=== PATIENT | female | born 1970 | race Caucasian/White ===

== ENCOUNTER → 2019-11-26 09:06 | Outpatient (BNVA) | payer MEDICARE, SELFPAY | PROVIDERS: Family Provider Registered Nurse; PCP Registered Nurse; Visit Provider Nurse Practitioner Psychiatric/Mental Health | DX: M06.08 Rheumatoid arthritis without rheumatoid factor, vertebrae (principal); Z11.59 Encounter for screening for other viral diseases; Z79.899 Other long term (current) drug therapy; M19.90 Unspecified osteoarthritis, unspecified site; G89.29 Other chronic pain; M45.7 Ankylosing spondylitis of lumbosacral region; F33.1 Major depressive disorder, recurrent, moderate; F43.12 Post-traumatic stress disorder, chronic; F41.1 Generalized anxiety disorder | CPT/HCPCS: 36415; 80076; 82306; 82565; 85651; 86140; 86704; 86803; 87340; 99214; G0463 ==

== ENCOUNTER → 2019-11-26 12:29 | Outpatient (BNVA) | payer MEDICARE, MEDICAID, SELFPAY | PROVIDERS: Family Provider Registered Nurse; PCP Registered Nurse; Visit Provider Internal Medicine Rheumatology | DX: Z11.59 Encounter for screening for other viral diseases (principal); Z79.899 Other long term (current) drug therapy; M19.90 Unspecified osteoarthritis, unspecified site; G89.29 Other chronic pain; M45.9 Ankylosing spondylitis of unspecified sites in spine; M45.7 Ankylosing spondylitis of lumbosacral region; M06.08 Rheumatoid arthritis without rheumatoid factor, vertebrae; F33.1 Major depressive disorder, recurrent, moderate; F43.12 Post-traumatic stress disorder, chronic; F41.1 Generalized anxiety disorder | CPT/HCPCS: 85025 ==

== ENCOUNTER → 2019-12-05 11:04 | Outpatient (BNVA) | payer MEDICARE, MEDICAID, SELFPAY | PROVIDERS: Family Provider Registered Nurse; PCP Registered Nurse; Visit Provider Registered Nurse | DX: E11.9 Type 2 diabetes mellitus without complications (principal); E78.5 Hyperlipidemia, unspecified; I10 Essential (primary) hypertension; Z79.899 Other long term (current) drug therapy | CPT/HCPCS: 80053; 80061; 83036; 83721 ==

== ENCOUNTER → 2020-02-18 08:19 | Outpatient (BNVA) | payer MEDICARE, MEDICAID, SELFPAY | PROVIDERS: Family Provider Registered Nurse; PCP Registered Nurse; Visit Provider Nurse Practitioner Psychiatric/Mental Health | DX: F33.1 Major depressive disorder, recurrent, moderate (principal); F43.12 Post-traumatic stress disorder, chronic; F41.1 Generalized anxiety disorder; G89.29 Other chronic pain; F51.04 Psychophysiologic insomnia | CPT/HCPCS: 99212 ==

== ENCOUNTER → 2020-06-03 10:01 | Outpatient (BNVA) | payer MEDICARE, MEDICAID, SELFPAY | PROVIDERS: Family Provider Registered Nurse; PCP Registered Nurse; Visit Provider Nurse Practitioner Psychiatric/Mental Health | DX: F33.1 Major depressive disorder, recurrent, moderate (principal); F41.1 Generalized anxiety disorder; F43.12 Post-traumatic stress disorder, chronic; G89.29 Other chronic pain; F51.04 Psychophysiologic insomnia | CPT/HCPCS: 80053; 80061; 81000; 83036; 83721; 85025; 99212 ==

== ENCOUNTER → 2020-08-26 09:19 | Outpatient (BNVA) | payer MEDICARE, MEDICAID, SELFPAY | PROVIDERS: Family Provider Registered Nurse; PCP Registered Nurse; Visit Provider Nurse Practitioner Psychiatric/Mental Health | DX: F33.1 Major depressive disorder, recurrent, moderate (principal); F41.1 Generalized anxiety disorder; F43.12 Post-traumatic stress disorder, chronic; G89.29 Other chronic pain | CPT/HCPCS: G0463 ==

== ENCOUNTER → 2020-09-01 09:22 | Outpatient (BNVA) | payer MEDICARE, MEDICAID, SELFPAY | PROVIDERS: Family Provider Registered Nurse; PCP Registered Nurse; Visit Provider Registered Nurse | DX: E11.65 Type 2 diabetes mellitus with hyperglycemia (principal); I10 Essential (primary) hypertension; J06.9 Acute upper respiratory infection, unspecified | CPT/HCPCS: 80053; 81000; 83036; 85025 ==

== ENCOUNTER → 2020-09-09 15:25 | Outpatient (BNVA) | payer MEDICARE, MEDICAID, SELFPAY | PROVIDERS: Family Provider Registered Nurse; PCP Registered Nurse; Visit Provider Registered Nurse | DX: E11.65 Type 2 diabetes mellitus with hyperglycemia (principal) | CPT/HCPCS: 36416; 82962 ==

== ENCOUNTER → 2020-10-08 13:09 | Outpatient (BNVA) | payer MEDICARE, MEDICAID, SELFPAY | PROVIDERS: Family Provider Registered Nurse; PCP Registered Nurse; Referring Provider Registered Nurse; Visit Provider Internal Medicine | DX: E11.319 Type 2 diabetes mellitus with unspecified diabetic retinopathy without macular edema (principal); E11.65 Type 2 diabetes mellitus with hyperglycemia; E78.5 Hyperlipidemia, unspecified | CPT/HCPCS: 99204 ==

== ENCOUNTER → 2020-11-17 09:32 | Outpatient (BNVA) | payer MEDICARE, MEDICAID, SELFPAY | PROVIDERS: Family Provider Registered Nurse; PCP Registered Nurse; Visit Provider Nurse Practitioner Psychiatric/Mental Health | DX: F33.1 Major depressive disorder, recurrent, moderate (principal); F41.1 Generalized anxiety disorder; F43.12 Post-traumatic stress disorder, chronic; G89.29 Other chronic pain | CPT/HCPCS: 99213 ==

== ENCOUNTER → 2021-02-09 08:25 | Outpatient (BNVA) | payer MEDICARE, MEDICAID, SELFPAY | PROVIDERS: Family Provider Registered Nurse; PCP Registered Nurse; Visit Provider Nurse Practitioner Psychiatric/Mental Health | DX: F33.1 Major depressive disorder, recurrent, moderate (principal); F41.1 Generalized anxiety disorder; F43.12 Post-traumatic stress disorder, chronic; G89.29 Other chronic pain | CPT/HCPCS: 99213 ==

== ENCOUNTER → 2021-04-15 08:26 | Outpatient (BNVA) | payer MEDICARE, MEDICAID, SELFPAY | PROVIDERS: Family Provider Registered Nurse; PCP Registered Nurse; Visit Provider Internal Medicine Rheumatology | DX: M19.90 Unspecified osteoarthritis, unspecified site (principal); Z11.1 Encounter for screening for respiratory tuberculosis; Z79.899 Other long term (current) drug therapy | CPT/HCPCS: 36415; 80076; 82565; 85025; 85651; 86140; 86480 ==

== ENCOUNTER → 2021-04-22 13:17 | Outpatient (BNVA) | payer MEDICARE, MEDICAID, SELFPAY | PROVIDERS: Family Provider Registered Nurse; PCP Registered Nurse; Visit Provider Internal Medicine Rheumatology | DX: M06.08 Rheumatoid arthritis without rheumatoid factor, vertebrae (principal); Z15.89 Genetic susceptibility to other disease; Z79.899 Other long term (current) drug therapy; M19.90 Unspecified osteoarthritis, unspecified site; M25.512 Pain in left shoulder; M77.8 Other enthesopathies, not elsewhere classified; E11.42 Type 2 diabetes mellitus with diabetic polyneuropathy; Z79.4 Long term (current) use of insulin; M79.7 Fibromyalgia; Z96.652 Presence of left artificial knee joint | CPT/HCPCS: 99214 ==

== ENCOUNTER 2021-04-29 08:51 | Outpatient (CLI) | payer MEDICARE, MEDICAID, SELFPAY ==
--- NOTE | 2021-04-29 08:57 | CT_ITS ---
WS: [id number] CT HEAD NONCONTRAST HISTORY: G44.52 - New daily persistent headache (NDPH) TECHNIQUE: Contiguous axial imaging performed through the brain in 2.5 mm imaging. Bone and soft tiss ue windows. All CT scans at [facility] use at least one of these dose optimization techniq ues: automated exposure control; mA and/or kV adjustment per patient size (includes targeted exams wh ere dose is matched to clinical indication); or iterative reconstruction. DLP: 925.91 mGycm COMPARISON: None available. No acute intracranial hemorrhage, midline shift or mass effect. No atrophy or prior infarcts or herniation. Ventricles: Normal size with no hydrocephalus. Paranasal sinuses: As visualized are clear. Mastoid air cells: Near complete opacification of the RIGHT mastoid air cells. LEFT mastoid air cells are normal. Calvarium and scalp: Skull is intact with no soft tissue edema or swelling. CT/CT head wo con* [id number] IMPRESSION: 1. No acute intracranial hemorrhage or edema. 2. No volume loss or hydrocephalus. 3. Increased opacification RIGHT mastoid air cells.
== END 2021-04-29 08:52 | disposition home or self-care (01) ==
PROVIDERS: PCP Registered Nurse; Visit Provider Registered Nurse
DX: G44.52 New daily persistent headache (NDPH) (principal); R42 Dizziness and giddiness; W19.XXXA Unspecified fall, initial encounter
CPT/HCPCS: 70450

== ENCOUNTER → 2021-05-04 07:23 | Outpatient (BNVA) | payer MEDICARE, MEDICAID, SELFPAY | PROVIDERS: PCP Registered Nurse; Visit Provider Nurse Practitioner Psychiatric/Mental Health | DX: F33.1 Major depressive disorder, recurrent, moderate (principal); F41.1 Generalized anxiety disorder; F43.12 Post-traumatic stress disorder, chronic; G89.29 Other chronic pain | CPT/HCPCS: 99213 ==

== ENCOUNTER 2021-05-13 11:26 | Outpatient (CLI) | payer MEDICARE, MEDICAID, SELFPAY ==
--- NOTE | 2021-05-13 11:45 | MR_ITS ---
WS: [id number] MRI LEFT SHOULDER NONCONTRAST TECHNIQUE: Sagittal T2, coronal T1, T2 and proton density imaging. Axial gradient PDE imaging. CLINICAL INFORMATION: M25.512 - Pain in left shoulder COMPARISON: MRI 2019 FINDINGS: Moderate degenerative arthritis AC joint with mild edema. Mild downsloping of the acromion. Slight na rrowing of the subacromial space. Mild tendinopathy distal supraspinatus. Tiny undersurface tear dist al infraspinatus unchanged. Normal teres minor. Chronic thinning of the distal subscapularis which ap pears intact. Tendinopathy with T2 signal abnormality involving the intra-articular biceps tendon with a small intr asubstance tear overlying the humeral head in the rotator interval. Normal biceps tendon in the bicip ital groove. Normal bone marrow signal in the glenoid and humerus. Degenerative fraying glenoid labru m. MR/MR shoulder LT wo con* [id number] IMPRESSION: 1. Moderate degenerative arthritis AC joint with mild edema. Mild downsloping of the acromion. 2. Normal rotator cuff. Mild chronic thinning of the distal subscapularis appe ars intact. 3. Tendinopathy with tiny intrasubstance tear involving the intra-articular bi ceps tendon overlying the humeral head in the rotator interval. 4. Tiny undersurface insertional tear infraspinatus similar to previous. 5. Mild tendinopathy distal supraspinatus. 6. No acute fractures.
== END 2021-05-13 11:27 | disposition home or self-care (01) ==
LOC: RADSHAW 11:30
PROVIDERS: PCP Registered Nurse; Visit Provider Registered Nurse
DX: M19.012 Primary osteoarthritis, left shoulder (principal); R60.0 Localized edema; W10.8XXA Fall (on) (from) other stairs and steps, initial encounter
CPT/HCPCS: 73221

== ENCOUNTER → 2021-05-26 15:36 | Outpatient (BNVA) | payer MEDICARE, MEDICAID, SELFPAY | PROVIDERS: PCP Registered Nurse; Visit Provider Registered Nurse | DX: L02.91 Cutaneous abscess, unspecified (principal) | CPT/HCPCS: 87070; 87075; 87077; 87184; 87205 ==

== ENCOUNTER 2021-06-05 13:03 | Outpatient (RCR) | payer MEDICARE, MEDICAID, SELFPAY | END 2021-06-16 23:59 | disposition home or self-care (01) | LOC: SPT 13:03 | PROVIDERS: PCP Registered Nurse; Referring Provider Registered Nurse; Visit Provider Registered Nurse | DX: M67.912 Unspecified disorder of synovium and tendon, left shoulder (principal) | CPT/HCPCS: 97110; 97162 ==

== ENCOUNTER 2021-06-17 06:00 | Outpatient (RCR) | payer MEDICARE, MEDICAID, SELFPAY | END 2021-07-16 23:59 | disposition home or self-care (01) | LOC: SPT 06:00 | PROVIDERS: PCP Registered Nurse; Referring Provider Registered Nurse; Visit Provider Registered Nurse | DX: M67.912 Unspecified disorder of synovium and tendon, left shoulder (principal) | CPT/HCPCS: 97110 ==

== ENCOUNTER → 2021-07-10 11:09 | Outpatient (BNVA) | payer MEDICARE, MEDICAID, SELFPAY | PROVIDERS: PCP Registered Nurse; Visit Provider Orthopaedic Surgery | DX: Z01.812 Encounter for preprocedural laboratory examination (principal); Z20.822 Contact with and (suspected) exposure to COVID-19 | CPT/HCPCS: 87635 ==

== ENCOUNTER 2021-07-16 05:28 | Day surgery (SDC) | payer MEDICARE, MEDICAID, SELFPAY ==
[2021-07-15 14:11] VITALS: BMI 36.7
[2021-07-16] VITALS (7 sets, daily range): BP systolic 152–162; BP diastolic 81–113; PULSE 80–95; RESP 15–18; TEMP 36.8–36.9; O2SAT 95–100
[2021-07-16] MEDS: sodium chloride 0.9% 1,000 ML 30 ML IV (06:02)
[2021-07-16 06:05] LABS: Glucose Point of Care 440 mg/dL (70-110)
[2021-07-16] MEDS: scopolamine 1.5 Patch 1 PATCH TRANSDERMA (06:29)
--- NOTE | 2021-07-16 07:55 | ANES.PREANE2 ---
Pre-Anesthetic Assessment Pre-Anesthetic Assessment: Height/Weight: Height 1.63 m Weight 97.069 kg Temp Pulse Resp BP Pulse Ox 98.4 F 91 18 156/99 99 07/16/21 05:48 07/16/21 05:48 07/16/21 05:48 07/16/21 05:48 07/16/21 05:48 Preop Diagnosis: Adhesive capsulitis left shoulder Proposed Procedure: Operation Date: 07/16/21 08:00 Proposed Procedures p Manipulation left shoulder 23528 E11.618 M75.00(Left) - Reza Rodgers MD Familial anesthetic complications: PONV Was Beta Le taken within 24 hours: Yes Was Clonidine taken within 24 hours: N/A Last intake: Intake Last Liquid Date 07/15/21 Last Liquid Time 23:50 Last Solid Date 07/15/21 Last Solid Time 20:00 Social: Social History: No alcohol and No tobacco Exam: Pre-Anes Outpt Exam: alert, oriented x 3, clear to auscultation bilaterally and regular rate & rhythm Airway: Cervical ROM: WNL MP: 3 Dentition: Chipped Additional comments: poor dentition CV/HEM: CV/HEM: HTN Metabolic: Metabolic: DM (very poorly controlled, BG average 380, hgbA1C 13), Hyperlipidemia and Morbid obesity Musc/skel: Comments: inflammatory arthritis on chronic steroid use Anesthetic Plan: ASA status: 4 Anesthesia: General and Regional (specify below) Other: LMA Risk of > 500 ml blood loss (7ml/kg in children): No Meds/Allergies Current Medications: Current Medications Generic Name Dose Route Start Last Admin Trade Name Freq PRN Reason Stop Dose Admin Sodium Chloride 1,000 mls @ 30 ml s/hr 07/16/21 05:45 07/16/21 06:02 Sodium Chloride 0.9% IV 07/17/21 05:44 30 mls/hr .Q24H ALMITA Administration PFSH Anesthesia PFSH: Medical History Chronic insomnia See subjective note below. Chronic pain See subjective note below. Chronic post-traumatic stress disorder (PTSD) Essential hypertension FH: total knee replacement left Generalized anxiety disorder High risk medication use HLA B27 (HLA B27 positive) Inflammatory arthritis Major depressive disorder, recurrent, moderate Seronegative spondyloarthropathy Uncontrolled type 2 diabetes mellitus Surgical History History of appendectomy History of hysterectomy for benign disease History of left knee replacement History of tonsillectomy Family History Mother Hypertension Diabetes Psychiatric illness Thyroid disease Father , in his 50's Family history of premature coronary artery disease Hyperlipidemia Myocardial infarction Brother Hypertension Sister No problems noted. Denies family history of Rheumatoid arthritis Lupus Social History Second hand smoke exposure: No Alcohol intake: never History of recent travel: No Data Anesthesia Other Labs: Laboratory Results - last 48 hr 07/16/21 06:00 POC Glucose 440 H Cardiac Studies: No Data to Display
[2021-07-16] MEDS: insulin regular-human 100 units/1 mL 10 UNIT IVP (08:04)
--- NOTE | 2021-07-16 08:06 | W.PM.OPSUD ---
Surgery/Procedure H&P Update DATE OF PROCEDURE: July 16, 2021 DATE H&P PERFORMED: 06/30/21 PREOP DIAGNOSIS: Adhesive capsulitis left shoulder PLANNED PROCEDURE: Operation Date: 07/16/21 08:00 Proposed Procedures p Manipulation left shoulder 54997 E11.618 M75.00(Left) - Reza Rodgers MD
--- NOTE | 2021-07-16 08:28 | PM.OP ---
Operative Report Date of procedure: July 16, 2021 Pre-op Diagnosis: Adhesive capsulitis left shoulder Post-op diagnosis: same Post-op Findings: Same Procedure Done: Manipulation under anesthesia left shoulder Pathology: none sent Surgeon: Reza Rodgers Anesthesia: MAC Complications: None Findings: Preoperatively the shoulder can be flexed only approximately 100 degrees and externally rotated 30 degrees. She could be abducted 50 degrees. Condition: stable Brief History: The patient is a 50-year-old diabetic with pain and loss of motion in the left shoulder attributable to adhesive capsulitis. She had failed conservative program of physical therapy with persistent pain and motion loss. She is taken to the operating room today for surgical manipulation to improve motion and overall function Procedure: The patient was taken the operating room and sedated by anesthesia. Once adequate sedation was obtained a timeout was performed. The shoulder was initially brought through a gentle range of motion with findings noted above. The contralateral shoulder was used for comparison. Initially the left shoulder was brought into 150 degrees of flexion, identical to the contralateral side. It was then brought to 90 degrees of abduction and externally rotated 70 degrees and axial rotated 70 degrees, again identical to the contralateral side. Find the elbow was brought to the side and externally rotated to 70 degrees, identical to the contralateral side. The patient was transferred back to recovery room in stable condition.
[2021-07-16] MEDS: oxyCODONE 5 mg IR Tab/Cap PO (09:16)
== END 2021-07-16 09:40 | disposition home or self-care (01) ==
PROVIDERS: PCP Registered Nurse; Visit Provider Orthopaedic Surgery
PROC: (CPT 23700; principal; 2021-07-16 08:00)
DX: M75.02 Adhesive capsulitis of left shoulder (principal); I10 Essential (primary) hypertension; E11.9 Type 2 diabetes mellitus without complications; E78.5 Hyperlipidemia, unspecified; E66.01 Morbid (severe) obesity due to excess calories; Z68.36 Body mass index [BMI] 36.0-36.9, adult; M19.90 Unspecified osteoarthritis, unspecified site; Z79.52 Long term (current) use of systemic steroids; F33.9 Major depressive disorder, recurrent, unspecified; Z82.49 Family history of ischemic heart disease and other diseases of the circulatory system; Z83.3 Family history of diabetes mellitus
CPT/HCPCS: 23700; 36416; 82962; 96374; J1815; J2704; J2795; J3010; J7030

== ENCOUNTER 2021-07-17 06:00 | Outpatient (RCR) | payer MEDICARE, MEDICAID, SELFPAY | END 2021-08-16 23:59 | disposition home or self-care (01) | LOC: SPT 06:00 | PROVIDERS: PCP Registered Nurse; Visit Provider Orthopaedic Surgery | DX: Z47.89 Encounter for other orthopedic aftercare (principal); M67.912 Unspecified disorder of synovium and tendon, left shoulder | CPT/HCPCS: 97110; 97161 ==

== ENCOUNTER → 2021-07-27 07:03 | Outpatient (BNVA) | payer MEDICARE, MEDICAID, SELFPAY | PROVIDERS: PCP Registered Nurse; Visit Provider Nurse Practitioner Psychiatric/Mental Health | DX: F33.1 Major depressive disorder, recurrent, moderate (principal); F41.1 Generalized anxiety disorder; F43.12 Post-traumatic stress disorder, chronic | CPT/HCPCS: 99213 ==

== ENCOUNTER → 2021-08-12 08:41 | Outpatient (BNVA) | payer MEDICARE, MEDICAID, SELFPAY | PROVIDERS: PCP Registered Nurse; Visit Provider Internal Medicine Rheumatology | DX: M19.90 Unspecified osteoarthritis, unspecified site (principal); Z15.89 Genetic susceptibility to other disease; Z79.899 Other long term (current) drug therapy | CPT/HCPCS: 36415; 80076; 82565; 85025; 86140 ==

== ENCOUNTER → 2021-08-19 12:41 | Outpatient (BNVA) | payer MEDICARE, MEDICAID, SELFPAY | PROVIDERS: PCP Registered Nurse; Visit Provider Internal Medicine Rheumatology | DX: M06.08 Rheumatoid arthritis without rheumatoid factor, vertebrae (principal); Z15.89 Genetic susceptibility to other disease; Z79.899 Other long term (current) drug therapy; M19.90 Unspecified osteoarthritis, unspecified site; M25.512 Pain in left shoulder; G89.29 Other chronic pain; E11.42 Type 2 diabetes mellitus with diabetic polyneuropathy; Z79.4 Long term (current) use of insulin; M79.7 Fibromyalgia; F43.10 Post-traumatic stress disorder, unspecified; F32.A Depression, unspecified; E78.5 Hyperlipidemia, unspecified; M77.8 Other enthesopathies, not elsewhere classified; Z96.652 Presence of left artificial knee joint | CPT/HCPCS: 99214 ==

== ENCOUNTER → 2021-10-08 10:21 | Outpatient (BNVA) | payer MEDICARE, MEDICAID, SELFPAY | PROVIDERS: PCP Registered Nurse; Visit Provider Registered Nurse | DX: Z11.52 Encounter for screening for COVID-19 (principal) | CPT/HCPCS: 87635 ==

== ENCOUNTER → 2021-10-14 09:56 | Outpatient (BNVA) | payer MEDICARE, MEDICAID, SELFPAY | PROVIDERS: PCP Registered Nurse; Visit Provider Internal Medicine | DX: Z11.52 Encounter for screening for COVID-19 (principal); E11.65 Type 2 diabetes mellitus with hyperglycemia; E78.5 Hyperlipidemia, unspecified | CPT/HCPCS: 80053; 80061; 83036 ==

== ENCOUNTER → 2021-10-19 07:59 | Outpatient (BNVA) | payer MEDICARE, MEDICAID, SELFPAY | PROVIDERS: PCP Registered Nurse; Visit Provider Nurse Practitioner Psychiatric/Mental Health | DX: F33.1 Major depressive disorder, recurrent, moderate (principal); F41.1 Generalized anxiety disorder; F43.12 Post-traumatic stress disorder, chronic | CPT/HCPCS: 99213 ==

== ENCOUNTER → 2021-10-21 11:01 | Outpatient (BNVA) | payer MEDICARE, MEDICAID, SELFPAY | PROVIDERS: PCP Registered Nurse; Visit Provider Internal Medicine | DX: E11.65 Type 2 diabetes mellitus with hyperglycemia (principal); E11.319 Type 2 diabetes mellitus with unspecified diabetic retinopathy without macular edema; E78.5 Hyperlipidemia, unspecified; Z79.4 Long term (current) use of insulin; Z79.84 Long term (current) use of oral hypoglycemic drugs | CPT/HCPCS: 99214 ==

== ENCOUNTER 2021-10-31 12:47 | Emergency (ER) | payer MEDICARE, MEDICAID, SELFPAY ==
[2021-10-31 13:08] VITALS: BP 188/125; PULSE 107; RESP 16; TEMP 37; O2SAT 99
--- NOTE | 2021-10-31 15:27 | XRR_ITS ---
PROCEDURE INFORMATION: Exam: XR Chest Exam date and time: 10/31/2021 3:27 PM Age: 50 years old Clinical indication: Cough and dyspnea. TECHNIQUE: Imaging protocol: XR of the chest. Views: 1 view. COMPARISON: CR Chest 2 views* [id number] 11/26/2014 2:29 PM FINDINGS: Lungs: No pulmonary consolidation. Pleural spaces: No pleural effusion. No pneumothorax. Heart/Mediastinum: The cardiac silhouette is approximately unchanged given differences in patient rotation. No gross evidence of pneumomediastinum. Bones/joints: No gross fracture. XR/XR chest 1V portable [id number] IMPRESSION: No acute cardiopulmonary abnormality identified.
--- NOTE | 2021-10-31 15:44 | ED_ITS ---
HPI - COVID General: Chief Complaint: COVID symptoms Stated Complaint: Coughing,runny nose, vomitting from coughing Time Seen by Provider: 10/31/21 15:26 Triage information: Has fever, cough or shortness of breath . No known COVID + exposure last 14 days History of Present Illness: HPI Narrative: 50-year-old female presents emergency room cough runny nose myalgias posttussive vomiting as well as sore throat. No anosmia no diarrhea has not been vaccinated for COVID not previously known to be COVID-positive. MD complaint: has COVID symptoms COVID 19 common symptoms: positive fever(s), chills, cough and non-productive cough; negative throat pain, nasal congestion, nausea, vomiting or diarrhea COVID 19 other sytmptoms: negative chest pain, requiring oxygen or respiratory distress Onset (ago): week(s) (1) Severity: mild Pertinent comorbid conditions: obesity Treatment prior to arrival: acetaminophen and ibuprofen COVID Results: SARS-CoV-2 RNA (RT-PCR) Detected (NOT DETECTED) A 10/31/21 15:45 10/31/21 SARS-CoV-2 (PCR) Not detected (NOT DETECT) 10/08/21 10:21 10/08/21 Coronavirus Type 229E (PCR) Not detected (NOT DETECT) 10/08/21 10:21 10/08/21 Review of Systems Const: Reports: fever(s) and chills ENMT: Denies: throat pain, ear or mastoid pain, nasal discharge or nasal congestion Card: Denies: chest pain Resp: Reports: non-productive cough GI: Denies: abdominal pain, nausea, vomiting, hematemesis, coffee ground emesis, diarrhea, constipation, bloating, hematochezia or melena : Denies: flank pain, difficulty voiding, dysuria, urinary frequency or urinary urgency Skin/Breast: Denies: rash or pruritus PFSH ED PFSH: Medical History Chronic insomnia See subjective note below. Chronic pain See subjective note below. Chronic post-traumatic stress disorder (PTSD) Essential hypertension FH: total knee replacement left Generalized anxiety disorder High risk medication use HLA B27 (HLA B27 positive) Inflammatory arthritis Major depressive disorder, recurrent, moderate Psychiatric care Seronegative spondyloarthropathy Uncontrolled type 2 diabetes mellitus Surgical History History of appendectomy History of hysterectomy for benign disease History of left knee replacement History of tonsillectomy Family History Mother Hypertension Diabetes Psychiatric illness Thyroid disease Father , in his 50's Family history of premature coronary artery disease Hyperlipidemia Myocardial infarction Brother Hypertension Sister No problems noted. Denies family history of Rheumatoid arthritis Lupus Social History Smoking and tobacco status: never smoked Second hand smoke exposure: No Alcohol intake: never History of recent travel: No Physical Exam Const: COMMON NORMALS: no acute distress GENERAL APPEARANCE: cooperative and comfortable ORIENTATION/CONSCIOUSNESS: Yes awake, Yes oriented to person, Yes oriented to place and Yes oriented to time HENMT: COMMON NORMALS: normocephalic, atraumatic, hearing grossly normal bilaterally and external ears normal HEAD & SCALP: normocephalic and atraumatic EXTERNAL EAR: Yes external ears normal Neck/C-Spine: COMMON NORMALS: no JVD Resp: COMMON NORMALS: normal respiratory effort and No use of accessory muscles AUSCULTATION: wheezes (Scant bilateral) Cardio: COMMON NORMALS: no JVD, regular rate, regular rhythm and No murmurs present (Cardio) RATE: regular rate RHYTHM: regular rhythm GI: COMMON NORMALS: Soft to palpation and No hepatosplenomegaly present AUSCULTATION: Yes normoactive bowel sounds PALPATION: Yes Soft to palpation, No Tenderness to palpation present (GI), No Guarding due to palpation present (GI) and Yes No hepatosplenomegaly present Extremity: COMMON NORMALS: normal to inspection, capillary refill normal, no clubbing, cyanosis or edema, no calf tenderness and no pedal edema Neuro: SENSORIUM/ORIENTATION: Yes oriented to person, Yes oriented to place and Yes oriented to time Skin: COMMON NORMALS: no rashes or lesions noted GENERAL SKIN EXAM: no rashes or lesions noted Course Vital Signs: Vital signs: Vital Signs Temperature 98.6 F 10/31/21 13:08 Pulse Rate 97 10/31/21 16:09 Respiratory Rate 18 10/31/21 16:09 Blood Pressure 173/102 10/31/21 15:45 Pulse Oximetry 99 10/31/21 16:09 MDM - COVID MDM Narrative Medical decision making narrative: Clinically suspect COVID-19 supportive cares monitor home O2 sats return for further problems we will try to make arrangements at a for outpatient medical advice Lab Data Labs: Lab Results 10/31/21 15:45 SARS-CoV-2 RNA (RT-PCR) Detected A (NOT DETECTED) COVID Results: SARS-CoV-2 RNA (RT-PCR) Detected (NOT DETECTED) A 10/31/21 15:45 10/31/21 SARS-CoV-2 (PCR) Not detected (NOT DETECT) 10/08/21 10:21 10/08/21 Coronavirus Type 229E (PCR) Not detected (NOT DETECT) 10/08/21 10:21 10/08/21 Discharge Plan Discharge Patient Disposition: Home Clinical Impression: Clinical diagnosis of COVID-19 Condition: Stable Prescriptions: No Action Cosentyx (2 Syringes) 150 mg/mL syringe 300 mg SUBCUT .Q4 weeks Qty: 2 3RF sulfasalazine 500 mg tablet See Rx Instructions .ROUTE .COMPLEX Qty: 120 3RF Dose Instruction: TAKE 2 TABLETS BY MOUTH TWICE DAILY. TAKE WITH FOOD Rx Instructions: TAKE 2 TABLETS BY MOUTH TWICE DAILY. TAKE WITH FOOD duloxetine [Cymbalta] 60 mg capsule,delayed release(DR/EC) 60 mg PO DAILY Qty: 90 0RF Rx Instructions: take one capsule by mouth every day with the 30 mg duloxetine [Cymbalta] 30 mg capsule,delayed release(DR/EC) 30 mg PO DAILY Qty: 90 0RF Rx Instructions: take one capsule by mouth every day with the 60 mg amitriptyline 100 mg tablet 100 mg PO .QHS Qty: 90 0RF Rx Instructions: take one tablet by mouth daily at bedtime Belsomra 5 mg tablet 5 mg PO .QHS Qty: 90 0RF Rx Instructions: take one tablet by mouth daily at bedtime ergocalciferol (vitamin D2) 2,000 unit tablet 2,000 unit PO DAILY 0RF (DME) lancets [BD Ultra Fine Lancets] 33 gauge misc See Rx Instructions .ROUTE .MEDSUPPLY Qty: 100 3RF Rx Instructions: two times daily amlodipine 10 mg tablet 10 mg PO DAILY Qty: 90 0RF Janumet XR 100-1,000 mg tablet, ER multiphase 24 hr 1 tab PO DAILY Qty: 90 3RF diclofenac sodium 75 mg tablet,delayed release (DR/EC) 75 mg PO BID PRN (Reason: pain, moderate-severe ) Qty: 30 1RF atorvastatin 20 mg tablet See Rx Instructions .ROUTE .COMPLEX Qty: 90 0RF Dose Instruction: Take 1 tablet by mouth once daily Rx Instructions: Take 1 tablet by mouth once daily Levemir FlexTouch U-100 Insuln 100 unit/mL (3 mL) insulin pen 110 unit SUBCUT DAILY 0RF albuterol sulfate [ProAir HFA] 90 mcg/actuation HFA aerosol inhaler 1 inh inhalation QID Qty: 8.5 0RF amoxicillin-pot clavulanate [Augmentin] 875-125 mg tablet 1 tab PO BID 7 Days Qty: 14 0RF oxycodone 5 mg tablet 5 mg PO Q4H PRN (Reason: pain) 0RF Label Comments: Patient states no longer using this medicine. (DME) OneTouch Verio test strips Strip See Rx Instructions .ROUTE .MEDSUPPLY Qty: 100 0RF Rx Instructions: one strip daily to check blood sugar losartan-hydrochlorothiazide 100-12.5 mg tablet 1 tab PO DAILY Qty: 30 0RF (DME) FreeStyle Palak 2 Sensor Kit See Rx Instructions .Route Qty: 2 3RF Rx Instructions: As directed (DME) FreeStyle Palak 2 [place] Misc See Rx Instructions .Route Qty: 1 0RF Rx Instructions: As directed Jardiance 25 mg tablet 25 mg PO QAM Qty: 90 3RF Discharge Orders: Discharge ED (Routine); Ordered 10/31/21 Ordered By: Peng Farley Referrals: Joellen Hill, STRATEGY INTERN [Primary Care Provider] - Discharge Diet: Usual diet Discharge Activity: Resume usual activity Patient Instructions: Opioid Safety Activity Restrictions/Additional Instructions: Clinically suspect that you do have COVID-19 at this time. We will contact you with the test once it results. You would be a candidate for monoclonal antibodies which can be ordered once the test result comes back if you have any further problems or difficulty with breathing return to the emergency room. Monitor your oxygen saturation with a pulse oximeter given to you in the ER. Should remain above 90% while at rest. Coding Level of Care Code ED As[employer]er [employer]assis for Chg Fwd Exam Comprehensive
[2021-10-31 15:45] VITALS: BP 173/102; PULSE 99; RESP 16; O2SAT 100
[2021-10-31 16:09] VITALS: PULSE 97; RESP 18; O2SAT 99
[2021-11-02 02:37] LABS: Quest SARS-CoV-2 RNA DETECTED (NOT DETECTED)
== END 2021-10-31 16:05 | disposition home or self-care (01) ==
PROVIDERS: Emergency Provider Family Medicine; PCP Registered Nurse
DX: U07.1 COVID-19 (principal); Z79.4 Long term (current) use of insulin; I10 Essential (primary) hypertension; E11.9 Type 2 diabetes mellitus without complications
CPT/HCPCS: 71045; 87635; 99282

== ENCOUNTER → 2021-12-25 11:06 | Outpatient (BNVA) | payer MEDICARE, MEDICAID, SELFPAY | PROVIDERS: PCP Registered Nurse; Visit Provider Internal Medicine | DX: E11.319 Type 2 diabetes mellitus with unspecified diabetic retinopathy without macular edema (principal); E11.65 Type 2 diabetes mellitus with hyperglycemia; E78.5 Hyperlipidemia, unspecified; Z79.4 Long term (current) use of insulin | CPT/HCPCS: 99214 ==

== ENCOUNTER 2022-05-27 09:38 | Outpatient (CLI) | payer MEDICARE, MEDICAID, SELFPAY ==
[2022-05-27 10:44] LABS: Basophils % 0.7 %; Eosinophils # 0.4 10^3/uL (0.0-0.8); Eosinophils % 6.3 %; Hematocrit 39.5 % (37.0-47.0); Hemoglobin 13.1 g/dL (11.5-15.3); Lymphocytes # 2.3 10^3/uL (0.8-4.8); Mean Corpuscular HGB Conc 33.2 g/dL (30.0-36.0); Mean Corpuscular Hemoglobin 26.8 pg (28.0-34.0); Mean Corpuscular Volume 80.9 fl (81-99); Mean Platelet Volume 10.8 fL (7.4-10.4); Monocytes # 0.4 10^3/uL (0.2-0.9); Monocytes % 7.8 %; Neutrophils # 2.39 10^3/uL (1.8-7.7); Neutrophils % 43.3 %; Nucleated Red Blood Cells % 0 %; Platelet Count 293 10^3/cmm (130-400); Red Blood Count 4.88 10^6/uL (4.1-5.3); Red Cell Distribution Width 13.5 % (12.1-15.1); White Blood Count 5.5 10^3/uL (4.0-10.0)
[2022-05-27 11:03] LABS: Alanine Aminotransferase 14 U/L (0-33); Albumin Level 3.8 g/dL (3.5-5.2); Alkaline Phosphatase 172 IU/L (35-105); Aspartate Amino Transferase 14 U/L (0-32); C Reactive Protein 7.8 mg/L (0.0-4.9); Chol HDL Ratio 5.09 mg/dL (0.0-4.40); Cholesterol 173 mg/dL (0-200); Globulin 2.9 g/dL (1.3-4.6); Glomerular Filtration Rate 58.5 mL/min (90-130); HDL Cholesterol 34 mg/dL (60-100); LDL Cholesterol Calculated 63 mg/dL (50-129); LDL HDL Ratio 1.85 RATIO (0.00-3.22); Total Bilirubin 0.7 mg/dL (0.15-1.2); Total Protein 6.7 g/dL (6.6-8.7); Triglycerides 379 mg/dL (0-150)
[2022-05-27 11:21] LABS: Estmated Average Glucose 252; Hemoglobin A1C 10.4 % (4.0-6.0)
== END 2022-05-27 09:39 | disposition home or self-care (01) ==
PROVIDERS: Absent Provider Internal Medicine; PCP Registered Nurse; Visit Provider Internal Medicine Rheumatology
DX: M06.08 Rheumatoid arthritis without rheumatoid factor, vertebrae (principal); E11.319 Type 2 diabetes mellitus with unspecified diabetic retinopathy without macular edema; E11.65 Type 2 diabetes mellitus with hyperglycemia; E78.5 Hyperlipidemia, unspecified; Z79.4 Long term (current) use of insulin; Z79.84 Long term (current) use of oral hypoglycemic drugs; Z79.899 Other long term (current) drug therapy
CPT/HCPCS: 80061; 80076; 82565; 83036; 85025; 86140; 99214

== ENCOUNTER 2022-06-03 11:19 | Outpatient (CLI) | payer MEDICARE, MEDICAID, SELFPAY ==
--- NOTE | 2022-06-03 11:26 | MM_ITS ---
WS: [id number] Bilateral screening 3D tomosynthesis digital mammogram, 06/03/2022 Clinical Data: Z12.39 - Encounter for other screening for malignant neop... Comparison: None. Findings: The breast parenchymal pattern shows fat replacement. No spiculated masses or clustered calcification s are seen. There are no secondary signs of carcinoma. MM/[place] [id number] Impression: 1. Negative bilateral mammogram no prior exam for review. 2. Recommend annual screening mammograms. BIRADS: 1-Negative FOLLOW UP: 1 Year Follow-up The CAD price checker was used.
== END 2022-06-03 11:20 | disposition home or self-care (01) ==
LOC: RAD 11:21
PROVIDERS: PCP Registered Nurse; Visit Provider Registered Nurse
DX: Z12.31 Encounter for screening mammogram for malignant neoplasm of breast (principal)
CPT/HCPCS: 77063; 77067

== ENCOUNTER → 2022-06-10 09:18 | Outpatient (BNVA) | payer MEDICAID, SELFPAY | PROVIDERS: PCP Registered Nurse; Visit Provider Surgery | DX: Z12.11 Encounter for screening for malignant neoplasm of colon (principal) | CPT/HCPCS: 99024 ==

== ENCOUNTER → 2022-06-17 12:20 | Outpatient (BNVA) | payer MEDICARE, MEDICAID, SELFPAY | PROVIDERS: PCP Registered Nurse; Visit Provider Internal Medicine Rheumatology | DX: Z79.899 Other long term (current) drug therapy (principal); M19.90 Unspecified osteoarthritis, unspecified site; M06.08 Rheumatoid arthritis without rheumatoid factor, vertebrae; Z15.89 Genetic susceptibility to other disease | CPT/HCPCS: 82565; 84520 ==

== ENCOUNTER 2022-07-08 07:51 | Day surgery (SDC) | payer MEDICARE, MEDICAID, SELFPAY ==
[2022-07-07 10:21] VITALS: BMI 38.9
[2022-07-08 08:08] VITALS: BP 169/112; PULSE 120; RESP 18; TEMP 36.2; O2SAT 99
[2022-07-08] MEDS: sodium chloride 0.9% 1,000 ML 30 ML IV (08:23)
--- NOTE | 2022-07-08 09:43 | P.ANESASSM_ITS ---
Pre-Anesthetic Assessment Height/Weight: Height 1.63 m Weight 102.965 kg Temp Pulse Resp BP Pulse Ox O2 Del Method 97.2 F L 120 H 18 169/112 99 07/08/22 08:08 07/08/22 08:08 07/08/22 08:08 07/08/22 08:08 07/08/22 08:08 07/08/22 08:08 Preop Diagnosis: Adhesive capsulitis left shoulder Operation Date: 07/08/22 09:30 Proposed Procedures p Colonoscopy 46198,Z12.11(Not Applicable) - Lino Ferraro MD Familial anesthetic complications: none Was Beta Le taken within 24 hours: N/A Was Clonidine taken within 24 hours: N/A Last intake: Intake Last Liquid Date 07/07/22 Last Liquid Time 23:50 Last Solid Date 07/06/22 Last Solid Time 20:00 Social No alcohol and No tobacco Exam alert, oriented x 3, clear to auscultation bilaterally and regular rate & rhythm Airway Submandibular: within normal limits Cervical ROM: within normal limits Mallampati: Class II Dentition: chipped (Chipped upper left central incisor ) Pulmonary None reported CV/HEM Hypertension Chronic Renal Insufficiency Hepatic None reported GI Gastroesophageal Reflux Disease (Poorly controlled ) Metabolic Diabetes Mellitus and Hyperlipidemia Obesity Musc/skel Osteoarthritis/DJD Cervical neck pain Inflammatory arthritis Neuropsych Anxiety and Depression Anesthetic Plan ASA status: 3 Anesthesia: Anesthesia Evaluation and MAC Other: I discussed with the patient risks, goals, and benefits of MAC and general anesthesia. We discussed spectrum of MAC anesthesia including conversion to general as well as possibility of recall of intraoperative stimuli including discomfort/pain. Patient agrees to proceed with MAC. Medications/Allergies Home Medications Medication Instructions Recorded Confirmed Last Taken Type ergocalciferol (vitamin D2) 50 mcg 2,000 unit PO DAILY 11/26/19 07/08/22 07/07/22 History (2,000 unit) tablet lancets 33 gauge (BD Ultra Fine #100 ea 12/05/19 07/01/22 Unknown Rx Lancets) amlodipine 10 mg tablet 10 mg PO DAILY #90 tabs 09/01/20 07/08/22 07/07/22 Rx losartan 100 1 tab PO DAILY #30 tabs 04/21/21 07/08/22 07/07/22 Rx mg-hydrochlorothiazide 12.5 mg tablet diclofenac sodium 75 mg 75 mg PO BID PRN pain, 04/22/21 07/08/22 07/06/22 Rx tablet,delayed release moderate-severe #30 tabs flash glucose scanning reader #1 ea 05/29/21 07/01/22 Unknown Rx (FreeStyle Palak 2 [place]) empagliflozin 25 mg tablet 25 mg PO QAM #90 tabs 05/27/22 07/08/22 07/07/22 Rx (Jardiance) flash glucose sensor (FreeStyle #6 ea 05/27/22 07/01/22 Unknown Rx Palak 2 Sensor) sitagliptin 100 mg-metformin ER 1 tab PO DAILY #90 tabs 05/27/22 07/08/22 07/07/22 Rx 1,000 mg tablet,extended [id number] mp (Janumet XR) secukinumab 150 mg/mL subcutaneous 300 mg (2 mL) SUBCUT .Q4 weeks #2 06/17/22 07/08/22 06/16/22 Rx syringe (Cosentyx 300 mg/2 mL Syringes () amitriptyline 100 mg tablet 100 mg PO .QHS #90 tabs 07/01/22 07/08/22 07/06/22 Rx duloxetine 30 mg capsule,delayed 30 mg PO DAILY #90 caps 07/01/22 07/08/22 07/07/22 Rx release (Cymbalta) duloxetine 60 mg capsule,delayed 60 mg PO DAILY #90 caps 07/01/22 07/08/22 07/07/22 Rx release (Cymbalta) suvorexant 5 mg tablet (Belsomra) 5 mg PO .QHS #90 tabs 07/01/22 07/08/22 07/06/22 Rx atorvastatin 20 mg tablet 20 mg PO DAILY 07/07/22 07/08/22 07/07/22 History insulin regular hum U-500 conc See Rx Instructions .Route .COMPLEX 07/07/22 07/08/22 07/07/22 History (Humulin R U-500 (Conc) Insulin Kwikpen) sulfasalazine 500 mg tablet 1,000 g PO DAILY 07/07/22 07/08/22 07/07/22 History Allergies Allergy/AdvReac Type Severity Reaction Status Date / Time venom-honey bee Allergy Severe ALGY-Redness Verified 07/07/22 10:16 of Skin codeine AdvReac Severe ADR-Vomitin Verified 07/07/22 10:16 g morphine AdvReac Severe ADR-Vomitin Verified 07/07/22 10:16 g propoxyphene AdvReac Severe ADR-Vomitin Verified 07/07/22 10:16 [From Darvocet-N] g latex AdvReac Intermediate ALGY-Rash Verified 07/07/22 10:16 Current Medications Generic Name Dose Route Start Last Admin Trade Name Efrain PRN Reason Stop Dose Admin Sodium Chloride 1,000 mls @ 30 mls/hr 07/08/22 08:00 07/08/22 08:23 Sodium Chloride 0.9% IV 07/09/22 07:59 30 mls/hr .Q24H ALMITA Administration PFSH Anesthesia Medical History Chronic insomnia See subjective note below. Chronic pain See subjective note below. Chronic post-traumatic stress disorder (PTSD) Based on the information provided and the extensive previous chart history, Lizy meets the diagnostic criteria for Post-traumatic stress disorder in that she reported directly experienced traumatic events with symptoms including: recurrent, involuntary, and intrusive distressing memories of the traumatic event(s); dissociative reactions) in which the individual feels or acts as if the traumatic event(s) were recurring; intense or prolonged psychological distress at exposure to internal or external cues that symbolize or resemble an aspect of the traumatic event(s);persistent avoidance of stimuli associated with the traumatic event(s), beginning after the traumatic event(s) occurred, as evidenced by avoidance of or efforts to avoid distressing memories, thoughts, or feelings about or closely associated with the traumatic event(s) and avoidance of or efforts to avoid external reminders that arouse distressing memories, thoughts, or feelings about or closely associated with the traumatic event; persistent and exaggerated negative beliefs or expectations about oneself, others, or the world; persistent negative emotional state; markedly diminished interest or participation in significant activities; persistent inability to experience positive emotions; irritable behavior and angry outbursts; problems with concentration; sleep disturbances. The duration of the disturbance is more than one month. The disturbance causes clinically significant distress or impairment in social, occupational, or other important areas of functioning. Essential hypertension FH: total knee replacement left Generalized anxiety disorder High risk medication use HLA B27 (HLA B27 positive) Inflammatory arthritis Major depressive disorder, recurrent, in partial remission Major depressive disorder, recurrent, moderate Psychiatric care Seronegative spondyloarthropathy Uncontrolled type 2 diabetes mellitus Surgical History History of appendectomy History of hysterectomy for benign disease History of left knee replacement History of tonsillectomy Family History Mother Hypertension Diabetes Psychiatric illness Thyroid disease Father , in his 50's Family history of premature coronary artery disease Hyperlipidemia Myocardial infarction Brother Hypertension Sister No problems noted. Denies family history of Rheumatoid arthritis Lupus Social History Smoking and tobacco status: never smoked Second hand smoke exposure: No Alcohol intake: never History of recent travel: No Data Anesthesia Cardiac Studies: No Data to Display
--- NOTE | 2022-07-08 10:23 | P.HP_ITS ---
Same Day Surgery H&P Indication for Procedure/HPI DATE OF PROCEDURE: July 08, 2022 CHIEF COMPLAINT/INDICATIONFOR SURGICAL PROCEDURE: Screening colonoscopy PREOP DIAGNOSIS: Screening colonoscopy PLANNED PROCEDURE: Operation Date: 07/08/22 09:30 Proposed Procedures p Colonoscopy 64018,Z12.11(Not Applicable) - Lino Ferraro MD This is a pleasant 51 years old female patient referred to my practice for screening colonoscopy. Patient denies any bleeding per rectum or history of colon cancer. ROS All systems have been reviewed negative except as for the above or per problem list. Medications/Allergies* Home Medications Medication Instructions Recorded Confirmed Type ergocalciferol (vitamin D2) 50 mcg 2,000 unit PO DAILY 11/26/19 07/08/22 History (2,000 unit) tablet atorvastatin 20 mg tablet 20 mg PO DAILY 07/07/22 07/08/22 History insulin regular hum U-500 conc See Rx Instructions .Route .COMPLEX 07/07/22 07/08/22 History (Humulin R U-500 (Conc) Insulin Kwikpen) sulfasalazine 500 mg tablet 1,000 g PO DAILY 07/07/22 07/08/22 History Allergies/Adverse Reactions Allergy/AdvReac Type Severity Reaction Status Date / Time venom-honey bee Allergy Severe ALGY-Redness Verified 07/07/22 10:16 of Skin codeine AdvReac Severe ADR-Vomitin Verified 07/07/22 10:16 g morphine AdvReac Severe ADR-Vomitin Verified 07/07/22 10:16 g propoxyphene AdvReac Severe ADR-Vomitin Verified 07/07/22 10:16 [From Rosette] g latex AdvReac Intermediate ALGY-Rash Verified 07/07/22 10:16 Current Medications: Generic Name Dose Route Start Last Admin Trade Name Freq PRN Reason Stop Dose Admin Sodium Chloride 1,000 mls @ 30 mls/hr 07/08/22 08:00 07/08/22 08:23 Sodium Chloride 0.9% IV 07/09/22 07:59 30 mls/hr .Q24H ALMITA Administration Pertinent History/Comorbid Conditions* Medical History (Updated 07/05/22 @ 16:08 by Reena Horne APRN) Chronic insomnia See subjective note below. Chronic pain See subjective note below. Chronic post-traumatic stress disorder (PTSD) Based on the information provided and the extensive previous chart history, Lizy meets the diagnostic criteria for Post-traumatic stress disorder in that she reported directly experienced traumatic events with symptoms including: recurrent, involuntary, and intrusive distressing memories of the traumatic event(s); dissociative reactions) in which the individual feels or acts as if the traumatic event(s) were recurring; intense or prolonged psychological distress at exposure to internal or external cues that symbolize or resemble an aspect of the traumatic event(s);persistent avoidance of stimuli associated with the traumatic event(s), beginning after the traumatic event(s) occurred, as evidenced by avoidance of or efforts to avoid distressing memories, thoughts, or feelings about or closely associated with the traumatic event(s) and avoidance of or efforts to avoid external reminders that arouse distressing memories, thoughts, or feelings about or closely associated with the traumatic event; persistent and exaggerated negative beliefs or expectations about oneself, others, or the world; persistent negative emotional state; markedly diminished interest or partici pation in significant activities; persistent inability to experience positive emotions; irritable behavior and angry outbursts; problems with concentration; sleep disturbances. The duration of the disturbance is more than one month. The disturbance causes clinically significant distress or impairment in social, occupational, or other important areas of functioning. Essential hypertension FH: total knee replacement left Generalized anxiety disorder High risk medication use HLA B27 (HLA B27 positive) Inflammatory arthritis Major depressive disorder, recurrent, in partial remission Major depressive disorder, recurrent, moderate Psychiatric care Seronegative spondyloarthropathy Uncontrolled type 2 diabetes mellitus Surgical History (Updated 10/09/20 @ 12:36 by Shalonda Jennings MD) History of appendectomy History of hysterectomy for benign disease History of left knee replacement History of tonsillectomy Family History (Updated 10/08/20 @ 13:23 by Jose Antonio Black LPN) Father, in his 50's Diabetes Mother Hyperlipidemia Father Psychiatric illness Mother Myocardial infarction Father Family history of premature coronary artery disease Father Hypertension Mother Brother Thyroid disease Mother Denies family history of Rheumatoid arthritis Lupus Social History Smoking and tobacco status: never smoked Second hand smoke exposure: No Alcohol intake: never History of recent travel: No Pertinent Exam Findings alert, oriented x 3, clear to auscultation bilaterally, regular rate & rhythm and procedure specific exam findings (Abdominal examination nontender nondistended soft) Recommendations Surgery/Procedure today (Screening colonoscopy) Other Plans: Plan of care; After thorough history and physical examination and reviewing the chart, plan to perform screening colonoscopy. I discussed with the patient in details the risks,benefits,alternatives and indications.The risk of aspiration, bleeding, soft tissue injury, perforation of the colon and other potential concomitant complications were explained to the patient in details,also the potential need for Laproscoy/Laparotomy to repair any related complications including but not limited to colectomy and or Closotomy.The patient understood this well and did agree to proceed. Rationale was carefully and clearly discussed with the patient.Appropriate informed consent have been reviewed and signed All questions have been answered and all concerns have been addressed to patient's satisfaction. Verbal and written Instructions were given to the patient for colonoscopy prep Coding Level of Care Code Acute Smoking Tobacco Cutter Operator for Leanna Lester
[2022-07-08 10:55] VITALS: BP 134/86; PULSE 81; RESP 12; TEMP 36.3; O2SAT 99
[2022-07-08 11:11] VITALS: BP 149/94; PULSE 82; RESP 16; O2SAT 98
--- NOTE | 2022-07-08 14:41 | ANE.PACU2 ---
Inpatient post-anesthesia follow up: Airway intact: Yes Vital signs: Temperature 97.4 F Pulse Rate 82 Respiratory Rate 16 Blood Pressure 149/94 Pulse Oximetry 98 Oxygen Delivery Me thod Room Air Oxygen Flow Rate 4 Fraction of Inspir ed Oxygen Hydration adequate: Yes Nausea and vomiting: No Pain level: 1 Mental status: Baseline
== END 2022-07-08 11:30 | disposition home or self-care (01) ==
PROVIDERS: PCP Registered Nurse; Visit Provider Surgery
PROC: 0DJD8ZZ Inspection of Lower Intestinal Tract, Via Natural or Artificial Opening Endoscopic (ICD-10-PCS; CPT 45378; principal; 2022-07-08 09:30)
DX: Z12.11 Encounter for screening for malignant neoplasm of colon (principal); I10 Essential (primary) hypertension; E11.9 Type 2 diabetes mellitus without complications; K21.9 Gastro-esophageal reflux disease without esophagitis; E78.5 Hyperlipidemia, unspecified; E66.9 Obesity, unspecified; Z68.39 Body mass index [BMI] 39.0-39.9, adult; Z79.4 Long term (current) use of insulin
CPT/HCPCS: G0121; J2704; J3490; J7030

== ENCOUNTER 2022-12-28 10:21 | Outpatient (CLI) | payer MEDICARE, MEDICAID, SELFPAY ==
--- NOTE | 2022-12-28 10:51 | ECG_ITS ---
[facility] Test Date: 2022-12-28 Pat Name: Lizy Evans Department: Room: Gender: Female Technical Information Specialist: : 1970 Requested By: Joellen Hill Order Number: [id number] Herson MD: CHACORTA DICKENS Measurements Intervals [place] Rate: 109 P: -79 ME: 179 QRS: 80 QRSD: 79 T: 257 QT: 322 QTc: 435 Interpretive Statements ECTOPIC ATRIAL TACHYCARDIA POSSIBLE ANTERIOR MYOCARDIAL INFARCTION , OF INDETERMINATE AGE [30 ms Q WAVE IN V3/V4, OR R < 0.2 mV IN V4] MODERATE T-WAVE ABNORMALITY, CONSIDER INFERIOR ISCHEMIA [-0.1+ mV T-WAVE IN II/aVF] No previous ECG available for comparison Electronically Signed On 12-28-2022 17:42:02 CDT by CHACORTA DICKENS [email or web address]
== END 2022-12-28 10:22 | disposition home or self-care (01) ==
LOC: RT 10:26
PROVIDERS: PCP Registered Nurse; Visit Provider Nurse Practitioner Psychiatric/Mental Health
DX: R00.0 Tachycardia, unspecified (principal)
CPT/HCPCS: 93005

== ENCOUNTER 2023-01-30 14:25 | Inpatient (IN) | payer MEDICARE, MEDICAID, SELFPAY ==
[2023-01-30] VITALS (8 sets, daily range): BP systolic 140–193; BP diastolic 79–112; PULSE 90–110; RESP 14–17; TEMP 36.5; O2SAT 99–100; BMI 30.9
--- NOTE | 2023-01-30 15:54 | ED_ITS ---
HPI - Back Pain/Injury General: Chief Complaint: Back Pain/Injury Stated Complaint: sob,dizzy, low back pain Time Seen by Provider: 01/30/23 15:43 History of Present Illness: Patient presents to the ER with complaints of low back pain that radiate up her back and down her back. Patient says she has also had nausea and vomiting and this is worse when the pain flares up. Patient says she has had a fever 1 time over the last couple days. Patient also reports headache dizziness just overall not feeling well. Patient is an insulin requiring diabetic MD elicited complaint: back pain Pertinent past history: prior back pain Onset (ago): day(s) (Several days) Timing: constant Severity: moderate Similar Symptoms Previously: Yes Quality: burning and aching Location: lumbar spine Radiation: left upper leg Exacerbating factors: movement Relieving factors: movement Associated symptoms: Reports chills, fever(s), nausea and vomiting; Deny dysuria Work related injury: No Review of Systems General: Reports: 10 or more systems reviewed and unremarkable except in HPI and below Const: Reports: fever(s), chills and body aches Eyes: Denies: change in vision or photophobia ENMT: Denies: throat pain or odynophagia Card: Denies: chest pain, palpitations or irregular heart rhythm Resp: Denies: dyspnea, productive cough or non-productive cough GI: Reports: nausea and vomiting : Denies: flank pain, difficulty voiding or dysuria Musc: Reports: back pain; Denies: neck pain Skin/Breast: Denies: rash or pruritus Neuro: Denies: headache(s), numbness in extremities or weakness in extremities PFSH ED PFSH: Medical History Bereavement Chronic insomnia See subjective note below. Chronic pain See subjective note below. Chronic post-traumatic stress disorder (PTSD) Essential hypertension FH: total knee replacement left Generalized anxiety disorder High risk medication use HLA B27 (HLA B27 positive) Inflammatory arthritis Major depressive disorder, recurrent, in partial remission Major depressive disorder, recurrent, moderate Psychiatric care Seronegative spondyloarthropathy Uncontrolled type 2 diabetes mellitus Surgical History History of appendectomy History of hysterectomy for benign disease History of left knee replacement History of tonsillectomy Family History Mother Hypertension Diabetes Psychiatric illness Thyroid disease Father , in his 50's Family history of premature coronary artery disease Hyperlipidemia Myocardial infarction Brother Hypertension Sister No problems noted. Denies family history of Rheumatoid arthritis Lupus Social History Smoking and tobacco status: never smoked Second hand smoke exposure: No Alcohol intake: never Physical Exam Const: COMMON NORMALS: no acute distress, average body habitus, patient oriented x3, no limitations, healthy appearing, alert and well nourished HENMT: COMMON NORMALS: normocephalic, atraumatic, hearing grossly normal bilaterally, external ears normal, Normal external nose present and moist oral mucous membranes HEAD & SCALP: normocephalic and atraumatic NOSE: Normal external nose present EXTERNAL EAR: Yes external ears normal Eye: COMMON NORMALS: Equal, round and reactive pupils present, EOMs intact bilaterally, conjunctivae normal and no scleral icterus CONJUNCTIVA: Yes conjunctivae normal PUPIL: Yes Equal, round and reactive pupils present Neck/C-Spine: COMMON NORMALS: full ROM, no lymphadenopathy, supple, no meningeal signs, no JVD and Thyroid normal THYROID: Thyroid normal Chest: COMMONS NORMALS: normal inspection of the chest and normal palpation of entire chest wall Resp: COMMON NORMALS: normal respiratory effort, No retractions, No use of accessory muscles and clear to auscultation bilaterally AUSCULTATION: clear to auscultation bilaterally Cardio: COMMON NORMALS: no JVD GI: COMMON NORMALS: Normal to inspection, nondistended, normoactive bowel sounds present, Soft to palpation, non-tender, No hepatosplenomegaly present and no masses PALPATION: Yes Soft to palpation and Yes No hepatosplenomegaly present : COMMON NORMALS: Yes no CVA tenderness BLADDER/KIDNEY EXAM: Yes no CVA tenderness Back/Pelvis: COMMON NORMALS: no CVA tenderness Neuro: COMMON NORMALS: patient oriented x3 SENSORIUM/ORIENTATION: Yes alert MENINGEAL SIGNS: Yes no meningeal signs Course Vital Signs: Vital signs: Vital Signs Temperature 97.7 F 01/30/23 14:36 Pulse Rate 93 01/30/23 19:19 Respiratory Rate 14 01/30/23 15:53 Blood Pressure 168/89 01/30/23 19:19 Pulse Oximetry 100 01/30/23 19:19 Oxygen Delivery Me thod Room Air 01/30/23 19:19 MDM - Back Pain/Injury Medical Decision Making Patient presents to the ER with multiple complaints but does states she has back pain. And does not feel good all over. Physical exam was performed as well as lab work and imaging. Lab work showed an elevated white count at 17, creatinine at 2.54 normally runs between 0.6 and 1.3, urine was remarkable for urinary tract infection with hematuria. CT scan of the abdomen pelvis without contrast was obtained which showed mild to moderate right hydronephrosis and hydroureter with perinephric edema as well as left kidney perinephric edema. Dr. Torres was consulted for admission and IV antibiotics which she agreed with. Dr. Mclaughlin was consulted and notified by myself. Differential Diagnosis Likely pyelonephritis; Unlikely lumbar radiculopathy, sciatica or strain of lumbar region Labs 01/30/23 15:50 01/30/23 15:50 Radiology Impressions Abdomen/Pelvis CT 01/30/23 17:35 IMPRESSION: 1. Hyhp-hp-sclbrmxa right hydronephrosis and hydroureter with perinephric edema, please correlate for pyelonephritis. Negative for obstructing lesion seen, findings may reflect sequelae of a recently passed calculus and/or underlying infection. 2. Several punctate calcifications in the pelvis felt to likely reflect phleboliths. 3. Left kidney perinephric edema may reflect underlying infection, renal insufficiency is also consideration. 4. Constipation. 5. Coronary artery atherosclerotic calcifications. 6. Cholelithiasis. Laboratory Results WBC 17.9 10^3/uL (4.0-10.0) H 01/30/23 15:50 RBC 4.09 10^6/uL (4.1-5.3) L 01/30/23 15:50 Hgb 10.1 g/dL (11.5-15.3) L 01/30/23 15:50 Hct 32.0 % (37.0-47.0) L 01/30/23 15:50 MCV 78.2 fl (81-99) L 01/30/23 15:50 MCH 24.7 pg (28.0-34.0) L 01/30/23 15:50 MCHC 31.6 g/dL (30.0-36.0) 01/30/23 15:50 RDW 13.7 % (12.1-15.1) 01/30/23 15:50 Plt Count 666 10^3/cmm (130-400) H 01/30/23 15:50 MPV 9.4 fL (7.4-10.4) 01/30/23 15:50 Neut % (Auto) 81.9 % 01/30/23 15:50 Lymph % (Auto) 10.2 % 01/30/23 15:50 [place] % (Auto) 4.4 % 01/30/23 15:50 Eos % (Auto) 0.4 % 01/30/23 15:50 Baso % (Auto) 0.4 % 01/30/23 15:50 Neut # (Auto) 14.69 10^3/uL (1.8-7.7) H 01/30/23 15:50 Lymph # (Auto) 1.8 10^3/uL (0.8-4.8) 01/30/23 15:50 [place] # (Auto) 0.8 10^3/uL (0.2-0.9) 01/30/23 15:50 Eos # (Auto) 0.1 10^3/uL (0.0-0.8) 01/30/23 15:50 Baso # (Auto) 0.1 10^3/uL (0.0-0.1) 01/30/23 15:50 Nucleated RBC % (auto) 0 % 01/30/23 15:50 Nucleated RBCs # 0.0 /100WBC 01/30/23 15:50 Sodium 125 mmol/L (136-145) L 01/30/23 15:50 Potassium 3.9 mmol/L (3.5-5.1) 01/30/23 15:50 Chloride 85 mmol/L (98-107) L 01/30/23 15:50 Carbon Dioxide 17 mmol/L (22-29) L 01/30/23 15:50 Anion Gap 26.9 (5-19) H 01/30/23 15:50 BUN 48 mg/dL (6-20) H 01/30/23 15:50 Creatinine 2.5 mg/dL (0.5-0.9) H 01/30/23 15:50 GFR Calculation 20.2 mL/min (90-130) L 01/30/23 15:50 Glucose 460 mg/dL (65-115) H 01/30/23 15:50 Calculated Osmolality 293 mOsm/kg (285-295) 01/30/23 15:50 Lactic Acid 0.9 mmol/L (0.5-2.2) 01/30/23 17:46 Calcium 8.9 mg/dL (8.5-10.5) 01/30/23 15:50 Magnesium 2.0 mg/dL (1.7-2.3) 01/30/23 15:50 Total Bilirubin 0.4 mg/dL (0.15-1.2) 01/30/23 15:50 AST 10 U/L (0-32) 01/30/23 15:50 ALT 9 U/L (0-33) 01/30/23 15:50 Alkaline Phosphatase 96 U/L (35-105) 01/30/23 15:50 Total Protein 8.5 g/dL (6.6-8.7) 01/30/23 15:50 Albumin 3.2 g/dL (3.5-5.2) L 01/30/23 15:50 Globulin 5.3 g/dL (1.3-4.6) H 01/30/23 15:50 Urine Color Straw (Yellow) 01/30/23 15:50 Urine Appearance Cloudy (CLEAR) A 01/30/23 15:50 Urine pH 5 (5-7) 01/30/23 15:50 Ur Specific [place] 1.015 (1.005-1.030) 01/30/23 15:50 Urine Protein 1+ (Negative) H 01/30/23 15:50 Urine Glucose (UA) 4+ (Normal) H 01/30/23 15:50 Urine Ketones 1+ (Negative) H 01/30/23 15:50 Urine Blood 3+ (Negative) H 01/30/23 15:50 Urine Nitrate Negative (Negative) 01/30/23 15:50 Urine Bilirubin Neg (Negative) 01/30/23 15:50 Urine Urobilinogen Norm mg/dL (Negative) 01/30/23 15:50 Ur Leukocyte Esterase 2+ (Negative) H 01/30/23 15:50 Urine RBC 10-15 /hpf (0-2) H 01/30/23 15:50 Urine WBC >100 /hpf (0-5) H 01/30/23 15:50 Ur Squamous Epith Cells 0-4 /hpf (0-5) H 01/30/23 15:50 Amorphous Sediment Not Reportable 01/30/23 15:50 Urine Bacteria 2+ /hpf (NONE) H 01/30/23 15:50 Discharge Plan Discharge Patient Disposition: Admitted As Inpatient Clinical Impression: Pyelonephritis, Acute renal insufficiency, Hydronephrosis Condition: Stable Prescriptions: No Action ergocalciferol (vitamin D2) 2,000 unit tablet 2,000 unit PO DAILY (DME) lancets [BD Ultra Fine Lancets] 33 gauge misc See Rx Instructions .ROUTE .MEDSUPPLY Qty: 100 3RF Rx Instructions: two times daily amlodipine 10 mg tablet 10 mg PO DAILY Qty: 90 0RF diclofenac sodium 75 mg tablet,delayed release (DR/EC) 75 mg PO BID PRN (Reason: pain, moderate-severe ) Qty: 30 1RF Cosentyx (2 Syringes) 150 mg/mL syringe 300 mg SUBCUT .Q4 weeks Qty: 2 3RF (DME) FreeStyle [place] 2 Sensor Kit See Rx Instructions .Route Qty: 6 3RF Rx Instructions: Change every 14 days. Jardiance 25 mg tablet 25 mg PO QAM Qty: 90 3RF Janumet XR 100-1,000 mg tablet, ER multiphase 24 hr 1 tab PO DAILY Qty: 90 3RF duloxetine [Cymbalta] 30 mg capsule,delayed release(DR/EC) 30 mg PO DAILY Qty: 90 0RF Rx Instructions: take one capsule by mouth every day with the 60 mg duloxetine [Cymbalta] 60 mg capsule,delayed release(DR/EC) 60 mg PO DAILY Qty: 90 0RF Rx Instructions: take one capsule by mouth every day with the 30 mg suvorexant 10 mg tablet 10 mg PO .q hs Qty: 90 0RF Rx Instructions: Take one tablet daily at bedtime; discontinue the 5 mg dose losartan-hydrochlorothiazide 100-12.5 mg tablet 1 tab PO DAILY Qty: 30 0RF (DME) FreeStyle [place] 2 [place] Misc See Rx Instructions .Route Qty: 1 0RF Rx Instructions: As directed mebendazole 100 mg tablet,chewable 100 mg PO ONCE Qty: 2 0RF Rx Instructions: Take 1 tab today; repeat in 14 days. Treat everyone in the home at the same t matt. Humulin R U-500 (Conc) Kwikpen 500 unit/mL (3 mL) insulin pen See Rx Instructions .ROUTE .COMPLEX Qty: 48 1RF Dose Instruction: INJECT 40 UNITS SUBCUTANEOUSLY WITH BREAKFAST, 100 UNITS WITH LUNCH, & 100 UNITS WITH SUPPER (BULK) Rx Instructions: INJECT 40 UNITS SUBCUTANEOUSLY WITH BREAKFAST, 100 UNITS WITH LUNCH, & 100 UNITS WITH SUPPER (BULK) atorvastatin 20 mg tablet 20 mg PO DAILY Rx Instructions: Take 1 tablet by mouth once daily sulfasalazine 500 mg tablet 1,000 g PO DAILY Rx Instructions: TAKE 2 TABLETS BY MOUTH TWICE DAILY. TAKE WITH FOOD Referrals: Joellen Hill FNP [Primary Care Provider] - Coding Level of Care Code ED Load Dropper for Leanna Lester
[2023-01-30 16:04] LABS: Basophils # 0.1 10^3/uL (0.0-0.1); Basophils % 0.4 %; Eosinophils # 0.1 10^3/uL (0.0-0.8); Eosinophils % 0.4 %; Hemoglobin 10.1 g/dL (11.5-15.3); Lymphocytes # 1.8 10^3/uL (0.8-4.8); Lymphocytes % 10.2 %; Mean Corpuscular HGB Conc 31.6 g/dL (30.0-36.0); Mean Corpuscular Hemoglobin 24.7 pg (28.0-34.0); Mean Corpuscular Volume 78.2 fl (81-99); Mean Platelet Volume 9.4 fL (7.4-10.4); Monocytes # 0.8 10^3/uL (0.2-0.9); Monocytes % 4.4 %; Neutrophils # 14.69 10^3/uL (1.8-7.7); Neutrophils % 81.9 %; Nucleated Red Blood Cells % 0 %; Platelet Count 666 10^3/cmm (130-400); Red Blood Count 4.09 10^6/uL (4.1-5.3); Red Cell Distribution Width 13.7 % (12.1-15.1); White Blood Count 17.9 10^3/uL (4.0-10.0)
[2023-01-30] MEDS: sodium chloride 0.9% 1,000 ML 999 ML IV ×2 (16:09→18:01)
[2023-01-30] MEDS: ondansetron 2 mg/ML SDV 2 mL 4 MG IVP ×2 (16:10→23:54)
[2023-01-30] MEDS: ketorolac 30 mg/mL INJ IVP (16:10)
[2023-01-30 16:27] LABS: Urine Appearance Cloudy (CLEAR); Urine Color Straw (Yellow)
[2023-01-30 16:28] LABS: Add Urine Microscopic? YES; Bilirubin Urine Neg (Negative); Blood Urine 3+ (Negative); Glucose Urine UA 4+ (Normal); Ketones Urine 1+ (Negative); Leukocyte Esterase Urine 2+ (Negative); Nitrate Urine Negative (Negative); Protein Urine 1+ (Negative); Specific Gravity, Urine 1.015 (1.005-1.030); Urobilinogen Urine Norm (Negative); pH Urine 5 (5-7)
[2023-01-30 16:29] LABS: Add Urine Culture? Yes; Bacteria Urine 2+ /hpf; Squamous Epithelial Cell Urine 0-4 /hpf (0-5); WBC Urine >100 /hpf (0-5)
[2023-01-30 16:36] LABS: Alanine Aminotransferase 9 U/L (0-33); Albumin Level 3.2 g/dL (3.5-5.2); Alkaline Phosphatase 96 U/L (35-105); Aspartate Amino Transferase 10 U/L (0-32); Blood Urea Nitrogen 48 mg/dL (6-20); Calcium 8.9 mg/dL (8.5-10.5); Carbon Dioxide 17 mmol/L (22-29); Globulin 5.3 g/dL (1.3-4.6); Glomerular Filtration Rate 20.2 mL/min (90-130); Glucose 460 mg/dL (65-115); Potassium 3.9 mmol/L (3.5-5.1); Total Bilirubin 0.4 mg/dL (0.15-1.2); Total Protein 8.5 g/dL (6.6-8.7)
[2023-01-30 17:17] LABS: Osmolality Calculated 293 mOsm/kg (285-295); Sodium 125 mmol/L (136-145)
[2023-01-30 17:18] LABS: Anion Gap 26.9 (5-19); Chloride 85 mmol/L (98-107)
--- NOTE | 2023-01-30 17:35 | CTR_ITS ---
PROCEDURE INFORMATION: Exam: CT Abdomen And Pelvis Without Contrast Exam date and time: 01/30/2023 5:48 PM Age: 52 years old Clinical indication: Other: Hematuria; Prior surgery; Surgery date: 6+ months; Surgery type: Hysterectomy, appendectomy; Patient HX: Luq pain; Additional info: Hematuria, leukocytosis, TECHNIQUE: Imaging protocol: Computed tomography of the abdomen and pelvis without contrast. Radiation optimization: All CT scans at this facility use at least one of these dose optimization techniques: automated exposure control; mA and/or kV adjustment per patient size (includes targeted exams where dose is matched to clinical indication); or iterative reconstruction. REPORTING DATA: Count of CT and Cardiac NM exams in prior 12 months: This patient has received 0 known CTs and 0 known cardiac nuclear medicine studies in the 12 months prior to the current study. COMPARISON: CR XR pelvis 1-2V* [id number] 02/28/2019 2:01 PM RADIATION DOSE METRICS: Total DLP (mGy-cm): 667.13 FINDINGS: Coronary arteries: Coronary artery atherosclerotic calcifications. Liver: Normal. No mass. Gallbladder and bile ducts: Cholelithiasis. Pancreas: Normal. No ductal dilation. Spleen: Normal. No splenomegaly. Adrenal glands: Normal. No mass. Kidneys and ureters: Pxvi-vy-afmgjxbp right hydronephrosis and hydroureter with perinephric edema, please correlate for pyelonephritis. Negative for obstructing lesion seen, findings may reflect sequelae of a recently passed calculus and/or underlying infection. Left kidney perinephric edema may reflect underlying infection, renal insufficiency is also consideration. Stomach and bowel: Constipation. Appendix: No evidence of appendicitis. Intraperitoneal space: Unremarkable. No free air. No significant fluid collection. Vasculature: Several punctate calcifications in the pelvis felt to likely reflect phleboliths. Lymph nodes: Unremarkable. No enlarged lymph nodes. Urinary bladder: Unremarkable as visualized. Reproductive: Unremarkable as visualized. Bones/joints: Unremarkable. No acute fracture. Soft tissues: Unremarkable. CT/CT abdomen pelvis wo con [id number] IMPRESSION: 1. Grfs-ro-pftkpoqq right hydronephrosis and hydroureter with perinephric edema, please correlate for pyelonephritis. Negative for obstructing lesion seen, findings may reflect sequelae of a recently passed calculus and/or underlying infection. 2. Several punctate calcifications in the pelvis felt to likely reflect phleboliths. 3. Left kidney perinephric edema may reflect underlying infection, renal insufficiency is also consideration. 4. Constipation. 5. Coronary artery atherosclerotic calcifications. 6. Cholelithiasis.
[2023-01-30] MEDS: piperacillin-tazobactam 3.375 GM in sodium chloride 0.9% (plus) 50 ML IV ×2 (18:01→23:56)
[2023-01-30 18:13] LABS: Lactic Sepsis W/Reflex 0.9 mmol/L (0.5-2.2)
--- NOTE | 2023-01-30 20:10 | PM.HP ---
Providers/Chief Complaint Primary Care Provider: SEGUN Mulligan Chief Complaint: sob,dizzy, low back pain History of Present Illness Lizy Evans is a 52 year old female with past medical history of chronic pain, PTSD, hypertension, generalized anxiety disorder, depression, uncontrolled type 2 diabetes mellitus with history of DKA presented to the hospital today for right-sided flank pain that she has been having for the last 2 weeks. She says it has progressed to the point that he started vomiting due to the pain. She says she has been feeling cold and having chills and today just does not have the energy to get up or do anything. He stated that she has no symptoms of dysuria, difficulty urinating at all. She says her hemoglobin A1c is 7.0. She sees Dr. Jennings for endocrinology. She says she no longer takes amlodipine, lisinopril, hydrochlorothiazide. She is only on duloxetine, Jardiance, atorvastatin, Janumet at this time. Denies chest pain, shortness of breath, nausea, vomiting diarrhea at this time. Does endorse some flank pain on the right side. ED course: BP 168/89, respiratory 14, pulse 93, temperature 97.7, saturating 100% on room air. WBC 17, creatinine 2.54, baseline 0.6-1.3. Urinalysis abnormal suggesting UTI with hematuria. CT abdomen pelvis obtained which showed mild to moderate right hydronephrosis and hydroureter with perinephric edema as well as left kidney perinephric edema. Sodium 125, lactic acid 0.9. Medications/Allergies Home Medications Medication Instructions Recorded Confirmed Last Taken Type ergocalciferol (vitamin D2) 50 mcg 2,000 unit PO DAILY 11/26/19 12/28/22 07/07/22 History (2,000 unit) tablet lancets 33 gauge (BD Ultra Fine #100 ea 12/05/19 12/28/22 Unknown Rx Lancets) amlodipine 10 mg tablet 10 mg PO DAILY #90 tabs 09/01/20 12/28/22 07/07/22 Rx losartan 100 1 tab PO DAILY #30 tabs 04/21/21 12/28/22 07/07/22 Rx mg-hydrochlorothiazide 12.5 mg tablet diclofenac sodium 75 mg 75 mg PO BID PRN pain, 04/22/21 12/28/22 07/06/22 Rx tablet,delayed release moderate-severe #30 tabs flash glucose scanning reader #1 ea 05/29/21 12/28/22 Unknown Rx (FreeStyle Pal[place] 2 [place]) empagliflozin 25 mg tablet 25 mg PO QAM #90 tabs 05/27/22 12/28/22 07/07/22 Rx (Jardiance) flash glucose sensor (FreeStyle #6 ea 05/27/22 12/28/22 Unknown Rx Palak 2 Sensor kit) sitagliptin phos 100 mg-metformin 1 tab PO DAILY #90 tabs 05/27/22 12/28/22 07/07/22 Rx ER 1,000 mg tablet,extend rel 24h mp (Janumet XR) secukinumab 150 mg/mL subcutaneous 300 mg (2 mL) SUBCUT .Q4 weeks #2 06/17/22 12/28/22 06/16/22 Rx syringe (Cosentyx 300 mg/2 mL Syringes () atorvastatin 20 mg tablet 20 mg PO DAILY 07/07/22 12/28/22 07/07/22 History sulfasalazine 500 mg tablet 1,000 g PO DAILY 07/07/22 12/28/22 07/07/22 History mebendazole 100 mg chewable tablet 100 mg PO ONCE enterobiasis #2 tabs 08/27/22 12/28/22 Unknown Rx insulin regular hum U-500 conc 500 See Rx Instructions .Route 12/09/22 12/28/22 Unknown Rx unit/mL(3 mL) subcut pen (Humulin .COMPLEX #48 mL R U-500 (Conc) Insulin Kwikpen) duloxetine 30 mg capsule,delayed 30 mg PO DAILY #90 caps 12/28/22 01/26/23 Unknown Rx release (Cymbalta) duloxetine 60 mg capsule,delayed 60 mg PO DAILY #90 caps 12/28/22 01/26/23 Unknown Rx release (Cymbalta) suvorexant 10 mg tablet 10 mg PO .q hs #90 tabs 12/28/22 01/26/23 Unknown Rx Allergies Allergy/AdvReac Type Severity Reaction Status Date / Time venom-honey bee Allergy Severe ALGY-Redness Verified 01/25/23 09:02 of Skin codeine AdvReac Severe ADR-Vomitin Verified 01/25/23 09:02 g morphine AdvReac Severe ADR-Vomitin Verified 01/25/23 09:02 g propoxyphene AdvReac Severe ADR-Vomitin Verified 01/25/23 09:02 [From Rosette] g latex AdvReac Intermediate ALGY-Rash Verified 01/25/23 09:02 PFSH Acute PFSH: Medical History Bereavement Chronic insomnia See subjective note below. Chronic pain See subjective note below. Chronic post-traumatic stress disorder (PTSD) Essential hypertension FH: total knee replacement left Generalized anxiety disorder High risk medication use HLA B27 (HLA B27 positive) Inflammatory arthritis Major depressive disorder, recurrent, in partial remission Major depressive disorder, recurrent, moderate Psychiatric care Seronegative spondyloarthropathy Uncontrolled type 2 diabetes mellitus Surgical History History of appendectomy History of hysterectomy for benign disease History of left knee replacement History of tonsillectomy Family History Mother Hypertension Diabetes Psychiatric illness Thyroid disease Father , in his 50's Family history of premature coronary artery disease Hyperlipidemia Myocardial infarction Brother Hypertension Sister No problems noted. Denies family history of Rheumatoid arthritis Lupus Social History Smoking and tobacco status: never smoked Second hand smoke exposure: No Alcohol intake: never Vitals/I&O/Wt Last Vital Signs Temp 97.7 F 01/30/23 14:36 Pulse 90 01/30/23 19:43 Resp 14 01/30/23 15:53 BP 163/94 01/30/23 19:43 Pulse Ox 100 01/30/23 19:43 O2 Del Method Room Air 01/30/23 19:43 Weight last 48 hrs Weight 81.647 kg Physical Exam Narrative: General: Alert oriented x3, patient seen laying in bed at this time appearing comfortable. HEENT: Normocephalic, atraumatic, EOMI, breathing comfortably Cardio: Regular rate rhythm, normal S1-S2 Respiratory: Clear to auscultation bilaterally no wheezes or rhonchi GI: Abdomen soft, mildly tender at right flank area, right CVA tenderness positive bowel sounds + Behavior: Appropriate and cooperative Extremities: No edema bilateral lower extremities. Data 04/16/23 15:50 01/30/23 20:30 A&P Assessment and plan (1) Pyelonephritis: (2) Acute renal insufficiency: (3) Hydronephrosis: Qualifiers: Hydronephrosis type: unspecified Qualified Code(s): N13.30 - Unspecified hydronephrosis (4) Hyperlipidemia: (5) Generalized anxiety disorder: (6) Major depressive disorder, recurrent, moderate: Plan #Acute right pyelonephritis #Right hydronephrosis, hydroureter #Uncontrolled diabetes mellitus #Anxiety, depression #Acute kidney injury - Dr. Mclaughlin consulted from ER. ? Place on Zosyn 3 times daily ? Obtain urine culture, blood cultures ? Continue IV fluid normal saline 125 cc/h ? High intensity insulin sliding scale ACHS ? Consistent carbohydrate diet ? Hold metformin, Jardiance, sitagliptin ? Continue duloxetine, atorvastatin. ? Patient medications need to be reconciled ? Tylenol for fever, Zofran for nausea ? Monitor renal function with IV fluid hydration. Check BMP daily. ? CHELLY present. Check Fena. -Continue fluid hydration ? Check hemoglobin A1c ?recheck bmp now before administering lispro - talked with rn, er doc. Reviewed cbc, bmp, lactic acid, ct abd results and discussed them with the patient. - Reviewed chart and endocrinology documentation Full code SCDs, heparin SQ twice daily for DVT prophylaxis Attestations Medical Necessity Statement*: > 2 midnight stay for mgmt of pyelonephritis Other Coding Information Focused coding review requested Diagnoses Pyelonephritis N12 Acute renal insufficiency N28.9 Hydronephrosis N13.30 Hydronephrosis type: unspecified Hyperlipidemia E78.5 Generalized anxiety disorder F41.1 Major depressive disorder, recurrent, moderate F33.1
[2023-01-30] MEDS: heparin 5,000 unit/mL INJ 1 mL 5000 UNIT SUBCUT (20:41)
[2023-01-30] MEDS: sodium chloride 0.9% 1,000 ML 125 ML IV (20:41)
[2023-01-30 21:13] LABS: Anion Gap 20.9 (5-19); Blood Urea Nitrogen 46 mg/dL (6-20); Calcium 8.3 mg/dL (8.5-10.5); Carbon Dioxide 19 mmol/L (22-29); Chloride 90 mmol/L (98-107); Glomerular Filtration Rate 22.3 mL/min (90-130); Glucose 369 mg/dL (65-115); Lactic Sepsis W/Reflex 0.9 mmol/L (0.5-2.2); Osmolality Calculated 289 mOsm/kg (285-295); Potassium 3.9 mmol/L (3.5-5.1); Sodium 126 mmol/L (136-145)
[2023-01-30 21:19] LABS: Procalcitonin 1.42 ng/mL (0-0.5)
[2023-01-30 21:35] LABS: Estmated Average Glucose 295; Hemoglobin A1C 11.9 % (4.0-6.0)
[2023-01-31] VITALS (7 sets, daily range): BP systolic 131–171; BP diastolic 74–92; PULSE 83–97; RESP 16–20; TEMP 36.6–37.4; O2SAT 98–100
[2023-01-31 00:14] LABS: Glucose Point of Care 363 mg/dL (70-110)
[2023-01-31] MEDS: insulin lispro 100 unit/1 mL SUBCUT ×5 (00:21→21:45)
[2023-01-31] MEDS: sodium chloride 0.9% 1,000 ML 125 ML IV ×3 (04:47→20:00)
--- NOTE | 2023-01-31 05:01 | P.CONIM_ITS ---
Providers/Reason For Consult Consulting Physician/Specialty*: Urology/Mclaughlin Reason for Consult*: Pyelonephritis/Hydronephrosis Requesting Physician: Dr. Torres Attending Physician: Kristine Torres MD Primary Care Provider: SEGUN Mulligan History of Present Illness History of Present Illness Lizy Evans is a 52 year old female admitted with diagnosis of pyelonephritis. Symptoms: fatique, malaise, transient fever. She did not feel that she had specifically worse flank pain but did state that she hurt all ove r . No complaints of UTI-type LUTS. She denies being a frequent flyer with UTIs. * Ct scan showed mild RIGHT hydronephrosis / hydroureter to distal ureter with no evidence of stone or lesion. Bladder somewhat distended. * WBC: 17+ * Cr: 2.3 * UA: Nitrite negative, >100 WBC, 2+ bacteria Complicated by diabetes. Does have a history of diabetic retinopathy but is unaware of any other type of nerve damage. Admitted and placed on IV antibiotics. I was consulted for evaluation of consideration of possible obstructive component. I Reviewed CT Scan. No other films for comparison. Agree with findings. The right collecting system is mildly dilated to near the UVJ. No stone. Differential: passed stone, lower urinary tract dysfunction with incomplete bladder emptying, chronic nonobstructive dilation, etc. Her physical exam does show some right-sided and left-sided CVA tenderness with right greater than sign left. I did review with her concerns related to potential obstructive pyelon ephritis. Suggested that in the presence of a clear-cut obstruction such as with a stone we would consider this an emergency and recommend stent placement JAYNE. Given the absence of a clear definitive obstructive process its not certain that she would benefit from a stent at this point Would recommend treatment with antibiotics first and gauge response. Clearly if she deteriorates would recommend emergency stenting I explained all of this in detail to her and she seemed comfortable with all of it. Review of Systems Const: Reports: fever(s), body aches, fatigue and malaise; Denies: chills Eyes: Denies: change in vision or yellow eyes ENMT: Denies: hoarseness Card: Denies: chest pain or palpitations Resp: Denies: dyspnea or wheezing GI: Reports: abdominal pain, nausea and vomiting; Denies: hematochezia : Reports: flank pain and other (She reports a history of pelvic floor relaxation); Denies: dysuria, urinary frequency or urinary urgency Musc: Reports: back pain; Denies: joint redness Skin/Breast: Denies: rash or new lesions Neuro: Denies: weakness in extremities, confusion, behavioral changes or Slurred speech present Psych: Denies: memory loss Endo: Denies: flushing Carlos/Lymph: Denies: easy bruising, easy bleeding or enlarged lymph nodes All/Imm: Denies: urticaria or acute wheezing Medications/Allergies Home Medications Medication Instructions Recorded Confirmed Last Taken Type ergocalciferol (vitamin D2) 50 mcg 2,000 unit PO DAILY 11/26/19 01/31/23 01/28/23 History (2,000 unit) tablet lancets 33 gauge (BD Ultra Fine #100 ea 12/05/19 01/31/23 Unknown Rx Lancets) flash glucose scanning reader #1 ea 05/29/21 01/31/23 Unknown Rx (FreeStyle Palak 2 [place]) empagliflozin 25 mg tablet 25 mg PO QAM #90 tabs 05/27/22 01/31/23 01/28/23 Rx (Jardiance) flash glucose sensor (FreeStyle #6 ea 05/27/22 01/31/23 Unknown Rx Palak 2 Sensor kit) sitagliptin phos 100 mg-metformin 1 tab PO DAILY #90 tabs 05/27/22 01/31/23 01/28/23 Rx ER 1,000 mg tablet,extend rel 24h mp (Janumet XR) atorvastatin 20 mg tablet 20 mg PO DAILY 07/07/22 01/31/23 01/28/23 History insulin regular hum U-500 conc 500 See Rx Instructions .Route 12/09/22 01/31/23 01/28/23 Rx unit/mL(3 mL) subcut pen (Humulin .COMPLEX #48 mL R U-500 (Conc) Insulin Kwikpen) duloxetine 30 mg capsule,delayed 30 mg PO DAILY #90 caps 12/28/22 01/31/23 01/28/23 Rx release (Cymbalta) duloxetine 60 mg capsule,delayed 60 mg PO DAILY #90 caps 12/28/22 01/31/23 01/28/23 Rx release (Cymbalta) suvorexant 10 mg tablet 10 mg PO .q hs #90 tabs 03/14/23 04/17/23 04/14/23 Rx amitriptyline 25 mg tablet 25 mg PO BEDTIME 01/31/23 01/31/23 01/30/23 History Allergies Allergy/AdvReac Type Severity Reaction Status Date / Time venom-honey bee Allergy Severe ALGY-Redness Verified 01/25/23 09:02 of Skin codeine AdvReac Severe ADR-Vomitin Verified 01/25/23 09:02 g morphine AdvReac Severe ADR-Vomitin Verified 01/25/23 09:02 g propoxyphene AdvReac Severe ADR-Vomitin Verified 01/25/23 09:02 [From Darvocet-N] g latex AdvReac Intermediate ALGY-Rash Verified 01/25/23 09:02 Current Medications Generic Name Dose Route Start Last Admin Trade Name Freq PRN Reason Stop Dose Admin Heparin Sodium (Porcine) 5,000 unit 01/30/23 20:15 01/30/23 20:41 Heparin 5,000 Unit/Ml Inj 1 Ml SUBCUT 5,000 unit Q12H ALMITA Administration Sodium Chloride 1,000 mls @ 125 mls/hr 01/30/23 20:15 01/31/23 04:47 Sodium Chloride 0.9% IV 125 mls/hr .Q8H ALMITA Administration Piperacillin Sod/Tazobactam 50 mls @ 12.5 mls/hr 01/31/23 00:00 01/31/23 04:22 Sod 3.375 gm/ Sodium Chloride IV Infused Q8H ALMITA Infusion Insulin Human Lispro 0 unit 01/30/23 23:42 01/31/23 00:21 Insulin Lispro 100 Unit/1 Ml SUBCUT 14 unit WM&BEDTIME ALMITA Administration Protocol Ondansetron HCl 4 mg 01/30/23 20:04 01/30/23 23:54 Ondansetron 2 Mg/Ml Sdv 2 Ml IVP 4 mg Q8H PRN Administration vomiting, or N/V if npo PFSH Acute PFSH: Medical History Bereavement Chronic insomnia See subjective note below. Chronic pain See subjective note below. Chronic post-traumatic stress disorder (PTSD) Essential hypertension FH: total knee replacement left Generalized anxiety disorder High risk medication use HLA B27 (HLA B27 positive) Inflammatory arthritis Major depressive disorder, recurrent, in partial remission Major depressive disorder, recurrent, moderate Psychiatric care Seronegative spondyloarthropathy Uncontrolled type 2 diabetes mellitus Surgical History History of appendectomy History of hysterectomy for benign disease History of left knee replacement History of tonsillectomy Family History Mother Hypertension Diabetes Psychiatric illness Thyroid disease Father , in his 50's Family history of premature coronary artery disease Hyperlipidemia Myocardial infarction Brother Hypertension Sister No problems noted. Denies family history of Rheumatoid arthritis Lupus Social History Smoking and tobacco status: never smoked Second hand smoke exposure: No Alcohol intake: never Vitals/I&O/Wt Last Vital Signs Temp 98.1 F 01/31/23 00:00 Pulse 92 01/31/23 00:00 Resp 20 H 01/31/23 00:00 BP 171/84 01/31/23 00:00 Pulse Ox 100 01/31/23 00:00 O2 Del Method Room Air 01/31/23 00:00 01/30/23 01/30/23 01/31/23 14:59 22:59 06:59 Intake Total 3100 / 3100 Balance 3100 / 3100 Weight last 48 hrs Weight 180 lb Physical Exam Const: COMMON NORMALS: alert and well nourished GENERAL APPEARANCE: well kempt and well developed ORIENTATION/CONSCIOUSNESS: not confused OTHER: She does appear uncomfortable but no distress HENMT: COMMON NORMALS: normocephalic HEAD & SCALP: normal to inspection and normocephalic Eye: COMMON NORMALS: conjunctivae normal and no scleral icterus CONJUNCTIVA: Yes conjunctivae normal Neck/C-Spine: GENERAL: Yes normal visual inspection Lymph: OTHER: No palpable groin lymphadenopathy. No lymphedema Chest: OTHER: Normal chest movements Resp: COMMON NORMALS: normal respiratory effort EFFORT & INSPECTION: Yes able to speak in complete sentences, No labored and No Actively coughing GI: OTHER: No abdominal masses. She is tender diffusely. Epigastric area more so than others. No bloating or distention : OTHER: Bladder nondistended. She does have bilateral flank tenderness right greater than sign left. Back/Pelvis: OTHER: CVA tenderness Extremity: COMMON NORMALS: no clubbing, cyanosis or edema Neuro: COMMON NORMALS: no focal motor deficits SENSORIUM/ORIENTATION: Yes alert Psych: COMMON NORMALS: mental status grossly normal APPEARANCE: Yes grossly normal and Yes well kempt ATTITUDE: Yes calm and Yes engaged Skin: COMMON NORMALS: no rashes or lesions noted and no jaundice GENERAL SKIN EXAM: no rashes or lesions noted Data 02/01/23 06:43 02/01/23 06:43 Micro: Microbiology 01/30/23 22:19 Blood Culture - Preliminary Blood SPECIMEN COLLECTED 01/30/23 22:15 Blood Culture - Preliminary Blood SPECIMEN COLLECTED A&P Assessment and plan (1) Pyelonephritis: Evidence of bilateral inflammatory changes (2) Hydronephrosis: Unclear if this is chronic or acute. No obvious stone or obstructing lesion. Not severe. Qualifiers: Hydronephrosis type: unspecified Qualified Code(s): N13.30 - Unspecified hydronephrosis (3) Acute renal insufficiency: Plan 1. Hold on stent for now but can certainly convert to that quickly if it looks like she is deteriorating clinically 2. Focus primarily on infection treatment with antibiotics 3. Will follow closely Consult Attestations Medical Necessity Statement: See attending Coding Level of Care Code Acute Code for [facility] Diagnoses Pyelonephritis N12 Hydronephrosis N13.30 Hydronephrosis type: unspecified Acute renal insufficiency N28.9
[2023-01-31 05:25] LABS: Basophils # 0.1 10^3/uL (0.0-0.1); Basophils % 0.4 %; Eosinophils # 0.2 10^3/uL (0.0-0.8); Eosinophils % 1.2 %; Hematocrit 28.4 % (37.0-47.0); Hemoglobin 9.2 g/dL (11.5-15.3); Lymphocytes # 1.7 10^3/uL (0.8-4.8); Lymphocytes % 10.4 %; Mean Corpuscular HGB Conc 32.4 g/dL (30.0-36.0); Mean Corpuscular Hemoglobin 25.5 pg (28.0-34.0); Mean Corpuscular Volume 78.7 fl (81-99); Mean Platelet Volume 9.4 fL (7.4-10.4); Monocytes # 0.8 10^3/uL (0.2-0.9); Monocytes % 4.8 %; Neutrophils # 13.13 10^3/uL (1.8-7.7); Neutrophils % 81.2 %; Nucleated Red Blood Cells % 0 %; Platelet Count 623 10^3/cmm (130-400); Red Blood Count 3.61 10^6/uL (4.1-5.3); Red Cell Distribution Width 13.6 % (12.1-15.1); White Blood Count 16.2 10^3/uL (4.0-10.0)
[2023-01-31 05:38] LABS: Anion Gap 19.5 (5-19); Blood Urea Nitrogen 43 mg/dL (6-20); Calcium 8.4 mg/dL (8.5-10.5); Carbon Dioxide 21 mmol/L (22-29); Chloride 96 mmol/L (98-107); Glomerular Filtration Rate 22.3 mL/min (90-130); Glucose 157 mg/dL (65-115); Osmolality Calculated 290 mOsm/kg (285-295); Potassium 3.5 mmol/L (3.5-5.1); Sodium 133 mmol/L (136-145)
[2023-01-31] MEDS: acetaminophen 325 mg Tablet 650 MG PO (05:52)
[2023-01-31 06:14] LABS: Glucose Point of Care 193 mg/dL (70-110)
[2023-01-31] MEDS: duloxetine 30 mg Capsule PO (08:21)
[2023-01-31] MEDS: duloxetine 60 mg Capsule PO (08:21)
[2023-01-31] MEDS: atorvastatin 40 mg Tablet 20 MG PO (08:21)
[2023-01-31] MEDS: piperacillin-tazobactam 3.375 GM in sodium chloride 0.9% (plus) 50 ML IV ×3 (08:22→23:57)
[2023-01-31] MEDS: heparin 5,000 unit/mL INJ 1 mL 5000 UNIT SUBCUT ×2 (08:22→19:59)
[2023-01-31 11:44] LABS: Glucose Point of Care 294 mg/dL (70-110)
--- NOTE | 2023-01-31 13:20 | PC.NURSE ---
01/31/2023 voided 300, per bladder scan 123 PVR.
--- NOTE | 2023-01-31 18:19 | P.PN_ITS ---
Subjective Subjective: No new complaints today. Continues to have leg discomfort over her entire abdomen. Less nauseous than before. Afebrile. White blood cell count is persisting at 16.2. Creatinine at 2.3. Urine output charted at 400 mL, bladder scans ongoing. Medications: Reviewed: Yes Vitals/I&O/Wt Last Vital Signs Temp 98.1 F 01/31/23 16:00 Pulse 83 01/31/23 16:00 Resp 16 01/31/23 16:00 BP 143/74 01/31/23 16:00 Pulse Ox 99 01/31/23 16:00 O2 Del Method Room Air 01/31/23 16:00 01/31/23 01/31/23 01/31/23 06:59 14:59 22:59 Intake Total 3100 / 3100 1690.833 / 1690.833 240 / 1930.833 Output Total 400 / 400 Balance 2700 / 2700 1690.833 / 1690.833 240 / 1930.833 Weight last 48 hrs Weight 81.647 kg Physical Exam Narrative: General: No acute distress, AO x3 HEENT: PERRLA, pupils bilaterally equal and reactive, pallors not present Chest: Normal vesicular breath sounds, no added sounds, equal good air entry bilaterally CVS: S1-S2 regular, no murmurs, no tachycardia, no gallops, no rubs Abdomen: Soft, nontender, no organomegaly, bowel sounds present Neuro: No focal deficits, no facial deformity, AO x3, power 5/5 in all limbs Data 01/31/23 04:42 01/31/23 04:42 Micro: Microbiology 01/30/23 15:50 Urine Culture - Preliminary Urine,Clean Catch Gram Negative Rods 01/30/23 22:19 Blood Culture - Preliminary Blood SPECIMEN COLLECTED 01/30/23 22:15 Blood Culture - Preliminary Blood SPECIMEN COLLECTED A&P Assessment and plan (1) Pyelonephritis: (2) Acute renal insufficiency: (3) Hydronephrosis: Qualifiers: Hydronephrosis type: unspecified Qualified Code(s): N13.30 - Unspecif ied hydronephrosis (4) Hyperlipidemia: (5) Generalized anxiety disorder: (6) Major depressive disorder, recurrent, moderate: Plan 52-year-old lady with subacute symptoms of abdominal pain, low-grade fever over the past 2 weeks, currently presenting with worsening abdominal pain nausea vomiting over the last 24 hours prior to admission. Found to have pyelo nephritis upon evaluation. #Acute right pyelonephritis #Right hydronephrosis, hydroureter Overall clinical concern for obstructive pyelonephritis. Urine culture showing gram-negative rods preliminarily. Currently on empiric treatment with piperacillin/tazobactam, await identification Blood culture currently negative to date. CT shows hydronephrosis, no danilo obstruction encountered. May be consistent with a passed stone. If creatinine, white blood cell count or clinical course fails to improve as expected with IV hydration and IV antibiotics, patient may need to go to the OR for cystoscopy and possible ureteric stent placement Appreciate urology recommendation. #Uncontrolled diabetes mellitus Hemoglobin A1c of 11.9. Patient managed outpatient with endocrinology. change medium dose insulin to high-dose insulin sliding scale. We will add Lantus based on 24-hour insulin requirement. #Anxiety, depression: Continue home medications #Acute kidney injury: Creatinine currently at 2.3. IV fluids normal saline currently at 125 cc an hour Monitor urine output and creatinine. CT findings as above Full code SCDs, heparin SQ twice daily for DVT prophylaxis Attestations Medical Necessity Statement*: iv fluids, iv abx, monitor kidney function and urine output Coding Level of Care Code Acute Code for Chg Fwd Moderate MDM includes number and complexity of problems actively addressed during encounter, amount and/or complexity of data reviewed/ordered and describ ed risk of complication, morbidity or mortality of management as documented Diagnoses Pyelonephritis N12 Acute renal insufficiency N28.9 Hydronephrosis N13.30 Hydronephrosis type: unspecified Hyperlipidemia E78.5 Generalized anxiety disorder F41.1 Major depressive disorder, recurrent, moderate F33.1
--- NOTE | 2023-01-31 18:35 | PC.NURSE ---
pt voided 300 out with 0 on bladder scan
--- NOTE | 2023-01-31 18:54 | PC.NURSE ---
pt voided at 400 output, with 85 on bladder scan.
--- NOTE | 2023-01-31 21:11 | PC.NURSE ---
Patient voided 400ml post void bladder scan 15ml.
[2023-01-31] MEDS: amitriptyline 25 mg Tablet PO (21:12)
--- NOTE | 2023-01-31 21:47 | PC.NURSE ---
Capillary Blood glucose at 2100 299, Accuchek not docking.
--- NOTE | 2023-01-31 23:30 | PC.NURSE ---
Patient voided 300ml, post void bladder scan is 269ml.
--- NOTE | 2023-02-01 02:39 | PC.NURSE ---
Patient voided 400ml, post void bladder scan 150ml
[2023-02-01] MEDS: sodium chloride 0.9% 1,000 ML 125 ML IV ×3 (03:20→20:57)
[2023-02-01] MEDS: ondansetron 2 mg/ML SDV 2 mL 4 MG IVP (04:18)
[2023-02-01 04:32] VITALS: BP 183/92; PULSE 97; RESP 17; TEMP 36.8; O2SAT 99
--- NOTE | 2023-02-01 04:46 | PC.NURSE ---
Patient voided 450 ml, post void bladder scan of 175ml.
[2023-02-01 07:14] LABS: Basophils # 0.1 10^3/uL (0.0-0.1); Basophils % 0.5 %; Eosinophils # 0.2 10^3/uL (0.0-0.8); Eosinophils % 1.3 %; Hematocrit 28.4 % (37.0-47.0); Hemoglobin 8.8 g/dL (11.5-15.3); Lymphocytes # 2.2 10^3/uL (0.8-4.8); Lymphocytes % 18.6 %; Mean Corpuscular Hemoglobin 24.6 pg (28.0-34.0); Mean Corpuscular Volume 79.3 fl (81-99); Mean Platelet Volume 9.3 fL (7.4-10.4); Monocytes # 0.7 10^3/uL (0.2-0.9); Monocytes % 6.2 %; Neutrophils # 8.53 10^3/uL (1.8-7.7); Neutrophils % 71.7 %; Nucleated Red Blood Cells % 0 %; Platelet Count 653 10^3/cmm (130-400); Red Blood Count 3.58 10^6/uL (4.1-5.3); White Blood Count 11.9 10^3/uL (4.0-10.0)
[2023-02-01 07:29] LABS: Alanine Aminotransferase 10 U/L (0-33); Albumin Level 2.6 g/dL (3.5-5.2); Alkaline Phosphatase 93 U/L (35-105); Anion Gap 18.5 (5-19); Aspartate Amino Transferase 12 U/L (0-32); Blood Urea Nitrogen 33 mg/dL (6-20); Calcium 8.3 mg/dL (8.5-10.5); Carbon Dioxide 17 mmol/L (22-29); Chloride 104 mmol/L (98-107); Globulin 4.3 g/dL (1.3-4.6); Glomerular Filtration Rate 27.8 mL/min (90-130); Glucose 203 mg/dL (65-115); Osmolality Calculated 293 mOsm/kg (285-295); Potassium 4.5 mmol/L (3.5-5.1); Sodium 135 mmol/L (136-145); Total Bilirubin 0.3 mg/dL (0.15-1.2); Total Protein 6.9 g/dL (6.6-8.7)
[2023-02-01 08:00] VITALS: BP 181/88; PULSE 97; RESP 15; TEMP 36.9; O2SAT 99
[2023-02-01] MEDS: heparin 5,000 unit/mL INJ 1 mL 5000 UNIT SUBCUT ×2 (09:42→20:54)
[2023-02-01] MEDS: TRAMadol 50 mg Tablet PO ×2 (09:42→20:55)
[2023-02-01] MEDS: piperacillin-tazobactam 3.375 GM in sodium chloride 0.9% (plus) 50 ML IV ×3 (09:42→23:55)
[2023-02-01] MEDS: duloxetine 30 mg Capsule PO (09:43)
[2023-02-01] MEDS: insulin lispro 100 unit/1 mL SUBCUT ×3 (09:43→22:53)
[2023-02-01] MEDS: atorvastatin 40 mg Tablet 20 MG PO (09:43)
[2023-02-01] MEDS: duloxetine 60 mg Capsule PO (09:43)
[2023-02-01 12:00] VITALS: BP 148/89; PULSE 105; RESP 16; TEMP 36.6; O2SAT 97
--- NOTE | 2023-02-01 14:01 | P.PN_ITS ---
Subjective Subjective: Clinically improving today. Leukocytosis down to 11.9. She is afebrile. Has headache after taking tramadol, however pain medication choices are limited given her CHELLY and allergies to opiates. Creatinine improving to 1.9. Urine output of over 2 L. Blood culture reported positive for gram-negative rods today. Medications: Reviewed: Yes Vitals/I&O/Wt Last Vital Signs Temp 98 F 02/01/23 12:00 Pulse 105 H 02/01/23 12:00 Resp 16 02/01/23 12:00 BP 148/89 02/01/23 12:00 Pulse Ox 97 02/01/23 12:00 O2 Del Method Room Air 02/01/23 04:32 01/31/23 02/01/23 02/01/23 22:59 06:59 14:59 Intake Total 1271.25 / 2962.083 966.667 / 3928.750 1480 / 1480 Output Total 1000 / 1000 1150 / 2150 Balance 271.25 / 1962.083 -183.333 / 6548.009 5873 / 1480 Weight last 48 hrs Weight 81.647 kg Physical Exam Narrative: General: No acute distress, AO x3 HEENT: PERRLA, pupils bilaterally equal and reactive, pallors not present Chest: Normal vesicular breath sounds, no added sounds, equal good air entry bilaterally CVS: S1-S2 regular, no murmurs, no tachycardia, no gallops, no rubs Abdomen: Soft, nontender, no organomegaly, bowel sounds present Neuro: No focal deficits, no facial deformity, AO x3, power 5/5 in all limbs Data 02/01/23 06:43 02/01/23 06:43 Micro: Microbiology 01/30/23 22:15 Blood Culture - Preliminary Blood A&P Assessment and plan (1) Pyelonephritis: (2) Acute renal insufficiency: (3) Hydronephrosis: Qualifiers: Hydronephrosis type: unspecified Qualified Code(s): N13.30 - Unspe cified hydronephrosis (4) Hyperlipidemia: (5) Generalized anxiety disorder: (6) Major depressive disorder, recurrent, moderate: (7) Gram-negative bacteremia: Plan 52-year-old lady with subacute symptoms of abdominal pain, low-grade fever over the past 2 weeks, currently presenting with worsening abdominal pain nausea vomiting over the last 24 hours prior to admission. Found to have pyelonephritis upon evaluation. #Acute right pyelonephritis #Right hydronephrosis, hydroureter Overall clinical concern for obstructive pyelonephritis. Urine culture showing gram-negative rods preliminarily. Currently on empiric treatment with piperacillin/tazobactam, await identification Blood culture from January 30 now also reported positive for gram-negative rods. Awaiting further identification. CT shows hydronephrosis, no danilo obstruction encountered. May be consistent with a passed stone. Currently creatinine and leukocytosis and is improving. Patient appears to be clinically stable. No fever. Hemodynamically stable. Defer urological in tervention for now. This may need to be reassessed if she clinically worsens. Repeat blood culture with a.m. labs to ensure clearance. Appreciate urology recommendation. #Uncontrolled diabetes mellitus Hemoglobin A1c of 11.9. Patient managed outpatient with endocrinology. change medium dose insulin to high-dose insulin sliding scale. Add Lantus 15 units at bedtime #Anxiety, depression: Continue home medications #Acute kidney injury: Creatinine currently at 1.9, urine output over 2 L IV fluids normal saline currently at 125 cc an hour to continue Monitor urine output and creatinine. CT findings as above Full code SCDs, heparin SQ twice daily for DVT prophylaxis Attestations Medical Necessity Statement*: Ongoing need for IV antibiotics, IV fluids, monitor renal function, repeat blood cultures to ensure clearance, awaiting final susceptibilities Coding Level of Care Code Acute Code for Chg Fwd High MDM includes number and complexity of problems actively addressed during e ncounter, amount and/or complexity of data reviewed/ordered and described risk of complication, morbidity or mortality of management as documented Diagnoses Pyelonephritis N12 Acute renal insufficiency N28.9 Hydronephrosis N13.30 Hydronephrosis type: unspecified Hyperlipidemia E78.5 Generalized anxiety disorder F41.1 Major depressive disorder, recurrent, moderate F33.1 Gram-negative bacteremia R78.81
[2023-02-01 16:00] VITALS: BP 159/88; PULSE 98; RESP 17; TEMP 36.6; O2SAT 98
--- NOTE | 2023-02-01 19:02 | P.PN_ITS ---
Subjective Subjective: Urology follow-up: Overall improved today. This morning she did not feel very good but she feels much better this evening. No fever. White count has improved. Decreased pain overall. No significant increase in flank pain. Looks better overall. More optimistic Vitals/I&O/Wt Last Vital Signs Temp 97.8 F 02/01/23 16:00 Pulse 98 02/01/23 16:00 Resp 17 02/01/23 16:00 BP 159/88 02/01/23 16:00 Pulse Ox 98 02/01/23 16:00 O2 Del Method Room Air 02/01/23 04:32 02/01/23 02/01/23 02/01/23 06:59 14:59 22:59 Intake Total 966.667 / 3928.750 1530 / 1530 240 / 1770 Output Total 1150 / 2150 Balance -183.333 / 7308.903 4252 / 1530 240 / 1770 Physical Exam Narrative: Overall appears much more comfortable today. Const: COMMON NORMALS: alert and well nourished GENERAL APPEARANCE: well kempt and well developed ORIENTATION/CONSCIOUSNESS: not confused Resp: COMMON NORMALS: normal respiratory effort EFFORT & INSPECTION: No labored and No Actively coughing Neuro: COMMON NORMALS: no focal motor deficits SENSORIUM/ORIENTATION: Yes alert Psych: COMMON NORMALS: mental status grossly normal APPEARANCE: Yes grossly normal and Yes well kempt ATTITUDE: Yes calm and Yes engaged Data 02/01/23 06:43 02/01/23 06:43 Micro: Microbiology 01/30/23 15:50 Urine Culture - Final Urine,Clean Catch Klebsiella pneumoniae 01/30/23 22:15 Blood Culture - Preliminary Blood A&P Assessment and plan (1) Pyelonephritis: Evidence of bilateral inflammatory changes Urine culture Klebsiella pneumoniae resistant only to ampicillin and nitrofurantoin. (2) Hydronephrosis: No progression of symptoms suspicious for development of obstructive concerns. Qualifiers: Hydronephrosis type: unspecified Qualified Code(s): N13.30 - Unspecified hydronephrosis (3) Acute renal insufficiency: Better Plan Continue initial plan of holding on stent, treating with antibiotics looking for course of improvement consistent with severe pyelonephritis Attestations Medical Necessity Statement*: See attending Coding Level of Care Code Acute Code for [facility] Diagnoses Pyelonephritis N12 Hydronephrosis N13.30 Hydronephrosis type: unspecified Acute renal insufficiency N28.9
[2023-02-01 20:00] VITALS: BP 144/79; PULSE 97; RESP 18; TEMP 36.8; O2SAT 99
[2023-02-01] MEDS: amitriptyline 25 mg Tablet PO (20:54)
[2023-02-01] MEDS: insulin glargine 100 units/1 mL 15 UNIT SUBCUT (22:53)
[2023-02-02] VITALS (7 sets, daily range): BP systolic 146–182; BP diastolic 77–109; PULSE 87–103; RESP 16–18; TEMP 36.4–36.8; O2SAT 97–100
[2023-02-02] MEDS: sodium chloride 0.9% 1,000 ML 125 ML IV ×3 (04:43→20:29)
[2023-02-02 05:13] LABS: Basophils # 0.1 10^3/uL (0.0-0.1); Basophils % 0.7 %; Eosinophils # 0.2 10^3/uL (0.0-0.8); Eosinophils % 1.9 %; Hematocrit 25.9 % (37.0-47.0); Hemoglobin 7.9 g/dL (11.5-15.3); Lymphocytes # 2.3 10^3/uL (0.8-4.8); Lymphocytes % 23.5 %; Mean Corpuscular HGB Conc 30.5 g/dL (30.0-36.0); Mean Corpuscular Hemoglobin 25.2 pg (28.0-34.0); Mean Corpuscular Volume 82.5 fl (81-99); Mean Platelet Volume 9.9 fL (7.4-10.4); Monocytes # 0.6 10^3/uL (0.2-0.9); Monocytes % 6.5 %; Neutrophils # 6.53 10^3/uL (1.8-7.7); Nucleated Red Blood Cells % 0 %; Platelet Count 589 10^3/cmm (130-400); Red Blood Count 3.14 10^6/uL (4.1-5.3); Red Cell Distribution Width 14.1 % (12.1-15.1); White Blood Count 9.9 10^3/uL (4.0-10.0)
[2023-02-02 05:31] LABS: Alanine Aminotransferase 8 U/L (0-33); Albumin Level 2.3 g/dL (3.5-5.2); Alkaline Phosphatase 67 U/L (35-105); Anion Gap 17.3 (5-19); Aspartate Amino Transferase 13 U/L (0-32); Blood Urea Nitrogen 26 mg/dL (6-20); Calcium 8.1 mg/dL (8.5-10.5); Carbon Dioxide 18 mmol/L (22-29); Chloride 107 mmol/L (98-107); Globulin 3.9 g/dL (1.3-4.6); Glomerular Filtration Rate 31.6 mL/min (90-130); Glucose 104 mg/dL (65-115); Osmolality Calculated 291 mOsm/kg (285-295); Potassium 4.3 mmol/L (3.5-5.1); Sodium 138 mmol/L (136-145); Total Bilirubin 0.2 mg/dL (0.15-1.2); Total Protein 6.2 g/dL (6.6-8.7)
[2023-02-02 05:44] LABS: Slide Review Slide Review Perform
[2023-02-02 07:05] LABS: Glucose Point of Care 294 mg/dL (70-110)
[2023-02-02 07:06] LABS: Glucose Point of Care 181 mg/dL (70-110)
[2023-02-02 07:06] LABS: Glucose Point of Care 98 mg/dL (70-110)
[2023-02-02 07:06] LABS: Glucose Point of Care 69 mg/dL (70-110)
[2023-02-02 07:06] LABS: Glucose Point of Care 201 mg/dL (70-110)
[2023-02-02 07:06] LABS: Glucose Point of Care 169 mg/dL (70-110)
[2023-02-02 07:06] LABS: Glucose Point of Care 299 mg/dL (70-110)
[2023-02-02 07:06] LABS: Glucose Point of Care 108 mg/dL (70-110)
[2023-02-02] MEDS: piperacillin-tazobactam 3.375 GM in sodium chloride 0.9% (plus) 50 ML IV ×2 (08:51→17:56)
[2023-02-02] MEDS: duloxetine 60 mg Capsule PO (08:51)
[2023-02-02] MEDS: heparin 5,000 unit/mL INJ 1 mL 5000 UNIT SUBCUT ×2 (08:51→20:28)
[2023-02-02] MEDS: atorvastatin 40 mg Tablet 20 MG PO (08:51)
[2023-02-02] MEDS: duloxetine 30 mg Capsule PO (08:51)
--- NOTE | 2023-02-02 09:40 | PC.SOCIAL ---
IMM update IMM updated with patient. Copy Pg 2 provided. Verbalized an understanding. Initialled, dated, timed, and placed in chart.
[2023-02-02 12:18] LABS: Glucose Point of Care 206 mg/dL (70-110)
[2023-02-02] MEDS: insulin lispro 100 unit/1 mL SUBCUT ×3 (12:56→20:28)
[2023-02-02 17:03] LABS: Glucose Point of Care 189 mg/dL (70-110)
[2023-02-02] MEDS: TRAMadol 50 mg Tablet PO (17:59)
[2023-02-02] MEDS: insulin glargine 100 units/1 mL 15 UNIT SUBCUT (20:28)
[2023-02-02] MEDS: amitriptyline 25 mg Tablet PO (20:28)
[2023-02-02 20:30] LABS: Glucose Point of Care 232 mg/dL (70-110)
--- NOTE | 2023-02-02 22:47 | P.PN_ITS ---
Subjective Subjective: leukocytosis resolved, afebrile, symptomatically better Medications: Reviewed: Yes Vitals/I&O/Wt Last Vital Signs Temp 98.0 F 02/02/23 20:00 Pulse 95 02/02/23 20:00 Resp 18 02/02/23 20:00 BP 158/77 02/02/23 20:00 Pulse Ox 99 02/02/23 20:00 O2 Del Method Room Air 02/02/23 20:00 02/02/23 02/02/23 02/02/23 06:59 14:59 22:59 Intake Total 1020.833 / 4080.833 1650 / 1650 1593.75 / 3243.75 Balance 1020.833 / 4080.833 1650 / 1650 1593.75 / 3243.75 Physical Exam Narrative: General: No acute distress, AO x3 HEENT: PERRLA, pupils bilaterally equal and reactive, pallors not present Chest: Normal vesicular breath sounds, no added sounds, equal good air entry bilaterally CVS: S1-S2 regular, no murmurs, no tachycardia, no gallops, no rubs Abdomen: Soft, nontender, no organomegaly, bowel sounds present Neuro: No focal deficits, no facial deformity, AO x3, power 5/5 in all limbs Data 02/02/23 04:39 02/02/23 04:39 Micro: Microbiology 01/30/23 22:15 Blood Culture - Preliminary Blood 01/30/23 22:19 Blood Culture - Preliminary Blood A&P Assessment and plan (1) Pyelonephritis: (2) Acute renal insufficiency: (3) Hydronephrosis: Qualifiers: Hydronephrosis type: unspecified Qualified Code(s): N13.30 - Unspecified hydronephrosis (4) Hyperlipidemia: (5) Generalized anxiety disorder: (6) Major depressive disorder, recurrent, moderate: (7) Gram-negative bacteremia: Plan 52-year-old lady with subacute symptoms of abdominal pain, low-grade fever over the past 2 weeks, currently presenting with worsening abdominal pain nausea vomiting over the last 24 hours prior to admission. Found to have pyelonephritis upon evaluation. #Acute right pyelonephritis #Right hydronephrosis, hydroureter Overall clinical concern for obstructive pyelonephritis. Urine culture showing gram-negative rods preliminarily. Currently on empiric treatment with piperacillin/tazobactam, await identification Blood culture from January 30 now also reported positive for gram-negative rods. Awaiting further identification. CT shows hydronephrosis, no danilo obstruction encountered. May be consistent with a passed stone. Currently creatinine and leukocytosis and is improving. Patient appears to be clinically stable. No fever. Hemodynamically stable. Defer urological intervention for now. This may need to be reassessed if she clinically worsens. Repeat blood culture with a.m. labs to ensure clearance. Appreciate urology recommendation. #Uncontrolled diabetes mellitus Hemoglobin A1c of 11.9. Patient managed outpatient with endocrinology. change medium dose insulin to high-dose insulin sliding scale. Add Lantus 15 units at bedtime #Anxiety, depression: Continue home medications #Acute kidney injury: Creatinine currently at 1.9, urine output over 2 L IV fluids normal saline currently at 125 cc an hour to continue Monitor urine output and creatinine. CT findings as above Full code SCDs, heparin SQ twice daily for DVT prophylaxis Plan for today: improving overall, D/c IVF, encourage po intake, check renal function in am, change abx to po, if tolerates above, plan for d/c in am Attestations Medical Necessity Statement*: as above Coding Level of Care Code Acute Code for [facility] Fwd Diagnoses Pyelonephritis N12 Acute renal insufficiency N28.9 Hydronephrosis N13.30 Hydronephrosis type: unspecified Hyperlipidemia E78.5 Generalized anxiety disorder F41.1 Major depressive disorder, recurrent, moderate F33.1 Gram-negative bacteremia R78.81
[2023-02-03 04:00] VITALS: BP 192/91; PULSE 99; RESP 18; TEMP 36.7; O2SAT 96
[2023-02-03] MEDS: TRAMadol 50 mg Tablet PO (04:17)
[2023-02-03 05:27] LABS: Basophils # 0.1 10^3/uL (0.0-0.1); Basophils % 0.5 %; Eosinophils # 0.2 10^3/uL (0.0-0.8); Eosinophils % 1.9 %; Hemoglobin 7.9 g/dL (11.5-15.3); Lymphocytes # 3.3 10^3/uL (0.8-4.8); Lymphocytes % 25.5 %; Mean Corpuscular HGB Conc 30.4 g/dL (30.0-36.0); Mean Corpuscular Hemoglobin 24.6 pg (28.0-34.0); Mean Platelet Volume 8.9 fL (7.4-10.4); Monocytes # 0.6 10^3/uL (0.2-0.9); Monocytes % 4.8 %; Neutrophils # 8.43 10^3/uL (1.8-7.7); Nucleated Red Blood Cells % 0 %; Platelet Count 625 10^3/cmm (130-400); Red Blood Count 3.21 10^6/uL (4.1-5.3); Red Cell Distribution Width 14.2 % (12.1-15.1)
[2023-02-03 05:51] LABS: Alanine Aminotransferase 10 U/L (0-33); Albumin Level 2.2 g/dL (3.5-5.2); Alkaline Phosphatase 85 U/L (35-105); Anion Gap 15.1 (5-19); Aspartate Amino Transferase 14 U/L (0-32); Blood Urea Nitrogen 23 mg/dL (6-20); Calcium 7.8 mg/dL (8.5-10.5); Carbon Dioxide 18 mmol/L (22-29); Chloride 109 mmol/L (98-107); Creatinine Clr Calc Pharmacy 42.5157; Globulin 4.1 g/dL (1.3-4.6); Glomerular Filtration Rate 33.8 mL/min (90-130); Glucose 93 mg/dL (65-115); Osmolality Calculated 289 mOsm/kg (285-295); Potassium 4.1 mmol/L (3.5-5.1); Sodium 138 mmol/L (136-145); Total Bilirubin 0.2 mg/dL (0.15-1.2); Total Protein 6.3 g/dL (6.6-8.7)
[2023-02-03 06:32] LABS: Glucose Point of Care 95 mg/dL (70-110)
[2023-02-03 07:32] VITALS: PULSE 91; RESP 16; TEMP 36.5; O2SAT 96
[2023-02-03] MEDS: heparin 5,000 unit/mL INJ 1 mL 5000 UNIT SUBCUT (07:55)
[2023-02-03] MEDS: atorvastatin 40 mg Tablet 20 MG PO (09:00)
[2023-02-03] MEDS: ciprofloxacin 500 mg Tablet PO (09:01)
[2023-02-03] MEDS: duloxetine 30 mg Capsule PO (09:02)
[2023-02-03] MEDS: duloxetine 60 mg Capsule PO (09:03)
--- NOTE | 2023-02-03 10:47 | PM.DCS ---
Discharge Providers Date of Admission: 01/30/23 20:27 Date of Discharge: February 03, 2023 Attending Provider at Admission: Kristine Torres MD Attending Provider at Discharge: Liudmila Shaw MD Primary Care Provider: SEGUN Mulligan Diagnoses at Discharge Discharge Diagnosis (1) Pyelonephritis: Status: Acute (2) Acute renal insufficiency: Status: Acute (3) Hydronephrosis: Status: Acute Qualifiers: Hydronephrosis type: unspecified Qualified Code(s): N13.30 - Unspecified hydronephrosis (4) Hyperlipidemia: Status: Acute (5) Generalized anxiety disorder: Status: Chronic (6) Major depressive disorder, recurrent, moderate: Status: Chronic (7) Gram-negative bacteremia: Status: Acute Reason for Visit Reason for Visit: sob,dizzy, low back pain Hospital Course Hospital Course 52-year-old lady with subacute symptoms of abdominal pain, low-grade fever over the past 2 weeks, admitted on 01/30 with worsening abdominal pain nausea vomiting over 24 hours prior to admission.? Found to have obstrcutive pyelonephritis and Klebsiella bacteremia upon evaluation. #Acute right pyelonephritis #Right hydronephrosis, hydroureter Overall clinical concern for obstructive pyelonephritis. Urine culture showing showing Klebsiella pneumonia. Same organism isolated from blood culture. Received treatment with IV piperacillin/tazobactam during the hospital stay. Transition to oral ciprofloxacin 500 mg p.o. twice daily at the time of discharge. Recommended to continue treatment for total 14 days (01/30-02/13) Appreciate urology recommendation. No surgical intervention indicated given patient showed clinical improvement with antibiotics. CT of her abdomen showed mild to moderate right hydronephrosis with perinephric edema, findings may be suggestive of a recently passed calculus. #Acute kidney injury: Her creatinine upon admission was at 2.5, she received IV hydration with normal saline 125 cc an hour during course of admission. At the time of discharge her creatinine has improved to 1.6. Recent baseline appears to be a creatinine between 1-1.3 from May 2022. #Uncontrolled diabetes mellitus Hemoglobin A1c of 11.9. Patient managed outpatient with endocrinology. Follow-up with endocrinology as planned. Multiple recent changes are being made to her insulin regimen recenty in keeping with endocrinology recommendations and frequent hypoglycemia # Anemia: Upon admission patient had a hemoglobin of 10. During course of admission hemoglobin has slowly drifted down to 7.9. No overt source of bleeding. Iron studies, ferritin, TIBC, B12 and folate have been ordered, recommend following up with primary care provider within the next week for repeat hemoglobin check and also follow-up kidney function. #Anxiety, depression: Continue home medications Physical Exam Narrative: General: No acute distress, AO x3 HEENT: PERRLA, pupils bilaterally equal and reactive, pallors not present Chest: Normal vesicular breath sounds, no added sounds, equal good air entry bilaterally CVS: S1-S2 regular, no murmurs, no tachycardia, no gallops, no rubs Abdomen: Soft, nontender, no organomegaly, bowel sounds present Neuro: No focal deficits, no facial deformity, AO x3, power 5/5 in all limbs Discharge Data Studies Completed and Pending Completed Studies During Hospitalization Category Date Time Status CT abdomen pelvis con [id number] Stat Cat Scan 01/30/23 17:35 Completed Pending at discharge Category Date Time Status B12 [Vitamin B12] Routine Lab 02/03/23 10:12 Ordered Blood Cultures ([facility]) Routine Lab 01/30/23 22:15 Results Blood Cultures ([facility]) Routine Lab 01/30/23 22:19 Results Blood Cultures ([facility]) Routine Lab 02/02/23 06:43 Received Ferritin Routine Lab 02/03/23 10:12 Ordered Folate Level Routine Lab 02/03/23 10:13 Ordered Iron Routine Lab 02/03/23 10:12 Ordered Transferrin Routine Lab 02/03/23 10:12 Ordered Radiology Impressions Abdomen/Pelvis CT 01/30/23 17:35 IMPRESSION: 1. Glki-[id number]-[id number] right hydronephrosis and hydroureter with perinephric edema, please correlate for pyelonephritis. Negative for obstructing lesion seen, findings may reflect sequelae of a recently passed calculus and/or underlying infection. 2. Several punctate calcifications in the pelvis felt to likely reflect phleboliths. 3. Left kidney perinephric edema may reflect underlying infection, renal insufficiency is also consideration. 4. Constipation. 5. Coronary artery atherosclerotic calcifications. 6. Cholelithiasis. Laboratory Results WBC 13.0 10^3/uL (4.0-10.0) H 02/03/23 05:09 RBC 3.21 10^6/uL (4.1-5.3) L 02/03/23 05:09 Hgb 7.9 g/dL (11.5-15.3) L 02/03/23 05:09 Hct 26.0 % (37.0-47.0) L 02/03/23 05:09 MCV 81.0 fl (81-99) 02/03/23 05:09 MCH 24.6 pg (28.0-34.0) L 02/03/23 05:09 MCHC 30.4 g/dL (30.0-36.0) 02/03/23 05:09 RDW 14.2 % (12.1-15.1) 02/03/23 05:09 Plt Count 625 10^3/cmm (130-400) H 02/03/23 05:09 MPV 8.9 fL (7.4-10.4) 02/03/23 05:09 Neut % (Auto) 65.0 % 02/03/23 05:09 Lymph % (Auto) 25.5 % 02/03/23 05:09 [place] % (Auto) 4.8 % 02/03/23 05:09 Eos % (Auto) 1.9 % 02/03/23 05:09 Baso % (Auto) 0.5 % 02/03/23 05:09 Neut # (Auto) 8.43 10^3/uL (1.8-7.7) H 02/03/23 05:09 Lymph # (Auto) 3.3 10^3/uL (0.8-4.8) 02/03/23 05:09 [place] # (Auto) 0.6 10^3/uL (0.2-0.9) 02/03/23 05:09 Eos # (Auto) 0.2 10^3/uL (0.0-0.8) 02/03/23 05:09 Baso # (Auto) 0.1 10^3/uL (0.0-0.1) 02/03/23 05:09 Nucleated RBC % (auto) 0 % 02/03/23 05:09 Nucleated RBCs # 0.0 /100WBC 02/03/23 05:09 Sodium 138 mmol/L (136-145) 02/03/23 05:09 Potassium 4.1 mmol/L (3.5-5.1) 02/03/23 05:09 Chloride 109 mmol/L (98-107) H 02/03/23 05:09 Carbon Dioxide 18 mmol/L (22-29) L 02/03/23 05:09 Anion Gap 15.1 (5-19) 02/03/23 05:09 BUN 23 mg/dL (6-20) H 02/03/23 05:09 Creatinine 1.6 mg/dL (0.5-0.9) H 02/03/23 05:09 GFR Calculation 33.8 mL/min (90-130) L 02/03/23 05:09 Glucose 93 mg/dL (65-115) 02/03/23 05:09 POC Glucose 95 mg/dL (70-110) 02/03/23 06:16 Estimat Average Glucose 295 01/30/23 20:30 Hemoglobin A1c 11.9 % (4.0-6.0) H 01/30/23 20:30 Calculated Osmolality 289 mOsm/kg (285-295) 02/03/23 05:09 Lactic Acid 0.9 mmol/L (0.5-2.2) 01/30/23 20:30 Calcium 7.8 mg/dL (8.5-10.5) L 02/03/23 05:09 Magnesium 2.0 mg/dL (1.7-2.3) 01/30/23 15:50 Total Bilirubin 0.2 mg/dL (0.15-1.2) 02/03/23 05:09 AST 14 U/L (0-32) 02/03/23 05:09 ALT 10 U/L (0-33) 02/03/23 05:09 Alkaline Phosphatase 85 U/L (35-105) 02/03/23 05:09 Total Protein 6.3 g/dL (6.6-8.7) L 02/03/23 05:09 Albumin 2.2 g/dL (3.5-5.2) L 02/03/23 05:09 Globulin 4.1 g/dL (1.3-4.6) 02/03/23 05:09 Procalcitonin 1.42 ng/mL (0-0.5) H 01/30/23 20:30 Urine Color Straw (Yellow) 01/30/23 15:50 Urine Appearance Cloudy (CLEAR) A 01/30/23 15:50 Urine pH 5 (5-7) 01/30/23 15:50 Ur Specific [place] 1.015 (1.005-1.030) 01/30/23 15:50 Urine Protein 1+ (Negative) H 01/30/23 15:50 Urine Glucose (UA) 4+ (Normal) H 01/30/23 15:50 Urine Ketones 1+ (Negative) H 01/30/23 15:50 Urine Blood 3+ (Negative) H 01/30/23 15:50 Urine Nitrate Negative (Negative) 01/30/23 15:50 Urine Bilirubin Neg (Negative) 01/30/23 15:50 Urine Urobilinogen Norm mg/dL (Negative) 01/30/23 15:50 Ur Leukocyte Esterase 2+ (Negative) H 01/30/23 15:50 Urine RBC 10-15 /hpf (0-2) H 01/30/23 15:50 Urine WBC >100 /hpf (0-5) H 01/30/23 15:50 Ur Squamous Epith Cells 0-4 /hpf (0-5) H 01/30/23 15:50 Amorphous Sediment Not Reportable 01/30/23 15:50 Urine Bacteria 2+ /hpf (NONE) H 01/30/23 15:50 Misc Test Reference Cancelled 01/31/23 22:19 Vitals Last Vital Signs Temp 97.7 F 02/03/23 07:32 Pulse 91 02/03/23 07:32 Resp 16 02/03/23 07:32 BP 192/91 02/03/23 04:00 Pulse Ox 96 02/03/23 07:32 O2 Del Method Room Air 02/03/23 07:32 Discharge Plan Discharge Patient Disposition: Home Condition: Stable Prescriptions: New ciprofloxacin HCl 500 mg Tablet 500 mg PO BID@0900,2100 10 Days Qty: 20 0RF Continued ergocalciferol (vitamin D2) 2,000 unit tablet 2,000 unit PO DAILY (DME) lancets [BD Ultra Fine Lancets] 33 gauge misc See Rx Instructions .ROUTE .MEDSUPPLY Qty: 100 3RF Rx Instructions: two times daily (DME) FreeStyle [place] 2 Sensor Kit See Rx Instructions .Route Qty: 6 3RF Rx Instructions: Change every 14 days. Jardiance 25 mg tablet 25 mg PO QAM Qty: 90 3RF Janumet XR 100-1,000 mg tablet, ER multiphase 24 hr 1 tab PO DAILY Qty: 90 3RF duloxetine [Cymbalta] 30 mg capsule,delayed release(DR/EC) 30 mg PO DAILY Qty: 90 0RF Rx Instructions: take one capsule by mouth every day with the 60 mg duloxetine [Cymbalta] 60 mg capsule,delayed release(DR/EC) 60 mg PO DAILY Qty: 90 0RF Rx Instructions: take one capsule by mouth every day with the 30 mg suvorexant 10 mg tablet 10 mg PO .q hs Qty: 90 0RF Rx Instructions: Take one tablet daily at bedtime; discontinue the 5 mg dose (DME) FreeStyle [place] 2 [place] Misc See Rx Instructions .Route Qty: 1 0RF Rx Instructions: As directed Humulin R U-500 (Conc) Kwikpen 500 unit/mL (3 mL) insulin pen See Rx Instructions .ROUTE .COMPLEX Qty: 48 1RF Dose Instruction: INJECT 40 UNITS SUBCUTANEOUSLY WITH BREAKFAST, 100 UNITS WITH LUNCH, & 100 UNITS WITH SUPPER (BULK) Rx Instructions: INJECT 40 UNITS SUBCUTANEOUSLY WITH BREAKFAST, 100 UNITS WITH LUNCH, & 100 UNITS WITH SUPPER (BULK) atorvastatin 20 mg tablet 20 mg PO DAILY Rx Instructions: Take 1 tablet by mouth once daily amitriptyline 25 mg Tablet 25 mg PO BEDTIME Discharge Orders: Discharge Order (Routine); Ordered 02/03/23 Ordered By: Liudmila Shaw Referrals: Joellen Hill FNP [Primary Care Provider] - 4-7 days Patient Instructions: Ciprofloxacin (By mouth), Urinary Tract Infection in Women (GEN), Opioid Safety, Pyelonephritis Discharge Attestations Time Spent in Discharge Care*: greater than 30 min Quality Metrics Clinical Quality Measures [ No reported AMI, CVA or VTE this stay] Coding Level of Care Code Acute Code for [facility] Fwd Diagnoses Pyelonephritis N12 Acute renal insufficiency N28.9 Hydronephrosis N13.30 Hydronephrosis type: unspecified Hyperlipidemia E78.5 Generalized anxiety disorder F41.1 Major depressive disorder, recurrent, moderate F33.1 Gram-negative bacteremia R78.81
[2023-02-03] MEDS: amlodipine 10 mg Tablet PO (10:48)
[2023-02-03 10:53] VITALS: BP 168/95; PULSE 99; TEMP 36.8; O2SAT 100
[2023-02-03 11:12] LABS: Ferritin 344 ng/mL (15-150); Iron 20 ug/dL (37-145); Transferrin 113 mg/dL (200-360)
[2023-02-03 11:14] LABS: Glucose Point of Care 243 mg/dL (70-110)
[2023-02-03 11:27] LABS: Vitamin B12 434 pg/mL (232-1245)
[2023-02-03] MEDS: insulin lispro 100 unit/1 mL SUBCUT (12:03)
[2023-02-03 16:00] VITALS: BP 168/93; PULSE 93; TEMP 36.8; O2SAT 98
[2023-02-03 17:08] VITALS: BP 168/93; PULSE 93; TEMP 36.8; O2SAT 98
== END 2023-02-03 17:09 | disposition home or self-care (01) | DRG 690 ==
LOC: ER 20:14 → MEDSURG 20:27
PROVIDERS: Physician Assistant; Admitting Provider Internal Medicine; Emergency Provider Emergency Medicine; PCP Registered Nurse; Visit Provider Student in an Organized Health Care Education/Training Program
DX: N10 Acute pyelonephritis (principal); F33.1 Major depressive disorder, recurrent, moderate; B96.1 Klebsiella pneumoniae [K. pneumoniae] as the cause of diseases classified elsewhere; N17.9 Acute kidney failure, unspecified; E11.65 Type 2 diabetes mellitus with hyperglycemia; D64.9 Anemia, unspecified; Z79.84 Long term (current) use of oral hypoglycemic drugs; Z79.4 Long term (current) use of insulin; G89.29 Other chronic pain; F43.12 Post-traumatic stress disorder, chronic; I10 Essential (primary) hypertension; F41.1 Generalized anxiety disorder; Z96.652 Presence of left artificial knee joint
CPT/HCPCS: 36415; 36416; 51798; 74176; 80048; 80053; 81001; 82607; 82728; 82746; 82962; 83036; 83540; 83605; 83735; 84145; 84466; 85025; 87040; 87077; 87086; 87186; 96365; 96372; 96375; 99285; J1644; J1815; J1885; J2405; J2543; J7030

== ENCOUNTER → 2023-02-10 14:09 | Outpatient (BNVA) | payer MEDICARE, MEDICAID, SELFPAY | PROVIDERS: PCP Registered Nurse; Visit Provider Registered Nurse | DX: N39.0 Urinary tract infection, site not specified (principal) | CPT/HCPCS: 81000; 85025; 87086 ==

== ENCOUNTER → 2023-03-03 13:26 | Outpatient (BNVA) | payer MEDICARE, MEDICAID, SELFPAY | PROVIDERS: PCP Registered Nurse; Visit Provider Registered Nurse | DX: N39.0 Urinary tract infection, site not specified (principal) | CPT/HCPCS: 81000; 87086 ==

== ENCOUNTER → 2023-03-07 10:49 | Outpatient (BNVA) | payer MEDICARE, MEDICAID, SELFPAY | PROVIDERS: PCP Registered Nurse; Visit Provider Internal Medicine | DX: E11.319 Type 2 diabetes mellitus with unspecified diabetic retinopathy without macular edema (principal); E11.65 Type 2 diabetes mellitus with hyperglycemia; E78.5 Hyperlipidemia, unspecified; Z79.4 Long term (current) use of insulin; Z79.84 Long term (current) use of oral hypoglycemic drugs | CPT/HCPCS: 99214 ==

== ENCOUNTER → 2023-06-07 08:52 | Outpatient (BNVA) | payer MEDICARE, OTHER, SELFPAY | PROVIDERS: PCP Registered Nurse; Visit Provider Registered Nurse | DX: E11.65 Type 2 diabetes mellitus with hyperglycemia (principal); I10 Essential (primary) hypertension; F43.12 Post-traumatic stress disorder, chronic; R42 Dizziness and giddiness | CPT/HCPCS: 80053; 80061; 82043; 83036 ==

== ENCOUNTER → 2023-07-21 13:49 | Outpatient (BNVA) | payer MEDICARE, SELFPAY | PROVIDERS: PCP Registered Nurse; Visit Provider Registered Nurse | DX: N39.0 Urinary tract infection, site not specified (principal); R11.10 Vomiting, unspecified; R42 Dizziness and giddiness; K52.9 Noninfective gastroenteritis and colitis, unspecified | CPT/HCPCS: 81000; 87086; 87400; 87426 ==

== ENCOUNTER → 2023-08-22 13:04 | Outpatient (BNVA) | payer MEDICARE, MEDICAID, SELFPAY | PROVIDERS: PCP Registered Nurse; Visit Provider Podiatrist Foot & Ankle Surgery | DX: B35.1 Tinea unguium (principal); E11.40 Type 2 diabetes mellitus with diabetic neuropathy, unspecified; G62.9 Polyneuropathy, unspecified; I73.9 Peripheral vascular disease, unspecified; Z79.4 Long term (current) use of insulin | CPT/HCPCS: 11721; 99203 ==

== ENCOUNTER → 2023-09-13 09:15 | Outpatient (BNVA) | payer MEDICARE, SELFPAY | PROVIDERS: PCP Registered Nurse; Visit Provider Registered Nurse | DX: E11.9 Type 2 diabetes mellitus without complications (principal); Z79.4 Long term (current) use of insulin; I10 Essential (primary) hypertension; E11.65 Type 2 diabetes mellitus with hyperglycemia; N39.0 Urinary tract infection, site not specified | CPT/HCPCS: 80053; 81000; 83036; 87086 ==

== ENCOUNTER → 2023-10-18 15:14 | Outpatient (BNVA) | payer MEDICARE, SELFPAY | PROVIDERS: PCP Registered Nurse; Visit Provider Registered Nurse | DX: R05.9 Cough, unspecified (principal); N39.0 Urinary tract infection, site not specified | CPT/HCPCS: 81000; 87086; 87400; 87426 ==

== ENCOUNTER → 2023-12-12 08:38 | Outpatient (BNVA) | payer MEDICARE, SELFPAY | PROVIDERS: PCP Registered Nurse; Visit Provider Internal Medicine | DX: E11.319 Type 2 diabetes mellitus with unspecified diabetic retinopathy without macular edema (principal); E11.65 Type 2 diabetes mellitus with hyperglycemia; E78.5 Hyperlipidemia, unspecified; Z79.4 Long term (current) use of insulin; Z79.84 Long term (current) use of oral hypoglycemic drugs | CPT/HCPCS: 99214 ==

== ENCOUNTER → 2023-12-15 11:04 | Outpatient (BNVA) | payer MEDICARE, SELFPAY | PROVIDERS: PCP Registered Nurse; Visit Provider Podiatrist Foot & Ankle Surgery | DX: E11.8 Type 2 diabetes mellitus with unspecified complications (principal); B35.1 Tinea unguium; E11.40 Type 2 diabetes mellitus with diabetic neuropathy, unspecified; Z79.4 Long term (current) use of insulin; G62.9 Polyneuropathy, unspecified; I73.9 Peripheral vascular disease, unspecified | CPT/HCPCS: 11721 ==

== ENCOUNTER 2023-12-31 01:06 | Emergency (ER) | payer MEDICARE, MEDICAID, SELFPAY ==
[2023-12-31 01:07] VITALS: BP 226/88; PULSE 80; RESP 16; TEMP 36.6; O2SAT 98; BMI 35.9
[2023-12-31 01:28] LABS: Glucose Point of Care 424 mg/dL (70-110)
[2023-12-31 01:35] LABS: Basophils # 0.1 10^3/uL (0.0-0.1); Basophils % 0.7 %; Eosinophils # 0.2 10^3/uL (0.0-0.8); Eosinophils % 1.5 %; Hematocrit 35.4 % (36-47); Lymphocytes # 2.5 10^3/uL (0.8-4.8); Lymphocytes % 22.8 %; Mean Corpuscular HGB Conc 33.6 g/dL (30-55); Mean Corpuscular Hemoglobin 27.2 pg (27-33); Mean Platelet Volume 10.5 fL (7.4-10.4); Monocytes # 0.5 10^3/uL (0.2-0.9); Monocytes % 4.9 %; Neutrophils # 7.52 10^3/uL (1.8-7.7); Neutrophils % 68.8 %; Nucleated Red Blood Cells % 0 %; Platelet Count 373 10^3/cmm (157-399); Red Blood Count 4.37 10^6/uL (3.85-5.65); Red Cell Distribution Width 12.7 % (12.1-15.1); White Blood Count 10.92 10^3/uL (3.29-11.43)
[2023-12-31] MEDS: sodium chloride 0.9% 1,000 ML 999 ML IV (01:41)
[2023-12-31] MEDS: insulin regular-human 100 units/1 mL 15 UNIT IVP (01:42)
[2023-12-31 02:07] LABS: Alanine Aminotransferase 11 U/L (0-33); Albumin Level 3.9 g/dL (3.5-5.2); Alkaline Phosphatase 120 U/L (35-105); Anion Gap 21.5 (5-19); Aspartate Amino Transferase 13 U/L (0-32); Blood Urea Nitrogen 63 mg/dL (6-20); Carbon Dioxide 18 mmol/L (22-29); Chloride 90 mmol/L (98-107); Creatinine Clr Calc Pharmacy 22.7051; Globulin 3.6 g/dL (1.3-4.6); Glomerular Filtration Rate 15.2 mL/min (90-130); Glucose 447 mg/dL (65-115); Osmolality Calculated 297 mOsm/kg (285-295); Potassium 4.5 mmol/L (3.5-5.1); Sodium 125 mmol/L (136-145); Total Bilirubin 0.4 mg/dL (0.15-1.2); Total Protein 7.5 g/dL (6.6-8.7)
--- NOTE | 2023-12-31 02:11 | ED_ITS ---
HPI - Recheck/Abnormal Lab/Rx 2 General: Chief Complaint: Recheck/Abnormal Lab/Rx Stated Complaint: stress, htn, hyperglycemia Time Seen by Provider: 12/31/23 01:11 History of Present Illness: 53-year-old female presents emergency de partment via EMS personnel with complaints of increased stress in her life as she has family members that her causing her difficulties over family pets. Patient states she has a longstanding history of hypertension that is uncontrolled given her end-stage renal disease. She also is a diabetic and is hyperglycemic. Review of Systems 2 General: Reports: 10 or more systems reviewed and unremarkable except in HPI and below Psych: Reports: other (Stress) Endo: Reports: other (Hyperglycemia) PFSH ED 2 PFSH: Medical History Bereavement Major depressive disorder, recurrent, in partial remission Psychiatric care FH: total knee replacement left Uncontrolled type 2 diabetes mellitus Essential hypertension HLA B27 (HLA B27 positive) High risk medication use Inflammatory arthritis Seronegative spondyloarthropathy Chronic insomnia See subjective note below. Chronic pain See subjective note below. Chronic post-traumatic stress disorder (PTSD) Generalized anxiety disorder Major depressive disorder, recurrent, moderate Surgical History History of hysterectomy for benign disease History of tonsillectomy History of appendectomy History of left knee replacement Family History Mother Hypertension Diabetes Psychiatric illness Thyroid disease Father , in his 50's Family history of premature coronary artery disease Hyperlipidemia Myocardial infarction Brother Hypertension Sister No problems noted. Denies family history of Rheumatoid arthritis Lupus Social History Smoking and tobacco/nicotine status: never used tobacco/nicotine Second hand smoke exposure: No Alcohol intake: never Substance/Drug Use: never Adopted: No Caregiver/support person: No Lives independently: No Household members: family service: No Current occupational status: unemployed and disabled Sexually active: Yes Do you think of yourself as: Straight/Heterosexual Current gender identity: Female Physical Exam 2 Narrative: EXAM NARRATIVE: Constitutional: the patient appears well nourished and with normal development. Vital signs reviewed as documented. HENMT: Normocephalic, atraumatic. External ears normal appearance without drainage. Nose without drainage, normal appearance. Mucus membranes moist. Neck is supple, No jugular venous distension, trachea is midline, no appreciable carotid bruits. No lymphadenopathy. No meningeal signs. Flexion, extension and lateral rotation is without pain. Eyes: Pupils are equal, round, reactive to light and accommodation. No scleral icterus. Extra-ocular movement are intact. Thorax is symmetrical and with equal rise and fall with respirations. Resp: Lungs are clear to auscultation. No wheezes, rales, crackles or ronchi at present. Cardio: Regular rate and rhythm. Positive S1, S2. No appreciable murmurs, rubs or gallops. GI: Abdominal exam reveals normal bowel sounds to all quadrants. No organomegaly. No obvious palpable masses noted. No hepatomegally appreciated. Soft, non-tender to palpation. Extremity: Extremities are non-edematous and both femoral and pedal pulses are 2+ and equal bilaterally. Moves all extremities well, sensation in all extremities. Neuro: Alert and oriented x4, person, place, time and situation. Cranial nerves II through XII are grossly intact, there is no focal neurological deficits that I can appreciate at present. Sensation intact to all extremities. 2-point discrimination intact. Light touch intact to all extremities. Motor strength in the upper and lower extremities are equal and bilateral 5/5. Psych: Cooperative, calm, normal thought process, appropriate judgment. Skin: No lesions, rashes. No gross abnormalities noted. Back: Symmetrical, no obvious deformity, No CVA tenderness Course 2 Vital Signs: Vital signs: Vital Signs Temperature 98 F 12/31/23 01:07 Pulse Rate 75 12/31/23 03:47 Respiratory Rate 20 H 12/31/23 03:47 Blood Pressure 189/95 12/31/23 03:47 Pulse Oximetry 99 12/31/23 03:47 Oxygen Delivery Me thod Room Air 12/31/23 01:07 MDM - Recheck/Abnormal Lab/Rx Medical Decision Making Physical exam completed and documented we will obtain a CBC and CMP, IV access as well as IV insulin and will reevaluate the patient's blood glucose. I will provide her IV antihypertensive medications to control her uncontrolled hypertension. Medical Records I reviewed the patient's medical records. Lab Data I reviewed the patient's lab results. 12/31/23 01:24 12/31/23:24 Laboratory Results WBC 10.92 10^3/uL (3.29-11.43) 12/31/23: RBC 4.37 10^6/uL (3.85-5.65) 12/31/23:24 Hgb 11.90 g/dL (11.27-16.99) 12/31/23:24 Hct 35.4 % (36-47) L 12/31/23:24 MCV 81.0 fl (85-98) L 12/31/23:24 MCH 27.2 pg (27-33) 12/31/23: MCHC 33.6 g/dL (30-55) 12/31/23: RDW 12.7 % (12.1-15.1) 12/31/23:24 Plt Count 373 10^3/cmm (157-399) 12/31/23: MPV 10.5 fL (7.4-10.4) H 12/31/23:24 Neut % (Auto) 68.8 % 12/31/23: Lymph % (Auto) 22.8 % 12/31/23: [place] % (Auto) 4.9 % 12/31/23: Eos % (Auto) 1.5 % 12/31/23: Baso % (Auto) 0.7 % 12/31/23: Neut # (Auto) 7.52 10^3/uL (1.8-7.7) 12/31/23:24 Lymph # (Auto) 2.5 10^3/uL (0.8-4.8) 12/31/23:24 [place] # (Auto) 0.5 10^3/uL (0.2-0.9) 12/31/23: Eos # (Auto) 0.2 10^3/uL (0.0-0.8) 12/31/23:24 Baso # (Auto) 0.1 10^3/uL (0.0-0.1) 12/31/23:24 Nucleated RBC % (auto) 0 % 03/16/24 01:24 Nucleated RBCs # 0.0 /100WBC 12/31/23 01:24 Sodium 125 mmol/L (136-145) L 12/31/23 01:24 Potassium 4.5 mmol/L (3.5-5.1) 12/31/23 01:24 Chloride 90 mmol/L (98-107) L 12/31/23 01:24 Carbon Dioxide 18 mmol/L (22-29) L 12/31/23 01:24 Anion Gap 21.5 (5-19) H 12/31/23 01:24 BUN 63 mg/dL (6-20) H 12/31/23 01:24 Creatinine 3.2 mg/dL (0.5-0.9) H 12/31/23 01:24 GFR Calculation 15.2 mL/min (90-130) L 12/31/23 01:24 Glucose 447 mg/dL (65-115) H 12/31/23 01:24 POC Glucose 331 mg/dL (70-110) H 12/31/23 02:30 Calculated Osmolality 297 mOsm/kg (285-295) H 12/31/23 01:24 Calcium 9.0 mg/dL (8.5-10.5) 12/31/23 01:24 Total Bilirubin 0.4 mg/dL (0.15-1.2) 12/31/23 01:24 AST 13 U/L (0-32) 12/31/23 01:24 ALT 11 U/L (0-33) 12/31/23 01:24 Alkaline Phosphatase 120 U/L (35-105) H 12/31/23 01:24 Total Protein 7.5 g/dL (6.6-8.7) 12/31/23 01:24 Albumin 3.9 g/dL (3.5-5.2) 12/31/23 01:24 Globulin 3.6 g/dL (1.3-4.6) 12/31/23 01:24 No radiology studies performed this visit Discharge Plan Discharge Patient Disposition: Home Clinical Impression: Hypertension, uncontrolled, Type 1 diabetes mellitus with hyperglycemia Condition: Stable Prescriptions: No Action ergocalciferol (vitamin D2) 2,000 unit tablet 2,000 unit PO DAILY (DME) lancets [BD Ultra Fine Lancets] 33 gauge misc See Rx Instructions .ROUTE .MEDSUPPLY Qty: 100 3RF Rx Instructions: two times daily duloxetine [Cymbalta] 60 mg capsule,delayed release(DR/EC) 60 mg PO DAILY Qty: 90 0RF Rx Instructions: take one capsule by mouth every day with the 30 mg duloxetine [Cymbalta] 30 mg capsule,delayed release(DR/EC) 30 mg PO DAILY Qty: 90 0RF Rx Instructions: take one capsule by mouth every day with the 60 mg (DME) diabetic shoes with 3 inserts See Rx Instructions .Route .MEDSUPPLY Qty: 1 0RF Rx Instructions: As directed to the Yuval Salomon metoprolol succinate 25 mg tablet extended release 24 hr 25 mg PO BID 90 Days Qty: 180 0RF hydralazine 25 mg tablet 25 mg PO BID 90 Days Qty: 180 0RF lisinopril 30 mg tablet 30 mg PO DAILY 90 Days Qty: 90 0RF (DME) FreeStyle [place] 2 Sensor Kit See Rx Instructions .Route Qty: 6 3RF Rx Instructions: Change every 14 days. (DME) FreeStyle [place] 2 [place] Misc See Rx Instructions .Route Qty: 1 0RF Rx Instructions: As directed (DME) pen needle, diabetic 32 gauge x 1/4 needle See Rx Instructions .ROUTE .MEDSUPPLY Qty: 100 3RF Rx Instructions: As directed atorvastatin 40 mg tablet See Rx Instructions .ROUTE .COMPLEX Qty: 60 11RF Dose Instruction: TAKE ONE TABLET BY MOUTH DAILY AT 5PM Rx Instructions: TAKE ONE TABLET BY MOUTH DAILY AT 5PM Humulin R U-500 (Conc) Kwikpen 500 unit/mL (3 mL) insulin pen See Rx Instructions .ROUTE .COMPLEX Qty: 48 1RF Dose Instruction: INJECT 40 UNITS SUBCUTANEOUSLY WITH BREAKFAST. INJECT 100 UNITS WITH LUNCH AND INJECT 100 UNITS WITH SUPPER (BULK) Rx Instructions: INJECT 40 UNITS SUBCUTANEOUSLY WITH BREAKFAST. INJECT 100 UNITS WITH LUNCH AND INJECT 100 UNITS WITH SUPPER (BULK) suvorexant 20 mg tablet 20 mg PO .daily at bedtime Qty: 30 2RF Rx Instructions: Take one tablet daily at bedtime; stop 10 mg dose amlodipine 10 mg tablet See Rx Instructions .ROUTE .COMPLEX Qty: 90 0RF Dose Instruction: Take 1 tablet by mouth once daily for 90 days Rx Instructions: Take 1 tablet by mouth once daily for 90 days Discharge Orders: Discharge ED (Routine); Ordered 12/31/23 Ordered By: Ryan Toribio Referrals: Joellen Hill FNP [Primary Care Provider] - Discharge Diet: Diabetic Discharge Activity: Resume usual activity Patient Instructions: Opioid Safety, Pain Management Activity Restrictions/Additional Instructions: Activity Restrictions/Additional Instructions: Thank you for choosing [facility] for your healthcare needs today. Please realize that you were seen in the Emergency Department and that we are providing you with an emergency medical screening exam and this may not be a complete and all inclusive of all the testing and or medical work-up that you may need to determine your ailment or severity of your illness. It is very important that you follow-up as instructed with your Primary care provider or Specialist for additional evaluation and to discuss your medical treatment plan. Coding Level of Care Code ED Mysql Dba for Leanna Lester
[2023-12-31 02:27] VITALS: BP 227/102
[2023-12-31] MEDS: cloNIDine 0.1 mg Tablet 0.200000000000000011 MG PO (02:27)
[2023-12-31] MEDS: metoprolol tartrate 1 mg/1 mL SDV 5 mL 5 MG IVP (02:27)
[2023-12-31 02:32] LABS: Glucose Point of Care 331 mg/dL (70-110)
[2023-12-31 03:47] VITALS: BP 189/95; PULSE 75; RESP 20; O2SAT 99
== END 2023-12-31 04:38 | disposition home or self-care (01) ==
PROVIDERS: Emergency Provider Internal Medicine; PCP Registered Nurse
DX: I10 Essential (primary) hypertension (principal); Z79.4 Long term (current) use of insulin; E10.65 Type 1 diabetes mellitus with hyperglycemia
CPT/HCPCS: 36415; 36416; 80053; 82962; 85025; 96374; 96375; 99284; J1815; J3490; J7030

== ENCOUNTER → 2024-03-22 11:22 | Outpatient (BNVA) | payer MEDICARE, MEDICAID, SELFPAY | PROVIDERS: PCP Registered Nurse; Visit Provider Nurse Practitioner Family | DX: N39.0 Urinary tract infection, site not specified (principal); E11.65 Type 2 diabetes mellitus with hyperglycemia; M79.601 Pain in right arm; R80.9 Proteinuria, unspecified; Z77.29 Contact with and (suspected) exposure to other hazardous substances; R30.0 Dysuria | CPT/HCPCS: 80053; 81000; 82043; 83036; 85025; 87086 ==

== ENCOUNTER 2024-04-06 14:04 | Observation (INO) | payer MEDICARE, MEDICAID, SELFPAY ==
[2024-04-06] VITALS (20 sets, daily range): BP systolic 163–230; BP diastolic 77–104; PULSE 79–92; RESP 16–20; TEMP 2.7–37.1; O2SAT 88–96; BMI 34.4
--- NOTE | 2024-04-06 14:07 | ECG_ITS ---
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 Measurements Intervals [place] Rate: 77 P: 55 [place]: 159 QRS: -34 QRSD: 86 T: 42 QT: 421 QTc: 479 Interpretive Statements SINUS RHYTHM WITH SINUS ARRHYTHMIA LEFT AXIS DEVIATION [QRS AXIS < -30] LOW QRS VOLTAGE IN EXTREMITY LEADS [QRS DEFLECTION < 0.5 mV IN LIMB LEADS] PATTERN CONSISTENT WITH PULMONARY DISEASE Compared to ECG 12/28/2022 10:46:03 Left-axis deviation now present Low QRS voltage now present Myocardial infarct finding no longer present T-wave abnormality no longer present Possible ischemia no longer present Electronically Signed On 04-07-2024 8:09:10 CDT by Joni Mejia M.D. [id number]
--- NOTE | 2024-04-06 14:08 | XR_ITS ---
WS: [id number] Exam: XR chest 1V portable [id number] Date/Time of Exam: 04/06/2024 2:47 PM Reason For Exam: chest pain Comparison 10/31/2021. There is cardiac enlargement with pulmonary vascular congestion suggesting CHF. Moderate LEFT basal p leural effusion noted with compressive atelectasis of the LEFT lower lobe. No pneumothorax. Right-nessa ed double lumen central line ends at the cavoatrial junction. Bony structures are intact. The mediast inum is normal in contour. XR/XR chest 1V portable [id number] IMPRESSION: 1. Cardiac enlargement with signs of congestive heart failure and left-sided pl eural effusion. There is compressive atelectasis and/or infiltrate in the LEFT lower lobe.
--- NOTE | 2024-04-06 14:22 | W.ED.CHESTPA ---
HPI - Chest Pain General: Chief Complaint: Chest Pain Stated Complaint: cp Time Seen by Provider: 04/06/24 14:07 Source: patient Mode of arrival: EMS History of Present Illness: 53-year-old female presents emergency room she is scheduled for dialysis today but she had increasing shortness of breath presented to the emergency room she has some moderate chest discomfort as well this all began late this morning. She was given nitro and aspirin and route by EMS which resolved her symptoms. She had increased swelling in her legs. She reports she is constantly short of breath. At time I seen the patient is not having any chest pain. She is supposed to be having a peritoneal catheter placed to transition to peritoneal dialysis. MD complaint: chest discomfort Onset (ago): hour(s) Onset: during rest Pain location: substernal Relieving factors: nothing Exacerbating factors: nothing Associated symptoms: Deny abdominal pain, diaphoresis, dyspnea, fever(s), leg edema, nausea, palpitations, sense of impending doom, syncope or vomiting Treatment prior to arrival: aspirin and nitroglycerin Review of Systems Const: Denies: fever(s) or diaphoresis Card: Denies: palpitations or syncope Resp: Denies: dyspnea GI: Denies: abdominal pain, nausea or vomiting : Denies: dysuria, urinary frequency or urinary urgency Musc: Denies: neck pain or back pain Skin/Breast: Denies: rash PFSH ED PFSH: Medical History Pleural effusion Anemia of chronic disease ESRD (end stage renal disease) PAD (peripheral artery disease) Diabetic neuropathy, type II diabetes mellitus Diabetic retinopathy Bereavement Major depressive disorder, recurrent, in partial remission Psychiatric care FH: total knee replacement left Uncontrolled type 2 diabetes mellitus Essential hypertension HLA B27 (HLA B27 positive) High risk medication use Inflammatory arthritis Seronegative spondyloarthropathy Chronic insomnia See subjective note below. Chronic pain See subjective note below. Chronic post-traumatic stress disorder (PTSD) Generalized anxiety disorder Major depressive disorder, recurrent, moderate Surgical History History of cataract extraction History of hysterectomy for benign disease History of tonsillectomy History of appendectomy History of left knee replacement Family History Mother Hypertension Diabetes Psychiatric illness Thyroid disease Father , in his 50's Family history of premature coronary artery disease Hyperlipidemia Myocardial infarction Brother Hypertension Sister No problems noted. Denies family history of Rheumatoid arthritis Lupus Social History Smoking and tobacco/nicotine status: never used tobacco/nicotine Second hand smoke exposure: No Alcohol intake: never Substance/Drug Use: never Adopted: No Caregiver/support person: No Lives independently: No Household members: family service: No Current occupational status: unemployed and disabled Sexually active: Yes Do you think of yourself as: Straight/Heterosexual Current gender identity: Female Physical Exam Const: COMMON NORMALS: no acute distress GENERAL APPEARANCE: cooperative ORIENTATION/CONSCIOUSNESS: Yes awake, Yes oriented to person, Yes oriented to place and Yes oriented to time HENMT: COMMON NORMALS: normocephalic, atraumatic and hearing grossly normal bilaterally HEAD & SCALP: normocephalic and atraumatic Resp: COMMON NORMALS: normal respiratory effort, No retractions and No use of accessory muscles AUSCULTATION: crackles Cardio: COMMON NORMALS: regular rate, regular rhythm and No murmurs present (Cardio) RATE: regular rate RHYTHM: regular rhythm GI: COMMON NORMALS: Soft to palpation and No hepatosplenomegaly present AUSCULTATION: Yes normoactive bowel sounds PALPATION: Yes Soft to palpation, No Tenderness to palpation present (GI), No Guarding due to palpation present (GI) and Yes No hepatosplenomegaly present Extremity: COMMON NORMALS: normal to inspection, capillary refill normal, no clubbing, cyanosis or edema, no calf tenderness and no pedal edema Neuro: SENSORIUM/ORIENTATION: Yes oriented to person, Yes oriented to place and Yes oriented to time Skin: COMMON NORMALS: no rashes or lesions noted GENERAL SKIN EXAM: no rashes or lesions noted Course Vital Signs: Vital signs: Vital Signs Temperature 98.3 F 04/09/24 13:17 Pulse Rate 70 04/09/24 13:17 Respiratory Rate 18 04/09/24 13:17 Blood Pressure 125/75 04/09/24 13:17 Pulse Oximetry 95 04/09/24 13:17 Oxygen Delivery Me thod Room Air 04/09/24 12:00 Oxygen Flow Rate 2 04/09/24 08:00 MDM - Chest Pain Medical Decision Making Patient is anemic with initial hemoglobin of 7.8 your white count is rosemarie. She has signs of congestive heart failure with possible infiltrate at the left lower lobe. CT was done when showed large bilateral pleural effusions possible infiltrates. Discussed with hospitalist will initiate antibiotics admit consult nephrology. Type and cross, plan to transfuse 1 unit packed red blood cells Medical Records I reviewed the patient's medical records. Lab Data I reviewed the patient's lab results. 04/09/24 04:29 04/09/24 04:29 Radiology Impressions Chest X-Ray 04/06/24 14:08 IMPRESSION: 1. Cardiac enlargement with signs of congestive heart failure and left-sided pleural effusion. There is compressive atelectasis and/or infiltrate in the LEFT lower lobe. Chest CTA 04/06/24 17:02 IMPRESSION: 1. Negative for pulmonary embolus. 2. Large bilateral pleural effusions. 3. Scattered subcentimeter short axis nonspecific mediastinal lymph nodes. 4. Cardiomegaly. 5. Coronary artery atherosclerotic calcifications. 6. Cholelithiasis. 7. Patchy bilateral ground-glass airspace opacities suggestive of alveolar edema and/or pneumonic infiltrates with bilateral dependent airspace consolidations. 8. Right central venous catheter tip in the superior vena cava approaching the atrial caval junction. Laboratory Results WBC 6.60 10^3/uL (3.29-11.43) 04/06/24 14:12 RBC 2.85 10^6/uL (3.85-5.65) L 04/06/24 14:12 Hgb 7.80 g/dL (11.27-16.99) L 04/06/24 14:12 Hct 23.9 % (36-47) L 04/06/24 14:12 MCV 83.9 fl (85-98) L 04/06/24 14:12 MCH 27.4 pg (27-33) 04/06/24 14:12 MCHC 32.6 g/dL (30-55) 04/06/24 14:12 RDW 13.0 % (12.1-15.1) 04/06/24 14:12 Plt Count 337 10^3/cmm (157-399) 04/06/24 14:12 MPV 10.8 fL (7.4-10.4) H 04/06/24 14:12 Neut % (Auto) 58.3 % 04/06/24 14:12 Lymph % (Auto) 31.7 % 04/06/24 14:12 [place] % (Auto) 6.8 % 04/06/24 14:12 Eos % (Auto) 1.8 % 04/06/24 14:12 Baso % (Auto) 0.5 % 04/06/24 14:12 Neut # (Auto) 3.85 10^3/uL (1.8-7.7) 04/06/24 14:12 Lymph # (Auto) 2.1 10^3/uL (0.8-4.8) 04/06/24 14:12 [place] # (Auto) 0.5 10^3/uL (0.2-0.9) 04/06/24 14:12 Eos # (Auto) 0.1 10^3/uL (0.0-0.8) 04/06/24 14:12 Baso # (Auto) 0.0 10^3/uL (0.0-0.1) 04/06/24 14:12 Nucleated RBC % (auto) 0 % 04/06/24 14:12 Nucleated RBCs # 0.0 /100WBC 04/06/24 14:12 Sodium 134 mmol/L (136-145) L 04/06/24 14:12 Potassium 3.6 mmol/L (3.5-5.1) 04/06/24 14:12 Chloride 93 mmol/L (98-107) L 04/06/24 14:12 Carbon Dioxide 26 mmol/L (22-29) 04/06/24 14:12 Anion Gap 18.6 (5-19) 04/06/24 14:12 BUN 20 mg/dL (6-20) 04/06/24 14:12 Creatinine 3.4 mg/dL (0.5-0.9) H 04/06/24 14:12 GFR Calculation 14.1 mL/min (90-130) L 04/06/24 14:12 Glucose 238 mg/dL (65-115) H 04/06/24 14:12 Calculated Osmolality 288 mOsm/kg (285-295) 04/06/24 14:12 Calcium 8.5 mg/dL (8.5-10.5) 04/06/24 14:12 Total Bilirubin 0.4 mg/dL (0.15-1.2) 04/06/24 14:12 AST 19 U/L (0-32) 04/06/24 14:12 ALT 11 U/L (0-33) 04/06/24 14:12 Alkaline Phosphatase 83 U/L (35-105) 04/06/24 14:12 Troponin T Baseline 100 ng/L (0-10) H 04/06/24 14:12 Troponin T 120 Minute 98.18 ng/L (0-10) H 04/06/24 16:19 Delta Troponin T -1.82 ABS# (0-10) L 04/06/24 16:19 Total Protein 6.1 g/dL (6.6-8.7) L 04/06/24 14:12 Albumin 3.3 g/dL (3.5-5.2) L 04/06/24 14:12 Globulin 2.8 g/dL (1.3-4.6) 04/06/24 14:12 Urine Color Yellow (Yellow) 04/06/24 14:55 Urine Appearance Cloudy (CLEAR) A 04/06/24 14:55 Urine pH 8 (5-7) H 04/06/24 14:55 Ur Specific [place] 1.015 (1.005-1.030) 04/06/24 14:55 Urine Protein 2+ (Negative) H 04/06/24 14:55 Urine Glucose (UA) 4+ (Normal) H 04/06/24 14:55 Urine Ketones 1+ (Negative) H 04/06/24 14:55 Urine Blood Neg (Negative) 04/06/24 14:55 Urine Nitrate Negative (Negative) 04/06/24 14:55 Urine Bilirubin Neg (Negative) 04/06/24 14:55 Urine Urobilinogen Norm mg/dL (Negative) 04/06/24 14:55 Ur Leukocyte Esterase 1+ (Negative) H 04/06/24 14:55 Urine RBC None /hpf (0-2) 04/06/24 14:55 Urine WBC 51-100 /hpf (0-5) 04/06/24 14:55 Ur Squamous Epith Cells 5-10 /hpf (0-5) H 04/06/24 14:55 Amorphous Sediment Not Reportable 04/06/24 14:55 Urine Bacteria 1+ /hpf (NONE) H 04/06/24 14:55 All radiology interpretation(s) finalized by discharge Discharge Plan Discharge Patient Disposition: Admitted As Inpatient Admit Provider: Winter Wang Clinical Impression: Pneumonia, ESRD (end stage renal disease) on dialysis, CHF (congestive heart failure), Anemia Condition: Stable Discharge Diet: Cardiac Discharge Activity: Increase activity as tolerated Coding Level of Care Code ED Personal Injury Litigation Paralegal for Leanna Lester
[2024-04-06 14:29] LABS: Basophils % 0.5 %; Eosinophils # 0.1 10^3/uL (0.0-0.8); Eosinophils % 1.8 %; Hematocrit 23.9 % (36-47); Lymphocytes # 2.1 10^3/uL (0.8-4.8); Lymphocytes % 31.7 %; Mean Corpuscular HGB Conc 32.6 g/dL (30-55); Mean Corpuscular Hemoglobin 27.4 pg (27-33); Mean Corpuscular Volume 83.9 fl (85-98); Mean Platelet Volume 10.8 fL (7.4-10.4); Monocytes # 0.5 10^3/uL (0.2-0.9); Monocytes % 6.8 %; Neutrophils # 3.85 10^3/uL (1.8-7.7); Neutrophils % 58.3 %; Nucleated Red Blood Cells % 0 %; Platelet Count 337 10^3/cmm (157-399); Red Blood Count 2.85 10^6/uL (3.85-5.65)
[2024-04-06 14:56] LABS: Troponin(5th) Baseline 100 ng/L (0-10)
[2024-04-06 14:57] LABS: Alanine Aminotransferase 11 U/L (0-33); Albumin Level 3.3 g/dL (3.5-5.2); Alkaline Phosphatase 83 U/L (35-105); Anion Gap 18.6 (5-19); Aspartate Amino Transferase 19 U/L (0-32); Blood Urea Nitrogen 20 mg/dL (6-20); Calcium 8.5 mg/dL (8.5-10.5); Carbon Dioxide 26 mmol/L (22-29); Chloride 93 mmol/L (98-107); Globulin 2.8 g/dL (1.3-4.6); Glomerular Filtration Rate 14.1 mL/min (90-130); Glucose 238 mg/dL (65-115); Osmolality Calculated 288 mOsm/kg (285-295); Potassium 3.6 mmol/L (3.5-5.1); Sodium 134 mmol/L (136-145); Total Bilirubin 0.4 mg/dL (0.15-1.2); Total Protein 6.1 g/dL (6.6-8.7)
[2024-04-06 15:09] LABS: Add Urine Microscopic? YES; Bilirubin Urine Neg (Negative); Blood Urine Neg (Negative); Glucose Urine UA 4+ (Normal); Ketones Urine 1+ (Negative); Leukocyte Esterase Urine 1+ (Negative); Nitrate Urine Negative (Negative); Protein Urine 2+ (Negative); Specific Gravity, Urine 1.015 (1.005-1.030); Urine Appearance Cloudy (CLEAR); Urine Color Yellow (Yellow); Urobilinogen Urine Norm (Negative); pH Urine 8 (5-7)
[2024-04-06 15:41] LABS: Add Urine Culture? Yes; Bacteria Urine 1+ /hpf; WBC Urine 51-100 /hpf (0-5)
--- NOTE | 2024-04-06 16:09 | ECG_ITS ---
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 Measurements Intervals [place] Rate: 76 P: 47 [place]: 168 QRS: -35 QRSD: 96 T: 41 QT: 435 QTc: 489 Interpretive Statements SINUS RHYTHM LEFT AXIS DEVIATION [QRS AXIS < -30] LOW QRS VOLTAGE IN EXTREMITY LEADS [QRS DEFLECTION < 0.5 mV IN LIMB LEADS] PATTERN CONSISTENT WITH PULMONARY DISEASE Compared to ECG 04/06/2024 14:07:09 Sinus arrhythmia no longer present Electronically Signed On 04-07-2024 8:10:45 CDT by Joni Mejia M.D. [id number]
[2024-04-06 16:45] LABS: Troponin 5 2HR 98.18 ng/L (0-10)
[2024-04-06 16:46] LABS: Troponin 5 2HR Delta -1.82 ABS# (0-10)
--- NOTE | 2024-04-06 17:02 | CTR_ITS ---
PROCEDURE INFORMATION: Exam: CTA Chest With Contrast Exam date and time: 04/06/2024 5:26 PM Age: 53 years old Clinical indication: Pain; Shortness of breath; Chest pressure; Prior surgery; Surgery date: 1-6 months; Surgery type: Dialysis catheter; Additional info: Pleural effusion TECHNIQUE: Imaging protocol: Computed tomographic angiography of the chest with contrast. Exam focused on the arteries. 3D rendering (Not supervised by radiologist): MIP and/or 3D reconstructed images were created by the technologist. Radiation optimization: All CT scans at this facility use at least one of these dose optimization techniques: automated exposure control; mA and/or kV adjustment per patient size (includes targeted exams where dose is matched to clinical indication); or iterative reconstruction. Contrast material: OMNI 350; Contrast volume: 74 ml; Contrast route: INTRAVENOUS (IV); COMPARISON: CR XR chest 1V portable [id number] 04/06/2024 2:42 PM RADIATION DOSE METRICS: Total DLP (mGy-cm): 414.09 FINDINGS: Tubes, catheters and devices: Right central venous catheter tip in the superior vena cava approaching the atrial caval junction. Pulmonary arteries: Normal. No pulmonary emboli. Aorta: Unremarkable. No aortic aneurysm. No aortic dissection. Lungs: Patchy bilateral ground-glass airspace opacities suggestive of alveolar edema and/or pneumonic infiltrates with bilateral dependent airspace consolidations. Pleural spaces: Large bilateral pleural effusions. Heart: Cardiomegaly. Coronary arteries: Coronary artery atherosclerotic calcifications. Lymph nodes: Scattered subcentimeter short axis nonspecific mediastinal lymph nodes. Gallbladder and biliary ducts: Cholelithiasis. Bones/joints: Unremarkable. No acute fracture. Soft tissues: Unremarkable. CT/CT angio chest PE protcl [id number] IMPRESSION: 1. Negative for pulmonary embolus. 2. Large bilateral pleural effusions. 3. Scattered subcentimeter short axis nonspecific mediastinal lymph nodes. 4. Cardiomegaly. 5. Coronary artery atherosclerotic calcifications. 6. Cholelithiasis. 7. Patchy bilateral ground-glass airspace opacities suggestive of alveolar edema and/or pneumonic infiltrates with bilateral dependent airspace consolidations. 8. Right central venous catheter tip in the superior vena cava approaching the atrial caval junction.
[2024-04-06] MEDS: iohexol 350 mg/mL 500 mL Btl (per mL) IV (17:27)
--- NOTE | 2024-04-06 17:46 | P.HP_ITS ---
Providers/Chief Complaint 2 Primary Care Provider: SEGUN Mulligan Chief Complaint: cp History of Present Illness Lizy Evans is a 53 year old female who recently started dialysis, in the process of getting peritoneal drain in place to start peritoneal dialysis, suffer from diabetes related end-stage renal disease, Tuesday, presented today with chief plaint worsening shortness of breath. Patient stating that she missed her dialysis session today because she was extremely short of breath. She has not noticed any fever, nausea vomiting but endorsing chest pain which she describing as heaviness. In the ER her hemoglobin is 10.8, nephro consulted she will get 1 unit PRBC, plan for dialysis today Chest x-ray consistent with pneumonia and vascular congestion,, CT report is pending as well Patient does make urine Review of Systems 2 Const: Reports: chills and fatigue; Denies: fever(s) Eyes: Denies: change in vision ENMT: Denies: throat pain Card: Reports: chest pain; Denies: swelling of feet/ankles Resp: Reports: dyspnea GI: Denies: abdominal pain : Denies: flank pain Musc: Denies: neck pain Medications/Allergies Home Medications Medication Instructions Recorded Confirmed Last Taken Type lancets 33 gauge (BD Ultra Fine #100 ea 12/05/19 03/22/24 Unknown Rx Lancets) flash glucose scanning reader #1 ea 05/29/21 03/22/24 Unknown Rx (FreeStyle Pal[place] 2 [place]) pen needle, diabetic 32 gauge x #100 ea 04/04/23 03/22/24 Unknown Rx 1/4 atorvastatin 40 mg tablet See Rx Instructions .Route 06/08/23 03/22/24 Unknown Rx .COMPLEX #60 tabs diabetic shoes with 3 inserts #1 ea 08/22/23 03/22/24 Unknown Rx flash glucose sensor (FreeStyle #6 ea 12/12/23 03/22/24 Unknown Rx Palak 2 Sensor kit) metoprolol succinate 25 mg 25 mg PO BID 90 days #180 tabs 01/09/24 03/22/24 Unknown Rx tablet,extended release 24 hr amlodipine 10 mg tablet See Rx Instructions .Route 01/26/24 03/22/24 Unknown Rx .COMPLEX #90 tabs hydralazine 25 mg tablet See Rx Instructions .Route 01/26/24 03/22/24 Unknown Rx .COMPLEX #180 tabs lisinopril 30 mg tablet See Rx Instructions .Route 01/26/24 03/22/24 Unknown Rx .COMPLEX #90 tabs suvorexant 20 mg tablet (Belsomra) 20 mg PO .qhs #30 tabs 02/01/24 03/22/24 Unknown Rx diphenhydramine HCl 25 mg capsule 25 mg PO TID 02/06/24 03/22/24 Unknown History (Benadryl) duloxetine 60 mg capsule,delayed 60 mg PO DAILY #90 caps 02/06/24 03/22/24 Unknown Rx release (Cymbalta) famotidine 20 mg tablet (Pepcid AC) 20 mg PO DAILY 02/06/24 03/22/24 Unknown History ciprofloxacin HCl 500 mg tablet 500 mg PO BID 7 days #14 tabs 03/22/24 03/22/24 Unknown Rx fluconazole 150 mg tablet 150 mg PO Q3D 2 doses #2 tabs 03/22/24 03/22/24 Unknown Rx ondansetron HCl 4 mg tablet 4 mg PO Q8H PRN nausea and 03/22/24 03/22/24 Unknown Rx vomiting #10 tabs insulin regular hum U-500 conc 500 See Rx Instructions .Route 03/30/24 Unknown Rx unit/mL(3 mL) subcut pen (Humulin .COMPLEX #48 mL R U-500 (Conc) Insulin Kwikpen) Allergies Allergy/AdvReac Type Severity Reaction Status Date / Time venom-honey bee Allergy Severe ALGY-Redness Verified 03/22/24 09:40 of Skin codeine AdvReac Severe ADR-Vomitin Verified 03/22/24 09:40 g morphine AdvReac Severe ADR-Vomitin Verified 03/22/24 09:40 g propoxyphene AdvReac Severe ADR-Vomitin Verified 03/22/24 09:40 [From Darvocet-N] g latex AdvReac Intermediate ALGY-Rash Verified 03/22/24 09:40 PFSH Acute 2 PFSH: Medical History Bereavement Major depressive disorder, recurrent, in partial remission Psychiatric care FH: total knee replacement left Uncontrolled type 2 diabetes mellitus Essential hypertension HLA B27 (HLA B27 positive) High risk medication use Inflammatory arthritis Seronegative spondyloarthropathy Chronic insomnia See subjective note below. Chronic pain See subjective note below. Chronic post-traumatic stress disorder (PTSD) Generalized anxiety disorder Major depressive disorder, recurrent, moderate Surgical History History of cataract extraction History of hysterectomy for benign disease History of tonsillectomy History of appendectomy History of left knee replacement Family History Mother Hypertension Diabetes Psychiatric illness Thyroid disease Father , in his 50's Family history of premature coronary artery disease Hyperlipidemia Myocardial infarction Brother Hypertension Sister No problems noted. Denies family history of Rheumatoid arthritis Lupus Social History Smoking and tobacco/nicotine status: never used tobacco/nicotine Second hand smoke exposure: No Alcohol intake: never Substance/Drug Use: never Adopted: No Caregiver/support person: No Lives independently: No Household members: family service: No Current occupational status: unemployed and disabled Sexually active: Yes Do you think of yourself as: Straight/Heterosexual Current gender identity: Female Vitals/I&O/Wt Last Vital Signs Temp 98.2 F 04/06/24 14:08 Pulse 84 04/06/24 17:18 Resp 20 H 04/06/24 17:18 BP 202/102 04/06/24 17:18 Pulse Ox 94 04/06/24 17:18 O2 Del Method Room Air 04/06/24 17:18 Weight last 48 hrs Weight 91.172 kg Physical Exam 2 Narrative: Signs of fluid overload Crackles positive on auscultation currently on room air Hypertensive Sinus rhythm Pleasant cooperative Nonfocal neuroexam S1, S2 No acute distress No active chest pain Data 04/06/24 14:12 04/06/24 14:12 A&P Assessment and plan (1) Generalized anxiety disorder: (2) Essential hypertension: (3) PAD (peripheral artery disease): (4) Uncontrolled type 2 diabetes mellitus: Qualifiers: Glycemic state: with hyperglycemia Qualified Code(s): E11.65 - Type 2 diabetes mellitus with hyperglycemia (5) Diabetic neuropathy, type II diabetes mellitus: Qualifiers: Diabetes mellitus half-way insulin use: with terminal operations manager use Qualified Code(s): E11.40 - Type 2 diabetes mellitus with diabetic neuropathy, unspecified; Z79.4 - watermaster (current) use of insulin (6) Diabetic retinopathy: (7) HLA B27 (HLA B27 positive): (8) ESRD (end stage renal disease): (9) Anemia of chronic disease: Plan Anemia of chronic disease Will give her 1 unit PRBC Show renal disease Tuesday She recently started dialysis last Tuesday Consulted nephro She will need dialysis today Volume overload related to end-stage renal disease No previous history of cardiac stents or FL/CHF Community-acquired pneumonia Continue ceftriaxone azithromycin Afebrile Currently on room air Full code Renal diet DVT prophylaxis: SCDs Attestations 2 Medical Necessity Statement*: Anticipating discharge within 48 hours Diagnoses Generalized anxiety disorder F41.1 Essential hypertension I10 PAD (peripheral artery disease) I73.9 Uncontrolled type 2 diabetes mellitus with hyperglycemia E11.65 Glycemic state: with hyperglycemia Type 2 diabetes mellitus with diabetic neuropathy, with long-term current use of insulin E11.40; Z79.4 Diabetes mellitus half-way insulin use: with terminal operations manager use Diabetic retinopathy E11.319 HLA B27 (HLA B27 positive) Z15.89 ESRD (end stage renal disease) N18.6 Anemia of chronic disease D63.8
[2024-04-06] MEDS: labetalol 5 mg/mL SDV 20mL 10 MG IVP (17:53)
[2024-04-06] MEDS: hyDRALAzine 20 mg/mL INJ 1 mL 10 MG IVP ×2 (17:54→22:38)
--- NOTE | 2024-04-06 20:02 | PC.HD ---
Consent signed. Heparin 1000 units loading dose administered via HD catheter at 1941 per fagot heater helper's orders. .
[2024-04-06 20:43] LABS: Troponin 5 6HR 92.63 ng/L (0-10); Troponin 5 6HR Delta -7.37 ng/L (0-12)
--- NOTE | 2024-04-06 20:47 | PC.RESP ---
Patient not in room for EKG @ 2009
[2024-04-06 20:57] LABS: Hepatitis B Surface AB < 3.5 (11.5-1000); Hepatitis B Surface Antigen Non-Reactive (Nonreactive)
--- NOTE | 2024-04-06 21:14 | P.CONIM_ITS ---
Providers/Reason For Consult 2 Consulting Physician/Specialty*: kommana/Nephrology Reason for Consult*: ESRD Attending Physician: Winter Wang MD Primary Care Provider: SEGUN Mulligan History of Present Illness History of Present Illness Lizy Evans is a 53 year old female With past medical history of hypertension, end-stage renal disease on dialysis per Tuesday currently in the process of switching to peritoneal dialysis, presenting to the emergency department after missing dialysis on complaining of shortness of breath. Chest x-ray showed pulmonary edema and evidence of pneumonia. In the ER lab data significant for hemoglobin of 7.8. Sodium was 134. Review of Systems 2 Narrative: OTHER ROS NEGATIVE Medications/Allergies Home Medications Medication Instructions Recorded Confirmed Last Taken Type lancets 33 gauge (BD Ultra Fine #100 ea 12/05/19 04/06/24 Unknown Rx Lancets) flash glucose scanning reader #1 ea 05/29/21 04/06/24 Unknown Rx (FreeStyle Palak 2 [place]) pen needle, diabetic 32 gauge x #100 ea 04/04/23 04/06/24 Unknown Rx 1/4 atorvastatin 40 mg tablet See Rx Instructions .Route 06/08/23 04/06/24 Unknown Rx .COMPLEX #60 tabs diabetic shoes with 3 inserts #1 ea 08/22/23 04/06/24 Unknown Rx flash glucose sensor (FreeStyle #6 ea 12/12/23 04/06/24 Unknown Rx Palak 2 Sensor kit) metoprolol succinate 25 mg 25 mg PO BID 90 days #180 tabs 01/09/24 04/06/24 Unknown Rx tablet,extended release 24 hr amlodipine 10 mg tablet See Rx Instructions .Route 01/26/24 04/06/24 Unknown Rx .COMPLEX #90 tabs diphenhydramine HCl 25 mg capsule 25 mg PO TID 02/06/24 04/06/24 Unknown History (Benadryl) duloxetine 60 mg capsule,delayed 60 mg PO DAILY #90 caps 02/06/24 04/06/24 Unknown Rx release (Cymbalta) famotidine 20 mg tablet (Pepcid AC) 20 mg PO DAILY 02/06/24 04/06/24 Unknown History ondansetron HCl 4 mg tablet 4 mg PO Q8H PRN nausea and 03/22/24 04/06/24 Unknown Rx vomiting #10 tabs insulin regular hum U-500 conc 500 See Rx Instructions .Route 03/30/24 04/06/24 Unknown Rx unit/mL(3 mL) subcut pen (Humulin .COMPLEX #48 mL R U-500 (Conc) Insulin Kwikpen) hydralazine 100 mg tablet 100 mg PO Q8H 04/06/24 04/06/24 Unknown History omeprazole 20 mg capsule,delayed 20 mg PO DAILY 04/06/24 04/06/24 Unknown History release sevelamer carbonate 800 mg tablet 800 mg PO TIDWM 04/06/24 04/06/24 Unknown History sodium bicarbonate 650 mg tablet 650 mg PO TID 04/06/24 04/06/24 Unknown History Allergies Allergy/AdvReac Type Severity Reaction Status Date / Time venom-honey bee Allergy Severe ALGY-Redness Verified 03/22/24 09:40 of Skin marijuana (cannabis) Allergy Intermediate ADR-Nausea Verified 04/06/24 23:27 codeine AdvReac Severe ADR-Vomitin Verified 03/22/24 09:40 g morphine AdvReac Severe ADR-Vomitin Verified 03/22/24 09:40 g propoxyphene AdvReac Severe ADR-Vomitin Verified 03/22/24 09:40 [From Darvocet-N] g latex AdvReac Intermediate ALGY-Rash Verified 03/22/24 09:40 PFSH Acute 2 PFSH: Medical History Bereavement Major depressive disorder, recurrent, in partial remission Psychiatric care FH: total knee replacement left Uncontrolled type 2 diabetes mellitus Essential hypertension HLA B27 (HLA B27 positive) High risk medication use Inflammatory arthritis Seronegative spondyloarthropathy Chronic insomnia See subjective note below. Chronic pain See subjective note below. Chronic post-traumatic stress disorder (PTSD) Generalized anxiety disorder Major depressive disorder, recurrent, moderate Surgical History History of cataract extraction History of hysterectomy for benign disease History of tonsillectomy History of appendectomy History of left knee replacement Family History Mother Hypertension Diabetes Psychiatric illness Thyroid disease Father , in his 50's Family history of premature coronary artery disease Hyperlipidemia Myocardial infarction Brother Hypertension Sister No problems noted. Denies family history of Rheumatoid arthritis Lupus Social History Smoking and tobacco/nicotine status: never used tobacco/nicotine Second hand smoke exposure: No Alcohol intake: never Substance/Drug Use: never Adopted: No Caregiver/support person: No Lives independently: No Household members: family service: No Current occupational status: unemployed and disabled Sexually active: Yes Do you think of yourself as: Straight/Heterosexual Current gender identity: Female Vitals/I&O/Wt Last Vital Signs Temp 97.7 F 04/06/24 20:01 Pulse 81 04/06/24 20:01 Resp 18 04/06/24 20:01 BP 168/82 04/06/24 20:01 Pulse Ox 94 04/06/24 17:18 O2 Del Method Room Air 04/06/24 17:18 Weight last 48 hrs Weight 91.172 kg Physical Exam 2 Narrative: awake , alert No distress S1S2 RRR per report Lungs clearper report No edema Data 04/07/24 04:40 04/07/24 04:40 A&P Assessment and plan (1) ESRD (end stage renal disease): 1. End-stage renal disease: On MWF schedule, patient in the process of switching to peritoneal dialysis. Use tunneled catheter and will do HD today ultrafiltration as tolerated 2. History of hypertension 3. Anemia: Plan for transfusion 4. Hyponatremia: Mild, monitor Patient evaluated using cardiology. Time spent 40 minutes Consult Attestations 2 Medical Necessity Statement: per shona Coding Level of Care Code Acute Code for Chg Fwd Diagnoses ESRD (end stage renal disease) N18.6
[2024-04-06] MEDS: metoprolol succinate ER (24 HR) 25 mg Tablet PO (21:44)
[2024-04-06] MEDS: hyDRALAzine 25 mg Tablet PO (21:44)
[2024-04-06] MEDS: azithromycin 250 mg Tablet 500 MG PO (21:45)
--- NOTE | 2024-04-06 21:49 | PC.NURSE ---
Upon admission from ER, pt was taken to dialysis. Pt received blood transfusion via dialysis nurse. Pt remains in dialysis at this time.
--- NOTE | 2024-04-06 22:52 | PC.NURSE ---
Pt received PRBC per dialysis started at 2102 end time 2145. No AR or SE present. Pt tolerated infusion w/o difficulty.
[2024-04-06] MEDS: cefTRIAXone 1,000 MG in sodium chloride 0.9% (plus) 50 ML 100 MG IV (22:57)
[2024-04-06] MEDS: pantoprazole 40 mg SDV IVP (22:58)
[2024-04-07] VITALS (7 sets, daily range): BP systolic 136–195; BP diastolic 72–96; PULSE 73–98; RESP 14–19; TEMP 36.7–37.2; O2SAT 90–98
[2024-04-07] MEDS: labetalol 5 mg/mL SDV 20mL 10 MG IVP (04:00)
--- NOTE | 2024-04-07 05:04 | P.PN_ITS ---
Subjective 2 Subjective: Patient has remained hypertensive Dialysis was done Status post 1 unit PRBC CBC is pending No active chest pain or shortness of breath Hypertensive Currently on 2 L Vitals/I&O/Wt Last Vital Signs Temp 98.9 F 04/07/24 03:00 Pulse 98 04/07/24 03:00 Resp 19 H 04/07/24 03:00 BP 195/96 04/07/24 03:00 Pulse Ox 96 04/07/24 03:00 O2 Del Method Nasal Cannula 04/07/24 03:00 O2 Flow Rate 2 04/07/24 03:00 04/06/24 04/06/24 04/07/24 14:59 22:59 06:59 Intake Total 770 / 770 50 / 820 Output Total 2860 / 2860 Balance -209 / -0 50 / -2040 Weight last 48 hrs Weight 92.278 kg Weight 90.7 kg Weight 91.172 kg Physical Exam 2 Narrative: Pleasant cooperative Sign of fluid overload present Hypertension Currently on 2 L nonfocal neuroexam No active chest pain Abdomen soft Data 04/06/24 14:12 04/06/24 14:12 A&P Assessment and plan (1) Generalized anxiety disorder: (2) Essential hypertension: (3) PAD (peripheral artery disease): (4) Uncontrolled type 2 diabetes mellitus: Qualifiers: Glycemic state: with hyperglycemia Qualified Code(s): E11.65 - Type 2 diabetes mellitus with hyperglycemia (5) Diabetic retinopathy: (6) ESRD (end stage renal disease): (7) Anemia of chronic disease: Plan Hypertensive urgency Added hydralazine to home regimen of amlodipine and lisinopril Anemia of chronic disease status post 1 unit PRBC noted GI bleed End-stage renal disease Tuesday Kira Benoit consulted Acute hypoxia requiring 2 L related to pulmonary edema Adjust antihypertensive regimen Insulin sliding scale Renal diabetic dialysis diet Patient will stay 1 more day in the hospital Full code Attestations 2 Medical Necessity Statement*: Continue medical management Diagnoses Generalized anxiety disorder F41.1 Essential hypertension I10 PAD (peripheral artery disease) I73.9 Uncontrolled type 2 diabetes mellitus with hyperglycemia E11.65 Glycemic state: with hyperglycemia Diabetic retinopathy E11.319 ESRD (end stage renal disease) N18.6 Anemia of chronic disease D63.8
[2024-04-07 05:11] LABS: Basophils % 0.5 %; Eosinophils # 0.1 10^3/uL (0.0-0.8); Eosinophils % 2.6 %; Hematocrit 28.3 % (36-47); Lymphocytes # 1.5 10^3/uL (0.8-4.8); Lymphocytes % 27.5 %; Mean Corpuscular HGB Conc 30.7 g/dL (30-55); Mean Corpuscular Hemoglobin 27.5 pg (27-33); Mean Corpuscular Volume 89.6 fl (85-98); Mean Platelet Volume 10.7 fL (7.4-10.4); Monocytes # 0.4 10^3/uL (0.2-0.9); Monocytes % 7.7 %; Neutrophils # 3.34 10^3/uL (1.8-7.7); Neutrophils % 60.8 %; Nucleated Red Blood Cells % 0 %; Platelet Count 207 10^3/cmm (157-399); Red Blood Count 3.16 10^6/uL (3.85-5.65); Red Cell Distribution Width 13.2 % (12.1-15.1); White Blood Count 5.49 10^3/uL (3.29-11.43)
[2024-04-07 05:34] LABS: Blood Urea Nitrogen 12 mg/dL (6-20); Calcium 8.2 mg/dL (8.5-10.5); Carbon Dioxide 23 mmol/L (22-29); Chloride 99 mmol/L (98-107); Glomerular Filtration Rate 21.1 mL/min (90-130); Glucose 232 mg/dL (65-115); Magnesium 1.9 mg/dL (1.7-2.3); Osmolality Calculated 289 mOsm/kg (285-295); Sodium 136 mmol/L (136-145)
[2024-04-07 05:40] LABS: Anion Gap 17.6 (5-19); Potassium 3.6 mmol/L (3.5-5.1)
[2024-04-07 05:52] LABS: Glucose Point of Care 225 mg/dL (70-110)
[2024-04-07] MEDS: insulin lispro 100 unit/1 mL SUBCUT ×3 (09:05→18:33)
[2024-04-07] MEDS: azithromycin 250 mg Tablet 500 MG PO (09:06)
[2024-04-07] MEDS: metoprolol succinate ER (24 HR) 25 mg Tablet PO ×2 (09:06→17:32)
[2024-04-07] MEDS: sennosides-docusate Tablet 1 TAB PO (09:06)
[2024-04-07] MEDS: amlodipine 10 mg Tablet PO (09:06)
[2024-04-07] MEDS: pantoprazole 40 mg SDV IVP ×2 (09:06→17:32)
[2024-04-07] MEDS: hyDRALAzine 25 mg Tablet 50 MG PO ×2 (09:06→17:32)
[2024-04-07] MEDS: lisinopril 10 mg Tablet 30 MG PO (09:06)
[2024-04-07 11:05] LABS: Glucose Point of Care 184 mg/dL (70-110)
--- NOTE | 2024-04-07 14:23 | P.PN_ITS ---
Subjective 2 Subjective: no new c/o Medications: Reviewed: Yes Vitals/I&O/Wt Last Vital Signs Temp 98.4 F 04/07/24 11:29 Pulse 77 04/07/24 11:29 Resp 16 04/07/24 11:29 BP 148/72 04/07/24 11:29 Pulse Ox 90 04/07/24 11:29 O2 Del Method Nasal Cannula 04/07/24 11:29 O2 Flow Rate 2 04/07/24 11:29 04/06/24 04/07/24 04/07/24 22:59 06:59 14:59 Intake Total 770 / 770 170 / 940 680 / 680 Output Total 2860 / 2860 Balance -2090 / -2090 170 / -1920 680 / 680 Weight last 48 hrs Weight 92.669 kg Weight 92.278 kg Weight 90.7 kg Weight 91.172 kg Physical Exam 2 Narrative: awake , alert No distress S1S2 RRR per report Lungs clearper report No edema Data 04/07/24 04:40 04/07/24 04:40 Micro: Microbiology 04/06/24 14:55 Urine Culture - Preliminary Urine,Clean Catch A&P Assessment and plan (1) ESRD (end stage renal disease): 1. End-stage renal disease: On MWF schedule, patient in the process of switching to peritoneal dialysis. hd done yesterday 2. History of hypertension 3. Anemia: s/p transfusion 4. Hyponatremia: Mild, monitor Patient evaluated using cardiology. Time spent 40 minutes Attestations 2 Medical Necessity Statement*: per shona Coding Level of Care Code Acute Code for Chg Fwd Diagnoses ESRD (end stage renal disease) N18.6
[2024-04-07 17:45] LABS: Glucose Point of Care 177 mg/dL (70-110)
[2024-04-07] MEDS: cefTRIAXone 1,000 MG in sodium chloride 0.9% (plus) 50 ML 100 MG IV (20:25)
[2024-04-08] VITALS (7 sets, daily range): BP systolic 150–198; BP diastolic 75–86; PULSE 69–77; RESP 15–18; TEMP 36.5–36.8; O2SAT 96–98
[2024-04-08 05:47] LABS: Glucose Point of Care 164 mg/dL (70-110)
[2024-04-08 06:28] LABS: Basophils % 0.6 %; Eosinophils # 0.3 10^3/uL (0.0-0.8); Eosinophils % 3.8 %; Hematocrit 28.8 % (36-47); Lymphocytes # 2.3 10^3/uL (0.8-4.8); Lymphocytes % 32.7 %; Mean Corpuscular HGB Conc 32.3 g/dL (30-55); Mean Corpuscular Hemoglobin 27.8 pg (27-33); Mean Platelet Volume 10.6 fL (7.4-10.4); Monocytes # 0.6 10^3/uL (0.2-0.9); Monocytes % 8.3 %; Neutrophils # 3.83 10^3/uL (1.8-7.7); Neutrophils % 53.8 %; Nucleated Red Blood Cells % 0 %; Platelet Count 338 10^3/cmm (157-399); Red Blood Count 3.35 10^6/uL (3.85-5.65); Red Cell Distribution Width 13.6 % (12.1-15.1); White Blood Count 7.12 10^3/uL (3.29-11.43)
[2024-04-08 06:50] LABS: Anion Gap 14.9 (5-19); Blood Urea Nitrogen 24 mg/dL (6-20); Calcium 8.4 mg/dL (8.5-10.5); Carbon Dioxide 26 mmol/L (22-29); Chloride 100 mmol/L (98-107); Glomerular Filtration Rate 11.7 mL/min (90-130); Glucose 163 mg/dL (65-115); Osmolality Calculated 292 mOsm/kg (285-295); Potassium 3.9 mmol/L (3.5-5.1); Sodium 137 mmol/L (136-145)
--- NOTE | 2024-04-08 07:48 | P.PN_ITS ---
Subjective 2 Subjective: s/p HD tuesday Medications: Reviewed: Yes Vitals/I&O/Wt Last Vital Signs Temp 98.0 F 04/08/24 07:44 Pulse 74 04/08/24 07:44 Resp 18 04/08/24 07:44 BP 198/85 04/08/24 07:44 Pulse Ox 97 04/08/24 07:44 O2 Del Method Nasal Cannula 04/08/24 07:44 O2 Flow Rate 2 04/08/24 00:00 04/07/24 04/08/24 04/08/24 22:59 06:59 14:59 Intake Total 410 / 1208 120 / 1328 Balance 410 / 1208 120 / 1328 Weight last 48 hrs Weight 93.485 kg Weight 92.669 kg Weight 92.278 kg Weight 90.7 kg Weight 91.172 kg Physical Exam 2 Narrative: awake , alert No distress S1S2 RRR per report Lungs clearper report No edema Data 04/08/24 05:46 04/08/24 05:46 Micro: Microbiology 04/06/24 14:55 Urine Culture - Preliminary Urine,Clean Catch A&P Assessment and plan (1) ESRD (end stage renal disease): 1. End-stage renal disease: On MWF schedule, patient in the process of switching to peritoneal dialysis. HD tuesday , next HD tuesday 3. Anemia: s/p transfusion 4. Hyponatremia: Mild, monitor Patient evaluated using cardiology. Time spent 40 minutes Attestations 2 Medical Necessity Statement*: per soumyact Coding Level of Care Code Acute Code for Chg Fwd Diagnoses ESRD (end stage renal disease) N18.6
[2024-04-08] MEDS: lisinopril 10 mg Tablet 30 MG PO (08:20)
[2024-04-08] MEDS: amlodipine 10 mg Tablet PO (08:21)
[2024-04-08] MEDS: hyDRALAzine 25 mg Tablet 50 MG PO ×2 (08:21→17:42)
[2024-04-08] MEDS: metoprolol succinate ER (24 HR) 25 mg Tablet PO ×2 (08:21→17:42)
[2024-04-08] MEDS: insulin lispro 100 unit/1 mL SUBCUT ×2 (08:21→12:17)
[2024-04-08] MEDS: sennosides-docusate Tablet 1 TAB PO (08:21)
[2024-04-08] MEDS: pantoprazole 40 mg SDV IVP ×2 (08:21→17:42)
[2024-04-08] MEDS: azithromycin 250 mg Tablet 500 MG PO (08:22)
--- NOTE | 2024-04-08 09:08 | PM.PN ---
Subjective Subjective: Pleasant cooperative Feeling better Currently on 2 L nasal cannula Vitals/I&O/Wt Last Vital Signs Temp 98.0 F 04/08/24 07:44 Pulse 72 04/08/24 08:11 Resp 15 04/08/24 08:11 BP 198/85 04/08/24 07:44 Pulse Ox 98 04/08/24 08:11 O2 Del Method Nasal Cannula 04/08/24 08:11 O2 Flow Rate 2 04/08/24 08:11 04/07/24 04/08/24 04/08/24 22:59 06:59 14:59 Intake Total 410 / 1208 120 / 1328 360 / 360 Output Total 200 / 200 Balance 410 / 1208 120 / 1328 160 / 160 Weight last 48 hrs Weight 93.485 kg Weight 92.669 kg Weight 92.278 kg Weight 90.7 kg Weight 91.172 kg Physical Exam Narrative: Awake and alert Sign of fluid load improving Currently on 2 L Pleasant cough S1, S2 Nonfocal neuroexam Data 04/08/24 05:46 04/08/24 05:46 Micro: Microbiology 04/06/24 14:55 Urine Culture - Preliminary Urine,Clean Catch A&P Assessment and plan (1) Uncontrolled type 2 diabetes mellitus: Qualifiers: Glycemic state: with hyperglycemia Qualified Code(s): E11.65 - Type 2 diabetes mellitus with hyperglycemia (2) Diabetic neuropathy, type II diabetes mellitus: Qualifiers: Diabetes mellitus laborer marine terminal insulin use: with laborer marine terminal use Qualified Code(s): E11.40 - Type 2 diabetes mellitus with diabetic neuropathy, unspecified; Z79.4 - watermelon harvesting supervisor (current) use of insulin (3) ESRD (end stage renal disease): (4) Anemia of chronic disease: Plan Anemia of chronic disease status post 1 unit, stable Plan to discharge her on Tuesday after dialysis Hypoxia related to volume overload improving Attestations Medical Necessity Statement*: Continue medical management Diagnoses Uncontrolled type 2 diabetes mellitus with hyperglycemia E11.65 Glycemic state: with hyperglycemia Type 2 diabetes mellitus with diabetic neuropathy, with long-term current use of insulin E11.40; Z79.4 Diabetes mellitus care home insulin use: with laborer marine terminal use ESRD (end stage renal disease) N18.6 Anemia of chronic disease D63.8
[2024-04-08 11:58] LABS: Glucose Point of Care 185 mg/dL (70-110)
[2024-04-08 16:28] LABS: Glucose Point of Care 122 mg/dL (70-110)
[2024-04-08] MEDS: cefTRIAXone 1,000 MG in sodium chloride 0.9% (plus) 50 ML 100 MG IV (19:47)
[2024-04-08 20:09] LABS: Glucose Point of Care 215 mg/dL (70-110)
[2024-04-09] VITALS (8 sets, daily range): BP systolic 125–207; BP diastolic 75–97; PULSE 64–77; RESP 16–18; TEMP 36.6–37; O2SAT 94–97
[2024-04-09 05:13] LABS: Basophils # 0.1 10^3/uL (0.0-0.1); Basophils % 0.7 %; Eosinophils # 0.3 10^3/uL (0.0-0.8); Eosinophils % 4.3 %; Lymphocytes # 2.8 10^3/uL (0.8-4.8); Lymphocytes % 38.6 %; Mean Corpuscular HGB Conc 32.1 g/dL (30-55); Mean Corpuscular Hemoglobin 27.9 pg (27-33); Mean Corpuscular Volume 87.1 fl (85-98); Mean Platelet Volume 10.4 fL (7.4-10.4); Monocytes # 0.5 10^3/uL (0.2-0.9); Monocytes % 7.3 %; Neutrophils # 3.52 10^3/uL (1.8-7.7); Neutrophils % 48.3 %; Nucleated Red Blood Cells % 0 %; Platelet Count 361 10^3/cmm (157-399); Red Blood Count 3.33 10^6/uL (3.85-5.65); Red Cell Distribution Width 13.3 % (12.1-15.1); White Blood Count 7.28 10^3/uL (3.29-11.43)
[2024-04-09 05:21] LABS: Blood Urea Nitrogen 30 mg/dL (6-20); Calcium 8.5 mg/dL (8.5-10.5); Carbon Dioxide 26 mmol/L (22-29); Chloride 100 mmol/L (98-107); Glomerular Filtration Rate 9.7 mL/min (90-130); Glucose 209 mg/dL (65-115); Osmolality Calculated 296 mOsm/kg (285-295); Sodium 137 mmol/L (136-145)
[2024-04-09 06:07] LABS: Glucose Point of Care 190 mg/dL (70-110)
--- NOTE | 2024-04-09 07:31 | P.PN_ITS ---
Subjective 2 Subjective: no new c/o Medications: Reviewed: Yes Vitals/I&O/Wt Last Vital Signs Temp 97.9 F 04/09/24 07:20 Pulse 77 04/09/24 07:20 Resp 17 04/09/24 07:20 BP 186/81 04/09/24 07:20 Pulse Ox 94 04/09/24 07:20 O2 Del Method Nasal Cannula 04/09/24 07:20 O2 Flow Rate 2 04/08/24 20:00 04/08/24 04/09/24 04/09/24 22:59 06:59 14:59 Intake Total 530 / 1130 120 / 1250 Balance 530 / 930 120 / 1050 Weight last 48 hrs Weight 93.576 kg Weight 93.485 kg Physical Exam 2 Narrative: awake , alert No distress S1S2 RRR per report Lungs clearper report No edema Data 04/09/24 04:29 04/09/24 04:29 Micro: Microbiology 04/06/24 14:55 Urine Culture - Final Urine,Clean Catch A&P Assessment and plan (1) ESRD (end stage renal disease): 1. End-stage renal disease: On MWF schedule, patient in the process of switching to peritoneal dialysis. HD tuesday , next HD today 3. Anemia: s/p transfusion 4. Hyponatremia: Mild, monitor Patient evaluated using cardiology. Time spent 40 minutes (2) Pleural effusion: Attestations 2 Medical Necessity Statement*: per shona Coding Level of Care Code Acute Code for Chg Fwd Diagnoses ESRD (end stage renal disease) N18.6 Pleural effusion J90
--- NOTE | 2024-04-09 08:43 | PC.HD ---
Heparin 1000 units loading dose administered at 0823 per center maker hand's orders. Patient's SBP was noted to be >200 over 3 cycles of VS. Message given to breaker unit assembler at 0830 to inform Reshma SALMON of need for patient's scheduled antihypertensives. Patient is currently asymptomatic.
[2024-04-09] MEDS: lisinopril 10 mg Tablet 30 MG PO (08:46)
[2024-04-09] MEDS: hyDRALAzine 25 mg Tablet 50 MG PO (08:46)
[2024-04-09] MEDS: amlodipine 10 mg Tablet PO (08:46)
[2024-04-09] MEDS: metoprolol succinate ER (24 HR) 25 mg Tablet PO (08:46)
[2024-04-09] MEDS: pantoprazole 40 mg SDV IVP (08:46)
[2024-04-09] MEDS: sennosides-docusate Tablet 1 TAB PO (08:46)
[2024-04-09] MEDS: insulin lispro 100 unit/1 mL SUBCUT (08:55)
--- NOTE | 2024-04-09 09:28 | PC.CHAP ---
Pastoral Care Encounter/Spiritual Assessment Type of Contact [] Declined zoning technician visit [] Patient/Family/Request visit [] Outpatient visit [] Follow-up visit [] Physician referral [] Code/Alert [x] Routine visit [] Staff referral [] Actively dying [] Patient sleeping [] Family support [] [x] Out of room [] Palliative care [] [] Receiving care in room [] Pre-surgical visit [] Trauma [] Long length of stay [] ICU visit [] Other: Relational/Emotional Strength [] Patient feels connected with others/family/visitors/staff [] Distress [] Loneliness/isolation [] Abandonment Spirituality of Patient [] Person of Kassy [] Attends Temple of their K[place] [] Believes in Prayer [] Reads Bible or Yarsani materials [] There are Spiritual issues to be addressed Shank Pinner Interventions [] Prayer [] Active listening [] Non-anxious presence [] Spiritual/emotional support [] Crisis/trauma care [] Spiritual counseling [] Bereavement support [] Provided bereavement packet [] Provided Bible/devotional materials [] Provided toy/stuffed animal, coloring book to patient or family member [] Provided Communion [] Anointing/Martin [] Salvation [] Completed spiritual assessment [] Other: Impact on Illness or Injury [] Angry [] Fearful [] Anxious [] Often cries [] Exhaustion [] Unable to work [] Unable to attend hindu [] Unable to walk/stand [] Unable to read [] Unable to drive [] Unable to eat/drink [] Unable to sleep [] Unable to be with family [] Patient intubated [] Other: Summary Time spent with patient
--- NOTE | 2024-04-09 11:15 | PM.DCS ---
Discharge Providers Date of Admission: 04/06/24 18:48 Date of Discharge: April 09, 2024 Attending Provider at Admission: Winter Wang MD Attending Provider at Discharge: Winter Wang MD Primary Care Provider: SEGUN Mulligan Diagnoses at Discharge Discharge Diagnosis (1) ESRD (end stage renal disease): Status: Acute Reason for Visit Reason for Visit: cp Hospital Course Hospital Course 53 of female with diabetes, diabetes related end-stage renal disease, recently started hemodialysis presented to hospital for shortness of breath, anemia of chronic disease, and volume overloaded state requiring 2 L of oxygen secondary to hypoxia after missing her dialysis session on that day, patient was given 1 unit PRBC on admission, she was dialyzed on day of admission, her symptoms improved with hemodialysis on consecutive days, she gets dialyzed MWF, she still need optimization of antihypertensive regimen, she does have bilateral pleural effusion, I have given her outpatient referral to get thoracentesis after 3 weeks in case with further dialysis her effusion does not improve and she is still requiring oxygen, I have increased the dose of lisinopril to 40 mg added Imdur and hydralazine 100 mg 3 a day, metoprolol succinate. Patient was given p.o. azithromycin along IV ceftriaxone for possible right middle lobe pneumonia, no leukocytosis, she remained afebrile, no need of antibiotics at the time of discharge. Physical Exam Narrative: Volume overload state improved Currently 2 L Pleasant and cooperative GCS 15 Awake and alert Hypertensive Discharge Data Studies Completed and Pending Completed Studies During Hospitalization Category Date Time Status CT angio chest PE protcl [id number] Stat Cat Scan 04/06/24 17:02 Completed XR chest 1V portable [id number] Stat Exams 04/06/24 14:08 Completed Radiology Impressions Chest X-Ray 04/06/24 14:08 IMPRESSION: 1. Cardiac enlargement with signs of congestive heart failure and left-sided pleural effusion. There is compressive atelectasis and/or infiltrate in the LEFT lower lobe. Chest CTA 04/06/24 17:02 IMPRESSION: 1. Negative for pulmonary embolus. 2. Large bilateral pleural effusions. 3. Scattered subcentimeter short axis nonspecific mediastinal lymph nodes. 4. Cardiomegaly. 5. Coronary artery atherosclerotic calcifications. 6. Cholelithiasis. 7. Patchy bilateral ground-glass airspace opacities suggestive of alveolar edema and/or pneumonic infiltrates with bilateral dependent airspace consolidations. 8. Right central venous catheter tip in the superior vena cava approaching the atrial caval junction. Laboratory Results WBC 7.28 10^3/uL (3.29-11.43) 04/09/24 04:29 RBC 3.33 10^6/uL (3.85-5.65) L 04/09/24 04:29 Hgb 9.30 g/dL (11.27-16.99) L 04/09/24 04:29 Hct 29.0 % (36-47) L 04/09/24 04:29 MCV 87.1 fl (85-98) 04/09/24 04:29 MCH 27.9 pg (27-33) 04/09/24 04: MCHC 32.1 g/dL (30-55) 04/09/24 04:29 RDW 13.3 % (12.1-15.1) 04/09/24 04:29 Plt Count 361 10^3/cmm (157-399) 04/09/24 04:29 MPV 10.4 fL (7.4-10.4) 04/09/24 04:29 Neut % (Auto) 48.3 % 04/09/24 04:29 Lymph % (Auto) 38.6 % 04/09/24 04:29 [place] % (Auto) 7.3 % 04/09/24 04:29 Eos % (Auto) 4.3 % 04/09/24 04:29 Baso % (Auto) 0.7 % 04/09/24 04:29 Neut # (Auto) 3.52 10^3/uL (1.8-7.7) 04/09/24 04:29 Lymph # (Auto) 2.8 10^3/uL (0.8-4.8) 04/09/24 04:29 [place] # (Auto) 0.5 10^3/uL (0.2-0.9) 04/09/24 04:29 Eos # (Auto) 0.3 10^3/uL (0.0-0.8) 04/09/24 04:29 Baso # (Auto) 0.1 10^3/uL (0.0-0.1) 04/09/24 04:29 Nucleated RBC % (auto) 0 % 04/09/24 04:29 Nucleated RBCs # 0.0 /100WBC 04/09/24 04:29 Sodium 137 mmol/L (136-145) 04/09/24 04:29 Potassium 4.0 mmol/L (3.5-5.1) 04/09/24 04:29 Chloride 100 mmol/L (98-107) 04/09/24 04:29 Carbon Dioxide 26 mmol/L (22-29) 04/09/24 04:29 Anion Gap 15.0 (5-19) 04/09/24 04:29 BUN 30 mg/dL (6-20) H 04/09/24 04:29 Creatinine 4.7 mg/dL (0.5-0.9) H 04/09/24 04:29 GFR Calculation 9.7 mL/min (90-130) L 04/09/24 04:29 Glucose 209 mg/dL (65-115) H 04/09/24 04:29 POC Glucose 190 mg/dL (70-110) H 04/09/24 06:04 Calculated Osmolality 296 mOsm/kg (285-295) H 04/09/24 04:29 Calcium 8.5 mg/dL (8.5-10.5) 04/09/24 04:29 Magnesium 1.9 mg/dL (1.7-2.3) 04/07/24 04:40 Total Bilirubin 0.4 mg/dL (0.15-1.2) 04/06/24 14:12 AST 19 U/L (0-32) 04/06/24 14:12 ALT 11 U/L (0-33) 04/06/24 14:12 Alkaline Phosphatase 83 U/L (35-105) 04/06/24 14:12 Troponin T Baseline 100 ng/L (0-10) H 04/06/24 14:12 Troponin T 120 Minute 98.18 ng/L (0-10) H 04/06/24 16:19 Delta Troponin T -1.82 ABS# (0-10) L 04/06/24 16:19 Troponin T Hi Sens 6Hr 92.63 ng/L (0-10) H 04/06/24 20:13 Troponin T Hi Sens 6Hr Delta -7.37 ng/L (0-12) L 04/06/24 20:13 Total Protein 6.1 g/dL (6.6-8.7) L 04/06/24 14:12 Albumin 3.3 g/dL (3.5-5.2) L 04/06/24 14:12 Globulin 2.8 g/dL (1.3-4.6) 04/06/24 14:12 Urine Color Yellow (Yellow) 04/06/24 14:55 Urine Appearance Cloudy (CLEAR) A 04/06/24 14:55 Urine pH 8 (5-7) H 04/06/24 14:55 Ur Specific [place] 1.015 (1.005-1.030) 04/06/24 14:55 Urine Protein 2+ (Negative) H 04/06/24 14:55 Urine Glucose (UA) 4+ (Normal) H 04/06/24 14:55 Urine Ketones 1+ (Negative) H 04/06/24 14:55 Urine Blood Neg (Negative) 04/06/24 14:55 Urine Nitrate Negative (Negative) 04/06/24 14:55 Urine Bilirubin Neg (Negative) 04/06/24 14:55 Urine Urobilinogen Norm mg/dL (Negative) 04/06/24 14:55 Ur Leukocyte Esterase 1+ (Negative) H 04/06/24 14:55 Urine RBC None /hpf (0-2) 04/06/24 14:55 Urine WBC 51-100 /hpf (0-5) 04/06/24 14:55 Ur Squamous Epith Cells 5-10 /hpf (0-5) H 04/06/24 14:55 Amorphous Sediment Not Reportable 04/06/24 14:55 Urine Bacteria 1+ /hpf (NONE) H 04/06/24 14:55 Hep Bs Antigen Non-reactive (Nonreactive) 04/06/24 20:13 Hep Bs Antibody < 3.5 (11.5-1000) L 04/06/24 20:13 Blood Type O Positive 04/06/24 20:13 Rho(D) Type Rh positive 04/06/24 20:13 Antibody Screen Negative 04/06/24 20:13 Crossmatch See Detail 04/06/24 20:13 Vitals Last Vital Signs Temp 98.6 F 04/09/24 08:39 Pulse 73 04/09/24 08:39 Resp 16 04/09/24 08:39 BP 207/97 04/09/24 08:39 Pulse Ox 94 04/09/24 07:20 O2 Del Method Nasal Cannula 04/09/24 07:20 O2 Flow Rate 2 04/09/24 08:00 Discharge Plan Discharge Patient Disposition: Home Condition: Stable Prescriptions: New lisinopril 10 mg Tablet 40 mg PO DAILY Qty: 90 4RF isosorbide mononitrate 30 mg tablet extended release 24 hr 30 mg PO DAILY Qty: 90 4RF Continued (DME) lancets [BD Ultra Fine Lancets] 33 gauge misc See Rx Instructions .ROUTE .MEDSUPPLY Qty: 100 3RF Rx Instructions: two times daily famotidine [Pepcid AC] 20 mg tablet 20 mg PO DAILY duloxetine [Cymbalta] 60 mg capsule,delayed release(DR/EC) 60 mg PO DAILY Qty: 90 0RF Rx Instructions: Take one capsule by mouth every day; stop 30 mg dose (DME) diabetic shoes with 3 inserts See Rx Instructions .Route .MEDSUPPLY Qty: 1 0RF Rx Instructions: As directed to the [facility] [place] ([facility] [place]) FreeStyle [place]ak 2 Sensor Kit See Rx Instructions .Route Qty: 6 3RF Rx Instructions: Change every 14 days. ondansetron HCl 4 mg tablet 4 mg PO Q8H PRN (Reason: nausea and vomiting) Qty: 10 0RF (DME) FreeStyle [place] 2 [place] [facility] See Rx Instructions .Route Qty: 1 0RF Rx Instructions: As directed ([facility] [place]) pen needle, diabetic 32 gauge x 1/4 needle See Rx Instructions .ROUTE .MEDSUPPLY Qty: 100 3RF Rx Instructions: As directed atorvastatin 40 mg tablet See Rx Instructions .ROUTE .COMPLEX Qty: 60 11RF Dose Instruction: TAKE ONE TABLET BY MOUTH DAILY AT 5PM Rx Instructions: TAKE ONE TABLET BY MOUTH DAILY AT 5PM Humulin R U-500 (Conc) Kwikpen 500 unit/mL (3 mL) insulin pen See Rx Instructions .ROUTE .COMPLEX Qty: 48 1RF Dose Instruction: INJECT 40 UNITS SUBCUTANEOUSLY WITH BREAKFAST, INJECT 100 UNITS WITH LUNCH AND INJECT 100 UNITS WITH SUPPER Rx Instructions: INJECT 40 UNITS SUBCUTANEOUSLY WITH BREAKFAST, INJECT 100 UNITS WITH LUNCH AND INJECT 100 UNITS WITH SUPPER omeprazole 20 mg Capsule,Delayed Release(Dr/Ec) 20 mg PO DAILY sodium bicarbonate 650 mg Tablet 650 mg PO TID sevelamer carbonate 800 mg tablet 800 mg PO TIDWM amlodipine 10 mg tablet See Rx Instructions .ROUTE .COMPLEX Qty: 90 0RF Dose Instruction: Take 1 tablet by mouth once daily Rx Instructions: Take 1 tablet by mouth once daily hydralazine 100 mg tablet 100 mg PO Q8H Qty: 90 0RF metoprolol succinate 25 mg tablet extended release 24 hr 25 mg PO BID 90 Days Qty: 180 0RF Discontinued diphenhydramine HCl [Benadryl] 25 mg capsule 25 mg PO TID Discharge Orders: Discharge Order (Routine); Ordered 04/09/24 Ordered By: Winter Wang Other Ambulatory Orders: US thoracentesis [id number] (Routine) Timeframe: 3 Weeks Facility: [facility] - Location: Radiology Ordered By: Winter Wang Referrals: Joellen Hill FNP [Primary Care Provider] - Discharge Diet: Cardiac Discharge Activity: Increase activity as tolerated Patient Instructions: Dialysis Diet (DC), Hemodialysis (DC), Opioid Safety Activity Restrictions/Additional Instructions: Please follow-up with your computer technical specialist to optimize your blood pressure medications to keep your blood pressure within good range I have given you prescription to get thoracentesis which is tapping layer outside lung to get rid of extra fluid, I am anticipating with dialysis pleural effusion will go away that is why have given you thoracentesis after 3 weeks Discharge Attestations Time Spent in Discharge Care*: greater than 30 min Quality Metrics Clinical Quality Measures [ No reported AMI, CVA or VTE this stay] Coding Level of Care Code Acute Code for g Fwd Diagnoses ESRD (end stage renal disease) N18.6
[2024-04-09] MEDS: azithromycin 250 mg Tablet 500 MG PO (11:44)
[2024-04-09] MEDS: hyDRALAzine 50 mg Tablet PO (11:44)
[2024-04-09 12:50] LABS: Glucose Point of Care 159 mg/dL (70-110)
--- NOTE | 2024-04-09 13:49 | PC.SOCIAL ---
Patient didnt qualify for oxygen at this time.
== END 2024-04-09 13:20 | disposition home or self-care (01) ==
LOC: ER 14:43 → MEDSURG 18:48
PROVIDERS: Hospitalist; Admitting Provider Internal Medicine; Emergency Provider Family Medicine; PCP Registered Nurse; Visit Provider Internal Medicine
DX: E11.22 Type 2 diabetes mellitus with diabetic chronic kidney disease (principal); I12.9 Hypertensive chronic kidney disease with stage 1 through stage 4 chronic kidney disease, or unspecified chronic kidney disease; N18.6 End stage renal disease; D63.1 Anemia in chronic kidney disease; Z99.2 Dependence on renal dialysis; Z99.81 Dependence on supplemental oxygen; R09.02 Hypoxemia; J90 Pleural effusion, not elsewhere classified; E87.1 Hypo-osmolality and hyponatremia; I16.0 Hypertensive urgency; F41.1 Generalized anxiety disorder; I73.9 Peripheral vascular disease, unspecified; E11.65 Type 2 diabetes mellitus with hyperglycemia; E11.319 Type 2 diabetes mellitus with unspecified diabetic retinopathy without macular edema
CPT/HCPCS: 36415; 36416; 36430; 71045; 71275; 80048; 80053; 81001; 82962; 83735; 84484; 85025; 86706; 86850; 86900; 86920; 87086; 87340; 90935; 93005; 94760; 96365; 96372; 96375; 96376; 99285; C9113; G0378; J0360; J0696; J1815; J3490; P9016; Q0144; Q3014; Q9967

== ENCOUNTER → 2024-04-24 15:05 | Outpatient (BNVA) | payer MEDICARE, MEDICAID, SELFPAY | PROVIDERS: PCP Registered Nurse; Visit Provider Registered Nurse | DX: D64.9 Anemia, unspecified (principal) | CPT/HCPCS: 85025 ==

== ENCOUNTER 2024-05-17 13:30 | Outpatient (CLI) | payer MEDICARE, MEDICAID, SELFPAY ==
--- NOTE | 2024-05-17 13:45 | USCV_ITS ---
Lizy Evans Age: 53 Gender: F : 1970 Exam Date: 05/17/2024 13:40 Ordering Phys: Joellen HillP Technologist: Exam Location: [facility] [place] Indication: cp sob BP: 160 / 85 HR: 88 Rhythm: Sinus Technical Quality: Adequate MEASUREMENTS (Male / Female) Normal Values 2D ECHO LV Diastolic Diameter PLAX 3.5 cm 4.2 - 5.9 / 3.9 - 5.3 cm IVS Diastolic Thickness 1.7 cm 0.6 - 1.0 / 0.6 - 0.9 cm IVS Systolic Thickness 1.3 cm LVPW Diastolic Thickness 1.5 cm 0.6 - 1.0 / 0.6 - 0.9 cm LVPW Systolic Thickness 1.5 cm LVOT Diameter 2.0 cm LV Ejection Fraction 2D Teich 67.3 % LV Ejection Fraction MOD 4C 55.4 % LV Ejection Fraction MOD 2C 64.8 % LV Ejection Fraction 2C AL 65.0 % LA Diameter 3.2 cm RA Systolic Volume 4C AL 25.7 ml RA Systolic Volume 4C MOD 25.2 ml LA Sys Volume AL 37.7 cm cubed LA Sys Volume Index AL 18.8 cm cubed/m squared Aorta at Sinotubular Diameter 2.9 cm M-MODE LA Ao Ratio MM 1.3 AV Cusp Separation MM 2.5 cm DOPPLER AV Peak Velocity 207.0 cm/s LVOT Peak Velocity 112.0 cm/s AV Area Cont Eq vti 1.9 cm squared AV Area Cont Eq pk 1.7 cm squared MV Peak Velocity 110.0 cm/s MV Area PHT 3.3 cm squared Mitral E to A Ratio 1.0 TV Peak Velocity 196.5 cm/s TR Peak Velocity 200.0 cm/s TR Peak Gradient 16.0 mmHg TV Peak E Velocity 129.0 cm/s Right Atrial Pressure 3.0 mmHg Pulmonary Artery Systolic Pressu 19.0 mmHg FINDINGS Left Ventricle Left ventricle is normal in size. LV systolic function is normal with EF of 60 to 65%. No regional wall motion abnormalities are seen. Right Ventricle Normal in size and function. Right Atrium Normal in size. Echogenic structure seen in the right atrium. Can be catheter tip vs mass. Left Atrium Normal in size. Mitral Valve Structurally normal mitral valve. Mild mitral regurgitation. Aortic Valve Structurally normal aortic valve. Mild aortic stenosis with mean gradient across aortic valve of 8 mmHg and aortic valve area of 1.87 cm squared. Tricuspid Valve Mild tricuspid regurgitation. Insufficient TR jet to calculate RVSP. Pulmonic Valve Not well-visualized. Pericardium Normal Aorta Normal in size IVC Appears to be normal CONCLUSIONS LV systolic function is normal with EF of 60-65% Echogenic structure seen in right atrium. Differentials include catheter tip versus mass. Mild mitral regurgitation Mild aortic stenosis Mild tricuspid regurgitation. Cornell Cisneros MD (Electronically Signed) Final Date: 30 May 2024 17:44 S
== END 2024-05-17 13:31 | disposition home or self-care (01) ==
LOC: RAD 13:31
PROVIDERS: PCP Registered Nurse; Visit Provider Registered Nurse
DX: I50.9 Heart failure, unspecified (principal); R93.1 Abnormal findings on diagnostic imaging of heart and coronary circulation
CPT/HCPCS: 93306

== ENCOUNTER 2024-05-23 17:23 | Inpatient (IN) | payer MEDICARE, MEDICAID, SELFPAY ==
[2024-05-23] VITALS (11 sets, daily range): BP systolic 116–155; BP diastolic 59–76; PULSE 86–89; RESP 15–18; TEMP 36.8–36.9; O2SAT 94–100; BMI 32.5; BMI 34.9
--- NOTE | 2024-05-23 17:32 | XRR_ITS ---
PROCEDURE INFORMATION: Exam: XR Chest Exam date and time: 05/23/2024 5:44 PM Age: 53 years old Clinical indication: Fever and shortness of breath; Prior surgery; Surgery date: 6+ months; Surgery type: Dialysis cath TECHNIQUE: Imaging protocol: Radiologic exam of the chest. Views: 1 view. COMPARISON: CT angio chest PE protcl [id number] 04/06/2024 5:26 PM FINDINGS: Tubes, catheters and devices: Right-sided dialysis catheter tip overlies the right atrium. Lungs: The lungs are adequately expanded. No focal consolidations or pulmonary edema. Mild left basilar atelectasis. Pleural spaces: No pleural effusions or pneumothorax. Heart/Mediastinum: No cardiomegaly. Bones/joints: No acute fractures. XR/XR chest 1V portable [id number] IMPRESSION: Mild left basilar atelectasis. No focal consolidations or pleural effusions.
--- NOTE | 2024-05-23 17:37 | ECG_ITS ---
[facility] Test Date: 2024-05-23 Pat Name: Lizy Evans Department: Room: Gender: Female Card Decorator: : 1970 Requested By: Genia Contreras Order Number: [id number] Herson MD: Cornell Cisneros M.D. Measurements Intervals [place] Rate: 84 P: 47 AR: 157 QRS: -32 QRSD: 86 T: 26 QT: 376 QTc: 446 Interpretive Statements SINUS RHYTHM LOW QRS VOLTAGE IN PRECORDIAL LEADS [QRS DEFLECTION < 1.0 mV IN CHEST LEADS] INFERIOR MYOCARDIAL INFARCTION , PROBABLY OLD [40+ ms Q WAVE AND/OR ST/T ABNORMALITY IN II/aVF] ANTEROLATERAL MYOCARDIAL INFARCTION , OF INDETERMINATE AGE [40+ ms Q WAVE IN I/aVL/V3-V6] Compared to ECG 04/06/2024 16:05:10 Myocardial infarct finding now present Left-axis deviation no longer present Electronically Signed On 05-23-2024 17:54:05 CDT by Cornell Cisneros M.D. [id number]
--- NOTE | 2024-05-23 17:37 | ED_ITS ---
HPI - Abdominal Pain 2 General: Chief Complaint: Abdominal Pain Stated Complaint: UTI Time Seen by Provider: 05/23/24 17:23 Source: patient Mode of arrival: ambulatory Limitations: no limitations History of Present Illness: 53-year-old female history of end-stage renal disease and is on dialysis states over the last 2 days she has been having some diffuse abdominal cramping that she has also had some chills and feeling like she may have a fever. She has had a mild cough as well. She denies any vomiting but has had some diarrhea. Patient is afebrile here. She did get dialysis today. Associated Symptoms: Reports chills and diarrhea; Denies dysuria, fever(s), nausea and vomiting Review of Systems 2 Const: Reports: chills and fatigue; Denies: fever(s), body aches or change in appetite ENMT: Denies: throat pain or dental pain Card: Denies: chest pain Resp: Denies: dyspnea GI: Reports: abdominal pain and diarrhea; Denies: nausea or vomiting : Denies: dysuria Musc: Denies: neck pain or back pain Skin/Breast: Denies: rash Neuro: Denies: headache(s) PFSH ED 2 PFSH: Medical History Pleural effusion Anemia of chronic disease ESRD (end stage renal disease) PAD (peripheral artery disease) Diabetic neuropathy, type II diabetes mellitus Diabetic retinopathy Bereavement Major depressive disorder, recurrent, in partial remission Psychiatric care FH: total knee replacement left Uncontrolled type 2 diabetes mellitus Essential hypertension HLA B27 (HLA B27 positive) High risk medication use Inflammatory arthritis Seronegative spondyloarthropathy Chronic insomnia See subjective note below. Chronic pain See subjective note below. Chronic post-traumatic stress disorder (PTSD) Generalized anxiety disorder Major depressive disorder, recurrent, moderate Surgical History History of cataract extraction History of hysterectomy for benign disease History of tonsillectomy History of appendectomy History of left knee replacement Family History Mother Hypertension Diabetes Psychiatric illness Thyroid disease Father , in his 50's Family history of premature coronary artery disease Hyperlipidemia Myocardial infarction Brother Hypertension Sister No problems noted. Denies family history of Rheumatoid arthritis Lupus Social History Smoking and tobacco/nicotine status: never used tobacco/nicotine Second hand smoke exposure: No Alcohol intake: never Substance/Drug Use: never Adopted: No Caregiver/support person: No Lives independently: No Household members: family service: No Current occupational status: unemployed and disabled Sexually active: Yes Do you think of yourself as: Straight/Heterosexual Current gender identity: Female Physical Exam 2 Const: COMMON NORMALS: no acute distress, patient oriented x3 and healthy appearing HENMT: COMMON NORMALS: normocephalic and atraumatic HEAD & SCALP: n ormocephalic and atraumatic Neck/C-Spine: COMMON NORMALS: full ROM and supple Chest: COMMONS NORMALS: normal inspection of the chest Resp: COMMON NORMALS: normal respiratory effort, No retractions, No use of accessory muscles and clear to auscultation bilaterally AUSCULTATION: clear to auscultation bilaterally Cardio: COMMON NORMALS: regular rate, regular rhythm and No murmurs present (Cardio) RATE: regular rate RHYTHM: regular rhythm GI: COMMON NORMALS: Normal to inspection, nondistended, normoactive bowel sounds present, Soft to palpation, non-tender and no masses PALPATION: Yes Soft to palpation Extremity: COMMON NORMALS: normal to inspection and full ROM Neuro: COMMON NORMALS: patient oriented x3, moves all extremities and no focal motor deficits Psych: COMMON NORMALS: mental status grossly normal, Normal thought process present and cooperative THOUGHT PROCESS: Normal thought process present Skin: COMMON NORMALS: no rashes or lesions noted and no wounds GENERAL SKIN EXAM: no rashes or lesions noted Course 2 Vital Signs: Vital signs: Vital Signs Temperature 98.3 F 05/23/24 17:27 Pulse Rate 89 05/23/24 19:01 Respiratory Rate 16 05/23/24 17:27 Blood Pressure 142/70 05/23/24 19:01 Pulse Oximetry 98 05/23/24 19:01 Oxygen Delivery Me thod Room Air 05/23/24 18:22 MDM - Abdominal Pain Medical Decision Making Patient presents here with generalized weakness she has had a fever of 100.8 she states at dialysis she has been afebrile here but she does have a cystitis along with hypokalemia and an elevated white count she has no signs of being septic here. She states she does feel quite weak so will admit for observation on IV antibiotics at this time. Medical Records I reviewed the patient's medical records. Lab Data I reviewed the patient's lab results. 05/23/24 17:33 05/23/24 18:08 Labs/Radiology: Radiology Impressions Chest X-Ray 05/23/24 17:32 IMPRESSION: Mild left basilar atelectasis. No focal consolidations or pleural effusions. Abdomen/Pelvis CT 05/23/24 17:39 IMPRESSION: 1. Peritoneal dialysis catheter terminates within the lower pelvis. Small volume free fluid. No pneumoperitoneum. 2. Hyperattenuating material within the dependent portion of the gallbladder may represent small stones versus sludge. 3. Circumferential bladder wall thickening concerning for cystitis in the appropriate clinical setting. 4. Anasarca. Laboratory Results WBC 13.56 10^3/uL (3.29-11.43) H 05/23/24 17:33 RBC 3.24 10^6/uL (3.85-5.65) L 05/23/24 17:33 Hgb 8.50 g/dL (11.27-16.99) L 05/23/24 17:33 Hct 26.2 % (36-47) L 05/23/24 17:33 MCV 80.9 fl (85-98) L 05/23/24 17:33 MCH 26.2 pg (27-33) L 05/23/24 17:33 MCHC 32.4 g/dL (30-55) 05/23/24 17:33 RDW 14.7 % (12.1-15.1) 05/23/24 17:33 Plt Count 502 10^3/cmm (157-399) H 05/23/24 17:33 MPV 11.0 fL (7.4-10.4) H 05/23/24 17:33 Neut % (Auto) 80.3 % 05/23/24 17:33 Lymph % (Auto) 11.1 % 05/23/24 17:33 [place] % (Auto) 5.7 % 05/23/24 17:33 Eos % (Auto) 0.8 % 05/23/24 17:33 Baso % (Auto) 0.4 % 05/23/24 17:33 Neut # (Auto) 10.90 10^3/uL (1.8-7.7) H 05/23/24 17:33 Lymph # (Auto) 1.5 10^3/uL (0.8-4.8) 05/23/24 17:33 [place] # (Auto) 0.8 10^3/uL (0.2-0.9) 05/23/24 17:33 Eos # (Auto) 0.1 10^3/uL (0.0-0.8) 05/23/24 17:33 Baso # (Auto) 0.1 10^3/uL (0.0-0.1) 05/23/24 17:33 Nucleated RBC % (auto) 0 % 05/23/24 17:33 Nucleated RBCs # 0.0 /100WBC 05/23/24 17:33 Sodium 132 mmol/L (136-145) L 05/23/24 18:08 Potassium 2.7 mmol/L (3.5-5.1) L* 05/23/24 18:08 Chloride 91 mmol/L (98-107) L 05/23/24 18:08 Carbon Dioxide 28 mmol/L (22-29) 05/23/24 18:08 Anion Gap 15.7 (5-19) 05/23/24 18:08 BUN 18 mg/dL (6-20) 05/23/24 18:08 Creatinine 3.6 mg/dL (0.5-0.9) H 05/23/24 18:08 GFR Calculation 13.2 mL/min (90-130) L 05/23/24 18:08 Glucose 215 mg/dL (65-115) H 05/23/24 18:08 Calculated Osmolality 282 mOsm/kg (285-295) L 05/23/24 18:08 Calcium 8.1 mg/dL (8.5-10.5) L 05/23/24 18:08 Magnesium 1.6 mg/dL (1.7-2.3) L 05/23/24 18:08 Total Bilirubin 0.5 mg/dL (0.15-1.2) 05/23/24 18:08 AST 13 U/L (0-32) 05/23/24 18:08 ALT 6 U/L (0-33) 05/23/24 18:08 Alkaline Phosphatase 74 U/L (35-105) 05/23/24 18:08 Total Protein 6.4 g/dL (6.6-8.7) L 05/23/24 18:08 Albumin 2.6 g/dL (3.5-5.2) L 05/23/24 18:08 Globulin 3.8 g/dL (1.3-4.6) 05/23/24 18:08 Urine Color Yellow (Yellow) 05/23/24 16:15 Urine Appearance Turbid (CLEAR) A 05/23/24 16:15 Urine pH 7.0 (5-7) 05/23/24 16:15 Ur Specific [place] 1.016 (1.005-1.030) 05/23/24 16:15 Urine Protein 3+ (Negative) A 05/23/24 16:15 Urine Glucose (UA) 2+ (Normal) H 05/23/24 16:15 Urine Ketones Negative (Negative) 05/23/24 16:15 Urine Blood 1+ (Negative) A 05/23/24 16:15 Urine Nitrate Negative (Negative) 05/23/24 16:15 Urine Bilirubin Negative (Negative) 05/23/24 16:15 Urine Urobilinogen 1.0 mg/dL (Negative) 05/23/24 16:15 Ur Leukocyte Esterase 2+ (Negative) A 05/23/24 16:15 Urine RBC 3-5 /hpf (0-2) 05/23/24 16:15 Urine WBC >100 /hpf (0-5) H 05/23/24 16:15 Ur Squamous Epith Cells 11-20 /hpf (0-5) 05/23/24 16:15 Ur Transition Epith Cell 0-4 /hpf 05/23/24 16:15 Amorphous Sediment Not Reportable 05/23/24 16:15 Urine Bacteria 1+ /hpf (NONE) H 05/23/24 16:15 Hyaline Casts 8.67 /lpf 05/23/24 16:15 Fine Granular Casts 0-4 /lpf H 05/23/24 16:15 Coarse Granular Casts Rare /lpf 05/23/24 16:15 Urine Yeast 1+ /hpf H 05/23/24 16:15 SARS-CoV-2 Ag (Rapid) negative (Negative) 05/23/24 16:15 All radiology interpretation(s) finalized by discharge Discharge Plan Discharge Patient Disposition: Admitted As Inpatient Clinical Impression: Acute cystitis, Hypokalemia Condition: Stable Coding Level of Care Code ED Legal Process Specialist for Leanna Lester
--- NOTE | 2024-05-23 17:39 | CTR_ITS ---
PROCEDURE INFORMATION: Exam: CT Abdomen And Pelvis Without Contrast Exam date and time: 05/23/2024 5:54 PM Age: 53 years old Clinical indication: Abdominal pain; Prior surgery; Surgery date: 6+ months; Surgery type: Appy, hyst, dialysis patient; Additional info: Abd pain TECHNIQUE: Imaging protocol: Computed tomography of the abdomen and pelvis without contrast. Radiation optimization: All CT scans at this facility use at least one of these dose optimization techniques: automated exposure control; mA and/or kV adjustment per patient size (includes targeted exams where dose is matched to clinical indication); or iterative reconstruction. COMPARISON: CT abdomen pelvis wo con [id number] 01/30/2023 5:48 PM RADIATION DOSE METRICS: Total DLP (mGy-cm): 858 FINDINGS: Tubes, catheters and devices: Catheter tip terminates within the right atrium. Pleural spaces: Trace bilateral pleural effusions. Coronary arteries: Coronary artery calcifications. Liver: Normal. No mass. Gallbladder and biliary ducts: Hyperattenuating material within the dependent portion of the gallbladder may represent small stones versus sludge. Pancreas: Normal. No ductal dilation. Spleen: Normal. No splenomegaly. Adrenal glands: Normal. No mass. Kidneys and ureters: Normal. No hydronephrosis. Stomach and bowel: Unremarkable. No obstruction. No mucosal thickening. Appendix: Status post appendectomy. Intraperitoneal space: Peritoneal dialysis catheter terminates within the lower pelvis. Small volume free fluid. No pneumoperitoneum. Vasculature: Severe atherosclerotic calcifications. Lymph nodes: Unremarkable. No enlarged lymph nodes. Urinary bladder: Circumferential bladder wall thickening concerning for cystitis in the appropriate clinical setting. Reproductive: Status post hysterectomy. Bones/joints: Unremarkable. No acute fracture. Soft tissues: Diffuse anasarca. CT/CT kidney stone [id number] IMPRESSION: 1. Peritoneal dialysis catheter terminates within the lower pelvis. Small volume free fluid. No pneumoperitoneum. 2. Hyperattenuating material within the dependent portion of the gallbladder may represent small stones versus sludge. 3. Circumferential bladder wall thickening concerning for cystitis in the appropriate clinical setting. 4. Anasarca.
[2024-05-23 17:53] LABS: Basophils # 0.1 10^3/uL (0.0-0.1); Basophils % 0.4 %; Eosinophils # 0.1 10^3/uL (0.0-0.8); Eosinophils % 0.8 %; Hematocrit 26.2 % (36-47); Lymphocytes # 1.5 10^3/uL (0.8-4.8); Lymphocytes % 11.1 %; Mean Corpuscular HGB Conc 32.4 g/dL (30-55); Mean Corpuscular Hemoglobin 26.2 pg (27-33); Mean Corpuscular Volume 80.9 fl (85-98); Monocytes # 0.8 10^3/uL (0.2-0.9); Monocytes % 5.7 %; Neutrophils % 80.3 %; Nucleated Red Blood Cells % 0 %; Platelet Count 502 10^3/cmm (157-399); Red Blood Count 3.24 10^6/uL (3.85-5.65); Red Cell Distribution Width 14.7 % (12.1-15.1); White Blood Count 13.56 10^3/uL (3.29-11.43)
[2024-05-23 18:11] LABS: Slide Review Slide Review Perform
[2024-05-23 18:28] LABS: Charge for UA Resulting for Rev
[2024-05-23 18:33] LABS: Bilirubin Urine Negative (Negative); Blood Urine 1+ (Negative); Glucose Urine UA 2+ (Normal); Ketones Urine Negative (Negative); Leukocyte Esterase Urine 2+ (Negative); Nitrate Urine Negative (Negative); Protein Urine 3+ (Negative); Specific Gravity, Urine 1.016 (1.005-1.030); Urine Appearance Turbid (CLEAR); Urine Color Yellow (Yellow)
[2024-05-23 18:35] LABS: Alanine Aminotransferase 6 U/L (0-33); Albumin Level 2.6 g/dL (3.5-5.2); Alkaline Phosphatase 74 U/L (35-105); Anion Gap 15.7 (5-19); Aspartate Amino Transferase 13 U/L (0-32); Blood Urea Nitrogen 18 mg/dL (6-20); Calcium 8.1 mg/dL (8.5-10.5); Carbon Dioxide 28 mmol/L (22-29); Chloride 91 mmol/L (98-107); Creatinine Clr Calc Pharmacy 19.1988; Globulin 3.8 g/dL (1.3-4.6); Glomerular Filtration Rate 13.2 mL/min (90-130); Glucose 215 mg/dL (65-115); Osmolality Calculated 282 mOsm/kg (285-295); Sodium 132 mmol/L (136-145); Total Bilirubin 0.5 mg/dL (0.15-1.2); Total Protein 6.4 g/dL (6.6-8.7)
[2024-05-23 18:36] LABS: Bacteria Urine 1+ /hpf; Hyaline Casts Urine 8.67 /lpf; WBC Urine >100 /hpf (0-5)
[2024-05-23 18:37] LABS: Potassium 2.7 mmol/L (3.5-5.1)
[2024-05-23 18:48] LABS: SARS Covid-2 Antigen negative (Negative)
[2024-05-23] MEDS: potassium chloride ER 20 mEq Tablet 60 MEQ PO (18:49)
[2024-05-23 18:51] LABS: Transitional Epi Cells Urine 0-4 /hpf
[2024-05-23 18:52] LABS: Add Urine Culture? Yes; Coarse Granular Casts Urine RARE /lpf; Fine Granular Casts Urine 0-4 /lpf
[2024-05-23 19:06] LABS: Magnesium 1.6 mg/dL (1.7-2.3)
--- NOTE | 2024-05-23 19:22 | P.HP_ITS ---
Providers/Chief Complaint 2 Primary Care Provider: SEGUN Mulligan Chief Complaint: UTI History of Present Illness Lizy Evans is a 53 year old female with past medical history of CKD on hemodialysis MWF, hypertension, type 2 diabetes mellitus presents to the ER from dialysis center because of low-grade fever of 100.8 and feeling weak. Patient also has a peritoneal dialysis catheter in place. As per her she has been transitioned to peritoneal dialysis catheter but for last 2 weeks she is not able to drain fluid through the PD catheter. She also states usually her PD catheter dressing has been soaked with the gunk. As per the patient she has had frequent falls over the last 10 days with feeling weak and dizzy which she attributes to her blood pressure running lower than usual. She has been complaining of having urinary hesitancy and painful urination along with frequent episodes of dark soft bowel movements. As per her she usually has constipation but for the last week to 10 days she has had multiple bowel accidents. Her blood pressure usually would run more than 200 but for the last few weeks have been running low for which she has asked to stop her home dose of lisinopril. Today during dialysis she was feeling weak and found to have a fever of 100.8 Fahrenheit so her dialysis was cut short for only 2 hours instead of her usual 4 hours and she was sent to the ER. Review of Systems 2 General: Reports: 10 or more systems reviewed and unremarkable except in HPI and below Const: Denies: fever(s), chills, body aches, change in appetite, change in weight, malaise, night sweats, diaphoresis, change in sleep pattern, daytime sleepiness or snoring Eyes: Denies: change in vision, blurry vision, photophobia, eye discomfort or eye discharge ENMT: Denies: throat pain, enlarged tonsils, hoarseness, mouth pain, oral sores, dry mouth, tinnitus, nasal congestion or post nasal drip Card: Denies: chest pain, palpitations, irregular heart rhythm, edema, swelling of feet/ankles, lightheadedness, syncope, pre-syncope, dyspnea on exertion, orthopnea, leg pain with exertion or acrocyanosis Resp: Denies: dyspnea, productive cough, non-productive cough, wheezing, stridor, pain on inspiration, change in phlegm color, hemoptysis or chest congestion GI: Denies: abdominal pain, nausea, vomiting, hematemesis, coffee ground emesis, dysphagia, heartburn, diarrhea, constipation, bloating, GI cramping, change in bowel habits, pain on defecation, hematochezia or melena : Denies: flank pain, dysuria, urinary frequency, urinary urgency, urinary hesitancy, nocturia or hematuria Musc: Denies: neck pain, back pain, extremity pain, joint pain, joint swelling, joint redness, joint stiffness or limited range of motion Neuro: Denies: headache(s), numbness in extremities, weakness in extremities, sensory changes, lack of coordination, difficulty walking, frequent falls, dizziness, vertigo, confusion, Slurred speech present, difficulty communicating thoughts or seizure-like activity Psych: Denies: anxiety, depression, mood swings, panic attacks, hopelessness or irritability Endo: Denies: polyuria, polydipsia, tired all the time, cold intolerance, excessive sweating, flushing or heat intolerance Carlos/Lymph: Denies: easy bruising or easy bleeding All/Imm: Denies: tongue swelling, facial swelling or acute wheezing Medications/Allergies Home Medications Medication Instructions Recorded Confirmed Last Taken Type lancets 33 gauge (BD Ultra Fine #100 ea 12/05/19 04/11/24 Unknown Rx Lancets) flash glucose scanning reader #1 ea 05/29/21 04/11/24 Unknown Rx (FreeStyle Palak 2 [place]) pen needle, diabetic 32 gauge x #100 ea 04/04/23 04/11/24 Unknown Rx 1/4 atorvastatin 40 mg tablet See Rx Instructions .Route 06/08/23 05/23/24 Unknown Rx .COMPLEX #60 tabs diabetic shoes with 3 inserts #1 ea 08/22/23 04/11/24 Unknown Rx duloxetine 60 mg capsule,delayed 60 mg PO DAILY #90 caps 02/06/24 05/23/24 Unknown Rx release (Cymbalta) insulin regular hum U-500 conc 500 See Rx Instructions .Route 03/30/24 05/23/24 Unknown Rx unit/mL(3 mL) subcut pen (Humulin .COMPLEX #48 mL R U-500 (Conc) Insulin Kwikpen) omeprazole 20 mg capsule,delayed 20 mg PO DAILY 04/06/24 04/11/24 Unknown History release amlodipine 10 mg tablet See Rx Instructions .Route 04/09/24 05/23/24 Unknown Rx .COMPLEX #90 tabs hydralazine 100 mg tablet 100 mg PO Q8H #90 tabs 04/09/24 05/23/24 Unknown Rx isosorbide mononitrate 30 mg 30 mg PO DAILY #90 tabs 04/09/24 05/23/24 Unknown Rx tablet,extended release 24 hr lisinopril 10 mg tablet 40 mg (4 x 10 mg) PO DAILY #90 tabs 04/09/24 05/23/24 Unknown Rx metoprolol succinate 25 mg 25 mg PO BID 90 days #180 tabs 04/09/24 05/23/24 Unknown Rx tablet,extended release 24 hr flash glucose sensor (FreeStyle #6 ea 04/24/24 04/24/24 Unknown Rx Palak 2 Sensor kit) cetirizine 10 mg tablet 10 mg PO DAILY PRN Allergy Symptoms 05/23/24 05/23/24 Unknown History Allergies Allergy/AdvReac Type Severity Reaction Status Date / Time venom-honey bee Allergy Severe ALGY-Redness Verified 04/24/24 14:18 of Skin marijuana (cannabis) Allergy Intermediate ADR-Nausea Verified 04/24/24 14:18 codeine AdvReac Severe ADR-Vomitin Verified 04/24/24 14:18 g morphine AdvReac Severe ADR-Vomitin Verified 04/24/24 14:18 g propoxyphene AdvReac Severe ADR-Vomitin Verified 04/24/24 14:18 [From Darvocet-N] g latex AdvReac Intermediate ALGY-Rash Verified 04/24/24 14:18 PFSH Acute 2 PFSH: Medical History (Updated 05/23/24 @ 22:56 by Lawson Diaz MD) Peritoneal dialysis catheter in place Uncontrolled type 2 diabetes mellitus Pleural effusion Anemia of chronic disease ESRD (end stage renal disease) PAD (peripheral artery disease) Diabetic neuropathy, type II diabetes mellitus Diabetic retinopathy Bereavement Major depressive disorder, recurrent, in partial remission Psychiatric care FH: total knee replacement left Essential hypertension HLA B27 (HLA B27 positive) High risk medication use Inflammatory arthritis Seronegative spondyloarthropathy Chronic insomnia See subjective note below. Chronic pain See subjective note below. Chronic post-traumatic stress disorder (PTSD) Generalized anxiety disorder Major depressive disorder, recurrent, moderate Surgical History History of cataract extraction History of hysterectomy for benign disease History of tonsillectomy History of appendectomy History of left knee replacement Family History Mother Hypertension Diabetes Psychiatric illness Thyroid disease Father , in his 50's Family history of premature coronary artery disease Hyperlipidemia Myocardial infarction Brother Hypertension Sister No problems noted. Denies family history of Rheumatoid arthritis Lupus Social History Smoking and tobacco/nicotine status: never used tobacco/nicotine Second hand smoke exposure: No Alcohol intake: never Substance/Drug Use: never Adopted: No Caregiver/support person: No Lives independently: No Household members: family service: No Current occupational status: unemployed and disabled Sexually active: Yes Do you think of yourself as: Straight/Heterosexual Current gender identity: Female Vitals/I&O/Wt Last Vital Signs Temp 98.3 F 05/23/24 17:27 Pulse 89 05/23/24 19:01 Resp 16 05/23/24 17:27 BP 142/70 05/23/24 19:01 Pulse Ox 98 05/23/24 19:01 O2 Del Method Room Air 05/23/24 18:22 Weight last 48 hrs Weight 86.183 kg Physical Exam 2 Narrative: General: No acute distress, AO x3 HEENT: PERRLA, pupils bilaterally equal and reactive Chest: Normal vesicular breath sounds, no added sounds, equal good air entry bilaterally CVS: S1-S2 regular, no murmurs, no tachycardia, no gallops, no rubs Abdomen: Soft, generalized tenderness, no organomegaly, bowel sounds present, PD catheter in place with clean dressing Neuro: No focal deficits, no facial deformity, AO x3, power 5/5 in all limbs Quick SOFA Score: Respiratory Rate: 18 Blood Pressure: 137/59 [place] Coma Scale: 15 qSOFA Score: 0 If qSOFA score 2 or greater, continue: Blood Pressure Mean: 85 Bilirubin (mg/dl): 0.5 Platelets (x10?/ml): 502 Creatinine (mg/dl): 3.6 Evaluation: Current stage of sepsis: sepsis Sepsis stage criteria used: [facility] Sep-1 and Sepsis-3 Crystalloid fluids: no fluids ordered Reasons: renal failure Blood cultures ordered: Yes Possible source: genitourinary Focused Exam: Vital signs: Temp Pulse Resp BP Pulse Ox O2 Del Method 05/23/24 19:01 89 142/70 98 05/23/24 18:22 148/69 99 Room Air 05/23/24 17:27 98.3 F 89 16 152/76 100 Room Air Date exam was performed: 05/23/24 Time exam was performed: 22:52 2 Sepsis Screen No Definite Risk 05/23/24 21:30 Respiratory Rate 18 breaths/min (12 - 18) 05/23/24 21:55 Blood Pressure 137/59 mmHg 05/23/24 21:55 [place] Coma Scale Score 15 05/23/24 21:30 Quick SOFA Score 0 05/23/24 21:30 SOFA Score: 2 [place] Coma Scale Score 15 05/23/24 21:30 Blood Pressure Mean 85 mmHg 05/23/24 21:30 Total Bilirubin 0.5 mg/dL (0.15-1.2) 05/23/24 18:08 Platelet Count 502 10^3/cmm (157-399) H 05/23/24 17:33 Creatinine 3.6 mg/dL (0.5-0.9) H 05/23/24 18:08 SOFA Score 3 05/23/24 19:30 Data 05/23/24 17:33 05/23/24 18:08 Other Labs: Radiology Impressions Chest X-Ray 05/23/24 17:32 IMPRESSION: Mild left basilar atelectasis. No focal consolidations or pleural effusions. Abdomen/Pelvis CT 05/23/24 17:39 IMPRESSION: 1. Peritoneal dialysis catheter terminates within the lower pelvis. Small volume free fluid. No pneumoperitoneum. 2. Hyperattenuating material within the dependent portion of the gallbladder may represent small stones versus sludge. 3. Circumferential bladder wall thickening concerning for cystitis in the appropriate clinical setting. 4. Anasarca. A&P Assessment and plan (1) Sepsis: Most likely in setting of cystitis. Cannot rule out PD peritonitis given abdominal tenderness, unable to drain peritoneal fluid for last 2 weeks. Will try to obtain PD fluid for analysis. If fluid is available we will plan for body fluid culture, MRSA swab. Also complaining of occasional episodes of diarrhea. Check stool studies. Rule out C. difficile. (2) Acute cystitis: Appreciate urinalysis, CT abdomen pelvis. Appreciate past culture history with history of UTI with E. coli in 03/22/2024. Also has history of strep UTI. Check blood culture, urine culture. For now start patient on IV ceftriaxone 1 g daily. De-escalate antibiotics as per culture sensitivities. (3) Hypokalemia: Repleted 60 mg in the ER. Also have hypomagnesemia. Replete to 1 g IV magnesium. Repeat BMP and magnesium level in AM. (4) ESRD (end stage renal disease) on dialysis: On hemodialysis. With a trial of possible transition to peritoneal dialysis as an outpatient but being unsuccessful so far Will consult nephrology for further dialysis. Monitor BMP daily. (5) Uncontrolled type 2 diabetes mellitus: Last A1c of 11.3. For now we will start on high-dose dose protocol Humalog. Will add Lantus depending on insulin requirement in the next 24 hours. Qualifiers: Glycemic state: with hyperglycemia Qualified Code(s): E11.65 - Type 2 diabetes mellitus with hyperglycemia (6) Peritoneal dialysis catheter in place: (7) CHF (congestive heart failure): Currently euvolemic. No echocardiogram on chart. Will check echocardiogram. Qualifiers: Heart failure chronicity: unspecified Heart failure type: unspecified Qualified Code(s): I50.9 - Heart failure, unspecified (8) Chronic post-traumatic stress disorder (PTSD): Continue with home dose of duloxetine. Plan Hypertension: Goal blood pressure less than 140/90 mg. Blood pressure reportedly remains low recently. For now continue with home dose of amlodipine, Imdur, metoprolol. Hold off on home dose of lisinopril and hydralazine. Will uptitrate for goal blood pressure. Renal diabetic dialysis diet Heparin 5000 every 12 daily for DVT prophylaxis Protonix OPD prophylaxis Full code Attestations 2 Medical Necessity Statement*: Admit for more than 2 midnights for management of sepsis in setting of UTI with possibility of PD peritonitis in a patient with history of end-stage renal disease, uncontrolled type 2 diabetes mellitus on dialysis Diagnoses Acute cystitis N30.00 Hypokalemia E87.6 ESRD (end stage renal disease) on dialysis N18.6; Z99.2 Congestive heart failure, unspecified HF chronicity, unspecified heart failure type I50.9 Heart failure chronicity: unspecified Heart failure type: unspecified Uncontrolled type 2 diabetes mellitus with hyperglycemia E11.65 Glycemic state: with hyperglycemia Chronic post-traumatic stress disorder (PTSD) F43.12 Sepsis A41.9 Peritoneal dialysis catheter in place Z99.2
[2024-05-23] MEDS: magnesium sulfate premix 1 GM/100 ML PIGGYBACK IV (20:08)
[2024-05-23] MEDS: cefTRIAXone 1,000 mg SDV 1000 MG IVP (20:08)
[2024-05-23 20:28] LABS: Lactic Sepsis W/Reflex 0.9 mmol/L (0.5-2.2)
[2024-05-23 20:47] LABS: Procalcitonin 2.04 ng/mL (0-0.5); Thyroid Stimulating Hormone 2.83 uIU/mL (0.27-4.20); Vitamin B12 446 pg/mL (232-1245)
[2024-05-23 20:58] LABS: Iron 16 ug/dL (37-145); Percent Saturation 19.2 % (20-50); Total Iron Binding Capacity 83 mcg/dl; Unsaturated Iron Binding 67 ug/dL (112-347)
[2024-05-23 23:07] LABS: Glucose Point of Care 168 mg/dL (70-110)
[2024-05-23] MEDS: insulin lispro 100 unit/1 mL SUBCUT (23:17)
[2024-05-23] MEDS: heparin 5,000 unit/mL INJ 1 mL 5000 UNIT SUBCUT (23:18)
[2024-05-24] VITALS (13 sets, daily range): BP systolic 112–145; BP diastolic 61–75; PULSE 70–83; RESP 14–18; TEMP 36.6–37.1; O2SAT 95–98
[2024-05-24 05:13] LABS: Basophils % 0.4 %; Eosinophils # 0.2 10^3/uL (0.0-0.8); Eosinophils % 2.9 %; Hematocrit 21.4 % (36-47); Lymphocytes # 1.2 10^3/uL (0.8-4.8); Lymphocytes % 15.2 %; Mean Corpuscular HGB Conc 32.2 g/dL (30-55); Mean Corpuscular Hemoglobin 26.3 pg (27-33); Mean Corpuscular Volume 81.7 fl (85-98); Mean Platelet Volume 9.8 fL (7.4-10.4); Monocytes # 0.5 10^3/uL (0.2-0.9); Monocytes % 6.1 %; Neutrophils # 5.85 10^3/uL (1.8-7.7); Neutrophils % 74.1 %; Nucleated Red Blood Cells % 0 %; Platelet Count 441 10^3/cmm (157-399); Red Blood Count 2.62 10^6/uL (3.85-5.65); Red Cell Distribution Width 14.6 % (12.1-15.1); White Blood Count 7.89 10^3/uL (3.29-11.43)
[2024-05-24 05:30] LABS: Alanine Aminotransferase 6 U/L (0-33); Albumin Level 2.3 g/dL (3.5-5.2); Alkaline Phosphatase 67 U/L (35-105); Anion Gap 15.3 (5-19); Aspartate Amino Transferase 15 U/L (0-32); Blood Urea Nitrogen 21 mg/dL (6-20); Carbon Dioxide 26 mmol/L (22-29); Chloride 98 mmol/L (98-107); Creatinine Clr Calc Pharmacy 17.6119; Globulin 3.3 g/dL (1.3-4.6); Glomerular Filtration Rate 11.4 mL/min (90-130); Glucose 108 mg/dL (65-115); Magnesium 1.8 mg/dL (1.7-2.3); Osmolality Calculated 286 mOsm/kg (285-295); Phosphorus 2.6 mg/dL (2.5-4.5); Potassium 3.3 mmol/L (3.5-5.1); Sodium 136 mmol/L (136-145); Total Bilirubin 0.2 mg/dL (0.15-1.2); Total Protein 5.6 g/dL (6.6-8.7)
[2024-05-24 05:31] LABS: Chol HDL Ratio 3.88 mg/dL (0.0-4.40); Cholesterol 97 mg/dL (0-200); HDL Cholesterol 25 mg/dL (60-100); LDL Cholesterol Calculated 50 mg/dL (50-129); Triglycerides 111 mg/dL (0-150)
[2024-05-24 05:36] LABS: Procalcitonin 1.97 ng/mL (0-0.5)
[2024-05-24 05:50] LABS: Folate Level 5.8 ng/mL (4.8-37.3)
[2024-05-24 06:21] LABS: Glucose Point of Care 104 mg/dL (70-110)
[2024-05-24] MEDS: amlodipine 10 mg Tablet PO (08:40)
[2024-05-24] MEDS: pantoprazole DR 40 mg Tablet PO (08:40)
[2024-05-24] MEDS: duloxetine 60 mg Capsule PO (08:40)
[2024-05-24] MEDS: isosorbide mononitrate ER 30 mg Tablet PO (08:40)
[2024-05-24] MEDS: metoprolol succinate ER (24 HR) 25 mg Tablet PO ×2 (08:40→16:56)
[2024-05-24] MEDS: heparin 5,000 unit/mL INJ 1 mL 5000 UNIT SUBCUT ×2 (11:16→21:14)
[2024-05-24 11:20] LABS: Glucose Point of Care 164 mg/dL (70-110)
[2024-05-24] MEDS: insulin lispro 100 unit/1 mL SUBCUT (11:31)
[2024-05-24 11:42] LABS: Mononuclear #, Pertinoneal Fl 0.089 10^3/uL; Polynuclear # Cells, Perit 0.155 10^3/uL; RBC Pertioneal Fluid 1 10^3/uL; WBC Peritoneal Fluid 244 /uL
--- NOTE | 2024-05-24 11:43 | P.CONIM_ITS ---
Providers/Reason For Consult 2 Consulting Physician/Specialty*: mary crenshaw md / telenephrology Reason for Consult*: ESRD care Requesting Physician: DR Diaz Attending Physician: Lawson Diaz MD Primary Care Provider: SEGUN Mulligan History of Present Illness History of Present Illness Lizy Evans is a 53 year old female with past medical history of HTN, DM type 2, ESRD on hemodialysis via a RT Chest wall permacath on MWF. She has a PD catheter that was placed 6-7 weeks ago. she has not yet started PD. and per the pt she has had recent difficulty flushing the catheter. She was admitted yesterday from the dialysis center, with a UTI and question of peritonitis. She also states usually her PD catheter dressing has been soaked with the gunk. As per the patient she has had frequent falls over the last 10 days with feeling weak and dizzy which she attributes to her blood pressure running lower than usual. She has been complaining of having urinary hesitancy and painful urination along with frequent episodes of dark soft bowel movements. yesterday she was started on ceftriaxone and this morning PD fluids were sent for cell count and cx. Review of Systems 2 Narrative: Chills, fevers, nausea, diarrhea, abdominal pain, headaches. No shortness of breath positive lightheadedness. Pain with urination. States that she had kidney stones and UTIs in the past. Patient denies gallstones. Medications/Allergies Home Medications Medication Instructions Recorded Confirmed Last Taken Type lancets 33 gauge (BD Ultra Fine #100 ea 12/05/19 05/24/24 Unknown Rx Lancets) flash glucose scanning reader #1 ea 05/29/21 05/24/24 Unknown Rx (FreeStyle [place] 2 [place]) pen needle, diabetic 32 gauge x #100 ea 04/04/23 05/24/24 Unknown Rx 1/4 atorvastatin 40 mg tablet See Rx Instructions .Route 06/08/23 05/23/24 Unknown Rx .COMPLEX #60 tabs diabetic shoes with 3 inserts #1 ea 08/22/23 05/24/24 Unknown Rx duloxetine 60 mg capsule,delayed 60 mg PO DAILY #90 caps 02/06/24 05/23/24 Unknown Rx release (Cymbalta) insulin regular hum U-500 conc 500 See Rx Instructions .Route 03/30/24 05/23/24 Unknown Rx unit/mL(3 mL) subcut pen (Humulin .COMPLEX #48 mL R U-500 (Conc) Insulin Kwikpen) omeprazole 20 mg capsule,delayed 20 mg PO DAILY 04/06/24 05/23/24 Unknown History release amlodipine 10 mg tablet See Rx Instructions .Route 04/09/24 05/23/24 Unknown Rx .COMPLEX #90 tabs hydralazine 100 mg tablet 100 mg PO Q8H #90 tabs 04/09/24 05/23/24 Unknown Rx isosorbide mononitrate 30 mg 30 mg PO DAILY #90 tabs 04/09/24 05/23/24 Unknown Rx tablet,extended release 24 hr lisinopril 10 mg tablet 40 mg (4 x 10 mg) PO DAILY #90 tabs 04/09/24 05/23/24 Unknown Rx metoprolol succinate 25 mg 25 mg PO BID 90 days #180 tabs 04/09/24 05/23/24 Unknown Rx tablet,extended release 24 hr flash glucose sensor (FreeStyle #6 ea 04/24/24 05/24/24 Unknown Rx Palak 2 Sensor kit) cetirizine 10 mg tablet 10 mg PO DAILY PRN Allergy Symptoms 05/23/24 05/23/24 Unknown History Allergies Allergy/AdvReac Type Severity Reaction Status Date / Time venom-honey bee Allergy Severe ALGY-Redness Verified 04/24/24 14:18 of Skin marijuana (cannabis) Allergy Intermediate ADR-Nausea Verified 04/24/24 14:18 codeine AdvReac Severe ADR-Vomitin Verified 04/24/24 14:18 g morphine AdvReac Severe ADR-Vomitin Verified 04/24/24 14:18 g propoxyphene AdvReac Severe ADR-Vomitin Verified 04/24/24 14:18 [From Darvocet-N] g latex AdvReac Intermediate ALGY-Rash Verified 04/24/24 14:18 Current Medications Generic Name Dose Route Start Last Admin Trade Name Freq PRN Reason Stop Dose Admin Duloxetine HCl 60 mg 05/24/24 09:00 05/24/24 08:40 Duloxetine 60 Mg Capsule PO 60 mg DAILY ALMITA Administration Heparin Sodium (Porcine) 5,000 unit 05/23/24 22:02 05/24/24 11:16 Heparin 5,000 Unit/Ml Inj 1 Ml SUBCUT 5,000 unit Q12H ALMITA Administration Insulin Human Lispro 0 unit 05/23/24 22:02 05/24/24 11:31 Insulin Lispro 100 Unit/1 Ml SUBCUT 6 unit WM&BEDTIME ALMITA Administration Protocol Isosorbide Mononitrate 30 mg 05/24/24 09:00 05/24/24 08:40 Isosorbide Mononitrate Er 30 Mg Tablet PO 30 mg DAILY ALMITA Administration Metoprolol Succinate 25 mg 05/24/24 09:00 05/24/24 08:40 Metoprolol Succinate Er (24 Hr) 25 Mg Tablet PO 25 mg BID ALMITA Administration Pantoprazole Sodium 40 mg 05/24/24 09:00 05/24/24 08:[address] 40 Mg Tablet PO 40 mg DAILY ALMITA Administration PFSH Acute 2 PFSH: Medical History (Updated 05/23/24 @ 22:56 by Lawson Diaz MD) Peritoneal dialysis catheter in place Uncontrolled type 2 diabetes mellitus Pleural effusion Anemia of chronic disease ESRD (end stage renal disease) PAD (peripheral artery disease) Diabetic neuropathy, type II diabetes mellitus Diabetic retinopathy Bereavement Major depressive disorder, recurrent, in partial remission Psychiatric care FH: total knee replacement left Essential hypertension HLA B27 (HLA B27 positive) High risk medication use Inflammatory arthritis Seronegative spondyloarthropathy Chronic insomnia See subjective note below. Chronic pain See subjective note below. Chronic post-traumatic stress disorder (PTSD) Generalized anxiety disorder Major depressive disorder, recurrent, moderate Surgical History History of cataract extraction History of hysterectomy for benign disease History of tonsillectomy History of appendectomy History of left knee replacement Family History Mother Hypertension Diabetes Psychiatric illness Thyroid disease Father , in his 50's Family history of premature coronary artery disease Hyperlipidemia Myocardial infarction Brother Hypertension Sister No problems noted. Denies family history of Rheumatoid arthritis Lupus Social History Smoking and tobacco/nicotine status: never used tobacco/nicotine Second hand smoke exposure: No Alcohol intake: never Substance/Drug Use: never Adopted: No Caregiver/support person: No Lives independently: No Household members: family service: No Current occupational status: unemployed and disabled Sexually active: Yes Do you think of yourself as: Straight/Heterosexual Current gender identity: Female Vitals/I&O/Wt Last Vital Signs Temp 98.1 F 05/24/24 11:24 Pulse 76 05/24/24 11:24 Resp 17 05/24/24 11:24 BP 122/69 05/24/24 11:24 Pulse Ox 98 05/24/24 11:24 O2 Del Method Room Air 05/24/24 11:24 05/23/24 05/24/24 05/24/24 22:59 06:59 14:59 Intake Total 100 / 100 360 / 360 Output Total 100 / 100 Balance 100 / 100 260 / 260 Weight last 48 hrs Weight 93.44 kg Weight 93.712 kg Weight 93.712 kg Weight 86.183 kg Physical Exam 2 Narrative: Obese sitting up. Afebrile blood pressure on low side. HEENT normocephalic/atraumatic. Neck is supple Right anterior chest wall permacath is clean and dry. Lungs are clear to auscultation bilaterally. Heart is regular. Abdomen is soft distended poor bowel sounds mild diffuse tenderness and a bandaged Tenckhoff catheter. Extremities no significant edema. Neuro awake alert oriented x 3. Data 05/24/24 04:39 05/24/24 04:39 Micro: Microbiology 05/23/24 19:25 Blood Culture - Preliminary Blood SPECIMEN COLLECTED 05/23/24 19:19 Blood Culture - Preliminary Blood SPECIMEN COLLECTED A&P Assessment and plan (1) ESRD (end stage renal disease) on dialysis: 53-year-old lady diabetes hypertension CHF end-stage renal disease. Patient was being transitioned to peritoneal dialysis unfortunately PD catheter has not been working well. Patient now here with abdominal tenderness and she had a leukocytosis. 1. Infection agree with UTI plus minus peritonitis please follow-up cell count and cultures from PD fluid. We considered giving stronger coverage such as vancomycin and gentamicin if her PD fluid is positive. 2. Anemia send iron studies. Continue Epogen. Consider transfusion 1 unit of blood. Will repeat CBC. Consider GI evaluation with pain and new anemia 3. Blood pressure on low side stop amlodipine 4. Potassium improved. Normal phosphorus. Case discussed in detail with Dr. Ramirez Patient was seen and examined using A/V equipment with the aid of a nurse. The patient consented to telehealth. Plan Antibiotics. Anemia evaluation. Consider GI evaluation. Consult Attestations 2 Medical Necessity Statement: Anemia UTI question of peritonitis ESRD diabetes and heart failure. Time Spent in Patient Care: Greater than 35 minutes (>than 50% of time spent in counselling and/or direct pt care on unit) . Coding Level of Care Code Acute Code for Chg Fwd Diagnoses ESRD (end stage renal disease) on dialysis N18.6; Z99.2
[2024-05-24 11:53] LABS: Appearance, Peritoneal Fluid Cloudy (Clear); Color, Peritoneal Fluid Pale Yellow (Pale Yellow)
[2024-05-24 12:30] LABS: Ferritin 769 ng/mL (15-150); Iron 8 ug/dL (37-145); Percent Saturation 11.9 % (20-50); Total Iron Binding Capacity 67 mcg/dl; Unsaturated Iron Binding 59 ug/dL (112-347)
[2024-05-24 12:36] LABS: Estmated Average Glucose 194; Hemoglobin A1C 8.4 % (4.0-6.0)
[2024-05-24 12:41] LABS: Hepatitis B Surface Antigen Non-Reactive (Nonreactive); Hepatitis C Virus Antibody Non-Reactive (Nonreactive)
[2024-05-24 12:59] LABS: Albumin Peritoneal Fluid 0.3 g/dL; Total Protein Peritoneal Fluid 0.6 g/dL
[2024-05-24] MEDS: vancomycin 1,000 MG in sodium chloride 0.9% 250 ML 250 MG IV (13:10)
--- NOTE | 2024-05-24 14:14 | P.PN_ITS ---
Subjective 2 Subjective: No acute vents overnight. Patient states she is feeling better. Continues to have abdominal pain on and off but better than before. States feeling less weak. Denies any nausea, vomiting, headache. Vitals/I&O/Wt Last Vital Signs Temp 98.1 F 05/24/24 11:24 Pulse 76 05/24/24 11:24 Resp 17 05/24/24 11:24 BP 122/69 05/24/24 11:24 Pulse Ox 98 05/24/24 11:24 O2 Del Method Room Air 05/24/24 11:24 05/23/24 05/24/24 05/24/24 22:59 06:59 14:59 Intake Total 100 / 100 480 / 480 Output Total 100 / 100 Balance 100 / 100 380 / 380 Weight last 48 hrs Weight 93.44 kg Weight 93.712 kg Weight 93.712 kg Weight 86.183 kg Physical Exam 2 Narrative: General: No acute distress, AO x3 HEENT: PERRLA, pupils bilaterally equal and reactive Chest: Normal vesicular breath sounds, no added sounds, equal good air entry bilaterally CVS: S1-S2 regular, no murmurs, no tachycardia, no gallops, no rubs Abdomen: Soft, generalized tenderness, no organomegaly, bowel sounds present, PD catheter in place with clean dressing Neuro: No focal deficits, no facial deformity, AO x3, power 5/5 in all limbs Data 05/24/24 04:39 05/24/24 04:39 Micro: Microbiology 05/23/24 23:45 Gram Stain - Final Peritoneal Fluid 05/23/24 19:25 Blood Culture - Preliminary Blood SPECIMEN COLLECTED 05/23/24 19:19 Blood Culture - Preliminary Blood SPECIMEN COLLECTED A&P Assessment and plan (1) Sepsis: Most likely in setting of cystitis along with PD peritonitis given abdominal tenderness, unable to drain peritoneal fluid for last 2 weeks. Follow-up blood culture, urine culture, MRSA swab, peritoneal fluid culture. Keep mean artery pressure 65. Also complaining of occasional episodes of diarrhea. Check stool studies. Rule out C. difficile. (2) Acute cystitis: Appreciate urinalysis, CT abdomen pelvis. Appreciate past culture history with history of UTI with E. coli in 03/22/2024. Also has history of strep UTI. Follow-up blood culture, urine culture. For now start patient on IV ceftriaxone 1 g daily. De-escalate antibiotics as per culture sensitivities. (3) Peritonitis due to infected peritoneal dialysis catheter: PD fluid found to have cell count of 244. But received after getting 2 doses of IV antibiotics. Follow-up fluid culture. Will plan to repeat fluid study in a.m. again. Follow-up MRSA swab. Add vancomycin. Will discuss further with patient regarding possible removal of PD catheter depending on the fluid culture results. (4) Anemia: Concerns for iron deficiency anemia. Appreciate vitamin B12 and folate levels. Hemoglobin below 7 today. Transfuse monitor PRBC. Target hemoglobin more than 7. Start on IV iron supplementation. Qualifiers: Anemia type: due to chronic kidney disease Chronic kidney disease stage: on chronic dialysis Qualified Code(s): N18.6 - End stage renal disease; D63.1 - Anemia in chronic kidney disease; Z99.2 - Dependence on renal dialysis (5) ESRD (end stage renal disease) on dialysis: On hemodialysis. With a trial of possible transition to peritoneal dialysis as an outpatient but being unsuccessful so far Appreciate nephrology recommendations. Monitor BMP daily. (6) Hypokalemia: Potassium levels are improving. Will replete 40 mg more. Magnesium level is normal. Monitor BMP daily. (7) CHF (congestive heart failure): Currently euvolemic. No echocardiogram on chart. Will check echocardiogram. Qualifiers: Heart failure chronicity: unspecified Heart failure type: unspecified Qualified Code(s): I50.9 - Heart failure, unspecified (8) Uncontrolled type 2 diabetes mellitus: Last A1c of 11.3. Repeat A1c 8.4. For now we will start on high-dose dose protocol Humalog. Will add Lantus depending on insulin requirement in the next 24 hours. Qualifiers: Glycemic state: with hyperglycemia Qualified Code(s): E11.65 - Type 2 diabetes mellitus with hyperglycemia (9) Chronic post-traumatic stress disorder (PTSD): Continue with home dose of duloxetine. (10) Peritoneal dialysis catheter in place: Plan Hypertension: Goal blood pressure less than 140/90 mg. Blood pressure reportedly remains low recently. For now continue with home dose of amlodipine, Imdur, metoprolol. Hold off on home dose of lisinopril and hydralazine. Will uptitrate for goal blood pressure. Renal diabetic dialysis diet Heparin 5000 every 12 daily for DVT prophylaxis Protonix OPD prophylaxis Full code Attestations 2 Medical Necessity Statement*: Requires further hospitalization for management of sepsis in setting of UTI, PD peritonitis in a patient with history of end-stage renal disease on hemodialysis being transitioned to peritoneal dialysis. Diagnoses Sepsis A41.9 Acute cystitis N30.00 Peritonitis due to infected peritoneal dialysis catheter T85.71XA; K65.9 Anemia due to chronic kidney disease, on chronic dialysis N18.6; D63.1; Z99.2 Anemia type: due to chronic kidney disease Chronic kidney disease stage: on chronic dialysis ESRD (end stage renal disease) on dialysis N18.6; Z99.2 Hypokalemia E87.6 Congestive heart failure, unspecified HF chronicity, unspecified heart failure type I50.9 Heart failure chronicity: unspecified Heart failure type: unspecified Uncontrolled type 2 diabetes mellitus with hyperglycemia E11.65 Glycemic state: with hyperglycemia Chronic post-traumatic stress disorder (PTSD) F43.12 Peritoneal dialysis catheter in place Z99.2
[2024-05-24] MEDS: iron sucrose 200 MG in sodium chloride 0.9% (100 ml) 100 ML 220 MG IV (14:31)
[2024-05-24 14:43] LABS: Hepatitis B Surface AB > 1000.0 (11.5-1000)
[2024-05-24] MEDS: potassium chloride ER 20 mEq Tablet 40 MEQ PO (15:34)
[2024-05-24 16:04] LABS: Glucose Point of Care 121 mg/dL (70-110)
[2024-05-24] MEDS: atorvastatin 40 mg Tablet PO (16:56)
[2024-05-24 20:46] LABS: C.Diff PCR (Lab) NEGATIVE (Negative)
[2024-05-24] MEDS: cefTRIAXone 1,000 mg SDV 1000 MG IVP (20:54)
[2024-05-24 21:07] LABS: Glucose Point of Care 139 mg/dL (70-110)
[2024-05-24] MEDS: ondansetron 2 mg/ML SDV 2 mL 4 MG IVP (21:14)
[2024-05-24] MEDS: morphine 4 mg/mL SDV 1 mL 2 MG IVP (21:15)
[2024-05-24 22:46] LABS: Alanine Aminotransferase 7 U/L (0-33); Albumin Level 2.6 g/dL (3.5-5.2); Alkaline Phosphatase 77 U/L (35-105); Anion Gap 15.9 (5-19); Aspartate Amino Transferase 17 U/L (0-32); Blood Urea Nitrogen 25 mg/dL (6-20); Calcium 7.8 mg/dL (8.5-10.5); Carbon Dioxide 26 mmol/L (22-29); Chloride 96 mmol/L (98-107); Creatinine Clr Calc Pharmacy 15.6733; Globulin 3.6 g/dL (1.3-4.6); Glucose 135 mg/dL (65-115); Magnesium 1.8 mg/dL (1.7-2.3); Osmolality Calculated 284 mOsm/kg (285-295); Potassium 3.9 mmol/L (3.5-5.1); Sodium 134 mmol/L (136-145); Total Bilirubin 0.3 mg/dL (0.15-1.2); Total Protein 6.2 g/dL (6.6-8.7)
[2024-05-24] MEDS: magnesium sulfate premix 1 GM/100 ML PIGGYBACK IV (23:15)
[2024-05-25] VITALS (10 sets, daily range): BP systolic 104–164; BP diastolic 66–86; PULSE 76–86; RESP 15–18; TEMP 36.4–36.9; O2SAT 91–97
[2024-05-25 04:33] LABS: Basophils # 0.1 10^3/uL (0.0-0.1); Basophils % 0.7 %; Eosinophils # 0.2 10^3/uL (0.0-0.8); Eosinophils % 3.1 %; Hematocrit 24.7 % (36-47); Lymphocytes # 1.7 10^3/uL (0.8-4.8); Lymphocytes % 25.1 %; Mean Corpuscular Hemoglobin 26.3 pg (27-33); Mean Corpuscular Volume 82.3 fl (85-98); Mean Platelet Volume 9.8 fL (7.4-10.4); Monocytes # 0.5 10^3/uL (0.2-0.9); Monocytes % 7.7 %; Neutrophils # 4.17 10^3/uL (1.8-7.7); Neutrophils % 61.9 %; Nucleated Red Blood Cells % 0 %; Platelet Count 469 10^3/cmm (157-399); Red Cell Distribution Width 14.8 % (12.1-15.1); White Blood Count 6.74 10^3/uL (3.29-11.43)
[2024-05-25 04:51] LABS: Alanine Aminotransferase 6 U/L (0-33); Albumin Level 2.3 g/dL (3.5-5.2); Alkaline Phosphatase 63 U/L (35-105); Anion Gap 16.9 (5-19); Aspartate Amino Transferase 14 U/L (0-32); Blood Urea Nitrogen 25 mg/dL (6-20); Calcium 7.8 mg/dL (8.5-10.5); Carbon Dioxide 24 mmol/L (22-29); Chloride 97 mmol/L (98-107); Creatinine Clr Calc Pharmacy 15.6733; Globulin 3.5 g/dL (1.3-4.6); Glucose 116 mg/dL (65-115); Magnesium 2.1 mg/dL (1.7-2.3); Osmolality Calculated 283 mOsm/kg (285-295); Potassium 3.9 mmol/L (3.5-5.1); Sodium 134 mmol/L (136-145); Total Bilirubin 0.2 mg/dL (0.15-1.2); Total Protein 5.8 g/dL (6.6-8.7)
[2024-05-25 06:31] LABS: Glucose Point of Care 108 mg/dL (70-110)
[2024-05-25] MEDS: duloxetine 60 mg Capsule PO (08:23)
[2024-05-25] MEDS: metoprolol succinate ER (24 HR) 25 mg Tablet PO ×2 (08:23→17:07)
[2024-05-25] MEDS: isosorbide mononitrate ER 30 mg Tablet PO (08:23)
[2024-05-25] MEDS: pantoprazole DR 40 mg Tablet PO (08:23)
[2024-05-25] MEDS: Dianeal low Ca w/1.5% dex 2,000 mL Bag 1000 ML INTRAPERIT (08:49)
--- NOTE | 2024-05-25 08:49 | P.PN_ITS ---
Subjective 2 Subjective: The patient was seen and examined., Patient complains of abdominal pain. Patient is able to eat. Patient is afebrile. Patient is not short of breath. She is feeling better but anxious about tenderness around Tenckhoff catheter. She denies any bloody stools. Medications: Reviewed: Yes Medication Review Details: Current Medications Acetaminophen (Acetaminophen 325 Mg Tablet) 650 mg PO Q6H PRN PRN Reason: Mild/Mod Pain Or Temp >/= 101 Atorvastatin Calcium (Atorvastatin 40 Mg Tablet) 40 mg PO 1700 COUNT INCLUDES THE [facility] Last Admin: 05/24/24 16:56 Dose: 40 mg Bisacodyl (Bisacodyl 5 Mg Tablet) 10 mg PO DAILY PRN; Protocol PRN Reason: Constipation (see protocol) Ceftriaxone Sodium (Ceftriaxone 1,000 Mg Sdv) 1,000 mg IVP Q24H COUNT INCLUDES THE [facility]; Protocol Last Admin: 05/24/24 20:54 Dose: 1,000 mg Duloxetine HCl (Duloxetine 60 Mg Capsule) 60 mg PO DAILY COUNT INCLUDES THE [facility] Last Admin: 05/25/24 08:23 Dose: 60 mg Glucagon (Glucagon 1 Mg/Ml Kit 1 Ml) 1 mg IM ONCE PRN; Protocol PRN Reason: Adult Acute Hypoglycemia Nursing Prot. Heparin Sodium (Porcine) (Heparin 5,000 Unit/Ml Inj 1 Ml) 5,000 unit SUBCUT Q12H COUNT INCLUDES THE [facility] Last Admin: 05/24/24 21:14 Dose: 5,000 unit Dextrose (D5w) 500 mls @ 0 mls/hr IV ONCE PRN; Protocol PRN Reason: Adult Acute Hypoglycemia Prot Dextrose (D10w) 125 mls @ 750 mls/hr IV PRN PRN; Protocol PRN Reason: Adult Acute Hypoglycemia Nursing Protocol Dextrose (D10w) 250 mls @ 1,000 mls/hr IV PRN PRN; Protocol PRN Reason: Adult Acute Hypoglycemia Nursing Protocol Vancomycin HCl 1,000 mg/ (Sodium Chloride) 250 mls @ 250 mls/hr IV Q48H COUNT INCLUDES THE [facility] Last Titration: 05/24/24 14:24 Dose: 0 mls/hr Iron Sucrose 200 mg/ Sodium (Chloride) 110 mls @ 220 mls/hr IV Q24H COUNT INCLUDES THE [facility] Stop: 05/28/24 14:29 Last Titration: 05/24/24 15:08 Dose: 0 mls/hr Insulin Human Lispro (Insulin Lispro 100 Unit/1 Ml) 0 unit SUBCUT WM&BEDTIME [facility]; Protocol Last Admin: 05/25/24 08:22 Dose: Not Given Isosorbide Mononitrate (Isosorbide Mononitrate Er 30 Mg Tablet) 30 mg PO DAILY COUNT INCLUDES THE [facility] Last Admin: 05/25/24 08:23 Dose: 30 mg Lactulose (Lactulose Oral Liq 20 Gm/30 Ml Udc) 10 gm PO DAILY PRN; Protocol PRN Reason: Constipation (see protocol) Magnesium Hydroxide (Magnesium Hydroxide 30 Ml Udc) 30 ml PO DAILY PRN; Protocol PRN Reason: Constipation (see protocol) Metoprolol Succinate (Metoprolol Succinate Er (24 Hr) 25 Mg Tablet) 25 mg PO BID COUNT INCLUDES THE [facility] Last Admin: 05/25/24 08:23 Dose: 25 mg Morphine Sulfate (Morphine 4 Mg/Ml Sdv 1 Ml) 2 mg IVP Q4H PRN PRN Reason: SEVERE PAIN Last Admin: 05/24/24 21:15 Dose: 2 mg Ondansetron HCl (Ondansetron 2 Mg/Ml Sdv 2 Ml) 4 mg IVP Q8H PRN PRN Reason: vomiting, or N/V if npo Last Admin: 05/24/24 21:14 Dose: 4 mg Pantoprazole Sodium (Pantoprazole Dr 40 Mg Tablet) 40 mg PO DAILY COUNT INCLUDES THE [facility] Last Admin: 05/25/24 08:23 Dose: 40 mg Sodium Chloride (Sodium Chloride 0.9% 100 Ml Bag) 50 ml IV PRN PRN PRN Reason: Blood transfusion prime and flush Stop: 05/25/24 12:51 Vitals/I&O/Wt Last Vital Signs Temp 97.8 F 05/25/24 07:30 Pulse 81 05/25/24 07:30 Resp 16 05/25/24 07:30 BP 149/75 05/25/24 07:30 Pulse Ox 93 05/25/24 07:30 O2 Del Method Room Air 05/25/24 07:30 05/24/24 05/25/24 05/25/24 22:59 06:59 14:59 Intake Total 820 / 1550 100 / 1650 120 / 120 Balance 820 / 1450 100 / 1550 120 / 120 Weight last 48 hrs Weight 94.007 kg Weight 93.44 kg Weight 93.712 kg Weight 93.712 kg Weight 86.183 kg Physical Exam 2 Narrative: She is comfortable sitting up. No apparent respiratory distress. Vital signs noted. Afebrile. HEENT normocephalic/atraumatic. Neck is supple Right anterior chest wall permacath is clean and dry. Lungs are clear to auscultation bilaterally. Heart is regular. Abdomen is soft distended poor bowel sounds mild tenderness by her Tenckhoff catheter. Extremities no significant edema. Neuro awake alert oriented x 3. Data 05/25/24 04:17 05/25/24 04:17 Micro: Microbiology 05/24/24 19:40 Stool Lactoferrin - Final Stool Occult Blood (FIT) - Final 05/23/24 19:25 Blood Culture - Preliminary Blood NEGATIVE TO DATE 05/23/24 19:19 Blood Culture - Preliminary Blood NEGATIVE TO DATE 05/23/24 23:45 Gram Stain - Final Peritoneal Fluid A&P Assessment and plan (1) ESRD (end stage renal disease) on dialysis: 53-year-old lady diabetes hypertension CHF end-stage renal disease. Patient was being transitioned to peritoneal dialysis unfortunately PD catheter has not been working well. Patient now here with abdominal tenderness and she had a leukocytosis. 1. Infection agree with UTI broad-spectrum antibiotics. Regarding question of peritonitis-yesterday's PD fluid had 244 white cells with 1 red cell and this was after she received antibiotics would like to continue to monitor a repeat PD cell count and culture. Will flush PD catheter let it drain for approximately 1 hour and then send a cell count and culture 2. Anemia -hemoglobin improved to 7.9. Ferritin 769 iron saturation 11.9% she is likely iron deficient and has a high ferritin from infection. Continue Epogen. Monitor hemoglobin. 3. ESRD plan hemodialysis today patient's potassium is 3.9 and sodium 134 monitor with dialysis. Calcium a little low at 7.8 phosphorus normal at 3 note that calcium corrects given her hypoalbuminemia of 2.3. Low LDL 4. Blood pressure is now stable. Case discussed in detail with the patient and her nurse. Patient was seen and examined using A/V equipment with the aid of a nurse. The patient consented to telehealth. Plan Antibiotics repeat PD cell count and culture. Hemodialysis today. Attestations 2 Medical Necessity Statement*: UTI, hyponatremia, abdominal pain, anemia, ESRD Time Spent in Patient Care: 16 - 35 minutes (>than 50% of time sp ent in counselling and/or direct pt care on unit) . Coding Level of Care Code Acute Code for Chg Fwd Diagnoses ESRD (end stage renal disease) on dialysis N18.6; Z99.2
[2024-05-25] MEDS: heparin, porcine 1,000 unit/mL INJ 10 mL 10000 UNIT INTRACATH (11:04)
[2024-05-25 11:19] LABS: Mononuclear #, Pertinoneal Fl 2.613 10^3/uL; Polynuclear # Cells, Perit 2.077 10^3/uL; RBC Pertioneal Fluid 5 10^3/uL; WBC Peritoneal Fluid 4690 /uL
[2024-05-25 11:25] LABS: Appearance, Peritoneal Fluid Clear (Clear); Color, Peritoneal Fluid Yellow (Pale Yellow); Cyto Order Verification No Order
[2024-05-25] MEDS: epoetin alfa 10,000 unit/mL INJ 10000 UNIT SUBCUT (11:48)
[2024-05-25 12:01] LABS: Glucose Point of Care 101 mg/dL (70-110)
--- NOTE | 2024-05-25 12:45 | PC.SOCIAL ---
IMM Update pg 2 of IMM Updated and reviewed w/ patient. Copy provided and copy dated, initialed and placed in chart.
--- NOTE | 2024-05-25 13:02 | P.PN_ITS ---
Subjective 2 Subjective: No acute events overnight. Today morning patient seen while getting hemodialysis. She states she is feeling slightly better but continued to have abdominal pain. Patient has remained afebrile and on room air. Blood pressures have remained stable. Did have 1 bowel movement yesterday. Underwent indwelling of PD fluid today but no return. Vitals/I&O/Wt Last Vital Signs Temp 98.1 F 05/25/24 12:10 Pulse 77 05/25/24 12:10 Resp 18 05/25/24 12:10 BP 139/77 05/25/24 12:10 Pulse Ox 93 05/25/24 07:30 O2 Del Method Room Air 05/25/24 07:30 05/24/24 05/25/24 05/25/24 22:59 06:59 14:59 Intake Total 820 / 1550 100 / 1650 120 / 120 Balance 820 / 1450 100 / 1550 120 / 120 Weight last 48 hrs Weight 94.007 kg Weight 94.007 kg Weight 93.44 kg Weight 93.712 kg Weight 93.712 kg Weight 86.183 kg Physical Exam 2 Narrative: General: No acute distress, AO x3 HEENT: PERRLA, pupils bilaterally equal and reactive Chest: Normal vesicular breath sounds, no added sounds, equal good air entry bilaterally CVS: S1-S2 regular, no murmurs, no tachycardia, no gallops, no rubs Abdomen: Soft, generalized tenderness, no organomegaly, bowel sounds present, PD catheter in place with clean dressing Neuro: No focal deficits, no facial deformity, AO x3, power 5/5 in all limbs Data 05/25/24 04:17 05/25/24 04:17 Micro: Microbiology 05/23/24 16:15 Urine Culture - Preliminary Urine,Clean Catch 05/24/24 19:40 Stool Lactoferrin - Final Stool Occult Blood (FIT) - Final 05/23/24 19:25 Blood Culture - Preliminary Blood NEGATIVE TO DATE 05/23/24 19:19 Blood Culture - Preliminary Blood NEGATIVE TO DATE 05/23/24 23:45 Gram Stain - Final Peritoneal Fluid A&P Assessment and plan (1) Sepsis: Most likely in setting of cystitis along with PD peritonitis given abdominal tenderness, unable to drain peritoneal fluid for last 2 weeks. Follow-up blood culture, urine culture, MRSA swab, peritoneal fluid culture from 05/23 and 05/25. Keep mean artery pressure 65. Awaiting stool studies. (2) Acute cystitis: Appreciate urinalysis, CT abdomen pelvis. Appreciate past culture history with history of UTI with E. coli in 03/22/2024. Also has history of strep UTI. Follow-up blood culture, urine culture. Given significant cell count on PD fluid switching from IV ceftriaxone to IV Zosyn. (3) Peritonitis due to infected peritoneal dialysis catheter: PD fluid cell count today more than 4000. Switch antibiotic to IV Zosyn. Continue with vancomycin. MRSA swab collected. Results pending. Will discontinue vancomycin if MRSA swab negative. Plan to continue vancomycin postdialysis. Will discuss further with patient regarding possible removal of PD catheter depending on the fluid culture results. (4) Anemia: Concerns for iron deficiency anemia. Received EPO as per nephrology. Appreciate vitamin B12 and folate levels. Post monitor blood transfusion. Target hemoglobin more than 7. Continue with IV iron supplementation. Qualifiers: Anemia type: due to chronic kidney disease Chronic kidney disease stage: on chronic dialysis Qualified Code(s): N18.6 - End stage renal disease; D63.1 - Anemia in chronic kidney disease; Z99.2 - Dependence on renal dialysis (5) ESRD (end stage renal disease) on dialysis: On hemodialysis. With a trial of possible transition to peritoneal dialysis as an outpatient but being unsuccessful so far Appreciate nephrology recommendations. Monitor BMP daily. (6) Hypokalemia: Resolved. Potassium stable. Recheck daily. (7) CHF (congestive heart failure): Currently euvolemic. No echocardiogram on chart. Will check echocardiogram. Qualifiers: Heart failure chronicity: unspecified Heart failure type: unspecified Qualified Code(s): I50.9 - Heart failure, unspecified (8) Uncontrolled type 2 diabetes mellitus: Last A1c of 11.3. Repeat A1c 8.4. Getting better controlled. For now we will start on high-dose dose protocol Humalog. Will add Lantus depending on insulin requirement in the next 24 hours. Qualifiers: Glycemic state: with hyperglycemia Qualified Code(s): E11.65 - Type 2 diabetes mellitus with hyperglycemia (9) Chronic post-traumatic stress disorder (PTSD): Continue with home dose of duloxetine. (10) Peritoneal dialysis catheter in place: Plan Hypertension: Goal blood pressure less than 140/90 mg. Blood pressure reportedly remains low recently. For now continue with home dose of amlodipine, Imdur, metoprolol. Hold off on home dose of lisinopril and hydralazine. Will uptitrate for goal blood pressure. Renal diabetic dialysis diet Heparin 5000 every 12 daily for DVT prophylaxis Protonix OPD prophylaxis Full code Attestations 2 Medical Necessity Statement*: Requires further hospitalization for management of sepsis in setting of PD peritonitis, UTI in a patient with history of end-stage renal disease on hemodialysis being transitioned to peritoneal dialysis as an outpatient, relative hypotension Diagnoses Sepsis A41.9 Acute cystitis N30.00 Peritonitis due to infected peritoneal dialysis catheter T85.71XA; K65.9 Anemia due to chronic kidney disease, on chronic dialysis N18.6; D63.1; Z99.2 Anemia type: due to chronic kidney disease Chronic kidney disease stage: on chronic dialysis ESRD (end stage renal disease) on dialysis N18.6; Z99.2 Hypokalemia E87.6 Congestive heart failure, unspecified HF chronicity, unspecified heart failure type I50.9 Heart failure chronicity: unspecified Heart failure type: unspecified Uncontrolled type 2 diabetes mellitus with hyperglycemia E11.65 Glycemic state: with hyperglycemia Chronic post-traumatic stress disorder (PTSD) F43.12 Peritoneal dialysis catheter in place Z99.2
[2024-05-25] MEDS: iron sucrose 200 MG in sodium chloride 0.9% (100 ml) 100 ML 220 MG IV (13:09)
[2024-05-25] MEDS: piperacillin-tazobactam 3.375 GM in sodium chloride 0.9% (plus) 50 ML IV (15:07)
[2024-05-25] MEDS: atorvastatin 40 mg Tablet PO (16:02)
[2024-05-25 16:57] LABS: Glucose Point of Care 127 mg/dL (70-110)
[2024-05-25] MEDS: vancomycin 1,000 MG in sodium chloride 0.9% 250 ML 250 MG IV (17:07)
[2024-05-25] MEDS: acetaminophen 325 mg Tablet 650 MG PO (17:16)
[2024-05-25 20:47] LABS: Glucose Point of Care 161 mg/dL (70-110)
[2024-05-25] MEDS: insulin lispro 100 unit/1 mL SUBCUT (21:03)
[2024-05-25] MEDS: heparin 5,000 unit/mL INJ 1 mL 5000 UNIT SUBCUT (21:03)
[2024-05-26] VITALS (10 sets, daily range): BP systolic 123–152; BP diastolic 63–79; PULSE 74–85; RESP 15–17; TEMP 36.6–37.1; O2SAT 94–98
[2024-05-26] MEDS: piperacillin-tazobactam 3.375 GM in sodium chloride 0.9% (plus) 50 ML IV ×2 (02:56→15:35)
[2024-05-26 05:32] LABS: Basophils # 0.1 10^3/uL (0.0-0.1); Eosinophils # 0.1 10^3/uL (0.0-0.8); Eosinophils % 1.3 %; Hematocrit 25.8 % (36-47); Lymphocytes # 1.8 10^3/uL (0.8-4.8); Lymphocytes % 19.8 %; Mean Corpuscular HGB Conc 31.4 g/dL (30-55); Mean Corpuscular Hemoglobin 26.6 pg (27-33); Mean Corpuscular Volume 84.6 fl (85-98); Mean Platelet Volume 9.7 fL (7.4-10.4); Monocytes # 0.6 10^3/uL (0.2-0.9); Monocytes % 6.1 %; Neutrophils # 6.32 10^3/uL (1.8-7.7); Neutrophils % 67.9 %; Nucleated Red Blood Cells % 0 %; Platelet Count 505 10^3/cmm (157-399); Red Blood Count 3.05 10^6/uL (3.85-5.65); Red Cell Distribution Width 14.9 % (12.1-15.1)
[2024-05-26 06:14] LABS: Alanine Aminotransferase < 5 U/L (0-33); Albumin Level 2.2 g/dL (3.5-5.2); Alkaline Phosphatase 62 U/L (35-105); Anion Gap 17.3 (5-19); Aspartate Amino Transferase 11 U/L (0-32); Blood Urea Nitrogen 14 mg/dL (6-20); Calcium 7.8 mg/dL (8.5-10.5); Carbon Dioxide 24 mmol/L (22-29); Chloride 100 mmol/L (98-107); Creatinine Clr Calc Pharmacy 22.9031; Globulin 3.7 g/dL (1.3-4.6); Glomerular Filtration Rate 15.2 mL/min (90-130); Glucose 97 mg/dL (65-115); Magnesium 1.8 mg/dL (1.7-2.3); Osmolality Calculated 284 mOsm/kg (285-295); Phosphorus 2.8 mg/dL (2.5-4.5); Potassium 4.3 mmol/L (3.5-5.1); Sodium 137 mmol/L (136-145); Total Bilirubin 0.3 mg/dL (0.15-1.2); Total Protein 5.9 g/dL (6.6-8.7)
[2024-05-26 06:27] LABS: Glucose Point of Care 93 mg/dL (70-110)
[2024-05-26] MEDS: acetaminophen 325 mg Tablet 650 MG PO ×3 (06:58→23:47)
[2024-05-26] MEDS: pantoprazole DR 40 mg Tablet PO (08:53)
[2024-05-26] MEDS: duloxetine 60 mg Capsule PO (08:53)
[2024-05-26] MEDS: metoprolol succinate ER (24 HR) 25 mg Tablet PO ×2 (08:54→17:21)
[2024-05-26] MEDS: isosorbide mononitrate ER 30 mg Tablet PO (08:54)
--- NOTE | 2024-05-26 09:12 | P.PN_ITS ---
Subjective 2 Subjective: She is status post dialysis yesterday. Abdominal pain continues. Not eating well nausea. No shortness of breath. Medications: Reviewed: Yes Medication Review Details: Current Medications Acetaminophen (Acetaminophen 325 Mg Tablet) 650 mg PO Q6H PRN PRN Reason: Mild/Mod Pain Or Temp >/= 101 Last Admin: 05/26/24 06:58 Dose: 650 mg Atorvastatin Calcium (Atorvastatin 40 Mg Tablet) 40 mg PO 1700 [facility] Last Admin: 05/25/24 16:02 Dose: 40 mg Bisacodyl (Bisacodyl 5 Mg Tablet) 10 mg PO DAILY PRN; Protocol PRN Reason: Constipation (see protocol) Duloxetine HCl (Duloxetine 60 Mg Capsule) 60 mg PO DAILY [facility] Last Admin: 05/26/24 08:53 Dose: 60 mg Glucagon (Glucagon 1 Mg/Ml Kit 1 Ml) 1 mg IM ONCE PRN; Protocol PRN Reason: Adult Acute Hypoglycemia Nursing Prot. Heparin Sodium (Porcine) (Heparin 5,000 Unit/Ml Inj 1 Ml) 5,000 unit SUBCUT Q12H [facility] Last Admin: 05/25/24 21:03 Dose: 5,000 unit Dextrose (D5w) 500 mls @ 0 mls/hr IV ONCE PRN; Protocol PRN Reason: Adult Acute Hypoglycemia Prot Dextrose (D10w) 125 mls @ 750 mls/hr IV PRN PRN; Protocol PRN Reason: Adult Acute Hypoglycemia Nursing Protocol Dextrose (D10w) 250 mls @ 1,000 mls/hr IV PRN PRN; Protocol PRN Reason: Adult Acute Hypoglycemia Nursing Protocol Iron Sucrose 200 mg/ Sodium (Chloride) 110 mls @ 220 mls/hr IV Q24H [facility] Stop: 05/28/24 14:29 Last Infusion: 05/25/24 13:39 Dose: Infused Vancomycin HCl 1,000 mg/ (Sodium Chloride) 250 mls @ 250 mls/hr IV POST DIALYSIS [facility] Last Infusion: 05/25/24 19:18 Dose: Infused Piperacillin Sod/Tazobactam (Sod 3.375 gm/ Sodium Chloride) 50 mls @ 12.5 mls/hr IV Q12H [facility]; Protocol Last Infusion: 05/26/24 06:55 Dose: Infused Insulin Human Lispro (Insulin Lispro 100 Unit/1 Ml) 0 unit SUBCUT WM&BEDTIME [facility]; Protocol Last Admin: 05/26/24 08:38 Dose: Not Given Isosorbide Mononitrate (Isosorbide Mononitrate Er 30 Mg Tablet) 30 mg PO DAILY [facility] Last Admin: 05/26/24 08:54 Dose: 30 mg Lactulose (Lactulose Oral Liq 20 Gm/30 Ml Udc) 10 gm PO DAILY PRN; Protocol PRN Reason: Constipation (see protocol) Magnesium Hydroxide (Magnesium Hydroxide 30 Ml Udc) 30 ml PO DAILY PRN; Protocol PRN Reason: Constipation (see protocol) Metoprolol Succinate (Metoprolol Succinate Er (24 Hr) 25 Mg Tablet) 25 mg PO BID [facility] Last Admin: 05/26/24 08:54 Dose: 25 mg Ondansetron HCl (Ondansetron 2 Mg/Ml Sdv 2 Ml) 4 mg IVP Q8H PRN PRN Reason: vomiting, or N/V if npo Last Admin: 05/24/24 21:14 Dose: 4 mg Pantoprazole Sodium (Pantoprazole Dr 40 Mg Tablet) 40 mg PO DAILY [facility] Last Admin: 05/26/24 08:53 Dose: 40 mg Vitals/I&O/Wt Last Vital Signs Temp 98.1 F 05/26/24 07:21 Pulse 82 05/26/24 08:40 Resp 16 05/26/24 08:40 BP 152/78 05/26/24 07:21 Pulse Ox 97 05/26/24 08:40 O2 Del Method Room Air 05/26/24 08:40 05/25/24 05/26/24 05/26/24 22:59 06:59 14:59 Intake Total 1290 / 1520 50 / 1570 240 / 240 Output Total 2550 / 2550 Balance -1260 / -1030 50 / -980 240 / 240 Weight last 48 hrs Weight 96.343 kg Weight 94.4 kg Weight 94.007 kg Weight 94.007 kg Weight 93.44 kg Physical Exam 2 Narrative: She is lying in bed. No apparent respiratory distress. Vital signs noted. Afebrile. HEENT normocephalic/atraumatic. Neck is supple Right anterior chest wall permacath is clean and dry. Lungs are clear to auscultation bilaterally. Heart is regular. Abdomen is soft distended poor bowel sounds, diffuse mild tenderness by her Tenckhoff catheter. Extremities no significant edema. Neuro awake alert oriented x 3. Data 08/10/24 05:03 05/26/24 05:03 Micro: Microbiology 05/25/24 10:59 Gram Stain - Final Peritoneal Fluid 05/23/24 23:45 Gram Stain - Final Peritoneal Fluid Body Fluid Culture - Preliminary 05/23/24 16:15 Urine Culture - Preliminary Urine,Clean Catch A&P Assessment and plan (1) ESRD (end stage renal disease) on dialysis: 53-year-old lady diabetes hypertension CHF end-stage renal disease. Patient was being transitioned to peritoneal dialysis unfortunately PD catheter has not been working well. Patient now here with abdominal tenderness and she had a leukocytosis. 1. Infection agree with UTI broad-spectrum antibiotics. Regarding question of peritonitis-the PD fluid on May they had 244 white cells with 1 red cell and this was after she received antibiotics -Yesterday in May 25 peritoneal white cell count was 4690. And it is not draining well. We can repeat it today. Can consider an ID consult however the patient is agreeable to removing PD catheter I think that would be advisable. Will flush PD catheter let it drain for approximately 1 hour and then send a cell count and culture 2. Anemia -hemoglobin improved to 8.1 Ferritin 769 iron saturation 11.9% she is likely iron deficient and has a high ferritin from infection. Continue Epogen. Monitor hemoglobin. 3. ESRD -she is status post hemodialysis yesterday potassium is stable bicarbonate is 24 creatinine 3.2 Calcium a little low at 7.8 phosphorus normal at 2.8 - note that calcium corrects given her hypoalbuminemia of 2.3. Low LDL 4. Blood pressure is now stable. Case discussed in detail with the patient, her nurse, and Dr Hawkins Patient was seen and examined using A/V equipment with the aid of a nurse. The patient consented to telehealth. Plan Antibiotics repeat PD cell count and culture. Likely remove PD catheter. Attestations 2 Medical Necessity Statement*: Peritonitis Time Spent in Patient Care: 16 - 35 minutes Coding Level of Care Code Acute Code for Chg Fwd Diagnoses ESRD (end stage renal disease) on dialysis N18.6; Z99.2
[2024-05-26] MEDS: Dianeal low Ca w/1.5% dex 2,000 mL Bag 1000 ML INTRAPERIT (10:15)
[2024-05-26] MEDS: heparin 5,000 unit/mL INJ 1 mL 5000 UNIT SUBCUT ×2 (10:15→21:05)
[2024-05-26 11:48] LABS: Glucose Point of Care 122 mg/dL (70-110)
[2024-05-26 12:25] LABS: Cyto Order Verification No Order
[2024-05-26 12:29] LABS: Methicillin-Resist S.aureu PCR NOT DETECTED (NOT DETECTED)
[2024-05-26 13:44] LABS: Appearance, Peritoneal Fluid Cloudy (Clear); Color, Peritoneal Fluid Pale Yellow (Pale Yellow)
[2024-05-26 13:45] LABS: RBC Pertioneal Fluid 3 10^3/uL; WBC Peritoneal Fluid 5184 /uL
[2024-05-26 13:46] LABS: Mononuclear #, Pertinoneal Fl 2.176 10^3/uL; Polynuclear # Cells, Perit 3.008 10^3/uL
[2024-05-26 13:47] LABS: Pathology Referral Yes
[2024-05-26] MEDS: iron sucrose 200 MG in sodium chloride 0.9% (100 ml) 100 ML 220 MG IV (14:01)
--- NOTE | 2024-05-26 14:36 | P.CONIM_ITS ---
Providers/Reason For Consult 2 Consulting Physician/Specialty*: General surgery Reason for Consult*: Need for removal of peritoneal dialysis catheter Attending Physician: Lawson Diaz MD Primary Care Provider: SEGUN Mulligan History of Present Illness History of Present Illness Lizy Evans is a 53 year old female with history of kidney disease on dialysis, currently receiving hemodialysis but she also has a peritoneal dialysis catheter. I was consulted for evaluation for removal of peritoneal dialysis catheter due to suspicion of possible peritonitis due to peritoneal dialysis catheter. Patient is currently stable. Review of Systems 2 General: Reports: 10 or more systems reviewed and unremarkable except in HPI and below Medications/Allergies Home Medications Medication Instructions Recorded Confirmed Last Taken Type lancets 33 gauge (BD Ultra Fine #100 ea 12/05/19 05/24/24 Unknown Rx Lancets) flash glucose scanning reader #1 ea 05/29/21 05/24/24 Unknown Rx (FreeStyle Palak 2 Liberty) pen needle, diabetic 32 gauge x #100 ea 04/04/23 05/24/24 Unknown Rx 1/4 atorvastatin 40 mg tablet See Rx Instructions .Route 06/08/23 05/23/24 Unknown Rx .COMPLEX #60 tabs diabetic shoes with 3 inserts #1 ea 08/22/23 05/24/24 Unknown Rx duloxetine 60 mg capsule,delayed 60 mg PO DAILY #90 caps 02/06/24 05/23/24 Unknown Rx release (Cymbalta) insulin regular hum U-500 conc 500 See Rx Instructions .Route 03/30/24 05/23/24 Unknown Rx unit/mL(3 mL) subcut pen (Humulin .COMPLEX #48 mL R U-500 (Conc) Insulin Kwikpen) omeprazole 20 mg capsule,delayed 20 mg PO DAILY 04/06/24 05/23/24 Unknown History release amlodipine 10 mg tablet See Rx Instructions .Route 04/09/24 05/23/24 Unknown Rx .COMPLEX #90 tabs hydralazine 100 mg tablet 100 mg PO Q8H #90 tabs 04/09/24 05/23/24 Unknown Rx isosorbide mononitrate 30 mg 30 mg PO DAILY #90 tabs 04/09/24 05/23/24 Unknown Rx tablet,extended release 24 hr lisinopril 10 mg tablet 40 mg (4 x 10 mg) PO DAILY #90 tabs 04/09/24 05/23/24 Unknown Rx metoprolol succinate 25 mg 25 mg PO BID 90 days #180 tabs 04/09/24 05/23/24 Unknown Rx tablet,extended release 24 hr flash glucose sensor (FreeStyle #6 ea 04/24/24 05/24/24 Unknown Rx Palak 2 Sensor kit) cetirizine 10 mg tablet 10 mg PO DAILY PRN Allergy Symptoms 05/23/24 05/23/24 Unknown History Allergies Allergy/AdvReac Type Severity Reaction Status Date / Time venom-honey bee Allergy Severe ALGY-Redness Verified 04/24/24 14:18 of Skin marijuana (cannabis) Allergy Intermediate ADR-Nausea Verified 04/24/24 14:18 codeine AdvReac Severe ADR-Vomitin Verified 04/24/24 14:18 g morphine AdvReac Severe ADR-Vomitin Verified 04/24/24 14:18 g propoxyphene AdvReac Severe ADR-Vomitin Verified 04/24/24 14:18 [From Veronica-Yulia] g latex AdvReac Intermediate ALGY-Rash Verified 04/24/24 14:18 Current Medications Generic Name Dose Route Start Last Admin Trade Name Freq PRN Reason Stop Dose Admin Acetaminophen 650 mg 05/23/24 22:02 05/26/24 06:58 Acetaminophen 325 Mg Tablet PO 650 mg Q6H PRN Administration Mild/Mod Pain Or Temp >/= 101 Atorvastatin Calcium 40 mg 05/24/24 17:00 05/25/24 16:02 Atorvastatin 40 Mg Tablet PO 40 mg 1700 ALMITA Administration Duloxetine HCl 60 mg 05/24/24 09:00 05/26/24 08:53 Duloxetine 60 Mg Capsule PO 60 mg DAILY ALMITA Administration Heparin Sodium (Porcine) 5,000 unit 05/23/24 22:02 05/26/24 10:15 Heparin 5,000 Unit/Ml Inj 1 Ml SUBCUT 5,000 unit Q12H ALMITA Administration Iron Sucrose 200 mg/ Sodium 110 mls @ 220 mls/hr 05/24/24 14:00 05/26/24 14:01 Chloride IV 05/28/24 14:29 220 mls/hr Q24H ALMITA Administration Vancomycin HCl 1,000 mg/ 250 mls @ 250 mls/hr 05/25/24 16:15 05/25/24 19:18 Sodium Chloride IV Infused POST DIALYSIS ALMITA Infusion Piperacillin Sod/Tazobactam 50 mls @ 12.5 mls/hr 05/26/24 03:00 05/26/24 06:55 Sod 3.375 gm/ Sodium Chloride IV Infused Q12H ALMITA Infusion Protocol As Directed Insulin Human Lispro 0 unit 05/23/24 22:02 05/26/24 12:08 Insulin Lispro 100 Unit/1 Ml SUBCUT Not Given WM&BEDTIME ALMITA Protocol Isosorbide Mononitrate 30 mg 05/24/24 09:00 05/26/24 08:54 Isosorbide Mononitrate Er 30 Mg Tablet PO 30 mg DAILY ALMITA Administration Metoprolol Succinate 25 mg 05/24/24 09:00 05/26/24 08:54 Metoprolol Succinate Er (24 Hr) 25 Mg Tablet PO 25 mg BID ALMITA Administration Ondansetron HCl 4 mg 05/23/24 22:02 05/24/24 21:14 Ondansetron 2 Mg/Ml Sdv 2 Ml IVP 4 mg Q8H PRN Administration vomiting, or N/V if npo Pantoprazole Sodium 40 mg 05/24/24 09:00 05/26/24 08:[address] 40 Mg Tablet PO 40 mg DAILY ALMITA Administration Peritoneal Dialysis Solution 1,000 ml 05/26/24 09:30 05/26/24 10:15 Dianeal Low Ca W/1.5% Dex 2,000 Ml Bag INTRAPERIT 1,000 ml ONCE ALMITA Administration PFSH Acute 2 PFSH: Medical History (Updated 05/24/24 @ 14:15 by Lawson Diaz MD) Peritoneal dialysis catheter in place Uncontrolled type 2 diabetes mellitus Pleural effusion Anemia of chronic disease ESRD (end stage renal disease) PAD (peripheral artery disease) Diabetic neuropathy, type II diabetes mellitus Diabetic retinopathy Bereavement Major depressive disorder, recurrent, in partial remission Psychiatric care FH: total knee replacement left Essential hypertension HLA B27 (HLA B27 positive) High risk medication use Inflammatory arthritis Seronegative spondyloarthropathy Chronic insomnia See subjective note below. Chronic pain See subjective note below. Chronic post-traumatic stress disorder (PTSD) Generalized anxiety disorder Major depressive disorder, recurrent, moderate Surgical History History of cataract extraction History of hysterectomy for benign disease History of tonsillectomy History of appendectomy History of left knee replacement Family History Mother Hypertension Diabetes Psychiatric illness Thyroid disease Father , in his 50's Family history of premature coronary artery disease Hyperlipidemia Myocardial infarction Brother Hypertension Sister No problems noted. Denies family history of Rheumatoid arthritis Lupus Social History Smoking and tobacco/nicotine status: never used tobacco/nicotine Second hand smoke exposure: No Alcohol intake: never Substance/Drug Use: never Adopted: No Caregiver/support person: No Lives independently: No Household members: family service: No Current occupational status: unemployed and disabled Sexually active: Yes Do you think of yourself as: Straight/Heterosexual Current gender identity: Female Vitals/I&O/Wt Last Vital Signs Temp 97.9 F 05/26/24 11:00 Pulse 82 05/26/24 11:00 Resp 15 05/26/24 11:00 BP 123/63 05/26/24 11:00 Pulse Ox 96 05/26/24 11:00 O2 Del Method Room Air 05/26/24 11:00 05/25/24 05/26/24 05/26/24 22:59 06:59 14:59 Intake Total 1290 / 1520 50 / 1570 360 / 360 Output Total 2550 / 2550 Balance -1260 / -1030 50 / -980 360 / 360 Weight last 48 hrs Weight 212 lb 6.4 oz Weight 212 lb 6.4 oz Weight 208 lb 1.862 oz Weight 207 lb 4 oz Weight 207 lb 4 oz Physical Exam 2 GI: OTHER: Abdomen is soft, nontender, nondistended, there is a peritoneal dialysis catheter in place, surgical incisions appear to be well-healed. Data 05/26/24 05:03 05/26/24 05:03 Micro: Microbiology 05/26/24 11:57 Gram Stain - Final Peritoneal Fluid 05/25/24 10:59 Gram Stain - Final Peritoneal Fluid Body Fluid Culture - Preliminary 05/23/24 23:45 Gram Stain - Final Peritoneal Fluid Body Fluid Culture - Preliminary 05/23/24 16:15 Urine Culture - Final Urine,Clean Catch A&P Assessment and plan (1) ESRD (end stage renal disease) on dialysis: (2) Peritoneal dialysis catheter in place: Plan This is a 53-year-old female with history of chronic kidney disease on dialysis who I was consulted for evaluation for removal of peritoneal dialysis catheter due to peritonitis due to peritoneal dialysis catheter. I have discussed all recent benefits of the procedure including the risk of injury to surrounding structures, bleeding, infection, need for additional operations, need for replacement of catheter, peritoneal leak, fistula formation. Patient shows understanding wishes to proceed with removal. We will schedule the case for tomorrow for removal of peritoneal dialysis catheter and possible diagnostic laparoscopy as needed. Patient will be n.p.o. after midnight. -N.p.o. after midnight for peritoneal dialysis catheter removal Coding Level of Care Code 46523 Diagnoses ESRD (end stage renal disease) on dialysis N18.6; Z99.2 Peritoneal dialysis catheter in place Z99.2
--- NOTE | 2024-05-26 15:26 | P.PN_ITS ---
Subjective 2 Subjective: No acute events overnight. Patient has remained hemodynamically stable and afebrile. Underwent dialysis yesterday which she tolerated well. Today morning she states she is feeling better but continues to complain of pain in abdomen. Vitals/I&O/Wt Last Vital Signs Temp 97.9 F 05/26/24 11:00 Pulse 82 05/26/24 11:00 Resp 15 05/26/24 11:00 BP 123/63 05/26/24 11:00 Pulse Ox 96 05/26/24 11:00 O2 Del Method Room Air 05/26/24 11:00 05/26/24 05/26/24 05/26/24 06:59 14:59 22:59 Intake Total 50 / 2570 1360 / 1360 Output Total 3050 / 3050 Balance 50 / -30 -1690 / -1690 Weight last 48 hrs Weight 96.343 kg Weight 96.343 kg Weight 94.4 kg Weight 94.007 kg Weight 94.007 kg Physical Exam 2 Narrative: General: No acute distress, AO x3 HEENT: PERRLA, pupils bilaterally equal and reactive Chest: Normal vesicular breath sounds, no added sounds, equal good air entry bilaterally CVS: S1-S2 regular, no murmurs, no tachycardia, no gallops, no rubs Abdomen: Soft, generalized tenderness, no organomegaly, bowel sounds present, PD catheter in place with clean dressing Neuro: No focal deficits, no facial deformity, AO x3, power 5/5 in all limbs Data 05/26/24 05:03 05/26/24 05:03 Micro: Microbiology 05/26/24 11:57 Gram Stain - Final Peritoneal Fluid 05/25/24 10:59 Gram Stain - Final Peritoneal Fluid Body Fluid Culture - Preliminary 05/23/24 23:45 Gram Stain - Final Peritoneal Fluid Body Fluid Culture - Preliminary 05/23/24 16:15 Urine Culture - Final Urine,Clean Catch A&P Assessment and plan (1) Sepsis: Most likely in setting of cystitis along with PD peritonitis given abdominal tenderness, unable to drain peritoneal fluid for last 2 weeks. Follow-up blood culture, urine culture, MRSA swab, peritoneal fluid culture from 05/23 and 05/25. Keep mean artery pressure 65. Awaiting stool studies. (2) Acute cystitis: Appreciate urinalysis, CT abdomen pelvis. Appreciate past culture history with history of UTI with E. coli in 03/22/2024. Also has history of strep UTI. Follow-up blood culture, urine culture. Given significant cell count on PD fluid switching from IV ceftriaxone to IV Zosyn. (3) Peritonitis due to infected peritoneal dialysis catheter: PD fluid cell count today more than 4000. Switch antibiotic to IV Zosyn. Continue with vancomycin. MRSA swab collected. Results pending. Will discontinue vancomycin if MRSA swab negative. Plan to continue vancomycin postdialysis. Will discuss further with patient regarding possible removal of PD catheter depending on the fluid culture results. (4) Anemia: Concerns for iron deficiency anemia. Received EPO as per nephrology. Appreciate vitamin B12 and folate levels. Post monitor blood transfusion. Target hemoglobin more than 7. Continue with IV iron supplementation. Qualifiers: Anemia type: due to chronic kidney disease Chronic kidney disease stage: on chronic dialysis Qualified Code(s): N18.6 - End stage renal disease; D63.1 - Anemia in chronic kidney disease; Z99.2 - Dependence on renal dialysis (5) ESRD (end stage renal disease) on dialysis: On hemodialysis. With a trial of possible transition to peritoneal dialysis as an outpatient but being unsuccessful so far Appreciate nephrology recommendations. Monitor BMP daily. (6) Hypokalemia: Resolved. Potassium stable. Recheck daily. (7) CHF (congestive heart failure): Currently euvolemic. No echocardiogram on chart. Will check echocardiogram. Qualifiers: Heart failure chronicity: unspecified Heart failure type: unspecified Qualified Code(s): I50.9 - Heart failure, unspecified (8) Uncontrolled type 2 diabetes mellitus: Last A1c of 11.3. Repeat A1c 8.4. Getting better controlled. For now we will start on high-dose dose protocol Humalog. Will add Lantus depending on insulin requirement in the next 24 hours. Qualifiers: Glycemic state: with hyperglycemia Qualified Code(s): E11.65 - Type 2 diabetes mellitus with hyperglycemia (9) Chronic post-traumatic stress disorder (PTSD): Continue with home dose of duloxetine. (10) Peritoneal dialysis catheter in place: Plan Hypertension: Goal blood pressure less than 140/90 mg. Blood pressure reportedly remains low recently. For now continue with home dose of amlodipine, Imdur, metoprolol. Hold off on home dose of lisinopril and hydralazine. Will uptitrate for goal blood pressure. Plan for the day: Previous cultures so far negative. Peritoneal fluid appreciated with cell count of more than 4000. Repeat cell count sent today. Given extremely high white count concerning for significant PD peritonitis, persistent abdominal pain even though patient is on IV antibiotics, access already in place for hemodialysis potential removal of PD catheter were discussed in detail with nephrology and patient. Patient is agreeable for removal of PD catheter. Will consult surgery for PD catheter removal. MRSA swab negative. Will discontinue vancomycin. Continue with IV iron supplementation. Blood pressure stable. Continue with current oral antihypertensive. Renal diabetic dialysis diet Heparin 5000 every 12 daily for DVT prophylaxis Protonix OPD prophylaxis Full code Attestations 2 Medical Necessity Statement*: Requires further hospitalization for management of sepsis in setting of UTI, PD peritonitis while removal of PD catheter is awaited, blood cultures and fluid cultures are followed Diagnoses Sepsis A41.9 Acute cystitis N30.00 Peritonitis due to infected peritoneal dialysis catheter T85.71XA; K65.9 Anemia due to chronic kidney disease, on chronic dialysis N18.6; D63.1; Z99.2 Anemia type: due to chronic kidney disease Chronic kidney disease stage: on chronic dialysis ESRD (end stage renal disease) on dialysis N18.6; Z99.2 Hypokalemia E87.6 Congestive heart failure, unspecified HF chronicity, unspecified heart failure type I50.9 Heart failure chronicity: unspecified Heart failure type: unspecified Uncontrolled type 2 diabetes mellitus with hyperglycemia E11.65 Glycemic state: with hyperglycemia Chronic post-traumatic stress disorder (PTSD) F43.12 Peritoneal dialysis catheter in place Z99.2
[2024-05-26] MEDS: atorvastatin 40 mg Tablet PO (16:04)
[2024-05-26 17:27] LABS: Glucose Point of Care 113 mg/dL (70-110)
[2024-05-26 20:37] LABS: Glucose Point of Care 130 mg/dL (70-110)
[2024-05-27] VITALS (15 sets, daily range): BP systolic 136–169; BP diastolic 75–94; PULSE 75–86; RESP 12–20; TEMP 36.5–36.9; O2SAT 95–100
[2024-05-27] MEDS: piperacillin-tazobactam 3.375 GM in sodium chloride 0.9% (plus) 50 ML IV (02:48)
[2024-05-27 05:49] LABS: Basophils # 0.1 10^3/uL (0.0-0.1); Basophils % 0.8 %; Eosinophils # 0.2 10^3/uL (0.0-0.8); Eosinophils % 1.7 %; Hematocrit 27.7 % (36-47); Lymphocytes # 1.9 10^3/uL (0.8-4.8); Lymphocytes % 15.8 %; Mean Corpuscular HGB Conc 32.1 g/dL (30-55); Mean Corpuscular Hemoglobin 26.4 pg (27-33); Mean Corpuscular Volume 82.2 fl (85-98); Mean Platelet Volume 9.3 fL (7.4-10.4); Monocytes # 0.6 10^3/uL (0.2-0.9); Monocytes % 5.4 %; Neutrophils # 8.62 10^3/uL (1.8-7.7); Neutrophils % 72.9 %; Nucleated Red Blood Cells % 0 %; Platelet Count 574 10^3/cmm (157-399); Red Blood Count 3.37 10^6/uL (3.85-5.65); Red Cell Distribution Width 14.7 % (12.1-15.1); White Blood Count 11.82 10^3/uL (3.29-11.43)
[2024-05-27 06:07] LABS: Alanine Aminotransferase < 5 U/L (0-33); Albumin Level 2.4 g/dL (3.5-5.2); Alkaline Phosphatase 66 U/L (35-105); Anion Gap 17.4 (5-19); Aspartate Amino Transferase 10 U/L (0-32); Blood Urea Nitrogen 19 mg/dL (6-20); Calcium 8.1 mg/dL (8.5-10.5); Carbon Dioxide 26 mmol/L (22-29); Chloride 99 mmol/L (98-107); Creatinine Clr Calc Pharmacy 17.6983; Globulin 3.7 g/dL (1.3-4.6); Glomerular Filtration Rate 11.4 mL/min (90-130); Glucose 108 mg/dL (65-115); Magnesium 1.8 mg/dL (1.7-2.3); Osmolality Calculated 289 mOsm/kg (285-295); Phosphorus 3.2 mg/dL (2.5-4.5); Potassium 4.4 mmol/L (3.5-5.1); Sodium 138 mmol/L (136-145); Total Bilirubin 0.2 mg/dL (0.15-1.2); Total Protein 6.1 g/dL (6.6-8.7)
[2024-05-27 06:26] LABS: Glucose Point of Care 105 mg/dL (70-110)
--- NOTE | 2024-05-27 07:28 | W.PM.OPSUD ---
Surgery/Procedure H&P Update DATE OF PROCEDURE: May 27, 2024 DATE H&P PERFORMED: 05/26/24 H&P UPDATE INFORMATION: I have reviewed H&P completed within last 30 days, I have examined patient prior to procedure, No changes to prior documentation and H&P is in [facility] EMR on date indicated PLANNED PROCEDURE: Operation Date: 05/27/24 09:10 Proposed Procedures p Dialysis Catheter Removal Hemodialysis Catheter Removal(Not Applicable) - Brady Magana MD
--- NOTE | 2024-05-27 08:20 | P.PN_ITS ---
Subjective 2 Subjective: Feeling better. Still with some abdominal pain. No shortness of breath. No chest pain. Patient wants her peritoneal dialysis catheter removed. Peritoneal fluid remained positive yesterday with rising white cell count. Medications: Reviewed: Yes Medication Review Details: Current Medications Acetaminophen (Acetaminophen 325 Mg Tablet) 650 mg PO Q6H PRN PRN Reason: Mild/Mod Pain Or Temp >/= 101 Last Admin: 05/26/24 23:47 Dose: 650 mg Atorvastatin Calcium (Atorvastatin 40 Mg Tablet) 40 mg PO 1700 ON LICENSE OF [facility] Last Admin: 05/26/24 16:04 Dose: 40 mg Bisacodyl (Bisacodyl 5 Mg Tablet) 10 mg PO DAILY PRN; Protocol PRN Reason: Constipation (see protocol) Duloxetine HCl (Duloxetine 60 Mg Capsule) 60 mg PO DAILY ON LICENSE OF [facility] Last Admin: 05/26/24 08:53 Dose: 60 mg Glucagon (Glucagon 1 Mg/Ml Kit 1 Ml) 1 mg IM ONCE PRN; Protocol PRN Reason: Adult Acute Hypoglycemia Nursing Prot. Heparin Sodium (Porcine) (Heparin 5,000 Unit/Ml Inj 1 Ml) 5,000 unit SUBCUT Q12H ON LICENSE OF [facility] Last Admin: 05/26/24 21:05 Dose: 5,000 unit Dextrose (D5w) 500 mls @ 0 mls/hr IV ONCE PRN; Protocol PRN Reason: Adult Acute Hypoglycemia Prot Dextrose (D10w) 125 mls @ 750 mls/hr IV PRN PRN; Protocol PRN Reason: Adult Acute Hypoglycemia Nursing Protocol Dextrose (D10w) 250 mls @ 1,000 mls/hr IV PRN PRN; Protocol PRN Reason: Adult Acute Hypoglycemia Nursing Protocol Iron Sucrose 200 mg/ Sodium (Chloride) 110 mls @ 220 mls/hr IV Q24H ON LICENSE OF [facility] Stop: 05/28/24 14:29 Last Infusion: 05/26/24 15:29 Dose: Infused Piperacillin Sod/Tazobactam (Sod 3.375 gm/ Sodium Chloride) 50 mls @ 12.5 mls/hr IV Q12H ON LICENSE OF [facility]; Protocol Last Infusion: 05/27/24 06:34 Dose: Infused Insulin Human Lispro (Insulin Lispro 100 Unit/1 Ml) 0 unit SUBCUT WM&BEDTIME ON LICENSE OF [facility]; Protocol Last Admin: 05/27/24 07:32 Dose: Not Given Isosorbide Mononitrate (Isosorbide Mononitrate Er 30 Mg Tablet) 30 mg PO DAILY ON LICENSE OF [facility] Last Admin: 05/26/24 08:54 Dose: 30 mg Lactulose (Lactulose Oral Liq 20 Gm/30 Ml Udc) 10 gm PO DAILY PRN; Protocol PRN Reason: Constipation (see protocol) Magnesium Hydroxide (Magnesium Hydroxide 30 Ml Udc) 30 ml PO DAILY PRN; Protocol PRN Reason: Constipation (see protocol) Metoprolol Succinate (Metoprolol Succinate Er (24 Hr) 25 Mg Tablet) 25 mg PO BID ON LICENSE OF [facility] Last Admin: 05/26/24 17:21 Dose: 25 mg Ondansetron HCl (Ondansetron 2 Mg/Ml Sdv 2 Ml) 4 mg IVP Q8H PRN PRN Reason: vomiting, or N/V if npo Last Admin: 05/24/24 21:14 Dose: 4 mg Pantoprazole Sodium (Pantoprazole Dr 40 Mg Tablet) 40 mg PO DAILY ON LICENSE OF [facility] Last Admin: 05/26/24 08:53 Dose: 40 mg Peritoneal Dialysis Solution (Dianeal Low Ca W/1.5% Dex 2,000 Ml Bag) 1,000 ml INTRAPERIT ONCE ON LICENSE OF [facility] Last Admin: 05/26/24 10:15 Dose: 1,000 ml Vitals/I&O/Wt Last Vital Signs Temp 97.7 F 05/27/24 08:03 Pulse 78 05/27/24 08:03 Resp 18 05/27/24 08:03 BP 159/75 05/27/24 08:03 Pulse Ox 100 05/27/24 08:03 O2 Del Method Room Air 05/27/24 08:03 05/26/24 05/27/24 05/27/24 22:59 06:59 14:59 Intake Total 950 / 2310 50 / 2360 Balance 950 / -740 50 / -690 Weight last 48 hrs Weight 94.574 kg Weight 96.343 kg Weight 96.343 kg Weight 94.4 kg Weight 94.007 kg Physical Exam 2 Narrative: No apparent respiratory distress. Vital signs noted. Afebrile. HEENT normocephalic/atraumatic. Neck is supple Right anterior chest wall permacath is clean and dry. Lungs are clear to auscultation bilaterally. Heart is regular. Abdomen is soft distended poor bowel sounds, diffuse mild tenderness by her Tenckhoff catheter. Extremities no significant edema. Neuro awake alert oriented x 3. Data 05/27/24 05:43 05/27/24 05:43 Micro: Microbiology 05/26/24 11:57 Gram Stain - Final Peritoneal Fluid 05/25/24 10:59 Gram Stain - Final Peritoneal Fluid Body Fluid Culture - Preliminary 05/23/24 23:45 Gram Stain - Final Peritoneal Fluid Body Fluid Culture - Preliminary 05/23/24 16:15 Urine Culture - Final Urine,Clean Catch A&P Assessment and plan (1) ESRD (end stage renal disease) on dialysis: 53-year-old lady diabetes hypertension CHF end-stage renal disease. Patient was being transitioned to peritoneal dialysis unfortunately PD catheter has not been working well. Patient now here with abdominal tenderness and she had a leukocytosis. 1. Infection agree with UTI broad-spectrum antibiotics. The patient is having rising white cell count on antibiotics for peritonitis. Agree with removing PD catheter and please call ID consult. Need to be concerned about a possible fungal infection or tuberculosis or other causes of a sterile peritonitis. 2. Anemia -hemoglobin improved to 8.1 Ferritin 769 iron saturation 11.9% she is likely iron deficient and has a high ferritin from infection. Continue Epogen. Monitor hemoglobin. 3. ESRD -she is status post hemodialysis on 06/24 -repeat dialysis tomorrow Low LDL 4. Blood pressure is now stable. Case discussed in detail with the patient, her nurse, and Dr Hawkins Patient was seen and examined using A/V equipment with the aid of a nurse. The patient consented to telehealth. Plan Antibiotics and remove PD catheter. Attestations 2 Medical Necessity Statement*: remove pd catheter Time Spent in Patient Care: 16 - 35 minutes (>than 50% of time sp ent in counselling and/or direct pt care on unit) . Coding Level of Care Code Acute Code for Chg Fwd Diagnoses ESRD (end stage renal disease) on dialysis N18.6; Z99.2
--- NOTE | 2024-05-27 08:51 | P.ANESASSM_ITS ---
Pre-Anesthetic Assessment Height/Weight: Height 1.64 m Weight 94.574 kg Temp Pulse Resp BP Pulse Ox O2 Del Method 97.7 F 78 18 159/75 100 Room Air 05/27/24 08:03 05/27/24 08:03 05/27/24 08:03 05/27/24 08:03 05/27/24 08:03 05/27/24 08:03 Operation Date: 05/27/24 09:10 Proposed Procedures p Dialysis Catheter Removal Hemodialysis Catheter Removal(Not Applicable) - Brady Magana MD Familial anesthetic complications: Nausea Was Beta Le taken within 24 hours: N/A Was Clonidine taken within 24 hours: N/A Last intake: Intake Last Liquid Date 05/26/24 Last Liquid Time 23:45 Last Solid Date 05/26/24 Social No alcohol and No tobacco Exam alert, oriented x 3, clear to auscultation bilaterally and regular rate & rhythm Airway Mallampati: Class I Dentition: chipped CV/HEM Congestive Heart Failure and Hypertension Chronic Renal Failure GI Gastroesophageal Reflux Disease Metabolic Diabetes Mellitus Anesthetic Plan ASA status: 4 Anesthesia: MAC Risk of > 500 ml blood loss (7ml/kg in children): No Medications/Allergies Home Medications Medication Instructions Recorded Confirmed Last Taken Type lancets 33 gauge (BD Ultra Fine #100 ea 12/05/19 05/24/24 Unknown Rx Lancets) flash glucose scanning reader #1 ea 05/29/21 05/24/24 Unknown Rx (FreeStyle Palak 2 Whiteside) pen needle, diabetic 32 gauge x #100 ea 04/04/23 05/24/24 Unknown Rx 1/4 atorvastatin 40 mg tablet See Rx Instructions .Route 06/08/23 05/23/24 Unknown Rx .COMPLEX #60 tabs diabetic shoes with 3 inserts #1 ea 08/22/23 05/24/24 Unknown Rx duloxetine 60 mg capsule,delayed 60 mg PO DAILY #90 caps 02/06/24 05/23/24 Unknown Rx release (Cymbalta) insulin regular hum U-500 conc 500 See Rx Instructions .Route 03/30/24 05/23/24 Unknown Rx unit/mL(3 mL) subcut pen (Humulin .COMPLEX #48 mL R U-500 (Conc) Insulin Kwikpen) omeprazole 20 mg capsule,delayed 20 mg PO DAILY 04/06/24 05/23/24 Unknown History release amlodipine 10 mg tablet See Rx Instructions .Route 04/09/24 05/23/24 Unknown Rx .COMPLEX #90 tabs hydralazine 100 mg tablet 100 mg PO Q8H #90 tabs 04/09/24 05/23/24 Unknown Rx isosorbide mononitrate 30 mg 30 mg PO DAILY #90 tabs 04/09/24 05/23/24 Unknown Rx tablet,extended release 24 hr lisinopril 10 mg tablet 40 mg (4 x 10 mg) PO DAILY #90 tabs 04/09/24 05/23/24 Unknown Rx metoprolol succinate 25 mg 25 mg PO BID 90 days #180 tabs 04/09/24 05/23/24 Unknown Rx tablet,extended release 24 hr flash glucose sensor (FreeStyle #6 ea 04/24/24 05/24/24 Unknown Rx Palak 2 Sensor kit) cetirizine 10 mg tablet 10 mg PO DAILY PRN Allergy Symptoms 05/23/24 05/23/24 Unknown History Allergies Allergy/AdvReac Type Severity Reaction Status Date / Time venom-honey bee Allergy Severe ALGY-Redness Verified 04/24/24 14:18 of Skin marijuana (cannabis) Allergy Intermediate ADR-Nausea Verified 04/24/24 14:18 codeine AdvReac Severe ADR-Vomitin Verified 04/24/24 14:18 g morphine AdvReac Severe ADR-Vomitin Verified 04/24/24 14:18 g propoxyphene AdvReac Severe ADR-Vomitin Verified 04/24/24 14:18 [From Veronica-N] g latex AdvReac Intermediate ALGY-Rash Verified 04/24/24 14:18 Current Medications Generic Name Dose Route Start Last Admin Trade Name Freq PRN Reason Stop Dose Admin Acetaminophen 650 mg 05/23/24 22:02 05/26/24 23:47 Acetaminophen 325 Mg Tablet PO 650 mg Q6H PRN Administration Mild/Mod Pain Or Temp >/= 101 Atorvastatin Calcium 40 mg 05/24/24 17:00 05/26/24 16:04 Atorvastatin 40 Mg Tablet PO 40 mg 1700 ALMITA Administration Duloxetine HCl 60 mg 05/24/24 09:00 05/26/24 08:53 Duloxetine 60 Mg Capsule PO 60 mg DAILY ALMITA Administration Heparin Sodium (Porcine) 5,000 unit 05/23/24 22:02 05/26/24 21:05 Heparin 5,000 Unit/Ml Inj 1 Ml SUBCUT 5,000 unit Q12H ALMITA Administration Iron Sucrose 200 mg/ Sodium 110 mls @ 220 mls/hr 05/24/24 14:00 05/26/24 15:29 Chloride IV 05/28/24 14:29 Infused Q24H ALMITA Infusion Piperacillin Sod/Tazobactam 50 mls @ 12.5 mls/hr 05/26/24 03:00 05/27/24 06:34 Sod 3.375 gm/ Sodium Chloride IV Infused Q12H ALMITA Infusion Protocol As Directed Insulin Human Lispro 0 unit 05/23/24 22:02 05/27/24 07:32 Insulin Lispro 100 Unit/1 Ml SUBCUT Not Given WM&BEDTIME [facility] Protocol Isosorbide Mononitrate 30 mg 05/24/24 09:00 05/26/24 08:54 Isosorbide Mononitrate Er 30 Mg Tablet PO 30 mg DAILY ALMITA Administration Metoprolol Succinate 25 mg 05/24/24 09:00 05/26/24 17:21 Metoprolol Succinate Er (24 Hr) 25 Mg Tablet PO 25 mg BID ALMITA Administration Ondansetron HCl 4 mg 05/23/24 22:02 05/24/24 21:14 Ondansetron 2 Mg/Ml Sdv 2 Ml IVP 4 mg Q8H PRN Administration vomiting, or N/V if npo Pantoprazole Sodium 40 mg 05/24/24 09:00 05/26/24 08:[address] 40 Mg Tablet PO 40 mg DAILY ALMITA Administration Peritoneal Dialysis Solution 1,000 ml 05/26/24 09:30 05/26/24 10:15 Dianeal Low Ca W/1.5% Dex 2,000 Ml Bag INTRAPERIT 1,000 ml ONCE ALMITA Administration Additional Medication Information Current Medications Acetaminophen (Acetaminophen 325 Mg Tablet) 650 mg PO Q6H PRN PRN Reason: Mild/Mod Pain Or Temp >/= 101 Last Admin: 05/26/24 23:47 Dose: 650 mg Atorvastatin Calcium (Atorvastatin 40 Mg Tablet) 40 mg PO 1700 ALMITA Last Admin: 05/26/24 16:04 Dose: 40 mg Bisacodyl (Bisacodyl 5 Mg Tablet) 10 mg PO DAILY PRN; Protocol PRN Reason: Constipation (see protocol) Duloxetine HCl (Duloxetine 60 Mg Capsule) 60 mg PO DAILY [facility] Last Admin: 05/26/24 08:53 Dose: 60 mg Glucagon (Glucagon 1 Mg/Ml Kit 1 Ml) 1 mg IM ONCE PRN; Protocol PRN Reason: Adult Acute Hypoglycemia Nursing Prot. Heparin Sodium (Porcine) (Heparin 5,000 Unit/Ml Inj 1 Ml) 5,000 unit SUBCUT Q12H [facility] Last Admin: 05/26/24 21:05 Dose: 5,000 unit Dextrose (D5w) 500 mls @ 0 mls/hr IV ONCE PRN; Protocol PRN Reason: Adult Acute Hypoglycemia Prot Dextrose (D10w) 125 mls @ 750 mls/hr IV PRN PRN; Protocol PRN Reason: Adult Acute Hypoglycemia Nursing Protocol Dextrose (D10w) 250 mls @ 1,000 mls/hr IV PRN PRN; Protocol PRN Reason: Adult Acute Hypoglycemia Nursing Protocol Iron Sucrose 200 mg/ Sodium (Chloride) 110 mls @ 220 mls/hr IV Q24H [facility] Stop: 05/28/24 14:29 Last Infusion: 05/26/24 15:29 Dose: Infused Piperacillin Sod/Tazobactam (Sod 3.375 gm/ Sodium Chloride) 50 mls @ 12.5 mls/hr IV Q12H [facility]; Protocol Last Infusion: 05/27/24 06:34 Dose: Infused Insulin Human Lispro (Insulin Lispro 100 Unit/1 Ml) 0 unit SUBCUT WM&BEDTIME [facility]; Protocol Last Admin: 05/27/24 07:32 Dose: Not Given Isosorbide Mononitrate (Isosorbide Mononitrate Er 30 Mg Tablet) 30 mg PO DAILY [facility] Last Admin: 05/26/24 08:54 Dose: 30 mg Lactulose (Lactulose Oral Liq 20 Gm/30 Ml Udc) 10 gm PO DAILY PRN; Protocol PRN Reason: Constipation (see protocol) Magnesium Hydroxide (Magnesium Hydroxide 30 Ml Udc) 30 ml PO DAILY PRN; Protocol PRN Reason: Constipation (see protocol) Metoprolol Succinate (Metoprolol Succinate Er (24 Hr) 25 Mg Tablet) 25 mg PO BID [facility] Last Admin: 05/26/24 17:21 Dose: 25 mg Ondansetron HCl (Ondansetron 2 Mg/Ml Sdv 2 Ml) 4 mg IVP Q8H PRN PRN Reason: vomiting, or N/V if npo Last Admin: 05/24/24 21:14 Dose: 4 mg Pantoprazole Sodium (Pantoprazole Dr 40 Mg Tablet) 40 mg PO DAILY [facility]MITA Last Admin: 05/26/24 08:53 Dose: 40 mg Peritoneal Dialysis Solution (Dianeal Low Ca W/1.5% Dex 2,000 Ml Bag) 1,000 ml INTRAPERIT ONCE ALMITA Last Admin: 05/26/24 10:15 Dose: 1,000 ml PFSH Anesthesia Medical History (Updated 05/24/24 @ 14:15 by Lawson Diaz MD) Peritoneal dialysis catheter in place Uncontrolled type 2 diabetes mellitus Pleural effusion Anemia of chronic disease ESRD (end stage renal disease) PAD (peripheral artery disease) Diabetic neuropathy, type II diabetes mellitus Diabetic retinopathy Bereavement Major depressive disorder, recurrent, in partial remission Psychiatric care FH: total knee replacement left Essential hypertension HLA B27 (HLA B27 positive) High risk medication use Inflammatory arthritis Seronegative spondyloarthropathy Chronic insomnia See subjective note below. Chronic pain See subjective note below. Chronic post-traumatic stress disorder (PTSD) Generalized anxiety disorder Major depressive disorder, recurrent, moderate Surgical History History of cataract extraction History of hysterectomy for benign disease History of tonsillectomy History of appendectomy History of left knee replacement Family History Mother Hypertension Diabetes Psychiatric illness Thyroid disease Father , in his 50's Family history of premature coronary artery disease Hyperlipidemia Myocardial infarction Brother Hypertension Sister No problems noted. Denies family history of Rheumatoid arthritis Lupus Social History Smoking and tobacco/nicotine status: never used tobacco/nicotine Second hand smoke exposure: No Alcohol intake: never Substance/Drug Use: never Adopted: No Caregiver/support person: No Lives independently: No Household members: family service: No Current occupational status: unemployed and disabled Sexually active: Yes Do you think of yourself as: Straight/Heterosexual Current gender identity: Female Data Anesthesia 05/27/24 05:43 05/27/24 05:43 Short CBC 05/26/24 05/27/24 Range/Units 05:03 05:43 WBC 9.30 11.82 H (3.29-11.43) 10^3/uL Hgb 8.10 L 8.90 L (11.27-16.99) g/dL Hct 25.8 L 27.7 L (36-47) % MCV 84.6 L 82.2 L (85-98) fl Plt Count 505 H 574 H (157-399) 10^3/cmm Neut % (Auto) 67.9 72.9 % Neut # (Auto) 6.32 8.62 H (1.8-7.7) 10^3/uL BMP 05/26/24 05/27/24 05:03 05:43 Sodium 137 138 Potassium 4.3 4.4 Chloride 100 99 Carbon Dioxide 24 26 BUN 14 19 Creatinine 3.2 H 4.1 H Glucose 97 108 Calcium 7.8 L 8.1 L Liver Function 05/26/24 05/27/24 Range/Units 05:03 05:43 Total Bilirubin 0.3 0.2 (0.15-1.2) mg/dL AST 11 10 (0-32) U/L ALT < 5 < 5 (0-33) U/L Alkaline Phosphatase 62 66 (35-105) U/L Albumin 2.2 L 2.4 L (3.5-5.2) g/dL Microbiology 05/26/24 11:57 Gram Stain - Final Peritoneal Fluid 05/25/24 10:59 Gram Stain - Final Peritoneal Fluid Body Fluid Culture - Preliminary 05/23/24 23:45 Gram Stain - Final Peritoneal Fluid Body Fluid Culture - Preliminary 05/23/24 16:15 Urine Culture - Final Urine,Clean Catch Cardiac Studies: 2 No Data to Display
[2024-05-27] MEDS: lidocaine-epi 1% 20 mL INJ INJECTION (09:28)
[2024-05-27] MEDS: BUPivacaine 0.25% INJ 10 mL INJECTION (09:28)
--- NOTE | 2024-05-27 09:47 | PM.OP ---
Operative Report Date of procedure: May 27, 2024 Pre-op diagnosis: Peritonitis due to dialysis catheter Post-op diagnosis: Same Post-op findings: Dialysis catheter noted, superficial cuff in the subcutaneous tissue, deep cuff at the level of the posterior rectus sheath Procedure done: Excision of peritoneal dialysis catheter Implants: None Surgeon: Brady Magana MD [employer] Consultant: MAN OR Staff Estimated blood loss: 5 Complications: none Brief History: 53-year-old female who is receiving dialysis presented with sepsis likely source was a peritoneal dialysis catheter, I was consulted for excision. After discussion risk benefits with side to proceed. Procedure: Patient was placed in a supine position, moderate anesthesia sedation was given. The abdomen was prepped and draped in the usual sterile fashion. Timeout was conducted. The peritoneal dialysis catheter was clamped just distal to the skin entry site and transected. I then proceeded to make 1.5 cm incision over the previous surgical incision to the left of the bellybutton. Incision was deepened to subcutaneous tissue with electrocautery, the catheter was identified at this level use electrocautery to release the superficial cuff from the surrounding tissue and then I clamped the catheter at this level, the rest of the catheter was interiorized to the wound. Careful consideration was taken to keep the catheter clamped to prevent migration of air or fluid into the peritoneal cavity. I then carefully opened the anterior rectus sheath with electrocautery following the path of the catheter and use a hemostat to single confidentially dissect the deep cuff that was located in the posterior rectus sheath. Once the deep cuff was liberated I was able to pull the catheter without difficulty. The tip of the catheter was sent for culture. Hemostasis was achieved. The wound was irrigated with saline. I then proceeded to close anterior rectus sheath with #0 Vicryl in a UR 6 needle. The wound was then closed in layers using #3-0 Vicryl for the subcutaneous tissue and #3-0 nylon for the skin. Steri-Strips were applied and a sterile dressing was placed on top. At the end of the procedure all counts were correct, the patient tolerated well the procedure and was transferred to the PACU in stable condition.
--- NOTE | 2024-05-27 10:10 | ANE.PACU2 ---
Inpatient post-anesthesia follow up: Airway intact: Yes Vital signs: Temperature 97.7 F Pulse Rate 77 Respiratory Rate 15 Blood Pressure 146/83 Pulse Oximetry 97 Oxygen Delivery Me thod Room Air Oxygen Flow Rate Fraction of Inspir ed Oxygen Hydration adequate: Yes Nausea and vomiting: No Pain level: 1 Mental status: Baseline
[2024-05-27] MEDS: metoprolol succinate ER (24 HR) 25 mg Tablet PO ×2 (10:39→17:37)
[2024-05-27] MEDS: duloxetine 60 mg Capsule PO (10:39)
[2024-05-27] MEDS: pantoprazole DR 40 mg Tablet PO (10:39)
[2024-05-27] MEDS: isosorbide mononitrate ER 30 mg Tablet PO (10:39)
[2024-05-27] MEDS: heparin 5,000 unit/mL INJ 1 mL 5000 UNIT SUBCUT ×2 (10:40→21:28)
[2024-05-27] MEDS: meropenem 1,000 mg SDV 1000 MG IVP (10:46)
[2024-05-27 11:01] LABS: Glucose Point of Care 101 mg/dL (70-110)
[2024-05-27 12:13] LABS: Vancomycin Random 22.2 ug/mL (20.0-40.0)
--- NOTE | 2024-05-27 14:15 | P.PN_ITS ---
Subjective 2 Subjective: No acute events overnight. Patient denies any nausea, vomiting, headache. States she is feeling slightly better after removal of PD catheter. Abdomen as per the patient is less tender. Blood pressure is better today. Vitals/I&O/Wt Last Vital Signs Temp 97.7 F 05/27/24 11:41 Pulse 80 05/27/24 11:41 Resp 16 05/27/24 11:41 BP 169/83 05/27/24 11:41 Pulse Ox 96 05/27/24 14:01 O2 Del Method Room Air 05/27/24 14:01 05/26/24 05/27/24 05/27/24 22:59 06:59 14:59 Intake Total 950 / 2310 50 / 2360 30 / 30 Output Total 5 / 5 Balance 950 / -740 50 / -690 25 / Weight last 48 hrs Weight 94.546 kg Weight 94.574 kg Weight 96.343 kg Weight 96.343 kg Weight 94.4 kg Physical Exam 2 Narrative: General: No acute distress, AO x3 HEENT: PERRLA, pupils bilaterally equal and reactive Chest: Normal vesicular breath sounds, no added sounds, equal good air entry bilaterally CVS: S1-S2 regular, no murmurs, no tachycardia, no gallops, no rubs Abdomen: Soft, less generalized tenderness, guarding present, no organomegaly, bowel sounds present, PD catheter removed. Neuro: No focal deficits, no facial deformity, AO x3, power 5/5 in all limbs Quick SOFA Score: Respiratory Rate: 16 Blood Pressure: 169/83 [place] Coma Scale: 15 qSOFA Score: 0 If qSOFA score 2 or greater, continue: PaO2/FiO2 Ratio (mmHg): 400 Blood Pressure Mean: 111 Bilirubin (mg/dl): 0.2 Platelets (x10?/ml): 574 C reatinine (mg/dl): 4.1 SOFA Score: 4 Evaluation: Current stage of sepsis: sepsis Sepsis stage criteria used: CMS Sep-1 and Sepsis-3 Crystalloid fluids: no fluids ordered Reasons: renal failure Blood cultures ordered: Yes Possible source: GI tract/intra- abdominal Focused Exam: Vital signs: Temp Pulse Resp BP Pulse Ox O2 Del Method 05/27/24 14:01 96 Room Air 05/27/24 11:41 97.7 F 80 16 169/83 96 05/27/24 10:10 98.5 F 77 20 H 165/94 95 Room Air 05/27/24 10:05 77 18 166/79 97 Room Air 05/27/24 10:00 83 20 H 161/86 96 Room Air 05/27/24 09:55 98.4 F 86 12 156/87 98 Room Air 05/27/24 08:03 97.7 F 78 18 159/75 100 Room Air 05/27/24 07:34 97.7 F 81 16 163/84 97 05/27/24 05:24 76 05/27/24 04:00 98.2 F 75 16 146/84 97 Room Air Date exam was performed: 05/27/24 Time exam was performed: 14:27 2 Sepsis Screen No Definite Risk 05/23/24 21:30 Respiratory Rate 16 breaths/min (12 - 18) 05/27/24 11:41 Blood Pressure 169/83 mmHg 05/27/24 11:41 [place] Coma Scale Score 15 05/23/24 22:04 Quick SOFA Score 0 05/23/24 23:01 SOFA Score: 2 [place] Coma Scale Score 15 05/23/24 22:04 Blood Pressure Mean 111 mmHg 05/27/24 11:41 Total Bilirubin 0.2 mg/dL (0.15-1.2) 05/27/24 05:43 Platelet Count 574 10^3/cmm (157-399) H 05/27/24 05:43 Creatinine 4.1 mg/dL (0.5-0.9) H 05/27/24 05:43 SOFA Score 3 05/23/24 19:30 Data 05/27/24 05:43 05/27/24 05:43 Micro: Microbiology 05/26/24 11:57 Gram Stain - Final Peritoneal Fluid Body Fluid Culture - Preliminary 05/23/24 23:45 Gram Stain - Final Peritoneal Fluid Body Fluid Culture - Final 05/25/24 10:59 Gram Stain - Final Peritoneal Fluid Body Fluid Culture - Preliminary 05/23/24 16:15 Urine Culture - Final Urine,Clean Catch A&P Assessment and plan (1) Sepsis: Most likely in setting of cystitis along with PD peritonitis given abdominal tenderness, unable to drain peritoneal fluid for last 2 weeks. Follow-up blood culture, urine culture, MRSA swab, peritoneal fluid culture from 05/23 and 05/25. Keep mean artery pressure 65. Awaiting stool studies. (2) Acute cystitis: Appreciate urinalysis, CT abdomen pelvis. Appreciate past culture history with history of UTI with E. coli in 03/22/2024. Also has history of strep UTI. Follow-up blood culture, urine culture. Given significant cell count on PD fluid switching from IV ceftriaxone to IV Zosyn. (3) Peritonitis due to infected peritoneal dialysis catheter: PD fluid cell count today more than 4000. Switch antibiotic to IV Zosyn. Continue with vancomycin. MRSA swab collected. Results pending. Will discontinue vancomycin if MRSA swab negative. Plan to continue vancomycin postdialysis. Will discuss further with patient regarding possible removal of PD catheter depending on the fluid culture results. (4) Anemia: Concerns for iron deficiency anemia. Received EPO as per nephrology. Appreciate vitamin B12 and folate levels. Post monitor blood transfusion. Target hemoglobin more than 7. Continue with IV iron supplementation. Qualifiers: Anemia type: due to chronic kidney disease Chronic kidney disease stage: on chronic dialysis Qualified Code(s): N18.6 - End stage renal disease; D63.1 - Anemia in chronic kidney disease; Z99.2 - Dependence on renal dialysis (5) ESRD (end stage renal disease) on dialysis: On hemodialysis. With a trial of possible transition to peritoneal dialysis as an outpatient but being unsuccessful so far Appreciate nephrology recommendations. Monitor BMP daily. (6) Hypokalemia: Resolved. Potassium stable. Recheck daily. (7) CHF (congestive heart failure): Currently euvolemic. No echocardiogram on chart. Will check echocardiogram. Qualifiers: Heart failure chronicity: unspecified Heart failure type: unspecified Qualified Code(s): I50.9 - Heart failure, unspecified (8) Uncontrolled type 2 diabetes mellitus: Last A1c of 11.3. Repeat A1c 8.4. Getting better controlled. For now we will start on high-dose dose protocol Humalog. Will add Lantus depending on insulin requirement in the next 24 hours. Qualifiers: Glycemic state: with hyperglycemia Qualified Code(s): E11.65 - Type 2 diabetes mellitus with hyperglycemia (9) Chronic post-traumatic stress disorder (PTSD): Continue with home dose of duloxetine. (10) Peritoneal dialysis catheter in place: Plan Hypertension: Goal blood pressure less than 140/90 mg. Blood pressure reportedly remains low recently. For now continue with home dose of amlodipine, Imdur, metoprolol. Hold off on home dose of lisinopril and hydralazine. Will uptitrate for goal blood pressure. Plan for the day: Follow-up blood cultures. So far negative. Appreciate PT fluid analysis. PD catheter removed today. Appreciate surgical recommendations. PD catheter tip sent for culture. As patient continues to have worsening PD fluid, cultures continue to remain negative for now we will continue with broad-spectrum IV antibiotics with vancomycin and meropenem. Check vancomycin random level and start vancomycin accordingly. Adjust dose of meropenem as per hemodialysis. Nephrology requesting ID consultation. Will consult ID for further recommendation. Blood pressure is better today. Add lisinopril 20 mg oral daily. Renal diabetic dialysis diet Heparin 5000 every 12 daily for DVT prophylaxis Protonix OPD prophylaxis Full code Attestations 2 Medical Necessity Statement*: Requires further hospitalization for management of sepsis in setting of PD peritonitis, UTI while cultures remain negative, PD catheter removal in a patient with history of end-stage renal disease on hemodialysis Diagnoses Sepsis A41.9 Acute cystitis N30.00 Peritonitis due to infected peritoneal dialysis catheter T85.71XA; K65.9 Anemia due to chronic kidney disease, on chronic dialysis N18.6; D63.1; Z99.2 Anemia type: due to chronic kidney disease Chronic kidney disease stage: on chronic dialysis ESRD (end stage renal disease) on dialysis N18.6; Z99.2 Hypokalemia E87.6 Congestive heart failure, unspecified HF chronicity, unspecified heart failure type I50.9 Heart failure chronicity: unspecified Heart failure type: unspecified Uncontrolled type 2 diabetes mellitus with hyperglycemia E11.65 Glycemic state: with hyperglycemia Chronic post-traumatic stress disorder (PTSD) F43.12 Peritoneal dialysis catheter in place Z99.2
[2024-05-27] MEDS: lisinopril 20 mg Tablet PO (15:06)
[2024-05-27] MEDS: iron sucrose 200 MG in sodium chloride 0.9% (100 ml) 100 ML 220 MG IV (15:12)
--- NOTE | 2024-05-27 15:43 | P.CONIM_ITS ---
Providers/Reason For Consult 2 Consulting Physician/Specialty*: Liudmila Shaw MD / Infectious disease Reason for Consult*: PD peritonitis Requesting Physician: Lawson Diaz MD Attending Physician: Lawson Diaz MD Primary Care Provider: SEGUN Mulligan History of Present Illness History of Present Illness Lizy Evans is a 53 year old female with past medical history of CKD on hemodialysis MWF, hypertension, type 2 diabetes mellitus currently admitted to the hospital on May 23, 2024 due to complaints of generalized weakness and fever of 100.8 Fahrenheit. Patient has recently been transitioned to peritoneal dialysis. She states that catheter was placed about 2 months ago. However attempts to dialyze via the PT have not been successful to date. Therefore she continues to be on hemodialysis. She was sent over from the dialysis center after being noted to have fever. She was also complaining of urinary hesitancy and dysuria, she has had history of obstructive pyelonephritis 1 year ago which eventually did not require any urological intervention. She improved on antibiotics. Infectious evaluation during the course of admission has revealed a positive UA with greater than 100 WBC, 1+ bacteria, 1+ urine yeast, positive leukocyte Estrace. Urine culture has shown superficial aline. Additionally had evaluation for PD peritonitis, cell count from peritoneal fluid was at 250, serially checked and found to be at 4600 and then 5100, PMNs 44% and 58% respectively. From 05/24, pathology shows ascitic fluid negative for malignancy. From 05 25, numerous neutrophils and RBCs with several lymphocytes. Few macrophages and rare mesothelial lining cells are also noted. Patient has remained afebrile and hemodynamically stable during the course of her admission here. She has had removal of her PD catheter today. Review of Systems 2 General: Reports: 10 or more systems reviewed and unremarkable except in HPI and below Const: Denies: fever(s), chills or body aches Eyes: Denies: change in vision, blurry vision or photophobia ENMT: Reports: hoarseness; Denies: throat pain, enlarged tonsils, odynophagia or nasal congestion Card: Denies: chest pain, palpitations, irregular heart rhythm, edema, swelling of feet/ankles, lightheadedness, pre-syncope, dyspnea on exertion or orthopnea Resp: Denies: dyspnea, productive cough, non-productive cough, wheezing, stridor, pain on inspiration, change in phlegm color, hemoptysis or chest congestion GI: Denies: abdominal pain, nausea, vomiting, hematemesis, coffee ground emesis, dysphagia, heartburn, diarrhea, constipation, GI cramping, change in stool character, hematochezia or melena : Denies: flank pain, difficulty voiding, dysuria, urinary frequency, urinary urgency, urinary hesitancy or hematuria Musc: Denies: neck pain, back pain, extremity pain, joint swelling, joint warmth or deformity Neuro: Denies: headache(s), numbness in extremities, weakness in extremities, sensory changes, difficulty walking, frequent falls, dizziness, vertigo, behavioral changes, Slurred speech present or seizure-like activity Psych: Denies: anxiety, depression, suicidal ideation or homicidal ideation Endo: Denies: polyuria, polydipsia, tired all the time, cold intolerance or hot flashes Carlos/Lymph: Denies: easy bruising or easy bleeding Medications/Allergies Home Medications Medication Instructions Recorded Confirmed Last Taken Type lancets 33 gauge (BD Ultra Fine #100 ea 12/05/19 05/24/24 Unknown Rx Lancets) flash glucose scanning reader #1 ea 05/29/21 05/24/24 Unknown Rx (FreeStyle Palak 2 [place]) pen needle, diabetic 32 gauge x #100 ea 04/04/23 05/24/24 Unknown Rx 1/4 atorvastatin 40 mg tablet See Rx Instructions .Route 06/08/23 05/23/24 Unknown Rx .COMPLEX #60 tabs diabetic shoes with 3 inserts #1 ea 08/22/23 05/24/24 Unknown Rx duloxetine 60 mg capsule,delayed 60 mg PO DAILY #90 caps 02/06/24 05/23/24 Unknown Rx release (Cymbalta) insulin regular hum U-500 conc 500 See Rx Instructions .Route 03/30/24 05/23/24 Unknown Rx unit/mL(3 mL) subcut pen (Humulin .COMPLEX #48 mL R U-500 (Conc) Insulin Kwikpen) omeprazole 20 mg capsule,delayed 20 mg PO DAILY 04/06/24 05/23/24 Unknown History release amlodipine 10 mg tablet See Rx Instructions .Route 04/09/24 05/23/24 Unknown Rx .COMPLEX #90 tabs hydralazine 100 mg tablet 100 mg PO Q8H #90 tabs 04/09/24 05/23/24 Unknown Rx isosorbide mononitrate 30 mg 30 mg PO DAILY #90 tabs 04/09/24 05/23/24 Unknown Rx tablet,extended release 24 hr lisinopril 10 mg tablet 40 mg (4 x 10 mg) PO DAILY #90 tabs 04/09/24 05/23/24 Unknown Rx metoprolol succinate 25 mg 25 mg PO BID 90 days #180 tabs 04/09/24 05/23/24 Unknown Rx tablet,extended release 24 hr flash glucose sensor (FreeStyle #6 ea 04/24/24 05/24/24 Unknown Rx Palak 2 Sensor kit) cetirizine 10 mg tablet 10 mg PO DAILY PRN Allergy Symptoms 05/23/24 05/23/24 Unknown History Allergies Allergy/AdvReac Type Severity Reaction Status Date / Time venom-honey bee Allergy Severe ALGY-Redness Verified 04/24/24 14:18 of Skin marijuana (cannabis) Allergy Intermediate ADR-Nausea Verified 04/24/24 14:18 codeine AdvReac Severe ADR-Vomitin Verified 04/24/24 14:18 g morphine AdvReac Severe ADR-Vomitin Verified 04/24/24 14:18 g propoxyphene AdvReac Severe ADR-Vomitin Verified 04/24/24 14:18 [From Rosette] g latex AdvReac Intermediate ALGY-Rash Verified 04/24/24 14:18 Current Medications Generic Name Dose Route Start Last Admin Trade Name Freq PRN Reason Stop Dose Admin Acetaminophen 650 mg 05/23/24 22:02 05/26/24 23:47 Acetaminophen 325 Mg Tablet PO 650 mg Q6H PRN Administration Mild/Mod Pain Or Temp >/= 101 Atorvastatin Calcium 40 mg 05/24/24 17:00 05/26/24 16:04 Atorvastatin 40 Mg Tablet PO 40 mg 1700 ALMITA Administration Duloxetine HCl 60 mg 05/24/24 09:00 05/27/24 10:39 Duloxetine 60 Mg Capsule PO 60 mg DAILY ALMITA Administration Heparin Sodium (Porcine) 5,000 unit 05/23/24 22:02 05/27/24 10:40 Heparin 5,000 Unit/Ml Inj 1 Ml SUBCUT 5,000 unit Q12H ALMITA Administration Iron Sucrose 200 mg/ Sodium 110 mls @ 220 mls/hr 05/24/24 14:00 05/27/24 15:12 Chloride IV 05/28/24 14:29 220 mls/hr Q24H ALMITA Administration Insulin Human Lispro 0 unit 05/23/24 22:02 05/27/24 11:27 Insulin Lispro 100 Unit/1 Ml SUBCUT Not Given WM&BEDTIME ALMITA Protocol Isosorbide Mononitrate 30 mg 05/24/24 09:00 05/27/24 10:39 Isosorbide Mononitrate Er 30 Mg Tablet PO 30 mg DAILY ALMITA Administration Lisinopril 20 mg 05/27/24 14:20 05/27/24 15:06 Lisinopril 20 Mg Tablet PO 20 mg DAILY ALMITA Administration Metoprolol Succinate 25 mg 05/24/24 09:00 05/27/24 10:39 Metoprolol Succinate Er (24 Hr) 25 Mg Tablet PO 25 mg BID ALMITA Administration Ondansetron HCl 4 mg 05/23/24 22:02 05/24/24 21:14 Ondansetron 2 Mg/Ml Sdv 2 Ml IVP 4 mg Q8H PRN Administration vomiting, or N/V if npo Pantoprazole Sodium 40 mg 05/24/24 09:00 05/27/24 10:[address] 40 Mg Tablet PO 40 mg DAILY ALMITA Administration Peritoneal Dialysis Solution 1,000 ml 05/26/24 09:30 05/26/24 10:15 Dianeal Low Ca W/1.5% Dex 2,000 Ml Bag INTRAPERIT 1,000 ml ONCE ALMITA Administration PFSH Acute 2 PFSH: Medical History Peritoneal dialysis catheter in place Uncontrolled type 2 diabetes mellitus Pleural effusion Anemia of chronic disease ESRD (end stage renal disease) PAD (peripheral artery disease) Diabetic neuropathy, type II diabetes mellitus Diabetic retinopathy Bereavement Major depressive disorder, recurrent, in partial remission Psychiatric care FH: total knee replacement left Essential hypertension HLA B27 (HLA B27 positive) High risk medication use Inflammatory arthritis Seronegative spondyloarthropathy Chronic insomnia See subjective note below. Chronic pain See subjective note below. Chronic post-traumatic stress disorder (PTSD) Generalized anxiety disorder Major depressive disorder, recurrent, moderate Surgical History History of cataract extraction History of hysterectomy for benign disease History of tonsillectomy History of appendectomy History of left knee replacement Family History Mother Hypertension Diabetes Psychiatric illness Thyroid disease Father , in his 50's Family history of premature coronary artery disease Hyperlipidemia Myocardial infarction Brother Hypertension Sister No problems noted. Denies family history of Rheumatoid arthritis Lupus Social History Smoking and tobacco/nicotine status: never used tobacco/nicotine Second hand smoke exposure: No Alcohol intake: never Substance/Drug Use: never Adopted: No Caregiver/support person: No Lives independently: No Household members: family service: No Current occupational status: unemployed and disabled Sexually active: Yes Do you think of yourself as: Straight/Heterosexual Current gender identity: Female Vitals/I&O/Wt Last Vital Signs Temp 97.7 F 05/27/24 11:41 Pulse 80 05/27/24 11:41 Resp 16 05/27/24 11:41 BP 169/83 05/27/24 11:41 Pulse Ox 96 05/27/24 14:01 O2 Del Method Room Air 05/27/24 14:01 05/27/24 05/27/24 05/27/24 06:59 14:59 22:59 Intake Total 50 / 2360 30 / 30 Output Total 5 / 5 Balance 50 / -690 25 / 25 Weight last 48 hrs Weight 94.546 kg Weight 94.574 kg Weight 96.343 kg Weight 96.343 kg Weight 94.4 kg Physical Exam 2 Narrative: General: No acute distress, AO x3 HEENT: PERRLA, pupils bilaterally equal and reactive, pallors not present Chest: Normal vesicular breath sounds, no added sounds, equal good air entry bilaterally CVS: S1-S2 regular, no murmurs, no tachycardia, no gallops, no rubs Abdomen: Soft, nontender, no organomegaly, bowel sounds present, PD catheter interval removal. Site of removal examined, no pus or discharge or surrounding cellulitis noted at this time. Neuro: No focal deficits, no facial deformity, AO x3, power 5/5 in all limbs Data 05/29/24 04:46 05/29/24 04:46 Micro: Microbiology 05/26/24 11:57 Gram Stain - Final Peritoneal Fluid Body Fluid Culture - Preliminary 05/23/24 23:45 Gram Stain - Final Peritoneal Fluid Body Fluid Culture - Final 05/25/24 10:59 Gram Stain - Final Peritoneal Fluid Body Fluid Culture - Preliminary 05/23/24 16:15 Urine Culture - Final Urine,Clean Catch A&P Assessment and plan (1) Peritonitis due to infected peritoneal dialysis catheter: PD peritonitis , cell count consistently > 50 cx negative from 05/23 agree with catheter removal today. And broaden antibiotic spectrum from zosyn to meropenem add renally dosed vancomycin will follow for interval improvement after removal of catheter. Low suspicion for atypical process such as fungal or mycobacterial peritonitis given relatively recent placement, lack of underlying profoundly immunocompromising conditions. Consult Attestations 2 Medical Necessity Statement: Per admitting Coding Level of Care Code Acute Code for Chg Fwd Moderate MDM includes number and complexity of problems actively addressed during encounter, amount and/or complexity of data reviewed/ordered and described risk of complication, morbidity or mortality of management as documented Diagnoses Peritonitis due to infected peritoneal dialysis catheter T85.71XA; K65.9
[2024-05-27 16:56] LABS: Glucose Point of Care 85 mg/dL (70-110)
[2024-05-27] MEDS: atorvastatin 40 mg Tablet PO (17:37)
[2024-05-27 20:13] LABS: Glucose Point of Care 82 mg/dL (70-110)
[2024-05-27] MEDS: acetaminophen 325 mg Tablet 650 MG PO (20:37)
[2024-05-28] VITALS (11 sets, daily range): BP systolic 130–181; BP diastolic 76–94; PULSE 75–116; RESP 15–20; TEMP 36.5–37; O2SAT 97–99
[2024-05-28 04:23] LABS: Basophils # 0.1 10^3/uL (0.0-0.1); Basophils % 0.9 %; Eosinophils # 0.2 10^3/uL (0.0-0.8); Eosinophils % 1.6 %; Hematocrit 29.2 % (36-47); Lymphocytes # 1.8 10^3/uL (0.8-4.8); Mean Corpuscular HGB Conc 31.2 g/dL (30-55); Mean Corpuscular Hemoglobin 26.8 pg (27-33); Mean Corpuscular Volume 85.9 fl (85-98); Mean Platelet Volume 9.7 fL (7.4-10.4); Monocytes # 0.6 10^3/uL (0.2-0.9); Monocytes % 5.8 %; Neutrophils # 6.96 10^3/uL (1.8-7.7); Neutrophils % 68.2 %; Nucleated Red Blood Cells % 0 %; Platelet Count 580 10^3/cmm (157-399); Red Cell Distribution Width 15.1 % (12.1-15.1); White Blood Count 10.19 10^3/uL (3.29-11.43)
[2024-05-28 04:46] LABS: Alanine Aminotransferase < 5 U/L (0-33); Albumin Level 2.2 g/dL (3.5-5.2); Alkaline Phosphatase 79 U/L (35-105); Anion Gap 17.4 (5-19); Aspartate Amino Transferase 13 U/L (0-32); Blood Urea Nitrogen 26 mg/dL (6-20); Calcium 7.9 mg/dL (8.5-10.5); Carbon Dioxide 24 mmol/L (22-29); Chloride 99 mmol/L (98-107); Creatinine Clr Calc Pharmacy 14.1696; Globulin 3.6 g/dL (1.3-4.6); Glomerular Filtration Rate 8.8 mL/min (90-130); Glucose 99 mg/dL (65-115); Osmolality Calculated 287 mOsm/kg (285-295); Potassium 4.4 mmol/L (3.5-5.1); Sodium 136 mmol/L (136-145); Total Bilirubin 0.2 mg/dL (0.15-1.2); Total Protein 5.8 g/dL (6.6-8.7)
[2024-05-28 06:23] LABS: Glucose Point of Care 84 mg/dL (70-110)
--- NOTE | 2024-05-28 07:08 | P.PN_ITS ---
Subjective 2 Subjective: Postoperative day 1 status post excision of peritoneal dialysis catheter. Currently doing well. No abdominal pain. Vitals/I&O/Wt Last Vital Signs Temp 97.7 F 05/28/24 04:00 Pulse 77 05/28/24 05:58 Resp 15 05/28/24 04:00 BP 146/83 05/28/24 04:00 Pulse Ox 97 05/28/24 04:00 O2 Del Method Room Air 05/28/24 04:00 05/27/24 05/28/24 05/28/24 22:59 06:59 14:59 Intake Total 110 / 140 Balance 110 / 135 Weight last 48 hrs Weight 206 lb 14.4 oz Weight 208 lb 7 oz Weight 208 lb 8 oz Weight 212 lb 6.4 oz Physical Exam 2 GI: OTHER: Abdomen is soft nontender, nondistended, surgical incisions covered with dressing Data 05/28/24 03:27 05/28/24 03:27 Micro: Microbiology 05/26/24 11:57 Gram Stain - Final Peritoneal Fluid Body Fluid Culture - Preliminary 05/23/24 23:45 Gram Stain - Final Peritoneal Fluid Body Fluid Culture - Final 05/25/24 10:59 Gram Stain - Final Peritoneal Fluid Body Fluid Culture - Preliminary A&P Assessment and plan (1) Peritonitis due to infected peritoneal dialysis catheter: Plan Excellent progression after excision of peritoneal dialysis catheter. Culture of the tip of the catheter is pending. There is no indication for any additional surgical intervention at this point. Patient can be resumed to regular diet as tolerated, I discussed regarding activity limitations and she will follow-up in my clinic in 1 week to remove sutures. Attestations 2 Medical Necessity Statement*: Per medical team Coding Level of Care Code Acute Code for [facility] Fwd Diagnoses Peritonitis due to infected peritoneal dialysis catheter T85.71XA; K65.9
[2024-05-28] MEDS: isosorbide mononitrate ER 30 mg Tablet PO (08:57)
[2024-05-28] MEDS: duloxetine 60 mg Capsule PO (08:57)
[2024-05-28] MEDS: pantoprazole DR 40 mg Tablet PO (08:57)
[2024-05-28] MEDS: metoprolol succinate ER (24 HR) 25 mg Tablet PO ×2 (08:58→17:41)
[2024-05-28] MEDS: lisinopril 20 mg Tablet PO (08:58)
--- NOTE | 2024-05-28 10:54 | P.PN_ITS ---
Subjective 2 Subjective: no new c/o Medications: Reviewed: Yes Vitals/I&O/Wt Last Vital Signs Temp 98.3 F 05/28/24 07:18 Pulse 81 05/28/24 07:18 Resp 16 05/28/24 07:18 BP 155/82 05/28/24 07:18 Pulse Ox 98 05/28/24 07:18 O2 Del Method Room Air 05/28/24 07:18 05/27/24 05/28/24 05/28/24 22:59 06:59 14:59 Intake Total 110 / 140 120 / 120 Balance 110 / 135 120 / 120 Weight last 48 hrs Weight 93.848 kg Weight 93.848 kg Weight 94.546 kg Weight 94.574 kg Physical Exam 2 Narrative: No apparent respiratory distress. Vital signs noted. Afebrile. HEENT normocephalic/atraumatic. Neck is supple Right anterior chest wall permacath is clean and dry. Lungs are clear to auscultation bilaterally. Heart is regular. Abdomen is soft distended poor bowel sounds, diffuse mild tenderness by her Tenckhoff catheter. Extremities no significant edema. Neuro awake alert oriented x 3. Data 05/28/24 03:27 05/28/24 03:27 Micro: Microbiology 05/26/24 11:57 Gram Stain - Final Peritoneal Fluid Body Fluid Culture - Preliminary 05/23/24 23:45 Gram Stain - Final Peritoneal Fluid Body Fluid Culture - Final 05/25/24 10:59 Gram Stain - Final Peritoneal Fluid Body Fluid Culture - Preliminary A&P Assessment and plan (1) ESRD (end stage renal disease) on dialysis: 53-year-old lady diabetes hypertension CHF end-stage renal disease. Patient was being transitioned to peritoneal dialysis unfortunately PD catheter has not been working well. Patient now here with abdominal tenderness and she had a leukocytosis. 1. ID : - UTI- broad-spectrum antibiotics. -Concern for peritoniits and PD catheter removal - Need to be concerned about a possible fungal infection or tuberculosis or other causes of a sterile peritonitis. 2. Anemia -hemoglobin improved to 8.1 Ferritin 769 iron saturation 11.9% she is likely iron deficient and has a high ferritin from infection. Continue Epogen. Monitor hemoglobin. 3. ESRD -she is status post hemodialysis on 06/24 -HD today 4. Blood pressure is now stable. Patient was seen and examined using A/V equipment with the aid of a nurse. The patient consented to telehealth. Plan Antibiotics and remove PD catheter. Attestations 2 Medical Necessity Statement*: per medicine Coding Level of Care Code Acute Code for Chg Fwd Diagnoses ESRD (end stage renal disease) on dialysis N18.6; Z99.2
[2024-05-28] MEDS: heparin, porcine 1,000 unit/mL INJ 10 mL 1000 UNIT IV (12:00)
[2024-05-28 12:02] LABS: Glucose Point of Care 142 mg/dL (70-110)
[2024-05-28] MEDS: iron sucrose 200 MG in sodium chloride 0.9% (100 ml) 100 ML 220 MG IV (12:27)
[2024-05-28] MEDS: epoetin alfa 10,000 unit/mL INJ 10000 UNIT SUBCUT (14:25)
--- NOTE | 2024-05-28 14:26 | PC.SOCIAL ---
IMM Updated Updated pt on IMM. No questions voiced. Provided pt a copy. Initialed, dated, & timed copy in chart.
[2024-05-28] MEDS: vancomycin 750 MG in sodium chloride 0.9% 250 ML 250 MG IV (14:51)
[2024-05-28] MEDS: heparin, porcine 1,000 unit/mL INJ 10 mL 10000 UNIT INTRACATH (14:52)
[2024-05-28] MEDS: meropenem 1,000 mg SDV 500 MG IVP (14:53)
[2024-05-28] MEDS: acetaminophen 325 mg Tablet 650 MG PO ×2 (15:07→23:17)
[2024-05-28] MEDS: heparin 5,000 unit/mL INJ 1 mL 5000 UNIT SUBCUT ×2 (15:30→22:06)
--- NOTE | 2024-05-28 17:39 | ECG_ITS ---
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 Measurements Intervals [place] Rate: 85 P: 47 ME: 171 QRS: -53 QRSD: 86 T: 20 QT: 399 QTc: 476 Interpretive Statements SINUS RHYTHM WITH SINUS ARRHYTHMIA LEFT ANTERIOR FASCICULAR BLOCK [QRS AXIS <= -45, QR IN I, RS IN II] POSSIBLE ANTERIOR MYOCARDIAL INFARCTION , PROBABLY OLD [30 ms Q WAVE IN V3/V4, OR R < 0.2 mV IN V4] Compared to ECG 05/23/2024 17:41:47 Left anterior fascicular block now present Myocardial infarct finding still present Electronically Signed On 05-29-2024 7:37:56 CDT by Cornell Cisneros M.D. [id number]
[2024-05-28] MEDS: insulin lispro 100 unit/1 mL SUBCUT (17:41)
[2024-05-28] MEDS: atorvastatin 40 mg Tablet PO (17:41)
--- NOTE | 2024-05-28 18:16 | P.PN_ITS ---
Subjective 2 Subjective: She reports she is doing okay. Abdominal tenderness is slowly subsiding. Denies shortness of breath or chest pain. Vitals/I&O/Wt Last Vital Signs Temp 98.1 F 05/28/24 15:47 Pulse 116 H 05/28/24 16:28 Resp 16 05/28/24 15:47 BP 181/94 05/28/24 15:47 Pulse Ox 99 05/28/24 15:23 O2 Del Method Room Air 05/28/24 15:23 05/28/24 05/28/24 05/28/24 06:59 14:59 22:59 Intake Total 120 / 120 720 / 840 Output Total 4010 / 4010 Balance 120 / 120 -3290 / -3170 Weight last 48 hrs Weight 90.4 kg Weight 93.848 kg Weight 93.848 kg Weight 94.546 kg Weight 94.574 kg Physical Exam 2 Const: COMMON NORMALS: patient oriented x3 and alert GENERAL APPEARANCE: c ooperative ORIENTATION/CONSCIOUSNESS: Yes awake HENMT: COMMON NORMALS: oropharynx normal Neck/C-Spine: COMMON NORMALS: no JVD Resp: COMMON NORMALS: normal respiratory effort and clear to auscultation bilaterally AUSCULTATION: clear to auscultation bilaterally Cardio: COMMON NORMALS: no JVD, regular rhythm, S1 normal heart sound present, S2 normal heart sound present and No murmurs present (Cardio) RHYTHM: regular rhythm HEART SOUNDS: S1 normal heart sound present and S2 normal heart sound present GI: COMMON NORMALS: Normal to inspection, nondistended, normoactive bowel sounds present and Soft to palpation PALPATION: Yes Soft to palpation and Yes Tenderness to palpation present (GI) Extremity: COMMON NORMALS: no joint enlargement and no pedal edema Neuro: COMMON NORMALS: patient oriented x3 and moves all extremities S ENSORIUM/ORIENTATION: Yes alert Skin: COMMON NORMALS: no rashes or lesions noted GENERAL SKIN EXAM: no rashes or lesions noted Data 05/28/24 03:27 05/28/24 03:27 Micro: Microbiology 05/27/24 09:27 Catheter Tip Culture - Preliminary Other Source 05/26/24 11:57 Gram Stain - Final Peritoneal Fluid Body Fluid Culture - Preliminary 05/25/24 10:59 Gram Stain - Final Peritoneal Fluid Body Fluid Culture - Final A&P Assessment and plan (1) Peritonitis due to infected peritoneal dialysis catheter: Reviewed vitals, CBC, blood culture, peritoneal fluid culture. Reviewed infectious disease consultation note. Discussed with nursing, corrections caseworker. Continue meropenem, vancomycin at current time. Monitor for risk of seizure with meropenem. Reassess renal function, monitor vancomycin level with vancomycin treatment. Repeat blood counts. Follow-up pending cultures. (2) Sepsis: Sepsis resolved. Most likely in setting of cystitis along with PD peritonitis given abdominal tenderness, unable to drain peritoneal fluid for last 2 weeks. Follow-up blood culture, urine culture, MRSA swab, peritoneal fluid culture from 05/23 and 05/25. Keep mean artery pressure 65. Awaiting stool studies. (3) Acute cystitis: Reviewed urine culture, 20-30,000 mixed superficial aline. Appreciate urinalysis, CT abdomen pelvis. Appreciate past culture history with history of UTI with E. coli in 03/22/2024. Also has history of strep UTI. Follow-up blood culture, urine culture. Given significant cell count on PD fluid switching from IV ceftriaxone to IV Zosyn. (4) Anemia: Concerns for iron deficiency anemia. Received EPO as per nephrology. Received IV iron. Reviewed CBC. Repeat. Appreciate vitamin B12 and folate levels. Post monitor blood transfusion. Target hemoglobin more than 7. Qualifiers: Anemia type: due to chronic kidney disease Chronic kidney disease stage: on chronic dialysis Qualified Code(s): N18.6 - End stage renal disease; D63.1 - Anemia in chronic kidney disease; Z99.2 - Dependence on renal dialysis (5) ESRD (end stage renal disease) on dialysis: On hemodialysis. With a trial of possible transition to peritoneal dialysis as an outpatient but being unsuccessful so far Reviewed nephrology note. Monitor BMP daily. (6) Hypokalemia: Resolved. Potassium stable. Recheck daily. (7) CHF (congestive heart failure): Currently euvolemic. No echocardiogram on chart. Will check echocardiogram. Qualifiers: Heart failure chronicity: unspecified Heart failure type: unspecified Qualified Code(s): I50.9 - Heart failure, unspecified (8) Uncontrolled type 2 diabetes mellitus: Last A1c of 11.3. Repeat A1c 8.4. Getting better controlled. For now we will start on high-dose dose protocol Humalog. Will add Lantus depending on insulin requirement in the next 24 hours. Qualifiers: Glycemic state: with hyperglycemia Qualified Code(s): E11.65 - Type 2 diabetes mellitus with hyperglycemia (9) Chronic post-traumatic stress disorder (PTSD): Continue with home dose of duloxetine. (10) Peritoneal dialysis catheter in place: Plan Hypertension: Blood pressure elevated 181/94. Will resume hydralazine 25 mg 3 times daily. For now continue with home dose of amlodipine, Imdur, metoprolol. Hold off on home dose of lisinopril and hydralazine. Will uptitrate for goal blood pressure. Renal diabetic dialysis diet Heparin 5000 every 12 daily for DVT prophylaxis Protonix OPD prophylaxis Full code Attestations 2 Medical Necessity Statement*: Requires further hospitalization for management of peritonitis after PD in a patient with end-stage renal disease on hemodialysis. and High MDM includes amount and/or complexity of data reviewed/ordered [ previous or external records, resulted lab(s)/test(s), ordered lab(s)/test(s) and other healthcare professional discussion] and described risk of complication, morbidity or mortality of management as documented Diagnoses Peritonitis due to infected peritoneal dialysis catheter T85.71XA; K65.9 Sepsis A41.9 Acute cystitis N30.00 Anemia due to chronic kidney disease, on chronic dialysis N18.6; D63.1; Z99.2 Anemia type: due to chronic kidney disease Chronic kidney disease stage: on chronic dialysis ESRD (end stage renal disease) on dialysis N18.6; Z99.2 Hypokalemia E87.6 Congestive heart failure, unspecified HF chronicity, unspecified heart failure type I50.9 Heart failure chronicity: unspecified Heart failure type: unspecified Uncontrolled type 2 diabetes mellitus with hyperglycemia E11.65 Glycemic state: with hyperglycemia Chronic post-traumatic stress disorder (PTSD) F43.12 Peritoneal dialysis catheter in place Z99.2
[2024-05-28] MEDS: hyDRALAzine 25 mg Tablet PO (19:22)
[2024-05-28 20:29] LABS: Glucose Point of Care 103 mg/dL (70-110)
[2024-05-29] VITALS (10 sets, daily range): BP systolic 136–172; BP diastolic 77–96; PULSE 65–95; RESP 15–17; TEMP 36.7–37.4; O2SAT 92–98
[2024-05-29] MEDS: meropenem 1,000 mg SDV 500 MG IVP (01:18)
[2024-05-29 04:53] LABS: Hematocrit 30.8 % (36-47); Mean Corpuscular HGB Conc 27.6 g/dL (30-55); Mean Corpuscular Hemoglobin 26.4 pg (27-33); Mean Corpuscular Volume 95.7 fl (85-98); Mean Platelet Volume 9.5 fL (7.4-10.4); Platelet Count 466 10^3/cmm (157-399); Red Blood Count 3.22 10^6/uL (3.85-5.65); Red Cell Distribution Width 15.6 % (12.1-15.1); White Blood Count 8.54 10^3/uL (3.29-11.43)
[2024-05-29 05:16] LABS: Blood Urea Nitrogen 19 mg/dL (6-20); Calcium 7.5 mg/dL (8.5-10.5); Carbon Dioxide 21 mmol/L (22-29); Chloride 101 mmol/L (98-107); Creatinine Clr Calc Pharmacy 17.9078; Glomerular Filtration Rate 11.7 mL/min (90-130); Glucose 101 mg/dL (65-115); Osmolality Calculated 280 mOsm/kg (285-295); Sodium 134 mmol/L (136-145)
[2024-05-29 05:24] LABS: Slide Review Slide Review Perform
[2024-05-29 05:25] LABS: Absolute Eosinophils 0.1 10^3/cmm (0.0-0.7); Absolute Segmented Neutrophil 4.8 10/cmm (1.6-7.1); Eosinophils 1 %; Lymphocytes 26 %; Monocytes Absolute 0.3 10^3/cmm (0.1-0.6); Platelet Estimate Increased (Normal); Poikilocytosis 1+; Segmented Neutrophils 56 %; Total Cells Counted 100 (0-100)
[2024-05-29 05:28] LABS: Anion Gap 16.3 (5-19); Potassium 4.3 mmol/L (3.5-5.1)
[2024-05-29 06:33] LABS: Glucose Point of Care 99 mg/dL (70-110)
--- NOTE | 2024-05-29 08:11 | PC.PHAR ---
VANCOMYCIN DAILY REVIEW OBTAIN RANDOM VANCOMYCIN LEVEL TO DETERMINE IF DOSE NEEDED TODAY, DIALYSIS NOT SCHEDULED
[2024-05-29] MEDS: metoprolol succinate ER (24 HR) 25 mg Tablet PO ×2 (08:42→17:07)
[2024-05-29] MEDS: pantoprazole DR 40 mg Tablet PO (08:42)
[2024-05-29] MEDS: lisinopril 20 mg Tablet PO (08:42)
[2024-05-29] MEDS: hyDRALAzine 25 mg Tablet PO ×2 (08:42→14:00)
[2024-05-29] MEDS: duloxetine 60 mg Capsule PO (08:42)
[2024-05-29] MEDS: isosorbide mononitrate ER 30 mg Tablet PO (08:42)
[2024-05-29 09:15] LABS: Vancomycin Random 23.6 ug/mL (20.0-40.0)
[2024-05-29] MEDS: heparin 5,000 unit/mL INJ 1 mL 5000 UNIT SUBCUT ×2 (10:51→20:42)
[2024-05-29 11:22] LABS: Glucose Point of Care 105 mg/dL (70-110)
[2024-05-29] MEDS: meropenem 500 mg SDV IVP ×2 (11:36→23:22)
--- NOTE | 2024-05-29 11:51 | PC.NURSE ---
Given orders from Dr Abdul to not give the Vancomycin ordered after dialysis, as there is no dialysis scheduled for today.
--- NOTE | 2024-05-29 12:33 | ECG_ITS ---
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 Measurements Intervals [place] Rate: 82 P: 47 [place]: 169 QRS: -60 QRSD: 88 T: 45 QT: 405 QTc: 474 Interpretive Statements SINUS RHYTHM LOW QRS VOLTAGE [QRS DEFLECTION < 0.5/1.0 mV IN LIMB/CHEST LEADS] LEFT ANTERIOR FASCICULAR BLOCK [QRS AXIS <= -45, QR IN I, RS IN II] POSSIBLE ANTERIOR MYOCARDIAL INFARCTION , PROBABLY OLD [30 ms Q WAVE IN V3/V4, OR R < 0.2 mV IN V4] Compared to ECG 05/28/2024 17:39:08 Low QRS voltage now present Sinus arrhythmia no longer present Myocardial infarct finding still present Electronically Signed On 05-29-2024 16:26:40 CDT by Cornell Cisneros M.D. [id number]
[2024-05-29 16:51] LABS: Glucose Point of Care 136 mg/dL (70-110)
[2024-05-29] MEDS: atorvastatin 40 mg Tablet PO (17:07)
--- NOTE | 2024-05-29 18:49 | P.PN_ITS ---
Subjective 2 Subjective: Infectious disease progress note Abdominal pain is improving since removal of catheter on 05/27. Culture remains negative to date Medications: Reviewed: Yes Medication Review Details: Current Medications Acetaminophen (Acetaminophen 325 Mg Tablet) 650 mg PO Q6H PRN PRN Reason: Mild/Mod Pain Or Temp >/= 101 Last Admin: 05/26/24 23:47 Dose: 650 mg Atorvastatin Calcium (Atorvastatin 40 Mg Tablet) 40 mg PO 1700 [facility]MITA Last Admin: 05/26/24 16:04 Dose: 40 mg Bisacodyl (Bisacodyl 5 Mg Tablet) 10 mg PO DAILY PRN; Protocol PRN Reason: Constipation (see protocol) Duloxetine HCl (Duloxetine 60 Mg Capsule) 60 mg PO DAILY [facility] Last Admin: 05/26/24 08:53 Dose: 60 mg Glucagon (Glucagon 1 Mg/Ml Kit 1 Ml) 1 mg IM ONCE PRN; Protocol PRN Reason: Adult Acute Hypoglycemia Nursing Prot. Heparin Sodium (Porcine) (Heparin 5,000 Unit/Ml Inj 1 Ml) 5,000 unit SUBCUT Q12H [facility] Last Admin: 05/26/24 21:05 Dose: 5,000 unit Dextrose (D5w) 500 mls @ 0 mls/hr IV ONCE PRN; Protocol PRN Reason: Adult Acute Hypoglycemia Prot Dextrose (D10w) 125 mls @ 750 mls/hr IV PRN PRN; Protocol PRN Reason: Adult Acute Hypoglycemia Nursing Protocol Dextrose (D10w) 250 mls @ 1,000 mls/hr IV PRN PRN; Protocol PRN Reason: Adult Acute Hypoglycemia Nursing Protocol Iron Sucrose 200 mg/ Sodium (Chloride) 110 mls @ 220 mls/hr IV Q24H [facility]A Stop: 05/28/24 14:29 Last Infusion: 05/26/24 15:29 Dose: Infused Piperacillin Sod/Tazobactam (Sod 3.375 gm/ Sodium Chloride) 50 mls @ 12.5 mls/hr IV Q12H [facility]; Protocol Last Infusion: 05/27/24 06:34 Dose: Infused Insulin Human Lispro (Insulin Lispro 100 Unit/1 Ml) 0 unit SUBCUT WM&BEDTIME [facility]; Protocol Last Admin: 05/27/24 07:32 Dose: Not Given Isosorbide Mononitrate (Isosorbide Mononitrate Er 30 Mg Tablet) 30 mg PO DAILY [facility] Last Admin: 05/26/24 08:54 Dose: 30 mg Lactulose (Lactulose Oral Liq 20 Gm/30 Ml Udc) 10 gm PO DAILY PRN; Protocol PRN Reason: Constipation (see protocol) Magnesium Hydroxide (Magnesium Hydroxide 30 Ml Udc) 30 ml PO DAILY PRN; Protocol PRN Reason: Constipation (see protocol) Metoprolol Succinate (Metoprolol Succinate Er (24 Hr) 25 Mg Tablet) 25 mg PO BID [facility] Last Admin: 05/26/24 17:21 Dose: 25 mg Ondansetron HCl (Ondansetron 2 Mg/Ml Sdv 2 Ml) 4 mg IVP Q8H PRN PRN Reason: vomiting, or N/V if npo Last Admin: 05/24/24 21:14 Dose: 4 mg Pantoprazole Sodium (Pantoprazole Dr 40 Mg Tablet) 40 mg PO DAILY [facility] Last Admin: 05/26/24 08:53 Dose: 40 mg Peritoneal Dialysis Solution (Dianeal Low Ca W/1.5% Dex 2,000 Ml Bag) 1,000 ml INTRAPERIT ONCE [facility] Last Admin: 05/26/24 10:15 Dose: 1,000 ml Vitals/I&O/Wt Last Vital Signs Temp 98.5 F 05/29/24 15:41 Pulse 65 05/29/24 15:41 Resp 16 05/29/24 15:41 BP 142/96 05/29/24 15:41 Pulse Ox 92 05/29/24 15:41 O2 Del Method Room Air 05/29/24 15:41 Weight last 48 hrs Weight 92.306 kg Weight 92.306 kg Weight 90.4 kg Weight 93.848 kg Weight 93.848 kg Physical Exam 2 Narrative: General: No acute distress, AO x3 HEENT: PERRLA, pupils bilaterally equal and reactive, pallors not present Chest: Normal vesicular breath sounds, no added sounds, equal good air entry bilaterally CVS: S1-S2 regular, no murmurs, no tachycardia, no gallops, no rubs Abdomen: Soft, nontender, no organomegaly, bowel sounds present, PD catheter interval removal. Site of removal examined, no pus or discharge or surrounding cellulitis noted at this time. Neuro: No focal deficits, no facial deformity, AO x3, power 5/5 in all limbs Data 05/29/24 04:46 05/29/24 04:46 Micro: Microbiology 05/24/24 19:40 E. coli Shiga-like Toxin (PCR) - Final Stool Campylobacter (PCR) - Final 05/27/24 09:27 Catheter Tip Culture - Final Other Source 05/26/24 11:57 Gram Stain - Final Peritoneal Fluid Body Fluid Culture - Final 05/23/24 19:25 Blood Culture - Final Blood NO GROWTH AFTER 5 DAYS 05/23/24 19:19 Blood Culture - Final Blood NO GROWTH AFTER 5 DAYS A&P Assessment and plan (1) Peritonitis due to infected peritoneal dialysis catheter: PD peritonitis cx negative from 05/23, and 05/26 .PD Catheter removed on 05/27 Blood culture negative to date Continue meropenem and vancomycin through tomorrow She reports clinical improvement. Abdominal pain is much improved. She remains afebrile and hemodynamically stable Plan to narrow antibiotics to oral ciprofloxacin at the time of discharge Low suspicion for atypical process such as fungal or mycobacterial peritonitis given relatively recent placement, lack of underlying profoundly immunocompromising conditions. Attestations 2 Medical Necessity Statement*: Per admitting Coding Level of Care Code Acute Code for [facility] Diagnoses Peritonitis due to infected peritoneal dialysis catheter T85.71XA; K65.9
--- NOTE | 2024-05-29 18:56 | P.PN_ITS ---
Vitals/I&O/Wt Last Vital Signs Temp 98.5 F 05/29/24 15:41 Pulse 65 05/29/24 15:41 Resp 16 05/29/24 15:41 BP 142/96 05/29/24 15:41 Pulse Ox 92 05/29/24 15:41 O2 Del Method Room Air 05/29/24 15:41 Weight last 48 hrs Weight 92.306 kg Weight 92.306 kg Weight 90.4 kg Weight 93.848 kg Weight 93.848 kg Physical Exam 2 Const: COMMON NORMALS: patient oriented x3 and alert GENERAL APPEARANCE: c ooperative ORIENTATION/CONSCIOUSNESS: Yes awake HENMT: COMMON NORMALS: oropharynx normal Neck/C-Spine: COMMON NORMALS: no JVD Resp: COMMON NORMALS: normal respiratory effort and clear to auscultation bilaterally AUSCULTATION: clear to auscultation bilaterally Cardio: COMMON NORMALS: no JVD, regular rhythm, S1 normal heart sound present, S2 normal heart sound present and No murmurs present (Cardio) RHYTHM: regular rhythm HEART SOUNDS: S1 normal heart sound present and S2 normal heart sound present GI: COMMON NORMALS: Normal to inspection, nondistended, normoactive bowel sounds present and Soft to palpation PALPATION: Yes Soft to palpation and Yes Tenderness to palpation present (GI) Extremity: COMMON NORMALS: no joint enlargement and no pedal edema Neuro: COMMON NORMALS: patient oriented x3 and moves all extremities S ENSORIUM/ORIENTATION: Yes alert Skin: COMMON NORMALS: no rashes or lesions noted GENERAL SKIN EXAM: no rashes or lesions noted Data 05/29/24 04:46 05/29/24 04:46 Micro: Microbiology 05/24/24 19:40 E. coli Shiga-like Toxin (PCR) - Final Stool Campylobacter (PCR) - Final 05/27/24 09:27 Catheter Tip Culture - Final Other Source 05/26/24 11:57 Gram Stain - Final Peritoneal Fluid Body Fluid Culture - Final 05/23/24 19:25 Blood Culture - Final Blood NO GROWTH AFTER 5 DAYS 05/23/24 19:19 Blood Culture - Final Blood NO GROWTH AFTER 5 DAYS A&P Assessment and plan (1) Peritonitis due to infected peritoneal dialysis catheter: Symptomatically she is improving. Pain has been improving. Tenderness on deep palpation. Bowel sounds present. Had a bowel movement today. Discussed with infectious ease provider, reviewed infectious disease note. Reviewed vitals, CBC, blood culture, peritoneal fluid culture. Continue IV antibiotics today. Plan would be to switch to p.o. antibiotic with ciprofloxacin tomorrow and given overall improvement plan for discharge. Discussed with nursing, high risk case manager. Continue meropenem, vancomycin at current time. Monitor for risk of seizure with meropenem. Reassess renal function, monitor vancomycin level with vancomycin treatment. Repeat blood counts. (2) Sepsis: Sepsis resolved. Most likely in setting of cystitis along with PD peritonitis given abdominal tenderness, unable to drain peritoneal fluid for last 2 weeks. Follow-up blood culture, urine culture, MRSA swab, peritoneal fluid culture from 05/23 and 05/25. Keep mean artery pressure 65. Awaiting stool studies. (3) Acute cystitis: Urine culture, 20-30,000 mixed superficial aline. Appreciate urinalysis, CT abdomen pelvis. Appreciate past culture history with history of UTI with E. coli in 03/22/2024. Also has history of strep UTI. Follow-up blood culture, urine culture. Given significant cell count on PD fluid switching from IV ceftriaxone to IV Zosyn. (4) Anemia: Concerns for iron deficiency anemia. Received EPO as per nephrology. Received IV iron. Reviewed CBC. Repeat. Appreciate vitamin B12 and folate levels. Post monitor blood transfusion. Target hemoglobin more than 7. Qualifiers: Anemia type: due to chronic kidney disease Chronic kidney disease stage: on chronic dialysis Qualified Code(s): N18.6 - End stage renal disease; D63.1 - Anemia in chronic kidney disease; Z99.2 - Dependence on renal dialysis (5) ESRD (end stage renal disease) on dialysis: On hemodialysis. With a trial of possible transition to peritoneal dialysis as an outpatient but being unsuccessful so far Reviewed nephrology note. Monitor BMP daily. (6) Hypokalemia: Resolved. Potassium stable. Recheck daily. (7) CHF (congestive heart failure): Currently euvolemic. No echocardiogram on chart. Will check echocardiogram. Qualifiers: Heart failure chronicity: unspecified Heart failure type: unspecified Qualified Code(s): I50.9 - Heart failure, unspecified (8) Uncontrolled type 2 diabetes mellitus: Last A1c of 11.3. Repeat A1c 8.4. Getting better controlled. For now we will start on high-dose dose protocol Humalog. Will add Lantus depending on insulin requirement in the next 24 hours. Qualifiers: Glycemic state: with hyperglycemia Qualified Code(s): E11.65 - Type 2 diabetes mellitus with hyperglycemia (9) Chronic post-traumatic stress disorder (PTSD): Continue with home dose of duloxetine. (10) Peritoneal dialysis catheter in place: Plan Hypertension: Blood pressure overall better, but still elevated 142/96 today and earlier up as high as 172/82 earlier this morning. Adjust hydralazine dose up to 50 mg. For now continue with home dose of amlodipine, Imdur, metoprolol. Hold off on home dose of lisinopril and hydralazine. Renal diabetic dialysis diet Heparin 5000 every 12 daily for DVT prophylaxis Protonix OPD prophylaxis Full code Attestations 2 Medical Necessity Statement*: Requires further hospitalization for management of peritonitis after PD in a patient with end-stage renal disease on hemodialysis. and High MDM includes amount and/or complexity of data reviewed/ordered [ previous or external records, resulted lab(s)/test(s), ordered lab(s)/test(s) and other healthcare professional discussion] as documented Diagnoses Peritonitis due to infected peritoneal dialysis catheter T85.71XA; K65.9 Sepsis A41.9 Acute cystitis N30.00 Anemia due to chronic kidney disease, on chronic dialysis N18.6; D63.1; Z99.2 Anemia type: due to chronic kidney disease Chronic kidney disease stage: on chronic dialysis ESRD (end stage renal disease) on dialysis N18.6; Z99.2 Hypokalemia E87.6 Congestive heart failure, unspecified HF chronicity, unspecified heart failure type I50.9 Heart failure chronicity: unspecified Heart failure type: unspecified Uncontrolled type 2 diabetes mellitus with hyperglycemia E11.65 Glycemic state: with hyperglycemia Chronic post-traumatic stress disorder (PTSD) F43.12 Peritoneal dialysis catheter in place Z99.2
--- NOTE | 2024-05-29 19:37 | P.PN_ITS ---
Subjective 2 Subjective: NO NEW C/O Medications: Reviewed: Yes Vitals/I&O/Wt Last Vital Signs Temp 98.5 F 05/29/24 15:41 Pulse 65 05/29/24 15:41 Resp 16 05/29/24 15:41 BP 142/96 05/29/24 15:41 Pulse Ox 92 05/29/24 15:41 O2 Del Method Room Air 05/29/24 15:41 Weight last 48 hrs Weight 92.306 kg Weight 92.306 kg Weight 90.4 kg Weight 93.848 kg Weight 93.848 kg Physical Exam 2 Narrative: No apparent respiratory distress. Vital signs noted. Afebrile. HEENT normocephalic/atraumatic. Neck is supple Right anterior chest wall permacath is clean and dry. Lungs are clear to auscultation bilaterally. Heart is regular. Abdomen is soft distended poor bowel sounds, diffuse mild tenderness by her Tenckhoff catheter. Extremities no significant edema. Neuro awake alert oriented x 3. Data 05/29/24 04:46 05/29/24 04:46 Micro: Microbiology 05/24/24 19:40 E. coli Shiga-like Toxin (PCR) - Final Stool Campylobacter (PCR) - Final 05/27/24 09:27 Catheter Tip Culture - Final Other Source 05/26/24 11:57 Gram Stain - Final Peritoneal Fluid Body Fluid Culture - Final 05/23/24 19:25 Blood Culture - Final Blood NO GROWTH AFTER 5 DAYS 05/23/24 19:19 Blood Culture - Final Blood NO GROWTH AFTER 5 DAYS A&P Assessment and plan (1) ESRD (end stage renal disease) on dialysis: 53-year-old lady diabetes hypertension CHF end-stage renal disease. Patient was being transitioned to peritoneal dialysis unfortunately PD catheter has not been working well. Patient now here with abdominal tenderness and she had a leukocytosis. 1. ID : - UTI- broad-spectrum antibiotics. -Concern for peritoniits and PD catheter removal - Need to be concerned about a possible fungal infection or tuberculosis or other causes of a sterile peritonitis. 2. Anemia -hemoglobin improved to 8.1 Ferritin 769 iron saturation 11.9% she is likely iron deficient and has a high ferritin from infection. Continue Epogen. Monitor hemoglobin. 3. ESRD -she is status post hemodialysis on 06/24 -HD tomorrow 4. Blood pressure is now stable. Patient was seen and examined using A/V equipment with the aid of a nurse. The patient consented to telehealth. Plan Antibiotics and remove PD catheter. Attestations 2 Medical Necessity Statement*: per shona Coding Level of Care Code Acute Code for [facility] Diagnoses ESRD (end stage renal disease) on dialysis N18.6; Z99.2
[2024-05-29 20:21] LABS: Glucose Point of Care 150 mg/dL (70-110)
[2024-05-29] MEDS: hyDRALAzine 25 mg Tablet 50 MG PO (20:42)
[2024-05-29] MEDS: insulin lispro 100 unit/1 mL SUBCUT (20:42)
[2024-05-30] VITALS (9 sets, daily range): BP systolic 138–185; BP diastolic 77–90; PULSE 79–93; RESP 15–17; TEMP 36.7–37.3; O2SAT 96–97; BMI 34.4
[2024-05-30 05:01] LABS: Basophils # 0.1 10^3/uL (0.0-0.1); Basophils % 1.2 %; Eosinophils # 0.2 10^3/uL (0.0-0.8); Eosinophils % 1.8 %; Hematocrit 27.4 % (36-47); Lymphocytes # 2.8 10^3/uL (0.8-4.8); Lymphocytes % 31.1 %; Mean Corpuscular Hemoglobin 26.6 pg (27-33); Mean Corpuscular Volume 85.6 fl (85-98); Mean Platelet Volume 9.1 fL (7.4-10.4); Monocytes # 0.7 10^3/uL (0.2-0.9); Monocytes % 7.2 %; Neutrophils # 4.66 10^3/uL (1.8-7.7); Nucleated Red Blood Cells % 0 %; Platelet Count 704 10^3/cmm (157-399); Red Cell Distribution Width 15.6 % (12.1-15.1); White Blood Count 8.97 10^3/uL (3.29-11.43)
[2024-05-30 05:28] LABS: Blood Urea Nitrogen 24 mg/dL (6-20); Calcium 7.8 mg/dL (8.5-10.5); Carbon Dioxide 24 mmol/L (22-29); Chloride 101 mmol/L (98-107); Creatinine Clr Calc Pharmacy 14.9232; Glomerular Filtration Rate 9.5 mL/min (90-130); Glucose 90 mg/dL (65-115); Osmolality Calculated 290 mOsm/kg (285-295); Sodium 138 mmol/L (136-145); Vancomycin Random 22.4 ug/mL (20.0-40.0)
[2024-05-30 05:32] LABS: Slide Review Slide Review Perform
[2024-05-30 06:30] LABS: Glucose Point of Care 95 mg/dL (70-110)
[2024-05-30] MEDS: isosorbide mononitrate ER 30 mg Tablet PO (08:40)
[2024-05-30] MEDS: metoprolol succinate ER (24 HR) 25 mg Tablet PO (08:41)
[2024-05-30] MEDS: duloxetine 60 mg Capsule PO (08:41)
[2024-05-30] MEDS: lisinopril 20 mg Tablet PO (08:41)
[2024-05-30] MEDS: pantoprazole DR 40 mg Tablet PO (08:41)
[2024-05-30] MEDS: hyDRALAzine 25 mg Tablet 50 MG PO (08:41)
--- NOTE | 2024-05-30 09:27 | PC.HD ---
Heparin 1000 units loading dose administered via venous port of HD catheter at 0910 per internet marketing executive's orders.
--- NOTE | 2024-05-30 10:52 | PC.SOCIAL ---
IMM Updated Updated pt on IMM. No questions voiced. Provided pt a copy. Initialed, dated, & timed copy in chart.
[2024-05-30 11:15] LABS: Glucose Point of Care 100 mg/dL (70-110)
[2024-05-30] MEDS: heparin 5,000 unit/mL INJ 1 mL 5000 UNIT SUBCUT (11:40)
--- NOTE | 2024-05-30 12:33 | PC.NURSE ---
Discharge Note Patient discharged to home via private vehicle accompanied by family member. Discharge instructions reviewed with patient and/or medical sales representative. Mobile pharmacy medications and/or prescriptions provided. Belongings/home medications returned.
--- NOTE | 2024-05-30 12:38 | P.DS_ITS ---
Discharge Providers Date of Admission: 05/23/24 19:51 Date of Discharge: May 30, 2024 Attending Provider at Admission: Lawson Diaz MD Attending Provider at Discharge: Sean Abdul Primary Care Provider: SEGUN Mulligan Diagnoses at Discharge Discharge Diagnosis (1) ESRD (end stage renal disease) on dialysis: Status: Acute Reason for Visit Reason for Visit: UTI Hospital Course Hospital Course 53-year-old lady with ESRD on hemodialysis, with attempted transition to peritoneal dialysis, DM 2, anemia, hypertension, seronegative spondyloarthropathy, depression, FRANCK, other medical problems was admitted on 05/23 due to low-grade fever, generalized weakness, frequent falls, dizziness, low blood pressure, urinary hesitancy, dysuria, dark bowel movements, she had been transition to peritoneal dialysis in the preceding 2 weeks, but had been unable to drain fluid through PD catheter. PD catheter dressing was soaked with discharge. Was found to have sepsis, peritonitis, acute cystitis, hypokalemia. Was continued on hemodialysis. Treated with IV antibiotic coverage. Fluid analysis suggestive of peritonitis, cultures unrevealing. PD catheter removed on 05/27. Continued on empiric antibiotic coverage, broadened to meropenem and vancomycin. Blood cultures remain negative. Peritoneal fluid cultures nonrevealing. Sepsis resolved with treatment. Leukocytosis resolved. Abdominal pain and tenderness resolved. She is tolerating hemodialysis. We discussed with her completion of antibiotic course with ciprofloxacin after discharge and discussed potential risks. She is aware to seek medical attention in case of worsening or new concerning symptoms. For now blood pressure has been doing okay with hydralazine 50 mg 3 times daily, but as per discussion with her in case continues to improve increase above 150/90, may increase back to her usual dose 100 mg 3 times daily. Physical Exam Narrative: Undergoing hemodialysis. Const: COMMON NORMALS: patient oriented x3 and alert GENERAL APPEARANCE: cooperative ORIENTATION/CONSCIOUSNESS: Yes awake HENMT: COMMON NORMALS: oropharynx normal Neck/C-Spine: COMMON NORMALS: no JVD Resp: COMMON NORMALS: normal respiratory effort and clear to auscultation bilaterally AUSCULTATION: clear to auscultation bilaterally Cardio: COMMON NORMALS: no JVD, regular rhythm, S1 normal heart sound present, S2 normal heart sound present and No murmurs present (Cardio) RHYTHM: regular rhythm HEART SOUNDS: S1 normal heart sound present and S2 normal heart sound present GI: COMMON NORMALS: Normal to inspection, nondistended, normoactive bowel sounds present and Soft to palpation PALPATION: Yes Soft to palpation and Yes Tenderness to palpation present (GI) Extremity: COMMON NORMALS: no joint enlargement and no pedal edema Neuro: COMMON NORMALS: patient oriented x3 and moves all extremities SENSORIUM/ORIENTATION: Yes alert Skin: COMMON NORMALS: no rashes or lesions noted GENERAL SKIN EXAM: no rashes or lesions noted Discharge Data Studies Completed and Pending Completed Studies During Hospitalization Category Date Time Status CT abdomen renal stone [CT kidney stone 72398] Stat Cat Scan 05/23/24 17:39 Completed CXRP [XR chest 1V portable [id number]] Stat Exams 05/23/24 17:32 Completed Pending at discharge Category Date Time Status Amylase, Peritoneal Fluid Routine Lab 05/24/24 11:10 Received Basic Metabolic Panel AM LABS Lab 05/31/24 04:00 Ordered Complete Blood Count w/Auto AM LABS Lab 05/31/24 04:00 Ordered OVA and Parasites, Conc and PE Routine Lab 05/23/24 19:43 Results Salmonella / Shigella / Campy Routine Lab 05/23/24 19:43 Results Vancomycin Random AM LABS Lab 05/31/24 04:00 Ordered Vancomycin Random AM LABS Lab 06/01/24 04:00 Ordered Radiology Impressions Chest X-Ray 05/23/24 17:32 IMPRESSION: Mild left basilar atelectasis. No focal consolidations or pleural effusions. Abdomen/Pelvis CT 05/23/24 17:39 IMPRESSION: 1. Peritoneal dialysis catheter terminates within the lower pelvis. Small volume free fluid. No pneumoperitoneum. 2. Hyperattenuating material within the dependent portion of the gallbladder may represent small stones versus sludge. 3. Circumferential bladder wall thickening concerning for cystitis in the appropriate clinical setting. 4. Anasarca. Laboratory Results WBC 8.97 10^3/uL (3.29-11.43) 05/30/24 04:34 RBC 3.20 10^6/uL (3.85-5.65) L 05/30/24 04:34 Hgb 8.50 g/dL (11.27-16.99) L 05/30/24 04:34 Hct 27.4 % (36-47) L 05/30/24 04:34 MCV 85.6 fl (85-98) D 05/30/24 04:34 MCH 26.6 pg (27-33) L 05/30/24 04:34 MCHC 31.0 g/dL (30-55) D 05/30/24 04:34 RDW 15.6 % (12.1-15.1) H 05/30/24 04:34 Plt Count 704 10^3/cmm (157-399) H D 05/30/24 04:34 MPV 9.1 fL (7.4-10.4) 05/30/24 04:34 Neut % (Auto) 52.0 % 05/30/24 04:34 Lymph % (Auto) 31.1 % 05/30/24 04:34 [place] % (Auto) 7.2 % 05/30/24 04:34 Eos % (Auto) 1.8 % 05/30/24 04:34 Baso % (Auto) 1.2 % 05/30/24 04:34 Neut # (Auto) 4.66 10^3/uL (1.8-7.7) 05/30/24 04:34 Lymph # (Auto) 2.8 10^3/uL (0.8-4.8) 05/30/24 04:34 [place] # (Auto) 0.7 10^3/uL (0.2-0.9) 05/30/24 04:34 Eos # (Auto) 0.2 10^3/uL (0.0-0.8) 05/30/24 04:34 Baso # (Auto) 0.1 10^3/uL (0.0-0.1) 05/30/24 04:34 Nucleated RBC % (auto) 0 % 05/30/24 04:34 Total Counted 100 (0-100) 05/29/24 04:46 Atypical Lymphs % Not Reportable 05/29/24 04:46 Segmented Neutrophils 56 % 05/29/24 04:46 Abs Segm Neuts (Man) 4.8 10/cmm (1.6-7.1) 05/29/24 04:46 Band Neutrophils Not Reportable 05/29/24 04:46 Lymphocytes (Manual) 26 % 05/29/24 04:46 Monocytes (Manual) 4.0 % 05/29/24 04:46 Absolute Monocytes 0.3 10^3/cmm (0.1-0.6) 05/29/24 04:46 Eosinophils (Manual) 1 % 05/29/24 04:46 Absolute Eosinophils 0.1 10^3/cmm (0.0-0.7) 05/29/24 04:46 Basophils (Manual) 0.0 % 05/29/24 04:46 Absolute Basophils 0.0 10^3/cmm (0.0-0.2) 05/29/24 04:46 Myelocytes 4.0 % 05/29/24 04:46 Promyelocytes 7.0 % 05/29/24 04:46 Nucleated RBCs 2.0 /100WBC (0-1) H 05/29/24 04:46 Nucleated RBCs # 0.0 /100WBC 05/30/24 04:34 Differential Comment Cancelled 05/24/24 11:10 Platelet Estimate Increased (Normal) H 05/29/24 04:46 Poikilocytosis 1+ H 05/29/24 04:46 Sodium 138 mmol/L (136-145) 05/30/24 04:34 Potassium 5.0 mmol/L (3.5-5.1) 05/30/24 04:34 Chloride 101 mmol/L (98-107) 05/30/24 04:34 Carbon Dioxide 24 mmol/L (22-29) 05/30/24 04:34 Anion Gap 18.0 (5-19) 05/30/24 04:34 BUN 24 mg/dL (6-20) H 05/30/24 04:34 Creatinine 4.8 mg/dL (0.5-0.9) H 05/30/24 04:34 GFR Calculation 9.5 mL/min (90-130) L 05/30/24 04:34 Glucose 90 mg/dL (65-115) 05/30/24 04:34 POC Glucose 100 mg/dL (70-110) 05/30/24 10:56 Estimat Average Glucose 194 05/24/24 04:39 Hemoglobin A1c 8.4 % (4.0-6.0) H 05/24/24 04:39 Calculated Osmolality 290 mOsm/kg (285-295) 05/30/24 04:34 Lactic Acid 0.9 mmol/L (0.5-2.2) 05/23/24 20:06 Calcium 7.8 mg/dL (8.5-10.5) L 05/30/24 04:34 Phosphorus 3.2 mg/dL (2.5-4.5) 05/27/24 05:43 Magnesium 1.8 mg/dL (1.7-2.3) 05/27/24 05:43 Iron 8 ug/dL (37-145) L 05/24/24 04:39 TIBC 67 mcg/dl 05/24/24 04:39 % Saturation 11.9 % (20-50) L 05/24/24 04:39 Unsat Iron Binding 59 ug/dL (112-347) L 05/24/24 04:39 Ferritin 769 ng/mL (15-150) H 05/24/24 04:39 Total Bilirubin 0.2 mg/dL (0.15-1.2) 05/28/24 03:27 AST 13 U/L (0-32) 05/28/24 03:27 ALT < 5 U/L (0-33) 05/28/24 03:27 Alkaline Phosphatase 79 U/L (35-105) 05/28/24 03:27 Total Protein 5.8 g/dL (6.6-8.7) L 05/28/24 03:27 Albumin 2.2 g/dL (3.5-5.2) L 05/28/24 03:27 Globulin 3.6 g/dL (1.3-4.6) 05/28/24 03:27 Triglycerides 111 mg/dL (0-150) 05/24/24 04:39 Cholesterol 97 mg/dL (0-200) 05/24/24 04:39 LDL Cholesterol, Calc 50 mg/dL (50-129) 05/24/24 04:39 HDL Cholesterol 25 mg/dL (60-100) L 05/24/24 04:39 LDL/HDL Ratio 2.00 RATIO (0.00-3.22) 05/24/24 04:39 Cholesterol/HDL Ratio 3.88 mg/dL (0.0-4.40) 05/24/24 04:39 Vitamin B12 446 pg/mL (232-1245) 05/23/24 18:08 Folate 5.8 ng/mL (4.8-37.3) 05/24/24 04:39 Procalcitonin 1.97 ng/mL (0-0.5) H 05/24/24 04:39 TSH 2.83 uIU/mL (0.27-4.20) 05/23/24 18:08 Urine Color Yellow (Yellow) 05/23/24 16:15 Urine Appearance Turbid (CLEAR) A 05/23/24 16:15 Urine pH 7.0 (5-7) 05/23/24 16:15 Ur Specific [place] 1.016 (1.005-1.030) 05/23/24 16:15 Urine Protein 3+ (Negative) A 05/23/24 16:15 Urine Glucose (UA) 2+ (Normal) H 05/23/24 16:15 Urine Ketones Negative (Negative) 05/23/24 16:15 Urine Blood 1+ (Negative) A 05/23/24 16:15 Urine Nitrate Negative (Negative) 05/23/24 16:15 Urine Bilirubin Negative (Negative) 05/23/24 16:15 Urine Urobilinogen 1.0 mg/dL (Negative) 05/23/24 16:15 Ur Leukocyte Esterase 2+ (Negative) A 05/23/24 16:15 Urine RBC 3-5 /hpf (0-2) 05/23/24 16:15 Urine WBC >100 /hpf (0-5) H 05/23/24 16:15 Ur Squamous Epith Cells 11-20 /hpf (0-5) 05/23/24 16:15 Ur Transition Epith Cell 0-4 /hpf 05/23/24 16:15 Amorphous Sediment Not Reportable 05/23/24 16:15 Urine Bacteria 1+ /hpf (NONE) H 05/23/24 16:15 Hyaline Casts 8.67 /lpf 05/23/24 16:15 Fine Granular Casts 0-4 /lpf H 05/23/24 16:15 Coarse Granular Casts Rare /lpf 05/23/24 16:15 Urine Yeast 1+ /hpf H 05/23/24 16:15 Fluid Color Cancelled 05/24/24 11:10 Fluid Appearance Cancelled 05/24/24 11:10 Fluid WBC Cancelled 05/24/24 11:10 Fluid RBC Cancelled 05/24/24 11:10 Fluid Tot Cell Count Cancelled 05/24/24 11:10 Fld Polynuclear WBCs # Cancelled 05/24/24 11:10 Fld Polynuclear WBCs % Cancelled 05/24/24 11:10 Fl Mononucl WBCs #(Auto) Cancelled 05/24/24 11:10 Fl Mononuclear % Auto Cancelled 05/24/24 11:10 Fld Crystal Laterality Cancelled 05/24/24 11:10 Peritoneal Color Pale yellow (Pale Yellow) 05/26/24 11:57 Peritoneal Appearance Cloudy (Clear) 05/26/24 11:57 Peritoneal pH 6.0 05/24/24 11:10 Peritoneal Spec [place] Not Reportable 05/24/24 11:10 Peritoneal WBC 5184 /uL 05/26/24 11:57 Peritoneal RBC 3 10^3/uL 05/26/24 11:57 Periton Mononu # Auto 2.176 10^3/uL 05/26/24 11:57 Mononuclear WBCs % 42.000 % 05/26/24 11:57 Polynuclear WBCs % 58.000 % 05/26/24 11:57 Perit Polynuc WBCs # 3.008 10^3/uL 05/26/24 11:57 Peritoneal Diff Commnt Yes 05/26/24 11:57 Peritoneal Tot Protein 0.6 g/dL 05/24/24 11:10 Peritoneal Albumin 0.3 g/dL 05/24/24 11:10 Peritoneal LDH 404.0 U/L 05/24/24 11:10 Peritoneal Glucose TNP 05/24/24 11:10 Pleural Color Cancelled 05/26/24 11:57 Pleural Appearance Cancelled 05/26/24 11:57 Pleural WBC Cancelled 05/26/24 11:57 Pleural RBC Cancelled 05/26/24 11:57 Pleural Other Cells Cancelled 05/26/24 11:57 Pleural Polynuclear % Cancelled 05/26/24 11:57 Pleural Mononuclear % Cancelled 05/26/24 11:57 Random Vancomycin 22.4 ug/mL (20.0-40.0) 05/30/24 04:34 C. difficile (PCR) Negative (Negative) 05/24/24 19:40 Hep Bs Antigen Non-reactive (Nonreactive) 05/24/24 04:39 Hep Bs Antibody > 1000.0 (11.5-1000) H 05/24/24 04:39 Hepatitis C Antibody Non-reactive (Nonreactive) 05/24/24 04:39 SARS-CoV-2 Ag (Rapid) negative (Negative) 05/23/24 16:15 MRSA (PCR) Not detected (NOT DETECTED) 05/25/24 12:03 Path Cons w/Slide Cancelled 05/26/24 11:57 Blood Type O Positive 05/24/24 13:49 Rho(D) Type Rh positive 05/24/24 13:49 Antibody Screen Negative 05/24/24 13:49 Crossmatch See Detail 05/24/24 13:49 Vitals Last Vital Signs Temp 98.1 F 05/30/24 09:26 Pulse 79 05/30/24 12:31 Resp 16 05/30/24 12:31 BP 169/88 05/30/24 12:31 Pulse Ox 96 05/30/24 08:00 O2 Del Method Room Air 05/30/24 08:00 Discharge Plan Discharge Patient Disposition: Home Condition: Stable Prescriptions: New ciprofloxacin HCl 500 mg tablet 500 mg PO BID Qty: 10 0RF Continued (DME) lancets [BD Ultra Fine Lancets] 33 gauge misc See Rx Instructions .ROUTE .MEDSUPPLY Qty: 100 3RF Rx Instructions: two times daily duloxetine [Cymbalta] 60 mg capsule,delayed release(DR/EC) 60 mg PO DAILY Qty: 90 0RF Rx Instructions: Take one capsule by mouth every day; stop 30 mg dose (DME) FreeStyle [place] 2 Sensor Kit See Rx Instructions .Route Qty: 6 3RF Rx Instructions: Change every 14 days. (DME) diabetic shoes with 3 inserts See Rx Instructions .Route .MEDSUPPLY Qty: 1 0RF Rx Instructions: As directed to the [place] (DME) FreeStyle [place] 2 [place] Misc See Rx Instructions .Route Qty: 1 0RF Rx Instructions: As directed (DME) pen needle, diabetic 32 gauge x 1/4 needle See Rx Instructions .ROUTE .MEDSUPPLY Qty: 100 3RF Rx Instructions: As directed atorvastatin 40 mg tablet See Rx Instructions .ROUTE .COMPLEX Qty: 60 11RF Dose Instruction: TAKE ONE TABLET BY MOUTH DAILY AT 5PM Rx Instructions: TAKE ONE TABLET BY MOUTH DAILY AT 5PM Humulin R U-500 (Conc) Kwikpen 500 unit/mL (3 mL) insulin pen See Rx Instructions .ROUTE .COMPLEX Qty: 48 1RF Dose Instruction: INJECT 40 UNITS SUBCUTANEOUSLY WITH BREAKFAST, INJECT 100 UNITS WITH LUNCH AND INJECT 100 UNITS WITH SUPPER Rx Instructions: INJECT 40 UNITS SUBCUTANEOUSLY WITH BREAKFAST, INJECT 100 UNITS WITH LUNCH AND INJECT 100 UNITS WITH SUPPER cetirizine 10 mg Tablet 10 mg PO DAILY PRN (Reason: Allergy Symptoms) omeprazole 20 mg Capsule,Delayed Release(Dr/Ec) 20 mg PO DAILY lisinopril 10 mg Tablet 40 mg PO DAILY Qty: 90 4RF isosorbide mononitrate 30 mg tablet extended release 24 hr 30 mg PO DAILY Qty: 90 4RF amlodipine 10 mg tablet See Rx Instructions .ROUTE .COMPLEX Qty: 90 0RF Dose Instruction: Take 1 tablet by mouth once daily Rx Instructions: Take 1 tablet by mouth once daily metoprolol succinate 25 mg tablet extended release 24 hr 25 mg PO BID 90 Days Qty: 180 0RF Changed hydralazine 100 mg tablet 50 mg PO Q8H Qty: 1 0RF Rx Instructions: Change to 50mg dose for now Discharge Orders: Discharge Order (Routine); Ordered 05/30/24 Ordered By: Sean Abdul Other Ambulatory Orders: DME: Walter (Order) Location: None Selected Ordered By: Lawson Diaz Referrals: [facility] - [Outside] [facility] [place] Joellen Hill FNP [Primary Care Provider] - 06/04/24 1:00 pm Patient Instructions: Ciprofloxacin (By mouth), Dialysis Diet (DC), Acute Wound Care (DC), Peritonitis (GEN), Hemodialysis (DC), Opioid Safety, Post Anesthesia Care Activity Restrictions/Additional Instructions: Follow-up with your primary doctor for reassessment after peritonitis. Continue hemodialysis. Follow-up with nephrology. Follow-up with your primary doctor and nephrology also for assessment of anemia. Have your primary doctor reassess your potassium after initially potassium was found to be low in the hospital. Follow-up with your primary doctor for further control of diabetes, congestive heart failure, and other chronic medical problems including hypertension. Continue to monitor your blood pressure 3 times daily, safe values to bring to your appointment. For now your hydralazine dose is continued at 50 mg 3 times daily, but if your blood pressure consistently is increased above 150/90 please resume your prior dose of 100 mg 3 times daily in addition to lisinopril and metoprolol. Discharge Attestations Time Spent in Discharge Care*: greater than 30 min Quality Metrics Clinical Quality Measures [ No reported AMI, CVA or VTE this stay] Coding Level of Care Code 12852 Total time (in minutes) for Discharge: 45 Diagnoses ESRD (end stage renal disease) on dialysis N18.6; Z99.2
[2024-05-30] MEDS: heparin, porcine 1,000 unit/mL INJ 10 mL 1000 UNIT IV (12:49)
[2024-05-30] MEDS: heparin, porcine 1,000 unit/mL INJ 10 mL 10000 UNIT INTRACATH (12:49)
--- NOTE | 2024-05-30 13:05 | P.PN_ITS ---
Subjective 2 Subjective: getting hD Medications: Reviewed: Yes Vitals/I&O/Wt Last Vital Signs Temp 98.1 F 05/30/24 09:26 Pulse 79 05/30/24 12:31 Resp 16 05/30/24 12:31 BP 169/88 05/30/24 12:31 Pulse Ox 96 05/30/24 08:00 O2 Del Method Room Air 05/30/24 08:00 05/29/24 05/30/24 05/30/24 22:59 06:59 14:59 Intake Total 240 / 240 120 / 360 120 / 120 Output Total 200 / 200 Balance 240 / 240 -80 / 160 120 / 120 Weight last 48 hrs Weight 92.351 kg Weight 92.351 kg Weight 92.306 kg Weight 92.306 kg Weight 90.4 kg Physical Exam 2 Narrative: No apparent respiratory distress. Vital signs noted. Afebrile. HEENT normocephalic/atraumatic. Neck is supple Right anterior chest wall permacath is clean and dry. Lungs are clear to auscultation bilaterally. Heart is regular. Abdomen is soft distended poor bowel sounds, diffuse mild tenderness by her Tenckhoff catheter. Extremities no significant edema. Neuro awake alert oriented x 3. Data 05/30/24 04:34 05/30/24 04:34 Micro: Microbiology 05/24/24 19:40 E. coli Shiga-like Toxin (PCR) - Final Stool Salmonella/Shigella Culture - Final Campylobacter (PCR) - Final 05/27/24 09:27 Catheter Tip Culture - Final Other Source 05/26/24 11:57 Gram Stain - Final Peritoneal Fluid Body Fluid Culture - Final A&P Assessment and plan (1) ESRD (end stage renal disease) on dialysis: 53-year-old lady diabetes hypertension CHF end-stage renal disease. Patient was being transitioned to peritoneal dialysis unfortunately PD catheter has not been working well. Patient now here with abdominal tenderness and she had a leukocytosis. 1. ID : - UTI- broad-spectrum antibiotics. -Concern for peritoniits and PD catheter removal - Need to be concerned about a possible fungal infection or tuberculosis or other causes of a sterile peritonitis. 2. Anemia -hemoglobin improved to 8.1 Ferritin 769 iron saturation 11.9% she is likely iron deficient and has a high ferritin from infection. Continue Epogen. Monitor hemoglobin. 3. ESRD -she is status post hemodialysis on 06/24 -HD today 4. Blood pressure is now stable. Patient was seen and examined using A/V equipment with the aid of a nurse. The patient consented to telehealth. Plan Antibiotics and remove PD catheter. Attestations 2 Medical Necessity Statement*: per shona Coding Level of Care Code Acute Code for Chg Fwd Diagnoses ESRD (end stage renal disease) on dialysis N18.6; Z99.2
--- NOTE | 2024-05-30 14:14 | PM.MISC ---
Miscellaneous Note Purpose of Documentation: Chart reveiwed, care plan discussed with primary team. Doing well overall, no new complaints. Recommend discharge on Ciprofloxacin for 7 days from PD cathetre removal
[2024-05-31 14:06] LABS: Amylase, Peritoneal Fluid <10 U/L
== END 2024-05-30 14:42 | disposition home or self-care (01) | DRG 853 ==
LOC: ER 19:12 → MEDSURG 20:23
PROVIDERS: Internal Medicine Nephrology; Student in an Organized Health Care Education/Training Program; Surgery; Admitting Provider Student in an Organized Health Care Education/Training Program; Emergency Provider Emergency Medicine; PCP Registered Nurse; Visit Provider Internal Medicine
PROC: 0WPG03Z Removal of Infusion Device from Peritoneal Cavity, Open Approach (ICD-10-PCS; principal; 2024-05-27 09:00)
DX: A41.9 Sepsis, unspecified organism (principal); N18.6 End stage renal disease; N30.00 Acute cystitis without hematuria; T85.71XA Infection and inflammatory reaction due to peritoneal dialysis catheter, initial encounter; I13.2 Hypertensive heart and chronic kidney disease with heart failure and with stage 5 chronic kidney disease, or end stage renal disease; Y82.8 Other medical devices associated with adverse incidents; E11.22 Type 2 diabetes mellitus with diabetic chronic kidney disease; E11.65 Type 2 diabetes mellitus with hyperglycemia; I50.9 Heart failure, unspecified; F43.12 Post-traumatic stress disorder, chronic; D63.1 Anemia in chronic kidney disease; E87.6 Hypokalemia; E83.42 Hypomagnesemia; Z91.81 History of falling; Z99.2 Dependence on renal dialysis; Z79.4 Long term (current) use of insulin; Z87.440 Personal history of urinary (tract) infections
CPT/HCPCS: 36415; 36416; 36430; 71045; 74176; 80048; 80053; 80061; 80202; 80503; 81003; 81015; 82042; 82150; 82274; 82607; 82728; 82746; 82962; 83036; 83540; 83550; 83605; 83615; 83630; 83735; 83986; 84100; 84145; 84157; 84315; 84443; 85007; 85025; 86706; 86803; 86850; 86900; 86920; 87040; 87045; 87070; 87075; 87086; 87177; 87205; 87209; 87340; 87426; 87427; 87449; 87493; 87641; 89050; 90935; 93005; 94664; 96372; 96374; 99285; J0696; J1644; J1756; J1815; J2185; J2270; J2405; J2543; J2704; J3010; J3370; J3475; J3490; J7050; P9016; Q3014; Q4081

== ENCOUNTER → 2024-06-07 08:49 | Outpatient (BNVA) | payer MEDICARE, MEDICAID, SELFPAY | PROVIDERS: PCP Registered Nurse; Visit Provider Registered Nurse | DX: Z99.2 Dependence on renal dialysis (principal); N18.6 End stage renal disease; D63.1 Anemia in chronic kidney disease; E11.65 Type 2 diabetes mellitus with hyperglycemia | CPT/HCPCS: 81000; 83550; 85025; 87086 ==

== ENCOUNTER → 2024-07-03 09:51 | Outpatient (BNVA) | payer MEDICARE, MEDICAID, SELFPAY | PROVIDERS: PCP Registered Nurse; Visit Provider Internal Medicine | DX: E11.65 Type 2 diabetes mellitus with hyperglycemia (principal); E78.5 Hyperlipidemia, unspecified; E11.319 Type 2 diabetes mellitus with unspecified diabetic retinopathy without macular edema | CPT/HCPCS: 99214 ==

== ENCOUNTER → 2024-09-12 07:34 | Outpatient (BNVA) | payer MEDICARE, OTHER, SELFPAY | PROVIDERS: PCP Registered Nurse; Visit Provider Podiatrist Foot & Ankle Surgery | DX: B35.1 Tinea unguium; E11.40 Type 2 diabetes mellitus with diabetic neuropathy, unspecified; Z79.4 Long term (current) use of insulin; G62.9 Polyneuropathy, unspecified; I73.9 Peripheral vascular disease, unspecified; S99.912A Unspecified injury of left ankle, initial encounter; X50.9XXA Other and unspecified overexertion or strenuous movements or postures, initial encounter | CPT/HCPCS: 99213 ==

== ENCOUNTER 2024-09-20 11:00 | Outpatient (CLI) | payer MEDICARE, MEDICAID, SELFPAY ==
--- NOTE | 2024-09-20 11:00 | MM_ITS ---
WS: [id number] BILATERAL SCREENING DIGITAL TOMOSYNTHESIS MAMMOGRAM WITH CAD HISTORY: Z12.31 - Encounter for screening mammogram for malignant ... COMPARISON: 06/03/2022 Bilateral CC and MLO views with tomosynthesis and synthetic mammography submitted. Computer aided det ection analyzed. Breast composition: There are scattered areas of fibroglandular density. No suspicious masses, microc alcifications or architectural distortion. Trabecular thickening throughout each breast is new since the prior study. This is probably related to CHF or mild edema. There is no focal mass. No calcificat ion. Dialysis catheter also projects over a portion of the RIGHT breast. MM/MM scr BI tomosynthesis [id number] IMPRESSION: BI-RADS: 2 - Benign. FOLLOW UP: 1 Year Follow-up
== END 2024-09-20 11:10 | disposition home or self-care (01) ==
PROVIDERS: PCP Registered Nurse; Visit Provider Registered Nurse
DX: Z12.31 Encounter for screening mammogram for malignant neoplasm of breast (principal); R92.323 Mammographic fibroglandular density, bilateral breasts; N64.89 Other specified disorders of breast
CPT/HCPCS: 77063; 77067

== ENCOUNTER → 2024-10-03 10:31 | Outpatient (BNVA) | payer MEDICARE, MEDICAID, SELFPAY | PROVIDERS: PCP Registered Nurse; Visit Provider Podiatrist Foot & Ankle Surgery | DX: M25.572 Pain in left ankle and joints of left foot (principal); B35.1 Tinea unguium; E11.40 Type 2 diabetes mellitus with diabetic neuropathy, unspecified; Z79.4 Long term (current) use of insulin; G62.9 Polyneuropathy, unspecified; I73.9 Peripheral vascular disease, unspecified; S99.912A Unspecified injury of left ankle, initial encounter; X50.9XXA Other and unspecified overexertion or strenuous movements or postures, initial encounter | CPT/HCPCS: 73610 ==

== ENCOUNTER 2024-10-03 11:15 | Outpatient (CLI) | payer MEDICARE, MEDICAID, SELFPAY | END 2024-10-03 11:16 | disposition home or self-care (01) | LOC: SPT 11:16 | PROVIDERS: PCP Registered Nurse; Visit Provider Podiatrist Foot & Ankle Surgery | DX: Z46.89 Encounter for fitting and adjustment of other specified devices (principal); M25.572 Pain in left ankle and joints of left foot | CPT/HCPCS: 97760; L1902 ==

== ENCOUNTER → 2024-10-08 11:14 | Outpatient (BNVA) | payer MEDICARE, MEDICAID, SELFPAY | PROVIDERS: PCP Registered Nurse; Visit Provider Internal Medicine | DX: E11.65 Type 2 diabetes mellitus with hyperglycemia (principal); E78.5 Hyperlipidemia, unspecified; E11.319 Type 2 diabetes mellitus with unspecified diabetic retinopathy without macular edema; Z79.4 Long term (current) use of insulin | CPT/HCPCS: 99214 ==

== ENCOUNTER → 2024-10-18 10:06 | Outpatient (BNVA) | payer MEDICARE, MEDICAID, SELFPAY | PROVIDERS: PCP Registered Nurse; Visit Provider Podiatrist Foot & Ankle Surgery | DX: S99.912A Unspecified injury of left ankle, initial encounter; W18.42XA Slipping, tripping and stumbling without falling due to stepping into hole or opening, initial encounter; B35.1 Tinea unguium; E11.40 Type 2 diabetes mellitus with diabetic neuropathy, unspecified; Z79.4 Long term (current) use of insulin; G62.9 Polyneuropathy, unspecified; I73.9 Peripheral vascular disease, unspecified | CPT/HCPCS: 73610; 99213 ==

== ENCOUNTER → 2024-11-06 13:05 | Outpatient (BNVA) | payer MEDICARE, MEDICAID, SELFPAY | PROVIDERS: PCP Registered Nurse; Referring Provider Registered Nurse; Visit Provider Surgery | DX: N18.6 End stage renal disease (principal); Z99.2 Dependence on renal dialysis | CPT/HCPCS: 99213 ==

== ENCOUNTER → 2024-11-20 11:28 | Outpatient (BNVA) | payer MEDICARE, MEDICAID, SELFPAY | PROVIDERS: PCP Registered Nurse; Visit Provider Surgery | DX: N18.6 End stage renal disease (principal); Z99.2 Dependence on renal dialysis | CPT/HCPCS: 36590; 99213 ==

== ENCOUNTER 2024-12-07 05:41 | Inpatient (IN) | payer MEDICARE, MEDICAID, SELFPAY ==
[2024-12-07] VITALS (29 sets, daily range): BP systolic 137–177; BP diastolic 70–90; PULSE 71–86; RESP 10–23; TEMP 36.1–36.7; O2SAT 90–97; BMI 34.4; BMI 33.9
--- NOTE | 2024-12-07 05:50 | XRR_ITS ---
PROCEDURE INFORMATION: Exam: XR Chest Exam date and time: 12/07/2024 6:05 AM Age: 54 years old Clinical indication: Cough and dyspnea; Additional info: Dyspnea/cough TECHNIQUE: Imaging protocol: Radiologic exam of the chest. Views: 1 view. COMPARISON: CR XR chest 1V portable [id number] 05/23/2024 5:44 PM FINDINGS: Tubes, catheters and devices: Interval removal of right catheter from prior comparative study. Lungs: Basilar infiltrates likely abrasives sales representative of atelectasis. Pleural spaces: Bilateral pleural effusions, [id number]-left. Heart/Mediastinum: Cardiomegaly. Bones/joints: Unremarkable. XR/XR chest 1V portable [id number] IMPRESSION: [id number]-[id number]-ekic-left pleural effusions with associated basilar atelectasis. Difficult to exclude superimposed infection, CHF, renal failure. Correlate clinically.
--- NOTE | 2024-12-07 05:50 | W.ED.SOB ---
HPI - SOB/Dyspnea General: Chief Complaint: Shortness of Breath/Dyspnea Stated Complaint: SOB Time Seen by Provider: 12/07/24 05:44 History of Present Illness: HPI Narrative: 54-year-old female presents to the emergency room with complaints of shortness of breath. Patient is mildly conversationally dyspneic and is noted to have orthopnea during the course of the exhale. She states she has been short of breath for the last several days. She denies fever has not had a productive cough. Patient is diabetic. In the past she has been treated for asthma but nothing recently. Patient does have end-stage renal disease previously was on hemodialysis recently had a tunneled dialysis catheter removed and is currently getting peritoneal dialysis. She does still make some urine. No history of PEs no history of hemoptysis. Patient an echocardiogram in May 2024 that showed essentially normal ejection fraction and wall motion , she was noted to have mild aortic stenosis at the time with a aortic valve area of 0.87 she also had some mild mitral regurgitation. Associated symptoms: Reports orthopnea; Deny abdominal pain, chest pain or fever(s) Related Data Home Medications ?Medication ?Instructions ?Recorded ?Confirmed omeprazole 20 mg capsule,delayed 20 mg PO DAILY 04/06/24 12/07/24 release cetirizine 10 mg tablet 10 mg PO DAILY PRN Allergy Symptoms 05/23/24 12/07/24 calcitriol 0.25 mcg capsule 0.25 mcg PO DAILY 10/30/24 12/07/24 vit B,C-folic ac 800 mcg-zinc 12.5 1 tab PO DAILY 10/30/24 12/07/24 mg-selen-D3 2,000 unit-vit E tablet (RenaPlex-D) amlodipine 10 mg tablet 10 mg PO DAILY 12/07/24 12/07/24 sevelamer carbonate 800 mg tablet 800 mg PO TID 12/07/24 12/07/24 torsemide 100 mg tablet 100 mg PO DAILY 12/07/24 12/07/24 Previous Rx's ?Medication ?Instructions ?Recorded isosorbide mononitrate 30 mg 30 mg PO DAILY #90 tabs 04/09/24 tablet,extended release 24 hr duloxetine 60 mg capsule,delayed 60 mg PO DAILY #90 caps 09/18/24 release (Cymbalta) atorvastatin 40 mg tablet 40 mg PO DAILY #90 tabs 10/08/24 insulin regular hum U-500 conc 500 See Rx Instructions .Route 10/08/24 unit/mL(3 mL) subcut pen (Humulin .COMPLEX #48 mL R U-500 (Conc) Insulin Kwikpen) carvedilol 12.5 mg tablet 12.5 mg PO BID 90 days #180 tabs 10/30/24 hydralazine 50 mg tablet 50 mg PO TID 90 days #270 tabs 10/30/24 lisinopril 40 mg tablet 40 mg PO DAILY #90 tabs 10/30/24 Allergies Allergy/AdvReac Type Severity Reaction Status Date / Time venom-honey bee Allergy Severe ALGY-Redness Verified 12/07/24 11:34 of Skin marijuana (cannabis) Allergy Intermediate ADR-Nausea Verified 12/07/24 11:34 codeine AdvReac Severe ADR-Vomitin Verified 12/07/24 11:34 g morphine AdvReac Severe ADR-Vomitin Verified 12/07/24 11:34 g propoxyphene (From AdvReac Severe ADR-Vomitin Verified 12/07/24 11:34 Darvocet-N) g latex AdvReac Intermediate ALGY-Rash Verified 12/07/24 11:34 Review of Systems Const: Denies: fever(s) or chills Card: Reports: edema, swelling of feet/ankles, dyspnea on exertion and orthopnea; Denies: chest pain Resp: Denies: dyspnea GI: Denies: abdominal pain : Denies: dysuria, urinary frequency or urinary urgency Musc: Denies: neck pain or back pain Skin/Breast: Denies: rash PFSH ED PFSH: Medical History PAD (peripheral artery disease) Essential hypertension Peritoneal dialysis catheter in place Uncontrolled type 2 diabetes mellitus Pleural effusion Anemia of chronic disease ESRD (end stage renal disease) Diabetic neuropathy, type II diabetes mellitus Diabetic retinopathy Bereavement Major depressive disorder, recurrent, in partial remission Psychiatric care FH: total knee replacement left HLA B27 (HLA B27 positive) High risk medication use Inflammatory arthritis Seronegative spondyloarthropathy Chronic insomnia See subjective note below. Chronic pain See subjective note below. Chronic post-traumatic stress disorder (PTSD) Generalized anxiety disorder Major depressive disorder, recurrent, moderate Surgical History History of cataract extraction History of hysterectomy for benign disease History of tonsillectomy History of appendectomy History of left knee replacement Family History Mother Hypertension Diabetes Psychiatric illness Thyroid disease Father , in his 50's Family history of premature coronary artery disease Hyperlipidemia Myocardial infarction Brother Hypertension Sister No problems noted. Denies family history of Rheumatoid arthritis Lupus Social History Smoking and tobacco/nicotine status: unknown if used tobacco/nicotine Second hand smoke exposure: No Alcohol intake: never Substance/Drug Use: never Adopted: No Caregiver/support person: No Lives independently: No Household members: family service: No Current occupational status: unemployed and disabled Sexually active: Yes Do you think of yourself as: Straight/Heterosexual Current gender identity: Female Physical Exam Const: COMMON NORMALS: no acute distress GENERAL APPEARANCE: cooperative and comfortable ORIENTATION/CONSCIOUSNESS: Yes awake, Yes oriented to person, Yes oriented to place and Yes oriented to time HENMT: COMMON NORMALS: normocephalic, atraumatic and hearing grossly normal bilaterally HEAD & SCALP: normocephalic and atraumatic Resp: COMMON NORMALS: normal respiratory effort, No retractions, No use of accessory muscles and clear to auscultation bilaterally AUSCULTATION: clear to auscultation bilaterally Cardio: COMMON NORMALS: regular rate, regular rhythm and No murmurs present (Cardio) RATE: regular rate RHYTHM: regular rhythm GI: COMMON NORMALS: Soft to palpation and No hepatosplenomegaly present AUSCULTATION: Yes normoactive bowel sounds PALPATION: Yes Soft to palpation, No Tenderness to palpation present (GI), No Guarding due to palpation present (GI) and Yes No hepatosplenomegaly present Extremity: COMMON NORMALS: normal to inspection, capillary refill normal, no clubbing, cyanosis or edema, no calf tenderness and no pedal edema Neuro: SENSORIUM/ORIENTATION: Yes oriented to person, Yes oriented to place and Yes oriented to time Skin: COMMON NORMALS: no rashes or lesions noted GENERAL SKIN EXAM: no rashes or lesions noted Course Vital Signs: Vital signs: Vital Signs Temperature 98.1 F 12/07/24 15:24 Pulse Rate 79 12/07/24 15:24 Respiratory Rate 18 12/07/24 15:24 Blood Pressure 177/84 12/07/24 15:24 Pulse Oximetry 93 12/07/24 14:50 Oxygen Delivery Me thod Nasal Cannula 12/07/24 13:43 Oxygen Flow Rate 3 12/07/24 13:43 MDM - SOB/Dyspnea Medical Decision Making Decompensated heart failure with significant worsening of her renal function. He believes she is failing peritoneal dialysis will probably need to transition back to hemodialysis will consult nephrology. Radiology consult for ultrasound-guided thoracentesis which did improve her symptoms post thoracentesis x-ray does not show any pneumothorax. Surgery consulted for placement of tunneled dialysis catheter. Will admit. Medical Records CONCLUSIONS LV systolic function is normal with EF of 60-65% Echogenic structure seen in right atrium. Differentials include catheter tip versus mass. Mild mitral regurgitation Mild aortic stenosis Mild tricuspid regurgitation. Cornell Cisneros MD (Electronically Signed) Final Date: 30 May 2024 Lab Data 12/07/24 06:16 12/07/24 06:16 Labs/Radiology: Radiology Impressions Chest CTA 12/07/24 06:42 IMPRESSION: 1. No pulmonary embolism. 2. No RIGHT heart strain. 3. Moderate to large bilateral nonloculated pleural effusions. 4. Moderate diffuse pulmonary edema. 5. Mild LEFT heart enlargement. Thoracentesis Ultrasound 12/07/24 07:58 IMPRESSION: Uncomplicated ultrasound-guided thoracentesis. Chest X-Ray 12/07/24 12:56 IMPRESSION: 1. Right-sided double-lumen catheter extending into the RIGHT atrium. 2. Infiltrate in the upper and lower lobes of the LEFT lung. 3. Consolidation and atelectasis in the RIGHT lower lobe unchanged. Laboratory Results WBC 9.81 10^3/uL (3.29-11.43) 12/07/24 06:16 RBC 3.43 10^6/uL (3.85-5.65) L 12/07/24 06:16 Hgb 9.70 g/dL (11.27-16.99) L 12/07/24 06:16 Hct 29.6 % (36-47) L 12/07/24 06:16 MCV 86.3 fl (85-98) 12/07/24 06:16 MCH 28.3 pg (27-33) 12/07/24 06:16 MCHC 32.8 g/dL (30-55) 12/07/24 06:16 RDW 14.1 % (12.1-15.1) 12/07/24 06:16 Plt Count 416 10^3/cmm (157-399) H 12/07/24 06:16 MPV 9.6 fL (7.4-10.4) 12/07/24 06:16 Neut % (Auto) 74.1 % 12/07/24 06:16 Lymph % (Auto) 16.1 % 12/07/24 06:16 [place] % (Auto) 6.2 % 12/07/24 06:16 Eos % (Auto) 2.5 % 12/07/24 06:16 Baso % (Auto) 0.6 % 12/07/24 06:16 Neut # (Auto) 7.26 10^3/uL (1.8-7.7) 12/07/24 06:16 Lymph # (Auto) 1.6 10^3/uL (0.8-4.8) 12/07/24 06:16 [place] # (Auto) 0.6 10^3/uL (0.2-0.9) 12/07/24 06:16 Eos # (Auto) 0.3 10^3/uL (0.0-0.8) 12/07/24 06:16 Baso # (Auto) 0.1 10^3/uL (0.0-0.1) 12/07/24 06:16 Nucleated RBC % (auto) 0 % 12/07/24 06:16 Nucleated RBCs # 0.0 /100WBC 12/07/24 06:16 PT 13.80 SECONDS (12.1-14.9) 12/07/24 06:16 INR 0.99 (0.8-1.2) 12/07/24 06:16 APTT 40.6 SECONDS (23.9-36.7) H 12/07/24 06:16 Sodium 138 mmol/L (136-145) 12/07/24 06:16 Potassium 3.5 mmol/L (3.5-5.1) 12/07/24 06:16 Chloride 97 mmol/L (98-107) L 12/07/24 06:16 Carbon Dioxide 20 mmol/L (22-29) L 12/07/24 06:16 Anion Gap 24.5 (5-19) H 12/07/24 06:16 BUN 70 mg/dL (6-20) H 12/07/24 06:16 Creatinine 10.0 mg/dL (0.5-0.9) H* 12/07/24 06:16 GFR Calculation 4.1 mL/min (90-130) L 12/07/24 06:16 Glucose 151 mg/dL (65-115) H 12/07/24 06:16 Calculated Osmolality 309 mOsm/kg (285-295) H 12/07/24 06:16 Lactic Acid 0.5 mmol/L (0.5-2.2) 12/07/24 06:16 Calcium 9.1 mg/dL (8.5-10.5) 12/07/24 06:16 Total Bilirubin 0.4 mg/dL (0.15-1.2) 12/07/24 06:16 AST 14 U/L (0-32) 12/07/24 06:16 ALT 10 U/L (0-33) 12/07/24 06:16 Alkaline Phosphatase 98 U/L (35-105) 12/07/24 06:16 Troponin T Baseline 177 ng/L (0-10) H* 12/07/24 06:16 Troponin T 120 Minute 168.2 ng/L (0-10) H 12/07/24 08:01 Delta Troponin T -8.8 ABS# (0-10) L 12/07/24 08:01 NT-Pro-B Natriuret Pep 22823 pg/mL (0-125) H 12/07/24 06:16 Total Protein 7.3 g/dL (6.6-8.7) 12/07/24 06:16 Albumin 3.4 g/dL (3.5-5.2) L 12/07/24 06:16 Globulin 3.9 g/dL (1.3-4.6) 12/07/24 06:16 Procalcitonin 0.18 ng/mL (0-0.5) 12/07/24 06:16 Urine Color Yellow (Yellow) 12/07/24 09:25 Urine Appearance Cloudy (CLEAR) A 12/07/24 09:25 Urine pH 6.0 (5-7) 12/07/24 09:25 Ur Specific [place] 1.013 (1.005-1.030) 12/07/24 09:25 Urine Protein 3+ (Negative) A 12/07/24 09:25 Urine Glucose (UA) Trace (Normal) H 12/07/24 09:25 Urine Ketones Negative (Negative) 12/07/24 09:25 Urine Blood 1+ (Negative) A 12/07/24 09:25 Urine Nitrate Negative (Negative) 12/07/24 09:25 Urine Bilirubin Negative (Negative) 12/07/24 09:25 Urine Urobilinogen 0.2 mg/dL (Negative) 12/07/24 09:25 Ur Leukocyte Esterase 3+ (Negative) A 12/07/24 09:25 Urine RBC 0-4 /hpf (0-2) H 12/07/24 09:25 Urine WBC 25-40 /hpf (0-5) H 12/07/24 09:25 Ur Squamous Epith Cells 5-10 /hpf (0-5) H 12/07/24 09:25 Amorphous Sediment Not Reportable 12/07/24 09:25 Urine Bacteria 2+ /hpf (NONE) H 12/07/24 09:25 Hyaline Casts 0-4 /lpf H 12/07/24 09:25 Hep Bs Antigen Non-reactive (Nonreactive) 12/07/24 06:16 Influenza A (PCR) Negative (Negative) 12/07/24 06:17 Influenza Type B (PCR) Negative (Negative) 12/07/24 06:17 RSV (PCR) Negative (Negative) 12/07/24 06:17 SARS-CoV-2 (PCR) Negative (Negative) 12/07/24 06:17 All radiology interpretation(s) finalized by discharge Discharge Plan Discharge Patient Disposition: Admitted As Inpatient Admit Provider: Sean Abdul Clinical Impression: Uncontrolled type 2 diabetes mellitus, ESRD (end stage renal disease) on dialysis, CHF (congestive heart failure), Anemia, Acute cystitis, Peritoneal dialysis catheter in place Condition: Stable Coding Level of Care Code ED Senior Solutions Engineer for Leanna Lester
--- NOTE | 2024-12-07 06:00 | ECG_ITS ---
[facility] Test Date: 2024-12-07 Pat Name: Lizy Evans Department: Room: Gender: Female Activated Sludge Attendant: : 1970 Requested By: Peng Jamil Order Number: [id number] Reading MD: CHACORTA DICKENS Measurements Intervals [place] Rate: 75 P: 22 RI: 146 QRS: -45 QRSD: 89 T: 38 QT: 403 QTc: 451 Interpretive Statements SINUS RHYTHM LOW QRS VOLTAGE IN PRECORDIAL LEADS [QRS DEFLECTION < 1.0 mV IN CHEST LEADS] PATTERN CONSISTENT WITH PULMONARY DISEASE LEFT ANTERIOR FASCICULAR BLOCK [QRS AXIS <= -45, QR IN I, RS IN II] SEPTAL MYOCARDIAL INFARCTION , OF INDETERMINATE AGE [40+ ms Q WAVE IN V1/V2] Compared to ECG 05/29/2024 12:33:54 No significant changes Electronically Signed On 12-11-2024 23:44:48 CONSOLE ASSEMBLER by CHACORTA DICKENS [id number]
--- NOTE | 2024-12-07 06:42 | CT_ITS ---
WS: [id number] CT CHEST ANGIOGRAPHY WITH REFORMATS HISTORY: Shortness of breath right pleural effusion tachypnea TECHNIQUE: Contiguous axial images are obtained through the chest during arterial injection of intravenous contrast. Images are reconstructed to evaluate the pulmonary arteries. MIP imaging also reviewed. All CT scans at [facility] use at least one of these dose optimization techniques: automated exposure control; mA and/or kV adjustment per patient size (includes targeted exams where dose is matched to clinical indication); or iterative reconstruction. CONTRAST: Omnipaque 350; 100 mL IV. DLP: 368.17 mGy COMPARISON: 04/06/2024 Adequate central opacification of the pulmonary arteries. No central pulmonary embolism. Opacification of the arteries adequate through the lobar and portions of the subsegmental branches. No pulmonary embolism identified. Pulmonary artery size is normal. No RIGHT heart strain. Mild LEFT heart enlargement. Moderate atherosclerosis thoracic aorta. Moderate to large bilateral pleural effusions are layering posteriorly and no loculations. Hazy opacification consistent with edema throughout the lung that is not compressed by the effusion. Compressive atelectasis at the lung bases. No pneumothorax. Mediastinal and hilar lymph nodes are small. No adenopathy identified. Super renal abdominal aortic calcifications. Dense calcifications in the splenic artery. Adrenal glands are negative. No destructive bone lesions. CT/CT angio chest PE protcl [id number] IMPRESSION: 1. No pulmonary embolism. 2. No RIGHT heart strain. 3. Moderate to large bilateral nonloculated pleural effusions. 4. Moderate diffuse pulmonary edema. 5. Mild LEFT heart enlargement.
[2024-12-07 06:45] LABS: Basophils # 0.1 10^3/uL (0.0-0.1); Basophils % 0.6 %; Eosinophils # 0.3 10^3/uL (0.0-0.8); Eosinophils % 2.5 %; Hematocrit 29.6 % (36-47); Lymphocytes # 1.6 10^3/uL (0.8-4.8); Lymphocytes % 16.1 %; Mean Corpuscular HGB Conc 32.8 g/dL (30-55); Mean Corpuscular Hemoglobin 28.3 pg (27-33); Mean Corpuscular Volume 86.3 fl (85-98); Mean Platelet Volume 9.6 fL (7.4-10.4); Monocytes # 0.6 10^3/uL (0.2-0.9); Monocytes % 6.2 %; Neutrophils # 7.26 10^3/uL (1.8-7.7); Neutrophils % 74.1 %; Nucleated Red Blood Cells % 0 %; Platelet Count 416 10^3/cmm (157-399); Red Blood Count 3.43 10^6/uL (3.85-5.65); Red Cell Distribution Width 14.1 % (12.1-15.1); White Blood Count 9.81 10^3/uL (3.29-11.43)
[2024-12-07 07:15] LABS: Lactic Sepsis W/Reflex 0.5 mmol/L (0.5-2.2); NT Pro B Type Natriuretic Pept 26563 pg/mL (0-125); Procalcitonin 0.18 ng/mL (0-0.5)
[2024-12-07 07:19] LABS: Influenza A NEGATIVE (Negative); Influenza B NEGATIVE (Negative); Respiratory Syncytial Virus Ce NEGATIVE (Negative); SARS-CoV-2 PCR NEGATIVE (Negative)
--- NOTE | 2024-12-07 07:19 | PC.PHAR ---
patient has a new rx for carvedilol 25 mg BID waiting at the pharmacy to be picked up, its not in the position of the patient and she says she didnt know of the change so i will leave it off the list for now
[2024-12-07 07:26] LABS: Alanine Aminotransferase 10 U/L (0-33); Albumin Level 3.4 g/dL (3.5-5.2); Alkaline Phosphatase 98 U/L (35-105); Anion Gap 24.5 (5-19); Aspartate Amino Transferase 14 U/L (0-32); Blood Urea Nitrogen 70 mg/dL (6-20); Calcium 9.1 mg/dL (8.5-10.5); Carbon Dioxide 20 mmol/L (22-29); Chloride 97 mmol/L (98-107); Creatinine Clr Calc Pharmacy 7.0347; Globulin 3.9 g/dL (1.3-4.6); Glomerular Filtration Rate 4.1 mL/min (90-130); Glucose 151 mg/dL (65-115); Osmolality Calculated 309 mOsm/kg (285-295); Potassium 3.5 mmol/L (3.5-5.1); Sodium 138 mmol/L (136-145); Total Bilirubin 0.4 mg/dL (0.15-1.2); Total Protein 7.3 g/dL (6.6-8.7)
[2024-12-07] MEDS: iohexol 350 mg/mL 500 mL Btl (per mL) IV (07:51)
--- NOTE | 2024-12-07 07:58 | ECG_ITS ---
[facility] Test Date: 2024-12-07 Pat Name: Lizy Evans Department: Room: Gender: Female Nutritional Services Host: : 1970 Requested By: Peng Jamil Order Number: [id number] Reading MD: CHACORTA DICKENS Measurements Intervals [place] Rate: 77 P: 29 ME: 153 QRS: -56 QRSD: 82 T: 40 QT: 381 QTc: 433 Interpretive Statements SINUS RHYTHM LOW QRS VOLTAGE IN PRECORDIAL LEADS [QRS DEFLECTION < 1.0 mV IN CHEST LEADS] LEFT ANTERIOR FASCICULAR BLOCK [QRS AXIS <= -45, QR IN I, RS IN II] ANTEROSEPTAL MYOCARDIAL INFARCTION , OF INDETERMINATE AGE [40+ ms Q WAVE IN V1-V4] Compared to ECG 12/07/2024 06:00:01 No significant changes Electronically Signed On 12-11-2024 23:44:40 PIECE MAKER by CHACORTA DICKENS [id number]
--- NOTE | 2024-12-07 07:58 | US_ITS ---
WS: [id number] ULTRASOUND-GUIDED THORACENTESIS CLINICAL INFORMATION: Bilateral pleural effusions PROCEDURE: Informed consent: The risks, benefits, and alternatives of the procedure were discussed with the patient. Verbal and written consent was obtained. Timeout: A timeout was performed to confirm the correct patient, procedure, and site. Site: RIGHT chest Preparation: A suitable skin site was identified. The patient was prepped and draped in usual sterile fashion. Lidocaine 1% was used for local anesthesia. Catheter: 4 [place] One-Step catheter. Fluid Volume: 1000 ml Color: Clear yellow Complications: None. / thoracentesis [id number] IMPRESSION: Uncomplicated ultrasound-guided thoracentesis.
[2024-12-07 08:09] LABS: INR 0.99 (0.8-1.2)
[2024-12-07 08:10] LABS: Partial Thromboplastin Time 40.6 SECONDS (23.9-36.7)
[2024-12-07] MEDS: FUROsemide 10 mg/mL SDV 10mL 80 MG IVP (08:28)
[2024-12-07 08:29] LABS: Troponin(5th) Baseline 177 ng/L (0-10)
[2024-12-07 08:35] LABS: Troponin 5 2HR Delta -8.8 ABS# (0-10)
[2024-12-07 08:36] LABS: Troponin 5 2HR 168.2 ng/L (0-10)
[2024-12-07 09:45] LABS: Bilirubin Urine Negative (Negative); Blood Urine 1+ (Negative); Glucose Urine UA Trace (Normal); Ketones Urine Negative (Negative); Leukocyte Esterase Urine 3+ (Negative); Nitrate Urine Negative (Negative); Protein Urine 3+ (Negative); Specific Gravity, Urine 1.013 (1.005-1.030); Urine Appearance Cloudy (CLEAR); Urine Color Yellow (Yellow); Urobilinogen Urine 0.2 mg/dL (Negative)
--- NOTE | 2024-12-07 09:51 | ECG_ITS ---
[facility]: 2024-12-07 Pat Name: Lizy Evans Department: Room: Gender: Female Rn Clinical Documentation: : 1970 Requested By: Peng Jamil Order Number: [id number] Reading MD: CHACORTA DICKENS Measurements Intervals [place] Rate: 75 P: 34 FL: 151 QRS: -63 QRSD: 78 T: 32 QT: 419 QTc: 469 Interpretive Statements SINUS RHYTHM POSSIBLE LEFT ATRIAL ENLARGEMENT [-0.1mV P-WAVE IN V1/V2] LEFT AXIS DEVIATION [QRS AXIS < -30] LOW QRS VOLTAGE [QRS DEFLECTION < 0.5/1.0 mV IN LIMB/CHEST LEADS] ANTEROSEPTAL MYOCARDIAL INFARCTION , OF INDETERMINATE AGE [40+ ms Q WAVE IN V1-V4] Compared to ECG 12/07/2024 07:58:00 Left-axis deviation now present Left anterior fascicular block no longer present Myocardial infarct finding still present Electronically Signed On 12-11-2024 23:53:49 POWDER GUARD by CHACORTA DICKENS [email or web address] [id number]
--- NOTE | 2024-12-07 10:01 | PM.CONSULT ---
Providers/Reason For Consult Consulting Physician/Specialty*: General Surgery Reason for Consult*: Need for dialysis catheter Primary Care Provider: SEGUN Mulligan History of Present Illness History of Present Illness Lizy Evans is a 54 year old female who has end-stage renal disease on peritoneal dialysis. She recently had her tunneled dialysis catheter removed. Now presents with fluid overload elevated creatinine. I have been consulted for replacement of dialysis catheter. Patient will receive hemodialysis during the hospital stay and may require hemodialysis in the long-term. Review of Systems General: Reports: 10 or more systems reviewed and unremarkable except in HPI and below Medications/Allergies Home Medications ?Medication ?Instructions ?Recorded ?Confirmed ?Last Taken ?Type omeprazole 20 mg capsule,delayed 20 mg PO DAILY 04/06/24 12/07/24 Unknown History release isosorbide mononitrate 30 mg 30 mg PO DAILY #90 tabs 04/09/24 12/07/24 12/07/24 Rx tablet,extended release 24 hr cetirizine 10 mg tablet 10 mg PO DAILY PRN Allergy Symptoms 05/23/24 12/07/24 Unknown History duloxetine 60 mg capsule,delayed 60 mg PO DAILY #90 caps 09/18/24 12/07/24 12/07/24 Rx release (Cymbalta) atorvastatin 40 mg tablet 40 mg PO DAILY #90 tabs 10/08/24 12/07/24 12/07/24 Rx insulin regular hum U-500 conc 500 See Rx Instructions .Route 10/08/24 12/07/24 Unknown Rx unit/mL(3 mL) subcut pen (Humulin .COMPLEX #48 mL R U-500 (Conc) Insulin Kwikpen) calcitriol 0.25 mcg capsule 0.25 mcg PO DAILY 10/30/24 12/07/24 12/07/24 History carvedilol 12.5 mg tablet 12.5 mg PO BID 90 days #180 tabs 10/30/24 12/07/24 12/07/24 Rx hydralazine 50 mg tablet 50 mg PO TID 90 days #270 tabs 10/30/24 12/07/24 12/07/24 Rx lisinopril 40 mg tablet 40 mg PO DAILY #90 tabs 10/30/24 12/07/24 12/07/24 Rx vit B,C-folic ac 800 mcg-zinc 12.5 1 tab PO DAILY 10/30/24 12/07/24 12/07/24 History mg-selen-D3 2,000 unit-vit E tablet (RenaPlex-D) amlodipine 10 mg tablet 10 mg PO DAILY 12/07/24 12/07/24 12/07/24 History sevelamer carbonate 800 mg tablet 800 mg PO TID 12/07/24 12/07/24 Unknown History torsemide 100 mg tablet 100 mg PO DAILY 12/07/24 12/07/24 Unknown History Allergies Allergy/AdvReac Type Severity Reaction Status Date / Time venom-honey bee Allergy Severe ALGY-Redness Verified 11/06/24 13:09 of Skin marijuana (cannabis) Allergy Intermediate ADR-Nausea Verified 11/06/24 13:09 codeine AdvReac Severe ADR-Vomitin Verified 11/06/24 13:09 g morphine AdvReac Severe ADR-Vomitin Verified 11/06/24 13:09 g propoxyphene (From AdvReac Severe ADR-Vomitin Verified 11/06/24 13:09 Darvocet-N) g latex AdvReac Intermediate ALGY-Rash Verified 11/06/24 13:09 PFSH Acute PFSH: Medical History PAD (peripheral artery disease) Essential hypertension Peritoneal dialysis catheter in place Uncontrolled type 2 diabetes mellitus Pleural effusion Anemia of chronic disease ESRD (end stage renal disease) Diabetic neuropathy, type II diabetes mellitus Diabetic retinopathy Bereavement Major depressive disorder, recurrent, in partial remission Psychiatric care FH: total knee replacement left HLA B27 (HLA B27 positive) High risk medication use Inflammatory arthritis Seronegative spondyloarthropathy Chronic insomnia See subjective note below. Chronic pain See subjective note below. Chronic post-traumatic stress disorder (PTSD) Generalized anxiety disorder Major depressive disorder, recurrent, moderate Surgical History History of cataract extraction History of hysterectomy for benign disease History of tonsillectomy History of appendectomy History of left knee replacement Family History Mother Hypertension Diabetes Psychiatric illness Thyroid disease Father , in his 50's Family history of premature coronary artery disease Hyperlipidemia Myocardial infarction Brother Hypertension Sister No problems noted. Denies family history of Rheumatoid arthritis Lupus Social History Smoking and tobacco/nicotine status: unknown if used tobacco/nicotine Second hand smoke exposure: No Alcohol intake: never Substance/Drug Use: never Adopted: No Caregiver/support person: No Lives independently: No Household members: family service: No Current occupational status: unemployed and disabled Sexually active: Yes Do you think of yourself as: Straight/Heterosexual Current gender identity: Female Vitals/I&O/Wt Last Vital Signs Temp 97.6 F 12/07/24 05:46 Pulse 86 12/07/24 08:29 Resp 23 H 12/07/24 08:29 BP 155/76 12/07/24 08:29 Pulse Ox 96 12/07/24 08:29 O2 Del Method Nasal Cannula 12/07/24 08:29 12/06/24 12/07/24 12/07/24 22:59 06:59 14:59 Intake Total 0 / 0 Balance 0 / 0 Weight last 48 hrs Weight 201 lb Physical Exam Narrative: General : Patient is well developed , no acute distress, oriented x3 Head : Normal cephalic, a-traumatic. Nose : Mucous membranes are without erythema. Lungs : Equal chest rise bilaterally, no use of accessory muscles, trachea is midline. CV : Rate and rhythm are normal. Abdomen : Soft, ND, NT, no g/r/m Extremities : No edema. Upper extremities are normal bilaterally. Back : non-tender to palpation, no CVA tenderness. Data 12/07/24 06:16 12/07/24 06:16 Micro: Microbiology 12/07/24 07:33 Blood Culture - Preliminary Blood SPECIMEN COLLECTED A&P Assessment and plan (1) Stage 4 chronic kidney disease due to type 2 diabetes mellitus: (2) ESRD (end stage renal disease) on dialysis: Plan After complete history physical examination revealed available clinical data I have decided to offer the patient abdominal dialysis catheter placement. While we are not sure patient will require long-term hemodialysis, the likelihood of this happening is high as she has been previously on hemodialysis and appears to have failed peritoneal dialysis. I have offered to replace the tunneled dialysis catheter I have discussed all recent benefits of the procedure including the risk of pneumothorax requiring chest tube placement, need for additional interventions, catheter normal function or malfunction requiring replacement of the catheter and need for additional interventions. She shows understanding agrees with the plan. If in the long-term patient is able to return to peritoneal dialysis we can eventually remove the catheter as outpatient once we have verified that she is tolerating the peritoneal dialysis with no problems PDMP PDMP Reviewed: Not Reviewed Coding Level of Care Code Acute Code for Chg Fwd Diagnoses Stage 4 chronic kidney disease due to type 2 diabetes mellitus E11.22; N18.4 ESRD (end stage renal disease) on dialysis N18.6; Z99.2
[2024-12-07 10:15] LABS: Add Urine Microscopic? YES; Bacteria Urine 2+ /hpf; Hyaline Casts Urine 0-4 /lpf; RBC Urine 0-4 /hpf (0-2); UA Manual Slide Review YES; UA Slide Review UA Slide Review Perf; WBC Urine 25-40 /hpf (0-5)
[2024-12-07 10:16] LABS: Add Urine Culture? Yes
--- NOTE | 2024-12-07 11:00 | ANES.PREANE2 ---
Pre-Anesthetic Assessment Height/Weight: Height 1.63 m Weight 91.172 kg Temp Pulse Resp BP Pulse Ox O2 Del Method 97.6 F 74 23 H 144/74 97 Nasal Cannula 12/07/24 05:46 12/07/24 10:18 12/07/24 08:29 12/07/24 10:18 12/07/24 10:18 12/07/24 10:18 Operation Date: 12/07/24 12:00 Proposed Procedures p Dialysis Catheter Insertion(Not Applicable) - Brady Magana MD Familial anesthetic complications: PONV Last intake: > 8 hrs Exam alert, oriented x 3, clear to auscultation bilaterally and regular rate & rhythm S/p thoracentesis for pleural effusion Airway Dentition: chipped Pulmonary pleural effusion s/p thoracentesis, pulm edema CV/HEM Congestive Heart Failure Metabolic Diabetes Mellitus and Hyperlipidemia Anesthetic Plan ASA status: 4E Anesthesia: MAC Risk of > 500 ml blood loss (7ml/kg in children): No Other Pertinent Information Will use minimal sedation, discussed expected intraop awareness with patient Medications/Allergies Home Medications ?Medication ?Instructions ?Recorded ?Confirmed ?Last Taken ?Type omeprazole 20 mg capsule,delayed 20 mg PO DAILY 04/06/24 12/07/24 Unknown History release isosorbide mononitrate 30 mg 30 mg PO DAILY #90 tabs 04/09/24 12/07/24 12/07/24 Rx tablet,extended release 24 hr cetirizine 10 mg tablet 10 mg PO DAILY PRN Allergy Symptoms 05/23/24 12/07/24 Unknown History duloxetine 60 mg capsule,delayed 60 mg PO DAILY #90 caps 09/18/24 12/07/24 12/07/24 Rx release (Cymbalta) atorvastatin 40 mg tablet 40 mg PO DAILY #90 tabs 10/08/24 12/07/24 12/07/24 Rx insulin regular hum U-500 conc 500 See Rx Instructions .Route 10/08/24 12/07/24 Unknown Rx unit/mL(3 mL) subcut pen (Humulin .COMPLEX #48 mL R U-500 (Conc) Insulin Kwikpen) calcitriol 0.25 mcg capsule 0.25 mcg PO DAILY 10/30/24 12/07/24 12/07/24 History carvedilol 12.5 mg tablet 12.5 mg PO BID 90 days #180 tabs 10/30/24 12/07/24 12/07/24 Rx hydralazine 50 mg tablet 50 mg PO TID 90 days #270 tabs 10/30/24 12/07/24 12/07/24 Rx lisinopril 40 mg tablet 40 mg PO DAILY #90 tabs 10/30/24 12/07/24 12/07/24 Rx vit B,C-folic ac 800 mcg-zinc 12.5 1 tab PO DAILY 10/30/24 12/07/24 12/07/24 History mg-selen-D3 2,000 unit-vit E tablet (RenaPlex-D) amlodipine 10 mg tablet 10 mg PO DAILY 12/07/24 12/07/24 12/07/24 History sevelamer carbonate 800 mg tablet 800 mg PO TID 12/07/24 12/07/24 Unknown History torsemide 100 mg tablet 100 mg PO DAILY 12/07/24 12/07/24 Unknown History Allergies Allergy/AdvReac Type Severity Reaction Status Date / Time venom-honey bee Allergy Severe ALGY-Redness Verified 11/06/24 13:09 of Skin marijuana (cannabis) Allergy Intermediate ADR-Nausea Verified 11/06/24 13:09 codeine AdvReac Severe ADR-Vomitin Verified 11/06/24 13:09 g morphine AdvReac Severe ADR-Vomitin Verified 11/06/24 13:09 g propoxyphene (From AdvReac Severe ADR-Vomitin Verified 11/06/24 13:09 Darvocet-N) g latex AdvReac Intermediate ALGY-Rash Verified 11/06/24 13:09 [facility] Anesthesia Medical History PAD (peripheral artery disease) Essential hypertension Peritoneal dialysis catheter in place Uncontrolled type 2 diabetes mellitus Pleural effusion Anemia of chronic disease ESRD (end stage renal disease) Diabetic neuropathy, type II diabetes mellitus Diabetic retinopathy Bereavement Major depressive disorder, recurrent, in partial remission Psychiatric care FH: total knee replacement left HLA B27 (HLA B27 positive) High risk medication use Inflammatory arthritis Seronegative spondyloarthropathy Chronic insomnia See subjective note below. Chronic pain See subjective note below. Chronic post-traumatic stress disorder (PTSD) Generalized anxiety disorder Major depressive disorder, recurrent, moderate Surgical History History of cataract extraction History of hysterectomy for benign disease History of tonsillectomy History of appendectomy History of left knee replacement Family History Mother Hypertension Diabetes Psychiatric illness Thyroid disease Father , in his 50's Family history of premature coronary artery disease Hyperlipidemia Myocardial infarction Brother Hypertension Sister No problems noted. Denies family history of Rheumatoid arthritis Lupus Social History Smoking and tobacco/nicotine status: unknown if used tobacco/nicotine Second hand smoke exposure: No Alcohol intake: never Substance/Drug Use: never Adopted: No Caregiver/support person: No Lives independently: No Household members: family service: No Current occupational status: unemployed and disabled Sexually active: Yes Do you think of yourself as: Straight/Heterosexual Current gender identity: Female Data Anesthesia 12/07/24 06:16 12/07/24 06:16 Short CBC 12/07/24 Range/Units 06:16 WBC 9.81 (3.29-11.43) 10^3/uL Hgb 9.70 L (11.27-16.99) g/dL Hct 29.6 L (36-47) % MCV 86.3 (85-98) fl Plt Count 416 H (157-399) 10^3/cmm Neut % (Auto) 74.1 % Neut # (Auto) 7.26 (1.8-7.7) 10^3/uL BMP 12/07/24 06:16 Sodium 138 Potassium 3.5 Chloride 97 L Carbon Dioxide 20 L BUN 70 H Creatinine 10.0 H* Glucose 151 H Calcium 9.1 Cardiac Enzymes 12/07/24 12/07/24 Range/Units 06:16 08:01 Troponin T Baseline 177 H* (0-10) ng/L Troponin T 120 Minute 168.2 H (0-10) ng/L Delta Troponin T -8.8 L (0-10) ABS# NT-Pro-B Natriuret Pep [id number] H (0-125) pg/mL Liver Function 12/07/24 Range/Units 06:16 Total Bilirubin 0.4 (0.15-1.2) mg/dL AST 14 (0-32) U/L ALT 10 (0-33) U/L Alkaline Phosphatase 98 (35-105) U/L Albumin 3.4 L (3.5-5.2) g/dL Urine 12/07/24 Range/Units 09:25 Urine Color Yellow (Yellow) Urine Appearance Cloudy A (CLEAR) Urine pH 6.0 (5-7) Ur Specific [place] 1.013 (1.005-1.030) Urine Protein 3+ A (Negative) Urine Glucose (UA) Trace H (Normal) Urine Ketones Negative (Negative) Urine Nitrate Negative (Negative) Urine Bilirubin Negative (Negative) Ur Leukocyte Esterase 3+ A (Negative) Urine RBC 0-4 H (0-2) /hpf Urine WBC 25-40 H (0-5) /hpf COVID Results 12/07/24 06:17 SARS-CoV-2 (PCR) Negative Coags 12/07/24 06:16 PT 13.80 INR 0.99 APTT 40.6 H Microbiology 12/07/24 07:33 Blood Culture - Preliminary Blood SPECIMEN COLLECTED Cardiac Studies: Echocardiogram 05/17/24
--- NOTE | 2024-12-07 11:19 | PC.NURSE ---
surgery team took pt @1120, belongings sent with pt.
--- NOTE | 2024-12-07 11:42 | XR_ITS ---
WS: [id number] CHEST XRAY TECHNIQUE: Portable chest. CLINICAL INFORMATION: Post thoracentesis COMPARISON: 12/07/2024 FINDINGS: Heart: Cardiomegaly. Lungs: Improved RIGHT pleural effusion status post thoracentesis. Persistent compressive atelectasis in the RIGHT lower lobe. Stable small to moderate LEFT pleural effusion with LEFT basilar atelectasis. Bones: Osteopenia. XR/XR chest 1V portable [id number] IMPRESSION: 1. Improved RIGHT pleural effusion status post thoracentesis. 2. No pneumothorax. 3. Persistent compressive atelectasis RIGHT lower lobe.
[2024-12-07 11:48] LABS: Glucose Point of Care 162 mg/dL (70-110)
[2024-12-07] MEDS: sodium chloride 0.9% 1,000 ML 30 ML IV (11:48)
[2024-12-07] MEDS: ceFAZolin 2,000 mg SDV 2000 MG IVP (12:02)
[2024-12-07] MEDS: lidocaine-epi 1% 20 mL INJ INJECTION (12:23)
[2024-12-07] MEDS: heparin, porcine 1,000 unit/mL INJ 10 mL 10000 UNIT XX (12:31)
--- NOTE | 2024-12-07 12:56 | XR_ITS ---
WS: [id number] Exam: XR chest 1V portable [id number] Date/Time of Exam: 12/07/2024 1:12 PM Reason For Exam: In pacu for tunneled catheter placement Comparison 12/07/2024. A RIGHT subclavian double-lumen dialysis catheter is in place extending into the RIGHT atrium. Heart size within normal limits. Consolidation atelectasis in the RIGHT lower lobe unchanged. There is also infiltrate in the upper and lower lobes of the LEFT lung. The mediastinum is normal in contour. No pneumothorax. Bony structures are intact. XR/XR chest 1V portable [id number] IMPRESSION: 1. Right-sided double-lumen catheter extending into the RIGHT atrium. 2. Infiltrate in the upper and lower lobes of the LEFT lung. 3. Consolidation and atelectasis in the RIGHT lower lobe unchanged.
--- NOTE | 2024-12-07 12:58 | PM.OP ---
Operative Report Date of procedure: December 07, 2024 Pre-op diagnosis: End-stage renal disease Post-op diagnosis: Same Post-op findings: Normal vascular anatomy in the right IJ Procedure done: Insertion of tunneled dialysis catheter Implants: 23 cm cuff to the abdominal dialysis catheter Surgeon: Brady Magana MD Refinery Operator Light Ends Recovery: MAN OR Staff Estimated blood loss: 10 Brief History: 54-year-old female with end-stage renal disease who has been receiving dialysis through peritoneal dialysis catheter, noted to have fluid overload and elevated creatinine consistent with failure of peritoneal dialysis. She will require hemodialysis. Procedure: Patient was brought into the OR, she was placed in a supine position, moderate anesthesia sedation was given. Timeout was conducted after the skin was prepped and draped in the usual sterile fashion. I then proceeded to identify the right IJ vein with ultrasound, I infiltrated local anesthesia on top of the vein. I then proceeded to cannulate the vein under direct ultrasound guidance using an 18-gauge needle, the needle tip was seen entering the vein and immediate return of blood was noted. A wire was advanced through the needle and the needle was removed. The position of the wire was verified with ultrasound and fluoroscopy. The wire was then fixed to the drapes. I then placed my attention to the chest, local anesthesia was infiltrated in the previously marked area on the chest and then a tract connecting the chest to the wire insertion site in the neck. I then proceeded to make a 0.5cm incision on the chest and a 0.5cm incision on the neck at the level of the wire insertion site. I then yunneled the catheter from the chest wound to the neck using the provider tunneler. the vein was then dilatated with serial sizes of dilatators under direct fluoro guidance. I then proceeded to insert an introducer with a peel-off sheath over the wire under direct fluoroscopic guidance. I then remove the wire and the introducer leaving the peel-off sheath in place. The catheter was then advanced through the peel-off sheath and the peel-off sheath was removed leaving the catheter in place. Fluoroscopy showed evidence of good catheter position. The catheter was tested and was working fine with good flow in both lumens. I then proceeded to fix the catheter with #2-0 nylon to the skin. I then closed the neck wound with #3-0 Vicryl. The catheter was tested once again and was working fine I then Locked the catheter. Dermabond was applied over the wound and a sterile dressing was applied on top. At the end of the procedure all counts were correct, the patient tolerated well the procedure was transferred to the PACU in stable condition.
--- NOTE | 2024-12-07 13:08 | SC_ITS ---
WS: [id number] INTRAOPERATIVE TECHNIQUE: 2 Spot fluoroscopic images for intraoperative purposes. FLUOROSCOPY TIME: 45.1 seconds CLINICAL INFORMATION: OR PICS FINDINGS: RIGHT dual-lumen central venous catheter with tips in the RIGHT atrium SC/C-arm FL for CVA [id number] IMPRESSION: Images obtained for intraoperative purposes.
--- NOTE | 2024-12-07 13:18 | PM.HP ---
Providers/Chief Complaint Admitting Physician: Sean Abdul Primary Care Provider: SEGUN Mulligan Chief Complaint: SOB History of Present Illness 54 LAD with history of ESRD, previously on hemodialysis via tunneled cath, had initiated peritoneal dialysis, and has been performing a daily over the last several weeks. She states has not missed any dialysis sessions. Presented with fatigue, fluid overload, with finding of new moderate pleural effusions, peripheral edema, hypoxia, new oxygen requirement of 5 L. Troponin elevation 177. Denies abdominal pain, denies any GI symptoms, denies any cloudy dialysate. Review of Systems Const: Reports: fatigue; Denies: fever(s), chills, body aches or malaise ENMT: Denies: throat pain Card: Reports: edema; Denies: chest pain, pre-syncope or dyspnea on exertion Resp: Denies: dyspnea, productive cough, change in phlegm color or hemoptysis GI: Denies: abdominal pain, nausea, vomiting, diarrhea, constipation, hematochezia or melena : Denies: flank pain, urinary frequency or hematuria Musc: Denies: back pain, joint swelling or joint redness Skin/Breast: Denies: rash or new lesions Neuro: Denies: headache(s) or confusion Medications/Allergies Home Medications ?Medication ?Instructions ?Recorded ?Confirmed ?Last Taken ?Type omeprazole 20 mg capsule,delayed 20 mg PO DAILY 04/06/24 12/07/24 Unknown History release isosorbide mononitrate 30 mg 30 mg PO DAILY #90 tabs 04/09/24 12/07/24 12/07/24 Rx tablet,extended release 24 hr cetirizine 10 mg tablet 10 mg PO DAILY PRN Allergy Symptoms 05/23/24 12/07/24 Unknown History duloxetine 60 mg capsule,delayed 60 mg PO DAILY #90 caps 09/18/24 12/07/24 12/07/24 Rx release (Cymbalta) atorvastatin 40 mg tablet 40 mg PO DAILY #90 tabs 10/08/24 12/07/24 12/07/24 Rx insulin regular hum U-500 conc 500 See Rx Instructions .Route 10/08/24 12/07/24 Unknown Rx unit/mL(3 mL) subcut pen (Humulin .COMPLEX #48 mL R U-500 (Conc) Insulin Kwikpen) calcitriol 0.25 mcg capsule 0.25 mcg PO DAILY 10/30/24 12/07/24 12/07/24 History carvedilol 12.5 mg tablet 12.5 mg PO BID 90 days #180 tabs 10/30/24 12/07/24 12/07/24 Rx hydralazine 50 mg tablet 50 mg PO TID 90 days #270 tabs 10/30/24 12/07/24 12/07/24 Rx lisinopril 40 mg tablet 40 mg PO DAILY #90 tabs 10/30/24 12/07/24 12/07/24 Rx vit B,C-folic ac 800 mcg-zinc 12.5 1 tab PO DAILY 10/30/24 12/07/24 12/07/24 History mg-selen-D3 2,000 unit-vit E tablet (RenaPlex-D) amlodipine 10 mg tablet 10 mg PO DAILY 12/07/24 12/07/24 12/07/24 History sevelamer carbonate 800 mg tablet 800 mg PO TID 12/07/24 12/07/24 Unknown History torsemide 100 mg tablet 100 mg PO DAILY 12/07/24 12/07/24 Unknown History Allergies Allergy/AdvReac Type Severity Reaction Status Date / Time venom-honey bee Allergy Severe ALGY-Redness Verified 12/07/24 11:34 of Skin marijuana (cannabis) Allergy Intermediate ADR-Nausea Verified 12/07/24 11:34 codeine AdvReac Severe ADR-Vomitin Verified 12/07/24 11:34 g morphine AdvReac Severe ADR-Vomitin Verified 12/07/24 11:34 g propoxyphene (From AdvReac Severe ADR-Vomitin Verified 12/07/24 11:34 Darvocet-N) g latex AdvReac Intermediate ALGY-Rash Verified 12/07/24 11:34 PFSH Acute PFSH: Medical History PAD (peripheral artery disease) Essential hypertension Peritoneal dialysis catheter in place Uncontrolled type 2 diabetes mellitus Pleural effusion Anemia of chronic disease ESRD (end stage renal disease) Diabetic neuropathy, type II diabetes mellitus Diabetic retinopathy Bereavement Major depressive disorder, recurrent, in partial remission Psychiatric care FH: total knee replacement left HLA B27 (HLA B27 positive) High risk medication use Inflammatory arthritis Seronegative spondyloarthropathy Chronic insomnia See subjective note below. Chronic pain See subjective note below. Chronic post-traumatic stress disorder (PTSD) Generalized anxiety disorder Major depressive disorder, recurrent, moderate Surgical History History of cataract extraction History of hysterectomy for benign disease History of tonsillectomy History of appendectomy History of left knee replacement Family History Mother Hypertension Diabetes Psychiatric illness Thyroid disease Father , in his 50's Family history of premature coronary artery disease Hyperlipidemia Myocardial infarction Brother Hypertension Sister No problems noted. Denies family history of Rheumatoid arthritis Lupus Social History Smoking and tobacco/nicotine status: unknown if used tobacco/nicotine Second hand smoke exposure: No Alcohol intake: never Substance/Drug Use: never Adopted: No Caregiver/support person: No Lives independently: No Household members: family service: No Current occupational status: unemployed and disabled Sexually active: Yes Do you think of yourself as: Straight/Heterosexual Current gender identity: Female Vitals/I&O/Wt Last Vital Signs Temp 97.7 F 12/07/24 13:12 Pulse 73 12/07/24 13:12 Resp 10 L 12/07/24 13:12 BP 137/72 12/07/24 13:12 Pulse Ox 90 12/07/24 13:12 O2 Del Method Nasal Cannula 12/07/24 13:12 O2 Flow Rate 3 12/07/24 13:15 12/06/24 12/07/24 12/07/24 22:59 06:59 14:59 Intake Total 0 / 0 500 / 500 Output Total 10 / 10 Balance 0 / 0 490 / 490 Weight last 48 hrs Weight 91.172 kg Physical Exam Const: COMMON NORMALS: patient oriented x3 and alert GENERAL APPEARANCE: cooperative ORIENTATION/CONSCIOUSNESS: Yes awake HENMT: COMMON NORMALS: oropharynx normal Neck/C-Spine: COMMON NORMALS: no JVD Resp: COMMON NORMALS: normal respiratory effort OTHER: Diminished at bases Cardio: COMMON NORMALS: no JVD, regular rhythm, S1 normal heart sound present, S2 normal heart sound present and No murmurs present (Cardio) RHYTHM: regular rhythm HEART SOUNDS: S1 normal heart sound present and S2 normal heart sound present GI: COMMON NORMALS: Normal to inspection, nondistended, normoactive bowel sounds present, Soft to palpation and non-tender PALPATION: Yes Soft to palpation Extremity: COMMON NORMALS: no joint enlargement GENERAL: Yes edema Neuro: COMMON NORMALS: patient oriented x3 and moves all extremities SENSORIUM/ORIENTATION: Yes alert Skin: COMMON NORMALS: no rashes or lesions noted GENERAL SKIN EXAM: no rashes or lesions noted Data 12/07/24 06:16 12/07/24 06:16 Micro: Microbiology 12/07/24 07:33 Blood Culture - Preliminary Blood SPECIMEN COLLECTED A&P Assessment and plan (1) ESRD (end stage renal disease) on dialysis: Worsening renal failure, inadequate peritoneal dialysis with anasarca, moderate pleural effusions, respiratory failure newly requiring 5 L of oxygen with shallow air entry, tachypnea. BUN noted up to 70, creatinine 10. Metabolic acidosis, anion gap 24.5. Bicarb 20. Additionally with demand cardiac ischemia, troponins 177. 2-hour troponin 168. With acute diastolic heart failure, NT proBNP 26,563. Reviewed vitals, CBC, INR, CMP, UA, influenza, COVID, RSV PCR, chest x-ray, CT, ER provider note, discussed with ER provider. She has also undergone thoracentesis, 1 L of fluid removed. Requesting analysis, culture. Appreciate nephrology consultation. Surgical consultation. Discussed with the surgeon, will be going for dialysis catheter placement. Pending further reassessment by nephrology to determine whether can still optimize peritoneal dialysis and resume this or whether it is not adequate for her needs. (2) Troponin level elevated: Moderate elevation of troponin, decompensated diastolic heart failure, likely demand ischemia secondary to severe fluid overload, failure of peritoneal dialysis, new respiratory failure, with new requirement of 3 L nasal cannula oxygen. Complete troponin EKG series. Reviewed prior echocardiogram. Monitor telemetry with risk of arrhythmia. I do not see a prior stress test, would benefit from stress test once able to obtain. Plan UTI: Noted 25.40 WBC in urine. 5-10 squamous epithelial cells. Urine cultures requested. Follow-up. Will give ceftriaxone. PAD DM2: Had sliding scale insulin. Consistent carb diet once resumed. Diabetic retinopathy MDD, FRANCK, PTSD Inflammatory arthritis Seronegative spondyloarthropathy Other medical problems. PDMP PDMP Reviewed: Not [facility] Admission over 2 midnights anticipated. Management of decompensated end-stage kidney disease with severe fluid overload, acute diastolic heart failure secondary to failure of peritoneal dialysis, need for initiation of hemodialysis, troponin elevation. Diagnoses ESRD (end stage renal disease) on dialysis N18.6; Z99.2 Troponin level elevated R79.89
--- NOTE | 2024-12-07 13:32 | PM.MISC ---
Miscellaneous Note Purpose of Documentation: update on care Note: CXR done and no evidence of pneumothorax. catheter iis ready to be used as needed
--- NOTE | 2024-12-07 13:40 | ANE.PACU2 ---
Inpatient post-anesthesia follow up: Airway intact: Yes Vital signs: Temperature 97.6 F Pulse Rate 81 Respiratory Rate 15 Blood Pressure 161/77 Pulse Oximetry 95 Oxygen Delivery Me thod Room Air Oxygen Flow Rate 2 Fraction of Inspir ed Oxygen Hydration adequate: Yes Nausea and vomiting: No Pain level: 1 Mental status: Baseline
--- NOTE | 2024-12-07 13:45 | PM.CONSULT ---
Providers/Reason For Consult Consulting Physician/Specialty*: kommana/Nephrology Reason for Consult*: ESRD Attending Physician: Sean Abdul Primary Care Provider: SEGUN Mulligan History of Present Illness History of Present Illness Lizy Evans is a 54 year old female Patient is a 54-year-old female with past medical history of end-stage renal disease on peritoneal dialysis for the last 2 months, but was on hemodialysis prior to that she presents to the emergency department due to shortness of breath lower extremity edema fatigue. Patient was noted to be hypoxic in the ED and was placed on 5 L O2. Troponin was slightly elevated. Patient also reported that she has not done PD for few days now. Initial lab data is reviewed. Noted creatinine of 10 hemoglobin of 9.7.Patient underwent right thoracentesis and [address] scan angio chest was done that showed no pulmonary embolism moderate to large bilateral pleural effusions, pulmonary edema. Review of Systems Narrative: Negative Medications/Allergies Home Medications ?Medication ?Instructions ?Recorded ?Confirmed ?Last Taken ?Type omeprazole 20 mg capsule,delayed 20 mg PO DAILY 04/06/24 12/07/24 Unknown History release isosorbide mononitrate 30 mg 30 mg PO DAILY #90 tabs 04/09/24 12/07/24 12/07/24 Rx tablet,extended release 24 hr cetirizine 10 mg tablet 10 mg PO DAILY PRN Allergy Symptoms 05/23/24 12/07/24 Unknown History duloxetine 60 mg capsule,delayed 60 mg PO DAILY #90 caps 09/18/24 12/07/24 12/07/24 Rx release (Cymbalta) atorvastatin 40 mg tablet 40 mg PO DAILY #90 tabs 10/08/24 12/07/24 12/07/24 Rx insulin regular hum U-500 conc 500 See Rx Instructions .Route 10/08/24 12/07/24 Unknown Rx unit/mL(3 mL) subcut pen (Humulin .COMPLEX #48 mL R U-500 (Conc) Insulin Kwikpen) calcitriol 0.25 mcg capsule 0.25 mcg PO DAILY 10/30/24 12/07/24 12/07/24 History carvedilol 12.5 mg tablet 12.5 mg PO BID 90 days #180 tabs 10/30/24 12/07/24 12/07/24 Rx hydralazine 50 mg tablet 50 mg PO TID 90 days #270 tabs 10/30/24 12/07/24 12/07/24 Rx lisinopril 40 mg tablet 40 mg PO DAILY #90 tabs 10/30/24 12/07/24 12/07/24 Rx vit B,C-folic ac 800 mcg-zinc 12.5 1 tab PO DAILY 10/30/24 12/07/24 12/07/24 History mg-selen-D3 2,000 unit-vit E tablet (RenaPlex-D) amlodipine 10 mg tablet 10 mg PO DAILY 12/07/24 12/07/24 12/07/24 History sevelamer carbonate 800 mg tablet 800 mg PO TID 12/07/24 12/07/24 Unknown History torsemide 100 mg tablet 100 mg PO DAILY 12/07/24 12/07/24 Unknown History Allergies Allergy/AdvReac Type Severity Reaction Status Date / Time venom-honey bee Allergy Severe ALGY-Redness Verified 12/07/24 11:34 of Skin marijuana (cannabis) Allergy Intermediate ADR-Nausea Verified 12/07/24 11:34 codeine AdvReac Severe ADR-Vomitin Verified 12/07/24 11:34 g morphine AdvReac Severe ADR-Vomitin Verified 12/07/24 11:34 g propoxyphene (From AdvReac Severe ADR-Vomitin Verified 12/07/24 11:34 Darvocet-N) g latex AdvReac Intermediate ALGY-Rash Verified 12/07/24 11:34 Current Medications Generic Name Dose Route Start Last Admin Trade Name Freq PRN Reason Stop Dose Admin Sodium Chloride 1,000 mls @ 30 mls/hr 12/07/24 11:45 12/07/24 13:31 Sodium Chloride 0.9% IV 12/08/24 11:44 Infused .Q24H ALMITA Infusion PFSH Acute PFSH: Medical History PAD (peripheral artery disease) Essential hypertension Peritoneal dialysis catheter in place Uncontrolled type 2 diabetes mellitus Pleural effusion Anemia of chronic disease ESRD (end stage renal disease) Diabetic neuropathy, type II diabetes mellitus Diabetic retinopathy Bereavement Major depressive disorder, recurrent, in partial remission Psychiatric care FH: total knee replacement left HLA B27 (HLA B27 positive) High risk medication use Inflammatory arthritis Seronegative spondyloarthropathy Chronic insomnia See subjective note below. Chronic pain See subjective note below. Chronic post-traumatic stress disorder (PTSD) Generalized anxiety disorder Major depressive disorder, recurrent, moderate Surgical History History of cataract extraction History of hysterectomy for benign disease History of tonsillectomy History of appendectomy History of left knee replacement Family History Mother Hypertension Diabetes Psychiatric illness Thyroid disease Father , in his 50's Family history of premature coronary artery disease Hyperlipidemia Myocardial infarction Brother Hypertension Sister No problems noted. Denies family history of Rheumatoid arthritis Lupus Social History Smoking and tobacco/nicotine status: unknown if used tobacco/nicotine Second hand smoke exposure: No Alcohol intake: never Substance/Drug Use: never Adopted: No Caregiver/support person: No Lives independently: No Household members: family service: No Current occupational status: unemployed and disabled Sexually active: Yes Do you think of yourself as: Straight/Heterosexual Current gender identity: Female Vitals/I&O/Wt Last Vital Signs Temp 97 F L 12/07/24 13:43 Pulse 72 12/07/24 13:43 Resp 18 12/07/24 13:43 BP 160/79 12/07/24 13:43 Pulse Ox 91 12/07/24 13:43 O2 Del Method Nasal Cannula 12/07/24 13:43 O2 Flow Rate 3 12/07/24 13:43 12/06/24 12/07/24 12/07/24 22:59 06:59 14:59 Intake Total 0 / 0 1000 / 1000 Output Total 10 / 10 Balance 0 / 0 990 / 990 Weight last 48 hrs Weight 91.172 kg Physical Exam Narrative: Patient is awake alert, PERRLA S1-S2 regular rate and rhythm per report Lungs with decreased breath sounds bilaterally per report Abdomen soft nontender Has pedal edema Data 12/07/24 06:16 12/07/24 06:16 Micro: Microbiology 12/07/24 07:33 Blood Culture - Preliminary Blood SPECIMEN COLLECTED A&P Assessment and plan (1) ESRD (end stage renal disease) on dialysis: 1. End-stage renal disease: Patient currently on peritoneal dialysis at home-cycler x 10 L, 2.5% and 1.5% dextrose solutions per patient. Currently she has presented with severe volume overload with bilateral pleural effusions and pulmonary edema and she is hypoxic. Patient would benefit from temporary hemodialysis and status post temporary HD catheter placement. Will plan on HD today and again tomorrow with ultrafiltration as tolerated Once patient's volume status optimized, plan to switch her back to PD prior to DC 2. Acute on chronic respiratory failure, has volume overload/pulmonary edema, HD as above 3. Anemia: Will order EPO 4. History of hypertension, resume home meds PDMP PDMP Reviewed: Not Reviewed Consult Attestations Medical Necessity Statement: Per medicine team Coding Level of Care Code Acute Code for Chg Fwd Diagnoses ESRD (end stage renal disease) on dialysis N18.6; Z99.2
[2024-12-07 14:34] LABS: Hepatitis B Surface Antigen Non-Reactive (Nonreactive)
--- NOTE | 2024-12-07 15:20 | PC.NURSE ---
received from pacu via stretcher at 1350.report received.pt is drowsy but easily awakened.oriented x 3.denies pain at present.sr on monitor.right upper chest with tunneled hemodialysis catheter...drsg is dry and intact.vss.To dialysis via bed at 1500.
[2024-12-07 15:42] LABS: Troponin 5 6HR 165.1 ng/L (0-10); Troponin 5 6HR Delta -11.9 ng/L (0-12)
[2024-12-07 17:55] LABS: Hepatitis B Surface AB > 1000.0 (11.5-1000)
--- NOTE | 2024-12-07 19:31 | PC.NURSE ---
return from dialysis at 1900.dialysis nurse reports 2.5 l fluid removed.pt tolerated well
[2024-12-07] MEDS: hyDRALAzine 50 mg Tablet PO (20:10)
[2024-12-07] MEDS: sevelamer 800 mg Tablet PO (20:11)
[2024-12-07] MEDS: aspirin 325 mg Tablet PO (20:11)
[2024-12-07] MEDS: cefTRIAXone 1,000 mg SDV 1000 MG IVP (20:11)
[2024-12-08] VITALS (39 sets, daily range): BP systolic 131–178; BP diastolic 73–88; PULSE 73–97; RESP 16–31; TEMP 36.6–37.7; O2SAT 92–97
[2024-12-08 03:02] LABS: Basophils # 0.1 10^3/uL (0.0-0.1); Basophils % 0.6 %; Eosinophils # 0.2 10^3/uL (0.0-0.8); Eosinophils % 2.7 %; Hematocrit 29.5 % (36-47); Lymphocytes # 1.6 10^3/uL (0.8-4.8); Lymphocytes % 18.9 %; Mean Corpuscular HGB Conc 31.9 g/dL (30-55); Mean Corpuscular Volume 87.8 fl (85-98); Mean Platelet Volume 9.5 fL (7.4-10.4); Monocytes # 0.6 10^3/uL (0.2-0.9); Monocytes % 6.5 %; Neutrophils # 5.95 10^3/uL (1.8-7.7); Neutrophils % 70.9 %; Nucleated Red Blood Cells % 0 %; Platelet Count 349 10^3/cmm (157-399); Red Blood Count 3.36 10^6/uL (3.85-5.65); Red Cell Distribution Width 14.3 % (12.1-15.1)
[2024-12-08 03:16] LABS: Anion Gap 17.4 (5-19); Blood Urea Nitrogen 33 mg/dL (6-20); Calcium 8.8 mg/dL (8.5-10.5); Carbon Dioxide 24 mmol/L (22-29); Chloride 102 mmol/L (98-107); Glomerular Filtration Rate 6.8 mL/min (90-130); Glucose 111 mg/dL (65-115); Osmolality Calculated 298 mOsm/kg (285-295); Phosphorus 4.4 mg/dL (2.5-4.5); Potassium 3.4 mmol/L (3.5-5.1); Sodium 140 mmol/L (136-145)
[2024-12-08 03:29] LABS: Creatinine Clr Calc Pharmacy 10.9618
[2024-12-08 06:35] LABS: Glucose Point of Care 131 mg/dL (70-110)
--- NOTE | 2024-12-08 07:45 | P.PN_ITS ---
Subjective 2 Subjective: Patient doing okay, was able to receive dialysis overnight with no issues. Vitals/I&O/Wt Last Vital Signs Temp 98.1 F 12/07/24 19:08 Pulse 97 12/08/24 04:00 Resp 31 H 12/08/24 04:00 BP 177/88 12/08/24 04:00 Pulse Ox 93 12/08/24 04:00 O2 Del Method Nasal Cannula 12/08/24 04:00 O2 Flow Rate 3 12/07/24 13:43 12/07/24 12/08/24 12/08/24 22:59 06:59 14:59 Intake Total 500 / 1500 300 / 1800 Output Total 2943 / 2953 1 2954 Balance -2443 / -1453 299 / -1154 Weight last 48 hrs Weight 190 lb 11.2 oz Weight 199 lb 15.348 oz Weight 197 lb 8 oz Weight 201 lb Physical Exam 2 Chest: OTHER: Right-sided permacath is in place, no evidence of infection working well. Data 12/08/24 02:35 12/08/24 02:35 Micro: Microbiology 12/07/24 07:33 Blood Culture - Preliminary Blood NEGATIVE TO DATE A&P Assessment and plan (1) ESRD (end stage renal disease) on dialysis: Plan I have discussed with the patient that at this point she will continue to receive hemodialysis as guided by nephrology, eventually she will be attempted to transition back to her peritoneal dialysis but if this fails she will need to keep her permacath until she gets a fistula. When she has permanent dialysis access I will be happy to remove her permacath in the office PDMP PDMP Reviewed: Not Reviewed Attestations 2 Medical Necessity Statement*: Per medical team Coding Level of Care Code Acute Code for Chg Fwd Diagnoses ESRD (end stage renal disease) on dialysis N18.6; Z99.2
[2024-12-08] MEDS: amlodipine 10 mg Tablet PO (08:59)
[2024-12-08] MEDS: aspirin 325 mg Tablet PO (08:59)
[2024-12-08] MEDS: isosorbide mononitrate ER 30 mg Tablet PO (08:59)
[2024-12-08] MEDS: sevelamer 800 mg Tablet PO ×3 (08:59→20:22)
[2024-12-08] MEDS: carvedilol 12.5 mg Tablet PO ×2 (08:59→16:53)
[2024-12-08] MEDS: lisinopril 20 mg Tablet 40 MG PO (08:59)
[2024-12-08] MEDS: duloxetine 60 mg Capsule PO (08:59)
[2024-12-08] MEDS: hyDRALAzine 50 mg Tablet PO ×3 (09:00→20:21)
[2024-12-08] MEDS: atorvastatin 40 mg Tablet PO (09:00)
--- NOTE | 2024-12-08 11:54 | PC.HD ---
Heparin 1000 units loading dose administered at 1142 via HD catheter per youth agent's orders.
--- NOTE | 2024-12-08 15:26 | P.PN_ITS ---
Subjective 2 Subjective: No acute interim events. Underwent hemodialysis today. Medications: Reviewed: Yes Vitals/I&O/Wt Last Vital Signs Temp 98.8 F 12/08/24 11:53 Pulse 77 12/08/24 11:53 Resp 18 12/08/24 11:53 BP 142/77 12/08/24 11:53 Pulse Ox 94 12/08/24 08:00 O2 Del Method Nasal Cannula 12/08/24 08:00 O2 Flow Rate 2 12/08/24 08:00 12/08/24 12/08/24 12/08/24 06:59 14:59 22:59 Intake Total 300 / 1800 Output Total 2953 Balance 299 / -1154 Weight last 48 hrs Weight 86.5 kg Weight 90.7 kg Weight 89.584 kg Weight 91.172 kg Physical Exam 2 Narrative: General: No acute distress, AO x3 HEENT: PERRLA, pupils bilaterally equal and reactive, pallors not present Chest: Normal vesicular breath sounds, no added sounds, equal good air entry bilaterally CVS: S1-S2 regular, no murmurs, no tachycardia, no gallops, no rubs Abdomen: Soft, nontender, no organomegaly, bowel sounds present Neuro: No focal deficits, no facial deformity, AO x3, power 5/5 in all limbs Data 12/08/24 02:35 12/08/24 02:35 Micro: Microbiology 12/07/24 09:25 Urine Culture - Preliminary Urine,Clean Catch Gram Negative Rods 12/07/24 07:33 Blood Culture - Preliminary Blood NEGATIVE TO DATE A&P Assessment and plan (1) ESRD (end stage renal disease) on dialysis: Worsening renal failure, inadequate peritoneal dialysis with anasarca, moderate pleural effusions, respiratory failure newly requiring 5 L of oxygen with shallow air entry, tachypnea. BUN noted up to 70, creatinine 10. Metabolic acidosis, anion gap 24.5. Bicarb 20. Additionally with demand cardiac ischemia, troponins 177. 2-hour troponin 168. With acute diastolic heart failure, NT proBNP 26,563. Reviewed vitals, CBC, INR, CMP, UA, influenza, COVID, RSV PCR, chest x-ray, CT, ER provider note, discussed with ER provider. She has also undergone thoracentesis, 1 L of fluid removed. Requesting analysis, culture. Appreciate nephrology consultation. Surgical consultation. Discussed with the surgeon, will be going for dialysis catheter placement. Pending further reassessment by nephrology to determine whether can still optimize peritoneal dialysis and resume this or whether it is not adequate for her needs. (2) Troponin level elevated: Moderate elevation of troponin, decompensated diastolic heart failure, likely demand ischemia secondary to severe fluid overload, failure of peritoneal dialysis, new respiratory failure, with new requirement of 3 L nasal cannula oxygen. Complete troponin EKG series. Reviewed prior echocardiogram. Monitor telemetry with risk of arrhythmia. I do not see a prior stress test, would benefit from stress test once able to obtain. Plan UTI: Noted 25.40 WBC in urine. 5-10 squamous epithelial cells. Urine cultures requested. Follow-up. Will give ceftriaxone. PAD DM2: Had sliding scale insulin. Consistent carb diet once resumed. Diabetic retinopathy MDD, FRANCK, PTSD Inflammatory arthritis Seronegative spondyloarthropathy Other medical problems. Doing well today December 08, 2024 Underwent hemodialysis today. No new complaints. Urine culture showing gram- negative rods. Continue ceftriaxone 1 g IV every 24 hours. PDMP PDMP Reviewed: Not Reviewed Attestations 2 Medical Necessity Statement*: Hemodialysis today. Urine culture with gram-negative rods, awaiting final identification. Coding Level of Care Code Acute Code for Chg Fwd Straight Forward/Low MDM includes number and complexity of problems actively addressed during encounter, amount and/or complexity of data reviewed/ordered and described risk of complication, morbidity or mortality of management as documented Diagnoses ESRD (end stage renal disease) on dialysis N18.6; Z99.2 Troponin level elevated R79.89
--- NOTE | 2024-12-08 16:26 | PC.HD ---
Towards end of dialysis, patient c/o being hot. BP dropped to 90s systolic. UF rate was lowered to 300 mL/hour hypotension dialysis orders. BP improved, patient asymptomatic. Unable to remove prescribed 3L; 2540 removed.
[2024-12-08 17:25] LABS: Glucose Point of Care 109 mg/dL (70-110)
--- NOTE | 2024-12-08 19:45 | P.PN_ITS ---
Subjective 2 Subjective: getting hD Medications: Reviewed: Yes Vitals/I&O/Wt Last Vital Signs Temp 98.6 F 12/08/24 16:24 Pulse 73 12/08/24 16:24 Resp 16 12/08/24 16:24 BP 133/74 12/08/24 16:24 Pulse Ox 92 12/08/24 16:00 O2 Del Method Room Air 12/08/24 16:00 O2 Flow Rate 2 12/08/24 08:00 12/08/24 12/08/24 12/08/24 06:59 14:59 22:59 Intake Total 300 / 1800 740 / 740 Output Total 2954 3040 / 3040 Balance 299 / -1154 -2300 / -2300 Weight last 48 hrs Weight 92 kg Weight 86.5 kg Weight 90.7 kg Weight 89.584 kg Weight 91.172 kg Physical Exam 2 Narrative: Patient is awake alert, PERRLA S1-S2 regular rate and rhythm per report Lungs with decreased breath sounds bilaterally per report Abdomen soft nontender Has pedal edema Data 12/08/24 02:35 12/08/24 02:35 Micro: Microbiology 12/08/24 16:17 Blood Culture - Preliminary Blood SPECIMEN COLLECTED 12/07/24 09:25 Urine Culture - Preliminary Urine,Clean Catch Gram Negative Rods 12/07/24 07:33 Blood Culture - Preliminary Blood NEGATIVE TO DATE A&P Assessment and plan (1) ESRD (end stage renal disease) on dialysis: 1. End-stage renal disease: Patient currently on peritoneal dialysis at home- cycler x 10 L, 2.5% and 1.5% dextrose solutions per patient. Currently she has presented with severe volume overload with bilateral pleural effusions and pulmonary edema and she is hypoxic. Patient would benefit from temporary hemodialysis and status post temporary HD catheter placement. HD yesterday and HD again today , with ultrafiltration as tolerated Once patient's volume status optimized, plan to switch her back to PD prior to DC 2. Acute on chronic respiratory failure, has volume overload/pulmonary edema, HD as above 3. Anemia: Will order EPO 4. History of hypertension, resume home meds PDMP PDMP Reviewed: Not Reviewed Attestations 2 Medical Necessity Statement*: per soumyams Coding Level of Care Code Acute Code for Chg Fwd Diagnoses ESRD (end stage renal disease) on dialysis N18.6; Z99.2
[2024-12-08] MEDS: cefTRIAXone 1,000 mg SDV 1000 MG IVP (20:21)
[2024-12-08 21:11] LABS: Glucose Point of Care 146 mg/dL (70-110)
[2024-12-08] MEDS: insulin lispro 100 unit/1 mL SUBCUT (21:40)
[2024-12-09] VITALS (26 sets, daily range): BP systolic 125–161; BP diastolic 66–80; PULSE 71–81; RESP 18–25; TEMP 36.6–37; O2SAT 96–98
[2024-12-09 02:55] LABS: Basophils # 0.1 10^3/uL (0.0-0.1); Basophils % 0.7 %; Eosinophils # 0.3 10^3/uL (0.0-0.8); Eosinophils % 3.4 %; Hematocrit 29.5 % (36-47); Lymphocytes # 2.4 10^3/uL (0.8-4.8); Mean Corpuscular HGB Conc 31.5 g/dL (30-55); Mean Corpuscular Hemoglobin 28.3 pg (27-33); Mean Corpuscular Volume 89.7 fl (85-98); Mean Platelet Volume 9.9 fL (7.4-10.4); Monocytes # 0.6 10^3/uL (0.2-0.9); Monocytes % 7.3 %; Neutrophils # 5.31 10^3/uL (1.8-7.7); Nucleated Red Blood Cells % 0 %; Platelet Count 314 10^3/cmm (157-399); Red Blood Count 3.29 10^6/uL (3.85-5.65); Red Cell Distribution Width 14.1 % (12.1-15.1); White Blood Count 8.71 10^3/uL (3.29-11.43)
[2024-12-09 03:17] LABS: Alanine Aminotransferase < 5 U/L (0-33); Albumin Level 2.9 g/dL (3.5-5.2); Alkaline Phosphatase 72 U/L (35-105); Anion Gap 14.4 (5-19); Aspartate Amino Transferase 13 U/L (0-32); Blood Urea Nitrogen 22 mg/dL (6-20); Calcium 8.7 mg/dL (8.5-10.5); Carbon Dioxide 28 mmol/L (22-29); Chloride 99 mmol/L (98-107); Globulin 3.5 g/dL (1.3-4.6); Glomerular Filtration Rate 9.9 mL/min (90-130); Glucose 107 mg/dL (65-115); Osmolality Calculated 290 mOsm/kg (285-295); Potassium 3.4 mmol/L (3.5-5.1); Sodium 138 mmol/L (136-145); Total Bilirubin 0.2 mg/dL (0.15-1.2); Total Protein 6.4 g/dL (6.6-8.7)
[2024-12-09 06:32] LABS: Glucose Point of Care 114 mg/dL (70-110)
[2024-12-09] MEDS: amlodipine 10 mg Tablet PO (08:38)
[2024-12-09] MEDS: sevelamer 800 mg Tablet PO ×3 (08:38→20:58)
[2024-12-09] MEDS: aspirin 325 mg Tablet PO (08:38)
[2024-12-09] MEDS: isosorbide mononitrate ER 30 mg Tablet PO (08:38)
[2024-12-09] MEDS: lisinopril 20 mg Tablet 40 MG PO (08:38)
[2024-12-09] MEDS: carvedilol 12.5 mg Tablet PO ×2 (08:39→17:44)
[2024-12-09] MEDS: hyDRALAzine 50 mg Tablet PO ×3 (08:39→20:58)
[2024-12-09] MEDS: duloxetine 60 mg Capsule PO (08:39)
[2024-12-09] MEDS: atorvastatin 40 mg Tablet PO (08:39)
--- NOTE | 2024-12-09 11:27 | P.PN_ITS ---
Subjective 2 Subjective: S/p HD yesterday Medications: Reviewed: Yes Vitals/I&O/Wt Last Vital Signs Temp 98.6 F 12/09/24 08:00 Pulse 76 12/09/24 08:00 Resp 18 12/09/24 08:00 BP 161/77 12/09/24 08:00 Pulse Ox 98 12/09/24 08:00 O2 Del Method Nasal Cannula 12/09/24 08:00 O2 Flow Rate 2 12/09/24 08:00 12/08/24 12/09/24 12/09/24 22:59 06:59 14:59 Intake Total 740 / 740 524 / 1264 240 / 240 Output Total 3040 / 3040 Balance -2300 / -2300 524 / -1776 240 / 240 Weight last 48 hrs Weight 91.626 kg Weight 92 kg Weight 86.5 kg Weight 90.7 kg Weight 89.584 kg Physical Exam 2 Narrative: Patient is awake alert, PERRLA S1-S2 regular rate and rhythm per report Lungs with decreased breath sounds bilaterally per report Abdomen soft nontender Has pedal edema Data 12/10/24 04:46 12/10/24 04:46 Micro: Microbiology 12/08/24 16:17 Blood Culture - Preliminary Blood SPECIMEN COLLECTED 12/07/24 09:25 Urine Culture - Preliminary Urine,Clean Catch Gram Negative Rods 12/07/24 07:33 Blood Culture - Preliminary Blood NEGATIVE TO DATE A&P Assessment and plan (1) ESRD (end stage renal disease) on dialysis: 1. End-stage renal disease: Patient currently on peritoneal dialysis at home- cycler x 10 L, 2.5% and 1.5% dextrose solutions per patient. Currently she has presented with severe volume overload with bilateral pleural effusions and pulmonary edema and she is hypoxic. status post temporary HD catheter placement. s/p HD x 2 sessions , HD tomorrow , with ultrafiltration as tolerated Can DC in Am after hD and resume PD at home 2. Acute on chronic respiratory failure, has volume overload/pulmonary edema, HD as above 3. Anemia: Will order EPO 4. History of hypertension, resume home meds PDMP PDMP Reviewed: Not Reviewed Attestations 2 Medical Necessity Statement*: per medicine Coding Level of Care Code Acute Code for Chg Fwd Diagnoses ESRD (end stage renal disease) on dialysis N18.6; Z99.2
[2024-12-09 12:18] LABS: Glucose Point of Care 131 mg/dL (70-110)
--- NOTE | 2024-12-09 14:36 | PM.PN ---
Subjective Subjective: No acute interim events. Next dialysis planned tomorrow. Medications: Reviewed: Yes Vitals/I&O/Wt Last Vital Signs Temp 98.3 F 12/09/24 12:00 Pulse 71 12/09/24 12:00 Resp 18 12/09/24 12:00 BP 142/68 12/09/24 12:00 Pulse Ox 97 12/09/24 12:00 O2 Del Method Nasal Cannula 12/09/24 12:00 O2 Flow Rate 2 12/09/24 12:00 12/08/24 12/09/24 12/09/24 22:59 06:59 14:59 Intake Total 740 / 740 524 / 1264 240 / 240 Output Total 3040 / 3040 250 / 250 Balance -2300 / -2300 524 / -1776 -10 / -10 Weight last 48 hrs Weight 91.626 kg Weight 92 kg Weight 86.5 kg Weight 90.7 kg Physical Exam Narrative: General: No acute distress, AO x3 HEENT: PERRLA, pupils bilaterally equal and reactive, pallors not present Chest: Normal vesicular breath sounds, no added sounds, equal good air entry bilaterally CVS: S1-S2 regular, no murmurs, no tachycardia, no gallops, no rubs Abdomen: Soft, nontender, no organomegaly, bowel sounds present Neuro: No focal deficits, no facial deformity, AO x3, power 5/5 in all limbs Data 12/09/24 02:18 12/09/24 02:18 Micro: Microbiology 12/07/24 09:25 Urine Culture - Final Urine,Clean Catch Klebsiella oxytoca 12/08/24 16:17 Blood Culture - Preliminary Blood SPECIMEN COLLECTED A&P Assessment and plan (1) ESRD (end stage renal disease) on dialysis: Worsening renal failure, inadequate peritoneal dialysis with anasarca, moderate pleural effusions, respiratory failure newly requiring 5 L of oxygen with shallow air entry, tachypnea. BUN noted up to 70, creatinine 10. Metabolic acidosis, anion gap 24.5. Bicarb 20. Additionally with demand cardiac ischemia, troponins 177. 2-hour troponin 168. With acute diastolic heart failure, NT proBNP 26,563. Reviewed vitals, CBC, INR, CMP, UA, influenza, COVID, RSV PCR, chest x-ray, CT, ER provider note, discussed with ER provider. She has also undergone thoracentesis, 1 L of fluid removed. Requesting analysis, culture. Appreciate nephrology consultation. Surgical consultation. Discussed with the surgeon, will be going for dialysis catheter placement. Pending further reassessment by nephrology to determine whether can still optimize peritoneal dialysis and resume this or whether it is not adequate for her needs. (2) Troponin level elevated: Moderate elevation of troponin, decompensated diastolic heart failure, likely demand ischemia secondary to severe fluid overload, failure of peritoneal dialysis, new respiratory failure, with new requirement of 3 L nasal cannula oxygen. Complete troponin EKG series. Reviewed prior echocardiogram. Monitor telemetry with risk of arrhythmia. I do not see a prior stress test, would benefit from stress test once able to obtain. Plan UTI: Noted 25.40 WBC in urine. 5-10 squamous epithelial cells. Urine cultures requested. Follow-up. Will give ceftriaxone. PAD DM2: Had sliding scale insulin. Consistent carb diet once resumed. Diabetic retinopathy MDD, FRANCK, PTSD Inflammatory arthritis Seronegative spondyloarthropathy Other medical problems. Doing well today December 08, 2024 Underwent hemodialysis today. No new complaints. Urine culture showing gram-negative rods. Continue ceftriaxone 1 g IV every 24 hours. December 09, 2024 No acute interim events. No new complaints. Next HD planned for tomorrow. Urine culture showing Klebsiella oxytocin sensitive to ceftriaxone. Continue same for now. Likely transition back to PD over the next 24 hours. PDMP PDMP Reviewed: Not Reviewed Attestations Medical Necessity Statement*: Next hemodialysis tomorrow, plan transition back to PD when okay per nephrology. Continue ceftriaxone for UTI. Coding Level of Care Code Acute Code for [facility] Fwd Diagnoses ESRD (end stage renal disease) on dialysis N18.6; Z99.2 Troponin level elevated R79.89
[2024-12-09 18:49] LABS: Glucose Point of Care 123 mg/dL (70-110)
[2024-12-09] MEDS: cefTRIAXone 1,000 mg SDV 1000 MG IVP (20:58)
[2024-12-09 21:02] LABS: Glucose Point of Care 184 mg/dL (70-110)
[2024-12-10] VITALS (9 sets, daily range): BP systolic 140–177; BP diastolic 71–83; PULSE 73–82; RESP 17–22; TEMP 36.6–37.1; O2SAT 94–99
[2024-12-10 06:07] LABS: Basophils # 0.1 10^3/uL (0.0-0.1); Basophils % 0.9 %; Eosinophils # 0.4 10^3/uL (0.0-0.8); Eosinophils % 3.9 %; Hematocrit 29.4 % (36-47); Lymphocytes % 21.6 %; Mean Corpuscular HGB Conc 31.6 g/dL (30-55); Mean Corpuscular Hemoglobin 28.4 pg (27-33); Mean Corpuscular Volume 89.6 fl (85-98); Mean Platelet Volume 10.3 fL (7.4-10.4); Monocytes # 0.8 10^3/uL (0.2-0.9); Monocytes % 8.2 %; Neutrophils # 6.07 10^3/uL (1.8-7.7); Neutrophils % 64.7 %; Nucleated Red Blood Cells % 0 %; Platelet Count 352 10^3/cmm (157-399); Red Blood Count 3.28 10^6/uL (3.85-5.65); Red Cell Distribution Width 13.8 % (12.1-15.1); White Blood Count 9.39 10^3/uL (3.29-11.43)
[2024-12-10 06:16] LABS: Blood Urea Nitrogen 36 mg/dL (6-20); Calcium 8.8 mg/dL (8.5-10.5); Carbon Dioxide 26 mmol/L (22-29); Chloride 98 mmol/L (98-107); Glomerular Filtration Rate 7.8 mL/min (90-130); Glucose 128 mg/dL (65-115); Osmolality Calculated 296 mOsm/kg (285-295); Sodium 138 mmol/L (136-145)
[2024-12-10 06:36] LABS: Anion Gap 17.7 (5-19); Potassium 3.7 mmol/L (3.5-5.1)
[2024-12-10 06:45] LABS: Glucose Point of Care 134 mg/dL (70-110)
[2024-12-10] MEDS: lisinopril 20 mg Tablet 40 MG PO (08:06)
[2024-12-10] MEDS: isosorbide mononitrate ER 30 mg Tablet PO (08:06)
[2024-12-10] MEDS: carvedilol 12.5 mg Tablet PO ×2 (08:06→17:55)
[2024-12-10] MEDS: hyDRALAzine 50 mg Tablet PO ×3 (08:06→20:36)
[2024-12-10] MEDS: sevelamer 800 mg Tablet PO ×3 (08:06→20:36)
[2024-12-10] MEDS: atorvastatin 40 mg Tablet PO (08:07)
[2024-12-10] MEDS: aspirin 325 mg Tablet PO (08:07)
[2024-12-10] MEDS: duloxetine 60 mg Capsule PO (08:07)
[2024-12-10] MEDS: amlodipine 10 mg Tablet PO (08:07)
--- NOTE | 2024-12-10 09:33 | PC.CHAP ---
Pastoral Care Encounter/Spiritual Assessment Type of Contact [] Declined digital production artist visit [] Patient/Family/Request visit [] Outpatient visit [] Follow-up visit [] Physician referral [] Code/Alert [x] Routine visit [] Staff referral [] Actively dying [] Patient sleeping [] Family support [] [] Out of room [] Palliative care [] [] Receiving care in room [] Pre-surgical visit [] Trauma [] Long length of stay [] ICU visit [] Other: Relational/Emotional Strength [] Patient feels connected with others/family/visitors/staff [] Distress [] Loneliness/isolation [] Abandonment Spirituality of Patient [x] Person of Kassy [] Attends Taoism of their [place] [x] Believes in Prayer [] Reads Bible or Moravian materials [] There are Spiritual issues to be addressed [employer] Interventions [x] Prayer [x] Active listening [] Non-anxious presence [] Spiritual/emotional support [] Crisis/trauma care [] Spiritual counseling [] Bereavement support [] Provided bereavement packet [] Provided Bible/devotional materials [] Provided toy/stuffed animal, coloring book to patient or family member [] Provided Communion [] Anointing/[place] [] Salvation [x] Completed spiritual assessment [] Other: Impact on Illness or Injury [] Angry [] Fearful [] Anxious [] Often cries [] Exhaustion [] Unable to work [] Unable to attend caodaism [] Unable to walk/stand [] Unable to read [] Unable to drive [] Unable to eat/drink [] Unable to sleep [] Unable to be with family [] Patient intubated [] Other: Summary Time spent with patient 5 min
--- NOTE | 2024-12-10 09:56 | P.PN_ITS ---
Subjective 2 Subjective: no new c/o Medications: Reviewed: Yes Vitals/I&O/Wt Last Vital Signs Temp 98.1 F 12/10/24 08:00 Pulse 79 12/10/24 08:00 Resp 18 12/10/24 08:00 BP 177/83 12/10/24 08:00 Pulse Ox 97 12/10/24 08:00 O2 Del Method Nasal Cannula 12/10/24 08:00 O2 Flow Rate 2 12/10/24 08:00 12/09/24 12/10/24 12/10/24 22:59 06:59 14:59 Intake Total 120 / 360 240 / 240 Output Total 200 / 450 Balance 120 / 110 -200 / -90 240 / 240 Weight last 48 hrs Weight 93.395 kg Weight 93.395 kg Weight 91.626 kg Weight 92 kg Physical Exam 2 Narrative: Patient is awake alert, PERRLA S1-S2 regular rate and rhythm per report Lungs with decreased breath sounds bilaterally per report Abdomen soft nontender Has pedal edema Data 12/10/24 04:46 12/10/24 04:46 Micro: Microbiology 12/08/24 16:17 Blood Culture - Preliminary Blood NEGATIVE TO DATE 12/07/24 09:25 Urine Culture - Final Urine,Clean Catch Klebsiella oxytoca A&P Assessment and plan (1) ESRD (end stage renal disease) on dialysis: 1. End-stage renal disease: Patient currently on peritoneal dialysis at home- cycler x 10 L, 2.5% and 1.5% dextrose solutions per patient. Currently she has presented with severe volume overload with bilateral pleural effusions and pulmonary edema and she is hypoxic. status post temporary HD catheter placement. s/p HD x 2 sessions ,Another HD today , with ultrafiltration as tolerated Can DC after hD and resume PD at home 2. Acute on chronic respiratory failure, has volume overload/pulmonary edema, HD as above 3. Anemia: Will order EPO 4. History of hypertension, resume home meds PDMP PDMP Reviewed: Not Reviewed Attestations 2 Medical Necessity Statement*: per shona Coding Level of Care Code Acute Code for Chg Fwd Diagnoses ESRD (end stage renal disease) on dialysis N18.6; Z99.2
--- NOTE | 2024-12-10 11:07 | PC.NURSE ---
Patient is leaving the unit for dialysis at 1108.
--- NOTE | 2024-12-10 12:02 | P.PN_ITS ---
Subjective 2 Subjective: Seen this morning. Plan to go for dialysis today. Denies chest pain, shortness of breath. On any oxygen at home however requiring 2 L nasal cannula at this time. Vitals/I&O/Wt Last Vital Signs Temp 98.1 F 12/10/24 08:00 Pulse 79 12/10/24 08:00 Resp 18 12/10/24 08:00 BP 177/83 12/10/24 08:00 Pulse Ox 97 12/10/24 08:00 O2 Del Method Nasal Cannula 12/10/24 08:00 O2 Flow Rate 2 12/10/24 08:00 12/09/24 12/10/24 12/10/24 22:59 06:59 14:59 Intake Total 120 / 360 240 / 240 Output Total 200 / 450 Balance 120 / 110 -200 / -90 240 / 240 Weight last 48 hrs Weight 93.395 kg Weight 93.395 kg Weight 91.626 kg Weight 92 kg Physical Exam 2 Narrative: General: No acute distress, AO x3 HEENT: PERRLA, pupils bilaterally equal and reactive, pallors not present: 200 nasal cannula at this time. Chest: Normal vesicular breath sounds, no added sounds, equal good air entry bilaterally CVS: S1-S2 regular, no murmurs, no tachycardia, no gallops, no rubs Abdomen: Soft, nontender, no organomegaly, bowel sounds present Neuro: No focal deficits, no facial deformity, AO x3 Data 12/10/24 04:46 12/10/24 04:46 Micro: Microbiology 12/08/24 16:17 Blood Culture - Preliminary Blood NEGATIVE TO DATE 12/07/24 09:25 Urine Culture - Final Urine,Clean Catch Klebsiella oxytoca A&P Assessment and plan (1) ESRD (end stage renal disease) on dialysis: Worsening renal failure, inadequate peritoneal dialysis with anasarca, moderate pleural effusions, respiratory failure newly requiring 5 L of oxygen with shallow air entry, tachypnea. BUN noted up to 70, creatinine 10. Metabolic acidosis, anion gap 24.5. Bicarb 20. Additionally with demand cardiac ischemia, troponins 177. 2-hour troponin 168. With acute diastolic heart failure, NT proBNP 26,563. Reviewed vitals, CBC, INR, CMP, UA, influenza, COVID, RSV PCR, chest x-ray, CT, ER provider note, discussed with ER provider. She has also undergone thoracentesis, 1 L of fluid removed. Requesting analysis, culture. Appreciate nephrology consultation. Surgical consultation. Discussed with the surgeon, will be going for dialysis catheter placement. Pending further reassessment by nephrology to determine whether can still optimize peritoneal dialysis and resume this or whether it is not adequate for her needs. (2) Troponin level elevated: Moderate elevation of troponin, decompensated diastolic heart failure, likely demand ischemia secondary to severe fluid overload, failure of peritoneal dialysis, new respiratory failure, with new requirement of 3 L nasal cannula oxygen. Complete troponin EKG series. Reviewed prior echocardiogram. Monitor telemetry with risk of arrhythmia. I do not see a prior stress test, would benefit from stress test once able to obtain. (3) Pleural effusion, bilateral: (4) Supplemental oxygen dependent: (5) Hypoxia: (6) CHF (congestive heart failure): Qualifiers: Heart failure chronicity: unspecified Heart failure type: unspecified Qualified Code(s): I50.9 - Heart failure, unspecified (7) Diastolic heart failure: (8) Essential hypertension: (9) Klebsiella cystitis: (10) Peritoneal dialysis catheter in place: Plan UTI: Noted 25.40 WBC in urine. 5-10 squamous epithelial cells. Urine cultures requested. Follow-up. Will give ceftriaxone. PAD DM2: Had sliding scale insulin. Consistent carb diet once resumed. Diabetic retinopathy MDD, FRANCK, PTSD Inflammatory arthritis Seronegative spondyloarthropathy Other medical problems. Doing well today December 08, 2024 Underwent hemodialysis today. No new complaints. Urine culture showing gram- negative rods. Continue ceftriaxone 1 g IV every 24 hours. December 09, 2024 No acute interim events. No new complaints. Next HD planned for tomorrow. Urine culture showing Klebsiella oxytocin sensitive to ceftriaxone. Continue same for now. Likely transition back to PD over the next 24 hours. 12/10/2024 No acute interim events. Plan for dialysis today. Sensitive to ceftriaxone. We will continue at this time and complete 7-day course total. Patient may be able to transition back to PD next 24 hours. Plan for stress test in AM. Will need home O2 eval after dialysis today. Plan to discharge in a.m. after stress test unless further cardiac workup is warranted. Patient agreeable with plan above. PDMP PDMP Reviewed: Not Reviewed Attestations 2 Medical Necessity Statement*: Stress test in AM. Diagnoses ESRD (end stage renal disease) on dialysis N18.6; Z99.2 Troponin level elevated R79.89 Pleural effusion, bilateral J90 Supplemental oxygen dependent Z99.81 Hypoxia R09.02 Congestive heart failure, unspecified HF chronicity, unspecified heart failure type I50.9 Heart failure chronicity: unspecified Heart failure type: unspecified Diastolic heart failure I50.30 Essential hypertension I10 Klebsiella cystitis N30.90; B96.1 Peritoneal dialysis catheter in place Z99.2
--- NOTE | 2024-12-10 12:27 | PC.SOCIAL ---
IMM Updated Updated pt on IMM. No questions voiced. Provided pt a copy. Initialed, dated, & timed a copy & placed in chart.
--- NOTE | 2024-12-10 14:33 | PC.NURSE ---
Patient returned to [facility] from dialysis at 1434.
[2024-12-10] MEDS: heparin, porcine 1,000 unit/mL INJ 10 mL 10000 UNIT INTRACATH (14:38)
[2024-12-10] MEDS: heparin, porcine 1,000 unit/mL INJ 10 mL 1000 UNIT IV (14:39)
[2024-12-10] MEDS: polyethylene glycol 3350 Pkt 17 gm PO (16:32)
[2024-12-10 16:40] LABS: Glucose Point of Care 220 mg/dL (70-110)
[2024-12-10] MEDS: insulin lispro 100 unit/1 mL SUBCUT ×2 (17:55→20:36)
[2024-12-10] MEDS: cefTRIAXone 1,000 mg SDV 1000 MG IVP (20:36)
[2024-12-10 20:50] LABS: Glucose Point of Care 170 mg/dL (70-110)
[2024-12-11] VITALS (8 sets, daily range): BP systolic 117–165; BP diastolic 64–84; PULSE 76–87; RESP 14–20; TEMP 36.4–36.9; O2SAT 91–95
[2024-12-11 03:40] LABS: Basophils # 0.1 10^3/uL (0.0-0.1); Eosinophils # 0.3 10^3/uL (0.0-0.8); Eosinophils % 3.8 %; Hematocrit 30.2 % (36-47); Lymphocytes # 2.1 10^3/uL (0.8-4.8); Lymphocytes % 25.5 %; Mean Corpuscular HGB Conc 31.8 g/dL (30-55); Mean Corpuscular Hemoglobin 27.7 pg (27-33); Mean Platelet Volume 9.7 fL (7.4-10.4); Monocytes # 0.7 10^3/uL (0.2-0.9); Monocytes % 8.2 %; Neutrophils % 60.5 %; Nucleated Red Blood Cells % 0 %; Platelet Count 366 10^3/cmm (157-399); Red Blood Count 3.47 10^6/uL (3.85-5.65); Red Cell Distribution Width 13.6 % (12.1-15.1); White Blood Count 8.26 10^3/uL (3.29-11.43)
[2024-12-11 04:00] LABS: Anion Gap 14.3 (5-19); Blood Urea Nitrogen 23 mg/dL (6-20); Calcium 8.5 mg/dL (8.5-10.5); Carbon Dioxide 28 mmol/L (22-29); Chloride 99 mmol/L (98-107); Glomerular Filtration Rate 11.3 mL/min (90-130); Glucose 113 mg/dL (65-115); Magnesium 1.9 mg/dL (1.7-2.3); Osmolality Calculated 288 mOsm/kg (285-295); Potassium 4.3 mmol/L (3.5-5.1); Sodium 137 mmol/L (136-145)
--- NOTE | 2024-12-11 05:23 | ECG_ITS ---
[facility] Test Date: 2024-12-11 Pat Name: Lizy Evans Department: Room: 104 Gender: Female [employer] Vendor: : 1970 Requested By: Kristine Torres Order Number: [id number] Herson ESTES: Interpretive Statements Lung unchanged pre/post procedure; Intraprocedure shortess of breath; Symptoms resoled by discharge [email or web address]
--- NOTE | 2024-12-11 05:24 | NMCV_ITS ---
NM zaheer perf SPECT r/s* [id number] Lizy Evasn Age: 54 Gender: F : 1970 Exam Date: 12/11/2024 06:14 Ordering Phys: Kristine Torres MD Technologist: JODI Flower Exam Location: [facility] Indications: CP STRESS TEST Please see separate stress test report in [facility] for full findings IMAGE PROTOCOL Rest/Stress 1 Lexiscan Day Radiopharmaceutical Dose (mCi) Administration Site Administered by Rest: Tc-99m 10.9 IV Sestamibi Stress:Tc-99m 33 IV JODI Flower Sestamibi Rest: 11-Dec-2024 60 Discovery 630 Stress: 11-Dec-2024 30 Discovery 630 0.4mg Lexiscan. Supine position only as patient was unable to lay prone. SPECT RESULTS Technical Quality: Good Raw Data Analysis: Normal Image Corrections: No attenuation or motion correction applied Summed Stress Score: 12 Summed Rest Score: 8 Summed Difference Score: 4 PERFUSION FINDINGS There is a large sized area of mostly reversible perfusion defect seen in the apical lateral, inferolateral and lateral capellan. This is consistent with small area of prior infarct with large area of domo-infarct ischemia in left circumflex artery territory. FUNCTIONAL RESULTS (calculated via Gated SPECT) Stress Image LV EF (%): 60 Stress EDV (mL):121 TID: 1.03 Stress ESV (mL):48 FUNCTIONAL FINDINGS: There is normal left ventricular systolic function. IMPRESSIONS 1. Small area of prior infarct with large area of domo-infarct ischemia seen in left circumflex artery territory. Prone imaging is not performed. 2. LV systolic function is normal Cornell Cisneros MD (Electronically Signed) Final Date: 11 December 2024 09:12 S
[2024-12-11] MEDS: regadenoson 0.4 Mg/5 ml Syringe IVP (06:38)
--- NOTE | 2024-12-11 07:17 | PC.NURSE ---
Patient is at stress test at shift change.
[2024-12-11 08:02] LABS: Glucose Point of Care 168 mg/dL (70-110)
--- NOTE | 2024-12-11 08:03 | PC.NURSE ---
Patient returned from stress test at 0745. Patient did say that they did the stress test but she did vomit and have a BM after the test. She thinks it is from the medications that they gave her.
[2024-12-11] MEDS: insulin lispro 100 unit/1 mL SUBCUT ×4 (08:15→21:07)
[2024-12-11] MEDS: ondansetron 2 mg/ML SDV 2 mL 4 MG IVP (08:15)
[2024-12-11] MEDS: aspirin 325 mg Tablet PO (09:02)
[2024-12-11] MEDS: hyDRALAzine 50 mg Tablet PO ×3 (09:02→20:27)
[2024-12-11] MEDS: sevelamer 800 mg Tablet PO ×3 (09:02→20:27)
[2024-12-11] MEDS: duloxetine 60 mg Capsule PO (09:02)
[2024-12-11] MEDS: atorvastatin 40 mg Tablet PO (09:02)
[2024-12-11] MEDS: carvedilol 12.5 mg Tablet PO ×2 (09:02→17:25)
[2024-12-11] MEDS: amlodipine 10 mg Tablet PO (09:02)
[2024-12-11] MEDS: isosorbide mononitrate ER 30 mg Tablet PO (09:02)
[2024-12-11] MEDS: lisinopril 20 mg Tablet 40 MG PO (09:03)
--- NOTE | 2024-12-11 09:51 | USCV_ITS ---
Lizy Evans Age: 54 Gender: F : 1970 Exam Date: 12/11/2024 10:14 Ordering Phys: Annemarie Flores NP Technologist: Exam Location: [facility] [place] Indication: CP BP: 164 / 84 HR: 97 Rhythm: Sinus Technical Quality: Adequate MEASUREMENTS (Male / Female) Normal Values 2D ECHO LV Diastolic Diameter PLAX 3.7 cm 4.2 - 5.9 / 3.9 - 5.3 cm IVS Diastolic Thickness 1.3 cm 0.6 - 1.0 / 0.6 - 0.9 cm IVS Systolic Thickness 2.1 cm LVPW Diastolic Thickness 1.7 cm 0.6 - 1.0 / 0.6 - 0.9 cm LVPW Systolic Thickness 1.7 cm LVOT Diameter 1.8 cm LV Ejection Fraction 2D Teich 68.9 % LV Ejection Fraction MOD 4C 62.0 % LV Ejection Fraction MOD 2C 60.3 % LV Ejection Fraction 2C AL 61.2 % LA Diameter 3.8 cm RA Systolic Volume 4C AL 39.8 ml RA Systolic Volume 4C MOD 38.5 ml Aorta at Sinotubular Diameter 2.7 cm M-MODE LA Ao Ratio MM 1.5 AV Cusp Separation MM 2.6 cm DOPPLER AV Peak Velocity 175.0 cm/s LVOT Peak Velocity 110.0 cm/s AV Area Cont Eq vti 1.8 cm squared AV Area Cont Eq pk 1.7 cm squared MV Peak Velocity 98.0 cm/s MV Area PHT 6.4 cm squared Mitral E to A Ratio 1.2 TV Peak Velocity 169.5 cm/s TR Peak Velocity 171.0 cm/s TR Peak Gradient 11.7 mmHg TV Peak E Velocity 72.0 cm/s PV Peak Velocity 124.0 cm/s FINDINGS Left Ventricle Left ventricle is normal in size. LV systolic function is normal with EF of 55-60%. No regional wall motion abnormalities are seen. Right Ventricle Normal in size and function Right Atrium Normal in size. Has an echogenic structure. Possibly catheter. Left Atrium Normal in size Mitral Valve Structurally normal mitral valve. Mild mitral regurgitation Aortic Valve Structurally normal aortic valve. No significant stenosis or regurgitation. Tricuspid Valve Insufficient TR jet to evaluate RVSP. Pulmonic Valve Not well-visualized. Pericardium Normal Aorta Normal in size IVC Appears to be normal CONCLUSIONS LV systolic function is normal with EF of 55-60% Right atrium has an echogenic structure. Possibly catheter. Clinical correlation required. Mild mitral regurgitation Cornell Cisneros MD (Electronically Signed) Final Date: 13 December 2024 08:45 S
--- NOTE | 2024-12-11 10:10 | P.PN_ITS ---
Subjective 2 Subjective: No new complaints Medications: Reviewed: Yes Vitals/I&O/Wt Last Vital Signs Temp 97.6 F 12/11/24 07:58 Pulse 85 12/11/24 07:58 Resp 15 12/11/24 07:58 BP 165/84 12/11/24 07:58 Pulse Ox 94 12/11/24 07:58 O2 Del Method Room Air 12/11/24 07:58 O2 Flow Rate 2 12/10/24 16:00 12/10/24 12/11/24 12/11/24 22:59 06:59 14:59 Intake Total 1040 / 1280 680 / 1960 Output Total 3502 / 3502 3502 Balance -2462 / -2222 679 / -1543 Weight last 48 hrs Weight 88.36 kg Weight 89.8 kg Weight 93.395 kg Weight 93.395 kg Physical Exam 2 Narrative: Patient is awake alert, PERRLA S1-S2 regular rate and rhythm per report Lungs with decreased breath sounds bilaterally per report Abdomen soft nontender Has pedal edema Data 12/12/24 03:00 12/12/24 03:00 A&P Assessment and plan (1) ESRD (end stage renal disease) on dialysis: 1. End-stage renal disease: Patient currently on peritoneal dialysis at home- cycler x 10 L, 2.5% and 1.5% dextrose solutions per patient. Currently she has presented with severe volume overload with bilateral pleural effusions and pulmonary edema and she is hypoxic. status post temporary HD catheter placement. s/p HD x 3 sessions , with ultrafiltration as tolerated Can DC and resume PD at home 2. Acute on chronic respiratory failure, has volume overload/pulmonary edema, HD as above 3. Anemia: Will order EPO 4. History of hypertension, resume home meds PDMP PDMP Reviewed: Not Reviewed Attestations 2 Medical Necessity Statement*: per [facility] team Coding Level of Care Code Acute Code for Chg Fwd Diagnoses ESRD (end stage renal disease) on dialysis N18.6; Z99.2
[2024-12-11 11:55] LABS: Glucose Point of Care 142 mg/dL (70-110)
--- NOTE | 2024-12-11 12:07 | P.PN_ITS ---
Subjective 2 Subjective: Seen this morning. Patient had stress test today however after stress test ended up having vomiting. Is any chest pain or shortness of breath at this time. Vitals/I&O/Wt Last Vital Signs Temp 98.0 F 12/11/24 11:41 Pulse 80 12/11/24 11:41 Resp 15 12/11/24 11:41 BP 117/64 12/11/24 11:41 Pulse Ox 93 12/11/24 11:41 O2 Del Method Room Air 12/11/24 11:41 O2 Flow Rate 2 12/10/24 16:00 12/10/24 12/11/24 12/11/24 22:59 06:59 14:59 Intake Total 1040 / 1280 680 / 1960 Output Total 3502 / 3502 3502 Balance -2462 / -2222 679 / -1543 Weight last 48 hrs Weight 88.36 kg Weight 89.8 kg Weight 93.395 kg Weight 93.395 kg Physical Exam 2 Narrative: General: No acute distress, AO x3 HEENT: PERRLA, pupils bilaterally equal and reactive, pallors not present: 200 nasal cannula at this time. Chest: Normal vesicular breath sounds, no added sounds, equal good air entry bilaterally CVS: S1-S2 regular, no murmurs, no tachycardia, no gallops, no rubs Abdomen: Soft, nontender, no organomegaly, bowel sounds present Neuro: No focal deficits, no facial deformity, AO x3 Data 12/11/24 03:03 12/11/24 03:03 A&P Assessment and plan (1) ESRD (end stage renal disease) on dialysis: Worsening renal failure, inadequate peritoneal dialysis with anasarca, moderate pleural effusions, respiratory failure newly requiring 5 L of oxygen with shallow air entry, tachypnea. BUN noted up to 70, creatinine 10. Metabolic acidosis, anion gap 24.5. Bicarb 20. Additionally with demand cardiac ischemia, troponins 177. 2-hour troponin 168. With acute diastolic heart failure, NT proBNP 26,563. Reviewed vitals, CBC, INR, CMP, UA, influenza, COVID, RSV PCR, chest x-ray, CT, ER provider note, discussed with ER provider. She has also undergone thoracentesis, 1 L of fluid removed. Requesting analysis, culture. Appreciate nephrology consultation. Surgical consultation. Discussed with the surgeon, will be going for dialysis catheter placement. Pending further reassessment by nephrology to determine whether can still optimize peritoneal dialysis and resume this or whether it is not adequate for her needs. (2) Troponin level elevated: Moderate elevation of troponin, decompensated diastolic heart failure, likely demand ischemia secondary to severe fluid overload, failure of peritoneal dialysis, new respiratory failure, with new requirement of 3 L nasal cannula oxygen. Complete troponin EKG series. Reviewed prior echocardiogram. Monitor telemetry with risk of arrhythmia. I do not see a prior stress test, would benefit from stress test once able to obtain. (3) Pleural effusion, bilateral: (4) Supplemental oxygen dependent: (5) Hypoxia: (6) CHF (congestive heart failure): Qualifiers: Heart failure chronicity: unspecified Heart failure type: unspecified Qualified Code(s): I50.9 - Heart failure, unspecified (7) Diastolic heart failure: (8) Essential hypertension: (9) Klebsiella cystitis: (10) Peritoneal dialysis catheter in place: Plan UTI: Noted 25.40 WBC in urine. 5-10 squamous epithelial cells. Urine cultures requested. Follow-up. Will give ceftriaxone. PAD DM2: Had sliding scale insulin. Consistent carb diet once resumed. Diabetic retinopathy MDD, FRANCK, PTSD Inflammatory arthritis Seronegative spondyloarthropathy Other medical problems. Doing well today December 08, 2024 Underwent hemodialysis today. No new complaints. Urine culture showing gram- negative rods. Continue ceftriaxone 1 g IV every 24 hours. December 09, 2024 No acute interim events. No new complaints. Next HD planned for tomorrow. Urine culture showing Klebsiella oxytocin sensitive to ceftriaxone. Continue same for now. Likely transition back to PD over the next 24 hours. 12/10/2024 No acute interim events. Plan for dialysis today. Sensitive to ceftriaxone. We will continue at this time and complete 7-day course total. Patient may be able to transition back to PD next 24 hours. Plan for stress test in AM. Will need home O2 eval after dialysis today. Plan to discharge in a.m. after stress test unless further cardiac workup is warranted. Patient agreeable with plan above. 12/11/2024 Patient underwent stress testing today. Stress test is positive. Discussed with Dr. López this morning who read the stress test. I will be consulting cardiology for further management and workup. Discussed with Annemarie nurse practitioner. ? Continue hemodialysis while in hospital and switch back to PD when patient goes home. Awaiting cardiology recommendations. PDMP PDMP Reviewed: Not Reviewed Attestations 2 Medical Necessity Statement*: Positive stress test, awaiting cardiology consult. Diagnoses ESRD (end stage renal disease) on dialysis N18.6; Z99.2 Troponin level elevated R79.89 Pleural effusion, bilateral J90 Supplemental oxygen dependent Z99.81 Hypoxia R09.02 Congestive heart failure, unspecified HF chronicity, unspecified heart failure type I50.9 Heart failure chronicity: unspecified Heart failure type: unspecified Diastolic heart failure I50.30 Essential hypertension I10 Klebsiella cystitis N30.90; B96.1 Peritoneal dialysis catheter in place Z99.2
--- NOTE | 2024-12-11 12:46 | XRR_ITS ---
PROCEDURE INFORMATION: Exam: XR Chest Exam date and time: 12/11/2024 12:58 PM Age: 54 years old Clinical indication: Condition or disease; Lung condition and disease; Pleural effusion; Other: Not specified; Prior surgery; Surgery date: 6+ months; Surgery type: Dialysis cath; Additional info: Bilateral pleural effusions TECHNIQUE: Imaging protocol: Radiologic exam of the chest. Views: 2 views. COMPARISON: CR XR chest 1V portable [id number] 12/07/2024 1:16 PM FINDINGS: Tubes, catheters and devices: Unchanged tunneled right IJ dialysis catheter projecting in satisfactory position. Lungs: Increased atelectasis and/or pneumonitis left lower lung. Decreased atelectasis and/or pneumonitis right lower lung. Increased diffuse bilateral pulmonary edema and/or pneumonitis. Pleural spaces: Increased large left pleural effusion. Decreased small right pleural effusion. No pneumothorax. Heart/Mediastinum: Unremarkable. No cardiomegaly. Bones/joints: Nothing acute. No change. XR/XR chest 2V* [id number] IMPRESSION: 1. Increased atelectasis and/or pneumonitis left lower lung. 2. Decreased atelectasis and/or pneumonitis right lower lung. 3. Increased diffuse bilateral pulmonary edema and/or pneumonitis. 4. Increased large left pleural effusion. 5. Decreased small right pleural effusion.
--- NOTE | 2024-12-11 13:51 | US_ITS ---
WS: [id number] ULTRASOUND-GUIDED THORACENTESIS, LEFT HISTORY: left pleural effusion Procedure, risks, and complications were explained to the patient. With the patient in an upright position, the skin over the LEFT posterior thorax was cleansed with ChloraPrep and anesthetized with 1% buffered lidocaine. A 5 [place] Yueh needle is inserted into the pleural fluid without complication. A pproximately 1100 cc of dark yellow pleural fluid is removed without difficulty. Pleural fluid specimen collected for analysis as requested. / thoracentesis [id number] IMPRESSION: 1. LEFT thoracentesis yielding 1100 cc of fluid. 2. Chest radiograph to follow to evaluate for pneumothorax.
--- NOTE | 2024-12-11 15:14 | XR_ITS ---
WS: [id number] PORTABLE CHEST HISTORY: Post LEFT thoracentesis. COMPARISON: 12/11/2024 Status post LEFT thoracentesis. No pneumothorax. Minimal atelectasis and/or effusion at the LEFT lung base. Much better aeration of both lungs. Less pulmonary venous congestion. Minimal blunting of the RIGHT costophrenic angle. Cardiac size: Normal. Mediastinum/Aorta: Normal mediastinum. No osseous abnormality seen. Large bore dialysis catheter tip at the RIGHT atrium. XR/XR chest 1V portable [id number] IMPRESSION: 1. No LEFT pneumothorax status post thoracentesis. 2. Minimal residual LEFT pleural effusion and/or atelectasis at the lung base.
[2024-12-11 15:58] LABS: Glucose Point of Care 189 mg/dL (70-110)
[2024-12-11 17:08] LABS: Cyto Order Verification No Order
[2024-12-11 17:11] LABS: Appearance, Pleural Fluid CLEAR (CLEAR); Color, Pleural Fluid Yellow (Pale Yellow); PATH Referral YES
[2024-12-11 17:12] LABS: Fluid Laterality LT PLEURAL FLUID 2
[2024-12-11 17:20] LABS: Mononuclear %, Pleural Fluid 96 %; Mononuclear, Pleural Fluid # 0.105 10^3/uL; Polynuclear Cells, Pleural # 0.004 10^3/uL; Polynuclear Cells, Pleural % 4 %
[2024-12-11 18:19] LABS: LDH Pleural Fluid 145 U/L; Pleural Fluid Albumin 2.4 g/dL; Total Protein Pleural Fluid 4.1 g/dL; Triglycerides, Pleural Fluid 49 mg/dL
[2024-12-11] MEDS: cefTRIAXone 1,000 mg SDV 1000 MG IVP (20:27)
[2024-12-11 20:50] LABS: Glucose Point of Care 164 mg/dL (70-110)
[2024-12-12] VITALS (7 sets, daily range): BP systolic 139–178; BP diastolic 66–89; PULSE 71–95; RESP 10–22; TEMP 36.4–37; O2SAT 94–97
[2024-12-12 03:49] LABS: Basophils # 0.1 10^3/uL (0.0-0.1); Basophils % 0.7 %; Eosinophils # 0.3 10^3/uL (0.0-0.8); Eosinophils % 3.4 %; Hematocrit 30.3 % (36-47); Lymphocytes # 2.6 10^3/uL (0.8-4.8); Lymphocytes % 27.2 %; Mean Corpuscular Hemoglobin 27.2 pg (27-33); Mean Corpuscular Volume 87.8 fl (85-98); Monocytes # 0.7 10^3/uL (0.2-0.9); Monocytes % 7.5 %; Neutrophils # 5.78 10^3/uL (1.8-7.7); Neutrophils % 60.3 %; Nucleated Red Blood Cells % 0 %; Platelet Count 362 10^3/cmm (157-399); Red Blood Count 3.45 10^6/uL (3.85-5.65); Red Cell Distribution Width 13.7 % (12.1-15.1)
[2024-12-12 04:12] LABS: Anion Gap 20.7 (5-19); Blood Urea Nitrogen 38 mg/dL (6-20); Calcium 8.7 mg/dL (8.5-10.5); Carbon Dioxide 24 mmol/L (22-29); Chloride 99 mmol/L (98-107); Creatinine Clr Calc Pharmacy 12.8158; Glomerular Filtration Rate 8.3 mL/min (90-130); Glucose 130 mg/dL (65-115); Osmolality Calculated 299 mOsm/kg (285-295); Potassium 4.7 mmol/L (3.5-5.1); Sodium 139 mmol/L (136-145)
[2024-12-12 06:29] LABS: Glucose Point of Care 134 mg/dL (70-110)
--- NOTE | 2024-12-12 08:07 | PM.CONSULT ---
Providers/Reason For Consult Consulting Physician/Specialty*: Winter Ramirez MD Reason for Consult*: Abnormal stress test, NSTEMI Requesting Physician: Dr. Torres Attending Physician: Kristine Torres MD Primary Care Provider: SEGUN Mulligan History of Present Illness History of Present Illness This is a very pleasant 54-year-old female who presented to the emergency room a few days ago with complaints of shortness of breath. At the time she was mildly dyspneic and had orthopnea. She had been short of breath for the last several days. Patient has a history of diabetes, end-stage renal disease on peritoneal dialysis at home. She does make some urine still. She was found to have large bilateral pleural effusions. She underwent two thoracentesis. She has started hemodialysis inpatient. Current creat. is 5.4. her troponin was elevated at 177-168.2-165. She denies any chest pain or shortness of breath at the time of my visit. Denies recent chest pain. Due to elevated troponin, a stress test was done that showed large area of domo-infarct ischemia seen in the left circ. Prone imaging was not performed. LV systolic function was normal. EKG showed no st elevation or acute changes. Echo has been done but not read. Review of Systems Narrative: Consitutional: denies fever, chills, body aches, or changes in appetite, denies abnormal weight loss Card: Denies chest pain, palpitations, irregular heart rhythm, edema, syncope, shortness of breath, orthopnea, leg pain with exertion Resp: Denies shortness of breath, denies hemoptysis, denies cough GI: denies abdominal pain, denies nausea or voimting, denies blood in stool : denies blood in urine, denies dysuria Musc: Denies extremity pain, denies limited range of motion or recent injury Skin: Denies rash, lesions, or wounds, denies changes to skin color Neuro: Denies nubmness in extremities, h/a, s/s of stroke Carlos: Denies easy bruiding/bleeding Medications/Allergies Home Medications ?Medication ?Instructions ?Recorded ?Confirmed ?Last Taken ?Type omeprazole 20 mg capsule,delayed 20 mg PO DAILY 04/06/24 12/07/24 Unknown History release isosorbide mononitrate 30 mg 30 mg PO DAILY #90 tabs 04/09/24 12/07/24 12/07/24 Rx tablet,extended release 24 hr cetirizine 10 mg tablet 10 mg PO DAILY PRN Allergy Symptoms 05/23/24 12/07/24 Unknown History duloxetine 60 mg capsule,delayed 60 mg PO DAILY #90 caps 09/18/24 12/07/24 12/07/24 Rx release (Cymbalta) atorvastatin 40 mg tablet 40 mg PO DAILY #90 tabs 10/08/24 12/07/24 12/07/24 Rx insulin regular hum U-500 conc 500 See Rx Instructions .Route 10/08/24 12/07/24 Unknown Rx unit/mL(3 mL) subcut pen (Humulin .COMPLEX #48 mL R U-500 (Conc) Insulin Kwikpen) calcitriol 0.25 mcg capsule 0.25 mcg PO DAILY 10/30/24 12/07/24 12/07/24 History carvedilol 12.5 mg tablet 12.5 mg PO BID 90 days #180 tabs 10/30/24 12/07/24 12/07/24 Rx hydralazine 50 mg tablet 50 mg PO TID 90 days #270 tabs 10/30/24 12/07/24 12/07/24 Rx lisinopril 40 mg tablet 40 mg PO DAILY #90 tabs 10/30/24 12/07/24 12/07/24 Rx vit B,C-folic ac 800 mcg-zinc 12.5 1 tab PO DAILY 10/30/24 12/07/24 12/07/24 History mg-selen-D3 2,000 unit-vit E tablet (RenaPlex-D) amlodipine 10 mg tablet 10 mg PO DAILY 12/07/24 12/07/24 12/07/24 History sevelamer carbonate 800 mg tablet 800 mg PO TID 12/07/24 12/07/24 Unknown History torsemide 100 mg tablet 100 mg PO DAILY 12/07/24 12/07/24 Unknown History Allergies Allergy/AdvReac Type Severity Reaction Status Date / Time venom-honey bee Allergy Severe ALGY-Redness Verified 12/07/24 11:34 of Skin marijuana (cannabis) Allergy Intermediate ADR-Nausea Verified 12/07/24 11:34 codeine AdvReac Severe ADR-Vomitin Verified 12/07/24 11:34 g morphine AdvReac Severe ADR-Vomitin Verified 12/07/24 11:34 g propoxyphene (From AdvReac Severe ADR-Vomitin Verified 12/07/24 11:34 Veronica-Yulia) g latex AdvReac Intermediate ALGY-Rash Verified 12/07/24 11:34 Current Medications Generic Name Dose Route Start Last Admin Trade Name Cedricq PRN Reason Stop Dose Admin Amlodipine Besylate 10 mg 12/08/24 09:00 12/11/24 09:02 Amlodipine 10 Mg Tablet PO 10 mg DAILY ALMITA Administration Aspirin 325 mg 12/07/24 19:10 12/11/24 09:02 Aspirin 325 Mg Tablet PO 325 mg DAILY ALMITA Administration Atorvastatin Calcium 40 mg 12/08/24 09:00 12/11/24 09:02 Atorvastatin 40 Mg Tablet PO 40 mg DAILY ALMITA Administration Carvedilol 12.5 mg 12/08/24 09:00 12/11/24 17:25 Carvedilol 12.5 Mg Tablet PO 12.5 mg BID ALMITA Administration Ceftriaxone Sodium 1,000 mg 12/07/24 20:00 12/11/24 20:27 Ceftriaxone 1,000 Mg Sdv IVP 1,000 mg Q24H ALMITA Administration Protocol Duloxetine HCl 60 mg 12/08/24 09:00 12/11/24 09:02 Duloxetine 60 Mg Capsule PO 60 mg DAILY ALMITA Administration Hydralazine HCl 50 mg 12/07/24 21:00 12/11/24 20:27 Hydralazine 50 Mg Tablet PO 50 mg TID ALMITA Administration Insulin Human Lispro 0 unit 12/07/24 18:00 12/12/24 07:48 Insulin Lispro 100 Unit/1 Ml SUBCUT Not Given WM&BEDTIME ALMITA Protocol Isosorbide Mononitrate 30 mg 12/08/24 09:00 12/11/24 09:02 Isosorbide Mononitrate Er 30 Mg Tablet PO 30 mg DAILY ALMITA Administration Lisinopril 40 mg 12/08/24 09:00 12/11/24 09:03 Lisinopril 20 Mg Tablet PO 40 mg DAILY ALMITA Administration Ondansetron HCl 4 mg 12/07/24 11:38 12/11/24 08:15 Ondansetron 2 Mg/Ml Sdv 2 Ml IVP 4 mg Q15M PRN Administration Nausea/Vomiting PACU PHASE II Polyethylene Glycol 17 gm 12/10/24 15:55 12/11/24 09:03 Polyethylene Glycol 3350 Pkt 17 Gm PO Not Given DAILY ALMITA Sevelamer Carbonate 800 mg 12/07/24 21:00 12/11/24 20:27 Sevelamer 800 Mg Tablet PO 800 mg TID ALMITA Administration PFSH Acute PFSH: Medical History PAD (peripheral artery disease) Essential hypertension Peritoneal dialysis catheter in place Uncontrolled type 2 diabetes mellitus Pleural effusion Anemia of chronic disease ESRD (end stage renal disease) Diabetic neuropathy, type II diabetes mellitus Diabetic retinopathy Bereavement Major depressive disorder, recurrent, in partial remission Psychiatric care FH: total knee replacement left HLA B27 (HLA B27 positive) High risk medication use Inflammatory arthritis Seronegative spondyloarthropathy Chronic insomnia See subjective note below. Chronic pain See subjective note below. Chronic post-traumatic stress disorder (PTSD) Generalized anxiety disorder Major depressive disorder, recurrent, moderate Surgical History History of cataract extraction History of hysterectomy for benign disease History of tonsillectomy History of appendectomy History of left knee replacement Family History Mother Hypertension Diabetes Psychiatric illness Thyroid disease Father , in his 50's Family history of premature coronary artery disease Hyperlipidemia Myocardial infarction Brother Hypertension Sister No problems noted. Denies family history of Rheumatoid arthritis Lupus Social History Smoking and tobacco/nicotine status: unknown if used tobacco/nicotine Second hand smoke exposure: No Alcohol intake: never Substance/Drug Use: never Adopted: No Caregiver/support person: No Lives independently: No Household members: family service: No Current occupational status: unemployed and disabled Sexually active: Yes Do you think of yourself as: Straight/Heterosexual Current gender identity: Female Vitals/I&O/Wt Last Vital Signs Temp 98.2 F 12/12/24 07:47 Pulse 83 12/12/24 07:47 Resp 10 L 12/12/24 07:47 BP 159/79 12/12/24 07:47 Pulse Ox 97 12/12/24 07:47 O2 Del Method Nasal Cannula 12/12/24 07:47 O2 Flow Rate 2 12/12/24 07:47 12/11/24 12/12/24 12/12/24 22:59 06:59 14:59 Intake Total 660 / 1020 100 / 1120 Balance 660 / 1020 100 / 1120 Weight last 48 hrs Weight 193 lb 9.6 oz Weight 194 lb 12.8 oz Weight 197 lb 15.602 oz Physical Exam Narrative: General: No apparent distress, healthy appearing, well nourished HENMT: normoceophalic Eye: PERRL Neck: No carotid bruit bilaterally Muskuloskeletal: Full ROM Lymphatic: no lymphedema noted Respiratory: Normal respiratory effort, clear to auscultation bilaterally throughout all lung hackett, no use of accessory muscles Cardio: No JVD, regular rate, regular rhythm, S1 S2 normal, no murmurs, peripheral pulses 2+ radial palpated bilaterally GI: Normal to inspection, nondistended Extremities: Full ROM, normal, normal capillary refill, no cyanosis or edema Neuro: Alert and oriented x4, no focal motor deficits Psych: Affect normal, denies suicidal ideation, mental status grossly normal Skin: No rashes or lesions noted, no wounds Data 12/12/24 03:00 12/12/24 03:00 Micro: Microbiology 12/07/24 07:33 Blood Culture - Final Blood NO GROWTH AFTER 5 DAYS A&P Assessment and plan (1) Essential hypertension: (2) Hyperlipidemia: (3) PAD (peripheral artery disease): (4) CHF (congestive heart failure): Qualifiers: Heart failure chronicity: unspecified Heart failure type: unspecified Qualified Code(s): I50.9 - Heart failure, unspecified (5) Troponin level elevated: (6) Diastolic heart failure: (7) Abnormal stress test: Plan At this time, patient has abnormal stress test, NSTEMI, risk factors for CAD. Recommend proceeding with left heart cath possible PCI today. Patient has been NPO. Dr. Ramirez has discussed this with the patient. She fully agrees to proceed. Plan is for patient to get dialysis today after the cath. This was discussed with Dr. Torres as well. Thank you, Dr. Torres, for allowing us to care for this very pleasant 54 year old female. PDMP PDMP Reviewed: Not Reviewed Consult Attestations Medical Necessity Statement: Deferred to primary. Coding Level of Care Code Acute Code for Chg Fwd Diagnoses Essential hypertension I10 Hyperlipidemia E78.5 PAD (peripheral artery disease) I73.9 Congestive heart failure, unspecified HF chronicity, unspecified heart failure type I50.9 Heart failure chronicity: unspecified Heart failure type: unspecified Troponin level elevated R79.89 Diastolic heart failure I50.30 Abnormal stress test R94.39
[2024-12-12] MEDS: hyDRALAzine 50 mg Tablet PO ×3 (09:21→20:18)
[2024-12-12] MEDS: amlodipine 10 mg Tablet PO (09:22)
[2024-12-12] MEDS: lisinopril 20 mg Tablet 40 MG PO (09:22)
[2024-12-12] MEDS: aspirin 325 mg Tablet PO (09:22)
[2024-12-12] MEDS: atorvastatin 40 mg Tablet PO ×2 (09:23→20:18)
[2024-12-12] MEDS: isosorbide mononitrate ER 30 mg Tablet PO (09:23)
[2024-12-12] MEDS: carvedilol 12.5 mg Tablet PO ×2 (09:23→18:15)
[2024-12-12] MEDS: duloxetine 60 mg Capsule PO (09:23)
[2024-12-12] MEDS: sevelamer 800 mg Tablet PO ×3 (09:23→21:19)
--- NOTE | 2024-12-12 09:59 | XACV_ITS ---
Exam Room: [facility] Ht: 163 cm Wt: 88 kg BSA: 2.02 m2 Gender: Female : 1970 Any Known Allergies: Other Exam Priority: Routine Procedure(s): Procedure Description: Diagnostic procedure Procedure Description: PCI procedure Procedure Description: Left Heart Catheterization Procedure Description: Left ventriculography Procedure Description: Drug Eluting Coronary Stent Procedure Description: PTCA Procedure Description: Miscellaneous Procedure Description: ACT Procedure Description: Coronary Angiography Ashley WILSON; Diagnostic Cath Status: Urgent Diagnostic Findings * Left Main has no disease. * Circumflex has no disease. * Right Coronary Artery has no disease. * Proximal Left Anterior Descending: moderate 50% stenosis, LUTHER: 3 flow. * Mid Left Anterior Descending: significant 80% stenosis, LUTHER: 3 flow. * 1st Diagonal: obstructive 70% stenosis, LUTHER: 3 flow. * Coronary angiography shows right dominance. PCI Status: Urgent PCI Indication: New Onset Angina <= 2 months Interventional Findings * Mid Left Anterior Descendin% stenosis treated with a AB TREK 2.50X15 RX BALLOON, ITZ Prince NITA 3.0X22 VICKI, and ITZ VALLEJO EUPHORA RX [id number] BALLOON. 0% residual stenosis, LUTHER: 3 flow. * 1st Diagonal: 70% stenosis treated with a AB MINI TREK 2.00X12 RX BALLOON. 20% residual stenosis, LUTHER: 3 flow. Conclusions 1. There is significant coronary artery disease with one vessel disease. 2. Normal left ventricular systolic function. Ejection fraction of 65%. 3. Mid Left Anterior Descending was treated with a Balloon, Drug Eluting Stent, and Balloon. 4. 1st Diagonal was treated with a Balloon. Recommendations * Continue current medical management and risk factor modification. Diagnostic RX Recommendation: PCI w/o planned CABG Ventriculography Ejection Fraction: 65.0 % Pressures Phase:Rest AO : 116 / 65 ( 85 ) @ 11:45:00 AM 118 / 66 ( 90 ) @ 11:46:00 AM 129 / 68 ( 91 ) @ 11:57:00 AM 161 / 75 ( 111 ) @ 12:26:00 PM 163 / 75 ( 111 ) @ 12:26:00 PM LV : 161 / -6 / 14 @ 12:24:00 PM 169 / -2 / 20 @ 12:25:00 PM 166 / -3 / 17 @ 12:26:00 PM Valves Phase:DefaultPhase AV : 7.0 @ 12:32:13 PM AV Mean Gradient: 7.0 @ 12:32:13 PM Clinical Evaluation EBL: 5mL-10mL Procedural Details Procedure Consent Obtained. Pre-Procedure Time Out. Identified patient by full name and date of as verbalized by the patient/guarantor. Does the consent match the physician's order: Yes. Accurate & Complete Informed Consent: Yes. Inpatient/Outpatient History & Physical on Chart: Yes. If H&P is completed, is and addenduem needed: No. Visualize and Verify Site with Patient/Guarantor: N/A. Relevant Radiology Images available: Yes. The risks, benefits, and alternatives of sedation and/or procedure were discussed by physician. The patient agrees to continue. Procedure started. [facility] Clinical Fraility Score: 5: Mildly Frail. Top Polisher Indications: Worsening Angina/abnormal stress test. Chest Pain Symptom Assessment: Typical Angina Symptoms. Cardiovascular Instability: No. Correct patient, site and procedure confirmed by cath team. PERRLA. Strong, equal hand oil deliverer bilaterally. Lungs clear x 5 lobes. IV Site on Arrival: 18 gauge in the right anticubital. IV Fluids: 0.9% NaCl at KVO. 0 mL infused prior to matlab developer. Pre Procedural Pulses: bilateral dorsalis pedis was 3+. Pre Procedural Pulses: bilateral posterior tibial was 3+. Pre Procedural Pulses: bilateral radial was 3+. Oxygen started at 2liters/min via nasal canula. right groin was prepped with chloroprep then draped in the usual sterile fashion. right radial was prepped with chloroprep then draped in the usual sterile fashion. Physician notified. Baseline sample Acquired. HR: 77 BPM. Patient's family unavailable. Equipment: 6F - Radial. Cardiac Cath Pack. ACIST Manifold Kit Model BT 2000. Heparinized Saline (2 units/mL), 1000 mL bag. Physician arrived. Physician scrubbed in. Immediate Pre-Procedure Time Out. Correct Patient: Yes; Correct Procedure: Yes; Correct Site: Yes; Correct Patient Position: Yes; Correct Supplies: Yes; Dried Flammable Prep: Yes; Blood Products Available: N/A;. Lidocaine 1% infiltrated to the right radial. Arterial access obtained. A 5 south african TIG catheter in over the exchange J wire. Multiple views taken of left coronary artery. Catheter redirected to the RCA. Multiple views taken of right coronary artery. Catheter removed over the exchange J wire. 6 south african CLS 3 guide catheter was inserted over the exchange J wire. ACT drawn. Results 213 seconds. Therapeutic limits - pre-heparin administration 90-150 seconds and monitoring heparin during a vascular procedure >250 seconds. Runthrough guidewire was advanced through the guide catheter to lesion in the mid LAD. A 2nd Runthrough guidewire was advanced through the guide catheter to lesion in the diaganol. Runthrough guidewire out of the diagonal. Inflation number : 1 A AB TREK 2.50X15 RX BALLOON was prepped and advanced across the Mid LAD , then inflated to 15 TRISTAN for 0:12 seconds. Balloon out. Inflation Number : 2 A ITZ Prince NITA 3.0X22 VICKI -Lot Number# [id number] was prepped and advanced across the Mid LAD. The stent was deployed at 14 TRISTAN for 0:12 seconds. Exp. . Stent balloon out over wire. Inflation number : 3 A MDT NC EUPHORA RX [id number] BALLOON was prepped and advanced across the Mid LAD , then inflated to 12 TRISTAN for 0:19 seconds. Inflation number: 4 The MDT NC EUPHORA RX [id number] BALLOON was reinflated across the Mid LAD, to 14 TRISTAN for 0:12 seconds. Balloon out. Results checked. Runthrough guidewire put of the LAD and redirected down the diagonal. Inflation number : 1 A AB MINI TREK 2.00X12 RX BALLOON was prepped and advanced across the 1st Diag , then inflated to 14 TRISTAN for 0:12 seconds. Balloon out. Results checked. Wire out. Guide catheter out over the exchange J wire. A 5 south african Angled Pig catheter in over the exchange J wire. EDP Sample taken: LV 161/-7,14; HR: 76 BPM; SpO2: 98%. LV gram performed in [place] @ 10 mL/second for a total of 30 mL. EDP Sample taken: LV 169/-3,20; HR: 50 BPM; SpO2: 98%. Pullback taken: LV 166/-4,17; AO 161/75(111); Mean: 7mmHg, Peak to Peak: 7mmHg, SEP: 22sec/min; HR: 71 BPM; SpO2: 98%. ACT drawn. Results 310 seconds. Therapeutic limits - pre-heparin administration 90-150 seconds and monitoring heparin during a vascular procedure >250 seconds. Catheter removed over the exchange J wire. Patient's family updated. A TR Band was successful obtaining hemostatsis at the Right Radial artery insertion site. Post Procedure: Pulses reassessed and unchanged. PERRLA. Strong, equal hand oil deliverer bilaterally. No VTE prophylaxis required. Medication's Wasted: Lidocaine 1% = 18 mL. Medication's Wasted: Nitro = 49.8 mg. Medication's Wasted: Heparin = 2000 units. Medication's Wasted: Other = Fentanyl 50 mcg. Total IV fluids: 43 mL. Post-op diagnosis: PCI of the Mid LAD s/p one VICKI/POBA of the diagonal. Complications: none. Estimated blood loss: 5mL-10mL. Responsiveness - Normal response to verbal stimuli; alert and oriented, PERRLA. Airway - Unaffected, no intervention required; spontaneous ventilation. Circulation: W/N/L, pulses unchanged. Nausea/Vomiting: No. Procedure completed. Patient transferred by bed to 1st floor. Vital chart was stopped. Access Site Site: Right Radial artery Sheath Size: 6 Fr Hemostasis Method: TR Band Hemostasis Success: Successful Procedure Medications Start: 11:05 AM Stop: 11:05 AM Medication: Benadryl Amount: 25 mg Route: I.V. Start: 11:30 AM Stop: 11:30 AM Medication: Versed Amount: 1 mg Route: I.V. Start: 11:30 AM Stop: 11:30 AM Medication: Fentanyl Amount: 50 mcg Route: I.V. Start: 11:37 AM Stop: 11:37 AM Medication: Versed Amount: 1 mg Route: I.V. Start: 11:39 AM Stop: 11:39 AM Medication: Nitrogylcerin Amount: 200 mcg Route: I.A. Start: 11:41 AM Stop: 11:41 AM Medication: Heparin Amount: 5000 units Route: I.V. Start: 12:01 PM Stop: 12:01 PM Medication: Heparin Amount: 4000 units Route: I.V. Start: 12:04 PM Stop: 12:04 PM Medication: Aggrastat 12.5 mg/250 mL Amount: 44 ml Route: I.V. bolus Start: 12:07 PM Stop: 12:07 PM Medication: Aggrastat 12.5 mg/250 mL Amount: 15.8 ml/hr Route: I.V. bolus Start: 12:29 PM Stop: 12:29 PM Medication: Plavix Amount: 600 mg Route: P.O. I, the attending physician, have reviewed and verified all procedure medications. Yes, all medications given per verbal order History/Risk Factors Hypertension: Yes Dyslipidemia: Yes Peripheral Arterial Disease (PAD): Yes Myocardial Infarction (OK): No Obesity: Yes Renal Disease: Yes Tobacco Use: Never Prior Interventions PCI: No CABG: No Valve Surgery: No Report Signatures Finalized by Winter Ramirez MD on 12/24/2024 09:16 AM
--- NOTE | 2024-12-12 11:09 | PC.SOCIAL ---
IMM Updated Updated pt on IMM. No questions voiced. Provided pt a copy. Initialed, dated, & timed copy in chart.
--- NOTE | 2024-12-12 11:31 | W.PM.OPSUD ---
Surgery/Procedure H&P Update DATE OF PROCEDURE: December 12, 2024 DATE H&P PERFORMED: 12/11/24 H&P UPDATE INFORMATION: I have reviewed H&P completed within last 30 days, I have examined patient prior to procedure and No changes to prior documentation PREOP DIAGNOSIS: Abnormal stress test PLANNED PROCEDURE: Operation Date: 12/07/24 12:00 Proposed Procedures p Dialysis Catheter Insertion(Not Applicable) - Brady Magana MD PATIENT REASSESSED PRIOR TO SEDATION, WITH NO CHANGE NOTED: Yes PHYSICAL EXAM: alert, oriented x 3, clear to auscultation bilaterally, regular rate & rhythm and operative site marked AIRWAY EVAL/ANESTHESIA PLAN: ASA II, Risks, benefits & alternatives of sedation and/or procedure discussed and Patient agrees to continue as planned ADDITIONAL INFORMATION: All risk-benefit and alternative for the procedure has been explained to the patient patient understand 2% risk of stroke major bleed, patient understand risk of minor bleeding oozing infection hematoma vascular surgery contrast induced nephropathy. Patient would like to proceed with it.
--- NOTE | 2024-12-12 11:46 | P.PN_ITS ---
Subjective 2 Subjective: Patient went for coronary angiogram today. Results are pending at this time. Chest pain-free. Plan to dialyze after angiogram. Underwent left-sided thoracentesis yesterday with 1100 cc fluid removed. Vitals/I&O/Wt Last Vital Signs Temp 98.2 F 12/12/24 07:47 Pulse 83 12/12/24 07:47 Resp 10 L 12/12/24 07:47 BP 159/79 12/12/24 07:47 Pulse Ox 97 12/12/24 07:47 O2 Del Method Nasal Cannula 12/12/24 07:47 O2 Flow Rate 2 12/12/24 07:47 12/11/24 12/12/24 12/12/24 22:59 06:59 14:59 Intake Total 660 / 1020 100 / 1120 Output Total 300 / 300 Balance 660 / 1020 100 / 1120 -300 / -300 Weight last 48 hrs Weight 87.815 kg Weight 88.36 kg Weight 89.8 kg Physical Exam 2 Narrative: General: No acute distress, AO x3 HEENT: PERRLA, pupils bilaterally equal and reactive, pallors not present: On room air. Chest: Normal vesicular breath sounds, no added sounds, equal good air entry bilaterally CVS: S1-S2 regular, no murmurs, no tachycardia, no gallops, no rubs Abdomen: Soft, nontender, no organomegaly, bowel sounds present Neuro: No focal deficits, no facial deformity, AO x3 Data 12/12/24 03:00 12/12/24 03:00 Micro: Microbiology 12/07/24 07:33 Blood Culture - Final Blood NO GROWTH AFTER 5 DAYS A&P Assessment and plan (1) ESRD (end stage renal disease) on dialysis: Worsening renal failure, inadequate peritoneal dialysis with anasarca, moderate pleural effusions, respiratory failure newly requiring 5 L of oxygen with shallow air entry, tachypnea. BUN noted up to 70, creatinine 10. Metabolic acidosis, anion gap 24.5. Bicarb 20. Additionally with demand cardiac ischemia, troponins 177. 2-hour troponin 168. With acute diastolic heart failure, NT proBNP 26,563. Reviewed vitals, CBC, INR, CMP, UA, influenza, COVID, RSV PCR, chest x-ray, CT, ER provider note, discussed with ER provider. She has also undergone thoracentesis, 1 L of fluid removed. Requesting analysis, culture. Appreciate nephrology consultation. Surgical consultation. Discussed with the surgeon, will be going for dialysis catheter placement. Pending further reassessment by nephrology to determine whether can still optimize peritoneal dialysis and resume this or whether it is not adequate for her needs. (2) Troponin level elevated: Moderate elevation of troponin, decompensated diastolic heart failure, likely demand ischemia secondary to severe fluid overload, failure of peritoneal dialysis, new respiratory failure, with new requirement of 3 L nasal cannula oxygen. Complete troponin EKG series. Reviewed prior echocardiogram. Monitor telemetry with risk of arrhythmia. I do not see a prior stress test, would benefit from stress test once able to obtain. (3) Pleural effusion, bilateral: (4) Supplemental oxygen dependent: (5) Hypoxia: (6) CHF (congestive heart failure): Qualifiers: Heart failure chronicity: unspecified Heart failure type: unspecified Qualified Code(s): I50.9 - Heart failure, unspecified (7) Diastolic heart failure: (8) Essential hypertension: (9) Klebsiella cystitis: (10) Peritoneal dialysis catheter in place: Plan UTI: Noted 25.40 WBC in urine. 5-10 squamous epithelial cells. Urine cultures requested. Follow-up. Will give ceftriaxone. PAD DM2: Had sliding scale insulin. Consistent carb diet once resumed. Diabetic retinopathy MDD, FRANCK, PTSD Inflammatory arthritis Seronegative spondyloarthropathy Other medical problems. Doing well today December 08, 2024 Underwent hemodialysis today. No new complaints. Urine culture showing gram- negative rods. Continue ceftriaxone 1 g IV every 24 hours. December 09, 2024 No acute interim events. No new complaints. Next HD planned for tomorrow. Urine culture showing Klebsiella oxytocin sensitive to ceftriaxone. Continue same for now. Likely transition back to PD over the next 24 hours. 12/10/2024 No acute interim events. Plan for dialysis today. Sensitive to ceftriaxone. We will continue at this time and complete 7-day course total. Patient may be able to transition back to PD next 24 hours. Plan for stress test in AM. Will need home O2 eval after dialysis today. Plan to discharge in a.m. after stress test unless further cardiac workup is warranted. Patient agreeable with plan above. 12/11/2024 Patient underwent stress testing today. Stress test is positive. Discussed with Dr. López this morning who read the stress test. I will be consulting cardiology for further management and workup. Discussed with Annemarie nurse practitioner. ? Continue hemodialysis while in hospital and switch back to PD when patient goes home. Awaiting cardiology recommendations. 12/12/2024 Patient will go for coronary angiogram today. Plan for dialysis after angiogram. Will await results and further recommendations from cardiology. Patient may continue back to PD when she goes home. PDMP PDMP Reviewed: Not Reviewed Attestations 2 Medical Necessity Statement*: Coronary angiogram today. Diagnoses ESRD (end stage renal disease) on dialysis N18.6; Z99.2 Troponin level elevated R79.89 Pleural effusion, bilateral J90 Supplemental oxygen dependent Z99.81 Hypoxia R09.02 Congestive heart failure, unspecified HF chronicity, unspecified heart failure type I50.9 Heart failure chronicity: unspecified Heart failure type: unspecified Diastolic heart failure I50.30 Essential hypertension I10 Klebsiella cystitis N30.90; B96.1 Peritoneal dialysis catheter in place Z99.2
--- NOTE | 2024-12-12 12:37 | PM.PROC ---
Procedure Note: Date of procedure: 12/12/24 Pre-procedure diagnosis: Abnormal stress test, heart failure Procedure: Left heart cath: Significant mid eccentric 70 to 80% LAD stenosis. Left main left circumflex and RCA has luminal irregularity without significant stenosis Left ventricle ejection fraction appeared to be normal Left ventricular end-diastolic pressure 13 mm PCI to mid LAD, per significant mid LAD stenosis, lesion was predilated with balloon angioplasty followed by drug-eluting stent postdilated with noncompliant balloon. Excellent angiographic result with LUTHER-3 flow noted at the end of the case. Patient tolerated procedure well and transferred back to CSU Plan Load patient with Plavix 600 mg once followed by 75 mg p.o. daily from tomorrow Continue aspirin statin beta-tonja Patient is going to have dialysis today post cath Aggrastat for 1 hour after loading with the Plavix Plan for possible discharge tomorrow Coding Level of Care Code Acute Code for Leanna Fwd
[2024-12-12 12:56] LABS: Glucose Point of Care 136 mg/dL (70-110)
--- NOTE | 2024-12-12 12:59 | P.PN_ITS ---
Subjective 2 Subjective: s/p LHC Medications: Reviewed: Yes Vitals/I&O/Wt Last Vital Signs Temp 97.5 F L 12/12/24 12:32 Pulse 79 12/12/24 12:32 Resp 16 12/12/24 12:32 BP 145/73 12/12/24 12:32 Pulse Ox 94 12/12/24 12:32 O2 Del Method Room Air 12/12/24 12:32 O2 Flow Rate 2 12/12/24 07:47 12/11/24 12/12/24 12/12/24 22:59 06:59 14:59 Intake Total 660 / 1020 100 / 1120 Output Total 300 / 300 Balance 660 / 1020 100 / 1120 -300 / -300 Weight last 48 hrs Weight 87.815 kg Weight 88.36 kg Weight 89.8 kg Physical Exam 2 Narrative: Patient is awake alert, PERRLA S1-S2 regular rate and rhythm per report Lungs with decreased breath sounds bilaterally per report Abdomen soft nontender Has pedal edema Data 12/12/24 03:00 12/12/24 03:00 Micro: Microbiology 12/07/24 07:33 Blood Culture - Final Blood NO GROWTH AFTER 5 DAYS A&P Assessment and plan (1) ESRD (end stage renal disease) on dialysis: 1. End-stage renal disease: Patient currently on peritoneal dialysis at home- cycler x 10 L, 2.5% and 1.5% dextrose solutions per patient. Currently she has presented with severe volume overload with bilateral pleural effusions and pulmonary edema and she is hypoxic. status post temporary HD catheter placement. s/p HD x 3 sessions , with ultrafiltration as tolerated s/p LHC and and plan for HD after LHC today plan to resume PD at home after DC 2. Acute on chronic respiratory failure, has volume overload/pulmonary edema, HD as above 3. Anemia: Will order EPO 4. History of hypertension, resume home meds 5.NSTEMI : S/P PCI to LAD PDMP PDMP Reviewed: Not Reviewed Attestations 2 Medical Necessity Statement*: per shona Coding Level of Care Code Acute Code for Chg Fwd Diagnoses ESRD (end stage renal disease) on dialysis N18.6; Z99.2
[2024-12-12] MEDS: heparin, porcine 1,000 unit/mL INJ 10 mL 1000 UNIT IV (13:30)
[2024-12-12] MEDS: heparin, porcine 1,000 unit/mL INJ 10 mL 10000 UNIT INTRACATH (15:28)
[2024-12-12 18:01] LABS: Glucose Point of Care 152 mg/dL (70-110)
[2024-12-12] MEDS: insulin lispro 100 unit/1 mL SUBCUT (18:15)
[2024-12-12] MEDS: cefTRIAXone 1,000 mg SDV 1000 MG IVP (20:18)
[2024-12-12 21:19] LABS: Glucose Point of Care 154 mg/dL (70-110)
[2024-12-13] VITALS: BP 143/79; PULSE 84; RESP 23; TEMP 37.4; O2SAT 94
[2024-12-13 04:00] VITALS: BP 161/85; PULSE 86; RESP 21; TEMP 36.8; O2SAT 94
[2024-12-13 04:09] LABS: Basophils # 0.1 10^3/uL (0.0-0.1); Basophils % 0.9 %; Eosinophils # 0.4 10^3/uL (0.0-0.8); Eosinophils % 4.3 %; Hematocrit 29.6 % (36-47); Lymphocytes # 2.2 10^3/uL (0.8-4.8); Mean Corpuscular HGB Conc 32.1 g/dL (30-55); Mean Corpuscular Hemoglobin 28.1 pg (27-33); Mean Corpuscular Volume 87.6 fl (85-98); Mean Platelet Volume 9.5 fL (7.4-10.4); Monocytes # 0.7 10^3/uL (0.2-0.9); Monocytes % 8.5 %; Neutrophils # 4.96 10^3/uL (1.8-7.7); Neutrophils % 58.6 %; Nucleated Red Blood Cells % 0 %; Platelet Count 355 10^3/cmm (157-399); Red Blood Count 3.38 10^6/uL (3.85-5.65); Red Cell Distribution Width 13.8 % (12.1-15.1); White Blood Count 8.46 10^3/uL (3.29-11.43)
[2024-12-13 04:27] LABS: Anion Gap 17.3 (5-19); Blood Urea Nitrogen 28 mg/dL (6-20); Calcium 8.4 mg/dL (8.5-10.5); Carbon Dioxide 26 mmol/L (22-29); Chloride 98 mmol/L (98-107); Creatinine Clr Calc Pharmacy 17.0517; Glomerular Filtration Rate 11.3 mL/min (90-130); Glucose 155 mg/dL (65-115); Osmolality Calculated 293 mOsm/kg (285-295); Potassium 4.3 mmol/L (3.5-5.1); Sodium 137 mmol/L (136-145)
[2024-12-13 06:16] LABS: Glucose Point of Care 130 mg/dL (70-110)
[2024-12-13 07:22] VITALS: BP 161/77; PULSE 81; RESP 15; TEMP 36.4; O2SAT 95
[2024-12-13] MEDS: polyethylene glycol 3350 Pkt 17 gm PO (08:47)
[2024-12-13] MEDS: clopidogrel 75 mg Tablet PO (08:48)
[2024-12-13] MEDS: sevelamer 800 mg Tablet PO ×2 (08:48→15:48)
[2024-12-13] MEDS: atorvastatin 40 mg Tablet PO (08:48)
[2024-12-13] MEDS: duloxetine 60 mg Capsule PO (08:48)
[2024-12-13] MEDS: amlodipine 10 mg Tablet PO (08:48)
[2024-12-13] MEDS: hyDRALAzine 50 mg Tablet PO ×2 (08:48→15:48)
[2024-12-13] MEDS: aspirin 325 mg Tablet PO (08:48)
[2024-12-13] MEDS: lisinopril 20 mg Tablet 40 MG PO (08:48)
[2024-12-13] MEDS: carvedilol 12.5 mg Tablet PO (08:48)
[2024-12-13] MEDS: isosorbide mononitrate ER 30 mg Tablet PO (08:48)
--- NOTE | 2024-12-13 09:56 | PM.CONSULT ---
Providers/Reason For Consult Consulting Physician/Specialty*: dr. wise gen surg Reason for Consult*: dialysis catheter removal Attending Physician: Kristine Torres MD Primary Care Provider: SEGUN Mulligan History of Present Illness History of Present Illness Lizy Evans is a 54 year old female with a tunneled dialysis catheter. Hospitalist reached out to have the dialysis catheter removed as patient will not needed and is being discharged today. Medications/Allergies Home Medications ?Medication ?Instructions ?Recorded ?Confirmed ?Last Taken ?Type omeprazole 20 mg capsule,delayed 20 mg PO DAILY 04/06/24 12/07/24 Unknown History release isosorbide mononitrate 30 mg 30 mg PO DAILY #90 tabs 04/09/24 12/07/24 12/07/24 Rx tablet,extended release 24 hr cetirizine 10 mg tablet 10 mg PO DAILY PRN Allergy Symptoms 05/23/24 12/07/24 Unknown History duloxetine 60 mg capsule,delayed 60 mg PO DAILY #90 caps 09/18/24 12/07/24 12/07/24 Rx release (Cymbalta) atorvastatin 40 mg tablet 40 mg PO DAILY #90 tabs 10/08/24 12/07/24 12/07/24 Rx calcitriol 0.25 mcg capsule 0.25 mcg PO DAILY 10/30/24 12/07/24 12/07/24 History carvedilol 12.5 mg tablet 12.5 mg PO BID 90 days #180 tabs 10/30/24 12/07/24 12/07/24 Rx hydralazine 50 mg tablet 50 mg PO TID 90 days #270 tabs 10/30/24 12/07/24 12/07/24 Rx lisinopril 40 mg tablet 40 mg PO DAILY #90 tabs 10/30/24 12/07/24 12/07/24 Rx vit B,C-folic ac 800 mcg-zinc 12.5 1 tab PO DAILY 10/30/24 12/07/24 12/07/24 History mg-selen-D3 2,000 unit-vit E tablet (RenaPlex-D) amlodipine 10 mg tablet 10 mg PO DAILY 12/07/24 12/07/24 12/07/24 History sevelamer carbonate 800 mg tablet 800 mg PO TID 12/07/24 12/07/24 Unknown History torsemide 100 mg tablet 100 mg PO DAILY 12/07/24 12/07/24 Unknown History aspirin 81 mg capsule 81 mg PO DAILY #30 caps 12/13/24 Unknown Rx clopidogrel 75 mg tablet 75 mg PO DAILY #30 tabs 12/13/24 Unknown Rx insulin lispro 100 unit/mL See Rx Instructions .Route 12/13/24 Unknown Rx subcutaneous solution (Humalog .COMPLEX #10 mL U-100 Insulin) Allergies Allergy/AdvReac Type Severity Reaction Status Date / Time venom-honey bee Allergy Severe ALGY-Redness Verified 12/07/24 11:34 of Skin marijuana (cannabis) Allergy Intermediate ADR-Nausea Verified 12/07/24 11:34 codeine AdvReac Severe ADR-Vomitin Verified 12/07/24 11:34 g morphine AdvReac Severe ADR-Vomitin Verified 12/07/24 11:34 g propoxyphene (From AdvReac Severe ADR-Vomitin Verified 12/07/24 11:34 Darvocet-N) g latex AdvReac Intermediate ALGY-Rash Verified 12/07/24 11:34 Current Medications Generic Name Dose Route Start Last Admin Trade Name Efrain PRN Reason Stop Dose Admin Amlodipine Besylate 10 mg 12/08/24 09:00 12/13/24 08:48 Amlodipine 10 Mg Tablet PO 10 mg DAILY ALMITA Administration Aspirin 325 mg 12/07/24 19:10 12/13/24 08:48 Aspirin 325 Mg Tablet PO 325 mg DAILY ALMITA Administration Atorvastatin Calcium 40 mg 12/08/24 09:00 12/13/24 08:48 Atorvastatin 40 Mg Tablet PO 40 mg DAILY ALMITA Administration Atorvastatin Calcium 40 mg 12/12/24 21:00 12/12/24 20:18 Atorvastatin 40 Mg Tablet PO 40 mg BEDTIME ALMITA Administration Carvedilol 12.5 mg 12/08/24 09:00 12/13/24 08:48 Carvedilol 12.5 Mg Tablet PO 12.5 mg BID ALMITA Administration Ceftriaxone Sodium 1,000 mg 12/07/24 20:00 12/12/24 20:18 Ceftriaxone 1,000 Mg Sdv IVP 1,000 mg Q24H ALMITA Administration Protocol Clopidogrel Bisulfate 75 mg 12/13/24 09:00 12/13/24 08:48 Clopidogrel 75 Mg Tablet PO 75 mg DAILY ALMITA Administration Duloxetine HCl 60 mg 12/08/24 09:00 12/13/24 08:48 Duloxetine 60 Mg Capsule PO 60 mg DAILY ALMITA Administration Hydralazine HCl 50 mg 12/07/24 21:00 12/13/24 08:48 Hydralazine 50 Mg Tablet PO 50 mg TID ALMITA Administration Insulin Human Lispro 0 unit 12/07/24 18:00 12/13/24 08:34 Insulin Lispro 100 Unit/1 Ml SUBCUT Not Given WM&BEDTIME ALMITA Protocol Isosorbide Mononitrate 30 mg 12/08/24 09:00 12/13/24 08:48 Isosorbide Mononitrate Er 30 Mg Tablet PO 30 mg DAILY ALMITA Administration Lisinopril 40 mg 12/08/24 09:00 12/13/24 08:48 Lisinopril 20 Mg Tablet PO 40 mg DAILY ALMITA Administration Ondansetron HCl 4 mg 12/07/24 11:38 12/11/24 08:15 Ondansetron 2 Mg/Ml Sdv 2 Ml IVP 4 mg Q15M PRN Administration Nausea/Vomiting PACU PHASE II Polyethylene Glycol 17 gm 12/10/24 15:55 12/13/24 08:47 Polyethylene Glycol 3350 Pkt 17 Gm PO 17 gm DAILY ALMITA Administration Sevelamer Carbonate 800 mg 12/07/24 21:00 12/13/24 08:48 Sevelamer 800 Mg Tablet PO 800 mg TID ALMITA Administration PFSH Acute PFSH: Medical History PAD (peripheral artery disease) Essential hypertension Peritoneal dialysis catheter in place Uncontrolled type 2 diabetes mellitus Pleural effusion Anemia of chronic disease ESRD (end stage renal disease) Diabetic neuropathy, type II diabetes mellitus Diabetic retinopathy Bereavement Major depressive disorder, recurrent, in partial remission Psychiatric care FH: total knee replacement left HLA B27 (HLA B27 positive) High risk medication use Inflammatory arthritis Seronegative spondyloarthropathy Chronic insomnia See subjective note below. Chronic pain See subjective note below. Chronic post-traumatic stress disorder (PTSD) Generalized anxiety disorder Major depressive disorder, recurrent, moderate Surgical History History of cataract extraction History of hysterectomy for benign disease History of tonsillectomy History of appendectomy History of left knee replacement Family History Mother Hypertension Diabetes Psychiatric illness Thyroid disease Father , in his 50's Family history of premature coronary artery disease Hyperlipidemia Myocardial infarction Brother Hypertension Sister No problems noted. Denies family history of Rheumatoid arthritis Lupus Social History Smoking and tobacco/nicotine status: unknown if used tobacco/nicotine Second hand smoke exposure: No Alcohol intake: never Substance/Drug Use: never Adopted: No Caregiver/support person: No Lives independently: No Household members: family service: No Current occupational status: unemployed and disabled Sexually active: Yes Do you think of yourself as: Straight/Heterosexual Current gender identity: Female Vitals/I&O/Wt Last Vital Signs Temp 97.6 F 12/13/24 07:22 Pulse 81 12/13/24 07:22 Resp 15 12/13/24 07:22 BP 161/77 12/13/24 07:22 Pulse Ox 95 12/13/24 07:22 O2 Del Method Room Air 12/13/24 07:22 O2 Flow Rate 2 12/12/24 07:47 12/12/24 12/13/24 12/13/24 22:59 06:59 14:59 Intake Total 1280 / 1400 100 / 1500 360 / 360 Output Total 2624 / 2924 0 / 2924 Balance -1344 / -1524 100 / -1424 360 / 360 Weight last 48 hrs Weight 185 lb 9.6 oz Weight 198 lb 10.184 oz Weight 193 lb 9.6 oz Physical Exam Narrative: Chest: Unlabored breathing room air. No lymphadenopathy. TDC in place Heart: Regular rate and rhythm. Abdomen: Soft, nontender, nondistended. No masses or lymphadenopathy. Data 12/13/24 03:52 12/13/24 03:52 Micro: Microbiology 12/11/24 15:29 Gram Stain - Final Pleural Fluid Body Fluid Culture - Preliminary 12/07/24 07:33 Blood Culture - Final Blood NO GROWTH AFTER 5 DAYS A&P Assessment and plan (1) ESRD (end stage renal disease) on dialysis: Plan 54-year-old female with tunnel dialysis catheter. Discussed risk and benefits and patient agrees to proceed with tunneled dialysis catheter removal. PDMP PDMP Reviewed: Not Reviewed Coding Level of Care Code 33306 Diagnoses ESRD (end stage renal disease) on dialysis N18.6; Z99.2 Time Spent (min) 30
--- NOTE | 2024-12-13 10:17 | PM.DCS ---
Discharge Providers Date of Admission: 12/07/24 10:57 Date of Discharge: December 13, 2024 Attending Provider at Admission: Sean Abdul Attending Provider at Discharge: Kristine Torres MD Primary Care Provider: SEGUN Mulligan Diagnoses at Discharge Discharge Diagnosis (1) ESRD (end stage renal disease) on dialysis: Status: Acute Reason for Visit Reason for Visit: SOB Hospital Course Hospital Course Patient has a history of end-stage renal disease and started on peritoneal dialysis in September 2024. She came in with shortness of breath decompensated heart failure respiratory failure moderate pleural effusions metabolic acidosis. Also had a UTI. She has completed 7 days of ceftriaxone. Temporary dialysis catheter was consulted however tunneled catheter was placed by general surgery. Patient was dialyzed during hospital stay and had thoracentesis done 2 times with a liter and 1100 cc removed bilaterally. Transudative effusion. She ended up having a stress test which was positive and underwent coronary angiogram and received 1 stent to LAD. At time of discharge it was decided to remove dialysis catheter however since patient is on aspirin Plavix and has a chance of failing peritoneal dialysis going forward discussion was made with surgeon and chiropractic doctor and the patient and it was decided to leave the hemodialysis catheter in place and to follow-up with her chiropractic doctor as an outpatient. If patient does not do well with peritoneal dialysis going forward she may switch to hemodialysis thereafter. Nephrology will be coordinating with patient's outpatient chiropractic doctor. Patient denies any chest pain at this time. Will be sent home on aspirin and Plavix. Cardiology on board. She is to follow-up with cardiology as an outpatient. Lastly during hospital stay she required minimal to no insulin therefore is being sent home on low-dose intensity sliding scale going forward. Physical Exam Narrative: General: No acute distress, AO x3 HEENT: PERRLA, pupils bilaterally equal and reactive, pallors not present: On room air. Chest: Normal vesicular breath sounds, no added sounds, equal good air entry bilaterally CVS: S1-S2 regular, no murmurs, no tachycardia, no gallops, no rubs Abdomen: Soft, nontender, bowel sounds present Neuro: No focal deficits, no facial deformity, AO x3 Discharge Data Studies Completed and Pending Completed Studies During Hospitalization Category Date Time Status CT angio chest PE protcl [id number] Stat Cat Scan 12/07/24 06:42 Completed CXRP [XR chest 1V portable [id number]] Stat Exams 12/07/24 12:56 Completed Cardiac Stress Test MIBI [Sestamibi Stress Test Request Exams 12/11/24 05:23 Draft ] Routine XR chest 1V portable [id number] Stat Exams 12/07/24 05:50 Completed XR chest 1V portable [id number] Stat Exams 12/07/24 11:42 Completed XR chest 1V portable [id number] Stat Exams 12/11/24 15:14 Completed XR chest 2V* [id number] Routine Exams 12/11/24 12:46 Completed NM zaheer perf SPECT r/s* [id number] Routine Nuc Med 12/11/24 05:24 Completed CV. echo complete* [id number] Routine Ultrasound 12/11/24 09:51 Completed US thoracentesis [id number] Routine Ultrasound 12/11/24 13:51 Completed US thoracentesis 27220 Stat Ultrasound 12/07/24 07:58 Completed Pending at discharge Category Date Time Status [employer] request for service Routine Exams 12/12/24 09:59 Taken Sestamibi Stress Test Request Routine Exams 12/10/24 11:47 Stop Req Blood Culture Stat Lab 12/07/24 07:33 Results Body Fluid Culture & GS Routine Lab 12/07/24 13:17 Results Radiology Impressions Chest CTA 12/07/24 06:42 IMPRESSION: 1. No pulmonary embolism. 2. No RIGHT heart strain. 3. Moderate to large bilateral nonloculated pleural effusions. 4. Moderate diffuse pulmonary edema. 5. Mild LEFT heart enlargement. C-Arm Fluoroscopy 12/07/24 13:08 IMPRESSION: Images obtained for intraoperative purposes. Thoracentesis Ultrasound 12/11/24 13:51 IMPRESSION: 1. LEFT thoracentesis yielding 1100 cc of fluid. 2. Chest radiograph to follow to evaluate for pneumothorax. Chest X-Ray 12/11/24 15:14 IMPRESSION: 1. No LEFT pneumothorax status post thoracentesis. 2. Minimal residual LEFT pleural effusion and/or atelectasis at the lung base. Laboratory Results WBC 8.46 10^3/uL (3.29-11.43) 12/13/24 03:52 RBC 3.38 10^6/uL (3.85-5.65) L 12/13/24 03:52 Hgb 9.50 g/dL (11.27-16.99) L 12/13/24 03:52 Hct 29.6 % (36-47) L 12/13/24 03:52 MCV 87.6 fl (85-98) 12/13/24 03:52 MCH 28.1 pg (27-33) 12/13/24 03:52 MCHC 32.1 g/dL (30-55) 12/13/24 03:52 RDW 13.8 % (12.1-15.1) 12/13/24 03:52 Plt Count 355 10^3/cmm (157-399) 12/13/24 03:52 MPV 9.5 fL (7.4-10.4) 12/13/24 03:52 Neut % (Auto) 58.6 % 12/13/24 03:52 Lymph % (Auto) 26.0 % 12/13/24 03:52 [place] % (Auto) 8.5 % 12/13/24 03:52 Eos % (Auto) 4.3 % 12/13/24 03:52 Baso % (Auto) 0.9 % 12/13/24 03:52 Neut # (Auto) 4.96 10^3/uL (1.8-7.7) 12/13/24 03:52 Lymph # (Auto) 2.2 10^3/uL (0.8-4.8) 12/13/24 03:52 [place] # (Auto) 0.7 10^3/uL (0.2-0.9) 12/13/24 03:52 Eos # (Auto) 0.4 10^3/uL (0.0-0.8) 12/13/24 03:52 Baso # (Auto) 0.1 10^3/uL (0.0-0.1) 12/13/24 03:52 Nucleated RBC % (auto) 0 % 12/13/24 03:52 Nucleated RBCs # 0.0 /100WBC 12/13/24 03:52 Differential Comment Cancelled 12/11/24 15:29 PT 13.80 SECONDS (12.1-14.9) 12/07/24 06:16 INR 0.99 (0.8-1.2) 12/07/24 06:16 APTT 40.6 SECONDS (23.9-36.7) H 12/07/24 06:16 Sodium 137 mmol/L (136-145) 12/13/24 03:52 Potassium 4.3 mmol/L (3.5-5.1) 12/13/24 03:52 Chloride 98 mmol/L (98-107) 12/13/24 03:52 Carbon Dioxide 26 mmol/L (22-29) 12/13/24 03:52 Anion Gap 17.3 (5-19) 12/13/24 03:52 BUN 28 mg/dL (6-20) H 12/13/24 03:52 Creatinine 4.1 mg/dL (0.5-0.9) H 12/13/24 03:52 GFR Calculation 11.3 mL/min (90-130) L 12/13/24 03:52 Glucose 155 mg/dL (65-115) H 12/13/24 03:52 POC Glucose 130 mg/dL (70-110) H 12/13/24 06:12 Calculated Osmolality 293 mOsm/kg (285-295) 12/13/24 03:52 Lactic Acid 0.5 mmol/L (0.5-2.2) 12/07/24 06:16 Calcium 8.4 mg/dL (8.5-10.5) L 12/13/24 03:52 Phosphorus 4.4 mg/dL (2.5-4.5) 12/08/24 02:35 Magnesium 2.0 mg/dL (1.7-2.3) 12/12/24 03:00 Total Bilirubin 0.2 mg/dL (0.15-1.2) 12/09/24 02:18 AST 13 U/L (0-32) 12/09/24 02:18 ALT < 5 U/L (0-33) 12/09/24 02:18 Alkaline Phosphatase 72 U/L (35-105) 12/09/24 02:18 Troponin T Baseline 177 ng/L (0-10) H* 12/07/24 06:16 Troponin T 120 Minute 168.2 ng/L (0-10) H 12/07/24 08:01 Delta Troponin T -8.8 ABS# (0-10) L 12/07/24 08:01 Troponin T Hi Sens 6Hr 165.1 ng/L (0-10) H 12/07/24 14:18 Troponin T Hi Sens 6Hr Delta -11.9 ng/L (0-12) L 12/07/24 14:18 NT-Pro-B Natriuret Pep 78121 pg/mL (0-125) H 12/07/24 06:16 Total Protein 6.4 g/dL (6.6-8.7) L 12/09/24 02:18 Albumin 2.9 g/dL (3.5-5.2) L 12/09/24 02:18 Globulin 3.5 g/dL (1.3-4.6) 12/09/24 02:18 Procalcitonin 0.18 ng/mL (0-0.5) 12/07/24 06:16 Urine Color Yellow (Yellow) 12/07/24 09:25 Urine Appearance Cloudy (CLEAR) A 12/07/24 09:25 Urine pH 6.0 (5-7) 12/07/24 09:25 Ur Specific [place] 1.013 (1.005-1.030) 12/07/24 09:25 Urine Protein 3+ (Negative) A 12/07/24 09:25 Urine Glucose (UA) Trace (Normal) H 12/07/24 09:25 Urine Ketones Negative (Negative) 12/07/24 09:25 Urine Blood 1+ (Negative) A 12/07/24 09:25 Urine Nitrate Negative (Negative) 12/07/24 09:25 Urine Bilirubin Negative (Negative) 12/07/24 09:25 Urine Urobilinogen 0.2 mg/dL (Negative) 12/07/24 09:25 Ur Leukocyte Esterase 3+ (Negative) A 12/07/24 09:25 Urine RBC 0-4 /hpf (0-2) H 12/07/24 09:25 Urine WBC 25-40 /hpf (0-5) H 12/07/24 09:25 Ur Squamous Epith Cells 5-10 /hpf (0-5) H 12/07/24 09:25 Amorphous Sediment Not Reportable 12/07/24 09:25 Urine Bacteria 2+ /hpf (NONE) H 12/07/24 09:25 Hyaline Casts 0-4 /lpf H 12/07/24 09:25 Fluid Color Cancelled 12/11/24 15:29 Fluid Appearance Cancelled 12/11/24 15:29 Fluid pH Cancelled 12/11/24 15:29 Fluid WBC Cancelled 12/11/24 15:29 Fluid RBC Cancelled 12/11/24 15:29 Fluid Tot Cell Count Cancelled 12/11/24 15:29 Fld Polynuclear WBCs # Cancelled 12/11/24 15:29 Fld Polynuclear WBCs % Cancelled 12/11/24 15:29 Fl Mononucl WBCs #(Auto) Cancelled 12/11/24 15:29 Fl Mononuclear % Auto Cancelled 12/11/24 15:29 Fld Crystal Laterality Cancelled 12/11/24 15:29 Fld Crystal Laterality Lt pleural fluid 2 12/11/24 15:29 Fluid LDH Cancelled 12/11/24 15:29 Pleural Color Yellow (Pale Yellow) H 12/11/24 15:29 Pleural Appearance Clear (CLEAR) 12/11/24 15: Pleural pH 7.00 (6.5-7.5) 12/11/24 15:29 Pleural WBC 109.000 /uL (0-1000) 12/11/24 15:29 Pleural RBC 0.000 10^3/uL 12/11/24 15:29 Pleural Mononuc # Auto 0.105 10^3/uL 12/11/24 15:29 Pleural Polynuclear % 4 % 12/11/24 15: Pleural Polynuclear # 0.004 10^3/uL 12/11/24 15:29 Pleural Mononuclear % 96 % 12/11/24 15:29 Pleural Other Cells Lt Not Reportable 12/11/24 15:29 Pleural Total Protein 4.1 g/dL 12/11/24 15:29 Pleural Total Protein Cancelled 12/11/24 15:29 Pleural Albumin 2.4 g/dL 12/11/24 15:29 Pleural LDH 145 U/L 12/11/24 15:29 Pleural Glucose 168.0 mg/dL 12/11/24 15:29 Pleural Triglycerides 49 mg/dL 12/11/24 15:29 Hep Bs Antigen Non-reactive (Nonreactive) 12/07/24 06:16 Hep Bs Antibody > 1000.0 (11.5-1000) H 12/07/24 06:16 Influenza A (PCR) Negative (Negative) 12/07/24 06:17 Influenza Type B (PCR) Negative (Negative) 12/07/24 06:17 RSV (PCR) Negative (Negative) 12/07/24 06:17 SARS-CoV-2 (PCR) Negative (Negative) 12/07/24 06:17 Pathology Message Yes 12/11/24 15:29 Vitals Last Vital Signs Temp 97.6 F 12/13/24 07:22 Pulse 81 12/13/24 07:22 Resp 15 12/13/24 07:22 BP 161/77 12/13/24 07:22 Pulse Ox 95 12/13/24 07:22 O2 Del Method Room Air 12/13/24 07:22 O2 Flow Rate 2 12/12/24 07:47 Discharge Plan Discharge Patient Disposition: Home Condition: Stable Prescriptions: New clopidogrel 75 mg Tablet 75 mg PO DAILY Qty: 30 1RF aspirin 81 mg capsule 81 mg PO DAILY Qty: 30 1RF insulin lispro [Humalog U-100 Insulin] 100 unit/mL Solution See Rx Instructions .ROUTE .COMPLEX Qty: 10 0RF Rx Instructions: 141-180 mg/dl 2 unit/SQ 181-220 mg/dl 4 units/SQ 221-260 mg/dl 6 units/SQ 261-300 mg/dl 8 units/SQ 301-350 mg/dl 10 units/SQ 351-400 mg/dl 12 units/SQ greater than 400 mg/dl 14 units/SQ Continued atorvastatin 40 mg tablet 40 mg PO DAILY Qty: 90 1RF Rx Instructions: take one tab at 5pm duloxetine [Cymbalta] 60 mg capsule,delayed release(DR/EC) 60 mg PO DAILY Qty: 90 0RF Rx Instructions: Take one capsule by mouth every day calcitriol 0.25 mcg capsule 0.25 mcg PO DAILY RenaPlex-D 800 mcg-12.5 mg -2,000 unit tablet 1 tab PO DAILY carvedilol 12.5 mg tablet 12.5 mg PO BID 90 Days Qty: 180 0RF hydralazine 50 mg tablet 50 mg PO TID 90 Days Qty: 270 0RF lisinopril 40 mg tablet 40 mg PO DAILY Qty: 90 0RF cetirizine 10 mg Tablet 10 mg PO DAILY PRN (Reason: Allergy Symptoms) torsemide 100 mg tablet 100 mg PO DAILY sevelamer carbonate 800 mg tablet 800 mg PO TID amlodipine 10 mg tablet 10 mg PO DAILY Rx Instructions: Take 1 tablet by mouth once daily omeprazole 20 mg Capsule,Delayed Release(Dr/Ec) 20 mg PO DAILY isosorbide mononitrate 30 mg tablet extended release 24 hr 30 mg PO DAILY Qty: 90 4RF Discontinued Humulin R U-500 (Conc) Kwikpen 500 unit/mL (3 mL) insulin pen See Rx Instructions .ROUTE .COMPLEX Qty: 48 1RF Dose Instruction: INJECT 40 UNITS SUBCUTANEOUSLY WITH BREAKFAST, INJECT 100 UNITS WITH LUNCH AND INJECT 100 UNITS WITH SUPPER Rx Instructions: INJECT 40 UNITS SUBCUTANEOUSLY WITH BREAKFAST, INJECT 100 UNITS WITH LUNCH AND INJECT 100 UNITS WITH SUPPER Discharge Orders: Discharge Order (Routine); Ordered 12/13/24 Ordered By: Kristine Torres Referrals: Annemarie Flores NP [Nurse Practitioner] - 12/26/24 4:00 pm Winter Ramirez MD [Physician] - 01/09/25 1:30 pm Joellen Hill FNP [Primary Care Provider] - 12/18/24 1:20 pm Discharge Diet: Cardiac and Diabetic Discharge Activity: Limit activity as instructed Patient Instructions: Aspirin (By mouth), Clopidogrel (By mouth), Insulin Lispro (By injection) (Humalog, Humalog Pen, Lispro-PFC,..., Heart Failure (DC), Coronary Angioplasty (DC), Acute Wound Care (DC), Hypoxia (GEN), Cardiac Stress Test (GEN), Opioid Safety, Post Anesthesia Care Activity Restrictions/Additional Instructions: Please continue on peritoneal dialysis after discharge. Discharge Attestations Time Spent in Discharge Care*: greater than 30 min Quality Metrics Clinical Quality Measures [ No reported AMI, CVA or VTE this stay] Coding Level of Care Code 63777 Total time (in minutes) for Discharge: 40 Diagnoses ESRD (end stage renal disease) on dialysis N18.6; Z99.2
--- NOTE | 2024-12-13 12:04 | PC.NURSE ---
Patient taken to surgery to have tunneled catheter removed.
--- NOTE | 2024-12-13 13:23 | PM.MISC ---
Miscellaneous Note Note: Case cancelled. Patient will keep TDC as a backup to PD.
--- NOTE | 2024-12-13 14:20 | P.PN_ITS ---
<Statement entered by Winter Ramirez MD - 12/13/24 23:54> Patient was evaluated and cared for in conjunction with an advanced practice practitioner. I personally have not examined the patient today, I reviewed the chart and all pertinent data including imaging, telemetry, and laboratory results. I discussed the patient in detail with the advanced practice practitioner. Please see their note for complete H&P testing result and agreed upon plan of care for the patient. Subjective 2 Subjective: Patient had recent stent to the LAD yesterday. She has no complaints at this time. Vitals/I&O/Wt Last Vital Signs Temp 97.6 F 12/13/24 07:22 Pulse 81 12/13/24 07:22 Resp 15 12/13/24 07:22 BP 161/77 12/13/24 07:22 Pulse Ox 95 12/13/24 07:22 O2 Del Method Room Air 12/13/24 07:22 O2 Flow Rate 2 12/12/24 07:47 12/12/24 12/13/24 12/13/24 22:59 06:59 14:59 Intake Total 1280 / 1400 100 / 1500 360 / 360 Output Total 2624 / 2924 0 / 2924 Balance -1344 / -1524 100 / -1424 360 / 360 Weight last 48 hrs Weight 185 lb 9.6 oz Weight 198 lb 10.184 oz Weight 193 lb 9.6 oz Physical Exam 2 Narrative: General: No apparent distress, healthy appearing, well nourished HENMT: normoceophalic Eye: PERRL Neck: No carotid bruit bilaterally Muskuloskeletal: Full ROM Lymphatic: no lymphedema noted Respiratory: Normal respiratory effort, clear to auscultation bilaterally throughout all lung [place], no use of accessory muscles Cardio: No JVD, regular rate, regular rhythm, S1 S2 normal, no murmurs, peripheral pulses 2+ radial palpated bilaterally GI: Normal to inspection, nondistended Extremities: Full ROM, normal, normal capillary refill, no cyanosis or edema Neuro: Alert and oriented x4, no focal motor deficits Psych: Affect normal, denies suicidal ideation, mental status grossly normal Skin: No rashes or lesions noted, no wounds Data 12/13/24 03:52 12/13/24 03:52 Micro: Microbiology 12/11/24 15:29 Gram Stain - Final Pleural Fluid Body Fluid Culture - Preliminary A&P Assessment and plan (1) Essential hypertension: (2) Hyperlipidemia: (3) PAD (peripheral artery disease): (4) CHF (congestive heart failure): Qualifiers: Heart failure chronicity: unspecified Heart failure type: unspecified Qualified Code(s): I50.9 - Heart failure, unspecified (5) Troponin level elevated: (6) Diastolic heart failure: (7) Abnormal stress test: Plan Patient may be discharged from a cardiology standpoint. She should continue aspirin and Plavix at least for 1 year without discontinuing. Recommend continue Coreg 12.5 twice daily hydralazine 50 3 times daily and lisinopril 40 mg. Follow-up in the clinic in 7 to 10 days. Post cath restriction education was given to the patient. PDMP PDMP Reviewed: Not Reviewed Attestations 2 Medical Necessity Statement*: May be discharged from cardiology standpoint. Coding Level of Care Code Acute Code for [facility] Fwd Diagnoses Essential hypertension I10 Hyperlipidemia E78.5 PAD (peripheral artery disease) I73.9 Congestive heart failure, unspecified HF chronicity, unspecified heart failure type I50.9 Heart failure chronicity: unspecified Heart failure type: unspecified Troponin level elevated R79.89 Diastolic heart failure I50.30 Abnormal stress test R94.39
--- NOTE | 2024-12-13 17:08 | PC.NURSE ---
Patient discharged to home. Instruction provided regarding follow up needs and medications with changes. patient verbalized complete understanding. Patient taken by wheelchair to private vehicle. No distress observed.
--- NOTE | 2024-12-13 18:42 | P.PN_ITS ---
Subjective 2 Subjective: no new complaimts Medications: Reviewed: Yes Vitals/I&O/Wt Last Vital Signs Temp 97.6 F 12/13/24 07:22 Pulse 81 12/13/24 07:22 Resp 15 12/13/24 07:22 BP 161/77 12/13/24 07:22 Pulse Ox 95 12/13/24 07:22 O2 Del Method Room Air 12/13/24 07:22 O2 Flow Rate 2 12/12/24 07:47 12/13/24 12/13/24 12/13/24 06:59 14:59 22:59 Intake Total 100 / 1500 360 / 360 Output Total 0 / 2924 Balance 100 / -1424 360 / 360 Weight last 48 hrs Weight 84.187 kg Weight 90.1 kg Weight 87.815 kg Physical Exam 2 Narrative: Patient is awake alert, PERRLA S1-S2 regular rate and rhythm per report Lungs with decreased breath sounds bilaterally per report Abdomen soft nontender Has pedal edema Data 12/13/24 03:52 12/13/24 03:52 Micro: Microbiology 12/08/24 16:17 Blood Culture - Final Blood NO GROWTH AFTER 5 DAYS 12/11/24 15:29 Gram Stain - Final Pleural Fluid Body Fluid Culture - Preliminary A&P Assessment and plan (1) ESRD (end stage renal disease) on dialysis: 1. End-stage renal disease: Patient currently on peritoneal dialysis at home- cycler x 10 L, 2.5% and 1.5% dextrose solutions per patient. Currently she has presented with severe volume overload with bilateral pleural effusions and pulmonary edema and she is hypoxic. status post temporary HD catheter placement. s/p HD x 3 sessions , with ultrafiltration as tolerated s/p [facility] plan to resume PD at home after DC , after discussing with patient and hospitalist we have decided to keep the tunneled catheter as patient may not be getting adequate ultrafiltration with PD. Plan to resume PD after discharge and if PD works well in 2 to 3 weeks patient will need tunneled catheter removed as outpatient, if not patient will switch to hemodialysis via tunneled catheter. All the above plan was discussed with her PD clinic RN and Dr. Gonzales office. 2. Acute on chronic respiratory failure, has volume overload/pulmonary edema, HD as above 3. Anemia: Will order EPO 4. History of hypertension, resume home meds 5.NSTEMI : S/P PCI to LAD PDMP PDMP Reviewed: Not Reviewed Attestations 2 Medical Necessity Statement*: Per medicine team Coding Level of Care Code Acute Code for [facility] Fwd Diagnoses ESRD (end stage renal disease) on dialysis N18.6; Z99.2
== END 2024-12-13 17:12 | disposition home or self-care (01) | DRG 321 ==
LOC: ER 09:05 → ER IP 10:58 → CSU 11:48
PROVIDERS: Hospitalist; Internal Medicine Cardiovascular Disease; Student in an Organized Health Care Education/Training Program; Surgery; Admitting Provider Internal Medicine; Emergency Provider Family Medicine; PCP Registered Nurse; Visit Provider Internal Medicine
PROC: 0JH63XZ Insertion of Tunneled Vascular Access Device into Chest Subcutaneous Tissue and Fascia, Percutaneous Approach (ICD-10-PCS; principal; 2024-12-07 12:00)
PROC: 027034Z Dilation of Coronary Artery, One Artery with Drug-eluting Intraluminal Device, Percutaneous Approach (ICD-10-PCS; principal; 2024-12-12 11:00)
PROC: 027034Z Dilation of Coronary Artery, One Artery with Drug-eluting Intraluminal Device, Percutaneous Approach (ICD-10-PCS; 2024-12-12 11:00)
DX: I13.2 Hypertensive heart and chronic kidney disease with heart failure and with stage 5 chronic kidney disease, or end stage renal disease (principal); I21.4 Non-ST elevation (NSTEMI) myocardial infarction; I50.33 Acute on chronic diastolic (congestive) heart failure; J96.21 Acute and chronic respiratory failure with hypoxia; N18.6 End stage renal disease; E87.20 Acidosis, unspecified; I24.89 Other forms of acute ischemic heart disease; J91.8 Pleural effusion in other conditions classified elsewhere; E11.51 Type 2 diabetes mellitus with diabetic peripheral angiopathy without gangrene; E11.40 Type 2 diabetes mellitus with diabetic neuropathy, unspecified; E11.319 Type 2 diabetes mellitus with unspecified diabetic retinopathy without macular edema; E11.22 Type 2 diabetes mellitus with diabetic chronic kidney disease; F43.12 Post-traumatic stress disorder, chronic; F41.1 Generalized anxiety disorder; F33.41 Major depressive disorder, recurrent, in partial remission; M19.90 Unspecified osteoarthritis, unspecified site; D63.1 Anemia in chronic kidney disease; B96.89 Other specified bacterial agents as the cause of diseases classified elsewhere; N30.90 Cystitis, unspecified without hematuria; Z82.49 Family history of ischemic heart disease and other diseases of the circulatory system; R11.10 Vomiting, unspecified; I25.10 Atherosclerotic heart disease of native coronary artery without angina pectoris; Z79.899 Other long term (current) drug therapy; Z88.5 Allergy status to narcotic agent; Z96.652 Presence of left artificial knee joint; Z99.2 Dependence on renal dialysis; Z11.52 Encounter for screening for COVID-19; Z79.4 Long term (current) use of insulin; Z88.8 Allergy status to other drugs, medicaments and biological substances; Z91.040 Latex allergy status; Z90.710 Acquired absence of both cervix and uterus; M46.90 Unspecified inflammatory spondylopathy, site unspecified
CPT/HCPCS: 32555; 36415; 36416; 71045; 71046; 71275; 76000; 77001; 78452; 80048; 80053; 80503; 81001; 82042; 82945; 82962; 83605; 83615; 83735; 83880; 83986; 84100; 84145; 84157; 84478; 84484; 85025; 85347; 85610; 85730; 86706; 87040; 87070; 87075; 87077; 87086; 87186; 87205; 87340; 87637; 89050; 90935; 92921; 93005; 93017; 93306; 93458; 96372; 96374; 96375; 96376; 99152; 99153; 99285; A9270; A9500; C1725; C1750; C1769; C1874; C1887; C1894; C9600; J0690; J0696; J1200; J1644; J1815; J1940; J2250; J2405; J2704; J2785; J3010; J3490; J7030; J7050; Q3014; Q9967

== ENCOUNTER → 2024-12-18 15:47 | Outpatient (BNVA) | payer MEDICARE, MEDICAID, SELFPAY | PROVIDERS: PCP Registered Nurse; Visit Provider Registered Nurse | DX: N39.0 Urinary tract infection, site not specified (principal) | CPT/HCPCS: 81000; 87086 ==

== ENCOUNTER → 2025-01-09 12:55 | Outpatient (BNVA) | payer MEDICARE, SELFPAY | PROVIDERS: PCP Registered Nurse; Visit Provider Internal Medicine Cardiovascular Disease | DX: Z09 Encounter for follow-up examination after completed treatment for conditions other than malignant neoplasm (principal); I25.10 Atherosclerotic heart disease of native coronary artery without angina pectoris; I13.2 Hypertensive heart and chronic kidney disease with heart failure and with stage 5 chronic kidney disease, or end stage renal disease; E11.22 Type 2 diabetes mellitus with diabetic chronic kidney disease; E11.65 Type 2 diabetes mellitus with hyperglycemia; N18.6 End stage renal disease; I50.30 Unspecified diastolic (congestive) heart failure; Z79.4 Long term (current) use of insulin; E78.5 Hyperlipidemia, unspecified; Z95.5 Presence of coronary angioplasty implant and graft | CPT/HCPCS: 99214 ==

== ENCOUNTER → 2025-02-15 10:36 | Outpatient (BNVA) | payer MEDICARE, SELFPAY | PROVIDERS: PCP Registered Nurse; Visit Provider Internal Medicine | DX: E11.319 Type 2 diabetes mellitus with unspecified diabetic retinopathy without macular edema (principal); E11.65 Type 2 diabetes mellitus with hyperglycemia; E78.5 Hyperlipidemia, unspecified | CPT/HCPCS: 99214 ==

== ENCOUNTER → 2025-03-20 08:59 | Outpatient (BNVA) | payer MEDICARE, SELFPAY | PROVIDERS: PCP Registered Nurse; Visit Provider Nurse Practitioner Family | DX: I13.0 Hypertensive heart and chronic kidney disease with heart failure and stage 1 through stage 4 chronic kidney disease, or unspecified chronic kidney disease (principal); N18.4 Chronic kidney disease, stage 4 (severe); I50.30 Unspecified diastolic (congestive) heart failure; Z99.2 Dependence on renal dialysis; I25.10 Atherosclerotic heart disease of native coronary artery without angina pectoris; E78.5 Hyperlipidemia, unspecified; Z79.02 Long term (current) use of antithrombotics/antiplatelets; Z79.82 Long term (current) use of aspirin; R06.02 Shortness of breath; Q25.46 Tortuous aortic arch | CPT/HCPCS: 71046; 99214 ==

== ENCOUNTER 2025-03-21 14:00 | Outpatient (CLI) | payer MEDICARE, MEDICAID, SELFPAY | END 2025-03-21 14:01 | disposition home or self-care (01) | LOC: LAB 03-22 09:18 | PROVIDERS: PCP Registered Nurse; Visit Provider Registered Nurse | DX: R05.9 Cough, unspecified (principal) | CPT/HCPCS: 80048; 85025 ==

== ENCOUNTER → 2025-04-18 09:46 | Outpatient (BNVA) | payer OTHER, MEDICAID, SELFPAY | PROVIDERS: PCP Registered Nurse; Visit Provider Podiatrist Foot & Ankle Surgery | DX: B35.1 Tinea unguium (principal); E11.40 Type 2 diabetes mellitus with diabetic neuropathy, unspecified; Z79.4 Long term (current) use of insulin; G62.9 Polyneuropathy, unspecified; I73.9 Peripheral vascular disease, unspecified | CPT/HCPCS: 99213 ==

== ENCOUNTER 2025-05-07 12:16 | Outpatient (CLI) | payer OTHER, MEDICAID, SELFPAY ==
--- NOTE | 2025-05-07 12:32 | XRR_ITS ---
PROCEDURE INFORMATION: Exam: XR Chest Exam date and time: 05/07/2025 12:37 PM Age: 54 years old Clinical indication: Shortness of breath; Prior surgery; Surgery date: 6+ months; Surgery type: Stent, dialysis, thoracentesis; R/O pleural effusion. Cough and SOB x1 week TECHNIQUE: Imaging protocol: Radiologic exam of the chest. Views: 2 views. COMPARISON: 1. CR XR chest 2V* [id number] 03/20/2025 9:55 AM 2. CR XR chest 1V portable [id number] 12/11/2024 3:34 PM FINDINGS: Tubes, catheters and devices: Dialysis catheter in place via a right internal jugular approach. The distal tip extends into the right atrium. Position is unchanged. Lungs: Bilateral low lung volumes. Patchy airspace opacity within the right middle lobe more likely corresponds to atelectatic change or scarring. The lungs are otherwise clear. Pleural spaces: Previously seen bilateral pleural effusions have near completely resolved. Probable persistent very small right posterior pleural effusion. No pneumothorax. Heart/Mediastinum: Heart size is upper limits for normal. The mediastinal contours are smooth. Coronary artery stent in place. Vasculature: Carotid artery calcifications are present bilaterally. Bones/joints: Multilevel degenerative changes are present throughout the spine. XR/XR chest 2V* [id number] IMPRESSION: Previously seen bilateral pleural effusions have near completely resolved. Probable persistent trace posterior pleural effusion is present on the right. There is no large pleural effusion. No CHF. No pneumothorax. Patchy airspace opacity within the right middle lobe more likely corresponds to atelectatic change or scarring. The lungs are otherwise clear.
== END 2025-05-07 12:17 | disposition home or self-care (01) ==
PROVIDERS: PCP Registered Nurse; Visit Provider Internal Medicine Nephrology
DX: R06.02 Shortness of breath (principal); R05.9 Cough, unspecified
CPT/HCPCS: 71046

== ENCOUNTER 2025-05-22 07:46 | Outpatient (CLI) | payer OTHER, MEDICAID, SELFPAY ==
--- NOTE | 2025-05-22 07:45 | CT_ITS ---
WS: [id number] CT chest wo con [id number] HISTORY: need more recent scan TECHNIQUE: Axial imaging performed through the thorax. Coronal and sagittal reformats are submitted. All CT scans at [facility] use at least one of these dose optimization techniques: automated exposure control; mA and/or kV adjustment per patient size (includes targeted exams where dose is matched to clinical indication); or iterative reconstruction. CONTRAST: None DLP: 273.12 mGy.cm COMPARISON: CT angiogram 12/07/2024, chest radiograph 05/07/2025 Lungs and central airway: Improved region with less edema as compared to 12/07/2024. There is still mild hazy attenuation throughout both lungs. Subsegmental atelectasis in the RIGHT middle lobe. No dense consolidation. No pneumothorax. Pleura: Moderate size layering RIGHT pleural effusion. Effusion has decreased in size since 12/07/2024. No LEFT pleural effusion. Heart and pericardium: Mild cardiomegaly. Scattered coronary artery calcifications. No significant pericardial effusion. Mediastinum and rj: No mediastinal or hilar enlarged lymph nodes identified. Vessels: RIGHT IJ dialysis catheter has been placed. The distal tip is near the SVC junction with the RIGHT atrium. The more proximal tip is closer to the cavoatrial junction. Mild atherosclerosis aorta. Normal size pulmonary artery. Chest wall and lower neck: No soft tissue masses. Upper abdomen: Dense calcifications in the splenic artery. Liver attenuation appears increased by Hounsfield units remain below 70. No adrenal mass. Osseous structures: Mild increase in thoracic kyphosis. CT/CT chest wo con [id number] IMPRESSION: 1. Moderate size layering RIGHT pleural effusion. 2. Subsegmental atelectasis RIGHT middle lobe. Improved aeration compared to t he most recent studies. 3. RIGHT IJ dialysis catheter with the distal tip terminating near the junctio n of the SVC with the atrium. 4. No mediastinal or hilar adenopathy.
== END 2025-05-22 07:47 | disposition home or self-care (01) ==
LOC: RAD 07:48
PROVIDERS: PCP Registered Nurse; Visit Provider Internal Medicine
DX: J90 Pleural effusion, not elsewhere classified (principal); J98.11 Atelectasis
CPT/HCPCS: 71250

== ENCOUNTER → 2025-06-10 15:25 | Outpatient (BNVA) | payer MEDICARE, SELFPAY | PROVIDERS: PCP Registered Nurse; Visit Provider Internal Medicine | DX: J90 Pleural effusion, not elsewhere classified (principal); I13.2 Hypertensive heart and chronic kidney disease with heart failure and with stage 5 chronic kidney disease, or end stage renal disease; N18.6 End stage renal disease; E11.22 Type 2 diabetes mellitus with diabetic chronic kidney disease; I50.9 Heart failure, unspecified; Z99.2 Dependence on renal dialysis; Z79.4 Long term (current) use of insulin | CPT/HCPCS: 99215 ==

== ENCOUNTER 2025-06-27 12:00 | Inpatient (IN) | payer OTHER, MEDICAID, SELFPAY ==
[2025-06-27] VITALS (38 sets, daily range): BP systolic 135–229; BP diastolic 71–154; PULSE 68–102; RESP 10–25; TEMP 36.3–37.1; O2SAT 88–100; BMI 31.4
--- NOTE | 2025-06-27 10:24 | W.PM.OPSUD ---
Surgery/Procedure H&P Update DATE OF PROCEDURE: June 27, 2025 DATE H&P PERFORMED: 06/10/25 CHANGES TO PREVIOUS DOCUMENTATION: Patient was seen and examined. No significant clinical changes since she was seen by me. Patient continues to have shortness of breath related to her right pleural effusion. I performed the ultrasound at the bedside and patient continues to have large right pleural effusion. Patient had been holding her Plavix for the past 6 days. We discussed extensively the risks and benefits of the procedure and she agreed to proceed forward. The risks that were discussed include bleeding, lung injury, collapsed lung, catheter malfunction, catheter infection, pain, tolerated lung inflammation, unsuccessful pleurodesis, cardiovascular collapse and . PLANNED PROCEDURE: Operation Date: 06/27/25 09:00 Proposed Procedures p Thorascopy [id number] J90(Not Applicable) - Geri Villarreal MD
[2025-06-27] MEDS: ceFAZolin 2,000 mg SDV 2000 MG IVP (10:30)
[2025-06-27] MEDS: lidocaine-epi 1% 20 mL INJ INJECTION (11:50)
[2025-06-27] MEDS: TALC 4 GM 6 GM INTRAPLEUR (11:50)
--- NOTE | 2025-06-27 12:10 | XRR_ITS ---
PROCEDURE INFORMATION: Exam: XR Chest Exam date and time: 06/27/2025 12:10 PM Age: 54 years old Clinical indication: Device placement; Other: Post bronch; Prior surgery; Surgery date: Post-operative (0-2 days); Additional info: Post op TECHNIQUE: Imaging protocol: Radiologic exam of the chest. Views: 1 view. COMPARISON: 1. CT chest wo con [id number] 05/22/2025 7:56 AM 2. CR XR chest 1V portable [id number] 04/29/2025 6:23 PM 3. CR XR chest 1V portable [id number] 04/30/2025 10:56 AM 4. CR XR chest 2V* [id number] 05/07/2025 12:37 PM FINDINGS: Tubes, catheters and devices: Right-sided central venous line similar to prior studies. Lungs: Mild interstitial prominence. Patchy hazy opacities portions of lungs bilaterally. Suggestion of mild peribronchial cuffing, bronchial/bronchiolar wall thickening. Pleural spaces: Evidence of small pneumothorax upper-outer right hemithorax/apical region. No large pleural effusion seen. Heart/Mediastinum: Stable heart size. Coronary artery calcification. Vasculature: Atherosclerotic disease. Evidence of carotid artery calcification of the neck bilaterally. Bones/joints: Degenerative changes spine. Other findings: Patient appears rotated slightly to the right. XR/XR chest 1V portable [id number] IMPRESSION: 1. Evidence of small pneumothorax. 2. Mild interstitial prominence. Patchy hazy opacities portions of lungs bilaterally. Suggestion of mild peribronchial cuffing, bronchial/bronchiolar wall thickening. 3. Follow-up recommended.
--- NOTE | 2025-06-27 12:26 | P.BOP_ITS ---
Interventional Pulmonary Immediate Brief Operative Note: * Date of Procedure:?June 27, 2025 * Preoperative Diagnosis:?Recurrent right pleural effusion * Postoperative Diagnosis:?[Same as pre-op] * Procedures Performed: Right thoracoscopy, pleural biopsy, pleurodesis and PleurX placement * Surgeon / Match Marker:?Geri Villarreal MD * Anesthesia: * ?Monitored anesthesia care (MAC) * Findings: 2+ status on the diaphragm otherwise no significant pleural or lung abnormalities. We drained 1500 cc of yellow fluid. * Estimated Blood Loss (EBL):?Less than 20 cc * Specimens: * Pleural fluid analysis for chemistry, micro, cell count with differential and cytology * Pleural biopsy * Complications:?None * Disposition:?Transferred to PACU in stable condition. Geri Villarreal MD, FACP Interventional Pulmonogist
--- NOTE | 2025-06-27 12:26 | W.PM.BPON ---
Interventional Pulmonary Immediate Brief Operative Note: Date of Procedure:?June 27, 2025 Preoperative Diagnosis:?Recurrent right pleural effusion Postoperative Diagnosis:?[Same as pre-op] Procedures Performed: Right thoracoscopy, pleural biopsy, pleurodesis and PleurX placement Surgeon / Proj Engineer:?Geri Villarreal MD Anesthesia: ?Monitored anesthesia care (MAC) Findings: 2+ status on the diaphragm otherwise no significant pleural or lung abnormalities. We drained 1500 cc of yellow fluid. Estimated Blood Loss (EBL):?Less than 20 cc Specimens: Pleural fluid analysis for chemistry, micro, cell count with differential and cytology Pleural biopsy Complications:?None Disposition:?Transferred to PACU in stable condition. Geri Villarreal MD, FACP Interventional Pulmonogist
--- NOTE | 2025-06-27 13:01 | PC.NURSE ---
Specimens taken to lab. Talked to Liz about specific orders wanted for the pleural fluid. provided paper containing the specific orders was provided. Told that she (Liz) would take care of putting in the orders.
--- NOTE | 2025-06-27 13:12 | PC.NURSE ---
1300 cc of pleural fluid taken from patient.
--- NOTE | 2025-06-27 13:15 | PM.OP ---
Operative Report Date of procedure: June 27, 2025 Pre-op diagnosis: Recurrent right pleural effusion Post-op diagnosis: Same Procedure done: Right medical thoracoscopy with pleural biopsy, pleurodesis and tunnel chest tube placement. Surgeon: Geri Villarreal MD Estimated blood loss: Less than 5 cc Complications: None Findings: Right medical thoracoscopy Anesthesia Type: Monitored Anesthesia Care PREOPERATIVE INDICATION: Mrs. Evans presents for management of symptomatic right recurrent pleural effusion. The patient has been counseled on treatment options and recommendations. Patient agreed to proceed forward with a right thoracoscopy for pleural biopsy, pleurodesis and Pleurx placement Consent: The benefits, risks, and alternatives to the procedure were discussed and informed consent was obtained from patient . The patient was identified and the surgical site was confirmed. The patient was then positioned with left lung down, lateral decubitus. Right chest ultrasound was then performed, identifying large simple effusion a on the right side with no significant trabeculation or adhesions. Marker was used to leon an appropriate entry site at the posterior axillary line at about the 6th intercostal space. The patient was prepped and draped in usual sterile fashion. Patient was given 2 g of cefazolin IV per anesthesia team The selected single port incision site on the right chest wall, subcutaneous tissues and pleural interface were anesthestized with 20 mL of 1% lidocaine. A #11 blade was then used to make an approximately 1.0 to 1.5 cm incision. The intercostal muscles and fascia were then bluntly dissected using a curved la clamp until the pleural space was entered. A 5.5 mm trocar was inserted and the Danisha thoracoscope was introduced. A total of 1300 ml of dark yellow-colored fluid was drained. A complete video thoracoscopic inspection then was performed and revealed normal lung and normal pleura with a couple of blister on the diaphragm. Multiple pleural biopsies were then performed using cupped forceps in multiple areas with care to avoid the intercostal space. Attention was then turned to placing a right Pleurx catheter. We then performed TUNNELED PLEURAL CATHETER INSERTION. A second 5mm incision was made approximately 5-7cm anterocaudal to previous incision site. The catheter was then attached to the trocar in the tunneled pleural catheter kit and passed cephalad through a tunnel to the initial incision. The tube was disconnected from the tunneling trocar and introduced into the pleural space via the initial thoracostomy site. The drain line set was then connected and the tube was connected to a chest tube drainage kit. The drain line set was then connected and the tube was connected a pleuravac. We then performed thoracoscopic PLEURODESIS using 5g of talc powder administered using air insufflation via the port ensuring adequate coverage of the pleural space. The port incision site was closed with interrupted 2-0 vicryl sutures and the skin was closed with a 4-0 Biosyn subcuticlar stitch and skin glue was applied. The tube was then secured with 2-0 prolene. Estimated Blood Loss: Minimal Specimens: Pleural fluid for chemistry analysis, microbiology and cytology. Pleural biopsy/path Wound Classification:Clean Complications: none Disposition: PACU CPT codes for the procedure: 25425,97128, 81373 Geri Villarreal MD, FACP, FASN Interventional Pulmonary
--- NOTE | 2025-06-27 13:44 | PM.HP ---
Providers/Chief Complaint Admitting Physician: Geri Villarreal MD Primary Care Provider: SEGUN Mulligan Chief Complaint: J90 History of Present Illness Lizy Evans is a 54 year old female with a past medical history of end-stage renal disease on peritoneal dialysis, also has a hemodialysis catheter placed and plans for hemodialysis in the near future, history of CAD on aspirin, Plavix, history of type 2 diabetes mellitus, insulin therapy who is admitted to [facility], status post right dorsal DANIELA, pleural biopsy, pleurodesis with PleurX drain placement. Currently patient alert oriented x 3, following commands, her PleurX catheter is to suction, she tells me that she had peritoneal dialysis last night, denies any chest pain, no palpitation, no shortness of breath, but her right PleurX catheter currently hooked up to suction is causing pain, Review of Systems Card: Denies: chest pain Resp: Denies: dyspnea GI: Denies: abdominal pain Medications/Allergies Home Medications ?Medication ?Instructions ?Recorded ?Confirmed ?Last Taken ?Type omeprazole 20 mg capsule,delayed 20 mg PO DAILY 04/06/24 06/26/25 06/26/25 History release cetirizine 10 mg tablet 10 mg PO DAILY PRN Allergy Symptoms 05/23/24 06/26/25 06/26/25 History calcitriol 0.25 mcg capsule 0.25 mcg PO DAILY 10/30/24 06/26/25 06/26/25 History carvedilol 12.5 mg tablet 12.5 mg PO BID 90 days #180 tabs 10/30/24 06/26/25 06/26/25 Rx vit B,C-folic ac 800 mcg-zinc 12.5 1 tab PO DAILY 10/30/24 06/26/25 06/26/25 History mg-selen-D3 2,000 unit-vit E tablet (RenaPlex-D) sevelamer carbonate 800 mg tablet 800 mg PO TID 12/07/24 06/26/25 06/26/25 History torsemide 100 mg tablet 100 mg PO DAILY 12/07/24 06/26/25 06/26/25 History blood-glucose sensor (FreeStyle #2 ea 02/12/25 06/14/25 Unknown Rx Palak 3 Plus Sensor device) aspirin 81 mg capsule 81 mg PO DAILY #90 caps 02/18/25 06/26/25 06/26/25 Rx clopidogrel 75 mg tablet 75 mg PO DAILY #90 tabs 02/18/25 06/26/25 06/21/25 Rx nifedipine 60 mg tablet,extended 60 mg PO DAILY 03/20/25 06/26/25 06/26/25 History release duloxetine 30 mg capsule,delayed 30 mg PO .q am #30 caps 04/16/25 06/26/25 06/26/25 Rx release sodium bicarbonate 650 mg tablet 650 mg PO BID 04/16/25 06/26/25 06/26/25 History diabetic shoes with 3 inserts #1 ea 04/18/25 06/14/25 Unknown Rx insulin lispro 100 unit/mL See Rx Instructions .Route 06/10/25 06/26/25 06/26/25 Rx subcutaneous solution .COMPLEX #10 mL atorvastatin 40 mg tablet 40 mg PO DAILY 06/26/25 06/26/25 06/26/25 History hydralazine 50 mg tablet 100 mg PO TID 06/26/25 06/26/25 06/26/25 History lisinopril 40 mg tablet 40 mg PO DAILY 06/26/25 06/26/25 06/25/25 History Allergies Allergy/AdvReac Type Severity Reaction Status Date / Time venom-honey bee Allergy Severe ALGY-Redness Verified 06/14/25 08:11 of Skin marijuana (cannabis) Allergy Intermediate ADR-Nausea Verified 06/14/25 08:11 codeine AdvReac Severe ADR-Vomitin Verified 06/14/25 08:11 g morphine AdvReac Severe ADR-Vomitin Verified 06/14/25 08:11 g propoxyphene (From AdvReac Severe ADR-Vomitin Verified 06/14/25 08:11 Darvocet-N) g latex AdvReac Intermediate ALGY-Rash Verified 06/14/25 08:11 PFSH Acute PFSH: Medical History Pleural effusion PAD (peripheral artery disease) Essential hypertension Peritoneal dialysis catheter in place Uncontrolled type 2 diabetes mellitus Anemia of chronic disease ESRD (end stage renal disease) Diabetic neuropathy, type II diabetes mellitus Diabetic retinopathy Bereavement Major depressive disorder, recurrent, in partial remission Psychiatric care FH: total knee replacement left HLA B27 (HLA B27 positive) High risk medication use Inflammatory arthritis Seronegative spondyloarthropathy Chronic insomnia See subjective note below. Chronic pain See subjective note below. Chronic post-traumatic stress disorder (PTSD) Generalized anxiety disorder Major depressive disorder, recurrent, moderate Surgical History History of cataract extraction History of hysterectomy for benign disease History of tonsillectomy History of appendectomy History of left knee replacement Family History Mother Hypertension Diabetes Psychiatric illness Thyroid disease Father , in his 50's Family history of premature coronary artery disease Hyperlipidemia Myocardial infarction Brother Hypertension Sister No problems noted. Denies family history of Rheumatoid arthritis Lupus Social History Smoking and tobacco/nicotine status: never used tobacco/nicotine Second hand smoke exposure: No Alcohol intake: never Substance/Drug Use: never Adopted: No Caregiver/support person: No Lives independently: No Household members: family service: No Current occupational status: unemployed and disabled Sexually active: Yes Do you think of yourself as: Straight/Heterosexual Current gender identity: Female Vitals/I&O/Wt Last Vital Signs Temp 97.6 F 06/27/25 12:39 Pulse 79 06/27/25 13:30 Resp 14 06/27/25 13:30 BP 182/86 06/27/25 13:30 Pulse Ox 93 06/27/25 13:30 O2 Del Method Room Air 06/27/25 12:39 O2 Flow Rate 6 06/27/25 12:22 06/26/25 06/27/25 06/27/25 22:59 06:59 14:59 Intake Total 600 / 600 Output Total Balance 597 / 597 Weight last 48 hrs Weight 83.007 kg Weight 83.007 kg Physical Exam Const: COMMON NORMALS: no acute distress and patient oriented x3 Chest: OTHER: Right chest PleurX catheter in place, with dressing on top, area looks clean and dry Resp: COMMON NORMALS: normal respiratory effort, No retractions, No use of accessory muscles and clear to auscultation bilaterally AUSCULTATION: clear to auscultation bilaterally OTHER: Right HD catheter in place Cardio: COMMON NORMALS: no JVD, regular rate, regular rhythm, S1 normal heart sound present and S2 normal heart sound present RATE: regular rate RHYTHM: regular rhythm HEART SOUNDS: S1 normal heart sound present and S2 normal heart sound present GI: COMMON NORMALS: Normal to inspection, nondistended, normoactive bowel sounds present, Soft to palpation and non-tender OTHER: PD catheter in place Extremity: COMMON NORMALS: no pedal edema Neuro: COMMON NORMALS: patient oriented x3 Psych: COMMON NORMALS: mental status grossly normal A&P Assessment and plan 1. CHF (congestive heart failure): 2. Diastolic heart failure: 3. PAD (peripheral artery disease): 4. Uncontrolled type 2 diabetes mellitus: 5. ESRD (end stage renal disease) on dialysis: 6. Pleural effusion: Plan: Recurrent right pleural effusion - Status post right thoracoscopy, pleural biopsy, pleurodesis, right PleurX catheter placement -1500 cc of yellow fluid removed Plan - Monitor in ICU - Dr. Villarreal on consult - Right PleurX catheter currently on suction - Will monitor closely History of CAD status post stenting - Continue aspirin, Plavix tomorrow End-stage renal disease on dialysis - Status post peritoneal dialysis last night - Does have HD catheter in place, has not undergone HD as of yet with plans on HD in the near future - Consult nephrology - Ordered CMP Type 2 diabetes mellitus - Low-dose sliding scale Full code Lovenox for DVT prophylaxis PDMP PDMP Reviewed: Not Reviewed Attestations Medical Necessity Statement*: Patient requires hospitalization, for recurrent right pleural effusion, requiring inpatient monitoring, greater than 2 midnights Diagnoses CHF (congestive heart failure) I50.9 Diastolic heart failure I50.30 PAD (peripheral artery disease) I73.9 Uncontrolled type 2 diabetes mellitus ESRD (end stage renal disease) on dialysis N18.6; Z99.2 Pleural effusion J90
[2025-06-27 14:12] LABS: Mononuclear %, Pleural Fluid 96 %; Polynuclear Cells, Pleural % 4 %
[2025-06-27 14:14] LABS: WBC Pleural Fluid 273.000 /uL (0-1000)
[2025-06-27 14:14] LABS: Hematocrit 39.1 % (36-47); Hemoglobin 12.20 g/dL (11.27-16.99); Mean Corpuscular HGB Conc 31.2 g/dL (30-55); Mean Corpuscular Hemoglobin 26.9 pg (27-33); Mean Corpuscular Volume 86.3 fl (85-98); Nucleated Red Blood Cells % 0 %; Platelet Count 364 10^3/cmm (157-399); Red Blood Count 4.53 10^6/uL (3.85-5.65); White Blood Count 9.26 10^3/uL (3.29-11.43)
[2025-06-27 14:16] LABS: Hematocrit Body Fluid 0.0 %
[2025-06-27 14:39] LABS: Alanine Aminotransferase 15 U/L (0-33); Albumin Level 3.2 g/dL (3.5-5.2); Alkaline Phosphatase 88 U/L (35-105); Anion Gap 19.7 (5-19); Aspartate Amino Transferase 19 U/L (0-32); Blood Urea Nitrogen 49 mg/dL (6-20); Calcium 8.3 mg/dL (8.5-10.5); Carbon Dioxide 25 mmol/L (22-29); Chloride 98 mmol/L (98-107); Creatinine Clr Calc Pharmacy 8.0761; Globulin 3.0 g/dL (1.3-4.6); Glucose 101 mg/dL (65-115); Magnesium 1.8 mg/dL (1.7-2.3); Osmolality Calculated 301 mOsm/kg (285-295); Potassium 3.7 mmol/L (3.5-5.1); Sodium 139 mmol/L (136-145); Total Protein 6.2 g/dL (6.6-8.7)
[2025-06-27 14:53] LABS: Estmated Average Glucose 120; Hemoglobin A1C 5.8 % (4.0-6.0)
[2025-06-27 15:03] LABS: Appearance, Pleural Fluid CLOUDY (CLEAR); Color, Pleural Fluid Pale Yellow (Pale Yellow)
[2025-06-27 15:04] LABS: PATH Referal YES
[2025-06-27 15:06] LABS: Pleural Fluid Cholesterol 31 mg/dL
[2025-06-27 15:07] LABS: NT Pro B Type Natriuretic Pept 31322 pg/mL (0-125)
[2025-06-27] MEDS: HYDROmorphone 0.5 MG/0.5 ML INJ IVP ×2 (15:19→20:12)
--- NOTE | 2025-06-27 18:18 | PM.CONSULT ---
Providers/Reason For Consult Consulting Physician/Specialty*: [facility] /nEPHROLOGY Reason for Consult*: ESRD Attending Physician: Geri Villarreal MD Primary Care Provider: SEGUN Mulligan History of Present Illness History of Present Illness Lizy Evans is a 54 year old female Patient is a 54-year-old female with past medical history of end-stage renal disease on peritoneal dialysis but had tunneled catheter placed with plans to switch to Humulin overload. Other past medical history significant for diabetes, coronary artery disease. Patient presented to the emergency department and underwent status post pleural biopsy with pleurodesis and PleurX drain placement for recurrent right pleural effusion. Patient has performed peritoneal dialysis at home last night. Currently patient is on room air. Labs reviewed. Review of Systems Narrative: negative Medications/Allergies Home Medications ?Medication ?Instructions ?Recorded ?Confirmed ?Last Taken ?Type omeprazole 20 mg capsule,delayed 20 mg PO DAILY 04/06/24 06/26/25 06/26/25 History release cetirizine 10 mg tablet 10 mg PO DAILY PRN Allergy Symptoms 05/23/24 06/26/25 06/26/25 History calcitriol 0.25 mcg capsule 0.25 mcg PO DAILY 10/30/24 06/26/25 06/26/25 History carvedilol 12.5 mg tablet 12.5 mg PO BID 90 days #180 tabs 10/30/24 06/26/25 06/26/25 Rx vit B,C-folic ac 800 mcg-zinc 12.5 1 tab PO DAILY 10/30/24 06/26/25 06/26/25 History mg-selen-D3 2,000 unit-vit E tablet (RenaPlex-D) sevelamer carbonate 800 mg tablet 800 mg PO TID 12/07/24 06/26/25 06/26/25 History torsemide 100 mg tablet 100 mg PO DAILY 12/07/24 06/26/25 06/26/25 History blood-glucose sensor (FreeStyle #2 ea 02/12/25 06/14/25 Unknown Rx Palak 3 Plus Sensor device) aspirin 81 mg capsule 81 mg PO DAILY #90 caps 02/18/25 06/26/25 06/26/25 Rx clopidogrel 75 mg tablet 75 mg PO DAILY #90 tabs 02/18/25 06/26/25 06/21/25 Rx nifedipine 60 mg tablet,extended 60 mg PO DAILY 03/20/25 06/26/25 06/26/25 History release duloxetine 30 mg capsule,delayed 30 mg PO .q am #30 caps 04/16/25 06/26/25 06/26/25 Rx release sodium bicarbonate 650 mg tablet 650 mg PO BID 04/16/25 06/26/25 06/26/25 History diabetic shoes with 3 inserts #1 ea 04/18/25 06/14/25 Unknown Rx insulin lispro 100 unit/mL See Rx Instructions .Route 06/10/25 06/26/25 06/26/25 Rx subcutaneous solution .COMPLEX #10 mL atorvastatin 40 mg tablet 40 mg PO DAILY 06/26/25 06/26/25 06/26/25 History hydralazine 50 mg tablet 100 mg PO TID 06/26/25 06/26/25 06/26/25 History lisinopril 40 mg tablet 40 mg PO DAILY 06/26/25 06/26/25 06/25/25 History Allergies Allergy/AdvReac Type Severity Reaction Status Date / Time venom-honey bee Allergy Severe ALGY-Redness Verified 06/14/25 08:11 of Skin marijuana (cannabis) Allergy Intermediate ADR-Nausea Verified 06/14/25 08:11 codeine AdvReac Severe ADR-Vomitin Verified 06/14/25 08:11 g morphine AdvReac Severe ADR-Vomitin Verified 06/14/25 08:11 g propoxyphene (From AdvReac Severe ADR-Vomitin Verified 06/14/25 08:11 Darvocet-N) g latex AdvReac Intermediate ALGY-Rash Verified 06/14/25 08:11 Current Medications Generic Name Dose Route Start Last Admin Trade Name Freq PRN Reason Stop Dose Admin Carvedilol 12.5 mg 06/27/25 18:00 06/27/25 17:45 Carvedilol 12.5 Mg Tablet PO 12.5 mg BID ALMITA Administration Hydralazine HCl 100 mg 06/27/25 15:00 06/27/25 14:24 Hydralazine 50 Mg Tablet PO 100 mg TID ALMITA Administration Hydromorphone HCl 0.5 mg 06/27/25 13:40 06/27/25 15:19 Hydromorphone 0.5 Mg/0.5 Ml Inj IVP 0.5 mg Q4H PRN Administration PAIN Insulin Human Lispro 0 unit 06/27/25 18:00 06/27/25 17:43 Insulin Lispro 100 Unit/1 Ml SUBCUT Not Given TIDWM ALMITA Protocol Sevelamer Carbonate 800 mg 06/27/25 15:00 06/27/25 14:24 Sevelamer 800 Mg Tablet PO 800 mg TID ALMITA Administration Sodium Bicarbonate 650 mg 06/27/25 18:00 06/27/25 17:45 Sodium Bicarbonate 650 Mg Tablet PO 650 mg BID ALMITA Administration PFSH Acute PFSH: Medical History Pleural effusion PAD (peripheral artery disease) Essential hypertension Peritoneal dialysis catheter in place Uncontrolled type 2 diabetes mellitus Anemia of chronic disease ESRD (end stage renal disease) Diabetic neuropathy, type II diabetes mellitus Diabetic retinopathy Bereavement Major depressive disorder, recurrent, in partial remission Psychiatric care FH: total knee replacement left HLA B27 (HLA B27 positive) High risk medication use Inflammatory arthritis Seronegative spondyloarthropathy Chronic insomnia See subjective note below. Chronic pain See subjective note below. Chronic post-traumatic stress disorder (PTSD) Generalized anxiety disorder Major depressive disorder, recurrent, moderate Surgical History History of cataract extraction History of hysterectomy for benign disease History of tonsillectomy History of appendectomy History of left knee replacement Family History Mother Hypertension Diabetes Psychiatric illness Thyroid disease Father , in his 50's Family history of premature coronary artery disease Hyperlipidemia Myocardial infarction Brother Hypertension Sister No problems noted. Denies family history of Rheumatoid arthritis Lupus Social History Smoking and tobacco/nicotine status: never used tobacco/nicotine Second hand smoke exposure: No Alcohol intake: never Substance/Drug Use: never Adopted: No Caregiver/support person: No Lives independently: No Household members: family service: No Current occupational status: unemployed and disabled Sexually active: Yes Do you think of yourself as: Straight/Heterosexual Current gender identity: Female Vitals/I&O/Wt Last Vital Signs Temp 97.3 F L 06/27/25 16:00 Pulse 68 06/27/25 16:35 Resp 14 06/27/25 16:00 BP 169/85 06/27/25 14:00 Pulse Ox 96 06/27/25 14:28 O2 Del Method Room Air 06/27/25 14:28 O2 Flow Rate 6 06/27/25 12:22 06/27/25 06/27/25 06/27/25 06:59 14:59 22:59 Intake Total 600 / 600 Output Total Balance 597 / 597 Weight last 48 hrs Weight 83.007 kg Weight 83.007 kg Physical Exam Narrative: awake , alert , no distress PEERLA S1S2 RRR per report Lungs clear Abd - soft , non tender Ext , no edema RIJ tunnelled catheter PD catheter in place Data 06/27/25 14:07 06/27/25 14:07 A&P Assessment and plan 1. ESRD (end stage renal disease) on dialysis: Plan: 1. End-stage renal disease: On PD at home but will switch to hemodialysis while in the hospital. Patient's integrity manager already planning to switch to hemodialysis for few weeks. Patient has right IJ tunneled catheter. 2. Recurrent right pleural effusion, status post pleurodesis and pleural biopsy with PleurX catheter placement today 3. History of hypertension, blood pressure elevated on presentation, resume home meds 4. History of diabetes Patient evaluated using audiovisual cart. Time spent 40 minutes PDMP PDMP Reviewed: Not Reviewed Consult Attestations Medical Necessity Statement: per shona Coding Level of Care Code Acute Code for Chg Fwd Diagnoses ESRD (end stage renal disease) on dialysis N18.6; Z99.2
[2025-06-27] MEDS: ondansetron 2 mg/ML SDV 2 mL 4 MG IVP (20:19)
[2025-06-27] MEDS: hyDRALAzine 20 mg/mL INJ 1 mL IVP (21:59)
[2025-06-27] MEDS: NIFEdipine ER (24 hr) 30 mg Tablet 60 MG PO (22:50)
[2025-06-28] VITALS (100 sets, daily range): BP systolic 123–215; BP diastolic 55–139; PULSE 79–101; RESP 10–31; TEMP 36.5–37.1; O2SAT 87–96
[2025-06-28] MEDS: hyDRALAzine 20 mg/mL INJ 1 mL IVP (00:55)
--- NOTE | 2025-06-28 01:40 | PC.NURSE ---
Blood Pressure At 2150, patient's blood pressure 225/124 despite PO hydralazine administration. Dr. Trevizo notified; orders received for 20 mg IVP hydralazine once and to notify physician of blood pressure in 20 minutes following medication. At 2231, patient's blood pressure still 214/127. Order received for 60 mg procardia XL PO once. At 0023, patient's blood pressure 215/128. Dr. Trevizo contacted again; Order received for 20mg hydralazine IVP once and to notify her of blood pressure in 30 minutes. At 0130, patient's blood pressure 210/109. Dr. Trevizo notified; order received to let her know if blood pressure is still above 200 systolic in the next hour.
--- NOTE | 2025-06-28 02:30 | PC.NURSE ---
Blood Pressure/Nausea Patient's blood pressure 201/112. Furthermore, patient nauseous and vomiting. Dr. Trevizo contacted; order received to administer 8 mg zofran IV once, then change frequency of PRN 4 mg zofran to Q4H, and when no longer nauseous, administer 100 mg hydralazine PO once. Frequency and amount of hydralazine administrations verified by pharmacy.
[2025-06-28] MEDS: ondansetron 2 mg/ML SDV 2 mL 8 MG IVP (02:37)
[2025-06-28 02:49] LABS: Hematocrit 39.5 % (36-47); Hemoglobin 12.30 g/dL (11.27-16.99); Mean Corpuscular HGB Conc 31.1 g/dL (30-55); Mean Corpuscular Hemoglobin 26.4 pg (27-33); Mean Corpuscular Volume 84.8 fl (85-98); Nucleated Red Blood Cells % 0 %; Platelet Count 381 10^3/cmm (157-399); Red Blood Count 4.66 10^6/uL (3.85-5.65)
[2025-06-28 03:12] LABS: Alanine Aminotransferase 12 U/L (0-33); Albumin Level 3.1 g/dL (3.5-5.2); Alkaline Phosphatase 75 U/L (35-105); Anion Gap 27.2 (5-19); Aspartate Amino Transferase 21 U/L (0-32); Blood Urea Nitrogen 50 mg/dL (6-20); Calcium 8.9 mg/dL (8.5-10.5); Carbon Dioxide 20 mmol/L (22-29); Chloride 97 mmol/L (98-107); Creatinine Clr Calc Pharmacy 7.7048; Globulin 4.0 g/dL (1.3-4.6); Glucose 167 mg/dL (65-115); Osmolality Calculated 307 mOsm/kg (285-295); Potassium 4.2 mmol/L (3.5-5.1); Sodium 140 mmol/L (136-145); Total Protein 7.1 g/dL (6.6-8.7)
[2025-06-28 03:19] LABS: White Blood Count 34.93 10^3/uL (3.29-11.43)
--- NOTE | 2025-06-28 03:49 | PC.NURSE ---
WBC Dr. Trevizo notified of patient's critical WBC 34.93 and creatinine 8.7. Orders received to obtain blood cultures x2, administer one time dose of 2.25 mg zosyn IV, then time zosyn 2.25 mg IV Q8H.
[2025-06-28] MEDS: piperacillin-tazobactam 2.25 GM in sodium chloride 0.9% (plus) 50 ML IV (04:06)
[2025-06-28 05:20] LABS: Slide Review Slide Review Perform
--- NOTE | 2025-06-28 07:00 | XRR_ITS ---
PROCEDURE INFORMATION: Exam: XR Chest Exam date and time: 06/28/2025 5:47 AM Age: 54 years old Clinical indication: Shortness of breath; Additional info: SOB TECHNIQUE: Imaging protocol: Radiologic exam of the chest. Views: 1 view. COMPARISON: CR XR chest 1V portable [id number] 06/27/2025 12:10 PM FINDINGS: Tubes, catheters and devices: Right dialysis catheter unchanged. Lungs: Vascular prominence, interstitial edema, and small bilateral pleural effusions all indicate CHF/fluid overload. Pleural spaces: See Lungs finding. Heart/Mediastinum: See Vasculature finding. Vasculature: Cardiomegaly and uncoiling of the thoracic aorta. Bones/joints: Unremarkable. XR/XR chest 1V portable [id number] IMPRESSION: Stable findings of CHF/fluid overload.
--- NOTE | 2025-06-28 07:24 | PC.PHAR ---
Addendum entered by Munira Cool 06/28/25 09:14: [facility] rx shows rx for Isosorbide Mononitrate er 30mg daily last fill 03/05/25 90ds-was due to refill in May but rx has and no new order has been sent. Addendum entered by Munira Cool 06/28/25 08:54: Pharmacy states pt has been filling and picking up 25mg since October 2024. Original Note: Looks like Carvedilol dosage was increased 06/06/25 from 12.5 to 25mg bid. Will follow up with pt and pharmacy. 06/28/25
[2025-06-28] MEDS: NIFEdipine ER (24 hr) 30 mg Tablet 60 MG PO (08:08)
[2025-06-28] MEDS: ondansetron 2 mg/ML SDV 2 mL 4 MG IVP ×2 (09:09→23:36)
[2025-06-28] MEDS: heparin, porcine 1,000 unit/mL INJ 10 mL 1000 UNIT IV (09:20)
[2025-06-28 12:12] LABS: Procalcitonin 1.11 ng/mL (0-0.5)
--- NOTE | 2025-06-28 12:50 | P.PN_ITS ---
Subjective 2 Subjective: No acute events overnight. Patient underwent right thoracoscopy, pleural biopsy, pleurodesis and PleurX catheter insertion on 08/2025. Patient tolerated procedure well. She has good lung expansion on the right side. Patient remained afebrile. She had about 300 cc serosanguineous output from the chest tube since the procedure. Medications: Medication Review Details: Current Medications Acetaminophen (Acetaminophen 325 Mg Tablet) 650 mg PO Q6H PRN PRN Reason: Mild/Mod Pain Or Temp >/= 101 Last Admin: 06/28/25 03:09 Dose: 650 mg Aspirin (Aspirin 81 Mg Ec Tablet) 81 mg PO DAILY COUNTS INCLUDE 234 BEDS AT THE [facility] Last Admin: 06/28/25 08:07 Dose: 81 mg Atorvastatin Calcium (Atorvastatin 40 Mg Tablet) 40 mg PO DAILY COUNTS INCLUDE 234 BEDS AT THE [facility] Last Admin: 06/28/25 08:08 Dose: 40 mg Calcitriol (Calcitriol 0.25 Mcg Capsule) 0.25 mcg PO DAILY COUNTS INCLUDE 234 BEDS AT THE [facility] Last Admin: 06/28/25 08:07 Dose: 0.25 mcg Carvedilol (Carvedilol 12.5 Mg Tablet) 12.5 mg PO BID COUNTS INCLUDE 234 BEDS AT THE [facility] Last Admin: 06/28/25 08:07 Dose: 12.5 mg Clopidogrel Bisulfate (Clopidogrel 75 Mg Tablet) 75 mg PO DAILY COUNTS INCLUDE 234 BEDS AT THE [facility] Last Admin: 06/28/25 08:07 Dose: 75 mg Duloxetine HCl (Duloxetine 30 Mg Capsule) 30 mg PO QAM COUNTS INCLUDE 234 BEDS AT THE [facility] Last Admin: 06/28/25 05:33 Dose: 30 mg Enoxaparin Sodium (Enoxaparin 30 Mg/0.3 Ml Syringe) 30 mg SUBCUT Q24H COUNTS INCLUDE 234 BEDS AT THE [facility] Last Admin: 06/28/25 03:07 Dose: 30 mg Glucagon (Glucagon 1 Mg/Ml Kit 1 Ml) 1 mg IM ONCE PRN; Protocol PRN Reason: Adult Acute Hypoglycemia Nursing Prot. Hydralazine HCl (Hydralazine 50 Mg Tablet) 100 mg PO TID COUNTS INCLUDE 234 BEDS AT THE [facility] Last Admin: 06/28/25 08:08 Dose: 100 mg Hydromorphone HCl (Hydromorphone 0.5 Mg/0.5 Ml Inj) 0.5 mg IVP Q4H PRN PRN Reason: PAIN Last Admin: 06/27/25 20:12 Dose: 0.5 mg Dextrose (D5w) 500 mls @ 0 mls/hr IV ONCE PRN; Protocol PRN Reason: Adult Acute Hypoglycemia Prot Dextrose (D10w) 250 mls @ 1,000 mls/hr IV PRN PRN; Protocol PRN Reason: Adult Acute Hypoglycemia Nursing Protocol Dextrose (D10w) 125 mls @ 750 mls/hr IV PRN PRN; Protocol PRN Reason: Adult Acute Hypoglycemia Nursing Protocol Sodium Chloride (Sodium Chloride 0.9%) 1,000 mls @ 0 mls/hr IV .Q0M PRN PRN Reason: hypotension or symptomatic Albumin Human (Albumin) 12.5 gm in 50 mls @ 60 mls/hr IV PRN PRN PRN Reason: Hypotension and/or symptomatic Piperacillin Sod/Tazobactam (Sod 3.375 gm/ Sodium Chloride) 50 mls @ 12.5 mls/hr IV Q12H COUNTS INCLUDE 234 BEDS AT THE [facility]; Protocol Insulin Human Lispro (Insulin Lispro 100 Unit/1 Ml) 0 unit SUBCUT TIDWM COUNTS INCLUDE 234 BEDS AT THE [facility]; Protocol Last Admin: 06/28/25 08:08 Dose: 2 unit Lisinopril (Lisinopril 20 Mg Tablet) 40 mg PO DAILY COUNTS INCLUDE 234 BEDS AT THE [facility] Last Admin: 06/28/25 08:08 Dose: 40 mg Naloxone HCl (Naloxone 0.4 Mg/Ml Sdv) 0.1 mg IVP Q2M PRN PRN Reason: OPIATERV Nifedipine (Nifedipine Er (24 Hr) 30 Mg Tablet) 60 mg PO DAILY COUNTS INCLUDE 234 BEDS AT THE [facility] Last Admin: 06/28/25 08:08 Dose: 60 mg Non-Formulary Medication (Vit B,O-Du-Uibi-Selen-Vit D3-E [Renaplex-D]) 1 tab PO DAILY COUNTS INCLUDE 234 BEDS AT THE [facility] Last Admin: 06/28/25 08:12 Dose: Not Given Ondansetron HCl (Ondansetron 2 Mg/Ml Sdv 2 Ml) 4 mg IVP Q4H PRN PRN Reason: vomiting, or N/V if npo Last Admin: 06/28/25 09:09 Dose: 4 mg Sevelamer Carbonate (Sevelamer 800 Mg Tablet) 800 mg PO TID COUNTS INCLUDE 234 BEDS AT THE [facility] Last Admin: 06/28/25 08:07 Dose: 800 mg Sodium Bicarbonate (Sodium Bicarbonate 650 Mg Tablet) 650 mg PO BID COUNTS INCLUDE 234 BEDS AT THE [facility] Last Admin: 06/28/25 08:07 Dose: 650 mg Torsemide (Torsemide 20 Mg Tablet) 100 mg PO DAILY COUNTS INCLUDE 234 BEDS AT THE [facility] Last Admin: 06/28/25 08:07 Dose: 100 mg Vitals/I&O/Wt Last Vital Signs Temp 97.7 F 06/28/25 09:56 Pulse 84 06/28/25 10:45 Resp 19 H 06/28/25 10:45 BP 171/93 06/28/25 10:45 Pulse Ox 95 06/28/25 10:45 O2 Del Method Room Air 06/28/25 10:45 O2 Flow Rate 6 06/27/25 12:22 06/27/25 06/28/25 06/28/25 22:59 06:59 14:59 Intake Total 326.5 / 926.5 Output Total 400 / 403 250 / 653 Balance -73.5 / 523.5 -250 / 273.5 Weight last 48 hrs Weight 184 lb 11.2 oz Weight 183 lb Weight 183 lb Physical Exam 2 Narrative: General: Alert, oriented, and in no acute distress. Appears well-nourished and well-developed. Neck: Supple. Cardiovascular: Regular rate and rhythm. Respiratory: Lungs are clear to auscultation bilaterally. No wheezes, rales, or rhonchi. No use of accessory muscles. Abdomen: Soft, non-tender, non-distended. Normoactive bowel sounds. Extremities: No cyanosis, clubbing, or edema. Full range of motion. Peripheral pulses palpable and symmetric. Skin: Warm and dry. No rashes, lesions, or ulcers. Neurology: Alert and oriented to person, place, and time. Grossly intact with no focal deficit. Psychiatry: Good mood with Appropriate affect. Right chest tube with dressing in place. There is no evidence of air leak on the Pleur-evac. Data 06/28/25 02:30 06/28/25 02:30 Micro: Microbiology 06/27/25 12:00 Gram Stain - Final Pleural Fluid 06/27/25 12:00 Gram Stain - Final Lung - Biopsy A&P Assessment and plan 1. Recurrent right pleural effusion: Patient underwent right thoracoscopy, pleural biopsy, talc pleurodesis and PleurX placement on 06/27/2025. Pleural fluid study and histopathology are pending but will have came back so far appears to be reassuring. Chest x-ray with good lung expansion. Patient drained about 300 cc over the past 16 hours. Patient developed leukocytosis this morning and this is most likely leukemoid reaction. Further management and evaluation per hospital medicine team. Daughter was not available this morning for drainage education. I had an extensive discussion with the patient's primary pre k special education teacher Dr. Ese Gonzales and we agreed the patient will stay on hemodialysis for about 10 days then we will transition her to peritoneal dialysis. If patient stays without evidence of recurrent pleural effusion and no significant output from the PleurX, we will plan on removing her PleurX catheter hoping toward the end of June if she pleurodesis. Home health has been consulted to arrange for PleurX drainage at home but her daughter is under just a mess and will be trained as a backup as well. The patient was planned to be discharged today but with a leukocytosis, the hospital medicine team would like to monitor and we are hoping to discharge in the coming 48 hours. Patient can be restarted on a all her home medication including aspirin and Plavix. PDMP PDMP Reviewed: Not Reviewed Attestations 2 Medical Necessity Statement*: Patient with chest tube to suction to enhance pleurodesis. Coding Level of Care Code Acute Code for Chg Fwd Diagnoses Recurrent right pleural effusion J90
[2025-06-28] MEDS: piperacillin-tazobactam 3.375 GM in sodium chloride 0.9% (plus) 50 ML IV ×2 (12:52→12:54)
--- NOTE | 2025-06-28 14:47 | P.PN_ITS ---
Subjective 2 Subjective: s/p HD this Am Medications: Reviewed: Yes Vitals/I&O/Wt Last Vital Signs Temp 97.7 F 06/28/25 09:56 Pulse 83 06/28/25 14:00 Resp 19 H 06/28/25 14:00 BP 135/76 06/28/25 14:00 Pulse Ox 94 06/28/25 14:00 O2 Del Method Room Air 06/28/25 14:00 O2 Flow Rate 6 06/27/25 12:22 06/27/25 06/28/25 06/28/25 22:59 06:59 14:59 Intake Total 326.5 / 926.5 0.417 / 0.417 Output Total 400 / 403 250 / 653 Balance -73.5 / 523.5 -250 / 273.5 0.417 / 0.417 Weight last 48 hrs Weight 83.779 kg Weight 83.007 kg Weight 83.007 kg Physical Exam 2 Narrative: awake , alert , no distress PEERLA S1S2 RRR per report Lungs clear Abd - soft , non tender Ext , no edema RIJ tunnelled catheter PD catheter in place Data 06/28/25 02:30 06/28/25 02:30 Micro: Microbiology 06/27/25 12:00 Gram Stain - Final Pleural Fluid 06/27/25 12:00 Gram Stain - Final Lung - Biopsy A&P Assessment and plan 1. ESRD (end stage renal disease) on dialysis: Plan: 1. End-stage renal disease: On PD at home but switched to hemodialysis . 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 Patient has right IJ tunneled catheter. - HD done today - case technician to set up put pt HD chair 2. Recurrent right pleural effusion, status post pleurodesis and pleural biopsy with PleurX catheter placement today 3. History of hypertension, blood pressure elevated on presentation, resume home meds 4. History of diabetes Patient evaluated using audiovisual cart. Time spent 40 minutes PDMP PDMP Reviewed: Not Reviewed Attestations 2 Medical Necessity Statement*: per shona Coding Level of Care Code Acute Code for Chg Fwd Diagnoses ESRD (end stage renal disease) on dialysis N18.6; Z99.2
--- NOTE | 2025-06-28 16:09 | P.PN_ITS ---
Subjective 2 Subjective: Patient was seen this morning, she is alert oriented x 3, following commands, denies any fevers, chills, has a cough, no lightheadedness, dizziness, no abdominal pain, no diarrhea, discussed monitoring of her PleurX, discussed her leukocytosis, Vitals/I&O/Wt Last Vital Signs Temp 97.7 F 06/28/25 09:56 Pulse 83 06/28/25 14:00 Resp 19 H 06/28/25 14:00 BP 135/76 06/28/25 14:00 Pulse Ox 94 06/28/25 14:00 O2 Del Method Room Air 06/28/25 14:00 O2 Flow Rate 6 06/27/25 12:22 06/28/25 06/28/25 06/28/25 06:59 14:59 22:59 Intake Total 0.417 / 0.417 Output Total 250 / 653 Balance -250 / 273.5 0.417 / 0.417 Weight last 48 hrs Weight 83.779 kg Weight 83.007 kg Weight 83.007 kg Physical Exam 2 Const: COMMON NORMALS: no acute distress and patient oriented x3 Resp: COMMON NORMALS: normal respiratory effort, No retractions, No use of accessory muscles and clear to auscultation bilaterally AUSCULTATION: clear to auscultation bilaterally Cardio: COMMON NORMALS: regular rate, regular rhythm, S1 normal heart sound present and S2 normal heart sound present RATE: regular rate RHYTHM: r egular rhythm HEART SOUNDS: S1 normal heart sound present and S2 normal heart sound present GI: COMMON NORMALS: Normal to inspection, nondistended, normoactive bowel sounds present and non-tender Extremity: COMMON NORMALS: no pedal edema Neuro: COMMON NORMALS: patient oriented x3 Psych: COMMON NORMALS: mental status grossly normal Data 06/28/25 02:30 06/28/25 02:30 Micro: Microbiology 06/27/25 12:00 Gram Stain - Final Pleural Fluid 06/27/25 12:00 Gram Stain - Final Lung - Biopsy A&P Assessment and plan 1. CHF (congestive heart failure): 2. Diastolic heart failure: 3. PAD (peripheral artery disease): 4. Uncontrolled type 2 diabetes mellitus: 5. ESRD (end stage renal disease) on dialysis: 6. Pleural effusion: Plan: Recurrent right pleural effusion - Status post right thoracoscopy, pleural biopsy, pleurodesis, right PleurX catheter placement -1500 cc of yellow fluid removed Plan - Monitor in ICU - Dr. Villarreal on consult - Right PleurX catheter currently on suction - Will monitor closely Leukocytosis? - Blood cultures ordered - Order CRP, Pro-Lucio - Urinalysis - No new rashes History of CAD status post stenting - Continue aspirin, Plavix tomorrow End-stage renal disease on dialysis - Status post peritoneal dialysis last night - Does have HD catheter in place, has not undergone HD as of yet with plans on HD in the near future - Consult nephrology - Will consider dialysis based on clinical progress Type 2 diabetes mellitus - Low-dose sliding scale Full code Lovenox for DVT prophylaxis PDMP PDMP Reviewed: Not Reviewed Attestations 2 Medical Necessity Statement*: Patient requires hospitalization recurrent right pleural effusion, status post PleurX catheter placement Diagnoses CHF (congestive heart failure) I50.9 Diastolic heart failure I50.30 PAD (peripheral artery disease) I73.9 Uncontrolled type 2 diabetes mellitus ESRD (end stage renal disease) on dialysis N18.6; Z99.2 Pleural effusion J90
--- NOTE | 2025-06-28 16:10 | PC.SOCIAL ---
*IMM* Patient received Important Message from Medicare, Pt Received a copy. Initialed and dated in the chart.
[2025-06-28 18:48] LABS: Respiratory Syncytial Virus Ce NEGATIVE (Negative); SARS-CoV-2 PCR NEGATIVE (Negative)
[2025-06-28] MEDS: HYDROmorphone 0.5 MG/0.5 ML INJ IVP (23:35)
[2025-06-29] VITALS (99 sets, daily range): BP systolic 122–177; BP diastolic 57–120; PULSE 79–93; RESP 1–28; TEMP 36.5–37.6; O2SAT 87–96
[2025-06-29 04:27] LABS: Hematocrit 34.8 % (36-47); Hemoglobin 10.80 g/dL (11.27-16.99); Mean Corpuscular HGB Conc 31.0 g/dL (30-55); Mean Corpuscular Hemoglobin 26.5 pg (27-33); Mean Corpuscular Volume 85.5 fl (85-98); Nucleated Red Blood Cells % 0 %; Platelet Count 325 10^3/cmm (157-399); Red Blood Count 4.07 10^6/uL (3.85-5.65); White Blood Count 21.99 10^3/uL (3.29-11.43)
[2025-06-29 04:55] LABS: Procalcitonin 4.08 ng/mL (0-0.5)
[2025-06-29 06:07] LABS: Alanine Aminotransferase < 5 U/L (0-33); Albumin Level 2.9 g/dL (3.5-5.2); Alkaline Phosphatase 72 U/L (35-105); Anion Gap 19.1 (5-19); Aspartate Amino Transferase 16 U/L (0-32); Blood Urea Nitrogen 32 mg/dL (6-20); Calcium 8.8 mg/dL (8.5-10.5); Carbon Dioxide 26 mmol/L (22-29); Chloride 96 mmol/L (98-107); Creatinine Clr Calc Pharmacy 11.1719; Globulin 2.9 g/dL (1.3-4.6); Glucose 119 mg/dL (65-115); Osmolality Calculated 292 mOsm/kg (285-295); Potassium 4.1 mmol/L (3.5-5.1); Sodium 137 mmol/L (136-145); Total Protein 5.8 g/dL (6.6-8.7)
--- NOTE | 2025-06-29 07:00 | XRR_ITS ---
PROCEDURE INFORMATION: Exam: XR Chest Exam date and time: 06/29/2025 7:11 AM Age: 54 years old Clinical indication: Shortness of breath; Additional info: SOB TECHNIQUE: Imaging protocol: Radiologic exam of the chest. Views: 1 view. COMPARISON: CR (CHEST, ) 06/28/2025 5:47 AM FINDINGS: Tubes, catheters and devices: Unchanged tunneled right IJ dialysis catheter projecting in satisfactory position. Lungs: Bilateral lower lung edema and/or pneumonitis with some atelectasis is slightly increased. Otherwise, unremarkable. Pleural spaces: Unchanged small bilateral pleural effusions. No pneumothorax. Heart/Mediastinum: Unremarkable. No cardiomegaly. Bones/joints: Nothing acute. No change. XR/XR chest 1V portable [id number] IMPRESSION: 1. Unchanged small bilateral pleural effusions. 2. Bilateral lower lung edema and/or pneumonitis with some atelectasis is slightly increased.
[2025-06-29] MEDS: NIFEdipine ER (24 hr) 30 mg Tablet 60 MG PO (08:23)
--- NOTE | 2025-06-29 08:41 | CTR_ITS ---
PROCEDURE INFORMATION: Exam: CT Chest With Contrast; Diagnostic Exam date and time: 06/29/2025 9:52 AM Age: 54 years old Clinical indication: Other: Leukocytosis? TECHNIQUE: Imaging protocol: Diagnostic computed tomography of the chest with contrast. Radiation optimization: All CT scans at this facility use at least one of these dose optimization techniques: automated exposure control; mA and/or kV adjustment per patient size (includes targeted exams where dose is matched to clinical indication); or iterative reconstruction. Contrast material: OMNI 350; Contrast volume: 100 ml; Contrast route: INTRAVENOUS (IV); COMPARISON: CT chest con [id number] 05/22/2025 7:56 AM RADIATION DOSE METRICS: Total DLP (mGy-cm): 1080.58 FINDINGS: Tubes, catheters and devices: Small bore right chest tube terminating in the lower posterior right pleural space. Right IJ central line. Lungs: Moderate amount of bilateral, mostly dependent and basilar atelectasis and/or pneumonitis. Otherwise, unremarkable. Pleural spaces: Small bilateral pleural effusions. Small amount of gas in the right pleural space. Empyema is possible. A few tiny high density foci abutting the mid right major fissure and lower right pleura could be blood in the right pleural space and/or right lung. Heart: Unchanged mild cardiomegaly. Coronary arteries: Moderate amount of coronary artery calcification. Lymph nodes: Unremarkable. No enlarged lymph nodes. Vasculature: Unremarkable. No aortic aneurysm. Bones/joints: Unremarkable. No acute fracture. Soft tissues: Tiny amount of gas around the right chest tube. Otherwise, unremarkable visualized body wall. Otherwise, unremarkable soft tissues. PROCEDURE INFORMATION: Exam: CT Abdomen And Pelvis With Contrast Exam date and time: 06/29/2025 9:52 AM Age: 54 years old Clinical indication: Other: Leukocytosis? TECHNIQUE: Imaging protocol: Computed tomography of the abdomen and pelvis with contrast. Radiation optimization: All CT scans at this facility use at least one of these dose optimization techniques: automated exposure control; mA and/or kV adjustment per patient size (includes targeted exams where dose is matched to clinical indication); or iterative reconstruction. Contrast material: OMNI 350; Contrast volume: 100 ml; Contrast route: INTRAVENOUS (IV); COMPARISON: CT abdomen pelvis con [id number] 05/02/2025 9:24 AM RADIATION DOSE METRICS: Total DLP (mGy-cm): 1080.58 FINDINGS: Tubes, catheters and devices: Unchanged peritoneal dialysis catheter projecting in satisfactory position. Lungs: See above report. Liver: Unchanged hepatomegaly. Otherwise, unremarkable liver. Gallbladder and biliary ducts: Unchanged gallstones in the gallbladder. Otherwise, unremarkable. Pancreas: Normal. No ductal dilation. Spleen: Normal. No splenomegaly. Adrenal glands: Normal. No mass. Kidneys and ureters: Unchanged mild left hydronephrosis and left hydroureter. Otherwise, unremarkable kidneys and ureters. Stomach and bowel: Unremarkable. No obstruction. No mucosal thickening. Appendix: No evidence of appendicitis. Intraperitoneal space: Small amount of free intraperitoneal fluid is likely dialysate. No free air. Vasculature: Unchanged moderate amount of arterial calcification. Otherwise, unremarkable. Lymph nodes: Slightly increased mild para-aortic and pericaval lymphadenopathy. No other lymphadenopathy. Urinary bladder: Unremarkable. Reproductive: Unchanged hysterectomy. Otherwise, unremarkable. Bones/joints: Unremarkable. No acute fracture. Soft tissues: Tiny amount of gas in the anterior body wall is likely due to injections. Otherwise, unremarkable visualized body wall. Otherwise, unremarkable soft tissues. CT/CT chest abdpel w/*[id number] IMPRESSION: 1. Small bilateral pleural effusions. Small amount of gas in the right pleural space. Empyema is possible. 2. A few tiny high density foci abutting the mid right major fissure and lower right pleura could be blood in the right pleural space and/or right lung. 3. Moderate amount of bilateral, mostly dependent and basilar atelectasis and/or pneumonitis. 4. Unchanged mild cardiomegaly. 5. Additional details as above. IMPRESSION: 1. Small amount of free intraperitoneal fluid is likely dialysate. 2. Slightly increased mild para-aortic and pericaval lymphadenopathy. 3. Unchanged hepatomegaly. 4. Unchanged mild left hydronephrosis and left hydroureter. Uncertain etiology. Consider urinary tract infection. 5. Additional details as above.
--- NOTE | 2025-06-29 09:09 | PHA.VACGOAL ---
Vancomycin Goal - Goal Vancomycin Goal:: 10-15 mg/L Vancomycin Indication:: Other (uti) - Therapy Current therapy:: Pip/Tazo Day of therpy:: Day []of [] . Actual body weight (kg): 183 lb - Data Labs: WBC 21.99 10^3/uL (3.29-11.43) H 06/29/25 04:02 RBC 4.07 10^6/uL (3.85-5.65) 06/29/25 04:02 Hgb 10.80 g/dL (11.27-16.99) L 06/29/25 04:02 Hct 34.8 % (36-47) L 06/29/25 04:02 MCV 85.5 fl (85-98) 06/29/25 04:02 MCH 26.5 pg (27-33) L 06/29/25 04:02 MCHC 31.0 g/dL (30-55) 06/29/25 04:02 RDW 15.4 % (12.1-15.1) H 06/29/25 04:02 Sodium 137 mmol/L (136-145) 06/29/25 04:02 Potassium 4.1 mmol/L (3.5-5.1) 06/29/25 04:02 Chloride 96 mmol/L (98-107) L 06/29/25 04:02 Carbon Dioxide 26 mmol/L (22-29) 06/29/25 04:02 Anion Gap 19.1 (5-19) H 06/29/25 04:02 BUN 32 mg/dL (6-20) H 06/29/25 04:02 Creatinine 6.0 mg/dL (0.5-0.9) H* 06/29/25 04:02 GFR Calculation 7.3 mL/min (90-130) L 06/29/25 04:02 Last dialysis session:: Last session (PD RECEIVED 06/28) Treatment plan:: new consult Regimen:: GAVE PATIENT 1500 MG LOADING DOSE. PATIENT RECEIVING HD THIS AFTERNOON. WILL GIVE ADDITIONAL 500 MG FOLLOWING HD. Follow up:: WILL MONITOR DAILY. WILL DRAW LEVEL WITH AM LABS TO DETERMINE IF DOSE IS THERAPEUTIC Rationale:: PATIENT RECEIVED PD YESTERDAY AND HAS HD PLANNED FOR THIS AFTERNOON. STARTING LD NOW. WILL GIVE ADDITIONAL 500 MG DOSE FOLLOWING HD TO REPLACE WHAT IS REMOVED DURING HD. DIAGNOSIS UNCLEAR. WILL DETERMINE WHAT GOAL LEVEL IS APPROPRIATE ONCE DX IS KNOWN.
[2025-06-29] MEDS: iohexol 350 mg/mL 500 mL Btl (per mL) IV (10:03)
--- NOTE | 2025-06-29 10:31 | P.PN_ITS ---
Subjective 2 Subjective: no new complaints on room air Medications: Reviewed: Yes Vitals/I&O/Wt Last Vital Signs Temp 99.6 F 06/29/25 01:14 Pulse 90 06/29/25 06:27 Resp 17 06/29/25 06:15 BP 175/92 06/29/25 06:15 Pulse Ox 92 06/29/25 06:15 O2 Del Method Room Air 06/28/25 21:30 O2 Flow Rate 6 06/27/25 12:22 06/28/25 06/29/25 06/29/25 22:59 06:59 14:59 Intake Total 50 / 50.417 Output Total 0 / 30 Balance 20 20.417 0 / 20.417 Weight last 48 hrs Weight 83.007 kg Weight 83.779 kg Weight 83.007 kg Physical Exam 2 Narrative: awake , alert , no distress PEERLA S1S2 RRR per report Lungs clear Abd - soft , non tender Ext , no edema RIJ tunnelled catheter PD catheter in place Data 06/29/25 04:02 06/29/25 04:02 Micro: Microbiology 06/27/25 12:00 Fungal Smear - Preliminary Pleural Fluid 06/27/25 12:00 Mycobacterial Smear - Preliminary Body Fluids - Pleura 06/27/25 12:00 Gram Stain - Final Pleural Fluid Anaerobic Culture - Preliminary Body Fluid Culture - Preliminary 06/27/25 12:00 Gram Stain - Final Lung - Biopsy Anaerobic Culture - Preliminary Tissue Culture - Preliminary 06/28/25 16:20 Blood Culture - Preliminary Blood SPECIMEN COLLECTED 06/28/25 16:16 Blood Culture - Preliminary Blood SPECIMEN COLLECTED A&P Assessment and plan 1. ESRD (end stage renal disease) on dialysis: Plan: 1. End-stage renal disease: On PD at home but switched to hemodialysis . 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 Patient has right IJ tunneled catheter. - HD done yesterday , HD today - CT done with IV contrast today - senior case manager to set up put pt HD chair 2. Recurrent right pleural effusion, status post pleurodesis and pleural biopsy with PleurX catheter placement today 3. History of hypertension, blood pressure elevated on presentation, resume home meds 4. History of diabetes Patient evaluated using audiovisual cart. Time spent 40 minutes PDMP PDMP Reviewed: Not Reviewed Attestations 2 Medical Necessity Statement*: per medicine Coding Level of Care Code Acute Code for Chg Fwd Diagnoses ESRD (end stage renal disease) on dialysis N18.6; Z99.2
[2025-06-29] MEDS: piperacillin-tazobactam 3.375 GM in sodium chloride 0.9% (plus) 50 ML IV (12:25)
--- NOTE | 2025-06-29 14:17 | P.PN_ITS ---
Subjective 2 Subjective: Patient was seen this morning, currently alert oriented x 3, following all commands, denies any fevers, chills, no cough, she has not had a bowel movement does report weakness, her PleurX catheter is to suction, remains on room air, does not urinate much, does report a history of kidney stones, no flank pain, no headache, no blurry vision, no neck pain, neck stiffness, no chest pain, does have a cough, no abdominal pain Vitals/I&O/Wt Last Vital Signs Temp 98.7 F 06/29/25 08:00 Pulse 81 06/29/25 11:45 Resp 21 H 06/29/25 11:45 BP 142/65 06/29/25 11:45 Pulse Ox 91 06/29/25 11:45 O2 Del Method Room Air 06/29/25 08:00 O2 Flow Rate 6 06/27/25 12:22 06/28/25 06/29/25 06/29/25 22:59 06:59 14:59 Intake Total 50 / 50.417 Output Total 30 / 30 0 / 30 Balance 20 / 20.417 0 / 20.417 Weight last 48 hrs Weight 83.007 kg Weight 83.779 kg Physical Exam 2 Const: COMMON NORMALS: no acute distress and patient oriented x3 Chest: OTHER: Right chest PleurX catheter in place Resp: COMMON NORMALS: normal respiratory effort, No retractions, No use of accessory muscles and clear to auscultation bilaterally AUSCULTATION: clear to auscultation bilaterally Cardio: COMMON NORMALS: regular rate, regular rhythm, S1 normal heart sound present and S2 normal heart sound present RATE: regular rate RHYTHM: r egular rhythm HEART SOUNDS: S1 normal heart sound present and S2 normal heart sound present GI: COMMON NORMALS: Normal to inspection, nondistended, normoactive bowel sounds present and non-tender Extremity: COMMON NORMALS: no pedal edema Neuro: COMMON NORMALS: patient oriented x3 Psych: COMMON NORMALS: mental status grossly normal Data 06/29/25 04:02 06/29/25 04:02 Micro: Microbiology 06/27/25 12:00 Gram Stain - Final Lung - Biopsy Anaerobic Culture - Preliminary Tissue Culture - Preliminary 06/27/25 12:00 Gram Stain - Final Pleural Fluid Anaerobic Culture - Preliminary Body Fluid Culture - Preliminary 06/27/25 12:00 Fungal Smear - Preliminary Pleural Fluid 06/27/25 12:00 Mycobacterial Smear - Preliminary Body Fluids - Pleura 06/28/25 16:20 Blood Culture - Preliminary Blood SPECIMEN COLLECTED 06/28/25 16:16 Blood Culture - Preliminary Blood SPECIMEN COLLECTED A&P Assessment and plan 1. CHF (congestive heart failure): 2. Diastolic heart failure: 3. PAD (peripheral artery disease): 4. Uncontrolled type 2 diabetes mellitus: 5. ESRD (end stage renal disease) on dialysis: 6. Pleural effusion: Plan: Recurrent right pleural effusion - Status post right thoracoscopy, pleural biopsy, pleurodesis, right PleurX catheter placement -1500 cc of yellow fluid removed Plan - Monitor in ICU - Dr. Villarreal on consult - Right PleurX catheter currently on suction - Will monitor closely Leukocytosis? Down to 24,000, neutrophilic, afebrile - Blood cultures ordered - Order CRP 339, Pro-Lucio 4 - Urinalysis - No new rashes - Will order CT chest abdomen pelvis with IV contrast - Continue vancomycin, - Continue Zosyn History of CAD status post stenting - Continue aspirin, Plavix End-stage renal disease on dialysis - Status post peritoneal dialysis last night - Does have HD catheter in place, has not undergone HD as of yet with plans on HD in the near future - Consult nephrology - Plan on dialysis today Type 2 diabetes mellitus - Low-dose sliding scale Full code Lovenox for DVT prophylaxis After today continue IV antibiotics, CT chest abdomen pelvis, speak to pulmonary service,'s plan on dialysis today, PT OT, bowel regiment PDMP PDMP Reviewed: Not Reviewed Attestations 2 Medical Necessity Statement*: Patient requires hospitalization for recurrent right pleural effusion, status post PleurX catheter placement, end-stage renal disease getting dialysis, leukocytosis Diagnoses CHF (congestive heart failure) I50.9 Diastolic heart failure I50.30 PAD (peripheral artery disease) I73.9 Uncontrolled type 2 diabetes mellitus ESRD (end stage renal disease) on dialysis N18.6; Z99.2 Pleural effusion J90
[2025-06-29 14:21] LABS: Glucose Urine UA Trace (Normal); Nitrate Urine Negative (Negative); Specific Gravity, Urine 1.015 (1.005-1.030)
[2025-06-29 14:27] LABS: Add Urine Microscopic? YES
[2025-06-29 14:49] LABS: UA Slide Review UA Slide Review Perf
[2025-06-29] MEDS: ondansetron 2 mg/ML SDV 2 mL 4 MG IVP (16:26)
[2025-06-29] MEDS: HYDROmorphone 0.5 MG/0.5 ML INJ IVP (16:28)
--- NOTE | 2025-06-29 18:32 | PC.NURSE ---
Shift SUmmary: Ambulation: Up to chair for most of the day. Walked with both PT and nursing. 1 person assist mostly due to management of monitoring wires and chest tube. Received CT with contrast. Currently waiting on dialysis, Dialysis nurse is with an emergent patient at time of this note and Lizy Evans should be dialyzed next. Chest Tube: No air leak detected. set to -20cm suction. 20mL of serous drainage.
[2025-06-29] MEDS: heparin, porcine 1,000 unit/mL INJ 10 mL 1000 UNIT IV (21:00)
[2025-06-29] MEDS: heparin, porcine 1,000 unit/mL INJ 10 mL 10000 UNIT INTRACATH (21:33)
[2025-06-30] VITALS (60 sets, daily range): BP systolic 79–160; BP diastolic 54–81; PULSE 78–102; RESP 12–25; TEMP 37.1–37.6; O2SAT 84–95; BMI 31.4
[2025-06-30] MEDS: piperacillin-tazobactam 3.375 GM in sodium chloride 0.9% (plus) 50 ML IV ×3 (00:10→23:31)
--- NOTE | 2025-06-30 00:19 | PC.NURSE ---
Patient receiving dialysis during medication administration times. Delayed meds or patient refused.
[2025-06-30] MEDS: HYDROmorphone 0.5 MG/0.5 ML INJ IVP ×3 (02:41→20:11)
[2025-06-30] MEDS: ondansetron 2 mg/ML SDV 2 mL 4 MG IVP (02:41)
[2025-06-30 03:55] LABS: Hematocrit 30.9 % (36-47); Hemoglobin 9.40 g/dL (11.27-16.99); Mean Corpuscular HGB Conc 30.4 g/dL (30-55); Mean Corpuscular Hemoglobin 25.9 pg (27-33); Mean Corpuscular Volume 85.1 fl (85-98); Nucleated Red Blood Cells % 0 %; Platelet Count 298 10^3/cmm (157-399); Red Blood Count 3.63 10^6/uL (3.85-5.65); White Blood Count 14.22 10^3/uL (3.29-11.43)
[2025-06-30 04:16] LABS: Alanine Aminotransferase < 5 U/L (0-33); Albumin Level 2.7 g/dL (3.5-5.2); Alkaline Phosphatase 76 U/L (35-105); Anion Gap 15.6 (5-19); Aspartate Amino Transferase 13 U/L (0-32); Blood Urea Nitrogen 20 mg/dL (6-20); Calcium 8.2 mg/dL (8.5-10.5); Carbon Dioxide 26 mmol/L (22-29); Chloride 98 mmol/L (98-107); Globulin 2.8 g/dL (1.3-4.6); Glucose 121 mg/dL (65-115); Osmolality Calculated 286 mOsm/kg (285-295); Potassium 3.6 mmol/L (3.5-5.1); Sodium 136 mmol/L (136-145); Total Protein 5.5 g/dL (6.6-8.7)
[2025-06-30 04:28] LABS: Creatinine Clr Calc Pharmacy 17.1868
--- NOTE | 2025-06-30 08:04 | XRR_ITS ---
PROCEDURE INFORMATION: Exam: XR Chest Exam date and time: 06/30/2025 8:29 AM Age: 54 years old Clinical indication: Device placement; Chest tube; Additional info: Eval RT pleurex cath TECHNIQUE: Imaging protocol: Radiologic exam of the chest. Views: 1 view. COMPARISON: CT chest abdpel w/*[id number] 06/29/2025 9:52 AM FINDINGS: Tubes, catheters and devices: Right basilar PleurX catheter. Small right-sided pleural effusion. Right-sided dialysis catheter is at cavoatrial junction. Lungs: Pulmonary vessels are within normal limits. Pleural spaces: Trapped fluid in the minor fissure. Small left-sided pleural effusion. Heart/Mediastinum: Cardiomegaly is seen. Bones/joints: Unremarkable. XR/XR chest 1V portable [id number] IMPRESSION: 1. Right basilar PleurX catheter. Small right-sided pleural effusion. 2. Small left-sided pleural effusion. 3. Cardiomegaly.
[2025-06-30] MEDS: NIFEdipine ER (24 hr) 30 mg Tablet 60 MG PO (08:50)
--- NOTE | 2025-06-30 09:44 | P.PN_ITS ---
Subjective 2 Subjective: no new c/o Medications: Reviewed: Yes Vitals/I&O/Wt Last Vital Signs Temp 99.4 F 06/30/25 04:00 Pulse 82 06/30/25 08:30 Resp 16 06/30/25 08:30 BP 134/63 06/30/25 08:30 Pulse Ox 90 06/30/25 08:30 O2 Del Method Room Air 06/29/25 18:00 O2 Flow Rate 6 06/27/25 12:22 06/29/25 06/30/25 06/30/25 22:59 06:59 14:59 Intake Total 350 / 750 550 / 1300 300 / 300 Output Total 40 / 240 3497 / 3737 Balance 310 / 510 -2947 / -2437 300 / 300 Weight last 48 hrs Weight 83 kg Weight 83 kg Weight 83.007 kg Weight 82.2 kg Physical Exam 2 Narrative: awake , alert , no distress PEERLA S1S2 RRR per report Lungs clear Abd - soft , non tender Ext , no edema RIJ tunnelled catheter PD catheter in place Data 06/30/25 03:19 06/30/25 03:19 Micro: Microbiology 06/29/25 14:10 Urine Culture - Preliminary Urine,Clean Catch 06/28/25 16:20 Blood Culture - Preliminary Blood NEGATIVE TO DATE 06/28/25 16:16 Blood Culture - Preliminary Blood NEGATIVE TO DATE 06/27/25 12:00 Gram Stain - Final Lung - Biopsy Anaerobic Culture - Preliminary Tissue Culture - Preliminary 06/27/25 12:00 Gram Stain - Final Pleural Fluid Anaerobic Culture - Preliminary Body Fluid Culture - Preliminary A&P Assessment and plan 1. ESRD (end stage renal disease) on dialysis: Plan: 1. End-stage renal disease: On PD at home but switched to hemodialysis . Patient's apartment hotel manager planning to switch to hemodialysis for few weeks. Patient has right IJ tunneled catheter. - HD done tuesday and tuesday -Next HD tomorrow - disease case manager to set up out pt HD chair 2. Recurrent right pleural effusion, status post pleurodesis and pleural biopsy with PleurX catheter placement 3. History of hypertension, blood pressure elevated on presentation, resume home meds 4. History of diabetes Patient evaluated using audiovisual cart. Time spent 40 minutes PDMP PDMP Reviewed: Not Reviewed Attestations 2 Medical Necessity Statement*: per soumyane Coding Level of Care Code Acute Code for Chg Fwd Diagnoses ESRD (end stage renal disease) on dialysis N18.6; Z99.2
[2025-06-30 13:34] LABS: Pleural Fld Adenosine Deami 8.3 U/L (<9.2)
--- NOTE | 2025-06-30 15:28 | P.PN_ITS ---
Subjective 2 Subjective: Patient was seen this morning, she tells me that she did not sleep much last night, she does have right sided chest wall discomfort around PleurX catheter, denies any shortness of breath, no cough, no abdominal pain Vitals/I&O/Wt Last Vital Signs Temp 99.4 F 06/30/25 04:00 Pulse 82 06/30/25 14:00 Resp 17 06/30/25 14:00 BP 124/71 06/30/25 14:00 Pulse Ox 94 06/30/25 14:00 O2 Del Method Room Air 06/29/25 18:00 O2 Flow Rate 6 06/27/25 12:22 06/30/25 06/30/25 06/30/25 06:59 14:59 22:59 Intake Total 550 / 1300 600 / 600 Output Total 3497 / 3737 Balance -2947 / -2437 600 / 600 Weight last 48 hrs Weight 83 kg Weight 83 kg Weight 83.007 kg Physical Exam 2 Const: COMMON NORMALS: no acute distress and patient oriented x3 Resp: COMMON NORMALS: normal respiratory effort, No retractions, No use of accessory muscles and clear to auscultation bilaterally AUSCULTATION: clear to auscultation bilaterally OTHER: Right chest PleurX catheter in place Cardio: COMMON NORMALS: regular rate, regular rhythm, S1 normal heart sound present and S2 normal heart sound present RATE: regular rate RHYTHM: r egular rhythm HEART SOUNDS: S1 normal heart sound present and S2 normal heart sound present GI: COMMON NORMALS: Normal to inspection, nondistended, normoactive bowel sounds present and non-tender Extremity: COMMON NORMALS: no pedal edema Neuro: COMMON NORMALS: patient oriented x3 Psych: COMMON NORMALS: mental status grossly normal Data 06/30/25 03:19 06/30/25 03:19 Micro: Microbiology 06/27/25 12:00 Gram Stain - Final Pleural Fluid Anaerobic Culture - Preliminary Body Fluid Culture - Final 06/27/25 12:00 Gram Stain - Final Lung - Biopsy Anaerobic Culture - Preliminary Tissue Culture - Final 06/29/25 14:10 Urine Culture - Preliminary Urine,Clean Catch 06/28/25 16:20 Blood Culture - Preliminary Blood NEGATIVE TO DATE 06/28/25 16:16 Blood Culture - Preliminary Blood NEGATIVE TO DATE A&P Assessment and plan 1. CHF (congestive heart failure): 2. Diastolic heart failure: 3. PAD (peripheral artery disease): 4. Uncontrolled type 2 diabetes mellitus: 5. ESRD (end stage renal disease) on dialysis: 6. Pleural effusion: Plan: Recurrent right pleural effusion - Status post right thoracoscopy, pleural biopsy, pleurodesis, right PleurX catheter placement -1500 cc of yellow fluid removed Plan - Monitor in ICU - Dr. Villarreal on consult - Right PleurX catheter currently on suction - Will monitor closely Leukocytosis? Down to 24,000, neutrophilic, afebrile CT angiogram of chest and abdomen CT/CT chest abdpel w/*[id number] IMPRESSION: 1. Small bilateral pleural effusions. Small amount of gas in the right pleural space. Empyema is possible. 2. A few tiny high density foci abutting the mid right major fissure and lower right pleura could be blood in the right pleural space and/or right lung. 3. Moderate amount of bilateral, mostly dependent and basilar atelectasis and/or pneumonitis. 4. Unchanged mild cardiomegaly. 5. Additional details as above. IMPRESSION: 1. Small amount of free intraperitoneal fluid is likely dialysate. 2. Slightly increased mild para-aortic and pericaval lymphadenopathy. 3. Unchanged hepatomegaly. 4. Unchanged mild left hydronephrosis and left hydroureter. Uncertain etiology. Consider urinary tract infection. 5. Additional details as above. - Blood cultures ordered, so far no growth -Sputum cultures so far no growth -Pleural studies so far no growth -Right pleural biopsy so far no growth - Order CRP 339, Pro-Lucio 4 - Urinalysis, possible evidence of UTI, urine cultures pending - No new rashes - Continue vancomycin, - Continue Zosyn History of CAD status post stenting - Continue aspirin, Plavix End-stage renal disease on dialysis - Status post peritoneal dialysis last night - Does have HD catheter in place, status post 1 session of inpatient dialysis - Consult nephrology - Plan on dialysis Medel Type 2 diabetes mellitus - Low-dose sliding scale Full code Lovenox for DVT prophylaxis Plan for today IV antibiotics, monitor respiratory status, PT OT, bowel regimen PDMP PDMP Reviewed: Not Reviewed Attestations 2 Medical Necessity Statement*: Patient requires hospitalization recurrent right pleural effusion status post PleurX catheter placement, leukocytosis, UTI, deconditioning Diagnoses CHF (congestive heart failure) I50.9 Diastolic heart failure I50.30 PAD (peripheral artery disease) I73.9 Uncontrolled type 2 diabetes mellitus ESRD (end stage renal disease) on dialysis N18.6; Z99.2 Pleural effusion J90
[2025-06-30] MEDS: polyethylene glycol 3350 Pkt 17 gm PO (15:40)
[2025-07-01] VITALS (52 sets, daily range): BP systolic 130–163; BP diastolic 60–84; PULSE 72–88; RESP 12–25; TEMP 37.3–37.4; O2SAT 88–96
[2025-07-01] MEDS: HYDROmorphone 0.5 MG/0.5 ML INJ IVP ×2 (02:54→20:42)
[2025-07-01 03:42] LABS: Hematocrit 29.5 % (36-47); Hemoglobin 9.10 g/dL (11.27-16.99); Mean Corpuscular HGB Conc 30.8 g/dL (30-55); Mean Corpuscular Hemoglobin 26.5 pg (27-33); Mean Corpuscular Volume 85.8 fl (85-98); Nucleated Red Blood Cells % 0 %; Platelet Count 310 10^3/cmm (157-399); Red Blood Count 3.44 10^6/uL (3.85-5.65); White Blood Count 11.27 10^3/uL (3.29-11.43)
[2025-07-01 04:06] LABS: Alanine Aminotransferase < 5 U/L (0-33); Albumin Level 2.6 g/dL (3.5-5.2); Alkaline Phosphatase 70 U/L (35-105); Anion Gap 18.1 (5-19); Aspartate Amino Transferase 12 U/L (0-32); Blood Urea Nitrogen 29 mg/dL (6-20); Calcium 8.1 mg/dL (8.5-10.5); Carbon Dioxide 27 mmol/L (22-29); Chloride 95 mmol/L (98-107); Globulin 3.0 g/dL (1.3-4.6); Glucose 117 mg/dL (65-115); Osmolality Calculated 289 mOsm/kg (285-295); Potassium 4.1 mmol/L (3.5-5.1); Sodium 136 mmol/L (136-145); Total Protein 5.6 g/dL (6.6-8.7)
[2025-07-01 04:07] LABS: Creatinine Clr Calc Pharmacy 13.1429
[2025-07-01] MEDS: polyethylene glycol 3350 Pkt 17 gm PO (09:50)
[2025-07-01] MEDS: NIFEdipine ER (24 hr) 30 mg Tablet 60 MG PO (09:50)
--- NOTE | 2025-07-01 09:51 | PM.PN ---
Subjective Subjective: on 2L NC Medications: Reviewed: Yes Vitals/I&O/Wt Last Vital Signs Temp 99.4 F 07/01/25 05:54 Pulse 80 07/01/25 06:00 Resp 18 07/01/25 06:00 BP 141/67 07/01/25 06:00 Pulse Ox 94 07/01/25 06:00 O2 Del Method Nasal Cannula 07/01/25 02:30 O2 Flow Rate 2 07/01/25 02:30 06/30/25 07/01/25 07/01/25 22:59 06:59 14:59 Intake Total 590 / 1190 50 / 1240 Output Total 150 / 170 Balance 570 / 1170 -100 / 1070 Weight last 48 hrs Weight 83 kg Weight 83 kg Weight 83 kg Physical Exam Narrative: awake , alert , no distress PEERLA S1S2 RRR per report Lungs clear Abd - soft , non tender Ext , no edema RIJ tunnelled catheter PD catheter in place Data 07/01/25 03:10 07/01/25 03:10 Micro: Microbiology 06/27/25 12:00 Gram Stain - Final Pleural Fluid Anaerobic Culture - Preliminary Body Fluid Culture - Final 06/27/25 12:00 Gram Stain - Final Lung - Biopsy Anaerobic Culture - Preliminary Tissue Culture - Final 06/29/25 14:10 Urine Culture - Preliminary Urine,Clean Catch A&P Assessment and plan 1. ESRD (end stage renal disease) on dialysis: Plan: 1. End-stage renal disease: On PD at home but switched to hemodialysis . switched to HD due to volume overlaod. Patient has right IJ tunneled catheter. - HD done tuesday and tuesday -Next HD today - bilingual patient support caseworker to set up out pt HD chair 2. Recurrent right pleural effusion, status post pleurodesis and pleural biopsy with PleurX catheter placement 3. History of hypertension, blood pressure elevated on presentation, resume home meds 4. History of diabetes Patient evaluated using audiovisual cart. Time spent 40 minutes PDMP PDMP Reviewed: Not Reviewed Attestations Medical Necessity Statement*: per shona Coding Level of Care Code Acute Code for Chg Fwd Diagnoses ESRD (end stage renal disease) on dialysis N18.6; Z99.2
[2025-07-01] MEDS: piperacillin-tazobactam 3.375 GM in sodium chloride 0.9% (plus) 50 ML IV (11:06)
--- NOTE | 2025-07-01 12:18 | XR_ITS ---
WS: [id number] XR chest 1V portable [id number] REASON FOR EXAM: Followup post pleurodesis FINDINGS: Chest relatively unchanged compared to 06/30/2025. Right IJ dialysis catheter unchanged compared to 06/30/2025. Mild cardiomegaly. Right Pleurx catheter placement in the extreme inferior and medial pleural space. Right pleural thickening and/or pleural effusion. Loculated fluid in the right major fissure. No new findings. XR/XR chest 1V portable [id number] IMPRESSION: Stable abnormal chest.
--- NOTE | 2025-07-01 12:20 | PC.SOCIAL ---
IMM Updated Updated pt on IMM. No questions voiced. Provided pt a copy. Initialed, dated, & timed copy in chart.
--- NOTE | 2025-07-01 12:24 | P.DS_ITS ---
Discharge Providers Date of Admission: 06/27/25 12:00 Date of Discharge: July 01, 2025 Attending Provider at Admission: Geri Villarreal MD Attending Provider at Discharge: Dylan Garza MD Primary Care Provider: SEGUN Mulligan Diagnoses at Discharge Discharge Diagnosis 1. ESRD (end stage renal disease) on dialysis: Reason for Visit Reason for Visit: J90 Hospital Course Hospital Course Lizy Evans is a 54 year old female with a past medical history of end-st age renal disease on peritoneal dialysis, also has a hemodialysis catheter placed and plans for hemodialysis in the near future, history of CAD on aspirin, Plavix, history of type 2 diabetes mellitus, insulin therapy who is admitted to [facility], status post right dorsal DANIELA, pleural biopsy, pleurodesis with PleurX drain placement. Currently patient alert oriented x 3, following commands, her PleurX catheter is to suction, she tells me that she had peritoneal dialysis last night, denies any chest pain, no palpitation, no shortness of breath, but her right PleurX catheter currently hooked up to suction is causing pain, Patient was admitted to [facility], for recurrent right pleural effusion - Status post right thoracoscopy, pleural biopsy, pleurodesis, right PleurX catheter placement -1500 cc of yellow fluid removed - So far cultures no growth - Discharge with PleurX catheter in place, with a follow-up with pulmonary as outpatient Patient's hospitalization was complicated by end-stage renal disease - With fluid overload - She has PD - With plans on converting to HD over the next 2 weeks, and has an HD catheter placed - She is status post 2 sessions of inpatient hemodialysis - Will be discharged on outpatient hemodialysis, Tuesday//Tuesday Leukocytosis, likely secondary to urinary tract infection -She did have a broad-spectrum workup CT angiogram of chest and abdomen CT/CT chest abdpel w/*[id number] IMPRESSION: 1. Small bilateral pleural effusions. Small amount of gas in the right pleural space. Empyema is possible. 2. A few tiny high density foci abutting the mid right major fissure and lower right pleura could be blood in the right pleural space and/or right lung. 3. Moderate amount of bilateral, mostly dependent and basilar atelectasis and/or pneumonitis. 4. Unchanged mild cardiomegaly. 5. Additional details as above. IMPRESSION: 1. Small amount of free intraperitoneal fluid is likely dialysate. 2. Slightly increased mild para-aortic and pericaval lymphadenopathy. 3. Unchanged hepatomegaly. 4. Unchanged mild left hydronephrosis and left hydroureter. Uncertain etiology. Consider urinary tract infection. 5. Additional details as above. -No abdominal pain, PD catheter site looks clean and dry -Right HD catheter site looks clean and dry - Blood cultures ordered, so far no growth -Sputum cultures so far no growth -Pleural studies so far no growth -Right pleural biopsy so far no growth - Inflammatory markers trending down remains, afebrile, patient relatively asymptomatic - Urinalysis with evidence of UTI, urine cultures pending, discharged on p.o. antibiotics - No new rashes - Initially managed with IV antibiotics vancomycin, Zosyn - Will discharge on p.o. cefdinir for urinary tract infection - Patient was advised if she would have any fevers or chills go to the emergency room Physical Exam Const: COMMON NORMALS: no acute distress and patient oriented x3 Chest: OTHER: Right chest HD catheter in place area looks clean and dry Right chest, flank, PleurX catheter placed, area looks clean and dry Resp: COMMON NORMALS: normal respiratory effort, No retractions, No use of accessory muscles and clear to auscultation bilaterally AUSCULTATION: clear to auscultation bilaterally Cardio: COMMON NORMALS: regular rate, regular rhythm, S1 normal heart sound present and S2 normal heart sound present RATE: regular rate RHYTHM: regular rhythm HEART SOUNDS: S1 normal heart sound present and S2 normal he art sound present GI: COMMON NORMALS: Normal to inspection, nondistended, normoactive bowel sounds present and non-tender OTHER: PD catheter in place, area looks clean and dry Extremity: COMMON NORMALS: no pedal edema Neuro: COMMON NORMALS: patient oriented x3, CN's II-XII intact bilaterally and moves all extremities Psych: COMMON NORMALS: mental status grossly normal Discharge Data Studies Completed and Pending Completed Studies During Hospitalization Category Date Time Status CT chest abdomen pelvis [CT chest abdpel w/*[id number] Cat Scan 06/29/25 08:41 Completed ] Stat XR chest 1V portable [id number] Routine Exams 06/28/25 07:00 Completed XR chest 1V portable [id number] Routine Exams 06/29/25 07:00 Completed XR chest 1V portable [id number] Routine Exams 06/30/25 08:04 Completed XR chest 1V portable [id number] Stat Exams 06/27/25 12:10 Completed Pending at discharge Category Date Time Status XR chest 1V portable [id number] Stat Exams 07/01/25 12:18 Ordered Amylase, Pleural Fluid Routine Lab 06/27/25 12:00 Received Anaerobic Culture Routine Lab 06/27/25 12:00 Results Anaerobic Culture Routine Lab 06/27/25 12:00 Results Blood Culture Stat Lab 06/28/25 16:20 Results Body Fluid Culture Routine Lab 06/27/25 12:00 Results CDIFF [C.Diff PCR (Lab)] Routine Lab 06/28/25 16:12 Uncollected Fungal Culture not HR/SK/BL Routine Lab 06/27/25 12:00 Results Gram Stain Routine Lab 06/27/25 12:00 Results Mycobacteria, Culture w/Fluor Routine Lab 06/27/25 12:00 Results Tissue Culture and Gram Stain Routine Lab 06/27/25 12:00 Results Pathology: Surgical [PTH] Routine Pth 06/27/25 12:32 Received Radiology Impressions Chest/Abdomen/Pelvis CT 06/29/25 08:41 IMPRESSION: 1. Small bilateral pleural effusions. Small amount of gas in the right pleural space. Empyema is possible. 2. A few tiny high density foci abutting the mid right major fissure and lower right pleura could be blood in the right pleural space and/or right lung. 3. Moderate amount of bilateral, mostly dependent and basilar atelectasis and/or pneumonitis. 4. Unchanged mild cardiomegaly. 5. Additional details as above. IMPRESSION: 1. Small amount of free intraperitoneal fluid is likely dialysate. 2. Slightly increased mild para-aortic and pericaval lymphadenopathy. 3. Unchanged hepatomegaly. 4. Unchanged mild left hydronephrosis and left hydroureter. Uncertain etiology. Consider urinary tract infection. 5. Additional details as above. Chest X-Ray 06/30/25 08:04 IMPRESSION: 1. Right basilar PleurX catheter. Small right-sided pleural effusion. 2. Small left-sided pleural effusion. 3. Cardiomegaly. Laboratory Results WBC 11.27 10^3/uL (3.29-11.43) 07/01/25 03:10 RBC 3.44 10^6/uL (3.85-5.65) L 07/01/25 03:10 Hgb 9.10 g/dL (11.27-16.99) L 07/01/25 03:10 Hct 29.5 % (36-47) L 07/01/25 03:10 MCV 85.8 fl (85-98) 07/01/25 03:10 MCH 26.5 pg (27-33) L 07/01/25 03:10 MCHC 30.8 g/dL (30-55) 07/01/25 03:10 RDW 15.0 % (12.1-15.1) 07/01/25 03:10 Plt Count 310 10^3/cmm (157-399) 07/01/25 03:10 MPV 9.9 fL (7.4-10.4) 07/01/25 03:10 Neut % (Auto) 73.4 % 07/01/25 03:10 Lymph % (Auto) 13.1 % 07/01/25 03:10 [place] % (Auto) 9.1 % 07/01/25 03:10 Eos % (Auto) 2.2 % 07/01/25 03:10 Baso % (Auto) 0.4 % 07/01/25 03:10 Neut # (Auto) 8.28 10^3/uL (1.8-7.7) H 07/01/25 03:10 Lymph # (Auto) 1.5 10^3/uL (0.8-4.8) 07/01/25 03:10 [place] # (Auto) 1.0 10^3/uL (0.2-0.9) H 07/01/25 03:10 Eos # (Auto) 0.3 10^3/uL (0.0-0.8) 07/01/25 03:10 Baso # (Auto) 0.0 10^3/uL (0.0-0.1) 07/01/25 03:10 Nucleated RBC % (auto) 0 % 07/01/25 03:10 Total Counted Not Reportable 06/27/25 12:00 Nucleated RBCs # 0.0 /100WBC 07/01/25 03:10 Sodium 136 mmol/L (136-145) 07/01/25 03:10 Potassium 4.1 mmol/L (3.5-5.1) 07/01/25 03:10 Chloride 95 mmol/L (98-107) L 07/01/25 03:10 Carbon Dioxide 27 mmol/L (22-29) 07/01/25 03:10 Anion Gap 18.1 (5-19) 07/01/25 03:10 BUN 29 mg/dL (6-20) H 07/01/25 03:10 Creatinine 5.1 mg/dL (0.5-0.9) H 07/01/25 03:10 GFR Calculation 8.8 mL/min (90-130) L 07/01/25 03:10 Glucose 117 mg/dL (65-115) H 07/01/25 03:10 POC Glucose 161 mg/dL (70-110) H 07/01/25 11:00 Estimat Average Glucose 120 06/27/25 14:07 Hemoglobin A1c 5.8 % (4.0-6.0) 06/27/25 14:07 Calculated Osmolality 289 mOsm/kg (285-295) 07/01/25 03:10 Calcium 8.1 mg/dL (8.5-10.5) L 07/01/25 03:10 Phosphorus 6.6 mg/dL (2.5-4.5) H 06/27/25 14:07 Magnesium 1.8 mg/dL (1.7-2.3) 06/27/25 14:07 Total Bilirubin 0.2 mg/dL (0.15-1.2) 07/01/25 03:10 AST 12 U/L (0-32) 07/01/25 03:10 ALT < 5 U/L (0-33) 07/01/25 03:10 Alkaline Phosphatase 70 U/L (35-105) 07/01/25 03:10 C-Reactive Protein 227.0 mg/L (0.0-4.9) H 07/01/25 03:10 NT-Pro-B Natriuret Pep 29688 pg/mL (0-125) H 06/27/25 14:07 Total Protein 5.6 g/dL (6.6-8.7) L 07/01/25 03:10 Albumin 2.6 g/dL (3.5-5.2) L 07/01/25 03:10 Globulin 3.0 g/dL (1.3-4.6) 07/01/25 03:10 Procalcitonin 4.08 ng/mL (0-0.5) H 06/29/25 04:02 Urine Color Yellow (Yellow) 06/29/25 14:10 Urine Appearance Cloudy (CLEAR) A 06/29/25 14:10 Urine pH 8.5 (5-7) A 06/29/25 14:10 Ur Specific [place] 1.015 (1.005-1.030) 06/29/25 14:10 Urine Protein 3+ (Negative) A 06/29/25 14:10 Urine Glucose (UA) Trace (Normal) H 06/29/25 14:10 Urine Ketones Negative (Negative) 06/29/25 14:10 Urine Blood Non-haemolysed trace (Negative) 06/29/25 14:10 Urine Nitrate Negative (Negative) 06/29/25 14:10 Urine Bilirubin Negative (Negative) 06/29/25 14:10 Urine Urobilinogen 0.2 mg/dL (Negative) 06/29/25 14:10 Ur Leukocyte Esterase 2+ (Negative) A 06/29/25 14:10 Urine RBC 11-20 /hpf (0-2) H 06/29/25 14:10 Urine WBC 51-100 /hpf (0-5) H 06/29/25 14:10 Ur Squamous Epith Cells 21-50 /hpf (0-5) H 06/29/25 14:10 Amorphous Sediment Not Reportable 06/29/25 14:10 Urine Bacteria None seen /hpf (NONE) 06/29/25 14:10 Hyaline Casts 21.48 /lpf 06/29/25 14:10 Fluid Hematocrit 0.0 % 06/27/25 12:00 Fluid Creatinine 8.88 (0.5-0.9) H 06/27/25 12:00 Fluid Cholesterol Cancelled 06/27/25 12:00 Fluid Triglycerides 24 mg/dL (0-150) 06/27/25 12:00 Pleural Color Pale yellow (Pale Yellow) 06/27/25 12:00 Pleural Appearance Cloudy (CLEAR) 06/27/25 12:00 Pleural pH 9.00 (6.5-7.5) H 06/27/25 11:15 Pleural WBC 273.000 /uL (0-1000) 06/27/25 12:00 Pleural RBC 3.000 10^3/uL 06/27/25 12:00 Pleural Other Cells Not Reportable 06/27/25 12:00 Pleural Polynuclear % 4 % 06/27/25 12:00 Pleural Mononuclear % 96 % 06/27/25 12:00 Pleural Total Protein 2.9 g/dL 06/27/25 12:00 Pleural Albumin 1.6 g/dL 06/27/25 12:00 Pleural LDH 162 U/L 06/27/25 12:00 Pleural Glucose 132.0 mg/dL 06/27/25 12:00 Pleural Cholesterol 31 mg/dL 06/27/25 12:00 Pleur Adenosine Deamin 8.3 U/L (<9.2) 06/27/25 12:00 Random Vancomycin 16.9 ug/mL (20.0-40.0) L 07/01/25 03:10 Influenza A (PCR) Negative (Negative) 06/28/25 17:58 Influenza Type B (PCR) Negative (Negative) 06/28/25 17:58 RSV (PCR) Negative (Negative) 06/28/25 17:58 SARS-CoV-2 (PCR) Negative (Negative) 06/28/25 17:58 Path Cons w/Slide Yes 06/27/25 12:00 Misc Test Reference Cancelled 06/27/25 12:00 Misc Test Reference Cancelled 06/27/25 12:00 Vitals Last Vital Signs Temp 99.4 F 07/01/25 05:54 Pulse 86 07/01/25 12:00 Resp 22 H 07/01/25 12:00 BP 163/70 07/01/25 12:00 Pulse Ox 94 07/01/25 12:00 O2 Del Method Nasal Cannula 07/01/25 02:30 O2 Flow Rate 2 07/01/25 02:30 Discharge Plan Discharge Patient Disposition: Home Condition: Stable Prescriptions: New insulin aspart U-100 [Novolog FlexPen U-100 Insulin] 100 unit/mL (3 mL) insulin pen See Rx Instructions .ROUTE .COMPLEX Qty: 15 0RF Rx Instructions: Inject, subcut, 3 times daily, after meals, based on low-dose sliding scale cefdinir 300 mg capsule 300 mg PO BID 5 Days Qty: 10 0RF Continued nifedipine 60 mg tablet extended release 60 mg PO DAILY (DME) diabetic shoes with 3 inserts See Rx Instructions .Route .MEDSUPPLY Qty: 1 0RF Rx Instructions: As directed to the shoe david calcitriol 0.25 mcg capsule 0.25 mcg PO DAILY RenaPlex-D 800 mcg-12.5 mg -2,000 unit tablet 1 tab PO DAILY sodium bicarbonate 650 mg tablet 650 mg PO BID duloxetine 30 mg capsule,delayed release(DR/EC) 30 mg PO .q am Qty: 30 3RF Rx Instructions: Take one capsule by mouth once a day; stop 60 mg dose (DME) FreeStyle [place] 3 Plus Sensor Device See Rx Instructions .Route Qty: 2 3RF Rx Instructions: As directed clopidogrel 75 mg tablet 75 mg PO DAILY Qty: 90 3RF aspirin 81 mg capsule 81 mg PO DAILY Qty: 90 3RF cetirizine 10 mg Tablet 10 mg PO DAILY PRN (Reason: Allergy Symptoms) torsemide 100 mg tablet 100 mg PO DAILY sevelamer carbonate 800 mg tablet 800 mg PO TID omeprazole 20 mg Capsule,Delayed Release(Dr/Ec) 20 mg PO DAILY hydralazine 50 mg tablet 100 mg PO TID atorvastatin 40 mg tablet 40 mg PO DAILY Rx Instructions: TAKE 1 TABLET BY MOUTH ONCE DAILY AT 5PM lisinopril 40 mg tablet 40 mg PO DAILY Rx Instructions: Take 1 tablet by mouth once daily gentamicin 0.1 % cream See Rx Instructions .ROUTE .COMPLEX Rx Instructions: APPLY TO PD (PERITONEAL DIALYSIS) SITE ONCE A DAY (APPLY AFTER CLEANING SITE). albuterol sulfate 90 mcg/actuation HFA aerosol inhaler 1 puff INHALATION BID PRN (Reason: Shortness Of Breath Or Wheezing) ondansetron 4 mg tablet,disintegrating 4 mg PO Q6H PRN (Reason: Nausea And Vomiting) Changed carvedilol 25 mg tablet 12.5 mg PO BID 30 Days Qty: 30 0RF Discontinued insulin lispro 100 unit/mL solution See Rx Instructions .ROUTE .COMPLEX Qty: 10 0RF Dose Instruction: INJECT 2-4 UNITS BEFORE HIGH CARB MEALS. DISCARD VIAL 28 DAYS AFTER FIRST USE. Rx Instructions: INJECT 2-4 UNITS BEFORE HIGH CARB MEALS. DISCARD VIAL 28 DAYS AFTER FIRST USE. Discharge Order = DC NOW: Discharge Order (Routine); Ordered 07/01/25 Ordered By: Dylan Garza Referrals: [facility] - [Outside] Referral Note: Hemodialysis is on , , Sat at 1:30pm Discharge Diet: Cardiac Discharge Activity: Resume usual activity Patient Instructions: Cefdinir (By mouth), Insulin Aspart, Recombinant (By injection) (Novolog, Novolog..., Dyspnea, Pleural Effusion (DC), Opioid Safety, Post Anesthesia Care, Patient Portal & Barak Instructions Activity Restrictions/Additional Instructions: - Continue dialysis, Tuesdays, , Tuesday -Please monitor your blood sugars closely -Monitor your blood sugars 3 times daily as after meals -Please record your blood sugars, and a blood sugar log -For your NovoLog -Please inject blood sugar after meals based on sliding scale provided -Do not inject insulin if you do not eat as hypoglycemia kills -This is a NovoLog sliding scale -Insulin sliding ?fingerstick? Insulin ?141-180?0 units/sq 181-220?2 units/sq ?221-260?4 units/sq ?261-300 6 units/sq ?301-350?8 units/sq ?351-400 10 units/sq ?401-450?12 units/sq >450? 14units/sq -If your blood sugar is greater than 500 go to the emergency room -If your blood sugar is less than 60 or at anytime you feel lightheaded or dizzy or diaphoretic or have chest palpitations check your blood sugar, and eat a hard candy or drink orange juice and go immediately to the emergency room -Remember hypoglycemia kills, so if his blood sugar is less than 60 we have to increase it by taking in a sugary meal such as a hard candy or orange juice and go to the emergency room -If you have any questions please call us where here to help Discharge Attestations Time Spent in Discharge Care*: greater than 30 min Quality Metrics Clinical Quality Measures [ No reported AMI, CVA or VTE this stay] Coding Level of Care Code 17978 Total time (in minutes) for Discharge: 45 Diagnoses ESRD (end stage renal disease) on dialysis N18.6; Z99.2
--- NOTE | 2025-07-01 16:43 | P.PN_ITS ---
Subjective 2 Subjective: Patient was seen this morning, no complaints, no fevers, chills, no cough no lightheadedness, dizziness Vitals/I&O/Wt Last Vital Signs Temp 99.4 F 07/01/25 05:54 Pulse 82 07/01/25 16:22 Resp 17 07/01/25 14:00 BP 151/69 07/01/25 16:00 Pulse Ox 94 07/01/25 16:00 O2 Del Method Nasal Cannula 07/01/25 02:30 O2 Flow Rate 2 07/01/25 02:30 07/01/25 07/01/25 07/01/25 06:59 14:59 22:59 Intake Total 50 / 1240 520 / 520 Output Total 150 / 170 Balance -100 / 1070 520 / 520 Weight last 48 hrs Weight 83 kg Weight 83 kg Weight 83 kg Physical Exam 2 Const: COMMON NORMALS: no acute distress and patient oriented x3 Resp: COMMON NORMALS: normal respiratory effort, No retractions, No use of accessory muscles and clear to auscultation bilaterally AUSCULTATION: clear to auscultation bilaterally Cardio: COMMON NORMALS: regular rate, regular rhythm, S1 normal heart sound present and S2 normal heart sound present RATE: regular rate RHYTHM: r egular rhythm HEART SOUNDS: S1 normal heart sound present and S2 normal heart sound present GI: COMMON NORMALS: Normal to inspection, nondistended, normoactive bowel sounds present and non-tender Extremity: COMMON NORMALS: no calf tenderness and no pedal edema Neuro: COMMON NORMALS: patient oriented x3 Psych: COMMON NORMALS: mental status grossly normal Skin: NARRATIVE SKIN EXAM: PleurX catheter in place Data 07/01/25 03:10 07/01/25 03:10 Micro: Microbiology 06/27/25 12:00 Gram Stain - Final Lung - Biopsy Anaerobic Culture - Preliminary Tissue Culture - Final 06/27/25 12:00 Gram Stain - Final Pleural Fluid Anaerobic Culture - Preliminary Body Fluid Culture - Final 06/29/25 14:10 Urine Culture - Final Urine,Clean Catch A&P Assessment and plan 1. CHF (congestive heart failure): 2. Diastolic heart failure: 3. PAD (peripheral artery disease): 4. Uncontrolled type 2 diabetes mellitus: 5. ESRD (end stage renal disease) on dialysis: 6. Pleural effusion: Plan: Recurrent right pleural effusion - Status post right thoracoscopy, pleural biopsy, pleurodesis, right PleurX catheter placement -1500 cc of yellow fluid removed Plan - Monitor in ICU - Dr. Villarreal on consult - Right PleurX catheter currently on suction - Will monitor closely Leukocytosis? Down to 24,000, neutrophilic, afebrile CT angiogram of chest and abdomen CT/CT chest abdpel w/*[id number] IMPRESSION: 1. Small bilateral pleural effusions. Small amount of gas in the right pleural space. Empyema is possible. 2. A few tiny high density foci abutting the mid right major fissure and lower right pleura could be blood in the right pleural space and/or right lung. 3. Moderate amount of bilateral, mostly dependent and basilar atelectasis and/or pneumonitis. 4. Unchanged mild cardiomegaly. 5. Additional details as above. IMPRESSION: 1. Small amount of free intraperitoneal fluid is likely dialysate. 2. Slightly increased mild para-aortic and pericaval lymphadenopathy. 3. Unchanged hepatomegaly. 4. Unchanged mild left hydronephrosis and left hydroureter. Uncertain etiology. Consider urinary tract infection. 5. Additional details as above. - Blood cultures ordered, so far no growth -Sputum cultures so far no growth -Pleural studies so far no growth -Right pleural biopsy so far no growth - Order CRP 339, Pro-Lucio 4 - Urinalysis, possible evidence of UTI, urine cultures pending - No new rashes - De-escalate to cefdinir History of CAD status post stenting - Continue aspirin, Plavix End-stage renal disease on dialysis - Status post peritoneal dialysis last night - Does have HD catheter in place, status post 1 session of inpatient dialysis - Consult nephrology - Plan on dialysis Medel Type 2 diabetes mellitus - Low-dose sliding scale Full code Lovenox for DVT prophylaxis Plan for today PT OT, bowel regimen added PDMP PDMP Reviewed: Not Reviewed Attestations 2 Medical Necessity Statement*: Patient requires hospitalization for PleurX catheter Diagnoses CHF (congestive heart failure) I50.9 Diastolic heart failure I50.30 PAD (peripheral artery disease) I73.9 Uncontrolled type 2 diabetes mellitus ESRD (end stage renal disease) on dialysis N18.6; Z99.2 Pleural effusion J90
[2025-07-02] VITALS (26 sets, daily range): BP systolic 148–179; BP diastolic 66–80; PULSE 78–87; RESP 14–26; TEMP 36.9–37.2; O2SAT 92–97
[2025-07-02] MEDS: HYDROmorphone 0.5 MG/0.5 ML INJ IVP (00:49)
[2025-07-02] MEDS: polyethylene glycol 3350 Pkt 17 gm PO (08:13)
[2025-07-02] MEDS: NIFEdipine ER (24 hr) 30 mg Tablet 60 MG PO (08:16)
--- NOTE | 2025-07-02 08:43 | PC.HD ---
Dialysis orders written 07/01. Per Dr. Mitchell, hold on dialysis until 07/02 so she is on her clinic TTS schedule. OK to use 07/01 orders on 07/02.
[2025-07-02 13:19] LABS: Amylase, Pleural Fluid 23 U/L
--- NOTE | 2025-07-02 16:09 | PC.NURSE ---
iv DC ALL INSTRUCTIONS educated to patient, DR. Coombs came to bedside educated patient and daughter on plurex care, patient out of facility approximately 1400 transported by daughter
--- NOTE | 2025-07-02 18:18 | PM.PN ---
Subjective Subjective: on 2L NC Medications: Reviewed: Yes Vitals/I&O/Wt Last Vital Signs Temp 98.4 F 07/02/25 12:31 Pulse 86 07/02/25 16:11 Resp 19 H 07/02/25 12:31 BP 149/66 07/02/25 16:11 Pulse Ox 95 07/02/25 16:11 O2 Del Method Nasal Cannula 07/01/25 22:00 O2 Flow Rate 2 07/01/25 22:00 07/02/25 07/02/25 07/02/25 06:59 14:59 22:59 Intake Total 120 / 690 550 / 550 Output Total 200 / 200 3300 / 3300 Balance -80 / 490 -2750 / -2750 Weight last 48 hrs Weight 82.1 kg Weight 83 kg Weight 83 kg Physical Exam Narrative: awake , alert , no distress PEERLA S1S2 RRR per report Lungs clear Abd - soft , non tender Ext , no edema RIJ tunnelled catheter PD catheter in place Data 07/01/25 03:10 07/01/25 03:10 Micro: Microbiology 06/27/25 12:00 Gram Stain - Final Pleural Fluid Anaerobic Culture - Preliminary Body Fluid Culture - Final 06/27/25 12:00 Gram Stain - Final Lung - Biopsy Anaerobic Culture - Preliminary Tissue Culture - Final A&P Assessment and plan 1. ESRD (end stage renal disease) on dialysis: Plan: 1. End-stage renal disease: On PD at home but switched to hemodialysis . switched to HD due to volume overlaod. Patient has right IJ tunneled catheter. - HD done tuesday and tuesday -Next HD today - mental health case manager to set up out pt HD chair 2. Recurrent right pleural effusion, status post pleurodesis and pleural biopsy with PleurX catheter placement 3. History of hypertension, blood pressure elevated on presentation, resume home meds 4. History of diabetes Patient evaluated using audiovisual cart. Time spent 40 minutes PDMP PDMP Reviewed: Not Reviewed Attestations Medical Necessity Statement*: per shona Coding Level of Care Code Acute Code for Chg Fwd Diagnoses ESRD (end stage renal disease) on dialysis N18.6; Z99.2
== END 2025-07-02 14:00 | disposition home or self-care (01) | DRG 166 ==
LOC: ICU 12:01
PROVIDERS: Admitting Provider Internal Medicine; PCP Registered Nurse; Visit Provider Family Medicine
PROC: 0BBN4ZX Excision of Right Pleura, Percutaneous Endoscopic Approach, Diagnostic (ICD-10-PCS; principal; 2025-06-27 09:00)
DX: J90 Pleural effusion, not elsewhere classified (principal); N18.6 End stage renal disease; I13.2 Hypertensive heart and chronic kidney disease with heart failure and with stage 5 chronic kidney disease, or end stage renal disease; I50.32 Chronic diastolic (congestive) heart failure; N39.0 Urinary tract infection, site not specified; E11.22 Type 2 diabetes mellitus with diabetic chronic kidney disease; E11.65 Type 2 diabetes mellitus with hyperglycemia; E11.51 Type 2 diabetes mellitus with diabetic peripheral angiopathy without gangrene; E11.40 Type 2 diabetes mellitus with diabetic neuropathy, unspecified; E11.319 Type 2 diabetes mellitus with unspecified diabetic retinopathy without macular edema; I25.10 Atherosclerotic heart disease of native coronary artery without angina pectoris; Z96.652 Presence of left artificial knee joint; Z99.2 Dependence on renal dialysis; F41.1 Generalized anxiety disorder; G89.29 Other chronic pain; M06.00 Rheumatoid arthritis without rheumatoid factor, unspecified site; F33.41 Major depressive disorder, recurrent, in partial remission; D63.1 Anemia in chronic kidney disease; Z79.82 Long term (current) use of aspirin; Z79.4 Long term (current) use of insulin; Z79.02 Long term (current) use of antithrombotics/antiplatelets; Z95.5 Presence of coronary angioplasty implant and graft
CPT/HCPCS: 36415; 36416; 71045; 71260; 74177; 80053; 80202; 80503; 81001; 82042; 82150; 82465; 82570; 82945; 82962; 83036; 83615; 83735; 83880; 83986; 84100; 84145; 84157; 84311; 84478; 85014; 85025; 86140; 87015; 87040; 87070; 87075; 87086; 87102; 87116; 87176; 87205; 87206; 87637; 87801; 88112; 88305; 89050; 90935; 94664; 96372; 97116; 97161; 97165; 97535; A9281; J0360; J0690; J1171; J1644; J1650; J1815; J2250; J2405; J2543; J2704; J3010; J3373; J7030; J9999; Q3014

== ENCOUNTER 2025-07-11 07:02 | Outpatient (CLI) | payer OTHER, MEDICAID, SELFPAY ==
--- NOTE | 2025-07-11 07:15 | CT_ITS ---
WS: [id number] CT chest wo con [id number] HISTORY: imaging needed prior to Pleurx catheter removal TECHNIQUE: Axial imaging performed through the thorax. Coronal and sagittal reformats are submitted. All CT scans at [facility] use at least one of these dose optimization techniques: automated exposure control; mA and/or kV adjustment per patient size (includes targeted exams where dose is matched to clinical indication); or iterative reconstruction. CONTRAST: None DLP: 528.93 mGy.cm COMPARISON: 06/29/2025, 05/22/2025 Lungs and central airway: Breathing motion artifact. Hazy attenuation throughout both lungs is thought to be related to motion. Small amount of edema would appear similar. Pleura: Small bilateral pleural effusions are identified. LEFT effusion is slightly greater than the RIGHT. There is a Pleurx catheter in the RIGHT pleural effusion with tip directed into the posterior inferior pleural space. There is some increased attenuation within the pleural space which may be from recent pleurodesis. RIGHT pleural effusion has not significantly changed in size. There are a few small foci of air in the RIGHT pleural space which may be related to the catheter manipulation but empyema is not excluded. Heart and pericardium: Heart is markedly enlarged. Dense coronary artery calcifications. Mediastinum and rj: Atherosclerosis aorta. Normal size pulmonary artery. Small mediastinal and hilar lymph nodes. Chest wall and lower neck: Diffuse soft tissue anasarca. Right-sided dialysis catheter. Upper abdomen: Small hiatal hernia. Cholelithiasis. Suprarenal aortic calcifications and mild mesenteric artery calcifications. No adrenal mass. Osseous structures: No destructive process. CT/CT chest wo con [id number] IMPRESSION: 1. Small persistent RIGHT pleural effusion with Pleurx catheter remaining in p osition. RIGHT pleural effusion has not significantly changed in size since 06/17. 2. There are a few foci of increased density within the RIGHT pleural effusion which may be related to pleurodesis. Small amount of acute blood may appear si milar. 3. There are a few foci of air in the RIGHT pleural effusion. This may be due to tube manipulation of the catheter. Empyema cannot be excluded. 4. Small layering LEFT pleural effusion. 5. Marked cardiomegaly. Coronary artery calcification.
== END 2025-07-11 07:03 | disposition home or self-care (01) ==
LOC: RAD 07:03
PROVIDERS: PCP Registered Nurse; Visit Provider Internal Medicine
DX: J90 Pleural effusion, not elsewhere classified (principal)
CPT/HCPCS: 71250

== ENCOUNTER 2025-07-15 16:15 | Inpatient (IN) | payer OTHER, MEDICAID, SELFPAY ==
[2025-07-15] VITALS (19 sets, daily range): BP systolic 210–234; BP diastolic 102–134; PULSE 70–88; RESP 20–40; TEMP 36.7–36.8; O2SAT 90–97
--- NOTE | 2025-07-15 16:19 | XR_ITS ---
WS: [id number] XR chest 1V portable [id number] REASON FOR EXAM: Shortness of breath FINDINGS: Normal right IJ dialysis catheter and right Pleurx chest tube remain in position unchanged compared to 07/01/2025. Mild cardiomegaly with moderate central pulmonary venous congestion. Compared to the previous examination there are increased diffuse interstitial and groundglass opacities throughout both lower lung [place]. There are bilateral pleural effusions which were also present on the previous examination, but possibly possibly increased in volume. XR/XR chest 1V portable [id number] IMPRESSION: Interval change as above. This degree of lung abnormality was not present on e CT scan of the chest 07/11/2025. Presumably this represents pulmonary edema.
--- OUTSIDE RECORDS SUMMARY | 2025-07-15 16:19 | XMS_ITS ---
Author Organization [facility] Address [address] [place] [address] Care Team Providers Care Senior Agricultural Assistant Name Role Phone Elke Patel RN Unavailable [phone] Graciela Gonzales MD Unavailable Juani Traylor MD Primary Care Pro vider Transplant Episode Kidney Candidate [facility] ([place], [place]) - [facility] Evaluation began on 08/07/2024 Marked as Active on 08/07/2024 Reason: Evaluation - Standard Kidney CoordinatorElke Patel RN Fax: N/A Email: N/A Scores Score Value Updated Exceptions/Reas ons CPRA Not available EPTS (Calc) 24 07/15/2025 Care Team Name Role Phone Fax Email Elke Patel RN Kidney Coordinator [phone] N/A N/A Mary Markham Primary Package Sorter N/A N/A N/A Demetrio Duco Polisher N/A N/A N/A Graciela Gonzales MD Referring Physician [phone] N/A Events Pre-Transplant Referred: 07/25/2024 Evaluation began: 08/07/2024 Dialysis History Dialysis History Start End Type Comments Center 05/28/2024 Peritoneal started 09/2024 [facility] Dialysis Center Information Center Phone Fax Address [facility] [phone] [facility] [address]
--- OUTSIDE RECORDS SUMMARY | 2025-07-15 16:19 | XMS_ITS | Encounter Summary ---
Author Organization [facility] Address [address] [place] [address] Phone Care Team Providers Care Human Resources File Clerk Name Role Phone Joellen Hill NP Primary Care Provider + [phone] Encounter Details Date Type Department Care Team (Late st Contact Info) Description 07/09/2025 [facility] [address] [place] [address] Graciela Gonzales MD [address] [place] [address] Social History Tobacco Use Types Packs/Day Years Used Date Smoking Tobacco: Never Smokeless Tobacco: Never Alcohol Use Standard Drinks/Week Comments Never 0 (1 standard drink = 0.6 oz pur e alcohol) Comments Unknown Sex and Gender Information Value Date Recorded Sex Assigned at Not on file Legal Sex Female 9:22 AM EST Gender Identity Not on file Sexual Orientation Not on file documented as of this encounter Progress Notes * Graciela Gonzales MD - 07/09/2025 12:00 AM CDT Patient: LIZY EVANS, 1970, 54y, F Dialysis Location: [facility] Attending Rag Cutting Machine Operator: Graciela Gonzales Service Date: 07/09/2025 Service Provider: Graciela Gonzales MD I met face to face with the patient today. INITIAL PATIENT CONTACT Contact with the patient or caregiver was made or attempted within 2 business days of discharge - details in the medical record HOSPITALIZATION SUMMARY Setting patient transitioned to: Home. Admission Date: 06/27/2025 Discharge Date: 07/01/2025 Discharge diagnosis: J90 Pleural effusion, not elsewhere classified Discharge information reviewed: No outstanding diagnostic tests and treatments DIAGNOSES Conditions addressed during visit: J90 Pleural effusion, not elsewhere classified Comments: S/p pleurodesis Now on HD for 5 treatments. To transition back to PD afterwards. Follow up with pulmonolgy and nephrology. MEDICATIONS Discharge med list reviewed and reconciled - no changes. PHYSICAL EXAM Exam Performed. Vital Signs Reviewed. CV - Blood pressure noted. DIALYSIS PRESCRIPTION Dry weight during admission reviewed - no change to EDW. CARE COORDINATION Post discharge follow-up appointments reviewed with the patient. EDUCATION Education relevant to the discharge diagnosis provided to the patient or caregiver IMPRESSION & PLAN Comments: As above. Resume to PD after HD tx for a 1 1/2 week. Follow up with nephrology and pulmonology. Signed By: Graciela Gonzales MD on 07/09/2025 11:30:13 AM documented in this encounter Plan of Treatment Not on file documented as of this encounter Visit Diagnoses Not on filedocumented in this encounter Care Teams Human Resources File Clerk Relationship Specialty Start Date End Date Joellen Hill NP [address] [place] [address] PCP - General Family Medicine 09/15/23 documented as of this encounter
--- OUTSIDE RECORDS SUMMARY | 2025-07-15 16:20 | XMS_ITS | Clinical Summary ---
Author Organization [facility] Address [address] Barnes: Epic Prelude ADT EDUARDO PONCE [address] Care Team Providers Care Scleroscope Tester Name Role Phone Joellen Hill BILLIARD TABLE ASSEMBLER Primary Care Provider Allergies Active Allergy Reactions Criticality Noted Date Comments Bee Venom Protein (Honey Bee) Nausea and Vomiting Low 01/15/2024 Cannabidiol (Cbd) Nausea and Vomiting Low 4 Codeine Nausea and Vomiting Low 03/02/2013 Latex Rash Low 03/02/2013 Morphine Nausea and Vomiting Low 01/29/2012 Propoxyphene N-Acetaminophen Other (See Comments) 01/29/2012 Syncope and memory loss Medications atorvastatin (LIPITOR) 40 mg tablet Take 40 mg by mouth daily. Active isosorbide mononitrate (IMDUR) 30 mg Extended Release 24 hour tablet Take 30 mg by mouth daily. 4 Active omeprazole (PriLOSEC) 20 mg Capsule, Delayed Release(E.C.) Take 20 mg by mouth daily. Active carvediloL (COREG) 12.5 mg tablet Take 25 mg by mouth 2 times daily with meals. Active cetirizine (ZyrTEC) 10 mg tablet Take 10 mg by mouth daily. Active sevelamer carbonate (RENVELA) 800 mg Tablet Take 800 mg by mouth 3 times daily with meals. Active torsemide (DEMADEX) 100 mg tablet Take 100 mg by mouth daily. Active vit B iwuzazp-P-izrmc ac-zinc (RenaPlex) 800 mcg- 12.5 mg Tablet Take by mouth. Activ e calcitRIOL (ROCALTROL) 0.25 mcg capsule Take 0.25 mcg by mouth daily. Active NIFEdipine (ADALAT CC) 60 mg Extended Release tablet Take 60 mg by mouth daily. Active famotidine-calc ium CARBONATE-magne sium HYDROXIDE (PEPCID COMPLETE) 10-800-165 mg Tablet, Chewable Take 1 Tablet by mouth. Active docusate sodium (COLACE) 50 mg capsule Take 50 mg by mouth 2 times daily. Active clopidogreL (PLAVIX) 75 mg Tablet Take 75 mg by mouth daily. Active aspirin (ECOTRIN EC) 81 mg Tablet, Delayed Release (E.C.) Take 81 mg by mouth daily. Active sodium bicarbonate 650 mg tablet Take 650 mg by mouth 2 times daily. Active lisinopriL (PRINIVIL) 40 mg tablet Take 40 mg by mouth daily. Active insulin lispro (HumaLOG,ADMELO G) 100 unit/mL vial Inject 2 Units by subcutaneous injection 3 times daily with meals. Active Active Problems Problem Noted Date Diagnosed Date Stroke-like symptoms 04/29/2025 Other chest pain 04/29/2025 ESRD on dialysis 04/29/2025 Elevated troponin 04/29/2025 Pleural effusion, bilateral 04/29/2025 Melena 03/25/2024 CHELLY (acute kidney injury) 03/24/2024 Hypertensive emergency 03/24/2024 Type 2 diabetes mellitus wit h hyperglycemia, with long-term current use of insulin 03/24/2024 Essential hypertension 03/24/2024 Hyperlipidemia 03/24/2024 Mood disorder 03/24/2024 Encounters Date Type Department Care Team Description 06/12/2025 External Device Data ST[facility] ABSTRACTION Provider, Abstract 05/28/2025 External Device Data [facility] ABSTRACTION Provider, Abstract 05/01/2025 External Device Data [facility] ABSTRACTION Provider, Abstract 05/01/2025 External Device Data [facility] ABSTRACTION Provider, Abstract 05/01/2025 External Device Data [facility] ABSTRACTION Provider, Abstract 05/01/2025 External Device Data [facility] ABSTRACTION Provider, Abstract 04/29/2025 3:34 PM CDT - 05/04/2025 11:57 AM CDT Hospital Encounter [address] [facility] [address] [place] [id number] Karol Gastelum DO Sigdel, Supriya, MD Stroke-like symptoms Discharge Disposition: Home or Self Care 04/29/2025 9:33 AM CDT - 04/29/2025 1:54 PM CDT Emergency [facility] Emergency Medicine [address] [place] [address] Gregg Sandoval MD Stroke-like symptoms (Primary Dx); Other chest pain; ESRD on dialysis (CMS/HCC); Elevated troponin; Pleural effusion, bilateral Discharge Disposition: Acute Care Hospital 04/29/2025 - 04/29/2025 11:59 PM CDT Hospital Encounter [facility] Emergency Medical Services [address] [phone] Ambulance, [facility] Discharge Disposition: [facility] 04/29/2025 Travel from Last 3 Months Immunizations Immunization Administration Dates Next Due INFLUENZA VACCINE QUADRIVALENT RECOMB 18 YR UP P F IM 12/05/2019 Social History Tobacco Use Types Packs/Day Years Used Date Smoking Tobacco: Never Smokeless Tobacco: Never Alcohol Use Standard Drinks/Week Comments No 0 (1 standard drink = 0.6 oz pur e alcohol) Feeling Safe Answer Date Recorded Are you in a relationship wi th someone who hurts you emotionally and/or physically? 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 Gender Identity Not on file Sexual Orientation Not on file Last Filed Vital Signs Vital Sign Reading Time Taken Comments Blood Pressure 121/63 05/04/2025 7:58 AM CDT Pulse 69 05/04/2025 7:58 AM CDT Temperature 35.8 C (96.4 F) 05/04/2025 7:58 AM CDT Respiratory Rate 12 05/04/2025 7:58 AM CDT Oxygen Saturation 98% 05/04/2025 7:58 AM CDT Inhaled Oxygen Concentration - - Weight 71.6 kg (157 lb 13.6 oz) 05/04/2025 4:49 AM CDT Height 163.8 cm (5' 4.5 ) 04/29/2025 3:43 PM CDT Body Mass Index 26.68 04/29/2025 3:43 PM CDT Plan of Treatment Health Maintenance Due Date Last Done Comments DIABETES ANNUAL FOOT EXAM 1988 DIABETES ANNUAL RETINAL EXAM 1988 LDL CHOLESTEROL ANNUAL 1988 DTAP/TDAP/TD VACCINES (1 - Tdap) 1989 HEPATITIS B VACCINES (1 of 3 - 19+ 3-dose series) 1989 04/18/2024 HPV/Cotest (21-29) 1991 CERVICAL CANCER SCREENING 2000 HPV/Cotest (30-65) 2000 PAP SMEAR 2000 BREAST CANCER SCREENING 2010 COLORECTAL SCREENING 2015 Colorectal Cancer Screening 2015 FIT-DNA Q 3 years 2015 FIT/FOBT Q 1 year 2015 Flex Sig/CT Colonography Q 5 years 2015 ZOSTER VACCINE (1 of 2) 2020 DIABETES MICROALBUMIN ANNUAL SCREEN 03/24/202503/24 INFLUENZA VACCINE (#1) 2025 08/01/2024, 2019 DIABETES HBA1C Q 6 MONTHS 10/31/20252024, 04/29/2025, 11/15/2024 Medical Devices Implanted Type Area Uniform Maker Device Identifier Shelf Expiration Date Model / Serial / Lot Cath Dialysis Glidepath 14.5fr 24cm [facility] [id number] - [id number] Implanted:Qty : 1 on 03/28/2024 by Demetrio Almaraz MD at [facility] Catheter Right: Chest BARD MARCK VASC 11/16/2025 [id number] / / [id number] Cath Pd [employer]queria Curl 2cuf [id number] - [id number] Implanted:Qty : 1 on 04/26/2024 by Jones Barnett DO at [facility] Catheter N/A: Abdomen [employer] - COVIDIEN [id number] 10/04/2028 [id number] / / [id number] Cath Pd Taqueria Curl 2cuf [id number] - [id number] Implanted:Qty : 1 on 08/30/2024 by Jones Barnett DO at [facility] Catheter N/A: Abdomen [employer] - COVIDIEN [id number] 02/18/2029 [id number] / / [id number] Procedures Procedure Name Priority Date/Time Associated Diagnosis Comments POC GLUCOSE Routine 05/04/2025 8:00 AM CDT BASIC METABOLIC PANEL Routine 05/04/2025 4:23 AM CDT CBC WITH DIFFERENTIAL Routine 05/04/2025 4:23 AM CDT POC GLUCOSE Routine 05/03/2025 8:40 PM CDT POC GLUCOSE Routine 05/03/2025 5:18 PM CDT POC GLUCOSE Routine 05/03/2025 12:03 PM CDT POC GLUCOSE Routine 05/03/2025 8:43 AM CDT BASIC METABOLIC PANEL Routine 05/03/2025 3:23 AM CDT CBC WITH DIFFERENTIAL Routine 05/03/2025 3:23 AM CDT POC GLUCOSE Routine 05/03/2025 3:03 AM CDT POC GLUCOSE Routine 05/02/2025 9:57 PM CDT POC GLUCOSE Routine 05/02/2025 5:[address] ABDOMEN PELVIS WO CONTRAST Pending Discharge 05/02/2025 1:34 PM CDT POC GLUCOSE Routine 05/02/2025 12:13 PM CDT POC GLUCOSE Routine 05/02/2025 9:50 AM CDT BASIC METABOLIC PANEL Routine 05/02/2025 5:07 AM CDT CBC WITH DIFFERENTIAL Routine 05/02/2025 5:07 AM CDT POC GLUCOSE Routine 05/01/2025 9:47 PM CDT POC GLUCOSE Routine 05/01/2025 5:59 PM CDT POC GLUCOSE Routine 05/01/2025 12:06 PM CDT POC GLUCOSE Routine 05/01/2025 7:23 AM CDT PHOSPHORUS Routine 05/01/2025 4:19 AM CDT BASIC METABOLIC PANEL Routine 05/01/2025 4:19 AM CDT CBC WITH DIFFERENTIAL Routine 05/01/2025 4:19 AM CDT POC GLUCOSE Routine 04/30/2025 9:51 PM CDT POC GLUCOSE Routine 04/30/2025 5:51 PM CDT MRI BRAIN WO CONTRAST Stat 04/30/2025 3:14 PM CDT ECHO COMPLETE Pending Discharge 04/30/2025 1:30 PM CDT POC GLUCOSE Routine 04/30/2025 11:57 AM CDT XR CHEST PA OR AP 1 VW Stat 04/30/2025 11:11 AM CDT US ASPIRATION PLEURA RIGHT Stat 04/30/2025 10:23 AM CDT CYTOLOGY, NON GYNE Stat 04/30/2025 9: 57 AM CDT ADENOSINE DEAMINASE, PLEURAL FLUID Stat 04/30/2025 9:57 AM CDT CELL COUNT WITH DIFFERENTIAL, BODY FLUID Stat 04/30/2025 9:57 AM CDT PH, BODY FLUID Stat 04/30/2025 9:57 AM CDT LACTATE DEHYDROGENASE, BODY FLUID Stat 04/30/2025 9:57 AM CDT GLUCOSE, BODY FLUID Stat 04/30/2025 9 :57 AM CDT PROTEIN, BODY FLUID Stat 04/30/2025 9 :57 AM CDT ANAEROBIC/AEROBIC CULTURE W GRAM STAIN Stat 04/30/2025 9:57 AM CDT POC GLUCOSE Routine 04/30/2025 7:54 AM CDT POC GLUCOSE Routine 04/30/2025 5:57 AM CDT HEMOGLOBIN A1C Routine 04/30/2025 4:31 AM CDT LACTATE DEHYDROGENASE Routine 04/30/2025 4:31 AM CDT BASIC METABOLIC PANEL Routine 04/30/2025 4:31 AM CDT CBC WITH DIFFERENTIAL Routine 04/30/2025 4:31 AM CDT URINALYSIS W/REFLEX MICROSCOPIC Stat 04/30/2025 2:05 AM CDT URINE CULTURE Stat 04/30/2025 2:05 AM CDT POC GLUCOSE Stat 04/29/2025 9:40 PM CDT TSH REFLEXIVE Stat 04/29/2025 9:07 PM CDT BLOOD CULTURE Stat 04/29/2025 9:05 PM CDT BLOOD CULTURE Stat 04/29/2025 9:05 PM CDT BLOOD CULTURE Stat 04/29/2025 7:49 PM CDT BLOOD CULTURE Stat 04/29/2025 7:49 PM CDT XR CHEST PA OR AP 1 VW Stat 04/29/2025 6:30 PM CDT PT EVAL AND TREAT Stat 04/29/2025 6:2 7 PM CDT OT EVAL AND TREAT Stat 04/29/2025 6:2 7 PM CDT FERRITIN Stat 04/29/2025 4:49 PM CDT IRON, TIBC, AND PERCENT SATURATION Stat 04/29/2025 4:49 PM CDT TROPONIN 6 HR, 5TH GEN Timed Study 04/29/2025 4:49 PM CDT EKG 12-LEAD Stat 04/29/2025 3:54 PM CDT TROPONIN 2 HR, 5TH GEN Timed Study 04/29/2025 12:[address] HEAD W + ST NECK W Stat 04/29/2025 11:59 AM CDT CTA CHEST W AND/OR WO CONTRAST Stat 04/29/2025 11:59 AM CDT EKG 12-LEAD Stat 04/29/2025 10:57 AM CDT POC GLUCOSE Stat 04/29/2025 10:[address] HEAD WO CONTRAST Stat 04/29/2025 1 0:18 AM CDT HEMOGLOBIN A1C Stat 04/29/2025 10:00 AM CDT MAGNESIUM LEVEL Stat 04/29/2025 10:00 AM CDT BRAIN NATRIURETIC PEPTIDE, BNP OR PROBNP Stat 04/29/2025 10:00 AM CDT PTT Stat 04/29/2025 10:00 AM CDT TROPONIN BASELINE, 5TH GEN Stat 04/29/2025 10:00 AM CDT COMPREHENSIVE METABOLIC PANEL Stat 04/29/2025 10:00 AM CDT PROTIME-INR Stat 04/29/2025 10:00 AM CDT CBC WITH DIFFERENTIAL Stat 04/29/2025 10:00 AM CDT MICROALBUMIN/CREATIN INE RATIO, RANDOM UR Routine 03/24/2024 11:27 PM CDT from Last 3 Months or Most Recently Relevant to Health Maintenance Results * (ABNORMAL) POC GLUCOSE (05/04/2025 8:00 AM CDT) Only the most recent of21 resultswithin the time period is included. [facility] GLUCOSE POC 169(H) 74 - 99 mg/dL 05/04/2025 8:[address] [facility] SPECIMEN SOURCE, GLUCOSE POC Capillary 05/04/2025 8:[address] [facility] Blood, whole 05/04/2025 8:00 AM CDT 05/04/2025 8:21 AM CDT us Deja Marie MD POINT OF CARE TESTING Final Re sult [facility] CLIA # [id number] [facility] [address] [place] [address] * (ABNORMAL) CBC WITH DIFFERENTIAL (05/04/2025 4:23 AM CDT) Only the most recent of6 resultswithin the time period is included. [facility] WBC 11.5(H) 4.8 - 10.8 K/uL 05/04/2025 4:43 AM [facility] RBC 2.84(L) 4.20 - 5.40 M/uL 05/04/2025 4:43 AM [facility] HEMOGLOBIN 8.1(L) 12.0 - 16.0 g/dL 05/04/2025 4:43 AM [facility] HEMATOCRIT 25.6(L) 36.0 - 46.0 % 05/04/2025 4:43 AM [facility] MCV 90.1 84.0 - 103.0 fL 05/04/2025 4:43 AM [facility] MCH 28.5 27.0 - 34.0 pg 05/04/2025 4:43 AM [facility] MCHC 31.6 30.0 - 35.0 g/dL 05/04/2025 4:43 AM [facility] PLATELETS 347 140 - 440 K/uL 05/04/2025 4:43 AM [facility] MPV 9.3 8.9 - 12.8 fL 05/04/2025 4:43 AM [facility] RDW 14.7(H) 11.0 - 14.5 % 05/04/2025 4:43 AM [facility] RDW-STDEV 46.5 37.0 - 54.0 fL 05/04/2025 4:43 AM [facility] NEUTROPHILS 74 42 - 75 % 05/04/2025 4:43 AM [facility] LYMPHOCYTES 18(L) 24 - 44 % 05/04/2025 4:43 AM [facility] MONOCYTES 5 2 - 10 % 05/04/2025 4:43 AM [facility] EOSINOPHILS 2 0 - 7 % 05/04/2025 4:43 AM [facility] BASOPHILS 0 0 - 1 % 05/04/2025 4:43 AM [facility] IMMATURE GRANULOCYTES 1 0 - 2 % 05/04/2025 4:[address] [facility] NEUTROPHIL ABSOLUTE 8.50(H) 2.00 - 8.00 K/uL 05/04/2025 4:[address] [facility] LYMPHOCYTE ABSOLUTE 2.03 1.20 - 4.00 K/uL 05/04/2025 4:[address] [facility] MONOCYTE ABSOLUTE 0.59 0.10 - 0.60 K/uL 05/04/2025 4:[address] [facility] EOSINOPHIL ABSOLUTE 0.21 0.00 - 0.70 K/uL 05/04/2025 4:[address] [facility] BASOPHILS ABSOLUTE 0.05 0.00 - 0.20 K/uL 05/04/2025 4:[address] [facility] IMMATURE GRANULOCYTES ABSOLUTE 0.13(H) 0.00 - 0.10 K/uL 05/04/2025 4:[address] [facility] SMEAR REVIEWED: NA - Not Applicable 05/04/2025 4:[address] [facility] Blood Venipuncture / Unknown 05/04/2025 4:23 AM CDT 05/04/2025 4:36 AM CDT us Deja Marie MD HEMATOLOGY ORDERABLES [id number] [address] [place] [id number] * (ABNORMAL) BASIC METABOLIC PANEL (05/04/2025 4:23 AM CDT) Only the most recent of5 resultswithin the time period is included. SODIUM 135(L) 136 - 145 mmol/L 05/04/2025 5:[address] [facility] POTASSIUM 3.7 3.5 - 5.1 mmol/L 05/04/2025 5:[address] [facility] CHLORIDE 94(L) 98 - 107 mmol/L 05/04/2025 5:[address] [facility] CO2 24 22 - 29 mmol/L 05/04/2025 5:[address] [facility] CALCIUM 8.9 8.6 - 10.0 mg/dL 05/04/2025 5:[address] [facility] BUN 48(H) 6 - 20 mg/dL 05/04/2025 5:[address] [facility] CREATININE 7.53(H) 0.51 - 0.95 mg/dL 05/04/2025 5:[address] [facility] GLUCOSE 252(H) 74 - 99 mg/dL 05/04/2025 5:[address] [facility] GFR 6(L) >=60 mL/min/1. 73 sq meter 05/04/2025 5:[address] [facility] Comment:eGFR calculated with 2020 CKD-EPI equation. Vegetarian diet, extremely high or low muscle mass, and may affect results. Cystatin C with Glomerular Filtration Rate is a suitable alternative for these patients. ANION GAP 17 9 - 20 mmol/L 05/04/2025 5:[address] [facility] Blood Venipuncture / Unknown 05/04/2025 4:23 AM CDT 05/04/2025 4:35 AM CDT us Deja Marie MD CHEMISTRY ORDERABLES Final Res ult [facility] CLIA # [id number] [address] [place] [id number] * CT ABDOMEN PELVIS WO CONTRAST (05/02/2025 1:34 PM CDT) Anatomical Region Laterality Modality Abdomen Computed Tomogra phy 05/02/2025 9:24 AM CDT Impressions 05/02/2025 1:57 PM CDT IMPRESSION: 1. Moderate to large volume of high density fluid in the peritoneal space likely reflecting a combination of contrast and dialysate; this remains confined to the abdomen and pelvis with no appreciable extension into the pleural effusions or into the overlying abdominal wall surrounding the dialysis catheter. No findings to suggest a significant peritoneal to pleural fistula. 2. Small volume pneumoperitoneum anteriorly in the abdomen, most in keeping with manipulation of the peritoneal catheter; correlation with clinical symptoms is recommended. 3. Partially visualized moderate volume low density pleural effusions. 4. Abnormal thickening of the left ureter with no significant hydronephrosis; this is of unclear etiology though could be secondary to an ascending urinary tract infection. 5. Otherwise as above. Narrative 05/02/2025 1:57 PM CDT EXAM: CT ABDOMEN PELVIS WO CONTRAST DATE/TIME OF EXAM: 05/02/2025 1:34 PM REASON FOR EXAM: Kidney failure, chronic DIAGNOSIS: Right sided weakness COMPARISON: None. TECHNIQUE: This examination was performed using automated exposure control, adjustment of mA or kV according to patient size, and/or use of iterative reconstruction technique. Axial images of the abdomen and pelvis obtained without contrast, multiplanar reformations evaluated. LIMITATIONS: Lack of intravenous contrast decreases sensitivity for the detection of solid organ lesions and inflammatory disease. FINDINGS: - Lower chest: Partially visualized moderate bilateral pleural effusions, right greater than left. No contrast or high density fluid is noted within the pleural fluid. Notably the pleural fluid measures relatively similar in density on the initial and delayed imaging (26 Hounsfield units and 32 Hounsfield units respectively). Small hiatal hernia. - Liver: Normal in size and contour. No acute findings. Apparent increased attenuation of the liver is nonspecific and could be secondary to iron deposition or with certain medications such as amiodarone. - Gallbladder/Biliary: Cholelithiasis. Bile ducts appear nondilated. - Pancreas: Within normal limits. - Adrenals: Within normal limits. - Spleen: Within normal limits. - Kidneys, ureters, urinary bladder: No radiodense renal or ureteral calculi. Abnormal enlargement of the left ureter which may be secondary to diffuse urothelial thickening; there is a trace amount of contrast material within bilateral collecting systems. Overall no significant hydronephrosis. Urinary bladder is normal. - Peritoneum and extraperitoneum: There is a peritoneal dialysis catheter coiling in the lower right pelvis. Moderate to large volume high density free fluid/ascites throughout the abdomen and pelvis, likely in part secondary to contrast material injected through the catheter. Small volume of pneumoperitoneum anteriorly in the pelvis also probably relates to catheter manipulation. No extravasation of the high density fluid into the abdominal wall surrounding the catheter. Delayed imaging was also acquired at approximately 1:00 PM; no definitive extravasation of the contrast on delayed imaging. - Gastrointestinal tract: No evidence of a small bowel obstruction or acute abnormality. - Reproductive System: Status post a hysterectomy. - Vascular: No abdominal aortic aneurysm. Moderate to severe burden of calcific atherosclerotic plaque. - Bones/Soft tissues: No suspicious osseous lesions. Additional comments: None. Procedure Note Kristian Houston MD - 05/02/2025 EXAM: CT ABDOMEN PELVIS WO CONTRAST DATE/TIME OF EXAM: 05/02/2025 1:34 PM REASON FOR EXAM: Kidney failure, chronic DIAGNOSIS: Right sided weakness COMPARISON: None. TECHNIQUE: This examination was performed using automated exposure control, adjustment of mA or kV according to patient size, and/or use of iterative reconstruction technique. Axial images of the abdomen and pelvis obtained without contrast, multiplanar reformations evaluated. LIMITATIONS: Lack of intravenous contrast decreases sensitivity for the detection of solid organ lesions and inflammatory disease. FINDINGS: - Lower chest: Partially visualized moderate bilateral pleural effusions, right greater than left. No contrast or high density fluid is noted within the pleural fluid. Notably the pleural fluid measures relatively similar in density on the initial and delayed imaging (26 Hounsfield units and 32 Hounsfield units respectively). Small hiatal hernia. - Liver: Normal in size and contour. No acute findings. Apparent increased attenuation of the liver is nonspecific and could be secondary to iron deposition or with certain medications such as amiodarone. - Gallbladder/Biliary: Cholelithiasis. Bile ducts appear nondilated. - Pancreas: Within normal limits. - Adrenals: Within normal limits. - Spleen: Within normal limits. - Kidneys, ureters, urinary bladder: No radiodense renal or ureteral calculi. Abnormal enlargement of the left ureter which may be secondary to diffuse urothelial thickening; there is a trace amount of contrast material within bilateral collecting systems. Overall no significant hydronephrosis. Urinary bladder is normal. - Peritoneum and extraperitoneum: There is a peritoneal dialysis catheter coiling in the lower right pelvis. Moderate to large volume high density free fluid/ascites throughout the abdomen and pelvis, likely in part secondary to contrast material injected through the catheter. Small volume of pneumoperitoneum anteriorly in the pelvis also probably relates to catheter manipulation. No extravasation of the high density fluid into the abdominal wall surrounding the catheter. Delayed imaging was also acquired at approximately 1:00 PM; no definitive extravasation of the contrast on delayed imaging. - Gastrointestinal tract: No evidence of a small bowel obstruction or acute abnormality. - Reproductive System: Status post a hysterectomy. - Vascular: No abdominal aortic aneurysm. Moderate to severe burden of calcific atherosclerotic plaque. - Bones/Soft tissues: No suspicious osseous lesions. Additional comments: None. IMPRESSION: 1. Moderate to large volume of high density fluid in the peritoneal space likely reflecting a combination of contrast and dialysate; this remains confined to the abdomen and pelvis with no appreciable extension into the pleural effusions or into the overlying abdominal wall surrounding the dialysis catheter. No findings to suggest a significant peritoneal to pleural fistula. 2. Small volume pneumoperitoneum anteriorly in the abdomen, most in keeping with manipulation of the peritoneal catheter; correlation with clinical symptoms is recommended. 3. Partially visualized moderate volume low density pleural effusions. 4. Abnormal thickening of the left ureter with no significant hydronephrosis; this is of unclear etiology though could be secondary to an ascending urinary tract infection. 5. Otherwise as above. Graciela Gonzales MD CT ORDERABLES Final Result * (ABNORMAL) PHOSPHORUS (05/01/2025 4:19 AM CDT) [facility] PHOSPHORUS 6.8(H) 2.5 - 4.5 mg/dL 05/01/2025 9:27 AM CDT [facility] [place] [facility] Blood Venipuncture / Unknown 05/01/2025 4:19 AM CDT 05/01/2025 5:58 AM CDT Graciela Gonzales MD CHEMISTRY ORDERABLES Final Result [facility] [place] [facility] CLIA # [id number] [facility] [address] * MRI BRAIN WO CONTRAST (04/30/2025 3:14 PM CDT) Anatomical Region Laterality Modality Head Magnetic Resonan ce 04/30/2025 3:14 PM CDT Impressions 04/30/2025 3:21 PM CDT IMPRESSION: Please see below. Exam: MRI BRAIN WO CONTRAST Date/Time of Exam: 04/30/2025 3:14 PM Reason For Exam: Transient ischemic attack (TIA). Diagnosis: Right sided weakness. Technique: Multiplanar, multisequence MR images were obtained through the brain without contrast. Comparison: Recent CT imaging. FINDINGS: Examination is somewhat motion limited. Midline structures are within normal limits. Ventricles are nondilated. Mild cortical volume loss. Low-grade white matter and pontine leukoaraiosis underlying. Tiny chronic right thalamic lacunar infarcts. No diffusionopathy, hemorrhage or mass lesion. Major intracranial arterial flow voids are preserved. Orbits, paranasal sinuses and temporal bones grossly unremarkable. IMPRESSION: No acute pathology. No acute ischemic insult. Mild deep brain chronic ischemic changes underlying. Narrative Procedure Note Ronni Palafox, DO - 04/30/2025 IMPRESSION: Please see below. Exam: MRI BRAIN WO CONTRAST Date/Time of Exam: 04/30/2025 3:14 PM Reason For Exam: Transient ischemic attack (TIA). Diagnosis: Right sided weakness. Technique: Multiplanar, multisequence MR images were obtained through the brain without contrast. Comparison: Recent CT imaging. FINDINGS: Examination is somewhat motion limited. Midline structures are within normal limits. Ventricles are nondilated. Mild cortical volume loss. Low-grade white matter and pontine leukoaraiosis underlying. Tiny chronic right thalamic lacunar infarcts. No diffusionopathy, hemorrhage or mass lesion. Major intracranial arterial flow voids are preserved. Orbits, paranasal sinuses and temporal bones grossly unremarkable. IMPRESSION: No acute pathology. No acute ischemic insult. Mild deep brain chronic ischemic changes underlying. Deja Marie MD MR ORDERABLES Final Result * ECHO COMPLETE - CONTRAST AND STRAIN IF INDICATED (04/30/2025 1:30 PM CDT) EJECTION FRACTION 58 INTERFACE SYSTEM 04/30/2025 12:5 0 PM CDT Narrative INTERFACE SYSTEM - 04/30/2025 5:08 PM CDT [facility] Echocardiography Laboratory [address] [place] [id number] Transthoracic Echocardiography Patient: Lizy Evans Study ID: ECHO COMPLETE - L Gender: F : 1970 Age: 54 Room: [facility] Study 04/30/2025 Pt Inpatient Date: Status: Study 12:50:28 PM CSN #: [id number] Time: Ordering:Deja Marie Metal Roofer: Fely Alvarado Indications and History: Cardiac Etiology: General; Elevated troponin. Summary and Conclusion: - Left ventricle: The cavity size is normal. There is mild focal basal hypertrophy of the septum. Global systolic function is normal. For Epic reporting: the left ventricular ejection fraction is 58%. No diagnostic regional wall motion abnormality identified. Diastolic function is indeterminate. The longitudinal strain is -18.5% (Normal range is -18 to -25). - Right ventricle: The cavity size is normal. Systolic function is low normal. Systolic pressure is within the normal range. - Left atrium: The atrium is mildly dilated. - Right atrium: Pacer wire or catheter noted in right atrium. - Aortic valve: The annulus is mildly calcified. The valve is trileaflet. The leaflets are mildly thickened. Velocity is minimally increased. There is trivial stenosis. There is no significant regurgitation. The mean systolic gradient is 7mm Hg. - Mitral valve: The annulus is mildly calcified. The leaflets are thickened. There is mild regurgitation. - Tricuspid valve: There is mild regurgitation. Procedure information: Comparison is made to the study of 11/15/2024. Study status: Routine. Procedure: A transthoracic echocardiogram was performed. Image quality was adequate. Scanning was performed from the parasternal, apical, subcostal, and suprasternal notch acoustic windows. Study components: M-mode, 2D, complete spectral Doppler, and color Doppler. Height: 163.8cm. Height: 64.5in. Weight: 83kg. Weight: 183lb. BMI: 30.9kg/m^2. BSA: 1.97m^2. Blood pressure: 136/68 Study date: 04/30/2025. Study time: 12:50 PM. Location: Bedside. Cardiac Anatomy: LEFT VENTRICLE: The cavity size is normal. There is mild focal basal hypertrophy of the septum. Global systolic function is normal. For Epic reporting: the left ventricular ejection fraction is 58%. No diagnostic regional wall motion abnormality identified. The longitudinal strain is -18.5% (Normal range is -18 to -25). Diastolic function is indeterminate. RIGHT VENTRICLE: The cavity size is normal. Systolic function is low normal. Systolic pressure is within the normal range. LEFT ATRIUM: The atrium is mildly dilated. RIGHT ATRIUM: The atrium is normal in size. Pacer wire or catheter noted in right atrium. ATRIAL SEPTUM: No obvious PFO or ASD identified by 2D imaging and color Doppler. AORTIC VALVE: The annulus is mildly calcified. The valve is trileaflet. The leaflets are mildly thickened. Mobility is not restricted. Velocity is minimally increased. There is trivial stenosis. There is no significant regurgitation. MITRAL VALVE: The annulus is mildly calcified. The leaflets are thickened. Mobility is not restricted. No evidence for prolapse. There is no evidence for stenosis. There is mild regurgitation. TRICUSPID VALVE: Structurally normal valve. Mobility is unrestricted. There is no evidence for stenosis. There is mild regurgitation. PULMONIC VALVE: Not well visualized. The valve appears to be grossly normal. There is no evidence for stenosis. There is no significant regurgitation. PERICARDIUM: There is no pericardial effusion. AORTA: Aortic root: The root is not dilated. Aortic arch: The vessel is not dilated. INTRACARDIAC MASS THROMBUS: No apparent intracavitary masses or thrombi detected. Measurements Left ventricle Value Right ventricle Value GLS, 2D -18.5 % DARRION, LAX 2.3 cm DARRION, LAX 5.0 cm DARRION 2.3 cm ESD, LAX 3.0 cm DARRION/bsa, LAX 2.5 cm/m^2 Left atrium Value ESD/bsa, LAX 1.5 cm/m^2 AP dim, ES 4.1 cm FS, LAX 40 % AP dim index, ES 2.1 cm/m^2 ESD major ax, A4C 7.4 cm SI dim, A4C 5.6 cm ESD/bsa major ax, A4C 3.8 cm/m^2 Area ES, A4C 20 cm^2 DARRION minor ax, A4C 7.4 cm Vol, S 70 ml DARRION/bsa minor ax, A4C 3.8 cm/m^2 Vol/bsa, S 36 ml/m^2 DARRION major ax, A2C 9.4 cm Vol, ES, 1-p A4C 59 ml ESD major ax, A2C 7.6 cm Vol/bsa, ES, 1-p A4C 30 ml/m^2 DARRION/bsa major ax, A2C 4.7 cm/m^2 Vol, ES, 1-p A2C 75 ml ESD/bsa major ax, A2C 3.9 cm/m^2 Vol/bsa, ES, 1-p A2C 38 ml/m^2 IVS, ED 1.0 cm Vol, ES, A/L 62 ml ESD 3.0 cm Vol/bsa, ES, A/L 31 ml/m^2 ESD/bsa 1.5 cm/m^2 PW, ED 1.0 cm Right atrium Value IVS/PW, ED 1 Area, ES 17 cm^2 EDV, 1-p A2C 126 ml Area, ES, A4C 17 cm^2 ESV, 1-p A2C 70 ml EF, 1-p A2C 55 % Aortic valve Value EDV/bsa, 1-p A2C 64 ml/m^2 Peak v, S 188.12 cm/sec ESV/bsa, 1-p A2C 35 ml/m^2 VTI, S 36.6 cm EDV, 1-p A4C 129 ml Mean grad, S 7 mm Hg ESV, 1-p A4C 53 ml Peak grad, S 14 mm Hg EF, 1-p A4C 59 % LVOT/AV, VTI ratio 0.6 SV, 1-p A4C 76 ml JOSESITO, VTI 1.91 cm^2 EDV/bsa, 1-p A4C 66 ml/m^2 JOSESITO/bsa, VTI 0.97 cm^2/m^2 ESV/bsa, 1-p A4C 27 ml/m^2 LVOT/AV, Vpeak ratio 0.53 SV/bsa, 1-p A4C 39 ml/m^2 JOSESITO, Vmax 1.7 cm^2 EDV, 2-p 130 ml JOSESITO/bsa, Vmax 0.86 cm^2/m^2 ESV, 2-p 55 ml EF, 2-p 58 % Mitral valve Value SV, 2-p 56 ml Peak E 128.44 cm/sec EDV/bsa, 2-p 66 ml/m^2 Peak A 129.52 cm/sec ESV/bsa, 2-p 28 ml/m^2 Decel time 139 ms SV/bsa, 2-p 28.5 ml/m^2 PHT 40 ms Peak grad, D 7 mm Hg LVOT Value Peak E/A ratio 0.99 Diam, S 2.0 cm MVA, PHT 5.45 cm^2 Area 3.2 cm^2 MVA/bsa, PHT 2.76 cm^2/m^2 Peak kassie, S 99.92 cm/sec VTI, S 21.8 cm Tricuspid valve Value Peak grad, S 4 mm Hg TR peak v 265.51 cm/sec SV 70 ml Peak RV-RA grad, S 28 mm Hg Qs 5.7 L/min Qs/bsa 2.9 L/(min-m^2) Ascending aorta Value SV/bsa 35 ml/m^2 AAo AP diam, S 3.3 cm AAo AP diam/bsa, S 1.7 cm/m^2 Legend: (L) and (H) leon values outside specified reference range. [facility] are accredited with the Intersocietal Accreditation Commission - Echocardiography. Prepared and Electronically Authenticated Griffin Dhaliwal Confirmed 04/30/2025 17:08 Procedure Note Griffin Dhaliwal MD - 04/30/2025 [facility] Echocardiography Laboratory [address] [place] [id number] Transthoracic Echocardiography Patient: Lizy Evans Study ID: ECHO COMPLETE- L Gender: F : 1970 Age: 54 Room: [facility] Study 04/30/2025 Pt Inpatient Date: Status: Study 12:50:28 PM CSN #: [id number] Time: Ordering:Deja Marie Metal Roofer: Fely Alvarado Indications and History: Cardiac Etiology: General; Elevatedtroponin. Summary and Conclusion: - Left ventricle: The cavity size is normal. There is mild focal basal hypertrophy of the septum. Global systolic function is normal. ForEpic reporting: the left ventricular ejection fraction is 58%. Nodiagnostic regional wall motion abnormality identified. Diastolic function is indeterminate. The longitudinal strain is -18.5% (Normal range is -18to -25). - Right ventricle: The cavity size is normal. Systolic function is lownormal. Systolic pressure is within the normal range. - Left atrium: The atrium is mildly dilated. - Right atrium: Pacer wire or catheter noted in right atrium. - Aortic valve: The annulus is mildly calcified. The valve is trileaflet.The leaflets are mildly thickened. Velocity is minimally increased. Thereis trivial stenosis. There is no significant regurgitation. The meansystolic gradient is 7mm Hg. - Mitral valve: The annulus is mildly calcified. The leaflets arethickened. There is mild regurgitation. - Tricuspid valve: There is mild regurgitation. Procedure information: Comparison is made to the study of 11/15/2024.Study status: Routine. Procedure: A transthoracic echocardiogram wasperformed. Image quality was adequate. Scanning was performed from the parasternal, apical, subcostal, and suprasternal notch acoustic windows.Study components: M-mode, 2D, complete spectral Doppler, and color Doppler. Height: 163.8cm. Height: 64.5in. Weight: 83kg. Weight: 183lb. BMI: 30.9kg/m^2. BSA: 1.97m^2. Blood pressure: 136/68 Studydate: 04/30/2025. Study time: 12:50 PM. Location: Bedside. Cardiac Anatomy: LEFT VENTRICLE: The cavity size is normal. There is mild focal basal hypertrophy of the septum. Global systolic function is normal. For Epic reporting: the left ventricular ejection fraction is 58%. No diagnostic regional wall motion abnormality identified. The longitudinal strain is-18.5% (Normal range is -18 to -25). Diastolic function is indeterminate. RIGHT VENTRICLE: The cavity size is normal. Systolic function is lownormal. Systolic pressure is within the normal range. LEFT ATRIUM: The atrium is mildly dilated. RIGHT ATRIUM: The atrium is normal in size. Pacer wire or catheter notedin right atrium. ATRIAL SEPTUM: No obvious PFO or ASD identified by 2D imaging and color Doppler. AORTIC VALVE: The annulus is mildly calcified. The valve is trileaflet.The leaflets are mildly thickened. Mobility is not restricted. Velocity is minimally increased. There is trivial stenosis. There is no significant regurgitation. MITRAL VALVE: The annulus is mildly calcified. The leaflets arethickened. Mobility is not restricted. No evidence for prolapse. There is noevidence for stenosis. There is mild regurgitation. TRICUSPID VALVE: Structurally normal valve. Mobility isunrestricted. There is no evidence for stenosis. There is mild regurgitation. PULMONIC VALVE: Not well visualized. The valve appears to be grosslynormal. There is no evidence for stenosis. There is no significantregurgitation. PERICARDIUM: There is no pericardial effusion. AORTA: Aortic root: The root is not dilated. Aortic arch: The vessel is not dilated. INTRACARDIAC MASS THROMBUS: No apparent intracavitary masses or thrombi detected. Measurements Left ventricle Value Right ventricle Value GLS, 2D -18.5 % DARRION, LAX 2.3cm DARRION, LAX 5.0 cm DARRION 2.3cm ESD, LAX 3.0 cm DARRION/bsa, LAX 2.5 cm/m^2 Left atrium Value ESD/bsa, LAX 1.5 cm/m^2 AP dim, ES 4.1cm FS, LAX 40 % AP dim index, ES 2.1cm/m^2 ESD major ax, A4C 7.4 cm SI dim, A4C 5.6cm ESD/bsa major ax, A4C 3.8 cm/m^2 Area ES, A4C 20cm^2 DARRION minor ax, A4C 7.4 cm Vol, S 70ml DARRION/bsa minor ax, A4C 3.8 cm/m^2 Vol/bsa, S 36ml/m^2 DARRION major ax, A2C 9.4 cm Vol, ES, 1-p A4C 59ml ESD major ax, A2C 7.6 cm Vol/bsa, ES, 1-p A4C 30ml/m^2 DARRION/bsa major ax, A2C 4.7 cm/m^2 Vol, ES, 1-p A2C 75ml ESD/bsa major ax, A2C 3.9 cm/m^2 Vol/bsa, ES, 1-p A2C 38ml/m^2 IVS, ED 1.0 cm Vol, ES, A/L 62ml ESD 3.0 cm Vol/bsa, ES, A/L 31ml/m^2 ESD/bsa 1.5 cm/m^2 PW, ED 1.0 cm Right atrium Value IVS/PW, ED 1 Area, ES 17cm^2 EDV, 1-p A2C 126 ml Area, ES, A4C 17cm^2 ESV, 1-p A2C 70 ml EF, 1-p A2C 55 % Aortic valve Value EDV/bsa, 1-p A2C 64 ml/m^2 Peak v, S 188.12cm/sec ESV/bsa, 1-p A2C 35 ml/m^2 VTI, S 36.6cm EDV, 1-p A4C 129 ml Mean grad, S 7 mmHg ESV, 1-p A4C 53 ml Peak grad, S 14 mmHg EF, 1-p A4C 59 % LVOT/AV, VTI ratio 0.6 SV, 1-p A4C 76 ml JOSESITO, VTI 1.91cm^2 EDV/bsa, 1-p A4C 66 ml/m^2 JOSESITO/bsa, VTI 0.97cm^2/m^2 ESV/bsa, 1-p A4C 27 ml/m^2 LVOT/AV, Vpeak ratio 0.53 SV/bsa, 1-p A4C 39 ml/m^2 JOSESITO, Vmax 1.7cm^2 EDV, 2-p 130 ml JOSESITO/bsa, Vmax 0.86cm^2/m^2 ESV, 2-p 55 ml EF, 2-p 58 % Mitral valve Value SV, 2-p 56 ml Peak E 128.44cm/sec EDV/bsa, 2-p 66 ml/m^2 Peak A 129.52cm/sec ESV/bsa, 2-p 28 ml/m^2 Decel time 139ms SV/bsa, 2-p 28.5 ml/m^2 PHT 40ms Peak grad, D 7 mmHg LVOT Value Peak E/A ratio 0.99 Diam, S 2.0 cm MVA, PHT 5.45cm^2 Area 3.2 cm^2 MVA/bsa, PHT 2.76cm^2/m^2 Peak kassie, S 99.92 cm/sec VTI, S 21.8 cm Tricuspid valve Value Peak grad, S 4 mm Hg TR peak v 265.51cm/sec SV 70 ml Peak RV-RA grad, S 28 mmHg Qs 5.7 L/min Qs/bsa 2.9 L/(min-m^2) Ascending aorta Value SV/bsa 35 ml/m^2 AAo AP diam, S 3.3cm AAo AP diam/bsa, S 1.7cm/m^2 Legend: (L) and (H) leon values outside specified reference range. [facility] are accredited with theIntersocietal Accreditation Commission - Echocardiography. Prepared and Electronically Authenticated Griffin Dhaliwal Confirmed 04/30/2025 17:08 us Deja Marie MD ORDERABLES Final Result INTERFACE SYSTEM Refer to clinic/hospital department * XR CHEST PA OR AP 1 VW (04/30/2025 11:11 AM CDT) Only the most recent of2 resultswithin the time period is included. Anatomical Region Laterality Modality Chest Computed Radiogr aphy 04/30/2025 11:1 1 AM CDT Impressions 04/30/2025 11:45 AM CDT IMPRESSION: See below. Exam: XR CHEST PA OR AP 1 VW Date/Time of Exam: 04/30/2025 11:11 AM Reason For Exam: Thoracentesis. Diagnosis: Right sided weakness. Findings: Comparison: 04/29/2025 There is cardiomegaly and vascular congestion. Dual lumen central venous catheter tip overlies right atrium. There is a decrease in now small right pleural fluid collection. There is vascular congestion without edema. No pneumothorax. No acute osseous findings. IMPRESSION: 1. Decrease in small pleural fluid collection without post procedural pneumothorax. Narrative Procedure Note Ronni Staples MD - 04/30/2025 IMPRESSION: See below. Exam: XR CHEST PA OR AP 1 VW Date/Time of Exam: 04/30/2025 11:11 AM Reason For Exam: Thoracentesis. Diagnosis: Right sided weakness. Findings: Comparison: 04/29/2025 There is cardiomegaly and vascular congestion. Dual lumen central venous catheter tip overlies right atrium. There is a decrease in now small right pleural fluid collection. There is vascular congestion without edema. No pneumothorax. No acute osseous findings. IMPRESSION: 1. Decrease in small pleural fluid collection without post procedural pneumothorax. us Ana Garcia PA-C DIAGNOSTIC IMAGING ORDERA BLES Final Result * US ASPIRATION PLEURA RIGHT (04/30/2025 10:23 AM CDT) Anatomical Region Laterality Modality Chest Ultrasound 04/30/2025 10:2 5 AM CDT Impressions 04/30/2025 12:09 PM CDT IMPRESSION: Please see below. Exam: US ASPIRATION PLEURA RIGHT Date/Time of Exam: 04/30/2025 10:23 AM Reason For Exam: Pleural Effusion. This procedure was performed and preliminary findings dictated by Ana Garcia PA-C. Supervision and final interpretation by Dr. Almaraz. CONSENT: Risks, benefits, and alternatives of the procedure were discussed with the patient. Specific risks of thoracentesis to include, but not limited to: bleeding, infection, pain, pneumothorax which might require placement of a chest tube or surgery to correct, damage to adjacent tissue/organs, and . The procedure may need to be repeated if the fluid sample obtained is non-diagnostic. Written informed consent was obtained from the patient. Procedure in Detail: A time out was performed to verify the patient and procedure. The patient was placed in a sitting position on the edge of the exam table, and ultrasound was utilized to evaluate the right thorax for largest pocket of free fluid. The area was marked, prepped, and draped in the usual sterile fashion. All elements of maximal sterile barrier technique, including hand hygiene and cutaneous antisepsis with an antisepsis agent, were used. Local anesthesia was achieved with 1% lidocaine overlying the proposed needle course. A 10 cm 5 Czech Yueh centesis catheter was inserted and approximately 1100 ml of a clear yellow pleural fluid was then removed via suction. The centesis catheter was removed in its entirety, the chlorhexidine cleansed from the skin, and a sterile dressing placed. The patient tolerated the procedure well without complications. A post procedural expiratory chest film will be ordered. Estimated Blood Loss: None Narrative Procedure Note Demetrio Almaraz MD - 04/30/2025 IMPRESSION: Please see below. Exam: US ASPIRATION PLEURA RIGHT Date/Time of Exam: 04/30/2025 10:23 AM Reason For Exam: Pleural Effusion. This procedure was performed and preliminary findings dictated by Ana Garcia PA-C. Supervision and final interpretation by Dr. Almaraz. CONSENT: Risks, benefits, and alternatives of the procedure were discussed with the patient. Specific risks of thoracentesis to include, but not limited to: bleeding, infection, pain, pneumothorax which might require placement of a chest tube or surgery to correct, damage to adjacent tissue/organs, and . The procedure may need to be repeated if the fluid sample obtained is non-diagnostic. Written informed consent was obtained from the patient. Procedure in Detail: A time out was performed to verify the patient and procedure. The patient was placed in a sitting position on the edge of the exam table, and ultrasound was utilized to evaluate the right thorax for largest pocket of free fluid. The area was marked, prepped, and draped in the usual sterile fashion. All elements of maximal sterile barrier technique, including hand hygiene and cutaneous antisepsis with an antisepsis agent, were used. Local anesthesia was achieved with 1% lidocaine overlying the proposed needle course. A 10 cm 5 Czech Yueh centesis catheter was inserted and approximately 1100 ml of a clear yellow pleural fluid was then removed via suction. The centesis catheter was removed in its entirety, the chlorhexidine cleansed from the skin, and a sterile dressing placed. The patient tolerated the procedure well without complications. A post procedural expiratory chest film will be ordered. Estimated Blood Loss: None Deja Marie MD US ORDERABLES Final Result * ADENOSINE DEAMINASE, PLEURAL FLUID (04/30/2025 9:57 AM CDT) ADENOSINE DEAMINASE, PLEURAL FLUID (Report) 9.0 <9.2 U/L 05/03/2025 1:51 PM CDT [facility] Comment: REFERENCE INTERVAL: ADENOSINE DEAMINASE Tuberculosis mean 92.1 U/L Metastatic malignancies mean 23.3 U/L Mesotheliomas mean 34.9 U/L Pulmonary embolism mean 23.8 U/L Lymphoma mean 64.3 U/L This test was performed using a kit that has not been cleared or approved by the FDA. The analytical performance characteristics of this test have been determined by [facility] [place], [place]. This test should not be used for diagnosis without confirmation by other medically established means. Body fluid SPECIMEN FROM LUNG / Unknown Collection / Unknown 04/30/2025 9:57 AM CDT 04/30/2025 11:49 AM CDT Narrative [facility] - 05/03/2025 1:51 PM CDT Performing Organization Information: Site ID: AMD Name: [facility] Address: [address] [place] [address] [place], [place] Director: Fan Bond M.D.,PhD Deja Marie MD BODY FLUIDS AND STOOLS Final R esult [facility] * ANAEROBIC/AEROBIC CULTURE W GRAM STAIN (04/30/2025 9:57 AM CDT) CULTURE No aerobic or anaerobic growth 05/03/2025 8:[address] [facility] GRAM STAIN No Polymorphonuclear WBC 05/03/2025 8:[address] [facility] GRAM STAIN No organisms observed 05/03/2025 8:[address] [facility] Body fluid (Pleura, right) Collection / Unknown 04/30/2025 9:57 AM CDT 04/30/2025 11:49 AM CDT us Deja Marie MD MICROBIOLOGY - GENERAL ORDERAB LES Final Result [facility] CLIA # [id number] [facility] [address] [place] [address] * (ABNORMAL) CELL COUNT WITH DIFFERENTIAL, BODY FLUID (04/30/2025 9:57 AM CDT) APPEARANCE, BODY FLUID Clear 04/30/2025 12:[address] [facility] COLOR, FLD Yellow 04/30/2025 12:[address] [facility] TOTAL NUCLEATED CELLS, FLD (AUTO) 326 1,395 - 3,734 /ul 04/30/2025 12:[address] [facility] TOTAL RBC'S, FLD (AUTO) <3,000 No Ref Range Estab /ul 04/30/2025 12:37 PM [facility] NEUTROPHILS, FLD 4(H) 0 - 1 % 04/30/20 25 12:[facility] L[facility]MPHOC[facility]TE, FLD 7(L) 18 - 36 % 5 12:[address] [facility] MONOCYTE/MACROPH AGE, FLD 86(H) 64 - 80 % 04/30/2025 12:[address] [facility] MESOTHELIAL FLD 3(H) 0 - 2 % 12:37 PM [facility] Body fluid (Pleura, right) Collection / Unknown 04/30/2025 9:57 AM CDT 04/30/2025 11:49 AM CDT Deja Marie MD BODY FLUIDS AND STOOLS Final R [facility] Performing Organization Address [facility] Co de Phone Number [facility] CLIA # [id number] [address] [address] * PROTEIN, BODY FLUID (04/30/2025 9:57 AM CDT) PROTEIN, FLD 3.0 g/dL 04/30/2025 12:[address] [facility] Body fluid (Pleura, right) Collection / Unknown 04/30/2025 9:57 AM CDT 04/30/2025 11:49 AM CDT Narrative [facility] - 04/30/2025 12:32 PM CDT Interpretive Criteria: Transudate: <2.0 g/dL Exudate: >2.0 g/dL The reference range and other method performance specifications are unavailable for this body fluid. Comparison of this result with the concentration in the blood, serum, or plasma is recommended. Deja Marie MD BODY FLUIDS AND STOOLS Final R jesse Performing Organization Address [facility] de Phone Number [facility] CLIA # [id number] [address] [address] * LACTATE DEHYDROGENASE, BODY FLUID (04/30/2025 9:57 AM CDT) LD, FLD 184 U/L 04/30/2025 12:[address] [facility] Body fluid (Pleura, right) Collection / Unknown 04/30/2025 9:57 AM CDT 04/30/2025 11:49 AM CDT Narrative [facility] - 04/30/2025 12:32 PM CDT Interpretive Criteria: Transudate: < 200 U/L or Fluid/Serum Ratio < 0.6 Exudate: > 200 U/L or Fluid/Serum Ratio > 0.6 The reference range and other method performance specifications are unavailable for this body fluid. Comparison of this result with the concentration in the blood, serum or plasma is recommended. Deja Marie MD BODY FLUIDS AND STOOLS Final R ult Performing Organization Address [facility] de Phone Number [facility] CLIA # [id number] [facility] [address] * GLUCOSE, BODY FLUID (04/30/2025 9:57 AM CDT) GLUCOSE, FLD 385 mg/dL 04/30/2025 12:[address] [facility] Body fluid (Pleura, right) Collection / Unknown 04/30/2025 9:57 AM CDT 04/30/2025 11:49 AM CDT [facility] - 04/30/2025 12:32 PM CDT Interpretive Criteria: Transudate: Fluid/Serum Ratio >0.5 Exudate: Fluid/Serum Ratio <0.5 or Fluid Glucose <60 mg/dL The reference range and other method performance specifications are unavailable for this body fluid. Comparison of this result with the concentration in the blood, serum or plasma is recommended. Deja Marie MD BODY FLUIDS AND STOOLS Final R esult Performing Organization Address [facility] Co de Phone Number [facility] CLIA # [id number] [address] [address] * PH, BODY FLUID (04/30/2025 9:57 AM CDT) PH, FLD 7.47 04/30/2025 12:[address] [facility] Body fluid (Pleura, right) Collection / Unknown 04/30/2025 9:57 AM CDT 04/30/2025 11:49 AM CDT [address]arr[address] [facility] - 04/30/2025 12:24 PM CDT Reference Range: Normal Serous Fluids (pleural,pericardial) = 7.40 - 7.64 Pleural Transudates: 7.40 - 7.50 Exudates: 7.35 - 7.45 No Reference range established for other fluid types. Pleural fluid pH < 7.30 can be seen with empyema, malignancy, rheumatoid pleurisy, SLE, tuberculosis, and esophageal rupture. A pH < 6.00 is suggestive of esophageal rupture. us Deja Marie MD BODY FLUIDS AND STOOLS Final [id number] [address] [place] [id number] * CYTOLOGY, NON GYNE (04/30/2025 9:57 AM CDT) CASE REPORT Medical Cytology Report Case: [id number] Authorizing Provider: Deja Marie MD Collected: 04/30/2025 09:57 AM Ordering Location: [facility] Received: 04/30/2025 12:30 PM Emergency Department Pathologist: Kayla Flores DO Specimen: Pleural fluid, right 12:56 PM CDT [facility] [facility] FINAL DIAGNOSIS A. Right pleural fluid, ThinPrep cytology and cell block - Negative for malignant cells - Mesothelial cells and histiocytes Kayla Flores DO [id number] 12:[address] [facility] at 1256 CDT GROSS DESCRIPTION A. Right pleural fluid - 60 ml cloudy yellow fluid processed for ThinPrep and cell block A2. 12:[address] [facility] CLINICAL INFORMATION No Dx found. 12:[address] [facility] COMMENT The [employer] voice-activated dictation system may have been used in the creation of this report. Inherent to this system is the possibility of errors in syntax, grammar, punctuation, or other areas that could impact interpretation. If there are interpretive questions about the report, please contact the performing pathologist. Unless gross only is specified in the diagnosis, the microscopic examination substantiates the above cited diagnosis. The performance characteristics of all immunohistochemical stains cited in this report (if any) were determined by the [facility] of [facility] in compliance with CLIA'88 regulations. Some of these tests rely on the use of analyte specific reagents and are subject to specific labeling requirements by the FDA. All controls show appropriate reactivity. This testing was developed by the [facility] of [facility]. It has not been cleared or approved by the FDA. The FDA has determined that such clearance or approval is not necessary. 12:[address] [facility] Body fluid PLEURAL FLUID SPECIMEN / Unknown Collection / Unknown 04/30/2025 9:57 AM CDT 04/30/2025 12:30 PM CDT Deja Marie MD PATHOLOGY/CYTOLOGY ORDERABLES Final Result Performing Organization Address City/[facility]/ZIP Co de Phone Number [facility] CLIA # [id number] [address] [place] [phone] * (ABNORMAL) LACTATE DEHYDROGENASE (04/30/2025 4:31 AM CDT) LD (LACTATE DEHYDROGENASE) 287(H) 135 - 214 U/L 04/30/2025 5:[address] [facility] Blood Venipuncture / Unknown 04/30/2025 4:31 AM CDT 04/30/2025 4:57 AM CDT Deja Marie MD CHEMISTRY ORDERABLES Final Res ult [facility] CLIA # [id number] [address] [address] * HEMOGLOBIN A1C (04/30/2025 4:31 AM CDT) Only the most recent of2 resultswithin the time period is included. HEMOGLOBIN A1C 5.0 <=5.6 % 05/02/2025 11:[address] [facility] EST. AVG GLUCOSE, A1C 97 mg/dL 05/02/2025 11:[address] [facility] Blood Venipuncture / Unknown 04/30/2025 4:31 AM CDT 04/30/2025 4:57 [address] [facility] - 05/02/2025 11:31 AM CDT HGB A1C INTERPRETATION NORMAL: <5.7% PRE-DIABETES: 5.7 - 6.4% DIABETES: 6.5% OR GREATER us Deja Marie MD CHEMISTRY ORDERABLES Final Res ult [facility] CLIA # [id number] [address] [place] [address] * (ABNORMAL) URINALYSIS WITH REFLEX MICROSCOPIC (04/30/2025 2:05 AM CDT) COLOR UA Yellow Pale to Dark Yellow 04/30/2025 2:[address] [facility] CLARITY UA Turbid(A) Clear 04/30/2025 2:[address] [facility] SPECIFIC GRAVITY UA 1.019 1.003 - 1.035 04/30/2025 2:[address] [facility] PH UA 6.5 5.0 - 8.0 04/30/2025 2:[address] [facility] LEUKOCYTE ESTERASE UA 3+(A) Negative 04/30/2025 2:[address] [facility] NITRITE UA Negative Negative 04/30/2025 2:[address] [facility] PROTEIN UA 3+(A) Negative 04/30/2025 2:[address] [facility] GLUCOSE UA 3+(A) Negative 04/30/2025 2:[address] [facility] KETONES UA Negative Negative 04/30/2025 2:[address] [facility] UROBILINOGEN UA <2.0 <2.0 mg/dL 2:[address] [facility] BILIRUBIN UA Negative Negative 04/30/2025 2:[address] [facility] BLOOD UA 2+(A) Negative 04/30/2025 2:[address] [facility] WBC UA >100(A) 0 - 2 /hpf 04/30/2025 2:[address] [facility] RBC UA 6-10(A) 0 - 2 /hpf 04/30/2025 2:[address] [facility] BACTERIA UA 2+(A) Negative /hpf 04/30/2025 2:[address] [facility] EPITHELIAL CELLS, URINE 0-5 0 - 5 /hpf 04/30/2025 2:[address] [facility] Urine URINE SPECIMEN OBTAINED BY CLEAN CATCH PROCEDURE / Unknown Collection / Unknown 04/30/2025 2:05 AM CDT 04/30/2025 2:11 AM CDT us Deja Marie MD URINE ORDERABLES Final Result [facility] CLIA # [id number] [address] [place] [address] [place] [address] * (ABNORMAL) URINE CULTURE (04/30/2025 2:05 AM CDT) CULTURE KLEBSIELLA OXYTOCA(A) GARETH MCG/ML 05/02/2025 7:[address] [facility] Urine URINE SPECIMEN OBTAINED BY CLEAN CATCH PROCEDURE / Unknown Collection / Unknown 04/30/2025 2:05 AM CDT 04/30/2025 2:11 AM CDT Narrative Organism Antibiotic Method Susceptibility Klebsiella oxytoca CEFAZOLIN GARETH MCG/ML 16 mcg/mL: Susceptible Comment:Cefazolin woods sceptible interpretation applies to uncomplicated urinary tract infections (UTI) only. If patient has a complicated UTI consider either using a 3rd generation cephalosporin (ie- ceftriaxone). If cefazolin susceptibility testing is necessary for treatment of this patient, contact Microbiology for additional testing. Klebsiella oxytoca CEFTRIAXONE GARETH MCG/ML <=1 mcg/mL: Susceptible Klebsiella oxytoca GENTAMICIN GARETH MCG/ML <=1 mcg/mL: Susceptible Klebsiella oxytoca TOBRAMYCIN GARETH MCG/ML <=1 mcg/mL: Susceptible Klebsiella oxytoca CIPROFLOXACIN GARETH MCG/ML <=0.25 mcg/mL: Susceptible Klebsiella oxytoca LEVOFLOXACIN GARETH MCG/ML <=0.12 mcg/mL: Susceptible Klebsiella oxytoca TRIMETHOPRIM/ SULFAMETHOXAZOLE GARETH MCG/ML <=20 mcg/mL: Susceptible Klebsiella oxytoca NITROFURANTOIN GARETH MCG/ML <=16 mcg/mL: Susceptible Klebsiella oxytoca AMPICILLIN GARETH MCG/ML >=32 mcg/mL: Resistant Klebsiella oxytoca AMPICILLIN/ SULBACTAM GARETH MCG/ML 8 mcg/mL: Susceptible Klebsiella oxytoca PIPERACILLIN/ TAZOBACTAM GARETH MCG/ML <=4 mcg/mL: Susceptible Comment:Aminoglycosides shou ld not be used as monotherapy for infections outside the urinary tract. Consultation with an infectious diseases specialist is recommended. us Deja Marie MD MICROBIOLOGY - GENERAL ORDERAB LES Final Result [facility] # [id number] [address] [place] [address] [place] [address] * TSH REFLEXIVE (04/29/2025 9:07 PM CDT) TSH 4.01 0.27 - 4.20 uIU/mL 04/29/2025 10:[address] [facility] Blood Venipuncture / Unknown 04/29/2025 9:07 PM CDT 04/29/2025 9:24 PM CDT Karol Gastelum DO CHEMISTRY ORDERABLES Final Re sult Performing Organization Address [facility]/ZIP Co de Phone Number [facility] CLIA # [id number] [address] [address] [place] [address] * BLOOD CULTURE (04/29/2025 9:05 PM CDT) Only the most recent of2 resultswithin the time period is included. Pathologist [facility] BLOOD CULTURE No growth 05/04/2025 10:[address] [facility] Blood (Peripheral) Venipuncture / Unknown 04/29/2025 9:05 PM CDT 04/29/2025 9:23 PM CDT Deja Marie MD MICROBIOLOGY - GENERAL ORDERAB LES Final Result Performing Organization Address [facility] Co de Phone Number [facility] CLIA # [id number] [address] [address] * (ABNORMAL) TROPONIN 6 HR, 5TH GEN (04/29/2025 4:49 PM CDT) Pathologist [facility] TROPONIN T, 6 HR 5TH GEN 191(HH) <11 ng/L 04/29/2025 5:[address] [facility] Blood Venipuncture / Unknown 04/29/2025 4:49 PM CDT 04/29/2025 5:[address] [facility] - 04/29/2025 5:46 PM CDT Troponin elevated. Unable to calculate delta. Karol Gastelum DO CHEMISTRY ORDERABLES Final Re sult Performing Organization Address City/[facility]/ZIP Co de Phone Number [facility] CLIA # [id number] [address] [address] * (ABNORMAL) IRON, TIBC, AND PERCENT SATURATION (04/29/2025 4:49 PM CDT) Pathologist [facility] IRON 42 37 - 145 ug/dL 04/29/2025 6:[address] [facility] TIBC 172(L) 250 - 450 ug/dL 04/29/2025 6:[address] [facility] IRON % SATURATION 24 15 - 60 % 04/29/2025 6:[address] [facility] Blood Venipuncture / Unknown 04/29/2025 4:49 PM CDT 04/29/2025 5:01 PM CDT Deja Marie MD CHEMISTRY ORDERABLES Final Res ult Performing Organization Address City/[facility]/ZIP Co de Phone Number [facility] CLIA # [id number] [address] [address] * (ABNORMAL) FERRITIN (04/29/2025 4:49 PM CDT) FERRITIN 1,545.0(H) 13.0 - 150.0 ng/mL 04/29/2025 6:[address] [facility] Blood Venipuncture / Unknown 04/29/2025 4:49 PM CDT 04/29/2025 5:01 PM CDT Deja Marie MD CHEMISTRY ORDERABLES Final Res ult [facility] CLIA # [id number] [address] [address] * EKG 12-LEAD (04/29/2025 3:54 PM CDT) Only the most recent of2 resultswithin the time period is included. 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1970 Requested By: Order Number: [id number] Reading MD: Brady Clarke Measurements Intervals [place] Rate: 63 P: -10 [place]: 162 QRS: 5 QRSD: 88 T: -49 QT: 516 QTc: 528 Interpretive Statements Normal sinus rhythm Low voltage QRS Nonspecific T wave abnormality Prolonged QT Abnormal ECG Electronically Signed On 04-30-2025 16:40:08 CDT by Brady Clarke Procedure Note Brady Clarke MD - 04/30/[address] [address] Test Date: 2025-04-29 Pat Name: LIZY EVANS Department: 11 Room: 04 04 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1970 Requested By: Order Number: [id number] Reading : Brady Clarke Measurements Intervals [place] Rate: 63 P: -10 [place]: 162 QRS: 5 QRSD: 88 T: -49 QT: 516 QTc: 528 Interpretive Statements Normal sinus rhythm Low voltage QRS Nonspecific T wave abnormality Prolonged QT Abnormal ECG Electronically Signed On 04-30-2025 16:40:08 CDT by Brady Clarke us Karol Gastelum DO ECG ORDERABLES Final Result INTERFACE SYSTEM Refer to clinic/hospital department * (ABNORMAL) TROPONIN 2 HR, 5TH GEN (04/29/2025 12:45 PM CDT) TROPONIN T, 2 HR 5TH GEN 191(HH) <=10 ng/L 04/29/2025 1:17 PM CDT [facility] DELTA 2HR TROPONIN T % -6 See Interp. % 04/29/2025 1:17 PM CDT [facility] Blood BLOOD SPECIMEN / Unknown Venipuncture / Unknown 04/29/2025 12:45 PM CDT 04/29/2025 12:58 PM CDT Narrative [facility] - 04/29/2025 1:17 PM CDT Troponin elevated. Delay in collection of timed specimen beyond recommended collection interval. Results must be interpreted in clinical context. Delta not changing. us Gregg Sandoval MD CHEMISTRY ORDERABLES Final Resu lt [facility] CLIA # [id number] [address] [place] [address] * CTA CHEST W AND/OR WO CONTRAST (04/29/2025 11:59 AM CDT) Anatomical Region Laterality Modality Chest Computed Tomogra phy 04/29/2025 11:3 3 AM CDT Impressions 04/29/2025 12:34 PM CDT IMPRESSION: Please see below. Exam: CTA CHEST W AND/OR WO CONTRAST Date/Time of Exam: 04/29/2025 11:59 AM Reason For Exam: Acute aortic syndrome (AAS) suspected. Diagnosis: See Reason for Exam. Technique: CTA of the chest was performed prior to and/or following the administration of intravenous contrast. Post-processing was performed, including sagittal and coronal reformations and 3-D reconstruction. Contrast (if used): IOPAMIDOL 61 % INTRAVENOUS SOLUTION (SINGLE USE VIAL) Given:100 mL. Comparison: March 24, 2024. FINDINGS: Suboptimal exam secondary to bolus timing. Within limitations of the exam, there is no evidence of central pulmonary thromboembolic disease. Subsegmental branches are not well assessed on this exam. There is a large right and moderate left pleural effusion with a small pericardial effusion. There are coronary artery calcifications. There are subcentimeter mediastinal lymph nodes. There is cholelithiasis without evidence of acute cholecystitis. Few nonspecific mildly prominent retroperitoneal lymph nodes measure 13 mm in short axis, unchanged from prior study suggestive of benign etiology. There is no evidence of acute fracture or dislocation. There are mild degenerative changes in the thoracic spine with small marginal osteophytes. There is is a continuation with groundglass airspace disease seen bilaterally. There is mild consolidation in the right middle lobe. There is right lower lobe and left lower lobe atelectasis. IMPRESSION: 1. No evidence of central pulmonary thromboembolic disease. 2. Large right and moderate left pleural effusions with compressive atelectasis. 3. There is faint mild ground glass airspace disease bilaterally which could be secondary to fluid overload or an infectious/inflammatory process. 4. Cholelithiasis without evidence of acute cholecystitis. Narrative Procedure Note Sarath Lawrence MD - 04/29/2025 IMPRESSION: Please see below. Exam: CTA CHEST W AND/OR WO CONTRAST Date/Time of Exam: 04/29/2025 11:59 AM Reason For Exam: Acute aortic syndrome (AAS) suspected. Diagnosis: See Reason for Exam. Technique: CTA of the chest was performed prior to and/or following the administration of intravenous contrast. Post-processing was performed, including sagittal and coronal reformations and 3-D reconstruction. Contrast (if used): IOPAMIDOL 61 % INTRAVENOUS SOLUTION (SINGLE USE VIAL) Given:100 mL. Comparison: March 24, 2024. FINDINGS: Suboptimal exam secondary to bolus timing. Within limitations of the exam, there is no evidence of central pulmonary thromboembolic disease. Subsegmental branches are not well assessed on this exam. There is a large right and moderate left pleural effusion with a small pericardial effusion. There are coronary artery calcifications. There are subcentimeter mediastinal lymph nodes. There is cholelithiasis without evidence of acute cholecystitis. Few nonspecific mildly prominent retroperitoneal lymph nodes measure 13 mm in short axis, unchanged from prior study suggestive of benign etiology. There is no evidence of acute fracture or dislocation. There are mild degenerative changes in the thoracic spine with small marginal osteophytes. There is is a continuation with groundglass airspace disease seen bilaterally. There is mild consolidation in the right middle lobe. There is right lower lobe and left lower lobe atelectasis. IMPRESSION: 1. No evidence of central pulmonary thromboembolic disease. 2. Large right and moderate left pleural effusions with compressive atelectasis. 3. There is faint mild ground glass airspace disease bilaterally which could be secondary to fluid overload or an infectious/inflammatory process. 4. Cholelithiasis without evidence of acute cholecystitis. us Gregg Sandoval MD CT ORDERABLES Final Result * CT HEAD W + ST NECK W (04/29/2025 11:59 AM CDT) Anatomical Region Laterality Modality Head Computed Tomogra phy 04/29/2025 11:3 9 AM CDT Impressions 04/29/2025 1:05 PM CDT IMPRESSION: Please see below. Exam: CT HEAD W + ST NECK W Date/Time of Exam: 04/29/2025 11:59 AM Reason For Exam: Transient ischemic attack (TIA). Diagnosis: See Reason for Exam. Technique: CT of the head and neck with contrast. Contrast: IOPAMIDOL 61 % INTRAVENOUS SOLUTION (SINGLE USE VIAL) Given:100 mL Findings: Of note, this was performed in the venous phase and is not optimized to visualize the arteries. No acute infarction, hemorrhage or extra-axial collection. Mild sequela small vessel ischemic disease. No hydrocephalus. Basal cisterns are patent. No acute osseous abnormality. The paranasal sinuses and mastoid air cells are clear. Prior cataract surgery. Heavily calcified intracranial internal carotid arteries the neck. Questionable peripheral calcified aneurysm arising from the supraclinoid left ICA measuring 5 mm. The proximal M1 segment of the MCAs are grossly patent. The proximal A1 and A2 segments are grossly patent. Grossly patent basilar artery. The proximal P1 and P2 segment grossly patent. Three-vessel origin of the aortic arch. The common carotid arteries are grossly patent. The carotid bifurcations demonstrate calcified plaque. No obvious stenosis of the ICAs. The cervical vertebral arteries are poorly visualized. There is calcification of the intradural vertebral arteries. Moderate bilateral pleural effusions, right worse than left. Mild pulmonary edema. Right central venous catheter present. Soft tissues in the neck demonstrate no acute abnormality. No acute fracture or aggressive osseous lesion. IMPRESSION: Late contrast bolus timing, which is essentially in the venous phase. No gross large vessel occlusion or significant stenosis; however, if there is continued concern for ischemia/infarction, repeat CTA of the head with arterial timing or MRI of the brain with MRA of the head and neck could be performed. Questionable 5 mm aneurysm arising from the supraclinoid left ICA. This could also be evaluated with CTA or MRA. Narrative Procedure Note Fan Pena, DO - 04/29/2025 IMPRESSION: Please see below. Exam: CT HEAD W + ST NECK W Date/Time of Exam: 04/29/2025 11:59 AM Reason For Exam: Transient ischemic attack (TIA). Diagnosis: See Reason for Exam. Technique: CT of the head and neck with contrast. Contrast: IOPAMIDOL 61 % INTRAVENOUS SOLUTION (SINGLE USE VIAL) Given:100 mL Findings: Of note, this was performed in the venous phase and is not optimized to visualize the arteries. No acute infarction, hemorrhage or extra-axial collection. Mild sequela small vessel ischemic disease. No hydrocephalus. Basal cisterns are patent. No acute osseous abnormality. The paranasal sinuses and mastoid air cells are clear. Prior cataract surgery. Heavily calcified intracranial internal carotid arteries the neck. Questionable peripheral calcified aneurysm arising from the supraclinoid left ICA measuring 5 mm. The proximal M1 segment of the MCAs are grossly patent. The proximal A1 and A2 segments are grossly patent. Grossly patent basilar artery. The proximal P1 and P2 segment grossly patent. Three-vessel origin of the aortic arch. The common carotid arteries are grossly patent. The carotid bifurcations demonstrate calcified plaque. No obvious stenosis of the ICAs. The cervical vertebral arteries are poorly visualized. There is calcification of the intradural vertebral arteries. Moderate bilateral pleural effusions, right worse than left. Mild pulmonary edema. Right central venous catheter present. Soft tissues in the neck demonstrate no acute abnormality. No acute fracture or aggressive osseous lesion. IMPRESSION: Late contrast bolus timing, which is essentially in the venous phase. No gross large vessel occlusion or significant stenosis; however, if there is continued concern for ischemia/infarction, repeat CTA of the head with arterial timing or MRI of the brain with MRA of the head and neck could be performed. Questionable 5 mm aneurysm arising from the supraclinoid left ICA. This could also be evaluated with CTA or MRA. Gregg Sandoval MD CT ORDERABLES Final Result * CT HEAD WO CONTRAST (04/29/2025 10:18 AM CDT) Anatomical Region Laterality Modality Head Computed Tomogra phy 04/29/2025 10:0 3 AM CDT Impressions 04/29/2025 10:39 AM CDT IMPRESSION: 1. No acute intracranial abnormality. 2. Mild chronic microangiopathic changes. Narrative 04/29/2025 10:39 AM CDT EXAM: CT HEAD WO CONTRAST DATE/TIME OF EXAM: 04/29/2025 10:18 AM REASON FOR STUDY: Syncope/presyncope, cerebrovascular cause suspected DIAGNOSIS: See Reason for Exam COMPARISON: March 24, 2024. TECHNIQUE: CT head performed without contrast. FINDINGS: No evidence of an acute territorial infarct, parenchymal hemorrhage, hydrocephalus or abnormal extra-axial fluid collection. No midline shift. Basilar cisterns remain patent. Mild chronic microangiopathic changes in the periventricular white matter. No mastoid effusion. No paranasal sinus fluid level. No calvarial fracture. No sizable scalp hematoma. Procedure Note Demetrio Pena MD - 04/29/2025 EXAM: CT HEAD WO CONTRAST DATE/TIME OF EXAM: 04/29/2025 10:18 AM REASON FOR STUDY: Syncope/presyncope, cerebrovascular cause suspected DIAGNOSIS: See Reason for Exam COMPARISON: March 24, 2024. TECHNIQUE: CT head performed without contrast. FINDINGS: No evidence of an acute territorial infarct, parenchymal hemorrhage, hydrocephalus or abnormal extra-axial fluid collection. No midline shift. Basilar cisterns remain patent. Mild chronic microangiopathic changes in the periventricular white matter. No mastoid effusion. No paranasal sinus fluid level. No calvarial fracture. No sizable scalp hematoma. IMPRESSION: 1. No acute intracranial abnormality. 2. Mild chronic microangiopathic changes. Gregg Sandoval MD CT ORDERABLES Final Result * (ABNORMAL) TROPONIN BASELINE, 5TH GEN (04/29/2025 10:00 AM CDT) TROPONIN T, BASELINE 5TH GEN 203(HH) <=10 ng/L 04/29/2025 11:52 AM CDT [facility] Blood Venipuncture / Unknown 04/29/2025 10:00 AM CDT 04/29/2025 11:36 AM CDT [facility] - 04/29/2025 11:52 AM CDT Troponin elevated. us Gregg Sandoval MD CHEMISTRY ORDERABLES Final Resu lt Performing Organization Address [facility]/ZIP Co de Phone Number [facility] # [id number] [address] [place] [address] * PTT (04/29/2025 10:00 AM CDT) PTT 32.5 25.1 - 35.4 seconds 04/29/2025 10:35 AM CDT [facility] Blood BLOOD SPECIMEN / Unknown Venipuncture / Unknown 04/29/2025 10:00 AM CDT 04/29/2025 10:11 AM CDT us Gregg Sandoval MD HEMATOLOGY ORDERABLES Final Res ult Performing Organization Address [facility] Phone Number [facility] # [id number] [address] [place] [address] * PROTIME-INR (04/29/2025 10:00 AM CDT) PROTIME 13.9 12.1 - 14.3 Seconds 04/29/2025 10:35 AM CDT [facility] INR 1.1 0.9 - 1.1 04/29/2025 10:35 AM CDT [facility] Blood BLOOD SPECIMEN / Unknown Venipuncture / Unknown 04/29/2025 10:00 AM CDT 04/29/2025 10:11 AM CDT us Gregg Sandoval MD HEMATOLOGY ORDERABLES Final Res ult Performing Organization Address [facility] Co de Phone Number [facility] # [id number] [address] [place] [address] * (ABNORMAL) BRAIN NATRIURETIC PEPTIDE, BNP OR PROBNP (04/29/2025 10:00 AM CDT) PROBNP, N TERMINAL 66,901(H) 0 - 125 pg/mL 04/29/2025 10:51 AM CDT [facility] Comment: INTERPRETIVE COMMENT based on diagnosis: Diagnostic NT pro-BNP cutoffs for Heart Failure in the absence of renal failure is suggested for the following ranges <75 years: <125 pg/mL >=75 years: <450 pg/mL Exclusionary rule out cut-point for Acute Decompensated Heart Failure(ADHF) All ages: <300 pg/mL Diagnostic NT pro-BNP cutoffs for Acute Decompensated Heart Failure(ADHF) in the absence of renal failure is suggested for the following ages <50 years: > 450 pg/mL 50-75 years: > 900 pg/mL >75 years: >1800 pg/mL Blood BLOOD SPECIMEN / Unknown Venipuncture / Unknown 04/29/2025 10:00 AM CDT 04/29/2025 10:12 AM CDT us Gregg Sandoval MD CHEMISTRY ORDERABLES Final Resu lt Performing Organization Address City/[facility]/ZIP Co de Phone Number [facility] CLIA # [id number] [address] [place] [phone] * MAGNESIUM LEVEL (04/29/2025 10:00 AM CDT) Pathologist [facility] MAGNESIUM 1.9 1.6 - 2.6 mg/dL 04/29/2025 10:35 AM CDT [facility] Blood BLOOD SPECIMEN / Unknown Venipuncture / Unknown 04/29/2025 10:00 AM CDT 04/29/2025 10:12 AM CDT us Gregg Sandoval MD CHEMISTRY ORDERABLES Final Resu lt Performing Organization Address City/[facility]/ZIP Co de Phone Number [facility] CLIA # [id number] [address] [place] [phone] * (ABNORMAL) COMPREHENSIVE METABOLIC PANEL (04/29/2025 10:00 AM CDT) SODIUM 137 136 - 145 mmol/L 04/29/2025 10:35 AM [facility] POTASSIUM 4.0 3.5 - 5.1 mmol/L 04/29/2025 10:35 AM [facility] CHLORIDE 97(L) 98 - 107 mmol/L 04/29/2025 10:35 AM [facility] CO2 18(L) 22 - 29 mmol/L 04/29/2025 10:35 AM [facility] CALCIUM 8.7 8.6 - 10.0 mg/dL 04/29/2025 10:35 AM [facility] BUN 77(H) 6 - 20 mg/dL 04/29/2025 10:35 AM [facility] CREATININE 10.30(H) 0.51 - 0.95 mg/dL 04/29/2025 10:35 AM [facility] GLUCOSE 214(H) 74 - 99 mg/dL 04/29/2025 10:35 AM [facility] TOTAL PROTEIN 6.5(L) 6.6 - 8.7 g/dL 04/29/2025 10:35 AM [facility] ALBUMIN 3.4(L) 3.5 - 5.2 g/dL 04/29/2025 10:35 AM [facility] BILIRUBIN TOTAL 0.3 0.0 - 1.2 mg/dL 04/29/2025 10:35 AM [facility] ALKALINE PHOSPHATASE 77 35 - 104 U/L 04/29/2025 10:35 AM [facility] AST 26 0 - 35 U/L 04/29/2025 10:35 AM [facility] ALT 13 0 - 35 U/L 04/29/2025 10:35 AM [facility] GFR 4(L) >=60 mL/min/1.7 3 sq meter 04/29/2025 10:35 AM [facility] Comment:eGFR calculated with 2020 CKD-EPI equation. Vegetarian diet, extremely high or low muscle mass, and may affect results. Cystatin C with Glomerular Filtration Rate is a suitable alternative for these patients. ANION GAP 22(H) 5 - 20 mmol/L 04/29/2025 10:35 AM CDT [facility] Blood BLOOD SPECIMEN / Unknown Venipuncture / Unknown 04/29/2025 10:00 AM CDT 04/29/2025 10:12 AM CDT us Gregg Sandoval MD CHEMISTRY ORDERABLES Final Resu lt [facility] CLIA # [id number] [address] [place] [id number] * (ABNORMAL) MICROALBUMIN/CREATININE RATIO, RANDOM UR (03/24/2024 11:27 PM CDT) Creatinine, Urine 50 20 - 275 mg/dL 03/26/2024 3:34 PM CDT [facility] MICROALBUMIN, URINE 188.0 See Note: mg/dL 03/26/2024 3:34 PM CDT [facility] Comment: Reference Range: Reference Range Not established Verified by repeat analysis. MICROALBUMIN/CREAT RATIO, UR 3760(H) <30 mg/g creat 03/26/2024 3:34 PM CDT [facility] Comment: The ADA defines abnormalities in albumin excretion as follows: Albuminuria Category Result (mg/g creatinine) Normal to Mildly increased <30 Moderately increased 30-299 Severely increased > OR = 300 The ADA recommends that at least two of three specimens collected within a 3-6 month period be abnormal before considering a patient to be within a diagnostic category. Urine URINE SPECIMEN OBTAINED BY CLEAN CATCH PROCEDURE / Unknown Collection / Unknown 03/24/2024 11:27 PM CDT 03/24/2024 11:33 PM CDT Narrative [facility] - 03/26/2024 3:34 PM CDT Performing Organization Information: Site ID: [id number] Name: [employer] Address: [id number] [id number] Director: Alonzo Etienne MD us Saad Flores MD URINE ORDERABLES Final Resul t [facility] from Last 3 Months or Most Recently Relevant to Health Maintenance Insurance [place]ID [place] [facility] DUAL COMPLETE O [facility] [id number] RX [employer] RX Member Subscriber Plan / Payer (Ef fective 2023-Present) Name:Lizy Evans Relation to Subscriber:Self Name:Lizy Evans Payer ID:Not on file Group ID:[id number] Type:RX Medicare Part D Address: [address] [facility] [employer] Medicaid Advance Directives For more information, please contact: [phone] * Full Code (Latest Code Status on File) Date Activated Date Inactivated Comments 04/29/2025 5:50 PM 05/04/2025 2:02 PM * Full Code Date Activated Date Inactivated Comments 08/30/2024 8:44 AM 08/30/2024 12:37 PM * Full Code Date Activated Date Inactivated Comments 04/26/2024 9:38 AM 04/26/2024 2:24 PM * Full Code Date Activated Date Inactivated Comments 03/24/2024 11:30 PM 03/30/2024 6:37 PM Care Teams Scleroscope Tester Relationship Specialty Start Date End Date Joellen Hill FNP [address] [place] [id number] PCP - General Nurse Practitioner Family 07/06/21
--- OUTSIDE RECORDS SUMMARY | 2025-07-15 16:20 | XMS_ITS | Clinical Summary ---
Author Organization [facility] Address [address] [place] [address] Care Team Providers Care Steward/Stewardess Smoke Room Name Role Phone Elke Patel RN Unavailable [phone] Graciela Gonzales MD Unavailable Juani Traylor MD Primary Care Pro vider Allergies Active Allergy Reactions Criticality Noted Date Comments Cannabidiol (Cbd) Nausea And Vomiting Low Codeine Nausea And Vomiting High 03/02/2013 Other Reaction(s): ADR-Vomiting Latex Anaphylaxis,Rash High 11/15/2024 Marijuana (Cannabis) Nausea And Vomiting High 2024 Morphine Nausea And Vomiting High 01/29/2012 Other Reaction(s): ADR-Vomiting Propoxyphene Other (See comments) High 09/13/2023 Other Reaction(s): ADR-Vomiting Propoxyphene N-Acetaminophen Other (See comments) Low 01/29/2012 Syncope and memory loss Venom-Honey Bee Nausea And Vomiting High 09/13/2023 Other Reaction(s): ALGY-Redness of Skin Medications amLODIPine (NORVASC) 10 mg tablet Take 1 tablet (10 mg total) by mouth daily Active atorvastatin (LIPITOR) 40 mg tablet TAKE 1 TABLET BY MOUTH ONCE DAILY AT 5PM Active RenaPlex-D 800 mcg-12.5 mg -2,000 unit tablet Take by mouth 09/25/20 24 Active FreeStyle [place] 3 [place] misc as directed 10/08/20 24 Active FreeStyle Palak 3 Plus Sensor device 11/13/19 25 Active calcitRIOL (ROCALTROL) 0.25 mcg capsule Take 1 capsule (0.25 mcg total) by mouth daily 11/06/19 25 Active carvediloL (COREG) 25 mg tablet Take 1 tablet (25 mg total) by mouth 2 times daily 10/01/20 24 Active cetirizine (ZyrTEC) 10 mg tablet Take 1 tablet (10 mg total) by mouth daily Active diclofenac DR (VOLTAREN) 75 mg EC tablet Take 1 tablet (75 mg total) by mouth 2 (two) times a day Active DULoxetine DR (CYMBALTA) 60 mg capsule Take 1 capsule (60 mg total) by mouth daily Active docusate sodium (Colace Clear) 50 mg capsule Take 1 capsule (50 mg total) by mouth daily 08/26/20 24 Active famotidine-Ca carb-mag hydrox (PEPCID COMPLETE) 10-800-165 mg chewable tablet Take 1 tablet by mouth 09/25/20 24 Active gentamicin (GARAMYCIN) 0.1 % cream APPLY TO PD (PERITONEAL DIALYSIS) SITE ONCE A DAY ( APPLY AFTER CLEANING SITE ) 10/18/19 25 Active hydrALAZINE (APRESOLINE) 50 mg tablet Take 1 tablet (50 mg total) by mouth 3 times daily 06/01/20 24 Active HYDROcodone-acet aminophen (NORCO) 5-325 mg per tablet Take 1 tablet by mouth every 4 (four) hours as needed 08/30/20 24 Active HumuLIN R U-500 500 unit/mL (3 mL) CONCENTRATED pen for injection INJECT 40 UNITS SUBCUTANEOUSLY WITH BREAKFAST, 100 UNITS SUBCUTANEOUSLY WITH LUNCH AND 100 UNITS SUBCUTANEOUSLY WITH SUPPER Active isosorbide mononitrate ER (IMDUR) 30 mg 24 hr tablet Take 1 tablet (30 mg total) by mouth daily Active lisinopriL (PRINIVIL,ZESTRI L) 40 mg tablet Take 1 tablet (40 mg total) by mouth daily 09/25/20 24 Active methoxy peg-epoetin beta (MIRCERA INJ) Inject 50 mcg under the skin 11/07/19 25 Active omeprazole magnesium 20 mg capsule,delayed release(DR/EC) Take 1 capsule by mouth daily 09/25/20 24 Active sevelamer (RENVELA) 800 mg tablet 1 tablet (800 mg total) 3 times daily 11/06/19 25 026 Active torsemide (DEMADEX) 100 mg tablet Take 1 tablet (100 mg total) by mouth daily 11/07/19 25 Active Active Problems Problem Noted Date Diagnosed Date End stage renal disease 11/15/2024 Encounters Date Type Department Care Team Description 04/18/2025 Telephone [facility] [address] Mailstop [phone] [place] [address] Elke Patel RN from Last 3 Months Immunizations Immunization Administration Dates Next Due Hep B Vaccine 04/18/2024 Influenza, Quadrivalent, Rec ombinant, Egg Free, Preservative Free, Intramuscular 12/05/2019 Pneumococcal Conjugate Pcv20 05/18/2024 Surgical History Surgery Date Site/Laterality Comments US GUIDED THORACENTESIS 04/30/2025 N/A Social History Tobacco Use Types Packs/Day Years Used Date Smoking Tobacco: Never Smokeless Tobacco: Never [facility] Utilities Answer Date Recorded In the past 12 months has [employer] electric, gas, oil, or water company threatened to shut off services in your home? No 12/02/2024 Social Connection and Isolation Panel Answer Date Recorded In a typical week, how many times do you talk on the phone with family, friends, or neighbors? More than three times a week 12/02/2024 How often do you get togethe r with friends or relatives? Three times a week 12/02/2024 How often do you attend chur ch or buddhism services? Patient declined 12/02/2024 Do you belong to any clubs o r organizations such as mormon groups, unions, fraternal or athletic groups, or school groups? No 12/02/2024 How often do you attend meet ings of the clubs or organizations you belong to? Never 12/02/2024 Are you , , di vorced, , never , or living with a partner? 12/02/2024 Overall Financial Resource Strain (CARDIA) Answe r Date Recorded How hard is it for you to pa y for the very basics like food, housing, medical care, and heating? Not very hard 12/02/2024 Hunger Vital Sign Answer Date Recorded Within the past 12 months, y ou worried that your food would run out before you got the money to buy more. Never true 12/02/19 25 Within the past 12 months, t he food you bought just didn't last and you didn't have money to get more. Never true 12/02/2024 PRAPARE - Transportation Answer Date Re corded In the past 12 months, has l ack of transportation kept you from medical appointments or from getting medications? No 11/17 In the past 12 months, has l ack of transportation kept you from meetings, work, or from getting things needed for daily living? No 12/02/2024 Housing Stability Vital Sign Answer [place] Recorded In the last 12 months, was t here a time when you were not able to pay the mortgage or rent on time? No 12/02/2024 In the past 12 months, how m any times have you moved where you were living? 0 12/02/2024 At any time in the past 12 m [facility], were you homeless or living in a [facility] (including now)? No 12/02/2024 Personal Safety Answer Date Recorded Have you ever been in or are you currently in a harmful physical or emotional relationship or is someone making you feel afraid or unsafe? Denies 11/15/2024 Comments Unknown Sex and Gender Information Value Date Recorded Sex Assigned at Not on file Legal Sex Female 12:46 PM CDT Gender Identity Not on file Sexual Orientation Not on file Obstetrics History Last Filed Vital Signs Vital Sign Reading Time Taken Comments Blood Pressure 160/83 11/15/2024 12:40 PM REGENERATOR OPERATOR Pulse 89 11/15/2024 12:40 PM REGENERATOR OPERATOR Temperature 36.4 C (97.5 F) 11/15/2024 12:40 PM REGENERATOR OPERATOR Respiratory Rate - - Oxygen Saturation - - Inhaled Oxygen Concentration - - Weight 100.2 kg (221 lb) 11/15/2024 12:40 PM REGENERATOR OPERATOR Height 162.6 cm (5' 4 ) 11/15/2024 12:40 PM REGENERATOR OPERATOR Body Mass Index 37.93 11/15/2024 12:40 PM REGENERATOR OPERATOR Plan of Treatment Health Maintenance Due Date Last Done Comments Breast Cancer Screening-Mammogram 1970 Cervical Cancer Screening 1970 Colon Cancer Screening-Colonoscopy 1970 Depression Screening 1970 Regular Well Visit/Exam 18-64 1988 Zoster Vaccine (1 of 2) 2020 Influenza Vaccine (#1) 2025 4, 12/05/2019, 06/25/2016, Additional history exists DTaP/Tdap/Td Vaccine (2 - Td or Tdap) 12/05/2029 12/05/2019 Pneumococcal vaccine <65 Aged Out 05/18/2024, 11/17 No longer eligible based on patient's age to complete this topic Hepatitis B Screening Completed 11/15/2024 , 09/19/2024, 08/22/2024, Additional history exists Hepatitis C Screening Completed 11/15/2024 Procedures Procedure Name Priority Date/Time Associated Diagnosis Comments HEPATITIS C ANTIBODY Routine 11/15/2024 2:39 PM REGENERATOR OPERATOR End stage renal disease (HCC) from Last 3 Months or Most Recently Relevant to Health Maintenance Results * Hepatitis C antibody Blood (11/15/2024 2:39 PM REGENERATOR OPERATOR) Hep C Ab Nonreactive Nonreactive Comment:Antibodies to HCV no t detected. Does NOT exclude the possibility of recent exposure to HCV. Current interpretive data was last revised on 22 Blood 11/15/2024 2:39 PM REGENERATOR OPERATOR 11/15/2024 3:15 PM REGENERATOR OPERATOR N[facility]ative [facility] - 11/15/2024 4:03 PM REGENERATOR OPERATOR This lab is being obtained as part of a Kidney transplant evaluation, is time sensitive, and should only be drawn during the evaluation visit at [facility]. us Juani Hoyos MD LAB MICROBIOLOGY - GENERAL ORDERABLES Final Result [facility] [place] [address] from Last 3 Months or Most Recently Relevant to Health Maintenance Insurance [place] [employer] [facility] DUAL COMPLETE [id number] TRANSPLANT [employer] MEDICARE RISK [place] [employer] [facility] DUAL COMPLETE [id number] [facility] Address: [address] [place] [address] [place] [employer] TRANSPLANT [employer] MED[employer] RISK TRANSPLANT [employer] MED[employer] RISK [place] [employer] Care Teams Steward/Stewardess Smoke Room Relationship Specialty Start Date End Date Juani Traylor MD [address] [facility] [address] [place] [address] PCP - General Transplant 11/15/24 Elke Patel, RN [address] [facility] [address] [place], [place] [id number] Curatorial Assistant 07/25/24 Graciela Gonzales MD [address] [facility] [place] [address] Nephrology 07/25/24
--- OUTSIDE RECORDS SUMMARY | 2025-07-15 16:20 | XMS_ITS | Clinical Summary ---
Author Organization [facility] Facility Address [address] [address] Care Team Providers Care Mexican Food Maker Name Role Phone Joellen Hill NP Primary Care Provider [phone] Allergies Active Allergy Reactions Criticality Noted Date Comments Bee Venom High 09/13/2023 Other Reaction(s): ALGY-Redness of Skin Codeine Nausea And Vomiting High 03/02/2013 Other Reaction(s): ADR-Vomiting Latex Rash High 03/02/2013 Other Reaction(s): ALGY-Rash Morphine Nausea And Vomiting High 01/29/2012 Other Reaction(s): ADR-Vomiting Propoxyphene High 09/13/2023 Other Reaction(s): ADR-Vomiting Medications atorvastatin (LIPITOR) 40 MG tablet 40 mg 09/28/20 23 Active Cholecalciferol (Vitamin D) 50 MCG (1999) capsule 2,000 Units 11/26/19 20 Active insulin regular (HumuLIN R) 500 UNIT/ML CONCENTRATED injection .COMPLEX 05/09/20 23 Active lisinopril 20 MG tablet Take 40 mg by mouth 1 (one) time each day 07/29/20 23 Active aspirin (ST GORDON) 81 MG EC tablet Take 81 mg by mouth in the morning. Active clopidogrel (PLAVIX) 75 MG tablet Take 75 mg by mouth in the morning. Active famotidine-calci um carb-mag hydroxide (PEPCID COMPLETE) 10-800-165 MG chewable tablet Chew 1 tablet 09/25/20 24 Active hydrALAZINE 100 MG tablet Take 100 mg by mouth in the morning and 100 mg in the evening and 100 mg before bedtime. 05/04/20 25 Active Multiple Vitamins-Mineral s (RenaPlex) tablet Take by mouth Active NIFEdipine CC (ADALAT CC) 60 MG 24 hr tablet Take 60 mg by mouth in the morning. Active sevelamer carbonate (RENVELA) 800 MG tablet Take 800 mg by mouth in the morning and 800 mg at noon and 800 mg in the evening. Take with meals. 11/06/19 25 Active calcitriol (ROCALTROL) 0.25 MCG capsule Take 0.25 mcg by mouth 1 (one) time each day Active sodium bicarbonate 650 MG tablet Take 650 mg by mouth in the morning and 650 mg in the evening. Active torsemide (DEMADEX) 100 MG tablet Take 100 mg by mouth 1 (one) time each day Active cefdinir (OMNICEF) 300 MG capsule Take 300 mg by mouth in the morning and 300 mg in the evening. Active DULoxetine (CYMBALTA) [address] capsule Take 30 mg by mouth 1 (one) time each day Do not crush or chew. Active gentamicin (GARAMYCIN) 0.1 % cream Apply topically in the morning and in the evening and before bedtime. Active ondansetron (ZOFRAN) 4 MG tablet Take 4 mg by mouth every 8 (eight) hours if needed for nausea or vomiting Active carvedilol (COREG) 12.5 MG tablet Take 12.5 mg by mouth in the morning and 12.5 mg in the evening. Take with meals. Active famotidine (PEPCID) 10 MG tablet Take 1 tablet by mouth 1 (one) time each day 025 Discontinued isosorbide mononitrate (IMDUR) 30 MG 24 hr tablet Take 30 mg by mouth in the morning. 04/09/20 24 025 Discontinued omeprazole (PriLOSEC) [address] capsule Take 20 mg by mouth in the morning. 025 Discontinued Encounters Date Type Department Care Team Description 07/09/2025 TCM in Dialysis Clinic [address] [place] [address] [facility] [address] [facility] [address] [place] [id number] Graciela Gonzales MD 07/03/2025 Telephone [facility] [address] [place] [id number] Graciela Gonzales MD 06/24/[address] [place] [address] [facility] [address] [place] [address] Graciela Gonzales MD End stage renal disease; Dependence on renal dialysis 06/19/2025 [facility], [facility] [address] [place] [address] Graciela Gonzales MD 06/05/2025 Treatment [facility], [facility] [address] [place] [address] Graciela Gonzales MD End stage renal disease; Dependence on renal dialysis 05/22/2025 [facility], [facility] [address] [place] [address] Graciela Gonzales MD 05/07/[address] [facility], [facility] [address] [place] [address] Graciela Gonzales MD 05/07/2025 Treatment [facility], [facility] [address] [place] [address] Graciela Gonzales MD End stage renal disease; Dependence on renal dialysis 05/06/[address] [facility], [facility] [address] [place] [address] Tammy Kendall 05/06/[address] [facility], [facility] [address] [place] [address] Graciela Gonzales MD 04/16/2025 Orders Only [facility], [facility] [address] [place] [address] Graciela Gonzales MD from Last 3 Months Family History Medical History Relation Comments Hypertension Brother Coronary artery disease Father Hyperlipidemia Father Diabetes Mother Hypertension Mother Thyroid disease Mother Relation Status Comments Brother Father Mother Social History Tobacco Use Types Packs/Day Years Used Date Smoking Tobacco: Never Smokeless Tobacco: Never Tobacco Cessation:Counseling Given: Not Answered Alcohol Use Standard Drinks/Week Comments Never 0 (1 standard drink = 0.6 oz pur e alcohol) Comments Unknown Sex and Gender Information Value Date Recorded Sex Assigned at Not on file Legal Sex Female 9:22 AM EST Gender Identity Not on file Sexual Orientation Not on file Plan of Treatment Health Maintenance Due Date Last Done Comments Breast Cancer Screening 1970 Pneumococcal Vaccine: 50+ Ye ars (1 of 2 - PCV) 1989 Hepatitis B Vaccine (1 of 5 - Risk Dialysis 4-dose series) 1990 04/18/2024 Colorectal Cancer Screening: Annual FOBT 2019 Colorectal Cancer Screening: Colonoscopy 2019 Colorectal Cancer Screening: Sigmoidoscopy 2019 Diabetes: Ophthalmology Exam 09/15/2023 Diabetes: Pedal Pulse Checked 09/15/2023 Diabetes: Sensory Foot Exam 09/15/2023 Diabetes: Visual Foot Exam 09/15/2023 Influenza Vaccine (#1) 2025 12/05/2019 Diabetes: Hemoglobin A1C 07/31/2025 025, 04/29/2025, 04/16/2025, Additional history exists Procedures Procedure Name Priority Date/Time Associated Diagnosis Comments URINE CLEARANCE Routine 06/19/2025 PD ADEQUACY Routine 06/19/2025 PDF CHEMISTRY Routine 06/19/2025 PD ADEQUACY Routine 06/19/2025 CHEMISTRY Routine 06/19/2025 IMMUNO CHEMISTRY Routine 06/19/2025 HEMATOLOGY Routine 06/19/2025 PATIENT INFORMATION Routine 06/19/2025 PATIENT INFORMATION Routine 06/19/2025 PATIENT INFORMATION Routine 06/19/2025 CHEMISTRY Routine 05/22/2025 IMMUNO CHEMISTRY Routine 05/22/2025 HEMATOLOGY Routine 05/22/2025 CHEMISTRY Routine 05/07/2025 HEMATOLOGY Routine 05/07/2025 SPECIAL CHEMISTRY Routine 04/16/2025 HEMATOLOGY Routine 04/16/2025 CHEMISTRY Routine 04/16/2025 IMMUNO CHEMISTRY Routine 04/16/2025 CHEMISTRY Routine 04/16/2025 from Last 3 Months Results * (ABNORMAL) URINE CLEARANCE (06/19/2025) Urea Nitrogen, Urine Timed 252 mg/dL [facility] Urea Nitrogen, Urine 24 Hr 0.5(L) 12.0 - 20.0 g/24 hr [facility] Urea Clear, Urine Norm 0.7(L) 64.0 - 99.0 mL/min [facility] Urea Clearance, Urine 0.6(L) 64.0 - 99.0 mL/min [facility] Urea Clear, Urine Norm Wkly 6 L/wk [facility] Creatinine, Urine Timed 73.6 mg/dL [facility] Creatinine, 24H Ur 0.1(L) 0.5 - 1.6 g/24 hr [facility] Creatinine Clear, Urine 1.0 mL/min [facility] Creat Clear, Urine Norm 1.0(L) 77.0 - 94.0 mL/min [facility] Creat Clear, Urine Wkly 10.1 L/wk [facility] 06/19/2025 06/20/2025 2:3 8 PM CDT Narrative Resulting Agency Comment Specimen source: Urine us Graciela Gonzales MD LAB URINE ORDERABLES Final Re sult [facility] See order comments or contact performing lab Unknown, [place] * PDF CHEMISTRY (06/19/2025) Urea Nitrogen, PDF 24 Hr 4,598.0 mg/24 hr [facility] Urea Nitrogen, PDF Timed 38 mg/dL [facility] Urea Clearance, PD Fluid 6.5 mL/min [facility] Urea Clearance, PDF Norm 6.8 mL/min [facility] Urea Clear, PDF Norm Wkly 66 L/wk [facility] Creatinine, PDF Timed Uncor 3.5 mg/dL [facility] Creatinine, PDF Timed Cor 3.3 mg/dL [facility] Comment: Creatinine values have been corrected for glucose interference. [facility] glucose correction factor for creatinine is 0.0002. Creatinine, PDF 24 Hr 399.3 mg/24 hr [facility] Creatinine Clear, PDF 3.0 mL/min [facility] Creatinine Clear, PDF Norm 3.1 mL/min [facility] Creat Clear, PDF Norm Wkly 30 L/wk [facility] Glucose, PDF Timed 1,142 mg/dL [facility] Urea Clear, Tot Norm Wkly 72 L/wk [facility] Creat Clear, Tot Wkly 40 L/wk [facility] 06/19/2025 06/20/2025 2:3 7 PM CDT Narrative Resulting Agency Comment Specimen source: PD Fluid us Graciela Gonzales MD LAB BODY FLUIDS AND STOOLS OR DERABLES Edited Result - Final [facility] See order comments or contact performing lab Unknown, [place] * PD ADEQUACY (06/19/2025) Only the most recent of2 resultswithin the time period is included. Kt/V, Residual 0.19 [facility] Creat Clear, Urine Nor Wkly 10 L/wk [facility] 06/19/2025 06/20/2025 2:3 8 PM CDT Narrative [facility] - 06/21/2025 Unless otherwise specified, test(s) performed at: [facility], [address] [place], [place] [id number] MERCHANDISE HANDLER: Christiano Magallon M.D. For any questions, please call customer service at FREQUENCY:MONTHLY Resulting Agency Comment Specimen source: Urine us Graciela Gonzales MD LAB BODY FLUIDS AND STOOLS OR DERABLES Final Result Performing Organization Address City/State/[facility] Co de Phone Number [facility] See order comments or contact performing lab Unknown, [place] * IMMUNO CHEMISTRY (06/19/2025) Only the most recent of3 resultswithin the time period is included. Pathologist [facility] Hep B Surface Ag Negative Negative [facility] 06/19/2025 06/20/2025 3:3 4 PM CDT Narrative [facility] - 06/20/2025 Unless otherwise specified, test(s) performed at: [facility], [address] [place] [id number] MERCHANDISE HANDLER: Christiano Magallon M.D. For any questions, please call customer service at FREQUENCY:MONTHLY Resulting Agency Comment Specimen source: Serum us Graciela Gonzales MD LAB BLOOD ORDERABLES Final Re sult Performing Organization Address [facility] de Phone Number [facility] See order comments or contact performing lab Unknown, [place] * PATIENT INFORMATION (06/19/2025) Only the most recent of3 resultswithin the time period is included. Pathologist [facility] Patient BSA 1.67 sq. M. [facility] Comment: Normalized values are calculated using the patient's actual BSA and normalized to the average BSA of 1.73m2. 06/19/2025 06/20/2025 3:3 4 PM CDT Narrative [facility] - 06/20/2025 Unless otherwise specified, test(s) performed at: [facility], [address] [place] [id number] MERCHANDISE HANDLER: Christiano Magallon M.D. For any questions, please call customer service at FREQUENCY:MONTHLY Resulting Agency Comment Specimen source: PD Fluid us Graciela Gonzales MD LAB BLOOD ORDERABLES Final Re sult Performing Organization Address [facility] Co de Phone Number [facility] See order comments or contact performing lab Unknown, [place] * (ABNORMAL) HEMATOLOGY (06/19/2025) Only the most recent of4 resultswithin the time period is included. Neutrophils 69.9 40.0 - 75.0 % [facility] Lymphocytes Relative 18.1(L) 19.0 - 48.0 % [facility] Monocytes 4.3 3.0 - 10.0 % [facility] Eosinophils Relative 4.4 0.0 - 7.0 % [facility] Basophils Relative 0.9 0.0 - 1.5 % [facility] VIPUL 2.3 0.0 - 4.0 % [facility] WBC 8.81 4.80 - 10.80 1000/mcL [facility] RBC 4.51 4.20 - 5.40 mill/mcL [facility] Hematocrit 39.5 37.0 - 47.0 % [facility] MCV 88 80 - 100 fl [facility] MCH 26.7(L) 27.0 - 31.0 pg [facility] MCHC 30.5 30.0 - 36.0 g/dL [facility] RDW 15.2(H) 11.5 - 14.5 % [facility] Hemoglobin 12.0 12.0 - 16.0 g/dL [facility] Hemoglobin x 3 36 36.0 - 48.0 % [facility] Platelets 431(H) 130 - 400 1000/mcL [facility] Retic Ct Pct 0.71(L) 0.80 - 2.10 % [facility] Reticulocyte Hemoglobin 30.7 25.4 - 31.8 pg [facility] 06/19/2025 06/20/2025 12: 53 PM CDT Narrative [facility] - 06/20/2025 Unless otherwise specified, test(s) performed at: [facility], [address] [place] [id number] MERCHANDISE HANDLER: Christiano Magallon M.D. For any questions, please call customer service at FREQUENCY:MONTHLY Resulting Agency Comment Specimen source: Blood us Graciela Gonzales MD LAB BLOOD ORDERABLES Final Re sult [facility] See order comments or contact performing lab Unknown, [place] * (ABNORMAL) [facility] Chemistry (06/19/2025) Only the most recent of5 resultswithin the time period is included. BUN 49(H) 6 - 19 mg/dL [facility] Creatinine 9.32(H) 0.60 - 1.30 mg/dL [facility] BUN/Creatinine Ratio 5.3(L) 10.0 - 20.0 [facility] Sodium 143 136 - 145 mEq/L [facility] Potassium 3.5 3.5 - 5.1 mEq/L [facility] Chloride 97 96 - 108 mEq/L [facility] Bicarbonate (CO2) 23 22 - 29 mEq/L [facility] Calcium 7.7(L) 8.4 - 10.2 mg/dL [facility] Corrected Calcium 8.3(L) 8.4 - 10.2 mg/dL [facility] Comment: Corrected Calcium is not equivalent to measured Ionized Calcium. Phosphorus 10.4(H) 2.6 - 4.5 mg/dL [facility] Calcium Phosphorus Product 80(H) 0 - 54 [facility] Calcium Phosporus Product, Cor 86(H) 0 - 54 [facility] Total Protein 6.1 6.0 - 8.5 g/dL [facility] Albumin 3.2(L) 3.5 - 5.2 g/dL [facility] Globulin, Total 2.9 2.0 - 4.0 g/dL [facility] A/G Ratio 1.1 1.0 - 2.0 [facility] Glucose 121(H) 70 - 100 mg/dL [facility] Iron 51 30 - 160 mcg/dL [facility] UIBC 113(L) 155 - 355 mcg/dL [facility] TIBC 164(L) 185 - 515 mcg/dL [facility] Iron Saturation (TSat) 31 20 - 55 % [facility] 06/19/2025 06/20/2025 3:3 4 PM CDT Narrative [facility] - 06/20/2025 Unless otherwise specified, test(s) performed at: [facility], [address] [place], [place] [id number] MERCHANDISE HANDLER: Christiano Magallon M.D. For any questions, please call customer service at FREQUENCY:MONTHLY Resulting Agency Comment Specimen source: Serum us Graciela Gonzales MD LAB BLOOD ORDERABLES Final Re sult [facility] See order comments or contact performing lab Unknown, [place] * SPECIAL CHEMISTRY (04/16/2025) Hemoglobin A1C 5.0 4.8 - 5.9 % [facility] 04/16/2025 04/18/2025 12: 44 PM CDT Narrative [facility] - 04/20/2025 Unless otherwise specified, test(s) performed at: [facility], [address] [place] [id number] MERCHANDISE HANDLER: Christiano Magallon M.D. For any questions, please call customer service at FREQUENCY:MONTHLY Resulting Agency Comment Specimen source: Blood us Graciela Gonzales MD LAB BLOOD BANK TEST ORDERABLE S Final Result [facility] See order comments or contact performing lab Unknown, [place] from Last 3 Months Insurance Dual Complete Choice [place] ([id number]) Care Teams Mexican Food Maker Relationship Specialty Start Date End Date Joellen Hill NP [address] [place] [address] PCP - General Family Medicine 09/15/23
--- OUTSIDE RECORDS SUMMARY | 2025-07-15 16:20 | XMS_ITS | Encounter Summary ---
Author Organization [facility], [facility] Address [address] [place] [address] Phone Care Team Providers Care Manufacturing Quality Manager Name Role Phone Joellen Hill NP Primary Care Provider [phone] Encounter Details Date Type Department Care Team (Late st Contact Info) Description 09/15/2023 Orders Only [facility] [address] [place] [address] Type 2 diabetes mellitus with diabetic chronic kidney disease (HCC); Chronic kidney disease, stage 4 (severe) (HCC) Social History Tobacco Use Types Packs/Day Years Used Date Smoking Tobacco: Never Assessed Comments Unknown Sex and Gender Information Value Date Recorded Sex Assigned at Not on file Legal Sex Female 9:22 AM EST Gender Identity Not on file Sexual Orientation Not on file documented as of this encounter Plan of Treatment Not on file documented as of this encounter Visit Diagnoses Diagnosis Type 2 diabetes mellitus with diabetic chronic kidney disease (HCC) Chronic kidney disease, stage 4 (severe) (HCC) documented in this encounter Care Teams Manufacturing Quality Manager Relationship Specialty Start Date End Date Joellen Hill NP [address] [place] [address] PCP - General Family Medicine 09/15/23 documented as of this encounter
--- NOTE | 2025-07-15 16:37 | W.ED.SOB ---
HPI - SOB/Dyspnea General: Chief Complaint: Shortness of Breath/Dyspnea Stated Complaint: SOB Time Seen by Provider: 07/15/25 16:16 History of Present Illness: HPI Narrative: 54-year-old female with a history of end-stage renal disease on peritoneal dialysis, recent large pleural effusion drainage with pleurodesis and a PleurX catheter placement with which she was sent home with, peripheral arterial disease, hypertension, type 2 diabetes, anemia of chronic disease, diabetic neuropathy, diabetic retinopathy, depression, chronic pain syndrome and anxiety who presents to the emergency room with shortness of breath. Related Data Home Medications ?Medication ?Instructions ?Recorded ?Confirmed omeprazole 20 mg capsule,delayed 20 mg PO DAILY 04/06/24 06/26/25 release cetirizine 10 mg tablet 10 mg PO DAILY PRN Allergy Symptoms 05/23/24 06/26/25 calcitriol 0.25 mcg capsule 0.25 mcg PO DAILY 10/30/24 06/26/25 vit B,C-folic ac 800 mcg-zinc 12.5 1 tab PO DAILY 10/30/24 06/26/25 mg-selen-D3 2,000 unit-vit E tablet (RenaPlex-D) sevelamer carbonate 800 mg tablet 800 mg PO TID 12/07/24 06/26/25 torsemide 100 mg tablet 100 mg PO DAILY 12/07/24 06/26/25 nifedipine 60 mg tablet,extended 60 mg PO DAILY 03/20/25 06/26/25 release sodium bicarbonate 650 mg tablet 650 mg PO BID 04/16/25 06/26/25 atorvastatin 40 mg tablet 40 mg PO DAILY 06/26/25 06/26/25 hydralazine 50 mg tablet 100 mg PO TID 06/26/25 06/26/25 lisinopril 40 mg tablet 40 mg PO DAILY 06/26/25 06/26/25 albuterol sulfate 90 mcg/actuation 1 puff inhalation BID PRN 06/28/25 06/28/25 aerosol inhaler Shortness Of Breath Or Wheezing gentamicin 0.1 % topical cream See Rx Instructions .Route .COMPLEX 06/28/25 06/28/25 ondansetron 4 mg disintegrating 4 mg PO Q6H PRN Nausea And Vomiting 06/28/25 06/28/25 tablet Previous Rx's ?Medication ?Instructions ?Recorded blood-glucose sensor (FreeStyle #2 ea 02/12/25 Palak 3 Plus Sensor device) aspirin 81 mg capsule 81 mg PO DAILY #90 caps 02/18/25 clopidogrel 75 mg tablet 75 mg PO DAILY #90 tabs 02/18/25 duloxetine 30 mg capsule,delayed 30 mg PO .q am #30 caps 04/16/25 release diabetic shoes with 3 inserts #1 ea 04/18/25 carvedilol 25 mg tablet 12.5 mg (1/2 x 25 mg) PO BID 30 07/01/25 days #30 tabs insulin aspart U-100 100 unit/mL See Rx Instructions .Route 07/12/25 (3 mL) subcutaneous pen (Novolog .COMPLEX #15 mL FlexPen U-100 Insulin aspart) Allergies Allergy/AdvReac Type Severity Reaction Status Date / Time venom-honey bee Allergy Severe ALGY-Redness Verified 07/15/25 16:28 of Skin marijuana (cannabis) Allergy Intermediate ADR-Nausea Verified 07/15/25 16:28 codeine AdvReac Severe ADR-Vomitin Verified 07/15/25 16:28 g morphine AdvReac Severe ADR-Vomitin Verified 07/15/25 16:28 g propoxyphene (From AdvReac Severe ADR-Vomitin Verified 07/15/25 16:28 Darvocet-N) g latex AdvReac Intermediate ALGY-Rash Verified 07/15/25 16:28 Review of Systems Narrative: Constitutional symptoms: Negative except as documented in HPI. Skin symptoms: Negative except as documented in HPI. Eye symptoms: Negative except as documented in HPI. ENMT symptoms: Negative except as documented in HPI. Respiratory symptoms: Negative except as documented in HPI. Cardiovascular symptoms: Negative except as documented in HPI. Gastrointestinal symptoms: Negative except as documented in HPI. Genitourinary symptoms: Negative except as documented in HPI. Musculoskeletal symptoms: Negative except as documented in HPI. Neurologic symptoms: Negative except as documented in HPI. Psychiatric symptoms: Negative except as documented in HPI. Endocrine symptoms: Negative except as documented in HPI. PFS ED PFSH: Medical History (Updated 07/15/25 @ 19:53 by Carla Montes MD) Pleural effusion PAD (peripheral artery disease) Essential hypertension Peritoneal dialysis catheter in place Uncontrolled type 2 diabetes mellitus Anemia of chronic disease ESRD (end stage renal disease) Diabetic neuropathy, type II diabetes mellitus Diabetic retinopathy Bereavement Major depressive disorder, recurrent, in partial remission Psychiatric care FH: total knee replacement left HLA B27 (HLA B27 positive) High risk medication use Inflammatory arthritis Seronegative spondyloarthropathy Chronic insomnia See subjective note below. Chronic pain See subjective note below. Chronic post-traumatic stress disorder (PTSD) Generalized anxiety disorder Major depressive disorder, recurrent, moderate Surgical History History of cataract extraction History of hysterectomy for benign disease History of tonsillectomy History of appendectomy History of left knee replacement Family History Mother Hypertension Diabetes Psychiatric illness Thyroid disease Father , in his 50's Family history of premature coronary artery disease Hyperlipidemia Myocardial infarction Brother Hypertension Sister No problems noted. Denies family history of Rheumatoid arthritis Lupus Social History Smoking and tobacco/nicotine status: never used tobacco/nicotine Second hand smoke exposure: No Alcohol intake: never Substance/Drug Use: never Adopted: No Caregiver/support person: No Lives independently: No Household members: family service: No Current occupational status: unemployed and disabled Sexually active: Yes Do you think of yourself as: Straight/Heterosexual Current gender identity: Female Physical Exam Narrative: EXAM NARRATIVE: General: Alert, no acute distress. Skin: Warm, dry. Head: Normocephalic, atraumatic. Neck: Supple, trachea midline. Eye: Extraocular movements are intact. Ears, nose, mouth and throat: mucosa moist. Cardiovascular: Regular, Normal peripheral perfusion. Respiratory: Coarse diminished breath sounds, moderate increased work of breathing, diminished breath sounds at the bases Gastrointestinal: Soft, Nontender, Non distended Musculoskeletal: Normal ROM, no deformity. Neurological: Alert and oriented, No focal neurological deficit observed. Psychiatric: Cooperative, appropriate mood & affect. Course Vital Signs: Vital signs: Vital Signs Temperature 98.2 F 07/15/25 16:21 Pulse Rate 74 07/15/25 18:30 Respiratory Rate 28 H 07/15/25 16:21 Blood Pressure 218/117 07/15/25 18:30 Pulse Oximetry 95 07/15/25 18:30 Oxygen Delivery Me thod Nasal Cannula 07/15/25 16:21 Oxygen Flow Rate 3 07/15/25 16:21 MDM - SOB/Dyspnea Medical Decision Making Differential diagnosis for patient with shortness of breath includes but is not limited to and based on the above HPI, review of systems and physical exam: Pneumonia. Bronchitis. Asthma or COPD with acute exacerbation. Acute coronary syndrome / ND. Pulmonary embolism. Anxiety. Congestive heart failure. Viral infections including influenza and Covid-19. Atrial fibrillation. Anxiety. Pleural effusion. Pneumothorax. Orders placed to evaluate differential diagnosis based on the above differential, HPI and physical exam Chest x-ray: Interval change. Degree of lung [place] was not present on previous CT. This looks like pulmonary edema rather than an accumulation of pleural effusion. This was reviewed and interpreted by myself the emergency room physician. I also reviewed the radiology report. CT of the chest without contrast: This was ordered but patient was too orthopneic to tolerate. Study was not done. This was reviewed and interpreted by myself the emergency room physician. I also reviewed the radiology report. Consultation: I spoke with Dr. Hall with pulmonary. He had taken care of the patient before. He evaluated the patient in the emergency room and says that her drain is working and that he thinks that this is pulmonary edema as well. Lab Review: Laboratory results were reviewed and interpreted by myself the emergency room physician. Leukocytosis. Stable anemia. Renal failure with a BUN and creatinine of 56 and 7.1. Potassium is mildly elevated at 6.1. proBNP is greater than 70,000. I reviewed the patient's medical record. Reexamination: Patient is maintained her oxygen in the low 90s on 3 L nasal cannula. Attempting to have her use of BiPAP. Consultation: I spoke with telemedicine nephrology. They are evaluating and patient likely will need emergent dialysis. Consultation: I spoke with Dr. Shaw who is on-call for the hospitalist service who agrees to admission to the ICU. Assessment and plan: Pulmonary edema Hypoxemic respiratory failure Malignant hypertension End-stage renal disease on dialysis ?BiPAP, 20 mg IV labetalol, 80 mg IV Lasix, Segal catheter placed. Consultation with nephrology and pulmonology. -I discussed the patient with the hospitalist on-call who is admitting the patient. - Discussed findings and plan with patient. Answered any questions. - All laboratory values were reviewed and interpreted personally by myself, the ER physician - All imaging was reviewed and interpreted personally by myself, the ER physician. - Evaluation and treatment of this problem were appropriate in the emergency setting. Critical Care: -I spent a total of >35 minutes of critical care time managing the patient, independent of any other practitioner. -The time involved in the performance of separately reportable procedures was not counted towards critical care time. Lab Data 07/15/25 17:44 07/15/25 17:44 Labs/Radiology: Radiology Impressions Chest X-Ray 07/15/25 16:19 IMPRESSION: Interval change as above. This degree of lung abnormality was not present on the CT scan of the chest 07/11/2025. Presumably this represents pulmonary edema. Laboratory Results WBC 12.91 10^3/uL (3.29-11.43) H 07/15/25 17:44 RBC 3.67 10^6/uL (3.85-5.65) L 07/15/25 17:44 Hgb 9.60 g/dL (11.27-16.99) L 07/15/25 17:44 Hct 31.5 % (36-47) L 07/15/25 17:44 MCV 85.8 fl (85-98) 07/15/25 17:44 MCH 26.2 pg (27-33) L 07/15/25 17:44 MCHC 30.5 g/dL (30-55) 07/15/25 17:44 RDW 15.7 % (12.1-15.1) H 07/15/25 17:44 Plt Count 584 10^3/cmm (157-399) H 07/15/25 17:44 MPV 9.2 fL (7.4-10.4) 07/15/25 17:44 Neut % (Auto) 83.6 % 07/15/25 17:44 Lymph % (Auto) 10.3 % 07/15/25 17:44 Mcminn % (Auto) 4.1 % 07/15/25 17:44 Eos % (Auto) 0.5 % 07/15/25 17:44 Baso % (Auto) 0.8 % 07/15/25 17:44 Neut # (Auto) 10.80 10^3/uL (1.8-7.7) H 07/15/25 17:44 Lymph # (Auto) 1.3 10^3/uL (0.8-4.8) 07/15/25 17:44 Mcminn # (Auto) 0.5 10^3/uL (0.2-0.9) 07/15/25 17:44 Eos # (Auto) 0.1 10^3/uL (0.0-0.8) 07/15/25 17:44 Baso # (Auto) 0.1 10^3/uL (0.0-0.1) 07/15/25 17:44 Nucleated RBC % (auto) 0 % 07/15/25 17:44 Nucleated RBCs # 0.0 /100WBC 07/15/25 17:44 Sodium 139 mmol/L (136-145) 07/15/25 17:44 Potassium 6.1 mmol/L (3.5-5.1) H 07/15/25 17:44 Chloride 98 mmol/L (98-107) 07/15/25 17:44 Carbon Dioxide 21 mmol/L (22-29) L 07/15/25 17:44 Anion Gap 26.1 (5-19) H 07/15/25 17:44 BUN 56 mg/dL (6-20) H 07/15/25 17:44 Creatinine 7.1 mg/dL (0.5-0.9) H* 07/15/25 17:44 GFR Calculation 6.0 mL/min (90-130) L 07/15/25 17:44 Glucose 123 mg/dL (65-115) H 07/15/25 17:44 Calculated Osmolality 305 mOsm/kg (285-295) H 07/15/25 17:44 Lactic Acid 0.9 mmol/L (0.5-2.2) 07/15/25 17:44 Calcium 9.2 mg/dL (8.5-10.5) 07/15/25 17:44 Iron 42 ug/dL (37-145) 07/15/25 17:44 TIBC 155 mcg/dl 07/15/25 17:44 % Saturation 27.0 % (20-50) 07/15/25 17:44 Unsat Iron Binding 113 ug/dL (112-347) 07/15/25 17:44 Ferritin 1752 ng/mL (15-150) H 07/15/25 17:44 Total Bilirubin 0.3 mg/dL (0.15-1.2) 07/15/25 17:44 AST 16 U/L (0-32) 07/15/25 17:44 ALT 8 U/L (0-33) 07/15/25 17:44 Alkaline Phosphatase 85 U/L (35-105) 07/15/25 17:44 C-Reactive Protein 64.7 mg/L (0.0-4.9) H 07/15/25 17:44 NT-Pro-B Natriuret Pep > 98419 pg/mL (0-125) H 07/15/25 17:44 Total Protein 7.9 g/dL (6.6-8.7) 07/15/25 17:44 Albumin 3.3 g/dL (3.5-5.2) L 07/15/25 17:44 Globulin 4.6 g/dL (1.3-4.6) 07/15/25 17:44 Procalcitonin 0.15 ng/mL (0-0.5) 07/15/25 17:44 TSH 7.84 uIU/mL (0.27-4.20) H 07/15/25 17:44 Calcium (PTH Intact) 9.1 mg/dL (8.5-10.5) 07/15/25 17:44 All radiology interpretation(s) finalized by discharge Discharge Plan Discharge Patient Disposition: Admitted As Inpatient Clinical Impression: Pulmonary edema, Malignant hypertension, Acute hypoxemic respiratory failure Condition: Stable Coding Level of Care Code ED Photo Editor for Leanna Lester
[2025-07-15 18:07] LABS: Hematocrit 31.5 % (36-47); Hemoglobin 9.60 g/dL (11.27-16.99); Mean Corpuscular HGB Conc 30.5 g/dL (30-55); Mean Corpuscular Hemoglobin 26.2 pg (27-33); Mean Corpuscular Volume 85.8 fl (85-98); Nucleated Red Blood Cells % 0 %; Platelet Count 584 10^3/cmm (157-399); Red Blood Count 3.67 10^6/uL (3.85-5.65); White Blood Count 12.91 10^3/uL (3.29-11.43)
[2025-07-15] MEDS: FUROsemide 10 mg/mL SDV 10mL 80 MG IVP (18:17)
[2025-07-15] MEDS: labetalol 5 mg/mL SDV 20mL 20 MG IVP ×2 (18:20→21:41)
[2025-07-15 18:24] LABS: Lactic Sepsis W/Reflex 0.9 mmol/L (0.5-2.2)
--- NOTE | 2025-07-15 18:31 | PM.CONSULT ---
Providers/Reason For Consult Consulting Physician/Specialty*: Dr. Chi Parkinson, tele- nephrology. Reason for Consult*: End-stage renal disease Requesting Physician: Dr Montes Attending Physician: Dr Montes and Dr Nitin Garza Primary Care Provider: SEGUN Mulligan History of Present Illness History of Present Illness Lizy Evans is a 54 year old female With recent admission from June 27 through July 02, 2025. At that time she transition from peritoneal dialysis to hemodialysis. She also had a PleurX chest catheter placed. On discharge she went back to peritoneal dialysis. Today she presents with significant shortness of breath her PleurX catheter is not draining and she is not able to remove enough fluids with peritoneal dialysis. Patient has shortness of breath hypertension nausea orthopnea and dyspnea.Patient is being admitted for further care. Patient's history includes ESRD on dialysis, CAD type 2 diabetes now insulin-dependent. Status post PleurX drains. She also has hypertension. Review of Systems Narrative: Shortness of breath volume overload not able to remove much fluid from her PleurX catheter. No other orthopnea dyspnea weakness. Medications/Allergies Home Medications ?Medication ?Instructions ?Recorded ?Confirmed ?Last Taken ?Type omeprazole 20 mg capsule,delayed 20 mg PO DAILY 04/06/24 06/26/25 06/26/25 History release cetirizine 10 mg tablet 10 mg PO DAILY PRN Allergy Symptoms 05/23/24 06/26/25 06/26/25 History calcitriol 0.25 mcg capsule 0.25 mcg PO DAILY 10/30/24 06/26/25 06/26/25 History vit B,C-folic ac 800 mcg-zinc 12.5 1 tab PO DAILY 10/30/24 06/26/25 06/26/25 History mg-selen-D3 2,000 unit-vit E tablet (RenaPlex-D) sevelamer carbonate 800 mg tablet 800 mg PO TID 12/07/24 06/26/25 06/26/25 History torsemide 100 mg tablet 100 mg PO DAILY 12/07/24 06/26/25 06/26/25 History blood-glucose sensor (FreeStyle #2 ea 02/12/25 06/28/25 Unknown Rx Palak 3 Plus Sensor device) aspirin 81 mg capsule 81 mg PO DAILY #90 caps 02/18/25 06/26/25 06/26/25 Rx clopidogrel 75 mg tablet 75 mg PO DAILY #90 tabs 02/18/25 06/26/25 06/21/25 Rx nifedipine 60 mg tablet,extended 60 mg PO DAILY 03/20/25 06/26/25 06/26/25 History release duloxetine 30 mg capsule,delayed 30 mg PO .q am #30 caps 04/16/25 06/26/25 06/26/25 Rx release sodium bicarbonate 650 mg tablet 650 mg PO BID 04/16/25 06/26/25 06/26/25 History diabetic shoes with 3 inserts #1 ea 04/18/25 06/28/25 Unknown Rx atorvastatin 40 mg tablet 40 mg PO DAILY 06/26/25 06/26/25 06/26/25 History hydralazine 50 mg tablet 100 mg PO TID 06/26/25 06/26/25 06/26/25 History lisinopril 40 mg tablet 40 mg PO DAILY 06/26/25 06/26/25 06/25/25 History albuterol sulfate 90 mcg/actuation 1 puff inhalation BID PRN 06/28/25 06/28/25 Unknown History aerosol inhaler Shortness Of Breath Or Wheezing gentamicin 0.1 % topical cream See Rx Instructions .Route .COMPLEX 06/28/25 06/28/25 Unknown History ondansetron 4 mg disintegrating 4 mg PO Q6H PRN Nausea And Vomiting 06/28/25 06/28/25 Unknown History tablet carvedilol 25 mg tablet 12.5 mg (1/2 x 25 mg) PO BID 30 07/01/25 06/28/25 Unknown Rx days #30 tabs insulin aspart U-100 100 unit/mL See Rx Instructions .Route 07/12/25 Unknown Rx (3 mL) subcutaneous pen (Novolog .COMPLEX #15 mL FlexPen U-100 Insulin aspart) Allergies Allergy/AdvReac Type Severity Reaction Status Date / Time venom-honey bee Allergy Severe ALGY-Redness Verified 07/15/25 16:28 of Skin marijuana (cannabis) Allergy Intermediate ADR-Nausea Verified 07/15/25 16:28 codeine AdvReac Severe ADR-Vomitin Verified 07/15/25 16:28 g morphine AdvReac Severe ADR-Vomitin Verified 07/15/25 16:28 g propoxyphene (From AdvReac Severe ADR-Vomitin Verified 07/15/25 16:28 Darvocet-N) g latex AdvReac Intermediate ALGY-Rash Verified 07/15/25 16:28 PFSH Acute PFSH: Medical History Pleural effusion PAD (peripheral artery disease) Essential hypertension Peritoneal dialysis catheter in place Uncontrolled type 2 diabetes mellitus Anemia of chronic disease ESRD (end stage renal disease) Diabetic neuropathy, type II diabetes mellitus Diabetic retinopathy Bereavement Major depressive disorder, recurrent, in partial remission Psychiatric care FH: total knee replacement left HLA B27 (HLA B27 positive) High risk medication use Inflammatory arthritis Seronegative spondyloarthropathy Chronic insomnia See subjective note below. Chronic pain See subjective note below. Chronic post-traumatic stress disorder (PTSD) Generalized anxiety disorder Major depressive disorder, recurrent, moderate Surgical History History of cataract extraction History of hysterectomy for benign disease History of tonsillectomy History of appendectomy History of left knee replacement Family History Mother Hypertension Diabetes Psychiatric illness Thyroid disease Father , in his 50's Family history of premature coronary artery disease Hyperlipidemia Myocardial infarction Brother Hypertension Sister No problems noted. Denies family history of Rheumatoid arthritis Lupus Social History Smoking and tobacco/nicotine status: never used tobacco/nicotine Second hand smoke exposure: No Alcohol intake: never Substance/Drug Use: never Adopted: No Caregiver/support person: No Lives independently: No Household members: family service: No Current occupational status: unemployed and disabled Sexually active: Yes Do you think of yourself as: Straight/Heterosexual Current gender identity: Female Vitals/I&O/Wt Last Vital Signs Temp 98.2 F 07/15/25 16:21 Pulse 79 07/15/25 16:21 Resp 28 H 07/15/25 16:21 BP 226/110 07/15/25 16:21 Pulse Ox 94 07/15/25 16:21 O2 Del Method Nasal Cannula 07/15/25 16:21 O2 Flow Rate 3 07/15/25 16:21 Weight last 48 hrs Weight 188 g Physical Exam Narrative: Patient sitting up uncomfortable blood pressure elevated. Using nasal cannula oxygen. HEENT normocephalic atraumatic neck is supple positive JVP Right sided permacath lungs have dull bases. Right PleurX catheter. Heart positive S1-S2. Abdomen is soft positive bowel sounds positive left-sided peritoneal dialysis catheter. Extremities 1+ edema. Neuro awake and alert oriented x 3. Data 07/15/25 17:44 07/15/25 17:44 Micro: Microbiology 07/15/25 17:44 Blood Culture - Preliminary Blood SPECIMEN COLLECTED 07/15/25 17:44 Blood Culture - Preliminary Blood SPECIMEN COLLECTED A&P Assessment and plan 1. ESRD (end stage renal disease) on dialysis: 54-year-old lady diabetes hypertension heart failure preserved EF, peripheral tibial disease pleural effusions recurrent. Patient's PleurX catheter is not draining. Patient has ESRD she was supposed to be transition to hemodialysis she is back on peritoneal dialysis. Patient had a recent similar admission where she improved with hemodialysis. Patient now presents with volume overload hypertension shortness of breath. Will plan for hemodialysis today. Will then discuss with the patient further about hemodialysis versus PD. PleurX catheter to be assessed by hospitalist. Mild leukocytosis monitor. Anemia from ESRD. Can start Epogen once blood pressure improves. Check TSH check vitamin D levels Patient seen and examined using audiovisual equipment with the aid of a nurse. The patient consented to telehealth and to hemodialysis and peritoneal dialysis. Plan: Will provide hemodialysis today. PDMP PDMP Reviewed: Not Reviewed Consult Attestations Medical Necessity Statement: Hypertensive urgency volume overload ESRD Time Spent in Patient Care: Greater than 35 minutes (>than 50% of time spent in counselling and/or direct pt care on unit). Coding Level of Care Code Acute Code for Chg Fwd Diagnoses ESRD (end stage renal disease) on dialysis N18.6; Z99.2
[2025-07-15 18:39] LABS: Procalcitonin 0.15 ng/mL (0-0.5)
[2025-07-15 18:50] LABS: Alanine Aminotransferase 8 U/L (0-33); Albumin Level 3.3 g/dL (3.5-5.2); Alkaline Phosphatase 85 U/L (35-105); Anion Gap 26.1 (5-19); Aspartate Amino Transferase 16 U/L (0-32); Blood Urea Nitrogen 56 mg/dL (6-20); Calcium 9.2 mg/dL (8.5-10.5); Carbon Dioxide 21 mmol/L (22-29); Chloride 98 mmol/L (98-107); Creatinine Clr Calc Pharmacy 0.0269; Globulin 4.6 g/dL (1.3-4.6); Glucose 123 mg/dL (65-115); Osmolality Calculated 305 mOsm/kg (285-295); Potassium 6.1 mmol/L (3.5-5.1); Sodium 139 mmol/L (136-145); Total Protein 7.9 g/dL (6.6-8.7)
[2025-07-15 19:05] LABS: Calcium 9.1 mg/dL (8.5-10.5)
[2025-07-15 19:16] LABS: Iron 42 ug/dL (37-145); Thyroid Stimulating Hormone 7.84 uIU/mL (0.27-4.20); Total Iron Binding Capacity 155 mcg/dl; Unsaturated Iron Binding 113 ug/dL (112-347)
[2025-07-15 19:21] LABS: NT Pro B Type Natriuretic Pept > 70000 pg/mL (0-125)
[2025-07-15 19:29] LABS: Ferritin 1752 ng/mL (15-150)
--- NOTE | 2025-07-15 19:40 | PM.CONSULT ---
Providers/Reason For Consult Consulting Physician/Specialty*: Emergency department Reason for Consult*: Abnormal chest imaging Primary Care Provider: SEGUN Mulligan History of Present Illness History of Present Illness Lizy Evans is a 54 year old female with history of end-stage renal disease on peritoneal dialysis, CAD, diabetes and recurrent right pleural effusion who presented to the emergency room with severe progressive shortness of breath over the past 2 days. Patient had right thoracoscopy with pleural biopsy, right pleurodesis with PleurX placement on 06/27/2025. Procedure went well and patient underwent hemodialysis for almost 2 weeks before she was transition to routine dialysis on 07/11/2025 after we confirmed that she has pleurodesis. Her daughter is a registered nurse and reported they are been only 10-20 cc of fluid coming from the PleurX on the daily drainage. Patient reported that she has been feeling great since the pleurodesis until 2 days ago when she started to have progressive shortness of breath and she noticed that her ultrafiltration on the procedure dialysis went down. Patient the ED had elevated blood pressure with systolic above 200. Her proBNP came back more than 70,000. Chest x-ray showed bilateral opacification most consistent with flash pulmonary edema. Patient denied chest pain, no fever, no chills but she reported positive orthopnea. Review of Systems Narrative: Per HPI Medications/Allergies Home Medications ?Medication ?Instructions ?Recorded ?Confirmed ?Last Taken ?Type omeprazole 20 mg capsule,delayed 20 mg PO DAILY 04/06/24 06/26/25 06/26/25 History release cetirizine 10 mg tablet 10 mg PO DAILY PRN Allergy Symptoms 05/23/24 06/26/25 06/26/25 History calcitriol 0.25 mcg capsule 0.25 mcg PO DAILY 10/30/24 06/26/25 06/26/25 History vit B,C-folic ac 800 mcg-zinc 12.5 1 tab PO DAILY 10/30/24 06/26/25 06/26/25 History mg-selen-D3 2,000 unit-vit E tablet (RenaPlex-D) sevelamer carbonate 800 mg tablet 800 mg PO TID 12/07/24 06/26/25 06/26/25 History torsemide 100 mg tablet 100 mg PO DAILY 12/07/24 06/26/25 06/26/25 History blood-glucose sensor (FreeStyle #2 ea 02/12/25 06/28/25 Unknown Rx Palak 3 Plus Sensor device) aspirin 81 mg capsule 81 mg PO DAILY #90 caps 02/18/25 06/26/25 06/26/25 Rx clopidogrel 75 mg tablet 75 mg PO DAILY #90 tabs 02/18/25 06/26/25 06/21/25 Rx nifedipine 60 mg tablet,extended 60 mg PO DAILY 03/20/25 06/26/25 06/26/25 History release duloxetine 30 mg capsule,delayed 30 mg PO .q am #30 caps 04/16/25 06/26/25 06/26/25 Rx release sodium bicarbonate 650 mg tablet 650 mg PO BID 04/16/25 06/26/25 06/26/25 History diabetic shoes with 3 inserts #1 ea 04/18/25 06/28/25 Unknown Rx atorvastatin 40 mg tablet 40 mg PO DAILY 06/26/25 06/26/25 06/26/25 History hydralazine 50 mg tablet 100 mg PO TID 06/26/25 06/26/25 06/26/25 History lisinopril 40 mg tablet 40 mg PO DAILY 06/26/25 06/26/25 06/25/25 History albuterol sulfate 90 mcg/actuation 1 puff inhalation BID PRN 06/28/25 06/28/25 Unknown History aerosol inhaler Shortness Of Breath Or Wheezing gentamicin 0.1 % topical cream See Rx Instructions .Route .COMPLEX 06/28/25 06/28/25 Unknown History ondansetron 4 mg disintegrating 4 mg PO Q6H PRN Nausea And Vomiting 06/28/25 06/28/25 Unknown History tablet carvedilol 25 mg tablet 12.5 mg (1/2 x 25 mg) PO BID 30 07/01/25 06/28/25 Unknown Rx days #30 tabs insulin aspart U-100 100 unit/mL See Rx Instructions .Route 07/12/25 Unknown Rx (3 mL) subcutaneous pen (Novolog .COMPLEX #15 mL FlexPen U-100 Insulin aspart) Allergies Allergy/AdvReac Type Severity Reaction Status Date / Time venom-honey bee Allergy Severe ALGY-Redness Verified 07/15/25 16:28 of Skin marijuana (cannabis) Allergy Intermediate ADR-Nausea Verified 07/15/25 16:28 codeine AdvReac Severe ADR-Vomitin Verified 07/15/25 16:28 g morphine AdvReac Severe ADR-Vomitin Verified 07/15/25 16:28 g propoxyphene (From AdvReac Severe ADR-Vomitin Verified 07/15/25 16:28 Darvocet-N) g latex AdvReac Intermediate ALGY-Rash Verified 07/15/25 16:28 PFSH Acute PFSH: Medical History (Updated 07/15/25 @ 19:46 by Geri Villarreal MD) Pleural effusion PAD (peripheral artery disease) Essential hypertension Peritoneal dialysis catheter in place Uncontrolled type 2 diabetes mellitus Anemia of chronic disease ESRD (end stage renal disease) Diabetic neuropathy, type II diabetes mellitus Diabetic retinopathy Bereavement Major depressive disorder, recurrent, in partial remission Psychiatric care FH: total knee replacement left HLA B27 (HLA B27 positive) High risk medication use Inflammatory arthritis Seronegative spondyloarthropathy Chronic insomnia See subjective note below. Chronic pain See subjective note below. Chronic post-traumatic stress disorder (PTSD) Generalized anxiety disorder Major depressive disorder, recurrent, moderate Surgical History History of cataract extraction History of hysterectomy for benign disease History of tonsillectomy History of appendectomy History of left knee replacement Family History Mother Hypertension Diabetes Psychiatric illness Thyroid disease Father , in his 50's Family history of premature coronary artery disease Hyperlipidemia Myocardial infarction Brother Hypertension Sister No problems noted. Denies family history of Rheumatoid arthritis Lupus Social History Smoking and tobacco/nicotine status: never used tobacco/nicotine Second hand smoke exposure: No Alcohol intake: never Substance/Drug Use: never Adopted: No Caregiver/support person: No Lives independently: No Household members: family service: No Current occupational status: unemployed and disabled Sexually active: Yes Do you think of yourself as: Straight/Heterosexual Current gender identity: Female Vitals/I&O/Wt Last Vital Signs Temp 98.2 F 07/15/25 16:21 Pulse 74 07/15/25 18:30 Resp 28 H 07/15/25 16:21 BP 218/117 07/15/25 18:30 Pulse Ox 95 07/15/25 18:30 O2 Del Method Nasal Cannula 07/15/25 16:21 O2 Flow Rate 3 07/15/25 16:21 Weight last 48 hrs Weight 6.632 oz Physical Exam Narrative: Alert oriented x 3. Mildly tachypneic Lung exam with good air entry bilaterally and diffuse crackles Lower extremity with minimal lower limb edema PleurX exit site without evidence of erythema or abnormal drainage Data 07/15/25 17:44 07/15/25 17:44 Micro: Microbiology 07/15/25 17:44 Blood Culture - Preliminary Blood SPECIMEN COLLECTED 07/15/25 17:44 Blood Culture - Preliminary Blood SPECIMEN COLLECTED A&P Assessment and plan 1. Dyspnea: 2. Acute hypoxemic respiratory failure: Plan: Right PleurX was examined. No evidence of exit site infection. I accessed her PleurX and drained about 20 cc of yellow fluid without evidence of pus or purulent secretion. Patient had elevated systolic pressure above 200. Her proBNP above 70,000. Her presentation is not related to her PleurX. Her presentation is mostly consistent with acute volume overload resulting in acute flash pulmonary edema in the setting of possible hypervolemia with dialysis versus acute decompensated heart failure. CT chest is pending as patient is unable to lie flat for now. Nephrology has been consulted and they are planning on emergent dialysis. If CT confirms no evidence of large right pleural effusion, we might proceed with removing the tunneled chest tube per patient wishes as she appears to be successfully achieved pleurodesis. I would recommend cardiology consultation and investigating underlying acute coronary artery disease resulting in decompensated heart failure. Discussed with Dr. Bishop in the emergency department. Also updated the patient daughter at the bedside Geri Villarreal MD, FACP, FASN Interventional Pulmonary PDMP PDMP Reviewed: Not Reviewed Coding Level of Care Code Acute Code for Chg Fwd Diagnoses Dyspnea R06.00 Acute hypoxemic respiratory failure J96.01
[2025-07-15 20:33] LABS: Troponin(5th) Baseline 210 ng/L (0-10)
[2025-07-15 20:38] LABS: Troponin 5 2HR Delta 6.4 ABS# (0-10)
[2025-07-15 20:42] LABS: Troponin 5 2HR 216.4 ng/L (0-10)
--- NOTE | 2025-07-15 22:09 | PHA.VACGOAL ---
Vancomycin Goal - Goal Vancomycin Goal:: 15-20 mg/L Vancomycin Indication:: Pneumonia - Therapy Current therapy:: Pip/Tazo Day of therpy:: Day []of [] . Actual body weight (kg): 192 lb 14.472 oz - Data Labs: WBC 12.91 10^3/uL (3.29-11.43) H 07/15/25 17:44 RBC 3.67 10^6/uL (3.85-5.65) L 07/15/25 17:44 Hgb 9.60 g/dL (11.27-16.99) L 07/15/25 17:44 Hct 31.5 % (36-47) L 07/15/25 17:44 MCV 85.8 fl (85-98) 07/15/25 17:44 MCH 26.2 pg (27-33) L 07/15/25 17:44 MCHC 30.5 g/dL (30-55) 07/15/25 17:44 RDW 15.7 % (12.1-15.1) H 07/15/25 17:44 Sodium 139 mmol/L (136-145) 07/15/25 17:44 Potassium 6.1 mmol/L (3.5-5.1) H 07/15/25 17:44 Chloride 98 mmol/L (98-107) 07/15/25 17:44 Carbon Dioxide 21 mmol/L (22-29) L 07/15/25 17:44 Anion Gap 26.1 (5-19) H 07/15/25 17:44 BUN 56 mg/dL (6-20) H 07/15/25 17:44 Creatinine 7.1 mg/dL (0.5-0.9) H* 07/15/25 17:44 GFR Calculation 6.0 mL/min (90-130) L 07/15/25 17:44 Last dialysis session:: Last session (07/15/25) Treatment plan:: new consult Regimen:: PATIENT HEADED TO EMERGENCY DIALYSIS SCHEDULE PER NURSE PIERRE. SCHEDULED 1500 MG LOADING DOSE FOR 5 HOURS NOW TO ALLOW TIME FOR DIALYSIS. DOSE SCHEDULED FOR 07/16/25 AT 0300. WILL DETERMINE FURTHER DOSING BASED ON LEVELS AND DIALYSIS SCHEDULE ONCE KNOWN. Follow up:: WILL CONTINUE TO MONITOR DAILY AND PLAN TO DRAW TROUGH BASED ON FUTURE DIALYSIS SCHEDULE. Rationale:: PATIENT CURRENTLY BEING TREATED FOR SUSPECTED PNEUMONIA. PATIENT HAS ESRD ON DIALYSIS, AND IS RECEIVING EMERGENCY DIALYSIS SESSION [facility], 07/15/25 AROUND 2230. FUTURE DIALYSIS PLAN IS UNKNOWN AT THIS TIME. BASED LOADING DOSE ON 15 MG/KG LOADING DOSE PER PROTOCOL, ROUNDING TO 1500 MG. WILL DETERMINE MAINTENANCE DOSE BASED ON LEVELS AND DIALYSIS.
[2025-07-15] MEDS: heparin 5,000 unit/mL INJ 1 mL 5000 UNIT SUBCUT (22:11)
[2025-07-15 22:45] LABS: Hepatitis B Surface Antigen Non-Reactive (Nonreactive)
[2025-07-15] MEDS: heparin, porcine 1,000 unit/mL INJ 10 mL 1000 UNIT IV (23:08)
[2025-07-15] MEDS: hyDRALAzine 20 mg/mL INJ 1 mL IVP (23:32)
--- NOTE | 2025-07-15 23:38 | PM.HP ---
Providers/Chief Complaint Admitting Physician: Liudmila Shaw MD Primary Care Provider: SEGUN Mulligan Chief Complaint: SOB History of Present Illness As per the previous notes and the patient Lizy Evans is a 54 year old female history of end-stage renal disease on peritoneal dialysis, CAD, diabetes and recurrent right pleural effusion who presented to the emergency room with severe progressive shortness of breath over the past 2 days. The patient explained that she is on peritoneal dialysis and her dialysis was not adequate yesterday. Usually she has full 3 bags out of her peritoneum but this time it was partially drained. There was no cloudiness of her peritoneal drainage catheter, any fevers or chills. The patient reported having orthopnea and PND. But no chest pain/chest pressure, headaches blurriness of vision or any focal deficit. She also reported mild trace pedal edema. Of note:patient had right thoracoscopy with pleural biopsy, right pleurodesis with PleurX placement on 06/27/2025. Her daughter is a registered nurse and reported they are been only 10-20 cc of fluid coming from the PleurX on the daily drainage. And there was no issue with the drainage as per the patient. Patient reported that she has been feeling great since the pleurodesis until 2 days ago when she started to have progressive shortness of breath and she noticed that her ultrafiltration on the procedure dialysis went down. Patient presented to the ED with shortness of breath and was found to have elevated blood pressure with systolic above 200. Her proBNP came back more than 70,000. Chest x-ray showed bilateral opacification most consistent with flash pulmonary edema likely secondary to inadequate peritoneal dialysis. He was also found to have leukocytosis. Nephrology was consulted and started on dialysis. Prevention court monitor and java core developer on board as well. Review of Systems General: Reports: 10 or more systems reviewed and unremarkable except in HPI and below Medications/Allergies Home Medications ?Medication ?Instructions ?Recorded ?Confirmed ?Last Taken ?Type omeprazole 20 mg capsule,delayed 20 mg PO DAILY 04/06/24 06/26/25 06/26/25 History release cetirizine 10 mg tablet 10 mg PO DAILY PRN Allergy Symptoms 05/23/24 06/26/25 06/26/25 History calcitriol 0.25 mcg capsule 0.25 mcg PO DAILY 10/30/24 06/26/25 06/26/25 History vit B,C-folic ac 800 mcg-zinc 12.5 1 tab PO DAILY 10/30/24 06/26/25 06/26/25 History mg-selen-D3 2,000 unit-vit E tablet (RenaPlex-D) sevelamer carbonate 800 mg tablet 800 mg PO TID 12/07/24 06/26/25 06/26/25 History torsemide 100 mg tablet 100 mg PO DAILY 12/07/24 06/26/25 06/26/25 History blood-glucose sensor (FreeStyle #2 ea 02/12/25 06/28/25 Unknown Rx Palak 3 Plus Sensor device) aspirin 81 mg capsule 81 mg PO DAILY #90 caps 02/18/25 06/26/25 06/26/25 Rx clopidogrel 75 mg tablet 75 mg PO DAILY #90 tabs 02/18/25 06/26/25 06/21/25 Rx nifedipine 60 mg tablet,extended 60 mg PO DAILY 03/20/25 06/26/25 06/26/25 History release duloxetine 30 mg capsule,delayed 30 mg PO .q am #30 caps 04/16/25 06/26/25 06/26/25 Rx release sodium bicarbonate 650 mg tablet 650 mg PO BID 04/16/25 06/26/25 06/26/25 History diabetic shoes with 3 inserts #1 ea 04/18/25 06/28/25 Unknown Rx atorvastatin 40 mg tablet 40 mg PO DAILY 06/26/25 06/26/25 06/26/25 History hydralazine 50 mg tablet 100 mg PO TID 06/26/25 06/26/25 06/26/25 History lisinopril 40 mg tablet 40 mg PO DAILY 06/26/25 06/26/25 06/25/25 History albuterol sulfate 90 mcg/actuation 1 puff inhalation BID PRN 06/28/25 06/28/25 Unknown History aerosol inhaler Shortness Of Breath Or Wheezing gentamicin 0.1 % topical cream See Rx Instructions .Route .COMPLEX 06/28/25 06/28/25 Unknown History ondansetron 4 mg disintegrating 4 mg PO Q6H PRN Nausea And Vomiting 06/28/25 06/28/25 Unknown History tablet carvedilol 25 mg tablet 12.5 mg (1/2 x 25 mg) PO BID 30 07/01/25 06/28/25 Unknown Rx days #30 tabs insulin aspart U-100 100 unit/mL See Rx Instructions .Route 07/12/25 Unknown Rx (3 mL) subcutaneous pen (Novolog .COMPLEX #15 mL FlexPen U-100 Insulin aspart) Allergies Allergy/AdvReac Type Severity Reaction Status Date / Time venom-honey bee Allergy Severe ALGY-Redness Verified 07/15/25 16:28 of Skin marijuana (cannabis) Allergy Intermediate ADR-Nausea Verified 07/15/25 16:28 codeine AdvReac Severe ADR-Vomitin Verified 07/15/25 16:28 g morphine AdvReac Severe ADR-Vomitin Verified 07/15/25 16:28 g propoxyphene (From AdvReac Severe ADR-Vomitin Verified 07/15/25 16:28 Darvocet-N) g latex AdvReac Intermediate ALGY-Rash Verified 07/15/25 16:28 PFSH Acute PFSH: Medical History (Updated 07/15/25 @ 23:54 by Melyssa Neff MD) Sepsis Pleural effusion PAD (peripheral artery disease) Essential hypertension Peritoneal dialysis catheter in place Uncontrolled type 2 diabetes mellitus Anemia of chronic disease ESRD (end stage renal disease) Diabetic neuropathy, type II diabetes mellitus Diabetic retinopathy Bereavement Major depressive disorder, recurrent, in partial remission Psychiatric care FH: total knee replacement left HLA B27 (HLA B27 positive) High risk medication use Inflammatory arthritis Seronegative spondyloarthropathy Chronic insomnia See subjective note below. Chronic pain See subjective note below. Chronic post-traumatic stress disorder (PTSD) Generalized anxiety disorder Major depressive disorder, recurrent, moderate Surgical History History of cataract extraction History of hysterectomy for benign disease History of tonsillectomy History of appendectomy History of left knee replacement Family History Mother Hypertension Diabetes Psychiatric illness Thyroid disease Father , in his 50's Family history of premature coronary artery disease Hyperlipidemia Myocardial infarction Brother Hypertension Sister No problems noted. Denies family history of Rheumatoid arthritis Lupus Social History Smoking and tobacco/nicotine status: never used tobacco/nicotine Second hand smoke exposure: No Alcohol intake: never Substance/Drug Use: never Adopted: No Caregiver/support person: No Lives independently: No Household members: family service: No Current occupational status: unemployed and disabled Sexually active: Yes Do you think of yourself as: Straight/Heterosexual Current gender identity: Female Vitals/I&O/Wt Last Vital Signs Temp 98.1 F 07/15/25 23:33 Pulse 82 07/15/25 23:33 Resp 35 H 07/15/25 23:33 BP 220/120 07/15/25 23:33 Pulse Ox 92 07/15/25 22:30 O2 Del Method Nasal Cannula 07/15/25 21:23 O2 Flow Rate 3 07/15/25 19:30 Weight last 48 hrs Weight 87.5 kg Weight 188 g Physical Exam Narrative: General: Alert and oriented, lying with mild to moderate distress due to shortness of breath. However able to speak in full sentences HEENT: Normocephalic, atraumatic, grossly unremarkable exam Cardio: Sinus tachycardia, normal S1-S2 without any murmurs, rubs, or gallops. Respiratory: Normal vesicular breathing without any wheezes or stridor however having bibasal inspiratory crepitations up to mid zone and wet cough GI: Abdomen soft, nontender, nondistended, normoactive bowel sounds present all 4 quadrants, Neuro: intact cranial nerves motor and sensory and cerebellar/coordination function without any focal neurological deficit Behavior: Appropriate and cooperative Extremities: 3+ pedal edema reaching above knees, adequate capillary refill present Data 07/15/25 17:44 07/15/25 17:44 Micro: Microbiology 07/15/25 23:20 Blood Culture - Preliminary Blood SPECIMEN COLLECTED 07/15/25 22:24 Blood Culture - Preliminary Blood SPECIMEN COLLECTED 07/15/25 17:44 Blood Culture - Preliminary Blood SPECIMEN COLLECTED 07/15/25 17:44 Blood Culture - Preliminary Blood SPECIMEN COLLECTED A&P Assessment and plan 1. Acute hypoxemic respiratory failure: Patient having features of pulmonary overload As per nephrology to start the patient on hemodialysis. Patient is still producing urine and given Lasix without any adequate response, insert Segal's catheter and to measure adequate intake and output 2. Sepsis: Patient is having severe sepsis, with leukocytosis and tachypnea and hypoxemia Not in shock. Normal lactate and adequate perfusion Sent for blood cultures, body fluid cultures from peritoneal catheter Vancomycin and Zosyn Monitor hemodynamic 3. Malignant hypertension: Patient had inadequate peritoneal dialysis yesterday, received IV labetalol and hydralazine. Resume home medications and to start the patient on dialysis Monitor vitals 4. Pulmonary edema: Continue oxygen therapy as per protocol Hemodialysis session Intake and output monitoring 5. Recurrent right pleural effusion: Interventional court monitor on board and to follow the recommendations 6. Presence of stent in LAD coronary artery: Troponins did not have increase in delta however the patient has raised troponins as baseline due to end-stage renal disease. proBNP was more than 70,000, repeat echo and EKG Cardiology on board and consulted and to follow the recommendations Can resume home medications for coronary artery disease, aspirin and clopidogrel after medication confirmation reconciliation Patient on home atorvastatin to resume after confirmation 7. PAD (peripheral artery disease): Patient on aspirin and clopidogrel and statins Patient need medication confirmation reconciliation before resuming home medications 8. Uncontrolled type 2 diabetes mellitus: Recent HbA1c 5.8 Monitor glucose 9. Peritonitis due to infected peritoneal dialysis catheter: Patient having leukocytosis, to check for blood cultures and peritoneal fluid culture Started on Vanco and Zosyn as per pharmacist protocol to be adjusted based on patient end-stage renal disease 10. Inflammatory arthritis: Continue home dose duloxetine and other analgesics after reconciliation PDMP PDMP Reviewed: Not Reviewed Attestations Medical Necessity Statement*: Lizy Evans's hospital stay will require greater than 2 midnights for manage history of acute hypoxemic respiratory failure severe sepsis and optimization of rest of her comorbidities Time Spent in Patient Care: 16 - 35 minutes (>than 50% of time spent in counselling and/or direct pt care on unit). Critical Care Time: The high probability of a clinically significant, sudden or life threatening deterioration, as referenced in this documentation, required my full and direct attention, intervention and personal management. The critical care time shown is in addition to time spent performing any reported separately billable procedures and includes the following: [x] Data and vital sign review and interpretation [x] Patient assessment, examination and intervention [x] Medication orders and management [x] Patient/Family updates as able [x] Care Coordination and Documentation. Critical Care Time (min): 35 Coding Level of Care Code Critical Care >/= 30 minutes Diagnoses Acute hypoxemic respiratory failure J96.01 Sepsis A41.9 Malignant hypertension I10 Pulmonary edema J81.1 Recurrent right pleural effusion J90 Presence of stent in LAD coronary artery Z95.5 PAD (peripheral artery disease) I73.9 Uncontrolled type 2 diabetes mellitus Peritonitis due to infected peritoneal dialysis catheter T85.71XA; K65.9 Inflammatory arthritis M19.90
[2025-07-16] VITALS (162 sets, daily range): BP systolic 84–206; BP diastolic 40–122; PULSE 73–94; RESP 13–35; TEMP 36.1–37; O2SAT 81–100
[2025-07-16 00:24] LABS: Free T4 Free Thyroxine 1.03 ng/dL (0.82-1.77)
[2025-07-16] MEDS: nicardipine 20 MG/200 ML PREMIX 50 MG IV (02:17)
[2025-07-16 02:40] LABS: Hematocrit 30.9 % (36-47); Hemoglobin 9.70 g/dL (11.27-16.99); Mean Corpuscular HGB Conc 31.4 g/dL (30-55); Mean Corpuscular Hemoglobin 26.7 pg (27-33); Mean Corpuscular Volume 85.1 fl (85-98); Nucleated Red Blood Cells % 0 %; Platelet Count 526 10^3/cmm (157-399); Red Blood Count 3.63 10^6/uL (3.85-5.65); White Blood Count 13.18 10^3/uL (3.29-11.43)
[2025-07-16] MEDS: piperacillin-tazobactam 2.25 GM in sodium chloride 0.9% (plus) 50 ML IV ×2 (02:45→15:36)
[2025-07-16 03:08] LABS: Troponin 5 6HR 302.5 ng/L (0-10); Troponin 5 6HR Delta 92.5 ng/L (0-12)
[2025-07-16 03:12] LABS: Alanine Aminotransferase 9 U/L (0-33); Albumin Level 3.3 g/dL (3.5-5.2); Alkaline Phosphatase 82 U/L (35-105); Anion Gap 23.1 (5-19); Aspartate Amino Transferase 16 U/L (0-32); Blood Urea Nitrogen 30 mg/dL (6-20); Calcium 8.9 mg/dL (8.5-10.5); Carbon Dioxide 22 mmol/L (22-29); Chloride 99 mmol/L (98-107); Creatinine Clr Calc Pharmacy 16.3980; Globulin 3.6 g/dL (1.3-4.6); Glucose 108 mg/dL (65-115); Magnesium 1.9 mg/dL (1.7-2.3); Osmolality Calculated 295 mOsm/kg (285-295); Potassium 5.1 mmol/L (3.5-5.1); Sodium 139 mmol/L (136-145); Total Protein 6.9 g/dL (6.6-8.7)
--- NOTE | 2025-07-16 03:15 | ECG_ITS ---
[facility] Date: 2025-07-16 Pat Name: Lizy Evans Department: Room: ICU12 Gender: Female Boy'S Adviser: : 1970 Requested By: Melyssa Neff Order Number: [id number] Herson MD: Cornell Cisneros M.D. Measurements Intervals [place] Rate: 89 P: 38 IL: 150 QRS: -68 QRSD: 87 T: 137 QT: 407 QTc: 496 Interpretive Statements SINUS RHYTHM LOW QRS VOLTAGE IN EXTREMITY LEADS [QRS DEFLECTION < 0.5 mV IN LIMB LEADS] PATTERN CONSISTENT WITH PULMONARY DISEASE LEFT ANTERIOR FASCICULAR BLOCK [QRS AXIS <= -45, QR IN I, RS IN II] ABNORMAL QRS-T ANGLE [QRS-T AXIS DIFFERENCE > 60] Compared to ECG 12/07/2024 09:58:54 Left anterior fascicular block now present Left-axis deviation no longer present Myocardial infarct finding no longer present Electronically Signed On 07-18-2025 09:01:48 CDT by Cornell Cisneros M.D. [email or web address]
[2025-07-16] MEDS: heparin 5,000 unit/mL INJ 1 mL IVP (04:04)
[2025-07-16] MEDS: heparin drip 25,000 UNIT/500 ML PREMIX 24 UNIT IV (04:05)
[2025-07-16 05:16] LABS: Troponin(5th) Baseline 306 ng/L (0-10)
[2025-07-16 06:41] LABS: Troponin 5 2HR Delta 3.3 ABS# (0-10)
[2025-07-16 06:44] LABS: Troponin 5 2HR 309.3 ng/L (0-10)
--- NOTE | 2025-07-16 08:29 | CT_ITS ---
WS: [id number] CT chest wo con [id number] HISTORY: Fluid status and dialysis port assessment TECHNIQUE: Axial imaging performed through the thorax. Coronal and sagittal reformats are submitted. All CT scans at [facility] use at least one of these dose optimization techniques: automated exposure control; mA and/or kV adjustment per patient size (includes targeted exams where dose is matched to clinical indication); or iterative reconstruction. CONTRAST: None DLP: 513.21 mGy.cm COMPARISON: 07/11/2025 Lungs and central airway: Decreased lung volumes. Bilateral groundglass attenuation throughout both lungs. Progressed since 07/11/2025. No pneumothorax. Pleura: Increasing but small bilateral pleural effusions, LEFT greater than RIGHT. Right-sided Pleurx catheter with tip terminating in the inferior pleural space surrounded by residual fluid. Areas of increased attenuation in the RIGHT pleural space may be from pleurodesis. Heart and pericardium: Moderate cardiomegaly. No pericardial effusion. Mediastinum and rj: Increasing size and number of the mediastinal and hilar lymph nodes. High RIGHT paratracheal lymph node is 13 mm. Aortic lymph node is 10 mm. Vessels: Mild atherosclerosis aorta. Normal size thoracic aorta. Mildly dilated pulmonary artery. Patient has a large bore dual lumen dialysis catheter. Catheter tips are very closely associated with the tricuspid valve plane. Chest wall and lower neck: Mild soft tissue anasarca. Upper abdomen: Atherosclerosis aorta. Cholelithiasis without acute cholecystitis. No adrenal mass. Osseous structures: No destructive process. CT/CT chest wo con [id number] IMPRESSION: 1. Diffuse new groundglass opacifications with scattered more focal consolidat ions throughout both lungs most likely due to pulmonary edema. 2. Small bilateral pleural effusions, LEFT greater than RIGHT. 3. No change in the RIGHT Pleurx catheter position. 4. No pneumothorax. 5. Cardiomegaly, moderate. 6. Dialysis catheter is present. Tip of the dialysis catheter is very closely associated with the tricuspid valve plane. Catheter tip placement has not avila ed over multiple prior radiographs. 7. Indeterminate mediastinal and hilar lymph nodes. Lymph nodes have slightly increased in size since the prior study.
[2025-07-16] MEDS: pantoprazole 40 mg SDV IVP (08:39)
--- NOTE | 2025-07-16 09:10 | P.CONIM_ITS ---
<Statement entered by Winter Ramirez MD - 07/16/25 19:33> Patient was evaluated and cared for in conjunction with an advanced practice practitioner. I personally examined the patient and reviewed the chart and all pertinent data including imaging, telemetry, and laboratory results. I discussed the patient in detail with the advanced practice practitioner. Please see their note for complete H&P testing result and agreed upon plan of care for the patient. 54-year-old female past medical history significant for hypertension chronic kidney disease coronary artery disease diastolic heart failure presented with volume overload status hypertensive urgency and elevated cardiac marker. Patient underwent mid LAD stent in November 2024, residual mild ostial diagonal and proximal moderate LAD stenosis GENERAL: Patient is alert, awake and oriented x3. HEART: Regular S1 and S2. No murmur, rub or gallop. LUNGS: Clear to auscultate bilaterally. CENTRAL NERVOUS SYSTEM: Grossly nonfocal. EXTREMITIES: Lower extremities with out edema bilaterally. Assessment and plan Acute decompensated diastolic on chronic heart failure Elevated cardiac markers Chronic kidney disease on peritoneal dialysis Patient presentation is clearly secondary to volume overload status decompensated diastolic heart failure. He may require adequate dialysis to achieve euvolemic state after first dialysis this morning she is feeling much better and blood pressure well-controlled. Will readjust medication and optimize the regimen Plan for Lexiscan MIBI stress test in the morning to assess ischemia burden in LAD territory because patient has residual moderate proximal LAD lesion at that time of PCI in November it was not significant, further plan will advise after the stress test Providers/Reason For Consult 2 Consulting Physician/Specialty*: Dr Mago Ramirez, interventional cardiology Reason for Consult*: Troponin elevation Requesting Physician: Lawson Diaz MD Attending Physician: Lawson Diaz MD Primary Care Provider: SEGUN Mulligan History of Present Illness History of Present Illness Lizy Evans is a 54 year old female with past medical history of end-stage renal disease, recurrent pleural effusion, previously on peritoneal dialysis although has a tunneled dialysis catheter which has been in use since her last admission 06/27/25 for pleurodesis with PleurX drain placement. Additional history includes type 2 diabetes, CAD (LAD and first diagonal stents placed 12/12/2024), hypertension, anemia of chronic disease. She presented to the emergency room 07/15/2025 for worsening shortness of breath, required emergency dialysis due to pulmonary edema which improved shortness of breath significantly. She never had any chest pain prior to onset of shortness of breath, although blood pressure was very high initially to 226/110, peaked at 234/115. She required labetalol IV push, hydralazine IV push and was started on nicardipine infusion. TSH 7.84, free T31.5, PTH 164, BNP greater than 70,000. BUN 30, creatinine 4.1, potassium 5.1, hemoglobin 9.7. She had 3 L out in hemodialysis earlier this morning. She is making some urine but no urine output has been charted yet. Echocardiogram in November of this year revealed LVEF 55 to 60%. No ischemic EKG changes. Review of Systems 2 Const: Denies: fever(s), chills, change in weight, fatigue or diaphoresis Eyes: Denies: change in vision ENMT: Denies: epistaxis Card: Denies: chest pain, palpitations, irregular heart rhythm, edema, syncope, pre-syncope, dyspnea on exertion, orthopnea or leg pain with exertion Resp: Reports: dyspnea (improving ); Denies: productive cough or wheezing GI: Denies: nausea, vomiting, hematemesis, hematochezia or melena : Denies: hematuria Musc: Denies: extremity swelling Carlos/Lymph: Denies: easy bruising or easy bleeding Medications/Allergies Home Medications ?Medication ?Instructions ?Recorded ?Confirmed ?Last Taken ?Type omeprazole 20 mg capsule,delayed 20 mg PO DAILY 07/16/25 06/26/25 History release cetirizine 10 mg tablet 10 mg PO DAILY PRN Allergy S ymptoms 05/23/24 07/16/25 06/26/25 History calcitriol 0.25 mcg capsule 0.25 mcg PO DAILY 10/30/24 07/16/25 06/26/25 History vit B,C-folic ac 800 mcg-zinc 12.5 1 tab PO DAILY 10/1707/16/25 06/26/25 History mg-selen-D3 2,000 unit-vit E tablet (RenaPlex-D) sevelamer carbonate 800 mg tablet 800 mg PO TID 07/16/25 06/26/25 History torsemide 100 mg tablet 100 mg PO DAILY 12/07/2406/26/25 History blood-glucose sensor (FreeStyle #2 ea 02/12/25 5 Unknown Rx Palak 3 Plus Sensor device) aspirin 81 mg capsule 81 mg PO DAILY #90 caps 05/03/1007/16/25 06/26/25 Rx clopidogrel 75 mg tablet 75 mg PO DAILY #90 tabs 03/1007/16/25 06/21/25 Rx nifedipine 60 mg tablet,extended 60 mg PO DAILY 07/16/25 06/26/25 History release duloxetine 30 mg capsule,delayed 30 mg PO .q am #30 ca ps 04/16/25 07/16/25 06/26/25 Rx release sodium bicarbonate 650 mg tablet 650 mg PO BID 5 07/16/25 06/26/25 History diabetic shoes with 3 inserts #1 ea 04/18/25 07/16/25 Unknown Rx atorvastatin 40 mg tablet 40 mg PO DAILY 06/26/2506/1906/26/25 History hydralazine 50 mg tablet 100 mg PO TID 06/26/2507/1606/26/25 History lisinopril 40 mg tablet 40 mg PO DAILY 06/26/2506/1906/25/25 History albuterol sulfate 90 mcg/actuation 1 puff inhalation B ID PRN 06/28/25 07/16/25 Unknown History aerosol inhaler Shortness Of Breath Or Wheez ing gentamicin 0.1 % topical cream See Rx Instructions .Ro [place] .COMPLEX 06/28/25 07/16/25 Unknown History ondansetron 4 mg disintegrating 4 mg PO Q6H PRN Nausea And Vomiting 06/28/25 07/16/25 Unknown History tablet carvedilol 25 mg tablet 12.5 mg (1/2 x 25 mg) PO BID 30 07/01/25 07/16/25 Unknown Rx days #30 tabs insulin aspart U-100 100 unit/mL See Rx Instructions . Route 07/12/25 07/16/25 Unknown Rx (3 mL) subcutaneous pen (Novolog .COMPLEX #15 mL FlexPen U-100 Insulin aspart) Allergies Allergy/AdvReac Type Severity Reaction Status Date / Time venom-honey bee Allergy Severe ALGY-Redness Verified 07/15/25 16:28 of Skin marijuana (cannabis) Allergy Intermediate ADR-Nausea Verified 07/15/25 16:28 codeine AdvReac Severe ADR-Vomitin Verified 07/15/25 16:28 g morphine AdvReac Severe ADR-Vomitin Verified 07/15/25 16:28 g propoxyphene (From AdvReac Severe ADR-Vomitin Verified 07/15/25 16:28 Darvocet-N) g latex AdvReac Intermediate ALGY-Rash Verified 07/15/25 16:28 Current Medications Generic Name Dose Route Start Last Admin Trade Name Freq PRN Reason Stop Dose Admin Atorvastatin Calcium 40 mg 07/16/25 09:00 07/16/25 08:41 Atorvastatin 40 Mg Tablet PO 40 mg DAILY ALMITA Administration Calcitriol 0.25 mcg 07/16/25 09:00 07/16/25 08:42 Calcitriol 0.25 Mcg Capsule PO 0.25 mcg DAILY ALMITA Administration Carvedilol 12.5 mg 07/16/25 09:00 07/16/25 08:41 Carvedilol 25 Mg Tablet PO 12.5 mg BID ALMITA Administration Clopidogrel Bisulfate 75 mg 07/16/25 09:00 07/16/25 08:34 Clopidogrel 75 Mg Tablet PO Not Given DAILY ALMITA Hydralazine HCl 100 mg 07/16/25 09:00 07/16/25 07:37 Hydralazine 50 Mg Tablet PO 100 mg TID ALMITA Administration Piperacillin Sod/Tazobactam 50 mls @ 100 mls/hr 07/16/25 03:00 07/16/25 03:15 Sod 2.25 gm/ Sodium Chloride IV Infused Q12H ALMITA Infusion Nicardipine/Sodium Chloride 20 mg in 200 mls @ 0 mls/hr 07/16/25 01:45 07/16/25 03:45 Cardene IV 0 mg/hr .Q0M ALMITA 0 mls/hr Protocol Titration Per Protocol Heparin Sodium/Sodium Chloride 25,000 unit in 500 mls @ 0 mls/hr 07/16/25 04:00 07/16/25 11:25 Heparin Drip IV 0 unit/kg/hr CONT ALMITA 0 mls/hr Protocol Titration Per Protocol Lisinopril 40 mg 07/16/25 09:00 07/16/25 08:42 Lisinopril 20 Mg Tablet PO 40 mg DAILY ALMITA Administration Nifedipine 20 mg 07/16/25 09:00 07/16/25 08:42 Nifedipine 10 Mg Capsule PO 20 mg TID ALMITA Administration Pantoprazole Sodium 40 mg 07/16/25 09:00 07/16/25 08:39 Pantoprazole 40 Mg Sdv IVP 40 mg DAILY ALMITA Administration Sevelamer Carbonate 800 mg 07/16/25 09:00 07/16/25 08:40 Sevelamer 800 Mg Tablet PO 800 mg TID ALMITA Administration Sodium Bicarbonate 650 mg 07/16/25 09:00 07/16/25 08:40 Sodium Bicarbonate 650 Mg Tablet PO 650 mg BID ALMITA Administration PFSH Acute 2 PFSH: Medical History Sepsis Pleural effusion PAD (peripheral artery disease) Essential hypertension Peritoneal dialysis catheter in place Uncontrolled type 2 diabetes mellitus Anemia of chronic disease ESRD (end stage renal disease) Diabetic neuropathy, type II diabetes mellitus Diabetic retinopathy Bereavement Major depressive disorder, recurrent, in partial remission Psychiatric care FH: total knee replacement left HLA B27 (HLA B27 positive) High risk medication use Inflammatory arthritis Seronegative spondyloarthropathy Chronic insomnia See subjective note below. Chronic pain See subjective note below. Chronic post-traumatic stress disorder (PTSD) Generalized anxiety disorder Major depressive disorder, recurrent, moderate Surgical History History of cataract extraction History of hysterectomy for benign disease History of tonsillectomy History of appendectomy History of left knee replacement Family History Mother Hypertension Diabetes Psychiatric illness Thyroid disease Father , in his 50's Family history of premature coronary artery disease Hyperlipidemia Myocardial infarction Brother Hypertension Sister No problems noted. Denies family history of Rheumatoid arthritis Lupus Social History Smoking and tobacco/nicotine status: never used tobacco/nicotine Second hand smoke exposure: No Alcohol intake: never Substance/Drug Use: never Adopted: No Caregiver/support person: No Lives independently: No Household members: family service: No Current occupational status: unemployed and disabled Sexually active: Yes Do you think of yourself as: Straight/Heterosexual Current gender identity: Female Vitals/I&O/Wt Last Vital Signs Temp 98.5 F 07/16/25 07:55 Pulse 78 07/16/25 11:50 Resp 23 H 07/16/25 11:50 BP 154/77 07/16/25 11:50 Pulse Ox 97 07/16/25 11:50 O2 Del Method Nasal Cannula 07/16/25 07:55 O2 Flow Rate 3 07/16/25 07:55 07/15/25 07/16/25 07/16/25 22:59 06:59 14:59 Intake Total 923.333 / 923.333 176 / 176 Output Total 3500 / 3500 Balance -2576.667 / -2576.667 176 / 176 Weight last 48 hrs Weight 184 lb 1.376 oz Weight 192 lb 14.472 oz Weight 6.632 oz Physical Exam 2 Const: COMMON NORMALS: no acute distress and patient oriented x3 GENERAL APPEARANCE: cooperative and comfortable ORIENTATION/CONSCIOUSNESS: Yes awake, Yes oriented to person, Yes oriented to place and Yes oriented to time Chest: COMMONS NORMALS: normal inspection of the chest and normal palpation of entire chest wall CHEST: Yes Symmetrical chest wall rise Resp: COMMON NORMALS: normal respiratory effort, No retractions and No use of accessory muscles EFFORT & INSPECTION: Yes symmetric chest movement A USCULTATION: diminished lung sounds bilateral in the lower lung hackett Cardio: COMMON NORMALS: regular rate, regular rhythm, S1 normal heart sound present, S2 normal heart sound present, No gallops present (Cardio), No clicks present (Cardio), No murmurs present (Cardio) and No rub (Cardio) RATE: r egular rate RHYTHM: regular rhythm HEART SOUNDS: S1 normal heart sound present and S2 normal heart sound present PERIPHERAL PULSES: radial pulses present Extremity: COMMON NORMALS: no pedal edema Neuro: COMMON NORMALS: patient oriented x3 and moves all extremities S ENSORIUM/ORIENTATION: Yes oriented to person, Yes oriented to place and Yes oriented to time Urinary Catheter Management: Segal: Cath Placed During This Visit: yes Urinary Catheter Date of Insertion: 07/15/25 Data 07/16/25 02:24 07/16/25 02:24 Micro: Microbiology 07/15/25 23:20 Blood Culture - Preliminary Blood SPECIMEN COLLECTED 07/15/25 22:24 Blood Culture - Preliminary Blood SPECIMEN COLLECTED 07/15/25 17:44 Blood Culture - Preliminary Blood SPECIMEN COLLECTED 07/15/25 17:44 Blood Culture - Preliminary Blood SPECIMEN COLLECTED A&P Assessment and plan 1. Presence of stent in LAD coronary artery: 2. Diastolic heart failure: 3. Malignant hypertension: 4. ESRD (end stage renal disease) on dialysis: 5. Peritoneal dialysis catheter in place: 6. Anemia: 7. Dyspnea: Plan: Elevated troponin in the setting of ESRD and malignant hypertension, no chest pain, shortness of breath improved. Continue heparin infusion, will plan for stress test tomorrow. PDMP PDMP Reviewed: Not Reviewed Coding Level of Care Code Acute Code for Chg Fwd Diagnoses Presence of stent in LAD coronary artery Z95.5 Diastolic heart failure I50.30 Malignant hypertension I10 ESRD (end stage renal disease) on dialysis N18.6; Z99.2 [address]itoneal dialysis catheter in place Z99.2 Anemia D64.9 Dyspnea R06.00
--- NOTE | 2025-07-16 09:34 | ECG_ITS ---
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 Measurements Intervals [place] Rate: 73 P: 45 VA: 136 QRS: -53 QRSD: 83 T: 172 QT: 494 QTc: 546 Interpretive Statements SINUS RHYTHM PATTERN CONSISTENT WITH PULMONARY DISEASE LEFT ANTERIOR FASCICULAR BLOCK [QRS AXIS <= -45, QR IN I, RS IN II] MODERATE T-WAVE ABNORMALITY, CONSIDER LATERAL ISCHEMIA [-0.1+ mV T-WAVE IN I/aVL/V5/V6] Compared to ECG 07/16/2025 03:15:30 T-wave abnormality now present Possible ischemia now present Electronically Signed On 07-18-2025 09:01:40 CDT by Cornell Cisneros M.D. [email or web address]
[2025-07-16 11:32] LABS: Troponin 5 6HR 369.7 ng/L (0-10); Troponin 5 6HR Delta 63.7 ng/L (0-12)
--- NOTE | 2025-07-16 11:47 | ECG_ITS ---
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 Measurements Intervals [place] Rate: 77 P: 52 MD: 157 QRS: -57 QRSD: 82 T: 138 QT: 424 QTc: 481 Interpretive Statements SINUS RHYTHM LOW QRS VOLTAGE IN EXTREMITY LEADS [QRS DEFLECTION < 0.5 mV IN LIMB LEADS] PATTERN CONSISTENT WITH PULMONARY DISEASE LEFT ANTERIOR FASCICULAR BLOCK [QRS AXIS <= -45, QR IN I, RS IN II] ABNORMAL QRS-T ANGLE [QRS-T AXIS DIFFERENCE > 60] Compared to ECG 07/16/2025 09:34:53 Low QRS voltage now present T-wave abnormality no longer present Possible ischemia no longer present Electronically Signed On 07-18-2025 09:01:23 CDT by Cornell Cisneros M.D. [email or web address] [id number]
[2025-07-16 12:23] LABS: Partial Thromboplastin Time 59.1 SECONDS (23.9-36.7)
--- NOTE | 2025-07-16 15:13 | PM.PN ---
Subjective Subjective: SOB improved after hD Medications: Reviewed: Yes Vitals/I&O/Wt Last Vital Signs Temp 98.5 F 07/16/25 07:55 Pulse 78 07/16/25 11:50 Resp 23 H 07/16/25 11:50 BP 154/77 07/16/25 11:50 Pulse Ox 97 07/16/25 11:50 O2 Del Method Nasal Cannula 07/16/25 07:55 O2 Flow Rate 3 07/16/25 07:55 07/16/25 07/16/25 07/16/25 06:59 14:59 22:59 Intake Total 923.333 / 923.333 176 / 176 Output Total 3500 / 3500 Balance -2576.667 / -2576.667 176 / 176 Weight last 48 hrs Weight 83.5 kg Weight 87.5 kg Weight 188 g Physical Exam Narrative: Patient sitting up . HEENT normocephalic atraumatic neck is supple positive JVP Right sided permacath lungs have dull bases. Right PleurX catheter. Heart positive S1-S2. Abdomen is soft positive bowel sounds positive left-sided peritoneal dialysis catheter. Extremities 1+ edema. Neuro awake and alert oriented x 3. Urinary Catheter Management: Segal: Cath Placed During This Visit: yes Urinary Catheter Date of Insertion: 07/15/25 Data 07/16/25 02:24 07/16/25 02:24 Micro: Microbiology 07/15/25 07:30 Gram Stain - Final Peritoneal Fluid 07/15/25 23:20 Blood Culture - Preliminary Blood SPECIMEN COLLECTED 07/15/25 22:24 Blood Culture - Preliminary Blood SPECIMEN COLLECTED 07/15/25 17:44 Blood Culture - Preliminary Blood SPECIMEN COLLECTED 07/15/25 17:44 Blood Culture - Preliminary Blood SPECIMEN COLLECTED A&P Assessment and plan 1. ESRD (end stage renal disease) on dialysis: 54-year-old lady diabetes hypertension heart failure preserved EF, peripheral tibial disease pleural effusions recurrent s/p PleurX cathete placement few weeks ago -- > presented due to PleurX catheter is not draining. Patient has ESRD she was supposed to be transition to hemodialysis she is back on peritoneal dialysis. Patient had a recent similar admission where she improved with hemodialysis. Patient now presents with volume overload hypertension shortness of breath. 1. ESRD : Status post hemodialysis last night, patient having recurrent admissions due to volume overload and also patient reports that PD fluid drainage has decreased. Discussed with patient's tag and label cutter Dr. Gonzales and also discussed with patient, at this point plan to transition to in center hemodialysis permanently and remove PD catheter. HD tomorrow 2. Acute on chronic respiratory failure, history of recurrent pleural effusion. Has pleurx catheter 3. HTN: bP elevated 4. Anemia : hb 9.7 , will ordsr Epogen Plan: Will provide hemodialysis today. PDMP PDMP Reviewed: Not Reviewed Attestations Medical Necessity Statement*: per medicine Coding Level of Care Code Acute Code for Chg Fwd Diagnoses ESRD (end stage renal disease) on dialysis N18.6; Z99.2
--- NOTE | 2025-07-16 16:05 | P.PN_ITS ---
Subjective 2 Subjective: Admitted overnight. H&P and labs appreciated. Examination patient laying comfortably in bed. States breathing is a lot better now. Currently on 2 L of oxygen supplementation saturating more than 95%. Hemodynamically stable. Denies any chest pain. Denies any abdominal pain. Has been using peritoneal dialysis as an outpatient. States he for last couple of weeks her output of PD fluid has been lower than her input. Denies any changes in color or odor of the peritoneal fluid. Denies any chest pain. Has not been on Plavix since Tuesday. Today is Tuesday. Plavix was discontinued as per instructions for pulmonary team for removal of PleurX catheter. Has been complaining of difficulty in breathing getting worse mostly on exertion and laying down for last 3 to 4 days. Vitals/I&O/Wt Last Vital Signs Temp 98.5 F 07/16/25 07:55 Pulse 83 07/16/25 15:25 Resp 23 H 07/16/25 15:25 BP 161/88 07/16/25 15:25 Pulse Ox 98 07/16/25 15:25 O2 Del Method Nasal Cannula 07/16/25 12:10 O2 Flow Rate 2 07/16/25 12:10 07/16/25 07/16/25 07/16/25 06:59 14:59 22:59 Intake Total 923.333 / 923.333 176 / 176 Output Total 3500 / 3500 Balance -2576.667 / -2576.667 176 / 176 Weight last 48 hrs Weight 83.5 kg Weight 87.5 kg Weight 188 g Physical Exam 2 Narrative: General: Alert and oriented, lying with mild to moderate distress due to shortness of breath. However able to speak in full sentences HEENT: Normocephalic, atraumatic, grossly unremarkable exam Cardio: Sinus tachycardia, normal S1-S2 without any murmurs, rubs, or gallops. Respiratory: Normal vesicular breathing without any wheezes or stridor however having bibasal inspiratory crepitations up to mid zone and wet cough GI: Abdomen soft, nontender, nondistended, normoactive bowel sounds present all 4 quadrants, Neuro: intact cranial nerves motor and sensory and cerebellar/coordination function without any focal neurological deficit Behavior: Appropriate and cooperative Extremities: 3+ pedal edema reaching above knees, adequate capillary refill present Urinary Catheter Management: Segal: Cath Placed During This Visit: yes Urinary Catheter Date of Insertion: 07/15/25 Data 07/16/25 02:24 07/16/25 02:24 Micro: Microbiology 07/15/25 07:30 Gram Stain - Final Peritoneal Fluid 07/15/25 23:20 Blood Culture - Preliminary Blood SPECIMEN COLLECTED 07/15/25 22:24 Blood Culture - Preliminary Blood SPECIMEN COLLECTED 07/15/25 17:44 Blood Culture - Preliminary Blood SPECIMEN COLLECTED 07/15/25 17:44 Blood Culture - Preliminary Blood SPECIMEN COLLECTED A&P Assessment and plan 1. Acute hypoxemic respiratory failure: Most likely in setting of congestive heart failure. Less likely due to pleural fluid. CT chest results awaited. Though clinically patient does not seem to have pleural fluid. Pulmonary team on board. Most likely will discontinue PleurX catheter today if no significant pleural effusion on CT. Most likely in setting of insufficient dialysis due to PD dialysis. Patient is agreeable to transition to hemodialysis if needed. Will confirm with nephrology team. Cannot rule out unstable angina though less likely. Patient had cardiac angiogram and PCI back in 12/11. Seems to be compliant with medications. Discontinued Plavix 3 days ago for PleurX catheter removal. Oxygen supplementation keeping saturation over 90%. 2. Sepsis: Patient is having severe sepsis, with leukocytosis and tachypnea and hypoxemia Not in shock. Normal lactate and adequate perfusion Follow-up blood culture. Follow-up peritoneal fluid studies and Gram stain and culture. Check MRSA swab. Continue with empiric IV vancomycin and Zosyn for now. Will discontinue vancomycin if MRSA swab negative. 3. Malignant hypertension: Goal blood pressure less than 140/90 mmHg. Blood pressure stable for now. Continue with home dose of Coreg, hydralazine, lisinopril, nifedipine. Needed nicardipine overnight. Currently blood pressure stable. Nicardipine discontinued. 4. Pulmonary edema: As above. 5. Recurrent right pleural effusion: Appreciate pulmonary team recommendations. Plan for removal of PleurX catheter. 6. Presence of stent in LAD coronary artery: Appreciate troponin cycled. Delta troponin more than 16 6 hours. Patient denies any active chest pain. Non-ST elevation less likely. Most likely type II WI. For now continue with heparin drip. Awaiting cardiology recommendations. Continue with baby aspirin, statin. Restart Plavix from a.m. after PleurX catheter. Check echocardiogram. 7. PAD (peripheral artery disease): Patient on aspirin and clopidogrel and statins Patient need medication confirmation reconciliation before resuming home medications 8. Peritonitis due to infected peritoneal dialysis catheter, subsequent encounter: Likely. Follow-up fluid studies as above. Antibiotics as above. 9. Inflammatory arthritis: Continue home dose duloxetine and other analgesics after reconciliation Plan: Full code Renal dialysis diet. Protonix for PUD prophylaxis Heparin drip will be sufficient for DVT prophylaxis PDMP PDMP Reviewed: Not Reviewed Attestations 2 Medical Necessity Statement*: Requires further hospitalization for management of acute hypoxic respiratory failure in setting of congestive heart failure due to insufficient dialysis, sepsis while PD peritonitis is ruled out, non-ST elevation WI is ruled out Diagnoses Acute hypoxemic respiratory failure J96.01 Sepsis A41.9 Malignant hypertension I10 Pulmonary edema J81.1 Recurrent right pleural effusion J90 Presence of stent in LAD coronary artery Z95.5 PAD (peripheral artery disease) I73.9 Peritonitis due to infected peritoneal dialysis catheter, subsequent encounter T85.71XD; K65.9 Encounter type: subsequent encounter Inflammatory arthritis M19.90
--- NOTE | 2025-07-16 16:06 | ECG_ITS ---
[facility] acquired by [employer] Test Date: 2025-07-17 Pat Name: Lizy Evans Department: Room: ICU12 Gender: Female Business Proposal Rep: : 1970 Requested By: Reshma Stacy Order Number: [id number] Herson MD: Chandrakant Hinojosa M.D. Interpretive Statements Lung unchanged pre/post procedure; Intraprocedure shortess of breath; Symptoms resoled by discharge PROCEDURE: At the baseline, the EKG revealed normal sinus rhythm with a poor R wave progression. T inversions in the high lateral leads. The baseline heart was 73 bpm with a blood pressue of 111/60 mm of Hg Lexiscan was infused over a period of 20 seconds. A total of 0.4 milligrams of Lexiscan was infused. The stress phase was continued for a total of 5 minutes. Heart rate at the end of the stress phase was 76 bpm with a blood pressure 110/56 mm of Hg. The EKG at the peak infusion revealed no significant changes. Sestamibi was injected 20 seconds after the Lexiscan infusion. Heart rate at the end of the recovery phase was 75 bpm with a blood pressure of 114/55 mm of Hg. CONCLUSION: 1. No significant EKG changes with the LexiScan infusion 2. No LexiScan induced chest pain or cardiac arrhythmia 3. Normal blood pressure and heart rate response 4. Sestamibi/sestamibi perfusion scan pending; see separate report. Electronically Signed On 07-21-2025 21:11:17 CDT by Chandrakant Hinojosa M.D. [id number]
[2025-07-16 16:19] LABS: Apprearance, Body Fluid CLOUDY; Color, Body Fluid YELLOW; Cyto Order Verification Order Verified; PATH Referral YES
[2025-07-16 16:29] LABS: Body Fluid Polynuclear #Cells 0.047; Monocytes # Body Fluid 0.312; Mononuclear WBC Body Fluid % 86.900 %; Polynuclear WBC Body Fluid % 13.100 %
[2025-07-16] MEDS: lidocaine-epi 1% 20 mL INJ INJECTION (16:38)
[2025-07-16 16:43] LABS: Fluid Laterality PERITONEAL FLUID
[2025-07-16 17:12] LABS: Fluid Alkaline Phos. 15 IU/L
--- NOTE | 2025-07-16 17:36 | PM.CONSULT ---
Providers/Reason For Consult Consulting Physician/Specialty*: General Surgery Reason for Consult*: Dialysis catheter removal Attending Physician: Lawson Diaz MD Primary Care Provider: SEGUN Mulligan History of Present Illness History of Present Illness Lizy Evans is a 54 year old female who presents to the hospital with shortness of breath. She has history of end-stage renal disease has been receiving peritoneal dialysis and also has a hemodialysis catheter on the right IJ that was placed in our institution. She was noted to have worsening kidney failure and will need to transition to hemodialysis, in addition to that she has suspected bacterial peritonitis due to the peritoneal dialysis catheter. I have been requested to remove the catheter. Review of Systems General: Reports: 10 or more systems reviewed and unremarkable except in HPI and below Medications/Allergies Home Medications ?Medication ?Instructions ?Recorded ?Confirmed ?Last Taken ?Type omeprazole 20 mg capsule,delayed 20 mg PO DAILY 04/06/24 07/16/25 06/26/25 History release cetirizine 10 mg tablet 10 mg PO DAILY PRN Allergy Symptoms 05/23/24 07/16/25 06/26/25 History calcitriol 0.25 mcg capsule 0.25 mcg PO DAILY 10/30/24 07/16/25 06/26/25 History vit B,C-folic ac 800 mcg-zinc 12.5 1 tab PO DAILY 10/30/24 07/16/25 06/26/25 History mg-selen-D3 2,000 unit-vit E tablet (RenaPlex-D) sevelamer carbonate 800 mg tablet 800 mg PO TID 12/07/24 07/16/25 06/26/25 History torsemide 100 mg tablet 100 mg PO DAILY 12/07/24 07/16/25 06/26/25 History blood-glucose sensor (FreeStyle #2 ea 02/12/25 07/16/25 Unknown Rx Palak 3 Plus Sensor device) aspirin 81 mg capsule 81 mg PO DAILY #90 caps 02/18/25 07/16/25 06/26/25 Rx clopidogrel 75 mg tablet 75 mg PO DAILY #90 tabs 02/18/25 07/16/25 06/21/25 Rx nifedipine 60 mg tablet,extended 60 mg PO DAILY 03/20/25 07/16/25 06/26/25 History release duloxetine 30 mg capsule,delayed 30 mg PO .q am #30 caps 04/16/25 07/16/25 06/26/25 Rx release sodium bicarbonate 650 mg tablet 650 mg PO BID 04/16/25 07/16/25 06/26/25 History diabetic shoes with 3 inserts #1 ea 04/18/25 07/16/25 Unknown Rx atorvastatin 40 mg tablet 40 mg PO DAILY 06/26/25 07/16/25 06/26/25 History hydralazine 50 mg tablet 100 mg PO TID 06/26/25 07/16/25 06/26/25 History lisinopril 40 mg tablet 40 mg PO DAILY 06/26/25 07/16/25 06/25/25 History albuterol sulfate 90 mcg/actuation 1 puff inhalation BID PRN 06/28/25 07/16/25 Unknown History aerosol inhaler Shortness Of Breath Or Wheezing gentamicin 0.1 % topical cream See Rx Instructions .Route .COMPLEX 06/28/25 07/16/25 Unknown History ondansetron 4 mg disintegrating 4 mg PO Q6H PRN Nausea And Vomiting 06/28/25 07/16/25 Unknown History tablet carvedilol 25 mg tablet 12.5 mg (1/2 x 25 mg) PO BID 30 07/01/25 07/16/25 Unknown Rx days #30 tabs insulin aspart U-100 100 unit/mL See Rx Instructions .Route 07/12/25 07/16/25 Unknown Rx (3 mL) subcutaneous pen (Novolog .COMPLEX #15 mL FlexPen U-100 Insulin aspart) Allergies Allergy/AdvReac Type Severity Reaction Status Date / Time venom-honey bee Allergy Severe ALGY-Redness Verified 07/15/25 16:28 of Skin marijuana (cannabis) Allergy Intermediate ADR-Nausea Verified 07/15/25 16:28 codeine AdvReac Severe ADR-Vomitin Verified 07/15/25 16:28 g morphine AdvReac Severe ADR-Vomitin Verified 07/15/25 16:28 g propoxyphene (From AdvReac Severe ADR-Vomitin Verified 07/15/25 16:28 Darvocet-N) g latex AdvReac Intermediate ALGY-Rash Verified 07/15/25 16:28 Current Medications Generic Name Dose Route Start Last Admin Trade Name Freq PRN Reason Stop Dose Admin Aspirin 81 mg 07/16/25 09:00 07/16/25 17:17 Aspirin 81 Mg Ec Tablet PO Not Given DAILY ALMITA Atorvastatin Calcium 40 mg 07/16/25 09:00 07/16/25 08:41 Atorvastatin 40 Mg Tablet PO 40 mg DAILY ALMITA Administration Calcitriol 0.25 mcg 07/16/25 09:00 07/16/25 08:42 Calcitriol 0.25 Mcg Capsule PO 0.25 mcg DAILY ALMITA Administration Carvedilol 12.5 mg 07/16/25 09:00 07/16/25 08:41 Carvedilol 25 Mg Tablet PO 12.5 mg BID ALMITA Administration Clopidogrel Bisulfate 75 mg 07/16/25 09:00 07/16/25 08:34 Clopidogrel 75 Mg Tablet PO Not Given On Hold: 07/16/25 16:54 DAILY ALMITA Hydralazine HCl 100 mg 07/16/25 09:00 07/16/25 15:35 Hydralazine 50 Mg Tablet PO 100 mg TID ALMITA Administration Piperacillin Sod/Tazobactam 50 mls @ 100 mls/hr 07/16/25 03:00 07/16/25 17:17 Sod 2.25 gm/ Sodium Chloride IV Infused Q12H ALMITA Infusion Heparin Sodium/Sodium Chloride 25,000 unit in 500 mls @ 0 mls/hr 07/16/25 04:00 07/16/25 11:25 Heparin Drip IV 0 unit/kg/hr CONT ALMITA 0 mls/hr Protocol Titration Per Protocol Lisinopril 40 mg 07/16/25 09:00 07/16/25 08:42 Lisinopril 20 Mg Tablet PO 40 mg DAILY ALMITA Administration Nifedipine 20 mg 07/16/25 09:00 07/16/25 15:35 Nifedipine 10 Mg Capsule PO 20 mg TID ALMITA Administration Pantoprazole Sodium 40 mg 07/16/25 09:00 07/16/25 08:39 Pantoprazole 40 Mg Sdv IVP 40 mg DAILY ALMITA Administration Sevelamer Carbonate 800 mg 07/16/25 09:00 07/16/25 15:36 Sevelamer 800 Mg Tablet PO 800 mg TID ALMITA Administration Sodium Bicarbonate 650 mg 07/16/25 09:00 07/16/25 17:16 Sodium Bicarbonate 650 Mg Tablet PO 650 mg BID ALMITA Administration PFSH Acute PFSH: Medical History Sepsis Pleural effusion PAD (peripheral artery disease) Essential hypertension Peritoneal dialysis catheter in place Uncontrolled type 2 diabetes mellitus Anemia of chronic disease ESRD (end stage renal disease) Diabetic neuropathy, type II diabetes mellitus Diabetic retinopathy Bereavement Major depressive disorder, recurrent, in partial remission Psychiatric care FH: total knee replacement left HLA B27 (HLA B27 positive) High risk medication use Inflammatory arthritis Seronegative spondyloarthropathy Chronic insomnia See subjective note below. Chronic pain See subjective note below. Chronic post-traumatic stress disorder (PTSD) Generalized anxiety disorder Major depressive disorder, recurrent, moderate Surgical History History of cataract extraction History of hysterectomy for benign disease History of tonsillectomy History of appendectomy History of left knee replacement Family History Mother Hypertension Diabetes Psychiatric illness Thyroid disease Father , in his 50's Family history of premature coronary artery disease Hyperlipidemia Myocardial infarction Brother Hypertension Sister No problems noted. Denies family history of Rheumatoid arthritis Lupus Social History Smoking and tobacco/nicotine status: never used tobacco/nicotine Second hand smoke exposure: No Alcohol intake: never Substance/Drug Use: never Adopted: No Caregiver/support person: No Lives independently: No Household members: family service: No Current occupational status: unemployed and disabled Sexually active: Yes Do you think of yourself as: Straight/Heterosexual Current gender identity: Female Vitals/I&O/Wt Last Vital Signs Temp 98.5 F 07/16/25 07:55 Pulse 83 07/16/25 15:25 Resp 23 H 07/16/25 15:25 BP 161/88 07/16/25 15:25 Pulse Ox 98 07/16/25 15:25 O2 Del Method Nasal Cannula 07/16/25 12:10 O2 Flow Rate 2 07/16/25 12:10 07/16/25 07/16/25 07/16/25 06:59 14:59 22:59 Intake Total 923.333 / 923.333 176 / 176 50 / 226 Output Total 3500 / 3500 Balance -2576.667 / -2576.667 176 / 176 50 / 226 Weight last 48 hrs Weight 184 lb 1.376 oz Weight 192 lb 14.472 oz Weight 6.632 oz Physical Exam GI: OTHER: Benign abdominal exam there is a peritoneal dialysis catheter in place. Urinary Catheter Management: Segal: Cath Placed During This Visit: yes Urinary Catheter Date of Insertion: 07/15/25 Data 07/16/25 02:24 07/16/25 02:24 Micro: Microbiology 07/15/25 07:30 Gram Stain - Final Peritoneal Fluid 07/15/25 23:20 Blood Culture - Preliminary Blood SPECIMEN COLLECTED 07/15/25 22:24 Blood Culture - Preliminary Blood SPECIMEN COLLECTED 07/15/25 17:44 Blood Culture - Preliminary Blood SPECIMEN COLLECTED 07/15/25 17:44 Blood Culture - Preliminary Blood SPECIMEN COLLECTED A&P Assessment and plan 1. Sepsis: 2. Peritonitis due to infected peritoneal dialysis catheter: Plan: After complete history physical examination and review of all available clinical data I agreed to proceed with removal of peritoneal dialysis catheter. I discussed with the patient all risk benefits of the procedure including the risk of needing laparoscopy to remove the intraperitoneal portion of the catheter, need for additional operations, bleeding, infection, injury to adjacent structures including intestine. Patient shows understanding agrees to proceed. She will be kept n.p.o. after midnight, will stop the heparin drip at 6 AM tomorrow. PDMP PDMP Reviewed: Not Reviewed Coding Level of Care Code Acute Code for [facility] Diagnoses Sepsis A41.9 Peritonitis due to infected peritoneal dialysis catheter T85.71XA; K65.9
--- NOTE | 2025-07-16 17:39 | P.PCN_ITS ---
Procedure/Consent Time out: Time Out Performed: Yes Consent: Consent for Procedure: Consent obtained from patient Procedure Narrative: Procedure Note: Left PleurX Catheter Removal Pre-procedure imaging: CT chest from today demonstrated minimal residual right pleural effusion. A moderate left pleural effusion was noted. Approximately 20 cc of pleural fluid was aspirated prior to removal. History: The patient reported minimal drainage output from the right PleurX catheter over the past several sessions/2 weeks. Anesthesia: Local anesthesia achieved with 20 cc of 1% lidocaine combined with epinephrine infiltration after sterile preparation and draping. Procedure: After sterile preparation and draping, a straight and curved Deloris clamp were used to carefully dissect around the catheter cuff. With gentle, steady traction, the PleurX catheter was successfully removed. The exit site was dressed with petroleum gauze, dry sterile gauze, and secured with Tegaderm for occlusive coverage. Minimal blood loss (<2 cc). The patient tolerated the procedure well without complications. CPT Code: 65479 ? Removal of indwelling tunneled p leural catheter with cuff. Geri Villarreal MD, FACP, FASN Interventional Pulmonary Acute Procedures Epistaxis Control: Time out performed: Yes
--- NOTE | 2025-07-16 18:40 | PC.NURSE ---
Pleurx drain removal..... At 1615, nurse assisted Dr Villarreal with removal of pleurx drain. Patint became hypotensive during procedure, but it was brief and patient was asymptomatic. Recovered quickly without any intervention.
--- NOTE | 2025-07-16 18:41 | PC.NURSE ---
Shift SUmmary: Uneventful shift. Pleurx drain removed without complication. Peritoneal dialysis line scheduled to be removed around 12 noon tommorow Stress test in the morning. Hemodialysis tommorow morning. NPO at midnight. Heparing to be turned off at 6am.
--- NOTE | 2025-07-16 22:49 | USCV_ITS ---
Lizy Evans Age: 54 Gender: F : 1970 Exam Date: 07/16/2025 09:59 Ordering Phys: Melyssa Neff MD Technologist: APARNA [place] [facility] [place] SoB BP: 118 / 59 HR: 73 Rhythm: Sinus Technical Quality: Adequate MEASUREMENTS (Male / Female) Normal Values 2D ECHO LV Diastolic Diameter PLAX 4.2 cm 4.2 - 5.9 / 3.9 - 5.3 cm IVS Diastolic Thickness 1.3 cm 0.6 - 1.0 / 0.6 - 0.9 cm IVS Systolic Thickness 1.8 cm LVPW Diastolic Thickness 1.5 cm 0.6 - 1.0 / 0.6 - 0.9 cm LVPW Systolic Thickness 1.8 cm LVOT Diameter 2.0 cm LV Ejection Fraction 2D Teich 57.0 % LV Ejection Fraction MOD 4C 54.3 % LV Ejection Fraction MOD 2C 59.4 % LV Ejection Fraction 2C AL 60.1 % LA Diameter 3.9 cm RA Systolic Volume 4C AL 48.3 ml RA Systolic Volume 4C MOD 46.2 ml LA Sys Volume AL 87.4 cm cubed LA Sys Volume Index AL 44.3 cm cubed/m squared Aorta at Sinotubular Diameter 2.3 cm DOPPLER AV Peak Velocity 185.0 cm/s LVOT Peak Velocity 103.0 cm/s AV Area Cont Eq vti 1.9 cm squared AV Area Cont Eq pk 1.8 cm squared MV Peak Velocity 124.0 cm/s MV Area PHT 4.5 cm squared Mitral E to A Ratio 1.1 TV Peak E Velocity 88.0 cm/s PV Peak Velocity 111.0 cm/s FINDINGS Left Ventricle Left ventricular is normal in size. LV systolic function is normal with EF of 55-60%. No regional wall motion abnormalities. Moderate left ventricular hypertrophy. Right Ventricle Normal in size and function Right Atrium Normal in size Left Atrium Dilated Mitral Valve Structurally normal mitral valve. Mild mitral regurgitation. Aortic Valve Thickened aortic valve. No significant stenosis or regurgitation. Tricuspid Valve Insufficient TR jet to calculate RVSP Pulmonic Valve Not well visualized Pericardium Normal Aorta Normal in size IVC Not well visualized CONCLUSIONS LV systolic function is normal with EF of 55-60% Moderate left ventricular hypertrophy Left atrial dilation Mild mitral regurgitation. Cornell Cisneros MD (Electronically Signed) Final Date: 16 July 2025 12:11 S
[2025-07-16 23:56] LABS: MRSA PCR OZH (swab) NOT DETECTED (Not Detecte)
[2025-07-17] VITALS (42 sets, daily range): BP systolic 95–169; BP diastolic 56–115; PULSE 72–86; RESP 12–24; TEMP 36.5–37.3; O2SAT 93–99
[2025-07-17 00:52] LABS: Hematocrit 26.4 % (36-47); Hemoglobin 8.10 g/dL (11.27-16.99); Mean Corpuscular HGB Conc 30.7 g/dL (30-55); Mean Corpuscular Hemoglobin 26.5 pg (27-33); Mean Corpuscular Volume 86.3 fl (85-98); Nucleated Red Blood Cells % 0 %; Platelet Count 458 10^3/cmm (157-399); Red Blood Count 3.06 10^6/uL (3.85-5.65); White Blood Count 7.81 10^3/uL (3.29-11.43)
[2025-07-17 00:58] LABS: Partial Thromboplastin Time 67.9 SECONDS (23.9-36.7)
[2025-07-17 01:02] LABS: Alanine Aminotransferase 8 U/L (0-33); Albumin Level 3.0 g/dL (3.5-5.2); Alkaline Phosphatase 70 U/L (35-105); Anion Gap 21.6 (5-19); Aspartate Amino Transferase 14 U/L (0-32); Blood Urea Nitrogen 44 mg/dL (6-20); Calcium 8.6 mg/dL (8.5-10.5); Carbon Dioxide 23 mmol/L (22-29); Chloride 97 mmol/L (98-107); Cholesterol 92 mg/dL (0-200); Creatinine Clr Calc Pharmacy 11.3952; Globulin 3.7 g/dL (1.3-4.6); Glucose 177 mg/dL (65-115); HDL Cholesterol 39 mg/dL (60-100); Magnesium 2.0 mg/dL (1.7-2.3); Osmolality Calculated 300 mOsm/kg (285-295); Potassium 4.6 mmol/L (3.5-5.1); Sodium 137 mmol/L (136-145); Total Protein 6.7 g/dL (6.6-8.7); Triglycerides 89 mg/dL (0-150); VLDL Cholestrol Calculation 18 mg/dL (0-30)
[2025-07-17] MEDS: piperacillin-tazobactam 2.25 GM in sodium chloride 0.9% (plus) 50 ML IV ×2 (04:27→17:06)
[2025-07-17] MEDS: pantoprazole 40 mg SDV IVP (04:27)
--- NOTE | 2025-07-17 07:19 | PC.NURSE ---
To Nuclear med via wheelchair for stress test.
--- NOTE | 2025-07-17 08:57 | PC.NURSE ---
Returned from stress test, v/s stable, no reports of chest pain or discomfort. Cardiology, RETAIL CASHIER ASSOCIATE to bedside.
--- NOTE | 2025-07-17 09:00 | PM.PN ---
Subjective Subjective: No events overnight, had stress test this morning. No chest pain. Lung sounds diminished on the right, crackles on the left. Vitals/I&O/Wt Last Vital Signs Temp 99.1 F 07/17/25 07:00 Pulse 75 07/17/25 08:30 Resp 17 07/17/25 07:00 BP 115/56 07/17/25 08:30 Pulse Ox 94 07/17/25 07:00 O2 Del Method Nasal Cannula 07/17/25 07:00 O2 Flow Rate 4 07/17/25 07:00 07/16/25 07/17/25 07/17/25 22:59 06:59 14:59 Intake Total 50 / 554 328 / 554 Balance 50 / 554 328 / 554 Weight last 48 hrs Weight 185 lb 3.013 oz Weight 184 lb 1.376 oz Weight 192 lb 14.472 oz Weight 6.632 oz Physical Exam Const: COMMON NORMALS: no acute distress and patient oriented x3 GENERAL APPEARANCE: cooperative and comfortable ORIENTATION/CONSCIOUSNESS: Yes awake, Yes oriented to person, Yes oriented to place and Yes oriented to time Chest: COMMONS NORMALS: normal inspection of the chest and normal palpation of entire chest wall CHEST: Yes Symmetrical chest wall rise Resp: COMMON NORMALS: normal respiratory effort, No retractions and No use of accessory muscles EFFORT & INSPECTION: Yes symmetric chest movement AUSCULTATION: crackles Laterality: left and posterior and diminished lung sounds on the right Cardio: COMMON NORMALS: regular rate, regular rhythm, S1 normal heart sound present, S2 normal heart sound present, No gallops present (Cardio), No clicks present (Cardio), No murmurs present (Cardio) and No rub (Cardio) RATE: regular rate RHYTHM: regular rhythm HEART SOUNDS: S1 normal heart sound present and S2 normal heart sound present PERIPHERAL PULSES: radial pulses present Extremity: COMMON NORMALS: no pedal edema Neuro: COMMON NORMALS: patient oriented x3 and moves all extremities SENSORIUM/ORIENTATION: Yes oriented to person, Yes oriented to place and Yes oriented to time Urinary Catheter Management: Segal: Cath Placed During This Visit: yes Reason for Continuing Indwelling Catheter: Accurate Measurement of Urinary Output in Critically Ill Patients Urinary Catheter Date of Insertion: 07/15/25 Data 07/17/25 00:33 07/17/25 00:33 Micro: Microbiology 07/15/25 23:20 Blood Culture - Preliminary Blood NEGATIVE TO DATE 07/15/25 22:24 Blood Culture - Preliminary Blood NEGATIVE TO DATE 07/15/25 17:44 Blood Culture - Preliminary Blood NEGATIVE TO DATE 07/15/25 17:44 Blood Culture - Preliminary Blood NEGATIVE TO DATE 07/15/25 07:30 Gram Stain - Final Peritoneal Fluid A&P Assessment and plan 1. Diastolic heart failure: 2. CHF (congestive heart failure): 3. Presence of stent in LAD coronary artery: 4. Malignant hypertension: 5. Hyperlipidemia: 6. ESRD (end stage renal disease) on dialysis: 7. Anemia: Plan: She is breathing better, blood pressure better controlled with additions made by hospitalist service. Continue nifedipine, hydralazine, carvedilol, lisinopril, aspirin, Plavix, atorvastatin. HD planned today, as well as removal of PD catheter. PDMP PDMP Reviewed: Not Reviewed Attestations Medical Necessity Statement*: ischemic workup with stress test, volume overloaded HD today Coding Level of Care Code Acute Code for [facility] Fwd Diagnoses Diastolic heart failure I50.30 CHF (congestive heart failure) I50.9 Presence of stent in LAD coronary artery Z95.5 Malignant hypertension I10 Hyperlipidemia E78.5 ESRD (end stage renal disease) on dialysis N18.6; Z99.2 Anemia D64.9
--- NOTE | 2025-07-17 09:04 | PC.SOCIAL ---
IMM Update pg 2 of IMM Updated and reviewed w/ patient. Copy provided and copy dated, initialed and placed in chart.
--- NOTE | 2025-07-17 09:16 | P.PN_ITS ---
Subjective 2 Subjective: s/p stress test this AM Medications: Reviewed: Yes Vitals/I&O/Wt Last Vital Signs Temp 99.1 F 07/17/25 07:00 Pulse 75 07/17/25 08:30 Resp 17 07/17/25 07:00 BP 115/56 07/17/25 08:30 Pulse Ox 94 07/17/25 07:00 O2 Del Method Nasal Cannula 07/17/25 07:00 O2 Flow Rate 4 07/17/25 07:00 07/16/25 07/17/25 07/17/25 22:59 06:59 14:59 Intake Total 50 / 226 328 / 554 Balance 50 / 226 328 / 554 Weight last 48 hrs Weight 84 kg Weight 83.5 kg Weight 87.5 kg Weight 188 g Physical Exam 2 Narrative: Patient sitting up . HEENT normocephalic atraumatic neck is supple positive JVP Right sided permacath lungs have dull bases. Right PleurX catheter. Heart positive S1-S2. Abdomen is soft positive bowel sounds positive left-sided peritoneal dialysis catheter. Extremities 1+ edema. Neuro awake and alert oriented x 3. Urinary Catheter Management: Segal: Cath Placed During This Visit: yes Reason for Continuing Indwelling Catheter: Accurate Measurement of Urinary Output in Critically Ill Patients Urinary Catheter Date of Insertion: 07/15/25 Data 07/17/25 00:33 07/17/25 00:33 Micro: Microbiology 07/15/25 23:20 Blood Culture - Preliminary Blood NEGATIVE TO DATE 07/15/25 22:24 Blood Culture - Preliminary Blood NEGATIVE TO DATE 07/15/25 17:44 Blood Culture - Preliminary Blood NEGATIVE TO DATE 07/15/25 17:44 Blood Culture - Preliminary Blood NEGATIVE TO DATE 07/15/25 07:30 Gram Stain - Final Peritoneal Fluid A&P Assessment and plan 1. ESRD (end stage renal disease) on dialysis: 54-year-old lady diabetes hypertension heart failure preserved EF, peripheral tibial disease pleural effusions recurrent s/p PleurX cathete placement few weeks ago -- > presented due to PleurX catheter is not draining. Patient has ESRD she was supposed to be transition to hemodialysis she is back on peritoneal dialysis. Patient had a recent similar admission where she improved with hemodialysis. Patient now presents with volume overload hypertension shortness of breath. 1. ESRD : Status post hemodialysis on dipti , patient having recurrent admissions due to volume overload and also patient reports that PD fluid drainage has decreased. Discussed with patient's film sound coordinator Dr. Gonzales and also discussed with patient, at this point plan to transition to in center hemodialysis permanently and remove PD catheter. HD today 2. Acute on chronic respiratory failure, history of recurrent pleural effusion. Has pleurx catheter 3. HTN: bP elevated 4. Anemia : hb 9.7 , will ordsr Epogen Plan: Will provide hemodialysis today. PDMP PDMP Reviewed: Not Reviewed Attestations 2 Medical Necessity Statement*: PER MEDICINE Coding Level of Care Code Acute Code for [facility]wd Diagnoses ESRD (end stage renal disease) on dialysis N18.6; Z99.2
--- NOTE | 2025-07-17 10:56 | ANES.PREANE2 ---
Pre-Anesthetic Assessment Height/Weight: Height 5 ft 4 in Weight 185 lb 3.013 oz Temp Pulse Resp BP Pulse Ox O2 Del Method O2 Flow Rate 99.1 F 75 14 129/65 95 Nasal Cannula 2 07/17/25 07:00 07/17/25 10:00 07/17/25 10:00 07/17/25 10:00 07/17/25 10:00 07/17/25 10:00 07/17/25 10:00 Preop Diagnosis: Sepsis Operation Date: 07/17/25 11:50 Proposed Procedures p Peritoneal Catheter Removal(Not Applicable) - Brady Magana MD Was Beta Le taken within 24 hours: Yes Was Clonidine taken within 24 hours: N/A Social No alcohol and No tobacco Exam alert and oriented x 3 Airway Submandibular: within normal limits Cervical ROM: within normal limits Mallampati: Class II Dentition: full Comments: Comments: On 2 L nasal cannula Anesthetic Plan ASA status: 4 Anesthesia: MAC Other: Patient initially presented in acute hypoxic respiratory failure Patient originally had a PleurX catheter which has since been removed Patient had a peritoneal dialysis catheter and is agreeable to transition to hemodialysis. CAD history with prior PCI in 12/11. Stop Plavix 3 days ago Currently on 2 L nasal cannula Patient currently in severe sepsis with leukocytosis, tachypnea and hypoxia No pressors needed currently History of hypertension on Coreg, hydralazine, lisinopril and nifedipine. Patient with suspected type II UT upon admission. Echo performed yesterday showing EF 55 to 60% with no RWMA Plan for MAC anesthesia Medications/Allergies Home Medications ?Medication ?Instructions ?Recorded ?Confirmed ?Last Taken ?Type omeprazole 20 mg capsule,delayed 20 mg PO DAILY 04/06/24 07/16/25 06/26/25 History release cetirizine 10 mg tablet 10 mg PO DAILY PRN Allergy Symptoms 05/23/24 07/16/25 06/26/25 History calcitriol 0.25 mcg capsule 0.25 mcg PO DAILY 10/30/24 07/16/25 06/26/25 History vit B,C-folic ac 800 mcg-zinc 12.5 1 tab PO DAILY 10/30/24 07/16/25 06/26/25 History mg-selen-D3 2,000 unit-vit E tablet (RenaPlex-D) sevelamer carbonate 800 mg tablet 800 mg PO TID 12/07/24 07/16/25 06/26/25 History torsemide 100 mg tablet 100 mg PO DAILY 12/07/24 07/16/25 06/26/25 History blood-glucose sensor (FreeStyle #2 ea 02/12/25 07/16/25 Unknown Rx Palak 3 Plus Sensor device) aspirin 81 mg capsule 81 mg PO DAILY #90 caps 02/18/25 07/16/25 06/26/25 Rx clopidogrel 75 mg tablet 75 mg PO DAILY #90 tabs 02/18/25 07/16/25 06/21/25 Rx nifedipine 60 mg tablet,extended 60 mg PO DAILY 03/20/25 07/16/25 06/26/25 History release duloxetine 30 mg capsule,delayed 30 mg PO .q am #30 caps 04/16/25 07/16/25 06/26/25 Rx release sodium bicarbonate 650 mg tablet 650 mg PO BID 04/16/25 07/16/25 06/26/25 History diabetic shoes with 3 inserts #1 ea 04/18/25 07/16/25 Unknown Rx atorvastatin 40 mg tablet 40 mg PO DAILY 06/26/25 07/16/25 06/26/25 History hydralazine 50 mg tablet 100 mg PO TID 06/26/25 07/16/25 06/26/25 History lisinopril 40 mg tablet 40 mg PO DAILY 06/26/25 07/16/25 06/25/25 History albuterol sulfate 90 mcg/actuation 1 puff inhalation BID PRN 06/28/25 07/16/25 Unknown History aerosol inhaler Shortness Of Breath Or Wheezing gentamicin 0.1 % topical cream See Rx Instructions .Route .COMPLEX 06/28/25 07/16/25 Unknown History ondansetron 4 mg disintegrating 4 mg PO Q6H PRN Nausea And Vomiting 06/28/25 07/16/25 Unknown History tablet carvedilol 25 mg tablet 12.5 mg (1/2 x 25 mg) PO BID 30 07/01/25 07/16/25 Unknown Rx days #30 tabs insulin aspart U-100 100 unit/mL See Rx Instructions .Route 07/12/25 07/16/25 Unknown Rx (3 mL) subcutaneous pen (Novolog .COMPLEX #15 mL FlexPen U-100 Insulin aspart) Allergies Allergy/AdvReac Type Severity Reaction Status Date / Time venom-honey bee Allergy Severe ALGY-Redness Verified 07/15/25 16:28 of Skin marijuana (cannabis) Allergy Intermediate ADR-Nausea Verified 07/15/25 16:28 codeine AdvReac Severe ADR-Vomitin Verified 07/15/25 16:28 g morphine AdvReac Severe ADR-Vomitin Verified 07/15/25 16:28 g propoxyphene (From AdvReac Severe ADR-Vomitin Verified 07/15/25 16:28 Darvocet-N) g latex AdvReac Intermediate ALGY-Rash Verified 07/15/25 16:28 Current Medications Generic Name Dose Route Start Last Admin Trade Name Freq PRN Reason Stop Dose Admin Aspirin 81 mg 07/17/25 05:00 07/17/25 06:09 Aspirin 81 Mg Ec Tablet PO Not Given DAILY ALMITA Atorvastatin Calcium 40 mg 07/17/25 05:00 07/17/25 04:16 Atorvastatin 40 Mg Tablet PO 40 mg DAILY ALMITA Administration Calcitriol 0.25 mcg 07/17/25 05:00 07/17/25 04:17 Calcitriol 0.25 Mcg Capsule PO 0.25 mcg DAILY ALMITA Administration Carvedilol 12.5 mg 07/17/25 05:00 07/17/25 04:16 Carvedilol 25 Mg Tablet PO 12.5 mg BID ALMITA Administration Clopidogrel Bisulfate 75 mg 07/17/25 05:00 07/17/25 06:09 Clopidogrel 75 Mg Tablet PO Not Given DAILY ALMITA Duloxetine HCl 30 mg 07/17/25 05:00 07/17/25 04:17 Duloxetine 30 Mg Capsule PO 30 mg QAM ALMITA Administration Hydralazine HCl 100 mg 07/17/25 05:00 07/17/25 04:17 Hydralazine 50 Mg Tablet PO 100 mg TID ALMITA Administration Piperacillin Sod/Tazobactam 50 mls @ 100 mls/hr 07/16/25 03:00 07/17/25 06:09 Sod 2.25 gm/ Sodium Chloride IV Infused Q12H ALMITA Infusion Heparin Sodium/Sodium Chloride 25,000 unit in 500 mls @ 0 mls/hr 07/16/25 04:00 07/17/25 06:10 Heparin Drip IV 0 unit/kg/hr CONT ALMITA 0 mls/hr Protocol Titration Per Protocol Lisinopril 40 mg 07/17/25 05:00 07/17/25 06:09 Lisinopril 20 Mg Tablet PO Not Given DAILY ALMITA Nifedipine 20 mg 07/17/25 05:00 07/17/25 04:15 Nifedipine 10 Mg Capsule PO 20 mg TID ALMITA Administration Pantoprazole Sodium 40 mg 07/17/25 05:00 07/17/25 04:27 Pantoprazole 40 Mg Sdv IVP 40 mg DAILY ALMITA Administration Sevelamer Carbonate 800 mg 07/17/25 05:00 07/17/25 04:16 Sevelamer 800 Mg Tablet PO 800 mg TID ALMITA Administration Sodium Bicarbonate 650 mg 07/17/25 05:00 07/17/25 04:15 Sodium Bicarbonate 650 Mg Tablet PO 650 mg BID ALMITA Administration PFS Anesthesia Medical History Sepsis Pleural effusion PAD (peripheral artery disease) Essential hypertension Peritoneal dialysis catheter in place Uncontrolled type 2 diabetes mellitus Anemia of chronic disease ESRD (end stage renal disease) Diabetic neuropathy, type II diabetes mellitus Diabetic retinopathy Bereavement Major depressive disorder, recurrent, in partial remission Psychiatric care FH: total knee replacement left HLA B27 (HLA B27 positive) High risk medication use Inflammatory arthritis Seronegative spondyloarthropathy Chronic insomnia See subjective note below. Chronic pain See subjective note below. Chronic post-traumatic stress disorder (PTSD) Generalized anxiety disorder Major depressive disorder, recurrent, moderate Surgical History History of cataract extraction History of hysterectomy for benign disease History of tonsillectomy History of appendectomy History of left knee replacement Family History Mother Hypertension Diabetes Psychiatric illness Thyroid disease Father , in his 50's Family history of premature coronary artery disease Hyperlipidemia Myocardial infarction Brother Hypertension Sister No problems noted. Denies family history of Rheumatoid arthritis Lupus Social History Smoking and tobacco/nicotine status: never used tobacco/nicotine Second hand smoke exposure: No Alcohol intake: never Substance/Drug Use: never Adopted: No Caregiver/support person: No Lives independently: No Household members: family service: No Current occupational status: unemployed and disabled Sexually active: Yes Do you think of yourself as: Straight/Heterosexual Current gender identity: Female Data Anesthesia 07/17/25 00:33 07/17/25 00:33 Short CBC 07/15/25 07/16/25 07/17/25 Range/Units 17:44 02:24 00:33 WBC 12.91 H 13.18 H 7.81 (3.29-11.43) 10^3/uL Hgb 9.60 L 9.70 L 8.10 L (11.27-16.99) g/dL Hct 31.5 L 30.9 L 26.4 L (36-47) % MCV 85.8 85.1 86.3 (85-98) fl Plt Count 584 H 526 H 458 H (157-399) 10^3/cmm Neut % (Auto) 83.6 87.3 64.1 % Neut # (Auto) 10.80 H 11.50 H 5.01 (1.8-7.7) 10^3/uL BMP 07/15/25 07/16/25 07/17/25 17:44 02:24 00:33 Sodium 139 139 137 Potassium 6.1 H 5.1 4.6 Chloride 98 99 97 L Carbon Dioxide 21 L 22 23 BUN 56 H 30 H 44 H Creatinine 7.1 H* 4.1 H 5.9 H* Glucose 123 H 108 177 H Calcium 9.2 8.9 8.6 Cardiac Enzymes 07/15/25 07/15/25 07/16/25 Range/Units 17:44 20:00 02:24 Troponin T Baseline 210 H* (0-10) ng/L Troponin T 120 Minute 216.4 H (0-10) ng/L Delta Troponin T 6.4 (0-10) ABS# Troponin T Hi Sens 6Hr 302.5 H (0-10) ng/L Troponin T Hi Sens 6Hr Delta 92.5 H* (0-12) ng/L NT-Pro-B Natriuret Pep > 94470 H (0-125) pg/mL 07/16/25 07/16/25 07/16/25 Range/Units 04:20 06:13 10:51 Troponin T Baseline 306 H* (0-10) ng/L Troponin T 120 Minute 309.3 H (0-10) ng/L Delta Troponin T 3.3 (0-10) ABS# Troponin T Hi Sens 6Hr 369.7 H (0-10) ng/L Troponin T Hi Sens 6Hr Delta 63.7 H* (0-12) ng/L NT-Pro-B Natriuret Pep (0-125) pg/mL Liver Function 07/15/25 07/16/25 07/17/25 Range/Units 17:44 02:24 00:33 Total Bilirubin 0.3 0.4 0.2 (0.15-1.2) mg/dL AST 16 16 14 (0-32) U/L ALT 8 9 8 (0-33) U/L Alkaline Phosphatase 85 82 70 (35-105) U/L Albumin 3.3 L 3.3 L 3.0 L (3.5-5.2) g/dL Coags 07/15/25 07/16/25 07/17/25 17:44 11:20 00:33 APTT 59.1 H 67.9 H C-Reactive Protein 64.7 H Microbiology 07/15/25 23:20 Blood Culture - Preliminary Blood NEGATIVE TO DATE 07/15/25 22:24 Blood Culture - Preliminary Blood NEGATIVE TO DATE 07/15/25 17:44 Blood Culture - Preliminary Blood NEGATIVE TO DATE 07/15/25 17:44 Blood Culture - Preliminary Blood NEGATIVE TO DATE 07/15/25 07:30 Gram Stain - Final Peritoneal Fluid Cardiac Studies: Echocardiogram 07/16/25 Sestamibi Stress Test (Cardiology) 07/16/25
--- NOTE | 2025-07-17 11:52 | W.PM.OPSUD ---
Surgery/Procedure H&P Update DATE OF PROCEDURE: July 17, 2025 DATE H&P PERFORMED: 07/16/25 H&P UPDATE INFORMATION: I have reviewed H&P completed within last 30 days, I have examined patient prior to procedure, No changes to prior documentation, H&P is in [facility] EMR on date indicated and Risks and benefits of the procedure reviewed PREOP DIAGNOSIS: Sepsis PLANNED PROCEDURE: Operation Date: 07/17/25 11:50 Proposed Procedures p Peritoneal Catheter Removal(Not Applicable) - Brady Magana MD
--- NOTE | 2025-07-17 11:58 | PC.NURSE ---
Anesthesia and surgical consents obtained.To OR via stretcher with STAFF ELECTRICAL ENGINEER at bedside.
--- NOTE | 2025-07-17 12:42 | PM.OP ---
Operative Report Date of procedure: July 17, 2025 Pre-op diagnosis: bacterial peritonitis Post-op diagnosis: Same Post-op findings: Peritoneal dialysis catheter noted entering the rectus sheath on the lateral position Procedure done: Excision of peritoneal dialysis catheter Specimens removed/disposition: Peritoneal dialysis catheter, tip for culture Surgeon: Brady Magana MD Street Light Lamp Cleaner: MAN OR Staff Estimated blood loss: 5 Complications: none Brief History: This is a 54-year-old female who presented to hospital with fluid overload, and sepsis I have been requested to remove the peritoneal dialysis catheter as this is suspected to be a source. Procedure: Patient was brought into the OR, she was placed in a spine position, moderate anesthesia care was initiated. The abdomen was prepped and draped in the usual sterile fashion. Timeout was conducted. Local anesthesia was infiltrated. At 2 cm incision was made overlying the previous surgical incision in the left hemiabdomen 3 cm from the bellybutton. The incision was deepened until the catheter was identified. The catheter was then internalized through the wound. I then proceeded to pull on the catheter and circumferentially dissect the superficial cuff. Once the scope was liberated I then proceeded to open the anterior rectus sheath with electrocautery and circumferentially dissected the deep cuff. Once the catheter was released it came out completely in 1 piece. The catheter tip was sent for culture. The anterior rectus sheath was closed with #0 Vicryl UR 6 needle. The wound was irrigated. Local hemostasis was achieved. The wound was closed in layers using 3-0 Vicryl for subcutaneous tissue #4 Monocryl for the skin and Dermabond was applied. At the end of the procedure all counts were correct. the patient tolerated well the procedure was transferred to PACU in stable condition
[2025-07-17] MEDS: lidocaine-epi 1% 20 mL INJ INJECTION (12:45)
[2025-07-17] MEDS: BUPivacaine 0.5% INJ 10 mL 20 ML INJECTION (12:46)
--- NOTE | 2025-07-17 13:02 | ANE.PACU2 ---
Inpatient post-anesthesia follow up: Airway intact: Yes Vital signs: Temperature 97.8 F Pulse Rate 74 Respiratory Rate 18 Blood Pressure 95/56 Pulse Oximetry 96 Oxygen Delivery Me thod Nasal Cannula Oxygen Flow Rate 5 Fraction of Inspir ed Oxygen Hydration adequate: Yes Nausea and vomiting: No Pain level: 1 Mental status: Baseline
[2025-07-17] MEDS: heparin, porcine 1,000 unit/mL INJ 10 mL 1000 UNIT IV (13:43)
--- NOTE | 2025-07-17 13:59 | PC.NURSE ---
Verified with Dr. Magana that he is ok with the ASA and Plavix being restarted tomorrow AM. Notified Roberto Stacy NP.
--- NOTE | 2025-07-17 14:52 | PC.OT ---
OT TREATMENT ATTEMPTED; PATIENT RECEIVING DIALYSIS
--- NOTE | 2025-07-17 16:06 | NMCV_ITS ---
NM zaheer perf SPECT r/s* [id number] Lizy Evans Age: 54 Gender: F : 1970 Exam Date: 07/17/2025 07:15 Ordering Phys: Reshma Stacy Technologist: JODI Flower Exam Location: [facility] Indications: cp STRESS TEST Please see separate stress test report in [facility] for full findings IMAGE PROTOCOL Rest/Stress 1 Lexiscan Day Radiopharmaceutical Dose (mCi) Administration Site Administered by Rest: Tc-99m 11 IV JODI Cruz Sestamibi Stress:Tc-99m 32.5 IV JODI Flower Sestamianthony Rest: 17-Jul-2025 60 Discovery 630 Stress: 17-Jul-2025 30 Discovery 630 0.4mg Lexiscan. Supine position only as patient was unable to lay prone. SPECT RESULTS Technical Quality: Good Raw Data Analysis: Normal Image Corrections: No attenuation or motion correction applied Summed Stress Score: 16 Summed Rest Score: 17 Summed Difference Score: 0 PERFUSION FINDINGS A large area of moderate to severely decreased tracer uptake involving the anterior, anterolateral, inferolateral and apical regions with no significant reversibility FUNCTIONAL RESULTS (calculated via Gated SPECT) Stress Image LV EF (%): 57 Stress EDV (mL):144 TID: 1.11 Stress ESV (mL):62 FUNCTIONAL FINDINGS: Segmental wall motion analysis revealing no gross wall motion abnormalities IMPRESSIONS 1. Myocardial perfusion imaging revealing a large area of persistent decreased tracer uptake involving the anterior, anterolateral, inferolateral and apical regions suggesting myocardial scarring versus attenuation artifact 2. Normal LV ejection fraction 57% 3. LV wall motion analysis revealing no gross wall motion abnormalities. 4. Mildly dilated LV cavity with an end-systolic volume of 62 mL No significant coronary ischemia, based on the above findings Compared to the study from 12/11/2024, the current study does not reveal any significant reversible defects suggesting ischemia Dr Chandrakant Hinojosa MD FACC (Electronically Signed) Final Date: 17 July 2025 13:02 S
--- NOTE | 2025-07-17 16:47 | P.PN_ITS ---
Subjective 2 Subjective: 54-year-old female receiving h emodialysis in ICU bed 12. She states that she did her peritoneal dialysis faithfully but just did not get much fluid returned so she was gaining water weight. Chest x-ray showed pulmonary edema. Echo showed LVEF 55 to 60% moderate LVH left atrial dilation noted. S/p stress test this AM Medications: Reviewed: Yes Vitals/I&O/Wt Last Vital Signs Temp 98.2 F 07/17/25 16:00 Pulse 77 07/17/25 16:00 Resp 16 07/17/25 16:00 BP 134/64 07/17/25 16:00 Pulse Ox 97 07/17/25 16:00 O2 Del Method Nasal Cannula 07/17/25 16:00 O2 Flow Rate 3 07/17/25 16:00 07/17/25 07/17/25 07/17/25 06:59 14:59 22:59 Intake Total 328 / 554 200 / 200 Output Total 5 / 5 Balance 328 / 554 195 / 195 Weight last 48 hrs Weight 84 kg Weight 83.5 kg Weight 87.5 kg Physical Exam 2 Narrative: General Well-developed overweight female receiving hemodialysis. She is in no distress. She had initial low blood pressure following recent peritoneal dialysis catheter removal and surgery but after the first 30 minutes or so blood pressure has been 140s. CV regular rate and rhythm Lungs clear on anterior and right posterior exam I did not have a chance to examine the left side due to patient dialysis Calves 2+ edema Urinary Catheter Management: Segal: Cath Placed During This Visit: yes Reason for Continuing Indwelling Catheter: Accurate Measurement of Urinary Output in Critically Ill Patients Urinary Catheter Date of Insertion: 07/15/25 Data 07/17/25 00:33 07/17/25 00:33 Micro: Microbiology 07/15/25 07:30 Gram Stain - Final Peritoneal Fluid Body Fluid Culture - Preliminary 07/15/25 23:20 Blood Culture - Preliminary Blood NEGATIVE TO DATE 07/15/25 22:24 Blood Culture - Preliminary Blood NEGATIVE TO DATE 07/15/25 17:44 Blood Culture - Preliminary Blood NEGATIVE TO DATE 07/15/25 17:44 Blood Culture - Preliminary Blood NEGATIVE TO DATE A&P Assessment and plan 1. Acute hypoxemic respiratory failure: Most likely in setting of congestive heart failure. And undergoing dialysis now PleurX catheter removed 07/16/[address] Villarreal Patient was failing peritoneal dialysis with poor fluid return Nuclear test shows fixed scar. Oxygen supplementation keeping saturation over 90%. 2. Sepsis: Now stable Follow-up blood culture. Follow-up peritoneal fluid studies and Gram stain and culture. MRSA swab was negative discontinue vancomycin Continue Zosyn 3. Malignant hypertension: Goal blood pressure less than 140/90 mmHg. Blood pressure stable for now. Continue with home dose of Coreg, hydralazine, lisinopril, nifedipine. Needed nicardipine overnight. Currently blood pressure stable. Nicardipine discontinued. 4. Pulmonary edema: Continue hemodialysis 5. Recurrent right pleural effusion: Right PleurX catheter removed continue with hemodialysis 6. Presence of stent in LAD coronary artery: Appreciate troponin cycled. Delta troponin more than 16 6 hours. Patient denies any active chest pain. Non-ST elevation less likely. Most likely type II MO. For now continue with heparin drip. Awaiting cardiology recommendations. Continue with baby aspirin, statin. Restart Plavix now Echo and nuclear medicine results as above 7. PAD (peripheral artery disease): Patient on aspirin and clopidogrel and statins Patient need medication confirmation reconciliation before resuming home medications 8. Peritonitis due to infected peritoneal dialysis catheter, subsequent encounter: Likely. Follow-up fluid studies as above. Antibiotics as above. 9. Inflammatory arthritis: Continue home dose duloxetine and other analgesics after reconciliation Plan: Full code Renal dialysis diet. Protonix for PUD prophylaxis Heparin drip will be sufficient for DVT prophylaxis PDMP PDMP Reviewed: Not Reviewed Attestations 2 Medical Necessity Statement*: Patient peter in the hospital for dialysis to remove excess fluid and pulmonary edema and will require greater than 2 midnights Coding Level of Care Code 81437 Diagnoses Acute hypoxemic respiratory failure J96.01 Sepsis A41.9 Malignant hypertension I10 Pulmonary edema J81.1 Recurrent right pleural effusion J90 Presence of stent in LAD coronary artery Z95.5 PAD (peripheral artery disease) I73.9 Peritonitis due to infected peritoneal dialysis catheter, subsequent encounter T85.71XD; K65.9 Encounter type: subsequent encounter Inflammatory arthritis M19.90 Time Spent (min) 35
[2025-07-18] VITALS (35 sets, daily range): BP systolic 124–189; BP diastolic 59–108; PULSE 72–92; RESP 14–26; TEMP 36.7–37.6; O2SAT 91–98; BMI 30.4
[2025-07-18 03:43] LABS: Hematocrit 24.7 % (36-47); Hemoglobin 7.50 g/dL (11.27-16.99); Mean Corpuscular HGB Conc 30.4 g/dL (30-55); Mean Corpuscular Hemoglobin 27.0 pg (27-33); Mean Corpuscular Volume 88.8 fl (85-98); Nucleated Red Blood Cells % 0 %; Platelet Count 373 10^3/cmm (157-399); Red Blood Count 2.78 10^6/uL (3.85-5.65); White Blood Count 6.27 10^3/uL (3.29-11.43)
[2025-07-18 04:18] LABS: Alanine Aminotransferase 7 U/L (0-33); Albumin Level 2.9 g/dL (3.5-5.2); Alkaline Phosphatase 66 U/L (35-105); Anion Gap 18.0 (5-19); Aspartate Amino Transferase 12 U/L (0-32); Blood Urea Nitrogen 24 mg/dL (6-20); Calcium 8.5 mg/dL (8.5-10.5); Carbon Dioxide 26 mmol/L (22-29); Chloride 99 mmol/L (98-107); Creatinine Clr Calc Pharmacy 15.7769; Globulin 3.5 g/dL (1.3-4.6); Glucose 123 mg/dL (65-115); Magnesium 1.9 mg/dL (1.7-2.3); Osmolality Calculated 293 mOsm/kg (285-295); Potassium 4.0 mmol/L (3.5-5.1); Sodium 139 mmol/L (136-145); Total Protein 6.4 g/dL (6.6-8.7)
[2025-07-18] MEDS: pantoprazole 40 mg SDV IVP (05:18)
[2025-07-18] MEDS: piperacillin-tazobactam 2.25 GM in sodium chloride 0.9% (plus) 50 ML IV ×2 (05:35→17:52)
--- NOTE | 2025-07-18 08:05 | P.PN_ITS ---
<Statement entered by Winter Ramirez MD - 07/28/25 20:00> Patient was evaluated and cared for in conjunction with an advanced practice practitioner. I personally examined the patient and reviewed the chart and all pertinent data including imaging, telemetry, and laboratory results. I discussed the patient in detail with the advanced practice practitioner. Please see their note for complete H&P testing result and agreed upon plan of care for the patient. Subjective 2 Subjective: Stress test yesterday was negative for ischemia. No intervention planned. Restarted aspirin and Plavix, however hemoglobin steadily dropping. 7.5 today. She notes feeling more short of breath, increased oxygen by nasal cannula this morning. For now continue DAPT. She had PD catheter removed yesterday by Dr. Magana. Vitals/I&O/Wt Last Vital Signs Temp 99.6 F 07/18/25 05:30 Pulse 80 07/18/25 06:00 Resp 18 07/18/25 06:00 BP 154/67 07/18/25 06:00 Pulse Ox 95 07/18/25 06:00 O2 Del Method Nasal Cannula 07/18/25 06:00 O2 Flow Rate 3 07/18/25 06:00 07/17/25 07/18/25 07/18/25 22:59 06:59 14:59 Intake Total 905 / 1155 50 / 1155 Output Total 4000 / 4205 200 / 4205 Balance -3095 / -3050 -150 / -3050 Weight last 48 hrs Weight 177 lb 7.554 oz Weight 187 lb 6.287 oz Weight 185 lb 3.013 oz Physical Exam 2 Const: COMMON NORMALS: no acute distress and patient oriented x3 GENERAL APPEARANCE: cooperative and comfortable ORIENTATION/CONSCIOUSNESS: Yes awake, Yes oriented to person, Yes oriented to place and Yes oriented to time Chest: COMMONS NORMALS: normal inspection of the chest and normal palpation of entire chest wall CHEST: Yes Symmetrical chest wall rise Resp: COMMON NORMALS: normal respiratory effort, No retractions, No use of accessory muscles and clear to auscultation bilaterally EFFORT & INSPECTION: Yes symmetric chest movement AUSCULTATION: clear to auscultation bilaterally Cardio: COMMON NORMALS: regular rate, regular rhythm, S1 normal heart sound present, S2 normal heart sound present, No gallops present (Cardio), No clicks present (Cardio), No murmurs present (Cardio) and No rub (Cardio) RATE: r egular rate RHYTHM: regular rhythm HEART SOUNDS: S1 normal heart sound present and S2 normal heart sound present PERIPHERAL PULSES: radial pulses present Extremity: COMMON NORMALS: no pedal edema Neuro: COMMON NORMALS: patient oriented x3 and moves all extremities S ENSORIUM/ORIENTATION: Yes oriented to person, Yes oriented to place and Yes oriented to time Urinary Catheter Management: Segal: Cath Placed During This Visit: yes Reason for Continuing Indwelling Catheter: Accurate Measurement of Urinary Output in Critically Ill Patients Urinary Catheter Date of Insertion: 07/15/25 Data 07/18/25 03:34 07/18/25 03:34 Micro: Microbiology 07/15/25 07:30 Gram Stain - Final Peritoneal Fluid Body Fluid Culture - Preliminary A&P Assessment and plan 1. Presence of stent in LAD coronary artery: 2. Diastolic heart failure: 3. Malignant hypertension: 4. Hyperlipidemia: 5. ESRD (end stage renal disease) on dialysis: 6. Dyspnea: Plan: Continue aspirin and Plavix, blood pressure elevated, will increase carvedilol. Continue nifedipine, lisinopril. May need blood transfusion since she is symptomatic less than 8.0. Will discuss with hospitalist. Epogen started by nephrology. PDMP PDMP Reviewed: Not Reviewed Attestations 2 Medical Necessity Statement*: anemia, HTN Coding Level of Care Code Acute Code for Chg Fwd Diagnoses Presence of stent in LAD coronary artery Z95.5 Diastolic heart failure I50.30 Malignant hypertension I10 Hyperlipidemia E78.5 ESRD (end stage renal disease) on dialysis N18.6; Z99.2 Dyspnea R06.00
--- NOTE | 2025-07-18 08:08 | P.PN_ITS ---
Subjective 2 Subjective: s/p PD catheter removal Medications: Reviewed: Yes Vitals/I&O/Wt Last Vital Signs Temp 99.6 F 07/18/25 05:30 Pulse 80 07/18/25 06:00 Resp 18 07/18/25 06:00 BP 154/67 07/18/25 06:00 Pulse Ox 95 07/18/25 06:00 O2 Del Method Nasal Cannula 07/18/25 06:00 O2 Flow Rate 3 07/18/25 06:00 07/17/25 07/18/25 07/18/25 22:59 06:59 14:59 Intake Total 905 / 1105 50 / 1155 Output Total 4000 / 4005 200 / 4205 Balance -3095 / -2900 -150 / -3050 Weight last 48 hrs Weight 80.5 kg Weight 85 kg Weight 84 kg Physical Exam 2 Narrative: Patient sitting up . HEENT normocephalic atraumatic neck is supple positive JVP Right sided permacath lungs have dull bases. Right PleurX catheter. Heart positive S1-S2. Abdomen is soft positive bowel sounds positive left-sided peritoneal dialysis catheter. Extremities 1+ edema. Neuro awake and alert oriented x 3. Urinary Catheter Management: Segal: Cath Placed During This Visit: yes Reason for Continuing Indwelling Catheter: Accurate Measurement of Urinary Output in Critically Ill Patients Urinary Catheter Date of Insertion: 07/15/25 Data 07/18/25 03:34 07/18/25 03:34 Micro: Microbiology 07/15/25 07:30 Gram Stain - Final Peritoneal Fluid Body Fluid Culture - Preliminary A&P Assessment and plan 1. ESRD (end stage renal disease) on dialysis: 54-year-old lady diabetes hypertension heart failure preserved EF, peripheral tibial disease pleural effusions recurrent s/p PleurX cathete placement few weeks ago -- > presented due to PleurX catheter is not draining. Patient has ESRD she was supposed to be transition to hemodialysis she is back on peritoneal dialysis. Patient had a recent similar admission where she improved with hemodialysis. Patient now presents with volume overload hypertension shortness of breath. 1. ESRD : was on PD , patient having recurrent admissions due to volume overload and also patient reports that PD fluid drainage has decreased. Discussed with patient's before school Dr. Gonzales and also discussed with patient, at this point plan to transition to in center hemodialysis permanently and S/P removal of PD catheter. HD today again due to SOB 2. Acute on chronic respiratory failure, history of recurrent pleural effusion. 3. HTN: bP elevated 4. Anemia : hb 7.5 , will ordsr Epogen Plan: Will provide hemodialysis today. PDMP PDMP Reviewed: Not Reviewed Attestations 2 Medical Necessity Statement*: per [facility] Coding Level of Care Code Acute Code for Chg Fwd Diagnoses ESRD (end stage renal disease) on dialysis N18.6; Z99.2
--- NOTE | 2025-07-18 11:01 | P.PN_ITS ---
Subjective 2 Subjective: Postop day 1 status post removal of peritoneal dialysis catheter. Doing well no significant issues Vitals/I&O/Wt Last Vital Signs Temp 99.3 F 07/18/25 08:00 Pulse 80 07/18/25 10:00 Resp 17 07/18/25 10:00 BP 146/67 07/18/25 10:00 Pulse Ox 97 07/18/25 10:00 O2 Del Method Nasal Cannula 07/18/25 10:00 O2 Flow Rate 3 07/18/25 10:00 07/17/25 07/18/25 07/18/25 22:59 06:59 14:59 Intake Total 905 / 1105 50 / 1155 Output Total 4000 / 4005 200 / 4205 Balance -3095 / -2900 -150 / -3050 Weight last 48 hrs Weight 177 lb 7.554 oz Weight 187 lb 6.287 oz Weight 185 lb 3.013 oz Physical Exam 2 GI: OTHER: Benign abdominal exam, surgical incision covered with Dermabond. Urinary Catheter Management: Segal: Cath Placed During This Visit: yes Reason for Continuing Indwelling Catheter: Accurate Measurement of Urinary Output in Critically Ill Patients Urinary Catheter Date of Insertion: 07/15/25 Data 07/18/25 03:34 07/18/25 03:34 Micro: Microbiology 07/16/25 07:30 Anaerobic Culture - Preliminary Pleural Fluid 07/15/25 07:30 Gram Stain - Final Peritoneal Fluid Body Fluid Culture - Preliminary A&P Assessment and plan 1. Peritonitis due to infected peritoneal dialysis catheter: Plan: Excellent progression from the surgical standpoint. She can follow-up in 2 weeks in my office for a wound check. Patient will require vascular surgery evaluation as outpatient for fistula creation as patient will likely require long-term hemodialysis. All other management per medical team. PDMP PDMP Reviewed: Not Reviewed Attestations 2 Medical Necessity Statement*: Per medical team Coding Level of Care Code Acute Code for Chg Fwd Diagnoses Peritonitis due to infected peritoneal dialysis catheter T85.71XA; K65.9
--- NOTE | 2025-07-18 15:29 | P.PN_ITS ---
Subjective 2 Subjective: 54-year-old female had PD cath eter removed yesterday by Dr. Magana. Patient is on dual antiplatelet therapy for history of PCI and stent to proximal LAD November 2024. No nausea vomiting melena hematochezia but hematocrit has dropped to 24. BUN/creatinine improving with hemodialysis and she was 4 L negative yesterday with dialysis and Epogen has been started by Dr. Mitchell Medications: Reviewed: Yes Vitals/I&O/Wt Last Vital Signs Temp 99.1 F 07/18/25 12:00 Pulse 84 07/18/25 14:00 Resp 14 07/18/25 14:00 BP 172/78 07/18/25 14:00 Pulse Ox 95 07/18/25 14:00 O2 Del Method Nasal Cannula 07/18/25 14:00 O2 Flow Rate 2 07/18/25 14:00 07/18/25 07/18/25 07/18/25 06:59 14:59 22:59 Intake Total 50 / 1155 Output Total 200 / 4205 Balance -150 / -3050 Weight last 48 hrs Weight 80.5 kg Weight 85 kg Weight 84 kg Physical Exam 2 Narrative: General Well-developed overweight female receiving hemodialysis. She is in no distress. She had initial low blood pressure following recent peritoneal dialysis catheter removal and surgery but after the first 30 minutes or so blood pressure has been 140s. CV regular rate and rhythm Lungs clear to auscultation bilaterally but decreased breath sounds at the bases left worse than right Abdomen soft no tenderness no rebound tenderness Calves trace edema Urinary Catheter Management: Segal: Cath Placed During This Visit: yes Reason for Continuing Indwelling Catheter: Accurate Measurement of Urinary Output in Critically Ill Patients Urinary Catheter Date of Insertion: 07/15/25 Data 07/18/25 03:34 07/18/25 03:34 Micro: Microbiology 07/15/25 07:30 Gram Stain - Final Peritoneal Fluid Body Fluid Culture - Preliminary 07/17/25 12:35 Catheter Tip Culture - Preliminary Other Source 07/16/25 07:30 Anaerobic Culture - Preliminary Pleural Fluid A&P Assessment and plan 1. Acute hypoxemic respiratory failure: Most likely in setting of congestive heart failure. And undergoing second dialysis now. Nearly resolved hypoxemia PleurX catheter removed 07/16/[address] Villarreal Patient was failing peritoneal dialysis with poor fluid return Nuclear test shows fixed scar. Oxygen supplementation keeping saturation over 90%. She will be 7 L negative in 2 days following today's dialysis 2. Sepsis: Now stable Follow-up blood culture which are thus far negative from July 15. Follow- up peritoneal fluid studies and Gram stain and culture. MRSA swab was negative discontinue vancomycin Continue Zosyn for now but peritoneal dialysis catheter tip also negative for infection currently at 1 day 3. Malignant hypertension: Goal blood pressure less than 140/90 mmHg. Blood pressure stable for now. Continue with home dose of Coreg, hydralazine, lisinopril, nifedipine. Needed nicardipine overnight. Currently blood pressure stable. Nicardipine discontinued. 4. Pulmonary edema: Continue hemodialysis. Portable chest x-ray in the morning 5. Recurrent right pleural effusion: Right PleurX catheter removed continue with hemodialysis 6. Presence of stent in LAD coronary artery: Continued dual antiplatelet therapy but monitor for source of potential bleeding. Stool ask will be obtained 7. PAD (peripheral artery disease): Patient on aspirin and clopidogrel and statins Patient need medication confirmation reconciliation before resuming home medications 8. Peritonitis due to infected peritoneal dialysis catheter, subsequent encounter: Likely. Follow-up fluid studies as above. Antibiotics as above. Abdominal exam is benign she is currently on single agent Zosyn 9. Inflammatory arthritis: Continue home dose duloxetine and other analgesics after reconciliation 10. Anemia due to chronic kidney disease, on chronic dialysis: Hematocrit is acutely dropping to 24 from 27. Unclear etiology. She is receiving Epogen and will also have stool guaiacs. Hold off on transfusion and continue dual antiplatelet therapy. Iron level was 42% sat 27% which is normal Plan: Full code Renal dialysis diet. Protonix for PUD prophylaxis Heparin drip will be sufficient for DVT prophylaxis PDMP PDMP Reviewed: Not Reviewed Attestations 2 Medical Necessity Statement*: Patient remains in hospital for dialysis. Repeat chest x-ray in morning. Anticipate further dialysis on Tuesday and discharge on that date to follow-up on Tuesday for outpatient chair time Coding Level of Care Code 49989 Diagnoses Acute hypoxemic respiratory failure J96.01 Sepsis A41.9 Malignant hypertension I10 Pulmonary edema J81.1 Recurrent right pleural effusion J90 Presence of stent in LAD coronary artery Z95.5 PAD (peripheral artery disease) I73.9 Peritonitis due to infected peritoneal dialysis catheter, subsequent encounter T85.71XD; K65.9 Encounter type: subsequent encounter Inflammatory arthritis M13.80 Anemia due to chronic kidney disease, on chronic dialysis N18.6; D63.1; Z99.2 Time Spent (min) 35
[2025-07-18] MEDS: heparin, porcine 1,000 unit/mL INJ 10 mL 1000 UNIT IV (15:35)
[2025-07-18] MEDS: heparin, porcine 1,000 unit/mL INJ 10 mL 10000 UNIT INTRACATH (15:36)
--- NOTE | 2025-07-18 16:22 | PC.OT ---
OT TREATMENT HELD AGAIN TODAY PATIENT IS RECEIVING DIALYSIS AT THIS TIME
[2025-07-18] MEDS: vancomycin 500 MG in sodium chloride 0.9% (plus) 100 ML 200 MG IV (19:21)
--- NOTE | 2025-07-18 21:55 | PC.NURSE ---
Spoke with Dr. Neff in reference to patient's persistent hypertension and the chart referencing a BP goal of <140/90. Dr. Neff advised he would review the chart and potentially add hydralazine PRN or increase the dose of nifedipine. Also, Dr. Neff advised not to be too alarmed with systolic in the 170's-180's due to HD.
[2025-07-19] VITALS (34 sets, daily range): BP systolic 118–198; BP diastolic 60–93; PULSE 75–93; RESP 14–31; TEMP 36.9–37.4; O2SAT 89–98
--- NOTE | 2025-07-19 00:38 | PC.NURSE ---
Spoke with Dr. Tate in reference to positive fecal occult stool test, as well as downward trending Hgb over this hospital stay. Dr. Tate advised to continue to monitor for hemodynamic instability or danilo blood loss. If Hgb drops to below 7 plan to transfuse.
--- NOTE | 2025-07-19 01:03 | P.EN_ITS ---
Event Note Event Note: 1-uncontrolled hypertension: -Hydralazine 20 mg IV stat - Increased the dose of nifedipine from 20 mg 3 times daily to 30 mg 3 times daily - May need to consult nephro for possibl e optimization of dialysis session for better blood pressure control and fluid management 2-stool occult blood positive, microcyti c anemia Iron profile recently done ferritin is high and also iron saturation more than 20, consider nephro on board for possible erythropoietin therapy since patient is end-stage renal disease Stool occult blood positive, hemodynamically stable, hemoglobin 7.5, if below 7 to transfuse and consider colonoscopy inpatient versus outpatient based on urgency. Currently at the moment patient is stable Event Notes Attestations Time Spent in Patient Care: less than 15 minutes (>than 50% of time spent in counselling and/or direct pt care on unit) .
[2025-07-19] MEDS: hyDRALAzine 20 mg/mL INJ 1 mL IVP ×2 (01:04→23:23)
[2025-07-19] MEDS: pantoprazole 40 mg SDV IVP ×2 (05:01→17:41)
[2025-07-19] MEDS: piperacillin-tazobactam 2.25 GM in sodium chloride 0.9% (plus) 50 ML IV ×2 (05:15→17:41)
[2025-07-19 07:14] LABS: Hematocrit 26.8 % (36-47); Hemoglobin 7.80 g/dL (11.27-16.99); Mean Corpuscular HGB Conc 29.1 g/dL (30-55); Mean Corpuscular Hemoglobin 26.4 pg (27-33); Mean Corpuscular Volume 90.8 fl (85-98); Nucleated Red Blood Cells % 0 %; Platelet Count 351 10^3/cmm (157-399); Red Blood Count 2.95 10^6/uL (3.85-5.65); White Blood Count 9.00 10^3/uL (3.29-11.43)
[2025-07-19 07:37] LABS: Anion Gap 18.6 (5-19); Blood Urea Nitrogen 21 mg/dL (6-20); Calcium 8.4 mg/dL (8.5-10.5); Carbon Dioxide 24 mmol/L (22-29); Chloride 99 mmol/L (98-107); Creatinine Clr Calc Pharmacy 17.3185; Glucose 176 mg/dL (65-115); Magnesium 1.8 mg/dL (1.7-2.3); Osmolality Calculated 293 mOsm/kg (285-295); Potassium 3.6 mmol/L (3.5-5.1); Sodium 138 mmol/L (136-145)
--- NOTE | 2025-07-19 08:00 | XR_ITS ---
WS: [id number] XR chest 1V portable [id number] REASON FOR EXAM: Follow-up pulmonary edema FINDINGS: Right internal jugular dialysis catheter remains in position unchanged compared to 07/15/2025. The right Pleurx chest tube is no longer identified. Mild tortuosity and ectasia of the aortic arch and thoracic aorta. Cardiomegaly. Moderate central pulmonary venous congestion. Significant resolution of the opacities (presumed pulmonary edema) in both lungs compared to the previous examination of 07/15/2025. Residual interstitial and groundglass opacities in both lower lungs. Residual bilateral pleural effusions. Left lower lobe atelectasis. XR/XR chest 1V portable [id number] IMPRESSION: Significant decrease in the bilateral lung opacities compatible with resolving pulmonary edema. Residual chest abnormalities as above.
--- NOTE | 2025-07-19 09:44 | PM.PN ---
Subjective Subjective: no new complaints , on room air Medications: Reviewed: Yes Vitals/I&O/Wt Last Vital Signs Temp 99.0 F 07/19/25 08:00 Pulse 75 07/19/25 09:00 Resp 15 07/19/25 09:00 BP 118/63 07/19/25 09:00 Pulse Ox 94 07/19/25 09:00 O2 Del Method Room Air 07/19/25 08:00 O2 Flow Rate 2 07/18/25 16:00 07/18/25 07/19/25 07/19/25 22:59 06:59 14:59 Intake Total 500 / 500 350 / 850 Output Total 200 / 200 200 / 400 Balance 300 / 300 150 / 450 Weight last 48 hrs Weight 80 kg Weight 80 kg Weight 80 kg Weight 80.5 kg Weight 85 kg Physical Exam Narrative: Patient sitting up . HEENT normocephalic atraumatic neck is supple positive JVP Right sided permacath lungs have dull bases. Heart positive S1-S2. Abdomen is soft positive bowel sounds positive left-sided peritoneal dialysis catheter. Extremities 1+ edema. Neuro awake and alert oriented x 3. Urinary Catheter Management: Segal: Cath Placed During This Visit: yes Reason for Continuing Indwelling Catheter: Accurate Measurement of Urinary Output in Critically Ill Patients Urinary Catheter Date of Insertion: 07/15/25 Data 07/19/25 06:56 07/19/25 06:56 Micro: Microbiology 07/18/25 23:00 Occult Blood (FIT) - Final Stool - Stool Aspirate 07/15/25 07:30 Gram Stain - Final Peritoneal Fluid Body Fluid Culture - Preliminary 07/17/25 12:35 Catheter Tip Culture - Preliminary Other Source 07/16/25 07:30 Anaerobic Culture - Preliminary Pleural Fluid A&P Assessment and plan 1. ESRD (end stage renal disease) on dialysis: 54-year-old lady diabetes hypertension heart failure preserved EF, peripheral tibial disease pleural effusions recurrent s/p PleurX cathete placement few weeks ago -- > presented due to PleurX catheter is not draining. Patient has ESRD she was supposed to be transition to hemodialysis she is back on peritoneal dialysis. Patient had a recent similar admission where she improved with hemodialysis. Patient now presents with volume overload hypertension shortness of breath. 1. ESRD : was on PD , patient having recurrent admissions due to volume overload and also patient reports that PD fluid drainage has decreased. Discussed with patient's sustainability consultant Dr. Gonzales and also discussed with patient, at this point plan to transition to in center hemodialysis permanently and S/P removal of PD catheter. HD per TTS schedule 2. Acute on chronic respiratory failure, history of recurrent pleural effusion. 3. HTN: bP elevated 4. Anemia : hb 7.8 , s/p Epogen Plan: Will provide hemodialysis today. PDMP PDMP Reviewed: Not Reviewed Attestations Medical Necessity Statement*: per [facility] Coding Level of Care Code Acute Code for Chg Fwd Diagnoses ESRD (end stage renal disease) on dialysis N18.6; Z99.2
--- NOTE | 2025-07-19 09:53 | P.PN_ITS ---
<Statement entered by Winter Ramirez MD - 07/28/25 20:00> Patient was evaluated and cared for in conjunction with an advanced practice practitioner. I personally examined the patient and reviewed the chart and all pertinent data including imaging, telemetry, and laboratory results. I discussed the patient in detail with the advanced practice practitioner. Please see their note for complete H&P testing result and agreed upon plan of care for the patient. Subjective 2 Subjective: She has done well overnight, hypertensive. Stopping aspirin, continuing Plavix due to anemia. She will have HD tomorrow. Vitals/I&O/Wt Last Vital Signs Temp 99.0 F 07/19/25 08:00 Pulse 75 07/19/25 09:00 Resp 15 07/19/25 09:00 BP 118/63 07/19/25 09:00 Pulse Ox 94 07/19/25 09:00 O2 Del Method Room Air 07/19/25 08:00 O2 Flow Rate 2 07/18/25 16:00 07/18/25 07/19/25 07/19/25 22:59 06:59 14:59 Intake Total 500 / 850 350 / 850 Output Total 200 / 400 200 / 400 Balance 300 / 450 150 / 450 Weight last 48 hrs Weight 176 lb 5.917 oz Weight 176 lb 5.917 oz Weight 176 lb 5.917 oz Weight 177 lb 7.554 oz Weight 187 lb 6.287 oz Physical Exam 2 Const: COMMON NORMALS: no acute distress and patient oriented x3 GENERAL APPEARANCE: cooperative and comfortable ORIENTATION/CONSCIOUSNESS: Yes awake, Yes oriented to person, Yes oriented to place and Yes oriented to time Chest: COMMONS NORMALS: normal inspection of the chest and normal palpation of entire chest wall CHEST: Yes Symmetrical chest wall rise Resp: COMMON NORMALS: normal respiratory effort, No retractions, No use of accessory muscles and clear to auscultation bilaterally EFFORT & INSPECTION: Yes symmetric chest movement AUSCULTATION: clear to auscultation bilaterally Cardio: COMMON NORMALS: regular rate, regular rhythm, S1 normal heart sound present, S2 normal heart sound present, No gallops present (Cardio), No clicks present (Cardio), No murmurs present (Cardio) and No rub (Cardio) RATE: r egular rate RHYTHM: regular rhythm HEART SOUNDS: S1 normal heart sound present and S2 normal heart sound present PERIPHERAL PULSES: radial pulses present Extremity: COMMON NORMALS: no pedal edema Neuro: COMMON NORMALS: patient oriented x3 and moves all extremities S ENSORIUM/ORIENTATION: Yes oriented to person, Yes oriented to place and Yes oriented to time Urinary Catheter Management: Segal: Cath Placed During This Visit: yes Reason for Continuing Indwelling Catheter: Accurate Measurement of Urinary Output in Critically Ill Patients Urinary Catheter Date of Insertion: 07/15/25 Data 07/19/25 06:56 07/19/25 06:56 Micro: Microbiology 07/18/25 23:00 Occult Blood (FIT) - Final Stool - Stool Aspirate 07/15/25 07:30 Gram Stain - Final Peritoneal Fluid Body Fluid Culture - Preliminary 07/17/25 12:35 Catheter Tip Culture - Preliminary Other Source 07/16/25 07:30 Anaerobic Culture - Preliminary Pleural Fluid A&P Assessment and plan 1. Malignant hypertension: 2. Presence of stent in LAD coronary artery: 3. Diastolic heart failure: 4. Hyperlipidemia: Plan: Her stress test was negative for ischemia, she has not had any chest pain. Medications for hypertension being adjusted by hospitalist service. Will sign off. Please call with questions. PDMP PDMP Reviewed: Not Reviewed Attestations 2 Medical Necessity Statement*: Per hospitalist Coding Level of Care Code Acute Code for Chg Fwd Diagnoses Malignant hypertension I10 Presence of stent in LAD coronary artery Z95.5 Diastolic heart failure I50.30 Hyperlipidemia E78.5
--- NOTE | 2025-07-19 11:51 | PC.SOCIAL ---
IMM update pg 2 of IMM Updated and reviewed w/ patient. copy provided and copy dated, initialed and placed in chart.
--- NOTE | 2025-07-19 12:49 | P.PN_ITS ---
Subjective 2 Subjective: Hospital course, labs appreciated. Patient seen sitting up in chair today. Denies any nausea, vomiting, headache. Remains on room air. Blood pressure slightly elevated overnight. Medications: Reviewed: Yes Vitals/I&O/Wt Last Vital Signs Temp 99.0 F 07/19/25 08:00 Pulse 82 07/19/25 12:00 Resp 18 07/19/25 12:00 BP 140/60 07/19/25 12:00 Pulse Ox 94 07/19/25 09:00 O2 Del Method Room Air 07/19/25 08:00 O2 Flow Rate 2 07/18/25 16:00 07/18/25 07/19/25 07/19/25 22:59 06:59 14:59 Intake Total 500 / 500 350 / 850 675 / 675 Output Total 200 / 200 200 / 400 Balance 300 / 300 150 / 450 675 / 675 Weight last 48 hrs Weight 80 kg Weight 80 kg Weight 80 kg Weight 80.5 kg Weight 85 kg Physical Exam 2 Narrative: General: Alert and oriented, lying with mild to moderate distress due to shortness of breath. However able to speak in full sentences HEENT: Normocephalic, atraumatic, grossly unremarkable exam Cardio: Sinus tachycardia, normal S1-S2 without any murmurs, rubs, or gallops. Respiratory: Normal vesicular breathing without any wheezes or stridor however having bibasal inspiratory crepitations up to mid zone and wet cough GI: Abdomen soft, nontender, nondistended, normoactive bowel sounds present all 4 quadrants, Neuro: intact cranial nerves motor and sensory and cerebellar/coordination function without any focal neurological deficit Behavior: Appropriate and cooperative Extremities: 3+ pedal edema reaching above knees, adequate capillary refill present Urinary Catheter Management: Segal: Cath Placed During This Visit: yes Reason for Continuing Indwelling Catheter: Accurate Measurement of Urinary Output in Critically Ill Patients Urinary Catheter Date of Insertion: 07/15/25 Data 07/19/25 06:56 07/19/25 06:56 Micro: Microbiology 07/17/25 12:35 Catheter Tip Culture - Final Other Source 07/15/25 07:30 Gram Stain - Final Peritoneal Fluid Body Fluid Culture - Final 07/18/25 23:00 Occult Blood (FIT) - Final Stool - Stool Aspirate 07/16/25 07:30 Anaerobic Culture - Preliminary Pleural Fluid A&P Assessment and plan 1. Acute hypoxemic respiratory failure: Most likely in setting of congestive heart failure. And undergoing second dialysis now. Nearly resolved hypoxemia PleurX catheter removed 07/16/[address] Villarreal Patient was failing peritoneal dialysis with poor fluid return Nuclear test shows fixed scar. Oxygen supplementation keeping saturation over 90%. She will be 7 L negative in 2 days following today's dialysis 2. Sepsis: Now stable Follow-up blood culture which are thus far negative from July 15. Follow- up peritoneal fluid studies and Gram stain and culture. MRSA swab was negative discontinue vancomycin Continue Zosyn for now but peritoneal dialysis catheter tip also negative for infection currently at 1 day 3. Malignant hypertension: Goal blood pressure less than 140/90 mmHg. Blood pressure stable for now. Continue with home dose of Coreg, hydralazine, lisinopril, nifedipine. Needed nicardipine overnight. Currently blood pressure stable. Nicardipine discontinued. 4. Pulmonary edema: Continue hemodialysis. Portable chest x-ray in the morning 5. Recurrent right pleural effusion: Right PleurX catheter removed continue with hemodialysis 6. Presence of stent in LAD coronary artery: Continued dual antiplatelet therapy but monitor for source of potential bleeding. Stool ask will be obtained 7. PAD (peripheral artery disease): Patient on aspirin and clopidogrel and statins Patient need medication confirmation reconciliation before resuming home medications 8. Peritonitis due to infected peritoneal dialysis catheter, subsequent encounter: Likely. Follow-up fluid studies as above. Antibiotics as above. Abdominal exam is benign she is currently on single agent Zosyn 9. Inflammatory arthritis: Continue home dose duloxetine and other analgesics after reconciliation 10. Anemia due to chronic kidney disease, on chronic dialysis: Hematocrit is acutely dropping to 24 from 27. Unclear etiology. She is receiving Epogen and will also have stool guaiacs. Hold off on transfusion and continue dual antiplatelet therapy. Iron level was 42% sat 27% which is normal Plan: Full code Renal dialysis diet. Protonix for PUD prophylaxis Heparin drip will be sufficient for DVT prophylaxis Plan for the day: Acute hypoxic respiratory failure resolving. Continue with hemodialysis as per outpatient set up on Tuesday, , Tuesday. Appreciate nephrology recommendations. Goal blood pressure less than 140/90 mmHg. Blood pressure is elevated. Continue with current dose of Coreg, hydralazine. Change to losartan 100 mg oral daily, add clonidine 0.1 mg twice daily. Change nifedipine to 90 mg extended release daily. Uptitrate as for goal blood pressure. Hemoglobin 7.8. Target hemoglobin more than 8. Will plan for possible transfusion along with dialysis if hemoglobin continues to remain below 8. Stool for occult blood positive though patient does not have any overt symptoms of acute anemia. Discussed with cardiology. Plan to continue with Plavix. Hold off on aspirin. Patient is more than 6 months out of her last PCI. Start on Protonix twice daily, Carafate ACHS. She will follow-up as an outpatient with monitoring of her hemoglobin in the next 1 month and if it continues to remain low or trend down she will follow-up as an outpatient with surgery for possible colonoscopy. Follow-up cultures. For now continue with current IV antibiotics we will plan to transition to oral antibiotics for 14-day course on discharge. Discharge plan: Plan to discharge in next 24 hours after repeat session of dialysis so that she can follow-up as an outpatient for her chair time being set up on Tuesday, and Tuesday. PDMP PDMP Reviewed: Not Reviewed Attestations 2 Medical Necessity Statement*: Requires further hospitalization for management of hypoxic respiratory failure in setting of congestive heart failure due to inadequate dialysis while being transitioned to hemodialysis, uncontrolled hypertension, anemia Diagnoses Acute hypoxemic respiratory failure J96.01 Sepsis A41.9 Malignant hypertension I10 Pulmonary edema J81.1 Recurrent right pleural effusion J90 Presence of stent in LAD coronary artery Z95.5 PAD (peripheral artery disease) I73.9 Peritonitis due to infected peritoneal dialysis catheter, subsequent encounter T85.71XD; K65.9 Encounter type: subsequent encounter Inflammatory arthritis M13.80 Anemia due to chronic kidney disease, on chronic dialysis N18.6; D63.1; Z99.2 Anemia type: due to chronic kidney disease Chronic kidney disease stage: on chronic dialysis
--- NOTE | 2025-07-19 15:01 | PC.OT ---
PATIENT DEMONSTRATED ABILITY TO PERFORM ADLS WITHOUT ASSISTANCE. HAS NO QUESTIONS OR CONCERNS ABOUT ADL PERFORMANCE FOR D/C TO HOME. PATIENT DOES NOT REQUIRE FURTHER SKILLED OT AT THIS TIME AND IS AGREEABLE TO D/C. D/C SKILLED OT SERVICES
--- NOTE | 2025-07-19 23:05 | PC.NURSE ---
Blood Pressure Patient's blood pressure remaining elevated, currently at 198/92. Dr. Neff contacted; orders received for 20 mg hydralazine IVP once as well as 100 losartan PO once now.
[2025-07-19] MEDS: LOSARTAN 100 MG TABLET PO (23:23)
[2025-07-20] VITALS (24 sets, daily range): BP systolic 147–184; BP diastolic 65–100; PULSE 75–83; RESP 14–24; TEMP 36.9–37.2; O2SAT 93–97
[2025-07-20 04:27] LABS: Hematocrit 26.4 % (36-47); Hemoglobin 8.20 g/dL (11.27-16.99); Mean Corpuscular HGB Conc 31.1 g/dL (30-55); Mean Corpuscular Hemoglobin 27.0 pg (27-33); Mean Corpuscular Volume 86.8 fl (85-98); Nucleated Red Blood Cells % 0 %; Platelet Count 390 10^3/cmm (157-399); Red Blood Count 3.04 10^6/uL (3.85-5.65); White Blood Count 8.66 10^3/uL (3.29-11.43)
[2025-07-20 05:05] LABS: Alanine Aminotransferase 7 U/L (0-33); Albumin Level 3.2 g/dL (3.5-5.2); Alkaline Phosphatase 84 U/L (35-105); Anion Gap 18.0 (5-19); Aspartate Amino Transferase 11 U/L (0-32); Blood Urea Nitrogen 33 mg/dL (6-20); Calcium 8.8 mg/dL (8.5-10.5); Carbon Dioxide 24 mmol/L (22-29); Chloride 97 mmol/L (98-107); Globulin 2.8 g/dL (1.3-4.6); Glucose 129 mg/dL (65-115); Osmolality Calculated 289 mOsm/kg (285-295); Potassium 4.0 mmol/L (3.5-5.1); Sodium 135 mmol/L (136-145); Total Protein 6.0 g/dL (6.6-8.7)
[2025-07-20 05:06] LABS: Creatinine Clr Calc Pharmacy 14.0022
[2025-07-20] MEDS: piperacillin-tazobactam 2.25 GM in sodium chloride 0.9% (plus) 50 ML IV (05:24)
[2025-07-20] MEDS: NIFEdipine ER (24 hr) 30 mg Tablet 90 MG PO (05:25)
[2025-07-20] MEDS: pantoprazole 40 mg SDV IVP (07:20)
--- NOTE | 2025-07-20 08:16 | P.DS_ITS ---
Discharge Providers Date of Admission: 07/15/25 18:24 Date of Discharge: July 20, 2025 Attending Provider at Admission: Liudmila Shaw MD Attending Provider at Discharge: Lawson Diaz MD Consults: Cardiology: Dr. Ramirez Telemetry nephrology Surgery: Dr. Favian Garcia Pulmonary: Dr. Fernando Primary Care Provider: SEGUN Mulligan Diagnoses at Discharge Discharge Diagnosis 1. Malignant hypertension: 2. Presence of stent in LAD coronary artery: 3. Diastolic heart failure: 4. Hyperlipidemia: Reason for Visit Reason for Visit: SOB Brief History: Per HPI: Lizy Evans is a 54 year old female history of end-stage renal disease on peritoneal dialysis, CAD, diabetes and recurrent right pleural effusion who presented to the emergency room with severe progressive shortness of breath over the past 2 days. The patient explained that she is on peritoneal dialysis and her dialysis was not adequate yesterday. Usually she has full 3 bags out of her peritoneum but this time it was partially drained. There was no cloudiness of her peritoneal drainage catheter, any fevers or chills. The patient reported having orthopnea and PND. But no chest pain/chest pressure, headaches blurriness of vision or any focal deficit. She also reported mild trace pedal edema. Of note:patient had right thoracoscopy with pleural biopsy, right pleurodesis with PleurX placement on 06/27/2025. Her daughter is a registered nurse and reported they are been only 10-20 cc of fluid coming from the PleurX on the daily drainage. And there was no issue with the drainage as per the patient. Patient reported that she has been feeling great since the pleurodesis until 2 days ago when she started to have progressive shortness of breath and she noticed that her ultrafiltration on the procedure dialysis went down. Patient presented to the ED with shortness of breath and was found to have elevated blood pressure with systolic above 200. Her proBNP came back more than 70,000. Chest x-ray showed bilateral opacification most consistent with flash pulmonary edema likely secondary to inadequate peritoneal dialysis. He was also found to have leukocytosis. Nephrology was consulted and started on dialysis. Prevention sales agent fire insurance and criminal researcher on board as well. Hospital Course Hospital Course Patient was admitted to the hospital further evaluation and management of hypoxic respiratory failure. Pulmonary cause was ruled out with CT chest not showing significant pleural effusion. Pulmonary was consulted and PleurX was removed on 07/16. Given concern for recent PCI cardiology was consulted and [id number] overnight was ruled out with stable troponins, echocardiogram negative for regional wall motion abnormality. Patient did undergo cardiac stress test which was negative for acute ischemia. It is believed her shortness of breath is most likely in setting of inadequate dialysis as patient is on peritoneal dialysis at home. Further discussions were done and patient regarding complete transition to hemodialysis to which she was agreeable. PD fluid was consistent with possible PD peritonitis. She was started on broad- spectrum antibiotics. Blood culture, fluid cultures so far been negative. PD catheter was removed after surgery consultation. Patient has maintained on hemodialysis and her respiratory status has been at baseline for last 48 to 72 hours. Patient has chair time on Tuesday, and Tuesday. Last dialysis on Friday 07/20. She has been discharged in hemodynamically stable condition on oral linezolid and Levaquin for 2 weeks with advised to hold Cymbalta while being on linezolid. During hospitalization her antihypertensives were adjusted. She did have episode of anemia which is thought to be in setting of renal dysfunction and platelet dysfunction due to ESRD. Stool for occult blood is positive. As patient's hemoglobin remained stable she did not require EGD or colonoscopy. She is to check her hemoglobin and 2 weeks. If continues to trend down she should have a colonoscopy/EGD as an outpatient. Aspirin has been discontinued. Physical Exam Narrative: General: Alert and oriented, lying with mild to moderate distress due to shortness of breath. However able to speak in full sentences HEENT: Normocephalic, atraumatic, grossly unremarkable exam Cardio: Sinus tachycardia, normal S1-S2 without any murmurs, rubs, or gallops. Respiratory: Normal vesicular breathing without any wheezes or stridor however having bibasal inspiratory crepitations up to mid zone and wet cough GI: Abdomen soft, nontender, nondistended, normoactive bowel sounds present all 4 quadrants, Neuro: intact cranial nerves motor and sensory and cerebellar/coordination function without any focal neurological deficit Behavior: Appropriate and cooperative Extremities: 3+ pedal edema reaching above knees, adequate capillary refill present Urinary Catheter Management: Segal: Cath Placed During This Visit: yes, but has since been removed by the nurse Reason for Continuing Indwelling Catheter: Decision to DC Catheter Urinary Catheter Date of Insertion: 07/15/25 Date Urinary Catheter Removed: 07/19/25 Time Urinary Catheter Discontinued: 19:45 Discharge Data Studies Completed and Pending Completed Studies During Hospitalization Category Date Time Status CT chest wo con [id number] Routine Cat Scan 07/16/25 08:29 Completed Cardiac Stress Test MIBI [Sestamibi Stress Test Request Exams 07/16/25 16:06 Draft ] Routine XR chest 1V portable [id number] Routine Exams 07/19/25 08:00 Completed XR chest 1V portable [id number] Stat Exams 07/15/25 16:19 Completed NM zaheer perf SPECT r/s* [id number] Routine Nuc Med 07/17/25 16:06 Completed CV. echo complete* [id number] Routine Ultrasound 07/16/25 22:49 Completed Pending at discharge Category Date Time Status Amylase, Pleural Fluid Routine Lab 07/16/25 07:30 Received Anaerobic Culture Routine Lab 07/16/25 07:30 Results Blood Culture Stat Lab 07/15/25 17:44 Results Blood Culture Stat Lab 07/15/25 23:20 Results Fungal Culture not HR/SK/BL Routine Lab 07/16/25 07:30 Received Mycobacteria, Culture w/Fluor Routine Lab 07/16/25 07:30 Received Cytology [PTH] Routine Pth 07/16/25 16:02 Received Radiology Impressions Chest CT 07/16/25 08:29 IMPRESSION: 1. Diffuse new groundglass opacifications with scattered more focal consolidations throughout both lungs most likely due to pulmonary edema. 2. Small bilateral pleural effusions, LEFT greater than RIGHT. 3. No change in the RIGHT Pleurx catheter position. 4. No pneumothorax. 5. Cardiomegaly, moderate. 6. Dialysis catheter is present. Tip of the dialysis catheter is very closely associated with the tricuspid valve plane. Catheter tip placement has not changed over multiple prior radiographs. 7. Indeterminate mediastinal and hilar lymph nodes. Lymph nodes have slightly increased in size since the prior study. Chest X-Ray 07/19/25 08:00 IMPRESSION: Significant decrease in the bilateral lung opacities compatible with resolving pulmonary edema. Residual chest abnormalities as above. Laboratory Results WBC 8.66 10^3/uL (3.29-11.43) 07/20/25 04:11 RBC 3.04 10^6/uL (3.85-5.65) L 07/20/25 04:11 Hgb 8.20 g/dL (11.27-16.99) L 07/20/25 04:11 Hct 26.4 % (36-47) L 07/20/25 04:11 MCV 86.8 fl (85-98) 07/20/25 04:11 MCH 27.0 pg (27-33) 07/20/25 04:11 MCHC 31.1 g/dL (30-55) D 07/20/25 04:11 RDW 15.9 % (12.1-15.1) H 07/20/25 04:11 Plt Count 390 10^3/cmm (157-399) 07/20/25 04:11 MPV 9.8 fL (7.4-10.4) 07/20/25 04:11 Neut % (Auto) 61.9 % 07/20/25 04:11 Lymph % (Auto) 22.5 % 07/20/25 04:11 Whitman % (Auto) 7.7 % 07/20/25 04:11 Eos % (Auto) 5.3 % 07/20/25 04:11 Baso % (Auto) 0.9 % 07/20/25 04:11 Neut # (Auto) 5.35 10^3/uL (1.8-7.7) 07/20/25 04:11 Lymph # (Auto) 2.0 10^3/uL (0.8-4.8) 07/20/25 04:11 Whitman # (Auto) 0.7 10^3/uL (0.2-0.9) 07/20/25 04:11 Eos # (Auto) 0.5 10^3/uL (0.0-0.8) 07/20/25 04:11 Baso # (Auto) 0.1 10^3/uL (0.0-0.1) 07/20/25 04:11 Nucleated RBC % (auto) 0 % 07/20/25 04:11 Nucleated RBCs # 0.0 /100WBC 07/20/25 04:11 Differential Comment Yes 07/16/25 07:30 APTT 67.9 SECONDS (23.9-36.7) H 07/17/25 00:33 Sodium 135 mmol/L (136-145) L 07/20/25 04:11 Potassium 4.0 mmol/L (3.5-5.1) 07/20/25 04:11 Chloride 97 mmol/L (98-107) L 07/20/25 04:11 Carbon Dioxide 24 mmol/L (22-29) 07/20/25 04:11 Anion Gap 18.0 (5-19) 07/20/25 04:11 BUN 33 mg/dL (6-20) H 07/20/25 04:11 Creatinine 4.7 mg/dL (0.5-0.9) H 07/20/25 04:11 GFR Calculation 9.7 mL/min (90-130) L 07/20/25 04:11 Glucose 129 mg/dL (65-115) H 07/20/25 04:11 POC Glucose 181 mg/dL (70-110) H 07/20/25 00:53 Calculated Osmolality 289 mOsm/kg (285-295) 07/20/25 04:11 Lactic Acid 0.9 mmol/L (0.5-2.2) 07/15/25 17:44 Calcium 8.8 mg/dL (8.5-10.5) 07/20/25 04:11 Phosphorus 3.5 mg/dL (2.5-4.5) 07/18/25 03:34 Magnesium 1.8 mg/dL (1.7-2.3) 07/19/25 06:56 Iron 42 ug/dL (37-145) 07/15/25 17:44 TIBC 155 mcg/dl 07/15/25 17:44 % Saturation 27.0 % (20-50) 07/15/25 17:44 Unsat Iron Binding 113 ug/dL (112-347) 07/15/25 17:44 Ferritin 1752 ng/mL (15-150) H 07/15/25 17:44 Total Bilirubin 0.2 mg/dL (0.15-1.2) 07/20/25 04:11 AST 11 U/L (0-32) 07/20/25 04:11 ALT 7 U/L (0-33) 07/20/25 04:11 Alkaline Phosphatase 84 U/L (35-105) 07/20/25 04:11 Troponin T Baseline 306 ng/L (0-10) H* 07/16/25 04:20 Troponin T 120 Minute 309.3 ng/L (0-10) H 07/16/25 06:13 Delta Troponin T 3.3 ABS# (0-10) 07/16/25 06:13 Troponin T Hi Sens 6Hr 369.7 ng/L (0-10) H 07/16/25 10:51 Troponin T Hi Sens 6Hr Delta 63.7 ng/L (0-12) H* 07/16/25 10:51 C-Reactive Protein 64.7 mg/L (0.0-4.9) H 07/15/25 17:44 NT-Pro-B Natriuret Pep > 82586 pg/mL (0-125) H 07/15/25 17:44 Total Protein 6.0 g/dL (6.6-8.7) L 07/20/25 04:11 Albumin 3.2 g/dL (3.5-5.2) L 07/20/25 04:11 Globulin 2.8 g/dL (1.3-4.6) 07/20/25 04:11 Triglycerides 89 mg/dL (0-150) 07/17/25 00:33 Cholesterol 92 mg/dL (0-200) 07/17/25 00:33 LDL Cholesterol, Calc 35 mg/dL (50-129) L 07/17/25 00:33 Total VLDL Cholesterol 18 mg/dL (0-30) 07/17/25 00:33 HDL Cholesterol 39 mg/dL (60-100) L 07/17/25 00:33 Cholesterol/HDL Ratio 2.36 mg/dL (0.0-4.40) 07/17/25 00:33 Procalcitonin 0.15 ng/mL (0-0.5) 07/15/25 17:44 TSH 7.84 uIU/mL (0.27-4.20) H 07/15/25 17:44 Free T4 1.03 ng/dL (0.82-1.77) 07/15/25 20:00 Free T3 1.5 PG/ML (2.0-4.4) L 07/15/25 20:00 PTH Intact 164.2 pg/mL (15-65) H 07/15/25 17:44 Calcium (PTH Intact) 9.1 mg/dL (8.5-10.5) 07/15/25 17:44 Fluid Color Yellow 07/16/25 07:30 Fluid Appearance Cloudy 07/16/25 07:30 Fluid Specific Grav 1.020 07/16/25 07:30 Fluid pH 7.0 07/16/25 07:30 Fluid WBC 359 /uL 07/16/25 07:30 Fluid RBC 1.000 10^3/uL 07/16/25 07:30 Fld Polynuclear WBCs # 0.047 07/16/25 07:30 Fld Polynuclear WBCs % 13.100 % 07/16/25 07:30 Fl Mononucl WBCs #(Auto) 0.312 07/16/25 07:30 Fl Mononuclear % Auto 86.900 % 07/16/25 07:30 Fld Crystal Laterality Peritoneal fluid 07/16/25 07:30 Fluid Glucose 166.0 mg/dL 07/16/25 07:30 Fluid Albumin 1.3 g/dL 07/16/25 07:30 Fluid LDH 123 U/L 07/16/25 07:30 Fluid Alk Phosphatase 15 IU/L 07/16/25 07:30 Fluid Cholesterol 21 mg/dL (0-200) 07/16/25 07:30 Fluid Triglycerides 16 mg/dL (0-150) 07/16/25 07:30 Fluid Uric Acid 4 mg/dL 07/16/25 07:30 Peritoneal Amylase Cancelled 07/16/25 07:30 Pleural Total Protein 2.4 g/dL 07/16/25 07:30 Nasal MRSA (PCR) Not detected (Not Detecte) 07/16/25 22:36 Random Vancomycin 15.2 ug/mL (20.0-40.0) L 07/20/25 04:11 Hep Bs Antigen Non-reactive (Nonreactive) 07/15/25 17:44 Hep Bs Antibody 603.5 (11.5-1000) 07/15/25 17:44 Hepatitis C Antibody Non-reactive (Nonreactive) 07/15/25 17:44 Vitals Last Vital Signs Temp 99 F 07/20/25 04:00 Pulse 80 07/20/25 06:18 Resp 17 07/20/25 06:00 BP 179/76 07/20/25 06:00 Pulse Ox 95 07/20/25 06:00 O2 Del Method Room Air 07/20/25 01:30 O2 Flow Rate 2 07/18/25 16:00 Discharge Plan Discharge Patient Disposition: Home Condition: Stable Prescriptions: New losartan 50 mg Tablet 100 mg PO DAILY 30 Days Qty: 60 0RF nifedipine 30 mg Tablet Extended Release 24hr 90 mg PO DAILY 30 Days Qty: 90 0RF clonidine HCl 0.1 mg Tablet 0.1 mg PO TID 30 Days Qty: 90 0RF carvedilol 12.5 mg Tablet 18.75 mg PO BID 30 Days Qty: 90 0RF pantoprazole [Protonix] 40 mg tablet,delayed release (DR/EC) 40 mg PO QAM Qty: 60 0RF Rx Instructions: Twice daily for next 2 weeks followed by once daily levofloxacin 750 mg tablet 750 mg PO Q24H 14 Days Qty: 14 0RF linezolid 600 mg tablet 600 mg PO BID 14 Days Qty: 28 0RF sucralfate [Carafate] 1 gram tablet 1 g PO TID 84 Days Qty: 252 0RF Continued (DME) diabetic shoes with 3 inserts See Rx Instructions .Route .MEDSUPPLY Qty: 1 0RF Rx Instructions: As directed to the shoe gulonnie calcitriol 0.25 mcg capsule 0.25 mcg PO DAILY RenaPlex-D 800 mcg-12.5 mg -2,000 unit tablet 1 tab PO DAILY sodium bicarbonate 650 mg tablet 650 mg PO BID (DME) FreeStyle Palak 3 Plus Sensor Device See Rx Instructions .Route Qty: 2 3RF Rx Instructions: As directed clopidogrel 75 mg tablet 75 mg PO DAILY Qty: 90 3RF insulin aspart U-100 [Novolog FlexPen U-100 Insulin] 100 unit/mL (3 mL) insulin pen See Rx Instructions .ROUTE .COMPLEX Qty: 15 0RF Rx Instructions: Inject, subcut, 3 times daily, after meals, based on low-dose sliding scale cetirizine 10 mg Tablet 10 mg PO DAILY PRN (Reason: Allergy Symptoms) torsemide 100 mg tablet 100 mg PO DAILY sevelamer carbonate 800 mg tablet 800 mg PO TID hydralazine 50 mg tablet 100 mg PO TID atorvastatin 40 mg tablet 40 mg PO DAILY Rx Instructions: TAKE 1 TABLET BY MOUTH ONCE DAILY AT 5PM gentamicin 0.1 % cream See Rx Instructions .ROUTE .COMPLEX Rx Instructions: APPLY TO PD (PERITONEAL DIALYSIS) SITE ONCE A DAY (APPLY AFTER CLEANING SITE). albuterol sulfate 90 mcg/actuation HFA aerosol inhaler 1 puff INHALATION BID PRN (Reason: Shortness Of Breath Or Wheezing) ondansetron 4 mg tablet,disintegrating 4 mg PO Q6H PRN (Reason: Nausea And Vomiting) Held duloxetine 30 mg capsule,delayed release(DR/EC) 30 mg PO .q am Qty: 30 3RF Hold Instructions: Resume on 08/06/25. Rx Instructions: Take one capsule by mouth once a day; stop 60 mg dose Discontinued nifedipine 60 mg tablet extended release 60 mg PO DAILY aspirin 81 mg capsule 81 mg PO DAILY Qty: 90 3RF omeprazole 20 mg Capsule,Delayed Release(Dr/Ec) 20 mg PO DAILY lisinopril 40 mg tablet 40 mg PO DAILY Rx Instructions: Take 1 tablet by mouth once daily carvedilol 25 mg tablet 12.5 mg PO BID 30 Days Qty: 30 0RF Discharge Order = DC NOW: Discharge Order (Routine); Ordered 07/20/25 Ordered By: Lawson Diaz Referrals: [facility] - [Outside] - 07/23/25 1:00 pm Referral Note: Your dialysis schedule is currently Tuesday, , and Tuesday @ 1:00pm. Winter Ramirez MD [Physician, Cardiology] - 1 month Joellen Hill FNP [Primary Care Provider, Family Practice] - 7-10 days Patient Instructions: Acute Wound Care (DC), Opioid Safety, Post Anesthesia Care, Patient Portal & Barak Instructions Activity Restrictions/Additional Instructions: She should have hemoglobin and 2 weeks. If continues to trend down she should have a colonoscopy/EGD as an outpatient. Continuing Plavix as before. Aspirin has been discontinued. Antihypertensives have been adjusted. Dose of Coreg has been increased to 18.75 mg twice daily. Losartan has been added. Lisinopril has been discontinued. Nifedipine has been changed to 90 mg daily. Take Protonix 40 mg twice daily along with Carafate ACHS for next 4 weeks. Omeprazole has been discontinued. Clonidine has been added to medication list. Goal blood pressure less than 140/90 mmHg. Monitor blood pressure daily and maintain a blood pressure diary. Linezolid and Levaquin IV antibiotics for next 14 days. Do not take Cymbalta while being on linezolid. Discharge Attestations Time Spent in Discharge Care*: greater than 30 min Specific Discharge Activities: educating patient, discussing with pcp/other providers, discussing with comp field case manager/social workers/dc planners, documenting/other paperwork and evaluating patient/reviewing data Status at Discharge: Cognitive status at discharge: cognitively intact , Behavioral status at discharge: cooperative , Functional status at discharge: independent ambulation , Overall status at discharge: patient is back to baseline Quality Metrics Clinical Quality Measures [ No reported AMI, CVA or VTE this stay] Coding Level of Care Code 86554 Total time (in minutes) for Discharge: 70 Diagnoses Malignant hypertension I10 Presence of stent in LAD coronary artery Z95.5 Diastolic heart failure I50.30 Hyperlipidemia E78.5
[2025-07-20] MEDS: heparin, porcine 1,000 unit/mL INJ 10 mL 1000 UNIT IV (09:10)
[2025-07-20] MEDS: heparin, porcine 1,000 unit/mL INJ 10 mL 10000 UNIT INTRACATH (09:11)
--- NOTE | 2025-07-20 09:51 | P.PN_ITS ---
Subjective 2 Subjective: getting HD Medications: Reviewed: Yes Vitals/I&O/Wt Last Vital Signs Temp 98.4 F 07/20/25 09:07 Pulse 79 07/20/25 09:07 Resp 16 07/20/25 09:07 BP 181/87 07/20/25 09:07 Pulse Ox 96 07/20/25 08:00 O2 Del Method Room Air 07/20/25 08:00 O2 Flow Rate 2 07/18/25 16:00 07/19/25 07/20/25 07/20/25 22:59 06:59 14:59 Intake Total 50 / 725 Output Total 135 / 135 250 / 385 Balance -85 / 590 -250 / 340 Weight last 48 hrs Weight 82 kg Weight 80 kg Weight 80 kg Weight 80 kg Physical Exam 2 Narrative: Patient sitting up . HEENT normocephalic atraumatic neck is supple positive JVP Right sided permacath lungs have dull bases. Heart positive S1-S2. Abdomen is soft positive bowel sounds positive left-sided peritoneal dialysis catheter. Extremities 1+ edema. Neuro awake and alert oriented x 3. Urinary Catheter Management: Segal: Cath Placed During This Visit: yes, but has since been removed by the nurse Reason for Continuing Indwelling Catheter: Decision to DC Catheter Urinary Catheter Date of Insertion: 07/15/25 Date Urinary Catheter Removed: 07/19/25 Time Urinary Catheter Discontinued: 19:45 Data 07/20/25 04:11 07/20/25 04:11 Micro: Microbiology 07/16/25 07:30 Anaerobic Culture - Preliminary Pleural Fluid 07/17/25 12:35 Catheter Tip Culture - Final Other Source 07/15/25 07:30 Gram Stain - Final Peritoneal Fluid Body Fluid Culture - Final A&P Assessment and plan 1. ESRD (end stage renal disease) on dialysis: 54-year-old lady diabetes hypertension heart failure preserved EF, peripheral tibial disease pleural effusions recurrent s/p PleurX cathete placement few weeks ago -- > presented due to PleurX catheter is not draining. Patient has ESRD she was supposed to be transition to hemodialysis she is back on peritoneal dialysis. Patient had a recent similar admission where she improved with hemodialysis. Patient now presents with volume overload hypertension shortness of breath. 1. ESRD : was on PD , patient having recurrent admissions due to volume overload and also patient reports that PD fluid drainage has decreased. Discussed with patient's hat and cap opener Dr. Gonzales and also discussed with patient, at this point plan to transition to in center hemodialysis permanently and S/P removal of PD catheter. HD per TTS schedule 2. Acute on chronic respiratory failure, history of recurrent pleural effusion. 3. HTN: bP elevated 4. Anemia : hb 7.8 , s/p Epogen Plan: Will provide hemodialysis today. PDMP PDMP Reviewed: Not Reviewed Attestations 2 Medical Necessity Statement*: per [facility] Coding Level of Care Code Acute Code for Chg Fwd Diagnoses ESRD (end stage renal disease) on dialysis N18.6; Z99.2
[2025-07-21 06:09] LABS: Amylase, Pleural Fluid 16 U/L
== END 2025-07-20 14:50 | disposition home or self-care (01) | DRG 907 ==
LOC: ER 19:46 → ICU 20:57
PROVIDERS: Internal Medicine; Internal Medicine Nephrology; Student in an Organized Health Care Education/Training Program; Surgery; Admitting Provider Student in an Organized Health Care Education/Training Program; Emergency Provider Emergency Medicine; PCP Registered Nurse; Visit Provider Student in an Organized Health Care Education/Training Program
PROC: 0WPG03Z Removal of Infusion Device from Peritoneal Cavity, Open Approach (ICD-10-PCS; CPT 49422; principal; 2025-07-17 11:50)
DX: T85.71XA Infection and inflammatory reaction due to peritoneal dialysis catheter, initial encounter (principal); A41.9 Sepsis, unspecified organism; R65.20 Severe sepsis without septic shock; K65.9 Peritonitis, unspecified; I50.33 Acute on chronic diastolic (congestive) heart failure; N18.6 End stage renal disease; J96.01 Acute respiratory failure with hypoxia; I13.2 Hypertensive heart and chronic kidney disease with heart failure and with stage 5 chronic kidney disease, or end stage renal disease; Y73.8 Miscellaneous gastroenterology and urology devices associated with adverse incidents, not elsewhere classified; E11.22 Type 2 diabetes mellitus with diabetic chronic kidney disease; I25.10 Atherosclerotic heart disease of native coronary artery without angina pectoris; E78.5 Hyperlipidemia, unspecified; D63.1 Anemia in chronic kidney disease; E11.40 Type 2 diabetes mellitus with diabetic neuropathy, unspecified; E11.319 Type 2 diabetes mellitus with unspecified diabetic retinopathy without macular edema; E11.51 Type 2 diabetes mellitus with diabetic peripheral angiopathy without gangrene; E11.65 Type 2 diabetes mellitus with hyperglycemia; F33.41 Major depressive disorder, recurrent, in partial remission; G89.4 Chronic pain syndrome; F41.1 Generalized anxiety disorder; Z96.652 Presence of left artificial knee joint; R19.5 Other fecal abnormalities; E87.70 Fluid overload, unspecified; I16.0 Hypertensive urgency; F43.12 Post-traumatic stress disorder, chronic; G47.00 Insomnia, unspecified; Z79.02 Long term (current) use of antithrombotics/antiplatelets; Z79.4 Long term (current) use of insulin; Z95.5 Presence of coronary angioplasty implant and graft
CPT/HCPCS: 36415; 36416; 71045; 71250; 78452; 80048; 80053; 80061; 80202; 80503; 82042; 82150; 82274; 82310; 82465; 82728; 82945; 82962; 83540; 83550; 83605; 83615; 83735; 83880; 83970; 83986; 84075; 84100; 84145; 84157; 84315; 84439; 84443; 84478; 84481; 84484; 84560; 85025; 85730; 86140; 86706; 86803; 87015; 87040; 87070; 87075; 87102; 87116; 87205; 87206; 87340; 87801; 88112; 88305; 89050; 90935; 93005; 93017; 93306; 96365; 96367; 96372; 96375; 97116; 97162; 97165; 99291; A9500; J0360; J1100; J1644; J1938; J2404; J2405; J2470; J2543; J2704; J2785; J3010; J3373; J3490; J9999; Q3014; Q5105

== ENCOUNTER → 2025-07-30 08:21 | Outpatient (BNVA) | payer OTHER, MEDICAID, SELFPAY | PROVIDERS: PCP Registered Nurse; Visit Provider Internal Medicine | DX: R06.00 Dyspnea, unspecified (principal); Z87.09 Personal history of other diseases of the respiratory system; R59.0 Localized enlarged lymph nodes; R91.8 Other nonspecific abnormal finding of lung field | CPT/HCPCS: 99214; Q3014 ==

== ENCOUNTER 2025-08-16 17:16 | Emergency (ER) | payer OTHER, MEDICAID, SELFPAY ==
--- OUTSIDE RECORDS SUMMARY | 2025-08-16 17:21 | XMS_ITS ---
Author Organization [facility] Address [address] [place] [address] Care Team Providers Care Community Health Advisor Name Role Phone Elke Patel RN Unavailable [phone] Graciela Gonzales MD Unavailable [phone] Juani Traylor MD Primary Care Pro vider Transplant Episode Kidney Candidate [facility] ([place], [place]) - [facility] Evaluation began on 08/07/2024 Marked as Active on 08/07/2024 Reason: Evaluation - Standard Kidney CoordinatorElke Patel RN Fax: N/A Email: N/A Scores Score Value Updated Exceptions/Reas ons CPRA Not available EPTS (Calc) 24 08/16/2025 Care Team Name Role Phone Fax Email Elke Patel RN Kidney Coordinator [phone] N/A N/A Mary Markham Primary Top Tile Decorator N/A N/A N/A Demetrio Forest Technician N/A N/A N/A Graciela Gonzales MD Referring Physician [phone] N/A Events Pre-Transplant Referred: 07/25/2024 Evaluation began: 08/07/2024 Dialysis History Dialysis History Start End Type Comments Center 05/28/2024 Peritoneal started 09/2024 [facility] Dialysis Center Information Center Phone Fax Address [facility] [phone] [address] [facility] [address]
--- OUTSIDE RECORDS SUMMARY | 2025-08-16 17:22 | XMS_ITS | Encounter Summary ---
Author Organization [facility] Healthcare Address [address] [place] [address] Care Team Providers Care Airport Ramp Supervisor Name Role Phone Elke Patel RN Unavailable [phone] Graciela Gonzales MD Unavailable [phone] Juani Traylor MD Primary Care Pro vider Encounter Details Date Type Department Care Team (Late st Contact Info) Description 08/13/2025 Telephone [facility] Transplant Kidney [address] [facility] [phone] [place] [address] Elke Patel RN [address] [facility] [address] [place] [address] Social History Tobacco Use Types Packs/Day Years Used Date Smoking Tobacco: Never Smokeless Tobacco: Never [facility] Utilities Answer Date Recorded In the past 12 months has e electric, gas, oil, or water company threatened [...] often do you attend chur ch or protestant services? Patient declined 12/02/2024 Do you belong to any clubs o r organizations such as christianity groups, unions, fraternal or athletic groups, or [...] any time in the past 12 m [facility], were you homeless or living in a intermediate (including now)? No 12/02/2024 Personal Safety Answer [...] on file documented as of this encounter Miscellaneous Notes * Telephone Encounter - Elke Patel RN - 08/13/2025 11:56 AM CDT Returned patient call. She said that she is working on getting the colonoscopy set up. She is scheduled to update her mammogram in September. I suggested we wait until her cancer screenings are completed then we will bring her back to [facility] to update her testing and be seen again in clinic. She agreed to this plan. documented in this encounter Plan of Treatment Not on file documented as of this encounter Visit Diagnoses Not on filedocumented in this encounter Care Teams Airport Ramp Supervisor Relationship Specialty Start Date End Date Juani Traylor MD [address] [facility] [address] [place] [address] PCP - General Transplant 11/15/24 Elke Patel, RN [address] [facility] [address] [place], [place] [id number] Cs Associate 07/25/24 Graciela Gonzales MD [address] [place] [address] Nephrology 07/25/24 documented as of this encounter
--- OUTSIDE RECORDS SUMMARY | 2025-08-16 17:22 | XMS_ITS | Encounter Summary ---
Author Organization [facility], [facility] Address [address] [place] [address] Phone Care Team Providers Care Lending Activities Supervisor Name Role Phone Joellen Hill NP Primary Care Provider [phone] Encounter Details Date Type Department Care Team (Late st Contact Info) Description 08/13/2025 Treatment [facility], [facility] [address] [place] [address] Graciela Gonzales MD [address] [place] [address] End stage renal disease; Dependence on renal dialysis Social History Tobacco Use Types Packs/Day Years [...] as of this encounter Miscellaneous Notes * Dialysis Note - Graciela Gonzales MD - 08/13/2025 12:00 AM CDT Patient: LIZY EVANS, 1970, 54y, F Dialysis Location: [facility] Attending Population Geneticist: Graciela Gonzales Service Date: 08/13/2025 Service Provider: Graciela Gonzales MD I met face to face with the patient today. OVERVIEW The patient presented with ESRD on dialysis Primary cause of renal failure: Type 2 diabetes mellitus with diabetic chronic kidney disease Comments: She has transitioned back to HD for she was not doing well with PD. It was difficult for her to do all of her treatments. She is on carafate and protonix. She is to have a colonoscopy. Has follow up with pulmonary. Medications and labs reviewed. LAST HOSPITALIZATION Discharge Diagnosis: I50.30 Unspecified diastolic (congestive) heart failure E78.5 Hyperlipidemia, unspecified I10 Essential (primary) hypertension Admission Date 07/15/25 Discharge Date 07/20/25 TRANSPLANT Comments: Referred to [facility] in October. She has seen [facility] and is still in process of workup. DIALYSIS PRESCRIPTION IHD 3x Week Start date: 08/10/25 Dialyzer: 180NRe Optiflux BFR: 450 DFR: Manual 800 Potassium: 3.0 Sodium: 137 EDW: 79.7 Duration: 4:00 Calcium: 2.5 Bicarb: 35 Rx updated on: 08/10/2025 Comments: Stable. TREATMENT ASSESSMENT Comments: BPs stable after UF. BP Stand Pre 08/10/2025: 154/73 08/06/2025: 136/58 BP Sit Pre 08/10/2025: 157/102 08/08/2025: 134/57 08/06/2025: 155/63 BP Stand Post 08/10/2025: 155/55 08/08/2025: 116/51 08/06/2025: 101/60 BP Sit Post 08/10/2025: 187/78 08/08/2025: 116/56 08/06/2025: 99/53 Prescribed Tx time 08/10/2025: 4:00 08/08/2025: 4:00 08/06/2025: 4:00 Tx Duration 08/10/2025: 4:03 08/08/2025: 4:05 08/06/2025: 4:02 Missed Treatments 0 - last 30 days 0 - last 60 days FLUID ASSESSMENT Comments: Still with good UOP 500 ml. Did increase Torsemide to 100 mg daily. EDW (kg) 08/10/2025: 80.0 08/08/2025: 80.0 08/06/2025: 80.0 Weight Pre (kg) 08/10/2025: 82.0 08/08/2025: 82.9 08/06/2025: 83.4 Weight Post (kg) 08/10/2025: 79.7 08/08/2025: 79.8 08/06/2025: 80.6 PWV (kg) 08/10/2025: -0.3 08/08/2025: -0.2 08/06/2025: 0.6 UF Rate (mL/kg/hr) 08/10/2025: 7.1 08/08/2025: 9.5 08/06/2025: 8.6 ADEQUACY ASSESSMENT Comments: Stable at goal. spKt/V, URR 07/25/2025: 1.95, 81.0 Urine Cr Clearance 06/19/2025: 1.0 04/02/2025: 1.0 01/17/2025: 2.9 ACCESS ASSESSMENT Access Type: CVCatheter Access SubType: Tunneled Access Status: Active (In Use) - 06/26/2025 Access Location: Chest Placed: --/--/---- Vascular access reviewed. Current access is temporary and referral has been made for fistula/graft placement. ANEMIA ASSESSMENT Comments: On IV iron and POLLY protocol. POLLY has been initiated post hospital D/C On carafate and protonix. For colonoscopy. HGB 08/08/2025: 7.6 08/01/2025: 7.5 07/27/2025: 7.0 Ferritin 07/25/2025: 709.0 04/16/2025: 1293.0 01/17/2025: 1455.0 Mircera, IVP (mcg) 07/30/2025: 75 05/22/2025: 200 Iron Sucrose (Venofer) (mg) 08/10/2025: 100 08/08/2025: 100 08/06/2025: 100 BMM ASSESSMENT Comments: Stable. At goal. PTH, Intact 07/25/2025: 180.0 04/16/2025: 212.0 01/17/2025: 198.0 Calcium, Phosphorus 07/25/2025: 8.0, 3.0 06/19/2025: 7.7, 10.4 05/22/2025: 8.4, 9.6 NUTRITION ASSESSMENT Comments: Ed to increase protein in diet. Potassium, Albumin 07/25/2025: 4.7, 3.0 06/19/2025: 3.5, 3.2 05/22/2025: 4.1, 3.5 eNPCR 07/25/2025: 0.95 PHYSICAL EXAM Exam Performed. Vital Signs Reviewed. CV - Blood pressure noted. EXT - No edema. EXT - No ulcers. DIAGNOSIS Chief Complaint: N18.6 End stage renal disease Patient is stable. Patient data updated 08/13/2025 at 3:04 PM Signed By: Graciela Gonzales MD on 08/13/2025 3:08:06 PM documented in this encounter Plan of Treatment Not on file documented as of this encounter Visit Diagnoses Diagnosis End stage renal disease Dependence on renal dialysis documented in this encounter Care Teams Lending Activities Supervisor Relationship Specialty Start Date End Date Joellen Hill NP [address] [place] [address] PCP - General Family Medicine 09/15/23 documented as of this encounter
--- OUTSIDE RECORDS SUMMARY | 2025-08-16 17:22 | XMS_ITS | Encounter Summary ---
Author Organization [facility] Healthcare Address [address] [place] [address] Care Team Providers Care Cushion Mat Maker Name Role Phone Elke Patel RN Unavailable [phone] Graciela Gonzales MD Unavailable [phone] Juani Traylor MD Primary Care Pro vider Encounter Details Date Type Department Care Team (Late st Contact Info) Description 08/12/2025 Telephone [facility] Transplant Kidney [address] [facility] [address] [place] [address] Mariel Long Social History Tobacco Use Types Packs/Day Years Used Date Smoking Tobacco: Never Smokeless Tobacco: Never [facility] Utilities Answer Date Recorded In the past 12 months has [employer] electric, gas, oil, or water company threatened [...] often do you attend chur ch or yazidi services? Patient declined 12/02/2024 Do you belong to any clubs o r organizations such as hoahaoism groups, unions, fraternal or athletic groups, or [...] any time in the past 12 m [facility], were you homeless or living in a residential (including now)? No 12/02/2024 Personal Safety Answer [...] encounter Miscellaneous Notes * Telephone Encounter - Mariel Long - 08/12/2025 7:35 AM CDT patient left voicemail on after hours line on Tuesday at 419 PM requesting a call back from coordinator regarding: Patient called to see if she was still a patient wants to know if she needs to do anything else documented in this encounter Plan of Treatment Not on file documented as of this encounter Visit Diagnoses Not on filedocumented in this encounter Care Teams Cushion Mat Maker Relationship Specialty Start Date End Date Juani Traylor MD [address] [facility] [address] [place] [address] PCP - General Transplant 11/15/24 Elke Patel, RN [address] [facility] [address] [place] [address] Inspection Supervisor 07/25/24 Graciela Gonzales MD [address] [facility] [address] [place] [address] Nephrology 07/25/24 documented as of this encounter
--- OUTSIDE RECORDS SUMMARY | 2025-08-16 17:22 | XMS_ITS | Encounter Summary ---
Author Organization [facility], [facility] Address [address] [place] [address] Phone Care Team Providers Care Inspector Open Die Name Role Phone Joellen Hill NP Primary Care Provider [phone] Encounter Details Date Type Department Care Team (Late st Contact Info) Description 09/15/2023 Orders Only [facility] [address] [place] [address] Type 2 diabetes mellitus with [...] (HCC) documented in this encounter Care Teams Inspector Open Die Relationship Specialty Start Date End Date Joellen Hill NP [address] [place] [address] PCP - General Family Medicine 09/15/23 documented as of this encounter
--- OUTSIDE RECORDS SUMMARY | 2025-08-16 17:22 | XMS_ITS | Clinical Summary ---
Author Organization [facility] Facility Address [address] [address] Care Team Providers Care Acid Maker Name Role Phone Joellen Hill NP Primary Care Provider [phone] Allergies Active Allergy Reactions Criticality Noted Date Comments Bee Venom High 09/13/2023 Other Reaction(s): ALGY-Redness of Skin Codeine Nausea And Vomiting High 03/02/2013 Other Reaction(s): ADR-Vomiting Latex Rash High 03/02/2013 Other Reaction(s): ALGY-Rash Morphine Nausea And Vomiting High 01/29/2012 Other Reaction(s): ADR-Vomiting Propoxyphene High 09/13/2023 Other Reaction(s): ADR-Vomiting Medications atorvastatin (LIPITOR) 40 MG tablet 40 mg 3 Active Cholecalciferol (Vitamin D) 50 MCG (1999) capsule 2,000 Units 0 Active insulin regular (HumuLIN R) 500 UNIT/ML CONCENTRATED injection .COMPLEX 3 Active lisinopril 20 MG tablet Take 40 mg by mouth 1 (one) time each day 3 Active aspirin (ST GORDON) 81 MG EC tablet Take 81 mg by mouth in the morning. Active clopidogrel (PLAVIX) 75 MG tablet Take 75 mg by mouth in the morning. Active famotidine-calciu m carb-mag hydroxide (PEPCID COMPLETE) 10-800-165 MG chewable tablet Chew 1 tablet 4 Active hydrALAZINE 100 MG tablet Take 100 mg by mouth in the morning and 100 mg in the evening and 100 mg before bedtime. 5 Active Multiple Vitamins-Minerals (RenaPlex) tablet Take by mouth Active NIFEdipine CC (ADALAT CC) 60 MG 24 hr tablet Take 60 mg by mouth in the morning. Active sevelamer carbonate (RENVELA) 800 MG tablet Take 800 mg by mouth in the morning and 800 mg at noon and 800 mg in the evening. Take with meals. Active calcitriol (ROCALTROL) 0.25 MCG capsule Take [...] in the evening. Take with meals. Active Encounters Date Type Department Care Team Description 08/15/2025 Orders Only [facility], [facility] [address] [place] [phone] Graciela Gonzales MD 08/13/2025 Treatment [facility], [facility] [address] [place] [phone] Graciela Gonzales MD End stage renal disease; Dependence on renal dialysis 08/08/2025 Orders Only [facility], [facility] [address] [place] [phone] Graciela Gonzales MD 08/06/2025 Treatment [facility], [facility] [address] [place] [phone] Araceli Swanson NP End stage renal disease; Dependence on renal dialysis 08/01/2025 Orders Only [facility], [facility] [address] [place] [address] Graciela Gonzales MD 07/27/2025 [facility], [facility] [address] [place] [address] Graciela Gonzales MD 07/25/2025 Orders [facility], [facility] [address] [place] [address] Graciela Gonzales MD 07/23/[address] [place] [address], [facility] [address] [place] [address] Nancie Stanley, STEPHANIE End stage renal disease; Dependence on renal dialysis 07/09/2025 TCM in Dialysis Clinic [address] [place] [address], [facility] [address] [place] [address] Graceila Gonzales MD 07/03/2025 [facility]phone [facility], [facility] [address] [place] [address] Graciela Gonzales MD 06/24/[address] [place] [address], [facility] [address] [place] [phone] Graciela Gonzales MD End stage renal disease; Dependence on renal dialysis 06/19/2025 Orders Only [facility], [facility] [address] [place] [address] Graciela Gonzales MD 06/05/[address] [place] [address], [facility] [address] [place] [address] Graciela Gonzales MD End stage renal disease; Dependence on renal dialysis 05/22/2025 Orders Only [facility], [facility] [address] [place] [address] Graciela Gonzales MD from Last [...] Vaccine (#1) 2025 12/05/2019 Diabetes: Hemoglobin A1C 10/25/2025 025, 04/30/2025, 04/29/2025, Additional history exists Procedures Procedure Name Priority Date/Time Associated Diagnosis Comments HEMATOLOGY Routine 08/15/2025 HEMATOLOGY Routine 08/08/2025 HEMATOLOGY Routine 08/01/2025 HEMATOLOGY Routine 07/27/2025 [facility] RESULTS Routine 07/25/2025 HD KINETICS Routine 07/25/2025 POST CHEMISTRY Routine 07/25/2025 SPECIAL CHEMISTRY Routine 07/25/2025 HEMATOLOGY Routine 07/25/2025 TRACE ELEMENTS Routine 07/25/2025 IMMUNO CHEMISTRY Routine 07/25/2025 SPECIAL CHEMISTRY Routine 07/25/2025 CHEMISTRY Routine 07/25/2025 CHEMISTRY Routine 07/25/2025 URINE CLEARANCE Routine 06/19/2025 PD ADEQUACY Routine 06/19/2025 PDF CHEMISTRY Routine 06/19/2025 PD ADEQUACY Routine 06/19/2025 CHEMISTRY Routine 06/19/2025 IMMUNO CHEMISTRY Routine 06/19/2025 HEMATOLOGY Routine 06/19/2025 PATIENT INFORMATION Routine 06/19/2025 PATIENT INFORMATION Routine 06/19/2025 PATIENT INFORMATION Routine 06/19/2025 CHEMISTRY Routine 05/22/2025 IMMUNO CHEMISTRY Routine 05/22/2025 HEMATOLOGY Routine 05/22/2025 from Last 3 Months Results * (ABNORMAL) HEMATOLOGY (08/15/2025) Only the most recent of7 resultswithin the time period is included. Hemoglobin 6.2(L) 12.0 - 16.0 g/dL [facility] Hemoglobin x 3 18.6(L) 36.0 - 48.0 % [facility] 08/15/2025 08/16/2025 9:1 3 AM CDT Narrative [facility] - 08/16/2025 Unless otherwise specified, test(s) performed at: [facility], [address] [place] [address] HOSIERY BAGGER: Christiano Magallon M.D. For any questions, please call customer service at FREQUENCY:OTHER Resulting Agency Comment Specimen source: Blood us Graciela Gonzales MD LAB BLOOD ORDERABLES Final Re sult Performing Organization Address [facility] de Phone Number [facility] See order comments or contact performing lab Unknown, [place] * (ABNORMAL) HD KINETICS (07/25/2025) Pathologist [facility] [place] % Urea Reduction 81(H) 65 - 80 % [facility] 07/25/2025 07/27/2025 10: 53 AM CDT Narrative Resulting Agency Comment Specimen source: Plasma us Graciela Gonzales MD LAB BLOOD ORDERABLES Final Re sult Performing Organization Address [facility] de Phone Number [facility] See order comments or contact performing lab Unknown, [place] * (ABNORMAL) SPECIAL CHEMISTRY (07/25/2025) Only the most recent of2 resultswithin the time period is included. Pathologist [facility] Hemoglobin A1C 6.1(H) 4.8 - 5.9 % [facility] 07/25/2025 07/26/2025 10: 50 AM CDT Narrative [facility] - 07/26/2025 Unless otherwise specified, test(s) performed at: [facility], [address] [place], [place] [id number] HOSIERY BAGGER: Christiano Magallon M.D. For any questions, please call customer service at FREQUENCY:MONTHLY Resulting Agency Comment Specimen source: Blood Result Jojo Gonzales MD LAB BLOOD BANK TEST ORDERABLE S Final Result Performing Organization Address [facility] de Phone Number [facility] See order comments or contact performing lab Unknown, [place] * POST CHEMISTRY (07/25/2025) Pathologist [facility] BUN Post Dialysis 9 6 - 19 mg/dL [facility] 07/25/2025 07/27/2025 10: 53 AM CDT Narrative [facility] - 07/27/2025 Unless otherwise specified, test(s) performed at: [facility], [address] [place] [id number] HOSIERY BAGGER: Christiano Magallon M.D. For any questions, please call customer service at FREQUENCY:MONTHLY Resulting Agency Comment Specimen source: Plasma Graciela Gonzales MD LAB BLOOD ORDERABLES Final Re sult [facility] See order comments or contact performing lab Unknown, [place] * IMMUNO CHEMISTRY (07/25/2025) Only the most recent of3 resultswithin the time period is included. [facility] Hepatitis C Antibody Nonreactive Nonreactive [facility] Comment: No HCV antibody detected. The above test result was obtained using Siemens Centaur XP chemiluminescent method. Results obtained with different assay methods or kits cannot be used interchangeably. S/CO Ratio 0.04 0.00 - 0.79 [facility] Comment: s/co ratio Interpretation Supplemental testing <0.80 Nonreactive No further testing required. 0.80-0.99 Equivocal HCV RNA Quantitative Real-Time PCR is recommended. 1.00->11.00 Reactive HCV RNA Quantitative Real-Time PCR is recommended to distinguish active from resolved cases. 07/25/2025 07/26/2025 10: 57 AM CDT Narrative Resulting Agency Comment Specimen source: Serum Graciela Gonzales MD LAB BLOOD ORDERABLES Final Re sult [facility] See order comments or contact performing lab Unknown, [place] * (ABNORMAL) TRACE ELEMENTS (07/25/2025) [facility] Aluminum 37(H) 0 - 10 mcg/L [facility] Comment: This test was developed and its performance characteristics determined by [facility]. It has not been cleared or approved by the FDA. The laboratory is regulated under CLIA as qualified to perform high complexity testing. This test is used for clinical purposes. It should not be regarded as investigational or for research. Verified by repeat analysis. Questionable result; result is significantly different from previous value. 07/25/2025 07/26/2025 10: 20 AM CDT Narrative [facility] - 07/26/2025 Unless otherwise specified, test(s) performed at: [facility], [address] [place] [address] HOSIERY BAGGER: Christiano Magallon M.D. For any questions, please call customer service at FREQUENCY:MONTHLY Resulting Agency Comment Specimen source: Serum us Graciela Gonzales MD LAB BLOOD ORDERABLES Final Re sult [facility] See order comments or contact performing lab Unknown, [place] * (ABNORMAL) [facility] Chemistry (07/25/2025) Only the most recent of4 resultswithin the time period is included. BUN 48(H) 6 - 19 mg/dL [facility] Creatinine 5.55(H) 0.60 - 1.30 mg/dL [facility] BUN/Creatinine Ratio 8.6(L) 10.0 - 20.0 [facility] Sodium 141 136 - 145 mEq/L [facility] Potassium 4.7 3.5 - 5.1 mEq/L [facility] Chloride 103 96 - 108 mEq/L [facility] Bicarbonate (CO2) 24 22 - 29 mEq/L [facility] Calcium 8.0(L) 8.4 - 10.2 mg/dL [facility] Corrected Calcium 8.8 8.4 - 10.2 mg/dL [facility] Comment: Corrected Calcium is not equivalent to measured Ionized Calcium. Phosphorus 3.0 2.6 - 4.5 mg/dL [facility] Calcium Phosphorus Product 24 0 - 54 [facility] Calcium Phosporus Product, Cor 26 0 - 54 [facility] Alkaline Phosphatase 63 35 - 104 U/L [facility] Total Protein 6.3 6.0 - 8.5 g/dL [facility] Albumin 3.0(L) 3.5 - 5.2 g/dL [facility] Globulin, Total 3.3 2.0 - 4.0 g/dL [facility] A/G Ratio 0.9(L) 1.0 - 2.0 [facility] Glucose 134(H) 70 - 100 mg/dL [facility] Magnesium 1.8 1.6 - 2.6 mg/dL [facility] Ferritin 709(H) 10 - 291 ng/mL [facility] Iron 32 30 - 160 mcg/dL [facility] UIBC 137(L) 155 - 355 mcg/dL [facility] TIBC 169(L) 185 - 515 mcg/dL [facility] Iron Saturation (TSat) 19(L) 20 - 55 % [facility] 07/25/2025 07/26/2025 10: 57 AM CDT Narrative [facility] - 07/26/2025 Unless otherwise specified, test(s) performed at: [facility], [address] [place] [address] HOSIERY BAGGER: Christiano Magallon M.D. For any questions, please call customer service at FREQUENCY:MONTHLY Resulting Agency Comment Specimen source: Serum Graciela Gonzales MD LAB BLOOD ORDERABLES Final Re sult [facility] See order comments or contact performing lab Unknown, [place] * [facility] Lab Results (07/25/2025) [facility] eKt/V Got 1.72 [facility] e Center nPCR_HD 1.07 [facility] spKt/V Got 1.98 [facility] PCR 58.84 [facility] eKt/V ([place]) 1.71 [facility] eNPCR 0.95 [facility] spKt/V (Daugirdas II) 1.95 [facility] WSTDKT/V 2.0 [facility] eKdrt/V 1.79 [facility] 07/25/2025 07/25/2025 [facility] Ordering Provider LAB BLOOD ORDERABLES Final Result [facility] Center Contact Performing lab Unknown, [place] * (ABNORMAL) URINE CLEARANCE (06/19/2025) Pathologist [facility] Urea Nitrogen, Urine Timed 252 mg/dL [facility] [...] LAB URINE ORDERABLES Final Re sult [facility] See order comments or contact performing lab [...] values have been corrected for glucose interference. [facility] glucose correction factor for creatinine is [...] STOOLS OR DERABLES Edited Result - Final Performing Organization Address [facility] Co de Phone Number [employer] [facility] See order comments or contact performing lab Unknown, [place] * PD ADEQUACY (06/19/2025) Only the most recent of2 resultswithin the time period is included. Pathologist [facility] Kt/V, Residual 0.19 [facility] Creat Clear, Urine Nor Wkly 10 L/wk [facility] 06/19/2025 06/20/2025 2:3 8 PM CDT Narrative [facility] - 06/21[facility]2025 Unless otherwise specified, test(s) performed at: [place] [address] HOSIERY BAGGER: Christiano Magallon M.D. For any questions, please call customer service at FREQUENCY:MONTHLY Resulting Agency Comment Specimen source: Urine us Graciela Gonzales MD LAB BODY FLUIDS AND STOOLS OR DERABLES Final Result Performing Organization Address [facility] de Phone Number [employer] [facility] See order comments or contact performing lab Unknown, [place] * PATIENT INFORMATION (06/19/2025) Only the most recent of3 resultswithin the time period is included. [facility] Patient BSA 1.67 sq. M. [facility] Comment: Normalized values are calculated using the patient's actual BSA and normalized to the average BSA of 1.73m2. 06/19/2025 06/20/2025 3:3 4 PM CDT Narrative [facility] - 06/20/2025 Unless otherwise specified, test(s) performed at: [facility], [address] [place] [address] HOSIERY BAGGER: Christiano Magallon M.D. For any questions, please call customer service at FREQUENCY:MONTHLY Resulting Agency Comment Specimen source: PD Fluid us Graciela Gonzales MD LAB BLOOD ORDERABLES Final Re sult [facility] See order comments or contact performing lab Unknown, [place] from Last 3 Months Insurance Dual Complete Choice [place] ([id number]) Care Teams Acid Maker Relationship Specialty Start Date End Date Joellen Hill NP [address] [place] [address] PCP - General Family Medicine 09/15/23
--- OUTSIDE RECORDS SUMMARY | 2025-08-16 17:22 | XMS_ITS | Clinical Summary ---
Author Organization [facility] Address [address] [place] [address] Care Team Providers Care Home Energy Auditor Name Role Phone Elke Patel RN Unavailable [phone] Graciela Gonzales MD Unavailable Juani Traylor MD [...] mouth 09/25/20 24 Active FreeStyle [place] 3 [place] misc as directed 10/08/20 24 Active [employer]Style [...] Encounters Date Type Department Care Team Description 08/13/2025 Telephone [facility] Transplant Kidney [address] [facility] [address] [phone] [place] [address] Elke Patel, RN 08/13/2025 Telephone [facility] Transplant [facility]ney [address] [facility] [address] [phone] [place] [address] Elke Patel RN 08/12/2025 Telephone [facility] Transplant [facility]ney [address] [facility] [address] [phone] [place] [address] Elke Patel, RN 08/12/2025 Telephone [facility] Transplant Kidney [address] [facility] [address] [phone] [place] [address] Mariel Long from Last 3 Months Immunizations Immunization Administration Dates Next Due Hep B Vaccine 04/18/2024 Influenza, Quadrivalent, Rec ombinant, Egg Free, Preservative Free, Intramuscular 12/05/2019 Pneumococcal Conjugate Pcv20 05/18/2024 Surgical History Surgery Date Site/Laterality Comments US GUIDED THORACENTESIS 04/30/2025 N/A Social History Tobacco Use Types Packs/Day Years Used Date Smoking Tobacco: Never Smokeless Tobacco: Never [employer] Utilities Answer Date Recorded In the past 12 months has [employer], [employer], or water [employer] threatened to shut off services in your [...] 12/02/2024 How often do you attend chur or jain services? Patient declined 12/02/2024 Do you belong to any clubs o r organizations such as tenriism groups, unions, fraternal or athletic groups, or [...] any time in the past 12 m [facility], were you homeless or living in a chcf (including now)? No 12/02/2024 Personal Safety Answer [...] Comments Blood Pressure 160/83 11/15/2024 12:40 PM [facility] Pulse 89 11/15/2024 12:40 PM [facility] Temperature 36.4 C (97.5 F) 11/15/2024 12:40 PM [facility] Respiratory Rate - - Oxygen Saturation - - Inhaled Oxygen Concentration - - Weight 100.2 kg (221 lb) 11/15/2024 12:40 PM [facility] Height 162.6 cm (5' 4 ) 11/15/2024 12:40 PM [facility] Body Mass Index 37.93 11/15/2024 12:40 PM [facility] Plan of Treatment Health Maintenance Due Date Last Done Comments Breast Cancer Screening-Mammogram 1970 Cervical Cancer Screening 1970 Colon Cancer Screening-Colonoscopy 1970 Depression Screening 1970 Regular Well Visit/Exam 18-64 1988 Zoster Vaccine (1 of 2) 2020 Influenza Vaccine (#1) 2025 , 12/05/2019, 06/25/2016, Additional history exists DTaP/Tdap/Td Vaccine (2 - Td or Tdap) 12/05/2029 12/05/2019 Pneumococcal vaccine <65 Aged Out 05/18/2024, 11/17 No longer eligible based on patient's age to complete this topic Hepatitis B Screening Completed 11/15/2024 , 09/19/2024, 08/22/2024, Additional history exists Hepatitis C Screening Completed 11/15/2024 Procedures Procedure Name Priority Date/Time Associated Diagnosis Comments HEPATITIS C ANTIBODY Routine 11/15/2024 2:39 PM [facility] End stage renal disease (HCC) from Last 3 Months or Most Recently Relevant to Health Maintenance Results * Hepatitis C antibody Blood (11/15/2024 2:39 PM [facility]) Hep C Ab Nonreactive Nonreactive Comment:Antibodies to HCV no t detected. Does NOT exclude the possibility of recent exposure to HCV. Current interpretive data was last revised on 22 Blood 11/15/2024 2:39 PM [facility] 11/15/2024 3:15 PM [facility] Katie [facility] - 11/15/2024 4:03 PM [facility] This lab is being obtained as part of a Kidney transplant evaluation, is time sensitive, and should only be drawn during the evaluation visit at [facility]. us Juani Hoyos MD LAB MICROBIOLOGY - GENERAL ORDERABLES Final Result [facility] Department [place] [address] from Last 3 Months or Most Recently Relevant to Health Maintenance Insurance [place] [facility] DUAL COMPLETE [id number] TRANSPLANT [employer] MED[place] RISK [place] [employer] [place] [id number] [place] [facility] TRANSPLANT [employer] MEDICARE RISK TRANSPLANT [employer] [place]K [place] [employer] Care Teams Home Energy Auditor Relationship Specialty Start Date End Date Juani Traylor MD [address] [facility] [address] [place] [address] PCP - General Transplant 11/15/24 Elke Patel, RN [address] [place] [address] Cane Piler 07/25/24 Graciela Gonzales MD [facility] [address] [place] [address] Nephrology 07/25/24
--- OUTSIDE RECORDS SUMMARY | 2025-08-16 17:22 | XMS_ITS | Encounter Summary ---
Author Organization [facility], [facility] Address [address] [place] [address] Phone Care Team Providers Care Recenterer Name Role Phone Joellen Hill NP Primary Care Provider [phone] Encounter Details Date Type Department Care Team (Late st Contact Info) Description 07/09/2025 [facility] [address] [place] [address] Graciela Gonzales MD [address] [place] [address] Social History Tobacco Use Types [...] LIZY EVANS, 1970, 54y, F Dialysis Location: [facility] Attending Scanner Supervisor: Graciela Gonzales Service Date: 07/09/2025 Service Provider: [...] on filedocumented in this encounter Care Teams Recenterer Relationship Specialty Start Date End Date Joellen Hill NP [address] [place] [address] PCP - General Family Medicine 09/15/23 documented as of this encounter
--- OUTSIDE RECORDS SUMMARY | 2025-08-16 17:22 | XMS_ITS | Encounter Summary ---
Author Organization [facility] Address [address] [place] [address] Care Team Providers Care Reading Intervention Teacher Name Role Phone Elke Patel RN Unavailable [phone] Graciela Gonzales MD Unavailable [phone] Juani Traylor MD Primary Care Pro vider Encounter Details Date Type Department Care Team (Late st Contact Info) Description 08/12/2025 Telephone [facility] Trans[facility] Kidney [address] [facility] [address] [phone] [place] [address] Elke Patel RN [address] [facility] [address] [place] [address] Social History Tobacco Use Types Packs/Day Years Used Date Smoking Tobacco: Never Smokeless Tobacco: Never [facility] Utilities Answer Date Recorded In the [...] often do you attend chur ch or voodoo services? Patient declined 12/02/2024 Do you belong to any clubs o r organizations such as yazidi groups, unions, fraternal or athletic groups, or [...] any time in the past 12 m [facility], were you homeless or living in a snf (including now)? No 12/02/2024 Personal Safety Answer [...] Telephone Encounter - Elke Patel RN - 08/12/2025 8:16 AM CDT Called leaving a detailed message asking for a return call to discuss updating some of her testing (walk study, CT scan, oxalate, ABO) patient required a colonoscopy as well. Will see if she has donethis. documented in this encounter Plan of Treatment Not on file documented as of this encounter Visit Diagnoses Not on filedocumented in this encounter Care Teams Reading Intervention Teacher Relationship Specialty Start Date End Date Juani Traylor MD [address] [facility] [address] [place], [place] [id number] PCP - General Transplant 11/15/24 Elke Patel, RN [address] [facility] [address] [place], [place] [id number] Manager Wellness 07/25/24 Graciela Gonzales MD [address] [facility] [address] [place] [address] Nephrology 07/25/24 documented as of this encounter
--- OUTSIDE RECORDS SUMMARY | 2025-08-16 17:22 | XMS_ITS | Encounter Summary ---
Author Organization [facility] Healthcare Address [address] [place] [address] Care Team Providers Care Potato Chip Fryer Name Role Phone Elke Patel RN Unavailable [phone] Graciela Gonzales MD Unavailable [phone] Juani Traylor MD Primary Care Pro vider Encounter Details Date Type Department Care Team (Late st Contact Info) Description 08/13/2025 Telephone [facility] [address] [facility] [address] [place] [address] Elke Patel RN [address] [facility] [address] [place] [address] Social History Tobacco Use Types Packs/Day Years Used Date Smoking Tobacco: Never Smokeless Tobacco: Never [facility] Utilities Answer Date Recorded In the [...] often do you attend chur ch or pentecostal services? Patient declined 12/02/2024 Do you belong to any clubs o r organizations such as congregation groups, unions, fraternal or athletic groups, or [...] any time in the past 12 m [facility], were you homeless or living in a [...] Encounter - Elke Patel RN - 08/13/2025 10:23 AM CDT Called leaving another asking for a return call to discuss remaining testing needed to complete her evaluation documented in this encounter Plan of Treatment Not on file documented as of this encounter Visit Diagnoses Not on filedocumented in this encounter Care Teams Potato Chip Fryer Relationship Specialty Start Date End Date Juani Traylor MD [address] [facility] [address] [place] [address] PCP - General Transplant 11/15/24 Elke Patel, RN [address] [facility] [address] [place], [place] [id number] Print Operator 07/25/24 Graciela Gonzales MD [address] [facility] [address] [place] [address] Nephrology 07/25/24 documented as of this encounter
--- OUTSIDE RECORDS SUMMARY | 2025-08-16 17:22 | XMS_ITS | Encounter Summary ---
Author Organization [facility], [facility] Address [address] [place] [address] Phone Care Team Providers Care Land Leveler Name Role Phone Joellen Hill NP Primary Care Provider + [phone] Encounter Details Date Type Department Care Team (Late st Contact Info) Description 08/15/2025 Orders Only [facility] [address] [place] [address] Graciela Gonzales MD [address] [place] [address] Social History Tobacco Use Types [...] on file documented as of this encounter Procedures Procedure Name Priority Date/Time Associated Diagnosis Comments HEMATOLOGY Routine 08/15/2025 documented in this encounter Results * (ABNORMAL) HEMATOLOGY (08/15/2025) Hemoglobin 6.2(L) 12.0 - 16.0 g/dL [facility] Hemoglobin x 3 18.6(L) 36.0 - 48.0 % [facility] 08/15/2025 08/16/2025 9:1 3 AM CDT Narrative SANTI - 08/16/2025 Unless otherwise specified, test(s) performed at: [facility], [address] [place], [place] [id number] SLAB INSTALLER: Christiano Magallon M.D. For any questions, please call customer service at FREQUENCY:OTHER Resulting Agency Comment Specimen source: Blood us Graciela Gonzales MD LAB BLOOD ORDERABLES Final Re sult [facility] See order comments or contact performing lab Unknown, [place] documented in this encounter Visit Diagnoses Not on filedocumented in this encounter Care Teams Land Leveler Relationship Specialty Start Date End Date Joellen Hill NP [address] [place] [address] PCP - General Family Medicine 09/15/23 documented as of this encounter
--- OUTSIDE RECORDS SUMMARY | 2025-08-16 17:22 | XMS_ITS | Encounter Summary ---
Author Organization [facility], [facility] Address [address] [place] [address] Phone Care Team Providers Care Concrete Block Mason Name Role Phone Joellen Hill NP Primary Care Provider + [phone] Encounter Details Date Type Department Care Team (Late st Contact Info) Description 08/08/2025 Orders Only [facility] [address] [place] [address] Graciela Gonzales MD [address] [place] [address] Social History Tobacco Use Types [...] Priority Date/Time Associated Diagnosis Comments HEMATOLOGY Routine 08/08/2025 documented in this encounter Results * (ABNORMAL) HEMATOLOGY (08/08/2025) Hemoglobin 7.6(L) 12.0 - 16.0 g/dL [facility] Hemoglobin x 3 22.8(L) 36.0 - 48.0 % [facility] 08/08/2025 08/09/2025 8:4 6 AM CDT Narrative SANTI - 08/09/2025 Unless otherwise specified, test(s) performed at: [facility], [address] [place], [place] [id number] CURBSTONE SETTER: Christiano Magallon M.D. For any questions, please call customer service at FREQUENCY:OTHER Resulting Agency Comment Specimen source: Blood us Graciela Gonzales MD LAB BLOOD ORDERABLES Final Re sult [facility] See order comments or contact performing lab Unknown, [place] documented in this encounter Visit Diagnoses Not on filedocumented in this encounter Care Teams Concrete Block Mason Relationship Specialty Start Date End Date Joellen Hill NP [address] [place] [address] PCP - General Family Medicine 09/15/23 documented as of this encounter
--- OUTSIDE RECORDS SUMMARY | 2025-08-16 17:22 | XMS_ITS | Clinical Summary ---
Author Organization [facility] Address [address] [facility] [address] Barnes: Epic Prelude ADT [place] [address] Care Team Providers Care Molding Associate Name Role Phone Joellen Hill TINNER HELPER Primary Care Provider Allergies Active Allergy Reactions [...] mg by mouth daily. Active vit B xlsmpfl-E-jfqyq ac-zinc (RenaPlex) 800 mcg- 12.5 mg Tablet [...] Encounters Date Type Department Care Team Description 07/30/2025 External Device Data [facility] ABSTRACTION Provider, Abstract 07/30/2025 External Device Data [facility] ABSTRACTION Provider, Abstract 07/23/2025 External Device Data [facility] ABSTRACTION Provider, Abstract 07/15/2025 5:05 AM CDT - 07/15/2025 11:59 PM CDT Hospital Encounter [facility] [place] [address] [facility] [address] [place] [address] Ambulance, [facility] Discharge Disposition: [facility] 06/12/2025 External Device Data [place] ABSTRACTION Provider, Abstract 05/28/2025 External Device Data [place] ABSTRACTION Provider, Abstract from Last 3 Months Immunizations Immunization Administration [...] on file Legal Sex 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 Gender Identity Not on file Sexual Orientation [...] of 2) 2020 DIABETES MICROALBUMIN ANNUAL SCREEN 03/24/2025 03/24/2024 INFLUENZA VACCINE (#1) 2025 08/01/2024, 2019 DIABETES HBA1C Q 6 MONTHS 01/23/20262024, 04/30/2025, 04/29/2025, Additional history exists Medical Devices Implanted Type Area Technical Sales Representatives Device Identifier Shelf Expiration Date Model / Serial / Lot Cath Dialysis Glidepath 14.5fr 24cm Std [id number] - [id number] Implanted:Qty : 1 on 03/28/2024 by Demetrio Almaraz MD at [facility] Catheter Right: Chest BARD MARCK VASC 11/16/2025 [id number] / / [id number] Cath Pd Taqueria Curl 2cuf [id number] - [id number] Implanted:Qty : 1 on 04/26/2024 by Jones Barnett DO at [facility] Catheter N/A: Abdomen [employer] - COVIDIEN [id number] 10/04/2028 [id number] / / [id number] Cath Pd Taqueria Curl 2cuf [id number] - [id number] Implanted:Qty : 1 on 08/30/2024 by Jones Barnett DO at [facility] Catheter N/A: Abdomen [employer] - COVIDIEN [id number] 02/18/2029 [id number] / / [id number] Procedures Procedure Name Priority Date/Time Associated Diagnosis Comments HEMOGLOBIN A1C Routine 04/30/2025 4:31 AM CDT MICROALBUMIN/CREATIN INE RATIO, RANDOM UR Routine 03/24/2024 11:27 PM CDT from Last 3 Months or Most Recently Relevant to Health Maintenance Results * HEMOGLOBIN A1C (04/30/2025 4:31 AM CDT) HEMOGLOBIN A1C 5.0 <=5.6 % 05/02/2025 11:31 AM CDT [facility] EST. AVG GLUCOSE, A1C 97 mg/dL 05/02/2025 11:31 AM CDT [facility] Blood Venipuncture / Unknown 04/30/2025 4:31 AM CDT 04/30/2025 4:57 AM CDT Narrative [facility] - 05/02/2025 11:31 AM CDT HGB A1C INTERPRETATION NORMAL: <5.7% PRE-DIABETES: 5.7 - 6.4% DIABETES: 6.5% OR GREATER us Deja Marie MD CHEMISTRY ORDERABLES Final Res ult [facility] CLIA # [id number] [address] [place] [id number] * (ABNORMAL) MICROALBUMIN/CREATININE RATIO, RANDOM UR (03/24/2024 [...] Performing Organization Information: Site ID: [id number] Name: [facility] Address: [address] [address] Director: Alonzo Etienne MD us Saad Flores MD URINE ORDERABLES Final Resul t [facility] from Last 3 Months or Most Recently Relevant to Health Maintenance Insurance MEDICAID [place] D[place] COMPLETE [place] [facility] [id number] RX OPTUM RX Member Subscriber Plan / Payer (Ef fective 2023-Present) Name:Lizy Evans Relation to Subscriber:Self Name:Lizy Evans Payer ID:Not on file Group ID:[id number] Type:RX Medicare Part D Address: [place] RX INFOCROSSING Medicaid Advance Directives For more information, please contact: [phone] * Full Code (Latest Code Status on File) Date Activated Date Inactivated Comments 04/29/2025 5:50 PM 05/04/2025 2:02 PM * Full Code Date Activated Date Inactivated Comments 08/30/2024 8:44 AM 08/30/2024 12:37 PM * Full Code Date Activated Date Inactivated Comments 04/26/2024 9:38 AM 04/26/2024 2:24 PM * Full Code Date Activated Date Inactivated Comments 03/24/2024 11:30 PM 03/30/2024 6:37 PM Care Teams Molding Associate Relationship Specialty Start Date End Date Joellen Hill FNP [address] [place] [id number] PCP - General Nurse Practitioner Family 07/06/21
[2025-08-16 17:25] VITALS: BP 152/73; PULSE 77; RESP 16; TEMP 36.7; O2SAT 98; BMI 30.7
--- NOTE | 2025-08-16 17:39 | ED_ITS ---
HPI - Recheck/Abnormal Lab/Rx 2 General: Chief Complaint: Recheck/Abnormal Lab/Rx Stated Complaint: abn labs ([email or web address] Time Seen by Provider: 08/16/25 17:27 History of Present Illness: 54-year-old female with previous history of end-stage renal disease on dialysis Tuesday. She had blood work drawn yesterday she reports her hemoglobin was low at 6.2 and she was directed to the emergency room for transfusion. She has not had any weakness vital signs are stable on arrival she denies chest pain or shortness of breath with exertion. Related Data Home Medications ?Medication ?Instructions ?Recorded ?Confirmed cetirizine 10 mg tablet 10 mg PO DAILY PRN Allergy S ymptoms 05/23/24 08/23/25 calcitriol 0.25 mcg capsule 0.25 mcg PO DAILY 10/30/24 08/23/25 sevelamer carbonate 800 mg tablet 800 mg PO TID 08/23/25 torsemide 100 mg tablet 100 mg PO DAILY 12/07/2405/10 sodium bicarbonate 650 mg tablet 650 mg PO BID 08/23/25 atorvastatin 40 mg tablet 40 mg PO DAILY 06/26/2505/10 gentamicin 0.1 % topical cream See Rx Instructions .Ro lavinia .COMPLEX 06/28/25 08/23/25 vit B,C-folic ac 800 mcg-zinc 12.5 See Rx Instructions .Route .COMPLEX 08/19/25 08/23/25 mg-selen-D3 2,000 unit-vit E tablet (RenaPlex-D) nifedipine 90 mg tablet,extended 90 mg PO DAILY 08/23/25 release carvedilol 12.5 mg tablet 18.75 mg PO BID 08/21/2505/10 clonidine HCl 0.1 mg tablet 0.1 mg PO TID 08/21/2505/10 losartan 50 mg tablet 100 mg PO DAILY 08/21/2505/10 vit B,C-folic ac 800 mcg-zinc 12.5 1 tab PO DAILY 03/1008/23/25 mg-selen-D3 2,000 unit-vit E tablet (RenaPlex-D) Previous Rx's ?Medication ?Instructions ?Recorded diabetic shoes with 3 inserts #1 ea 04/18/25 insulin aspart U-100 100 unit/mL See Rx Instructions . Route 07/12/25 (3 mL) subcutaneous pen (Novolog .COMPLEX #15 mL FlexPen U-100 Insulin aspart) pantoprazole 40 mg tablet,delayed 40 mg PO QAM #60 tab s 07/20/25 release (Protonix) sucralfate 1 gram tablet (Carafate) 1 g PO TID 12 week s #252 tabs 07/20/25 blood-glucose sensor (FreeStyle #2 ea 07/31/25 Palak 3 Plus Sensor device) duloxetine 30 mg capsule,delayed 30 mg PO .q am #30 ca ps 08/12/25 release clopidogrel 75 mg tablet 75 mg PO DAILY #90 tabs 03/10 hydralazine 50 mg tablet 50 mg PO TID #270 tabs 08/21 Allergies Allergy/AdvReac Type Severity Reaction Status Date / Time venom-honey bee Allergy Severe ALGY-Redness Verified 08/16/25 17:30 of Skin marijuana (cannabis) Allergy Intermediate ADR-Nausea Verified 08/16/25 17:30 codeine AdvReac Severe ADR-Vomitin Verified 08/16/25 17:30 g morphine AdvReac Severe ADR-Vomitin Verified 08/16/25 17:30 g propoxyphene (From AdvReac Severe ADR-Vomitin Verified 08/16/25 17:30 Darvocet-N) g latex AdvReac Intermediate ALGY-Rash Verified 08/16/25 17:30 Review of Systems 2 Const: Denies: fever(s) or chills Card: Denies: chest pain Resp: Denies: dyspnea GI: Denies: abdominal pain : Denies: dysuria, urinary frequency or urinary urgency Musc: Denies: neck pain or back pain Skin/Breast: Denies: rash PFSH ED 2 PFSH: Medical History Mediastinal lymphadenopathy Anemia Sepsis Pleural effusion PAD (peripheral artery disease) Essential hypertension Peritoneal dialysis catheter in place Uncontrolled type 2 diabetes mellitus with hyperglycemia Anemia of chronic disease ESRD (end stage renal disease) Diabetic neuropathy, type II diabetes mellitus Diabetic retinopathy Bereavement Major depressive disorder, recurrent, in partial remission Psychiatric care FH: total knee replacement left HLA B27 (HLA B27 positive) High risk medication use Inflammatory arthritis Seronegative spondyloarthropathy Chronic insomnia See subjective note below. Chronic pain See subjective note below. Chronic post-traumatic stress disorder (PTSD) Generalized anxiety disorder Major depressive disorder, recurrent, moderate Surgical History History of cataract extraction History of hysterectomy for benign disease History of tonsillectomy History of appendectomy History of left knee replacement Family History Mother Hypertension Diabetes Psychiatric illness Thyroid disease Father , in his 50's Family history of premature coronary artery disease Hyperlipidemia Myocardial infarction Brother Hypertension Sister No problems noted. Denies family history of Rheumatoid arthritis Lupus Social History Smoking and tobacco/nicotine status: never used tobacco/nicotine Second hand smoke exposure: No Alcohol intake: never Substance/Drug Use: never Adopted: No Caregiver/support person: No Lives independently: No Household members: family service: No Current occupational status: unemployed and disabled Sexually active: Yes Do you think of yourself as: Straight/Heterosexual Current gender identity: Female Physical Exam 2 Const: COMMON NORMALS: no acute distress GENERAL APPEARANCE: cooperative and comfortable ORIENTATION/CONSCIOUSNESS: Yes awake, Yes oriented to person, Yes oriented to place and Yes oriented to time HENMT: COMMON NORMALS: normocephalic, atraumatic and hearing grossly normal bilaterally HEAD & SCALP: normocephalic and atraumatic Resp: COMMON NORMALS: normal respiratory effort, No retractions, No use of accessory muscles and clear to auscultation bilaterally AUSCULTATION: clear to auscultation bilaterally Cardio: COMMON NORMALS: regular rate, regular rhythm and No murmurs present (Cardio) RATE: regular rate RHYTHM: regular rhythm GI: COMMON NORMALS: Soft to palpation and No hepatosplenomegaly present A USCULTATION: Yes normoactive bowel sounds PALPATION: Yes Soft to palpation, No Tenderness to palpation present (GI), No Guarding due to palpation present (GI) and Yes No hepatosplenomegaly present Extremity: COMMON NORMALS: normal to inspection, capillary refill normal, no clubbing, cyanosis or edema, no calf tenderness and no pedal edema Neuro: SENSORIUM/ORIENTATION: Yes oriented to person, Yes oriented to place and Yes oriented to time Skin: COMMON NORMALS: no rashes or lesions noted GENERAL SKIN EXAM: no rashes or lesions noted Course 2 Vital Signs: Vital signs: Vital Signs Temperature 98.1 F 08/16/25 17:25 Pulse Rate 72 08/16/25 18:23 Respiratory Rate 16 08/16/25 17:25 Blood Pressure 152/73 08/16/25 17:25 Pulse Oximetry 97 08/16/25 18:23 Oxygen Delivery Me thod Room Air 08/16/25 17:25 MDM - Recheck/Abnormal Lab/Rx Medical Decision Making Patient has chronic anemia. Her hemoglobin today is 7.4 vital signs are normal she has no symptoms at all. Discharge home and set up outpatient transfusion. She does not require emergent transfusion at this time. Discussed with household appliance repairer arrangements made for outpatient transfusion. Medical Records I reviewed the patient's medical records. Lab Data I reviewed the patient's lab results. 08/16/25 17:46 08/16/25 17:46 Laboratory Results WBC 6.41 10^3/uL (3.29-11.43) 08/16/25 17:46 RBC 2.73 10^6/uL (3.85-5.65) L 08/16/25 17:46 Hgb 7.40 g/dL (11.27-16.99) L 08/16/25 17:46 Hct 23.5 % (36-47) L 08/16/25 17:46 MCV 86.1 fl (85-98) 08/16/25 17:46 MCH 27.1 pg (27-33) 08/16/25 17:46 MCHC 31.5 g/dL (30-55) 08/16/25 17:46 RDW 17.2 % (12.1-15.1) H 08/16/25 17:46 Plt Count 349 10^3/cmm (157-399) 08/16/25 17:46 MPV 9.9 fL (7.4-10.4) 08/16/25 17:46 Neut % (Auto) 49.4 % 08/16/25 17:46 Lymph % (Auto) 32.6 % 08/16/25 17:46 Crenshaw % (Auto) 10.5 % 08/16/25 17:46 Eos % (Auto) 6.1 % 08/16/25 17:46 Baso % (Auto) 0.9 % 08/16/25 17:46 Neut # (Auto) 3.17 10^3/uL (1.8-7.7) 08/16/25 17:46 Lymph # (Auto) 2.1 10^3/uL (0.8-4.8) 08/16/25 17:46 Crenshaw # (Auto) 0.7 10^3/uL (0.2-0.9) 08/16/25 17:46 Eos # (Auto) 0.4 10^3/uL (0.0-0.8) 08/16/25 17:46 Baso # (Auto) 0.1 10^3/uL (0.0-0.1) 08/16/25 17:46 Nucleated RBC % (auto) 0 % 08/16/25 17:46 Nucleated RBCs # 0.0 /100WBC 08/16/25 17:46 Sodium 138 mmol/L (136-145) 08/16/25 17:46 Potassium 4.6 mmol/L (3.5-5.1) 08/16/25 17:46 Chloride 93 mmol/L (98-107) L 08/16/25 17:46 Carbon Dioxide 30 mmol/L (22-29) H 08/16/25 17:46 Anion Gap 19.6 (5-19) H 08/16/25 17:46 BUN 32 mg/dL (6-20) H 08/16/25 17:46 Creatinine 3.4 mg/dL (0.5-0.9) H 08/16/25 17:46 GFR Calculation 14.1 mL/min (90-130) L 08/16/25 17:46 Glucose 148 mg/dL (65-115) H 08/16/25 17:46 Calculated Osmolality 296 mOsm/kg (285-295) H 08/16/25 17:46 Calcium 9.3 mg/dL (8.5-10.5) 08/16/25 17:46 Total Bilirubin 0.4 mg/dL (0.15-1.2) 08/16/25 17:46 AST 20 U/L (0-32) 08/16/25 17:46 ALT 8 U/L (0-33) 08/16/25 17:46 Alkaline Phosphatase 122 U/L (35-105) H 08/16/25 17:46 Total Protein 7.5 g/dL (6.6-8.7) 08/16/25 17:46 Albumin 3.8 g/dL (3.5-5.2) 08/16/25 17:46 Globulin 3.7 g/dL (1.3-4.6) 08/16/25 17:46 Blood Type Cancelled 08/16/25 17:46 Rho(D) Type Cancelled 08/16/25 17:46 Antibody Screen Cancelled 08/16/25 17:46 All radiology interpretation(s) finalized by discharge Discharge Plan Discharge Patient Disposition: Home Clinical Impression: Anemia in chronic kidney disease (CKD), End stage renal disease on dialysis Condition: Stable Prescriptions: No Action (DME) FreeStyle Palak 3 Plus Sensor Device See Rx Instructions .Route Qty: 2 12RF Rx Instructions: As directed (DME) diabetic shoes with 3 inserts See Rx Instructions .Route .MEDSUPPLY Qty: 1 0RF Rx Instructions: As directed to the shoe david calcitriol 0.25 mcg capsule 0.25 mcg PO DAILY sodium bicarbonate 650 mg tablet 650 mg PO BID insulin aspart U-100 [Novolog FlexPen U-100 Insulin] 100 unit/mL (3 mL) insulin pen See Rx Instructions .ROUTE .COMPLEX Qty: 15 0RF Rx Instructions: Inject, subcut, 3 times daily, after meals, based on low-dose sliding scale duloxetine 30 mg capsule,delayed release(DR/EC) 30 mg PO .q am Qty: 30 0RF Rx Instructions: Take one capsule by mouth every morning cetirizine 10 mg Tablet 10 mg PO DAILY PRN (Reason: Allergy Symptoms) torsemide 100 mg tablet 100 mg PO DAILY sevelamer carbonate 800 mg tablet 800 mg PO TID atorvastatin 40 mg tablet 40 mg PO DAILY Rx Instructions: TAKE 1 TABLET BY MOUTH ONCE DAILY AT 5PM gentamicin 0.1 % cream See Rx Instructions .ROUTE .COMPLEX Rx Instructions: APPLY TO PD (PERITONEAL DIALYSIS) SITE ONCE A DAY (APPLY AFTER CLEANING SITE). pantoprazole [Protonix] 40 mg tablet,delayed release (DR/EC) 40 mg PO QAM Qty: 60 0RF Rx Instructions: Twice daily for next 2 weeks followed by once daily sucralfate [Carafate] 1 gram tablet 1 g PO TID 84 Days Qty: 252 0RF Rx Instructions: for 12 weeks RenaPlex-D 800 mcg-12.5 mg -2,000 unit tablet See Rx Instructions .ROUTE .COMPLEX Rx Instructions: TAKE 1 TABLET BY MOUTH EVERY DAY (ON DIALYSIS DAYS, TAKE AFTER DIALYSIS TREATMENT) nifedipine 90 mg Tablet Extended Release 90 mg PO DAILY losartan 50 mg Tablet 100 mg PO DAILY RenaPlex-D 800 mcg-12.5 mg -2,000 unit Tablet 1 tab PO DAILY Rx Instructions: On Dialysis Day Treatmets carvedilol 12.5 mg Tablet 18.75 mg PO BID Rx Instructions: must administer with a meal/food clonidine HCl 0.1 mg Tablet 0.1 mg PO TID clopidogrel 75 mg Tablet 75 mg PO DAILY Qty: 90 0RF hydralazine 50 mg Tablet 50 mg PO TID Qty: 270 0RF Discharge Orders: Discharge ED (Routine); Ordered 08/16/25 Ordered By: Peng Farley Referrals: Joellen Hill FNP [Primary Care Provider, Family Practice] Discharge Diet: Usual diet Discharge Activity: Increase activity as tolerated Patient Instructions: Opioid Safety, Pain Management, Patient Portal & Barak Instructions Activity Restrictions/Additional Instructions: Thank you for choosing [facility] for your healthcare needs today. It is very important that you follow up as instructed or that you return to the Emergency Department should you have concerns or if your condition changes or worsens in any way. Emergency department visits are focused on emergent conditions, in some cases you may require further evaluation on an outpatient basis. You were seen in the emergency room for anemia. Your hemoglobin reported at 2.2 was 7.4 when rechecked here. You have been chronically anemic due to your kidney disease. Your vital signs are stable and do not require an emergent transfusion at this time we have made arrangements for outpatient transfusion at a later time. (Please note that included in your discharge packet is information concerning opioid safety and pain management. This information is given to all patients were discharged from the ER regardless of their discharge diagnosis or the medicines they usually take or are prescribed.) Print Language: Moldovan Coding Level of Care Code ED Camouflage Assembler for Leanna Lester
[2025-08-16 18:14] LABS: Hematocrit 23.5 % (36-47); Hemoglobin 7.40 g/dL (11.27-16.99); Mean Corpuscular HGB Conc 31.5 g/dL (30-55); Mean Corpuscular Hemoglobin 27.1 pg (27-33); Mean Corpuscular Volume 86.1 fl (85-98); Nucleated Red Blood Cells % 0 %; Platelet Count 349 10^3/cmm (157-399); Red Blood Count 2.73 10^6/uL (3.85-5.65); White Blood Count 6.41 10^3/uL (3.29-11.43)
[2025-08-16 18:23] VITALS: PULSE 72; O2SAT 97
[2025-08-16 18:35] LABS: Alanine Aminotransferase 8 U/L (0-33); Albumin Level 3.8 g/dL (3.5-5.2); Alkaline Phosphatase 122 U/L (35-105); Aspartate Amino Transferase 20 U/L (0-32); Blood Urea Nitrogen 32 mg/dL (6-20); Calcium 9.3 mg/dL (8.5-10.5); Carbon Dioxide 30 mmol/L (22-29); Chloride 93 mmol/L (98-107); Creatinine Clr Calc Pharmacy 19.6610; Globulin 3.7 g/dL (1.3-4.6); Glucose 148 mg/dL (65-115); Osmolality Calculated 296 mOsm/kg (285-295); Sodium 138 mmol/L (136-145); Total Protein 7.5 g/dL (6.6-8.7)
[2025-08-16 18:49] LABS: Anion Gap 19.6 (5-19); Potassium 4.6 mmol/L (3.5-5.1)
== END 2025-08-16 18:32 | disposition home or self-care (01) ==
PROVIDERS: Emergency Provider Family Medicine; PCP Registered Nurse
DX: E11.22 Type 2 diabetes mellitus with diabetic chronic kidney disease (principal); I12.0 Hypertensive chronic kidney disease with stage 5 chronic kidney disease or end stage renal disease; N18.6 End stage renal disease; Z99.2 Dependence on renal dialysis; D64.9 Anemia, unspecified; Z79.4 Long term (current) use of insulin; Z79.02 Long term (current) use of antithrombotics/antiplatelets
CPT/HCPCS: 36415; 80053; 85025; 86850; 86900; 99283

== ENCOUNTER → 2025-08-19 07:51 | Day surgery (SDC) | payer OTHER, MEDICAID, SELFPAY ==
[2025-08-19 08:00] VITALS: BP 234/85; PULSE 79; RESP 18; TEMP 36.2; O2SAT 92
[2025-08-19 08:20] LABS: Hematocrit 24.2 % (36-47); Hemoglobin 7.50 g/dL (11.27-16.99)
[2025-08-19 08:31] VITALS: BP 207/85; PULSE 80; RESP 16; TEMP 36.3; O2SAT 92
[2025-08-19 08:47] VITALS: BP 236/136; PULSE 82; RESP 16; TEMP 36.4; O2SAT 91
[2025-08-19 09:02] VITALS: BP 236/114; PULSE 84; RESP 16; TEMP 36.3; O2SAT 94
--- NOTE | 2025-08-19 09:04 | PC.NURSE ---
Pt seen in ER on 08/17/25, after being sent from dialysis for low hemoglobin. Hg drawn in ER noted to be 7.4. Pt scheduled for outpatient transfusion of 1 unit for Tuesday08/19/25. Upon arrival, pt short of breath. O2 at 2L via nasal cannula applied for sat of 92% on RA. BP noted to be high at 234/85. Pt end stage dialysis patient. States she hasn't taken her BP meds this morning but brought them with her to take. Pt took her home dose of Clonidine 0.1 mg po. Lung sounds clear on right side but crackles noted throughout left. Transfusion started with no reaction noted. Hg from today 7.5. Pt educated that if BP does not come down, she will need to go to ER for evaluation of hypertension and shortness of breath.
[2025-08-19 09:31] VITALS: BP 238/110; PULSE 88; RESP 16; O2SAT 88
--- NOTE | 2025-08-19 09:33 | PC.NURSE ---
ER Dr. Farley notified of pt increased BP and decreasing sat with O2 at 4 L. No new orders. Was informed to contact pt PCP. OPS leader, Julia Guthrie notified.
--- NOTE | 2025-08-19 09:35 | PC.NURSE ---
Blood stopped. Pt transferred to ER 11 via stretcher. O2 changed to 10 L via mask due to increased work of breathing and sat 86%. Sat now 92%. Pt states she can't breath. Lung sounds with crackles throughout. Pt denies itching. No rash or other signs of transfusion reaction noted. BP 190/32. Report given to VIKY Russell. Dr. Farley at bedside evaluating pt.
--- NOTE | 2025-08-19 09:40 | PC.NURSE ---
Personal belongings transferred to ER with patient include rolling walker, glasses, purse, shoes, and green bag with home medications.
== END ==
PROVIDERS: PCP Registered Nurse; Visit Provider Family Medicine
DX: Z53.8 Procedure and treatment not carried out for other reasons (principal)
CPT/HCPCS: 36415; 36430; 85014; 85018; 86850; 86900; 86920; P9016

== ENCOUNTER 2025-08-19 09:43 | Inpatient (IN) | payer OTHER, MEDICAID, SELFPAY ==
[2025-08-19] VITALS (55 sets, daily range): BP systolic 121–216; BP diastolic 53–154; PULSE 65–92; RESP 13–40; TEMP 35.8–37; O2SAT 85–100; BMI 30.2
--- NOTE | 2025-08-19 09:46 | XR_ITS ---
WS: [id number] Portable AP upright chest, 08/19/2025 Clinical Data: dyspnea/cough Comparison: Portable chest, 07/19/2025 Findings: There are dense bilateral pulmonary opacities which probably represent pulmonary edema. The heart is probably enlarged. There are bilateral pleural effusions. No nodules or masses are seen. No pneumothorax is seen. There is a right dialysis catheter which ends in the caval atrial junction. Monitor leads are on the chest wall. XR/XR chest 1V portable [id number] Impression: 1. Bilateral pulmonary opacities probably pulmonary edema. 2. Cardiomegaly and bilateral pleural effusions.
--- NOTE | 2025-08-19 09:50 | W.ED.GENADLT ---
HPI - General Adult General: Chief complaint: Shortness of Breath/Dyspnea Stated complaint: low 02 Time Seen by Provider: 08/19/25 09:45 History of Present Illness: 54-year-old female presents emergency room from outpatients. We have seen her here 3 days ago at that time she had been directed here because of report of a hemoglobin less than 7 at dialysis clinic. She was completely symptom-free. She had no overt signs of bleeding and her hemoglobin that day was 7 for when she arrived today she was 7 5 she was scheduled for 1 unit of outpatient blood. During the course of transfusion patient began to develop hypertension she had not taken her blood pressure medications she was directed to take her oral blood pressure medications. She continued to have more more difficulty and had increasing shortness of breath the point where she was put on supplemental oxygen (she usually is not on supplemental oxygen) and she began tripoding. Patient does make a small amount of urine urinated yet at outpatients. Outpatients to stop the transfusion they had gone back with blood bank and verified the blood. She denies any chest pain or abdominal pain at this time. She usually gets her dialysis on Tuesdays and Saturdays she did get her most recent course of dialysis however it was abbreviated. Associated symptoms: Deny chest pain, dyspnea or rash Related Data Home Medications ?Medication ?Instructions ?Recorded ?Confirmed cetirizine 10 mg tablet 10 mg PO DAILY PRN Allergy Symptoms 05/23/24 08/23/25 calcitriol 0.25 mcg capsule 0.25 mcg PO DAILY 10/30/24 08/23/25 sevelamer carbonate 800 mg tablet 800 mg PO TID 12/07/24 08/23/25 torsemide 100 mg tablet 100 mg PO DAILY 12/07/24 08/23/25 sodium bicarbonate 650 mg tablet 650 mg PO BID 04/16/25 08/23/25 atorvastatin 40 mg tablet 40 mg PO DAILY 06/26/25 08/23/25 vit B,C-folic ac 800 mcg-zinc 12.5 See Rx Instructions .Route .COMPLEX 08/19/25 08/23/25 mg-selen-D3 2,000 unit-vit E tablet (RenaPlex-D) nifedipine 90 mg tablet,extended 90 mg PO DAILY 08/20/25 08/23/25 release carvedilol 12.5 mg tablet 18.75 mg PO BID 08/21/25 08/23/25 clonidine HCl 0.1 mg tablet 0.1 mg PO TID 08/21/25 08/23/25 losartan 50 mg tablet 100 mg PO DAILY 08/21/25 08/23/25 vit B,C-folic ac 800 mcg-zinc 12.5 1 tab PO DAILY 08/21/25 08/23/25 mg-selen-D3 2,000 unit-vit E tablet (RenaPlex-D) Previous Rx's ?Medication ?Instructions ?Recorded diabetic shoes with 3 inserts #1 ea 04/18/25 insulin aspart U-100 100 unit/mL See Rx Instructions .Route 07/12/25 (3 mL) subcutaneous pen (Novolog .COMPLEX #15 mL FlexPen U-100 Insulin aspart) pantoprazole 40 mg tablet,delayed 40 mg PO QAM #60 tabs 07/20/25 release (Protonix) sucralfate 1 gram tablet (Carafate) 1 g PO TID 12 weeks #252 tabs 07/20/25 blood-glucose sensor (FreeStyle #2 ea 07/31/25 Palak 3 Plus Sensor device) duloxetine 30 mg capsule,delayed 30 mg PO .q am #30 caps 08/12/25 release Held on 08/28/25. Instructions: per hospitalist clopidogrel 75 mg tablet 75 mg PO DAILY #90 tabs 08/21/25 hydralazine 50 mg tablet 50 mg PO TID #270 tabs 08/21/25 azithromycin 250 mg tablet See Rx Instructions PO .COMPLEX #6 08/28/25 tabs Allergies Allergy/AdvReac Type Severity Reaction Status Date / Time venom-honey bee Allergy Severe ALGY-Redness Verified 08/16/25 17:30 of Skin marijuana (cannabis) Allergy Intermediate ADR-Nausea Verified 08/16/25 17:30 codeine AdvReac Severe ADR-Vomitin Verified 08/16/25 17:30 g morphine AdvReac Severe ADR-Vomitin Verified 08/16/25 17:30 g propoxyphene (From AdvReac Severe ADR-Vomitin Verified 08/16/25 17:30 Darvocet-N) g latex AdvReac Intermediate ALGY-Rash Verified 08/16/25 17:30 Review of Systems Const: Denies: fever(s) or chills Card: Denies: chest pain Resp: Denies: dyspnea GI: Denies: abdominal pain : Denies: dysuria, urinary frequency or urinary urgency Musc: Denies: neck pain or back pain Skin/Breast: Denies: rash PFSH ED PFSH: Medical History Mediastinal lymphadenopathy Anemia Sepsis Pleural effusion PAD (peripheral artery disease) Essential hypertension Peritoneal dialysis catheter in place Uncontrolled type 2 diabetes mellitus with hyperglycemia Anemia of chronic disease ESRD (end stage renal disease) Diabetic neuropathy, type II diabetes mellitus Diabetic retinopathy Bereavement Major depressive disorder, recurrent, in partial remission Psychiatric care FH: total knee replacement left HLA B27 (HLA B27 positive) High risk medication use Inflammatory arthritis Seronegative spondyloarthropathy Chronic insomnia See subjective note below. Chronic pain See subjective note below. Chronic post-traumatic stress disorder (PTSD) Generalized anxiety disorder Major depressive disorder, recurrent, moderate Surgical History History of cataract extraction History of hysterectomy for benign disease History of tonsillectomy History of appendectomy History of left knee replacement Family History Mother Hypertension Diabetes Psychiatric illness Thyroid disease Father , in his 50's Family history of premature coronary artery disease Hyperlipidemia Myocardial infarction Brother Hypertension Sister No problems noted. Denies family history of Rheumatoid arthritis Lupus Social History Smoking and tobacco/nicotine status: never used tobacco/nicotine Second hand smoke exposure: No Alcohol intake: never Substance/Drug Use: never Adopted: No Caregiver/support person: No Lives independently: No Household members: family service: No Current occupational status: unemployed and disabled Sexually active: Yes Do you think of yourself as: Straight/Heterosexual Current gender identity: Female Physical Exam Const: GENERAL APPEARANCE: cooperative ORIENTATION/CONSCIOUSNESS: Yes awake, Yes oriented to person, Yes oriented to place and Yes oriented to time HENMT: COMMON NORMALS: normocephalic, atraumatic and hearing grossly normal bilaterally HEAD & SCALP: normocephalic and atraumatic Resp: EFFORT & INSPECTION: Yes tachypneic, Yes respiratory distress, Yes uses accessory muscles and Yes tripod positioning AUSCULTATION: rales Cardio: COMMON NORMALS: regular rate, regular rhythm and No murmurs present (Cardio) RATE: regular rate RHYTHM: regular rhythm GI: COMMON NORMALS: Soft to palpation and No hepatosplenomegaly present AUSCULTATION: Yes normoactive bowel sounds PALPATION: Yes Soft to palpation, No Tenderness to palpation present (GI), No Guarding due to palpation present (GI) and Yes No hepatosplenomegaly present Extremity: COMMON NORMALS: normal to inspection, capillary refill normal, no clubbing, cyanosis or edema, no calf tenderness and no pedal edema Neuro: SENSORIUM/ORIENTATION: Yes oriented to person, Yes oriented to place and Yes oriented to time Skin: COMMON NORMALS: no rashes or lesions noted GENERAL SKIN EXAM: no rashes or lesions noted Course Vital Signs: Vital signs: Vital Signs Temperature 98.3 F 08/21/25 04:30 Pulse Rate 67 08/21/25 12:35 Respiratory Rate 16 08/21/25 09:45 Blood Pressure 166/71 08/21/25 12:35 Pulse Oximetry 93 08/21/25 12:35 Oxygen Delivery Me thod Nasal Cannula 08/21/25 08:16 Oxygen Flow Rate 1 08/21/25 08:16 Fraction of Inspir ed Oxygen 30 08/19/25 16:37 MDM - General Adult Medical Decision Making Patient seen initially she is hypoxic tripoding. Evaluate for congestive heart failure flash pulmonary edema acute TN hyperkalemia worsening anemia. Laboratory tests ordered including troponins CMP CBC chest x-ray BNP Patient in acute decompensated congestive heart failure. Suspect she developed flash pulmonary edema once the infusion was started. I do not believe this is a transfusion reaction. She will require emergent dialysis. Discussed with hospitalist orders have been written for expedited admission to ICU. Also contacted nephrology nephrology who will see the patient via telemed. Medical Records I reviewed the patient's medical records. Lab Data I reviewed the patient's lab results. 08/21/25 04:32 08/21/25 04:32 Radiology Impressions Chest X-Ray 08/19/25 09:46 Impression: 1. Bilateral pulmonary opacities probably pulmonary edema. 2. Cardiomegaly and bilateral pleural effusions. Laboratory Results WBC 17.40 10^3/uL (3.29-11.43) H 08/19/25 10:15 RBC 3.25 10^6/uL (3.85-5.65) L 08/19/25 10:15 Hgb 9.00 g/dL (11.27-16.99) L 08/19/25 10:15 Hct 29.3 % (36-47) L 08/19/25 10:15 MCV 90.2 fl (85-98) 08/19/25 10:15 MCH 27.7 pg (27-33) 08/19/25 10:15 MCHC 30.7 g/dL (30-55) 08/19/25 10:15 RDW 17.2 % (12.1-15.1) H 08/19/25 10:15 Plt Count 354 10^3/cmm (157-399) 08/19/25 10:15 MPV 10.1 fL (7.4-10.4) 08/19/25 10:15 Neut % (Auto) 72.0 % 08/19/25 10:15 Lymph % (Auto) 20.6 % 08/19/25 10:15 [place] % (Auto) 3.2 % 08/19/25 10:15 Eos % (Auto) 2.9 % 08/19/25 10:15 Baso % (Auto) 0.6 % 08/19/25 10:15 Neut # (Auto) 12.52 10^3/uL (1.8-7.7) H 08/19/25 10:15 Lymph # (Auto) 3.6 10^3/uL (0.8-4.8) 08/19/25 10:15 [place] # (Auto) 0.6 10^3/uL (0.2-0.9) 08/19/25 10:15 Eos # (Auto) 0.5 10^3/uL (0.0-0.8) 08/19/25 10:15 Baso # (Auto) 0.1 10^3/uL (0.0-0.1) 08/19/25 10:15 Nucleated RBC % (auto) 0 % 08/19/25 10:15 Nucleated RBCs # 0.0 /100WBC 08/19/25 10:15 Specimen Type Arterial 08/19/25 09:50 Sample Site Radial, right 08/19/25 09:50 ABG pH 7.29 (7.35-7.45) L 08/19/25 09:50 ABG pCO2 50.6 mmHg (35-45) H 08/19/25 09:50 ABG pO2 52.0 mmHg (80.0-100.0) L 08/19/25 09:50 ABG HCO3 24.4 mmol/L (22-26) 08/19/25 09:50 ABG O2 Saturation 82.3 08/19/25 09:50 ABG Base Excess -2.4 mmol/L (-2.0-2.0) L 08/19/25 09:50 Andry Test Pos 08/19/25 09:50 A-a O2 Gradient 4.9 mmHg (5-10) L 08/19/25 09:50 Hematocrit 31.3 % (37-47) L 08/19/25 09:50 Hgb O2 Saturation 80.6 % (95-100) L 08/19/25 09:50 Carboxyhemoglobin 1.1 %THgb (0.4-20.1) 08/19/25 09:50 Methemoglobin 0.9 % (0.4-1.5) 08/19/25 09:50 Total Hemoglobin 10.2 g/dL (12-16) L 08/19/25 09:50 Sodium 140.0 mmol/L (131-143) 08/19/25 09:50 Potassium 5.5 mmol/L (3.5-5.0) H 08/19/25 09:50 Glucose 338.0 mg/dL (70-115) H 08/19/25 09:50 Ionized Calcium 1.3 mmol/L (1.1-1.4) 08/19/25 09:50 O2 Delivery Device Simple mask 08/19/25 09:50 O2 Liters/Min 10.0 % 08/19/25 09:50 Information Management Manager ID [email or web address] 08/19/25 09:50 Sodium 136 mmol/L (136-145) 08/19/25 10:15 Potassium 5.4 mmol/L (3.5-5.1) H 08/19/25 10:15 Chloride 98 mmol/L (98-107) 08/19/25 10:15 Carbon Dioxide 21 mmol/L (22-29) L 08/19/25 10:15 Anion Gap 22.4 (5-19) H 08/19/25 10:15 BUN 44 mg/dL (6-20) H 08/19/25 10:15 Creatinine 4.3 mg/dL (0.5-0.9) H 08/19/25 10:15 GFR Calculation 10.7 mL/min (90-130) L 08/19/25 10:15 Glucose 338 mg/dL (65-115) H 08/19/25 10:15 Calculated Osmolality 306 mOsm/kg (285-295) H 08/19/25 10:15 Calcium 9.8 mg/dL (8.5-10.5) 08/19/25 10:15 Total Bilirubin 0.6 mg/dL (0.15-1.2) 08/19/25 10:15 AST 19 U/L (0-32) 08/19/25 10:15 ALT 12 U/L (0-33) 08/19/25 10:15 Alkaline Phosphatase 131 U/L (35-105) H 08/19/25 10:15 Troponin T Baseline 205 ng/L (0-10) H* 08/19/25 10:15 Total Protein 7.2 g/dL (6.6-8.7) 08/19/25 10:15 Albumin 4.2 g/dL (3.5-5.2) 08/19/25 10:15 Globulin 3.0 g/dL (1.3-4.6) 08/19/25 10:15 All radiology interpretation(s) finalized by discharge EKG Data EKG 1: I personally reviewed and interpreted this EKG as follows: Interpretation: EKG 08/19/2025 1001 sinus rhythm with left axis deviation no acute ST elevation no ST depression no T wave inversion. EKG compared to 07/16/2023. Computer generated interpretation: Chest X-Ray 08/19/25 09:46 Impression: 1. Bilateral pulmonary opacities probably pulmonary edema. 2. Cardiomegaly and bilateral pleural effusions. Discharge Plan Discharge Patient Disposition: Admitted As Inpatient Admit Provider: Sean Abdul Clinical Impression: Congestive heart failure, unspecified HF chronicity, unspecified heart failure type, Uncontrolled type 2 diabetes mellitus with hyperglycemia, ESRD (end stage renal disease) on dialysis, Anemia Condition: Stable Discharge Diet: As Directed Discharge Activity: Increase activity as tolerated and Oxygen as instructed Coding Level of Care Code ED Teacher Vocal for Chg Fwd
--- OUTSIDE RECORDS SUMMARY | 2025-08-19 09:54 | XMS_ITS ---
Author Organization [facility] Address [address] [place] [address] Care Team Providers Care Rail Grinder Name Role Phone Elke Patel RN Unavailable [phone] Graciela Gonzales MD Unavailable Juani Traylor MD Primary Care Pro vider Transplant Episode Kidney Candidate [facility] ([place], [place]) - [facility] Evaluation began on 08/07/2024 Marked as Active on 08/07/2024 Reason: Evaluation - Standard Kidney CoordinatorElke Patel RN Fax: N/A Email: N/A Scores Score Value Updated Exceptions/Reas ons CPRA Not available EPTS (Calc) 24 08/19/2025 Care Team Name Role Phone Fax Email Elke Patel RN Kidney Coordinator [phone] N/A N/A Mary Markham Primary Php Developer N/A N/A N/A Demetrio Electric Motor Mechanic N/A N/A N/A Graciela Gonzales MD Referring Physician [phone] N/A Events Pre-Transplant Referred: 07/25/2024 Evaluation began: 08/07/2024 Dialysis History Dialysis History Start End Type Comments Center 05/28/2024 Peritoneal Dialysis started 09/2024 [facility] Dialysis Center Information Center Phone Fax Address [facility] [phone] [address] [facility] [id number]
--- OUTSIDE RECORDS SUMMARY | 2025-08-19 09:54 | XMS_ITS | Encounter Summary ---
Author Organization [facility] Address [address] [place] [address] Phone Care Team Providers Care Hands Parter Name Role Phone Joellen Hill NP Primary Care Provider [phone] Encounter Details Date Type Department Care Team (Late st Contact Info) Description 07/09/2025 [facility] [address] [place] [address] Graciela Gonzales MD [address] [place] [address] Social History Tobacco Use Types [...] LIZY EVANS, 1970, 54y, F Dialysis Location: [facility] Attending Sheet Metal Welder: Graciela Gonzales Service Date: 07/09/2025 Service Provider: [...] on filedocumented in this encounter Care Teams Hands Parter Relationship Specialty Start Date End Date Joellen Hill NP [address] [place] [address] PCP - General Family Medicine 09/15/23 documented as of this encounter
--- OUTSIDE RECORDS SUMMARY | 2025-08-19 09:54 | XMS_ITS | Clinical Summary ---
Author Organization [facility] Address [address] [place] [address] Care Team Providers Care Bakery Technician Name Role Phone Elke Patel RN Unavailable [phone] Graciela Gonzales MD Unavailable Juani Traylor MD [...] mouth 09/25/20 24 Active FreeStyle Palak 3 [place] misc as directed 10/08/20 24 Active FreeStyle [...] Type Department Care Team Description 08/13/[address] [facility] Transplant Kidney [address] [facility] [address] [phone] [place] [address] Elke Patel, RN 08/13/[address] [facility] Transplant Kidney [address] [facility] [address] [phone] [place] [address] Elke Patel RN 08/12/[address] [facility] Transplant Kidney [address] [facility] [address] [phone] [place] [address] Elke Patel, RN 08/12/[address] [facility] Transplant Kidney [address] [facility] [address] [phone] [place] [address] Mariel Long from Last 3 Months Immunizations Immunization Administration Dates Next Due Hep B Vaccine 04/18/2024 Influenza, Quadrivalent, Rec ombinant, Egg Free, Preservative Free, Intramuscular 12/05/2019 Pneumococcal Conjugate Pcv20 05/18/2024 Surgical History Surgery Date Site/Laterality Comments US GUIDED THORACENTESIS 04/30/2025 N/A Social History Tobacco Use Types Packs/Day Years Used Date Smoking Tobacco: Never Smokeless Tobacco: Never [employer] Utilities Answer Date Recorded In the past 12 months has [employer], [employer], or water [employer] threatened to shut off services in your [...] How often do you attend chur or advent services? Patient declined 12/02/2024 Do you belong to any clubs o r organizations such as uatsdin groups, unions, fraternal or athletic groups, or [...] any time in the past 12 m [facility], were you homeless or living in a senior living (including now)? No 12/02/2024 Personal Safety Answer [...] Comments Blood Pressure 160/83 11/15/2024 12:40 PM PLATE DEVELOPER Pulse 89 11/15/2024 12:40 PM PLATE DEVELOPER Temperature 36.4 C (97.5 F) 11/15/2024 12:40 PM PLATE DEVELOPER Respiratory Rate - - Oxygen Saturation - - Inhaled Oxygen Concentration - - Weight 100.2 kg (221 lb) 11/15/2024 12:40 PM PLATE DEVELOPER Height 162.6 cm (5' 4 ) 11/15/2024 12:40 PM PLATE DEVELOPER Body Mass Index 37.93 11/15/2024 12:40 PM PLATE DEVELOPER Plan of Treatment Health Maintenance Due Date [...] HEPATITIS C ANTIBODY Routine 11/15/2024 2:39 PM PLATE DEVELOPER End stage renal disease (HCC) from Last 3 Months or Most Recently Relevant to Health Maintenance Results * Hepatitis C antibody Blood (11/15/2024 2:39 PM PLATE DEVELOPER) Hep C Ab Nonreactive Nonreactive Comment:Antibodies to HCV no t detected. Does NOT exclude the possibility of recent exposure to HCV. Current interpretive data was last revised on 22 Blood 11/15/2024 2:39 PM PLATE DEVELOPER 11/15/2024 3:15 PM PLATE DEVELOPER Katie LARA [facility] - 11/15/2024 4:03 PM PLATE DEVELOPER This lab is being obtained as part of a Kidney transplant evaluation, is time sensitive, and should only be drawn during the evaluation visit at [facility] Lab. us Juani Hoyos MD LAB MICROBIOLOGY - GENERAL ORDERABLES Final Result MARCO [facility] Department [place] [address] from Last 3 Months or Most Recently Relevant to Health Maintenance Insurance [place] [facility] DUAL COMPLETE [id number] TRANSPLANT [employer] [place] [facility] [place] [facility] TRANSPLANT OPT[employer] MEDICARE RISK TRANSPLANT [employer] [place] [facility] Care Teams Bakery Technician Relationship Specialty Start Date End Date Juani Traylor MD [address] [place] [address] PCP - General Transplant 11/15/24 Elke Patel, RN [address] [place] [address] News Wire Photo Operator 07/25/24 Graciela Gonzales MD [facility] [facility] [address] [place] [address] Nephrology 07/25/24
--- OUTSIDE RECORDS SUMMARY | 2025-08-19 09:54 | XMS_ITS | Clinical Summary ---
Author Organization [facility] Address [address] [place]: Epic Prelude ADT [place] [address] Care Team Providers Care Electrical Assembly Technician Name Role Phone Joellen Hill MACHINING AND ASSEMBLY SUPERVISOR Primary Care Provider Allergies Active Allergy Reactions [...] mg by mouth daily. Active vit B dhlscfk-F-ouosd ac-zinc (RenaPlex) 800 mcg- 12.5 mg Tablet [...] Encounters Date Type Department Care Team Description 08/14/2025 External Device Data [facility]CTION Provider, Abstract 07/30/2025 External Device Data [facility] Provider, Abstract 07/30/2025 External Device Data [facility] Provider, Abstract 07/23/2025 External Device Data [facility] Provider, Abstract 07/15/2025 5:05 AM CDT - 07/15/2025 11:59 PM CDT Hospital Encounter [facility] [place] [address] [facility] [address] [place] [address] Ambulance, [facility] Discharge Disposition: [facility] 06/12/2025 External Device Data [facility] ABSTRACTION Provider, [...] on file Legal Sex Female 10:52 AM PUBLISHER ASSISTANT Gender Identity Not on file Sexual Orientation [...] history exists Medical Devices Implanted Type Area Nutrition Teacher Device Identifier Shelf Expiration Date Model / Serial / Lot Cath Dialysis Glidepath 14.5fr 24cm Std [id number] - [id number] Implanted:Qty : 1 on 03/28/2024 by Demetrio Almaraz MD at [facility] Catheter Right: Chest BARD MARCK VASC 11/16/2025 [id number] / / [id number] Cath Pd Taqueria Curl 2cuf [address] - [id number] Implanted:Qty : 1 on 04/26/2024 by Jones Barnett DO at [facility] Catheter N/A: Abdomen [employer] - COVIDIEN [id number] 10/04/2028 [id number] / / [id number] Cath Pd Taqueria Curl 2cuf [id number] - [id number] Implanted:Qty : 1 on 08/30/2024 by Jones Barnett DO at [facility] Catheter N/A: Abdomen [employer] - COVIDIEN [id number] 02/18/2029 [id number] / / [id number] Procedures Procedure Name Priority Date/Time Associated Diagnosis Comments HEMOGLOBIN A1C Routine 04/30/2025 4:31 AM CDT MICROALBUMIN/CREATIN INE RATIO, RANDOM UR Routine 03/24/2024 11:27 PM CDT from Last 3 Months or Most Recently Relevant to Health Maintenance Results * HEMOGLOBIN A1C (04/30/2025 4:31 AM CDT) HEMOGLOBIN A1C 5.0 <=5.6 % 05/02/2025 11:31 AM CDT [facility] EST. AVG GLUCOSE, A1C 97 mg/dL 05/02/2025 11:31 AM CDT [facility] Blood Venipuncture / Unknown 04/30/2025 4:31 AM CDT 04/30/2025 4:57 AM CDT Narrative [facility] - 05/02/2025 11:31 AM CDT HGB A1C INTERPRETATION NORMAL: <5.7% PRE-DIABETES: 5.7 - 6.4% DIABETES: 6.5% OR GREATER us Deja Marie MD CHEMISTRY ORDERABLES Final Res ult [facility] CLIA # [id number] [address] [place] [address] * (ABNORMAL) MICROALBUMIN/CREATININE RATIO, RANDOM UR (03/24/2024 [...] Site ID: [place] Name: [facility] Address: [address] [address] Director: Alonzo Etienne MD Saad Flores MD URINE ORDERABLES Final Resul t [facility] from Last 3 Months or Most Recently Relevant to Health Maintenance Insurance MEDICAID [place] D[facility] COMPLETE [facility] [id number] RX OPTUM RX Member Subscriber Plan / Payer (Ef fective 2023-Present) Name:Lizy Evans Relation to Subscriber:Self Name:Lizy Evans Payer ID:Not on file Group ID:[id number] Type:RX Medicare Part D Address: [place] RX INFOCROSSING Medicaid Advance Directives For more information, please contact: [phone] * Full Code (Latest Code Status on File) Date Activated Date Inactivated Comments 04/29/2025 5:50 PM 05/04/2025 2:02 PM * Full Code Date Activated Date Inactivated Comments 08/30/2024 8:44 AM 08/30/2024 12:37 PM * Full Code Date Activated Date Inactivated Comments 04/26/2024 9:38 AM 04/26/2024 2:24 PM * Full Code Date Activated Date Inactivated Comments 03/24/2024 11:30 PM 03/30/2024 6:37 PM Care Teams Electrical Assembly Technician Relationship Specialty Start Date End Date Joellen Hill FNP [address] [place] [id number] PCP - General Nurse Practitioner Family 07/06/21
--- OUTSIDE RECORDS SUMMARY | 2025-08-19 09:54 | XMS_ITS | Encounter Summary ---
Author Organization [facility] Healthcare Address [address] [place] [address] Care Team Providers Care Registered Respiratory Therapist Name Role Phone Elke Patel RN Unavailable [phone] Graciela Gonzales MD Unavailable [phone] Juani Traylor MD Primary Care Pro vider Encounter Details Date Type Department Care Team (Late st Contact Info) Description 08/13/2025 Telephone [facility] and [facility] Transplant Kidney 4590 [facility] [phone] [place] [address] Elke Paetl RN 45[address] [facility] [address] [place] [address] Social History Tobacco Use Types Packs/Day Years Used Date Smoking Tobacco: Never Smokeless Tobacco: Never [facility] Utilities Answer Date Recorded In the past [...] often do you attend chur ch or alevism services? Patient declined 12/02/2024 Do you belong [...] any time in the past 12 m [facility], were you homeless or living in a [facility] (including now)? No 12/02/2024 Personal Safety Answer [...] on filedocumented in this encounter Care Teams Registered Respiratory Therapist Relationship Specialty Start Date End Date Juani Traylor MD [address] [facility] [address] [place] [address] PCP - General Transplant 11/15/24 Elke Patel, RN 4590 [facility] [address] [place], [place] [id number] Studio Model 07/25/24 Graciela Gonzales MD 1911 [facility] [address] [place] [address] Nephrology 07/25/24 documented as of this encounter
--- OUTSIDE RECORDS SUMMARY | 2025-08-19 09:54 | XMS_ITS | Encounter Summary ---
Author Organization [facility] Healthcare Address [address] [place] [address] Care Team Providers Care Dispute Specialist Name Role Phone Elke Patel RN Unavailable [phone] Graciela Gonzales MD Unavailable [phone] Juani Traylor MD Primary Care Pro vider Encounter Details Date Type Department Care Team (Late st Contact Info) Description 08/12/2025 Telephone [facility] and [facility] Transplant Kidney 45[address] [facility] [address] [phone] [place] [address] Elke Patel RN 45[address] [facility] [address] [place] [address] Social History Tobacco Use Types Packs/Day Years Used Date Smoking Tobacco: Never Smokeless Tobacco: Never [facility] Utilities Answer Date Recorded In the past [...] often do you attend chur ch or jew services? Patient declined 12/02/2024 Do you belong to any clubs o r organizations such as scientology groups, unions, fraternal or athletic groups, or [...] any time in the past 12 m [facility], were you homeless or living in a [place] [facility] [place] (including now)? No 12/02/2024 Personal Safety Answer [...] on filedocumented in this encounter Care Teams Dispute Specialist Relationship Specialty Start Date End Date Juani Traylor MD [address] [facility] [address] [place], [place] [phone] PCP - General Transplant 11/15/24 Elke Patel, RN 4590 [facility] [address] [place], [place] [id number] Government Instructor 07/25/24 Graciela Gonzales MD [address] [facility] [address] [place] [address] Nephrology 07/25/24 documented as of this encounter
--- OUTSIDE RECORDS SUMMARY | 2025-08-19 09:54 | XMS_ITS | Encounter Summary ---
Author Organization [facility] Healthcare Address [address] [place] [address] Care Team Providers Care Thin Film Technician Name Role Phone Elke Patel RN Unavailable [phone] Graciela Gonzales MD Unavailable [phone] Juani Traylor MD Primary Care Pro vider Encounter Details Date Type Department Care Team (Late st Contact Info) Description 08/12/2025 Telephone [facility] and [facility] Transplant Kidney 45[address] [facility] [address] [phone] [place] [address] Mariel Long Social History Tobacco Use Types Packs/Day Years Used Date Smoking Tobacco: Never Smokeless Tobacco: Never [facility] Utilities Answer Date Recorded In the past 12 months has [employer] electric, gas, oil, or water company threatened [...] often do you attend chur ch or shinto services? Patient declined 12/02/2024 Do you belong [...] any time in the past 12 m [facility], were you homeless or living in a nursing home (including now)? No 12/02/2024 Personal Safety Answer [...] on filedocumented in this encounter Care Teams Thin Film Technician Relationship Specialty Start Date End Date Juani Traylor MD [address] [facility] [address] [place] [address] PCP - General Transplant 11/15/24 Elke Patel, RN 4590 [facility] [address] [place] [address] Repairer Resistance Welding Machines 07/25/24 Graciela Gonzales MD [address] [facility] [address] [place] [address] Nephrology 07/25/24 documented as of this encounter
--- OUTSIDE RECORDS SUMMARY | 2025-08-19 09:55 | XMS_ITS | Clinical Summary ---
Author Organization [facility] Facility Address [address] [address] Care Team Providers Care Claims Associate Name Role Phone Joellen Hill NP Primary Care Provider [phone] Allergies Active Allergy Reactions Criticality Noted Date [...] Department Care Team Description 08/15/2025 Orders Only [facility], [facility] [address] [place] [phone] Graciela Gonzales MD 08/13/2025 Treatment [facility], [facility] [address] [place] [phone] Graciela Gonzales MD End stage renal disease; Dependence on renal dialysis 08/08/2025 Orders Only [facility], [facility] [address] [place] [phone] Graciela Gonzales MD 08/06/2025 Treatment [facility], [facility] [address] [place] [phone] Araceli Swanson NP End stage renal disease; Dependence on renal dialysis 08/01/2025 Orders Only [facility], [facility] [address] [place] [address] Graciela Gonzales MD 07/27/2025 Orders Only [facility], [facility] [address] [place] [address] Graciela Gonzales MD 07/25/2025 Orders [facility], [facility] [address] [place] [address] Graciela Gonzales MD 07/23/[address] [place] [address], [facility] [address] [place] [phone] Nancie Stanley, STEPHANIE End stage renal disease; Dependence on renal dialysis 07/09/2025 TCM in Dialysis Clinic [address] [place] [address], [facility] [address] [place] [address] Graciela Gonzales MD 07/03/2025 [facility]phone [facility], [facility] [address] [place] [address] Graciela Gonzales MD 06/24/[address] [place] [address], [facility] [address] [place] [address] Graciela Gonzales MD End stage renal disease; Dependence on renal dialysis 06/19/2025 Orders Only [facility], [facility] [address] [place] [address] Graciela Gonzales MD 06/05/[address] [place] [address], [facility] [address] [place] [address] Graciela Gonzales MD End stage renal disease; Dependence on renal dialysis 05/22/2025 Orders Only [facility], [facility] [address] [place] [address] Graciela Gonzales MD from Last [...] Foot Exam 09/15/2023 Influenza Vaccine (#1) 2025 08/01/2024, 2019 Diabetes: Hemoglobin A1C 10/25/2025 025, 04/30/2025, 04/29/2025, [...] 08/16/2025 Unless otherwise specified, test(s) performed at: [facility], [address] [place], [place] [phone] CORPORATE RECEPTIONIST: Christiano Magallon M.D. For any questions, please call customer service at FREQUENCY:OTHER Resulting Agency Comment Specimen source: Blood us Graciela Gonzales MD LAB BLOOD ORDERABLES Final Re sult Performing Organization Address [facility] de Phone Number [facility] See order comments or contact performing lab Unknown, [place] * (ABNORMAL) HD KINETICS (07/25/2025) [facility] % Urea Reduction 81(H) 65 - 80 % [facility] 07/25/2025 07/27/2025 10: 53 AM CDT Narrative Resulting Agency Comment Specimen source: Plasma us Graciela Gonzales MD LAB BLOOD ORDERABLES Final Re sult Performing Organization Address [facility] de Phone Number [facility] See order comments or contact performing lab Unknown, [place] * (ABNORMAL) SPECIAL CHEMISTRY (07/25/2025) Only the most recent of2 resultswithin the time period is included. [facility] Hemoglobin A1C 6.1(H) 4.8 - 5.9 % [facility] 07/25/2025 07/26/2025 10: 50 AM CDT Narrative [facility] - 07/26/2025 Unless otherwise specified, test(s) performed at: [facility], [address] [place] [address] CORPORATE RECEPTIONIST: Christiano Magallon M.D. For any questions, please call customer service at FREQUENCY:MONTHLY Resulting Agency Comment Specimen source: Blood Result Jojo Gonzales MD LAB BLOOD BANK TEST ORDERABLE S Final Result Performing Organization Address [facility] de Phone Number [facility] See order comments or contact performing lab Unknown, [place] * POST CHEMISTRY (07/25/2025) [facility] BUN Post Dialysis 9 6 - 19 mg/dL [facility] 07/25/2025 07/27/2025 10: 53 AM CDT Narrative [facility] - 07/27/2025 Unless otherwise specified, test(s) performed at: [facility], [address] [place] [address] CORPORATE RECEPTIONIST: Christiano Magallon M.D. For any questions, please call customer service at FREQUENCY:MONTHLY Resulting Agency Comment Specimen source: Plasma Graciela Gonzales MD LAB BLOOD ORDERABLES Final Re sult [facility] See order comments or contact performing lab Unknown, [place] * IMMUNO CHEMISTRY (07/25/2025) Only the most recent of3 resultswithin the time period is included. [facility] Hepatitis C Antibody Nonreactive Nonreactive [facility] Comment: No HCV antibody detected. The above test result was obtained using Siemens Centaur XP chemiluminescent method. Results obtained with different assay methods or kits cannot be used interchangeably. S/CO Ratio 0.04 0.00 - 0.79 [facility] Comment: s/co ratio Interpretation Supplemental testing <0.80 Nonreactive No further testing required. 0.80-0.99 Equivocal HCV RNA Quantitative Real-Time PCR is recommended. 1.00->11.00 Reactive HCV RNA Quantitative Real-Time PCR is recommended to distinguish active from resolved cases. 07/25/2025 07/26/2025 10: 57 AM CDT Narrative Resulting Agency Comment Specimen source: Serum Graciela Gonzales MD LAB BLOOD ORDERABLES Final Re sult [facility] See order comments or contact performing lab Unknown, [place] * (ABNORMAL) TRACE ELEMENTS (07/25/2025) Pathologist [facility] Aluminum 37(H) 0 - 10 mcg/L [facility] Comment: This test was developed and its performance characteristics determined by [facility]. It has not been cleared or approved [...] 07/26/2025 Unless otherwise specified, test(s) performed at: [facility], [address] [place] [address] CORPORATE RECEPTIONIST: Christiano Magallon M.D. For any questions, please call customer service at FREQUENCY:MONTHLY Resulting Agency Comment Specimen source: Serum Graciela Gonzales MD LAB BLOOD ORDERABLES Final Re sult [employer] [facility] See order comments or contact performing lab Unknown, [place] * (ABNORMAL) [facility] (07/25/2025) Only the most recent of4 [...] 07/26/2025 Unless otherwise specified, test(s) performed at: [facility], [address] [place] [address] CORPORATE RECEPTIONIST: Chrsitiano Magallon M.D. For any questions, please call customer service at FREQUENCY:MONTHLY Resulting Agency Comment Specimen source: Serum Graciela Gonzales MD LAB BLOOD ORDERABLES Final Re sult [facility] See order comments or contact performing lab Unknown, [place] * [facility] Lab Results (07/25/2025) Pathologist [facility] eKt/V Gotch 1.72 [facility] e Center nPCR_HD 1.07 [facility] spKt/V Got 1.98 [facility] PCR 58.84 [facility] eKt/V (Tattersall) 1.71 [facility] eNPCR 0.95 [facility] spKt/V (Daugirdas II) 1.95 [facility] WSTDKT/V 2.0 [facility] eKdrt/V 1.79 [facility] 07/25/2025 07/25/2025 [facility] Ordering Provider LAB BLOOD ORDERABLES Final Result [facility] Contact Performing lab Unknown, [place] * (ABNORMAL) URINE CLEARANCE (06/19/2025) Pathologist [facility] Urea Nitrogen, Urine Timed 252 mg/dL [facility] [...] MD LAB URINE ORDERABLES Final Re sult [facility] See order comments or contact performing lab [...] values have been corrected for glucose interference. [facility] glucose correction factor for creatinine is [...] Edited Result - Final Performing Organization Address [facility] de Phone Number [facility] See order comments or contact performing lab Unknown, [place] * PD ADEQUACY (06/19/2025) Only the most recent of2 resultswithin the time period is included. Pathologist [facility] Kt/V, Residual 0.19 [facility] Creat Clear, Urine Nor Wkly 10 L/wk [facility] 06/19/2025 06/20/2025 2:3 8 PM CDT Narrative [facility] - 06/21/2025 Unless otherwise specified, test(s) performed at: [facility], [address] [place] [address] CORPORATE RECEPTIONIST: Christiano Magallon M.D. For any questions, please call customer service at FREQUENCY:MONTHLY Resulting Agency Comment Specimen source: Urine us Graciela Gonzales MD LAB BODY FLUIDS AND STOOLS OR DERABLES Final Result Performing Organization Address [facility] de Phone Number [facility] See order comments or contact performing lab Unknown, [place] * PATIENT INFORMATION (06/19/2025) Only the most recent of3 resultswithin the time period is included. [facility] Patient BSA 1.67 sq. M. [facility] Comment: Normalized values are calculated using the patient's actual BSA and normalized to the average BSA of 1.73m2. 06/19/2025 06/20/2025 3:3 4 PM CDT Narrative [facility] - 06/20/2025 Unless otherwise specified, test(s) performed at: [facility], [address] [place], [place] [phone] CORPORATE RECEPTIONIST: Christiano Magallon M.D. For any questions, please call customer service at FREQUENCY:MONTHLY Resulting Agency Comment Specimen source: PD Fluid us Graciela Gonzales MD LAB BLOOD ORDERABLES Final Re sult [facility] See order comments or contact performing lab Unknown, [place] from Last 3 Months Insurance Dual Complete Choice [place] ([id number]) Care Teams Claims Associate Relationship Specialty Start Date End Date Joellen Hill NP [address] [place] [address] PCP - General Family Medicine 09/15/23
--- OUTSIDE RECORDS SUMMARY | 2025-08-19 09:55 | XMS_ITS | Encounter Summary ---
Author Organization [facility], [facility] Address [address] [place] [address] Phone Care Team Providers Care Director Of Publications Name Role Phone Joellen Hill NP Primary Care Provider [phone] Encounter Details Date Type Department Care Team (Late st Contact Info) Description 08/15/2025 Orders Only [facility] [address] [place] [address] Graciela Gonzales MD [address] [place] [address] Social History Tobacco Use Types [...] 08/16/2025 Unless otherwise specified, test(s) performed at: [facility], [address] [place], [place] [id number] UNION ORGANIZER: Christiano Magallon M.D. For any questions, please call customer service at FREQUENCY:OTHER Resulting Agency Comment Specimen source: Blood us Graciela Gonzales MD LAB BLOOD ORDERABLES Final Re sult [employer] See order comments or contact performing lab Unknown, [place] documented in this encounter Visit Diagnoses Not on filedocumented in this encounter Care Teams Director Of Publications Relationship Specialty Start Date End Date Joellen Hill NP [address] [place] [address] PCP - General Family Medicine 09/15/23 documented as of this encounter
--- OUTSIDE RECORDS SUMMARY | 2025-08-19 09:55 | XMS_ITS | Encounter Summary ---
Author Organization [facility] Address [address] [place] [address] Care Team Providers Care Dermatology Teacher Name Role Phone Joellen Hill Primary Care Provider [phone] Encounter Details Date Type Department Care Team (Late st Contact Info) Description 08/14/2025 External Device Data [facility] ABSTRACTION Provider, Abstract NO ADDRESS ON FILE Social History Tobacco Use Types Packs/Day Years [...] on file Legal Sex Female 10:52 AM ONCOLOGY PHARMACIST Gender Identity Not on file Sexual Orientation Not on file documented as of this encounter Plan of Treatment Not on file documented as of this encounter Visit Diagnoses Not on filedocumented in this encounter Care Teams Dermatology Teacher Relationship Specialty Start Date End Date Joellen Hill FNP [address] [place] [address] PCP - General Nurse Practitioner Family 07/06/21 documented as of this encounter
--- OUTSIDE RECORDS SUMMARY | 2025-08-19 09:55 | XMS_ITS | Encounter Summary ---
Author Organization [facility], [facility] Address [address] [place] [address] Phone Care Team Providers Care Rn Sane Name Role Phone Joellen Hill NP Primary Care Provider [phone] Encounter Details Date Type Department Care Team (Late st Contact Info) Description 08/13/2025 Treatment [facility], [facility] [address] [place] [address] Graciela Gonzales MD [address] [place] [address] End stage renal disease; Dependence [...] LIZY EVANS, 1970, 54y, F Dialysis Location: [facility] Attending Captain Fire Prevention Bureau: Graciela Gonzales Service Date: 08/13/2025 Service Provider: [...] Discharge Date 07/20/25 TRANSPLANT Comments: Referred to [facility] in October. She has seen [facility] and is still in process of workup. [...] dialysis documented in this encounter Care Teams Rn Sane Relationship Specialty Start Date End Date Joellen Hill NP [address] [place] [address] PCP - General Family Medicine 09/15/23 documented as of this encounter
--- OUTSIDE RECORDS SUMMARY | 2025-08-19 09:55 | XMS_ITS | Encounter Summary ---
Author Organization [facility] Healthcare Address [address] [place] [address] Care Team Providers Care Bell Attendant Name Role Phone Elke Patel RN Unavailable [phone] Graciela Gonzales MD Unavailable [phone] Juani Traylor MD Primary Care Pro vider Encounter Details Date Type Department Care Team (Late st Contact Info) Description 08/13/2025 Telephone [facility] Transplant Kidney 4590 [facility] [phone] [place] [address] Elke Patel RN 4590 [facility] [address] [place] [address] Social History Tobacco Use Types Packs/Day Years Used Date Smoking Tobacco: Never Smokeless Tobacco: Never [facility] Utilities Answer Date Recorded In the past [...] often do you attend chur ch or scientology services? Patient declined 12/02/2024 Do you belong to any clubs o r organizations such as adventist groups, unions, fraternal or athletic groups, or [...] any time in the past 12 m [facility], were you homeless or living in a correction (including now)? No 12/02/2024 Personal Safety Answer [...] on filedocumented in this encounter Care Teams Bell Attendant Relationship Specialty Start Date End Date Juani Traylor MD [address] [facility] [address] [place] [address] PCP - General Transplant 11/15/24 Elke Patel, RN 4590 [facility] [address] [place], [place] [id number] Drier Operator Head 07/25/24 Graciela Gonzales MD [address] [facility] [address] [place] [address] Nephrology 07/25/24 documented as of this encounter
--- OUTSIDE RECORDS SUMMARY | 2025-08-19 09:55 | XMS_ITS | Encounter Summary ---
Author Organization [facility], [facility] Address [address] [place] [address] Phone Care Team Providers Care Kiln Transfer Operator Name Role Phone Joellen Hill NP Primary Care Provider [phone] Encounter Details Date Type Department Care Team (Late st Contact Info) Description 09/15/2023 Orders Only [facility] [employer] [employer] [address] [place] [address] Type 2 diabetes mellitus with [...] (HCC) documented in this encounter Care Teams Kiln Transfer Operator Relationship Specialty Start Date End Date Joellen Hill NP [address] [place] [address] PCP - General Family Medicine 09/15/23 documented as of this encounter
[2025-08-19 10:01] LABS: Blood Gas LPM 10.0 %; Blood Gas Sample Type Arterial
--- NOTE | 2025-08-19 10:01 | ECG_ITS ---
[facility] Test Date: 2025-08-19 Pat Name: Lizy Evans Department: Room: Gender: Female Magnetic Tape Winder: : 1970 Requested By: Peng Jamil Order Number: [id number] Herson MD: Chandrakant Hinojosa M.D. Measurements Intervals [place] Rate: 94 P: 63 VT: 164 QRS: -56 QRSD: 97 T: 74 QT: 365 QTc: 457 Interpretive Statements SINUS RHYTHM LEFT AXIS DEVIATION [QRS AXIS < -30] ANTEROSEPTAL MYOCARDIAL INFARCTION , OF INDETERMINATE AGE [40+ ms Q WAVE IN V1-V4] Compared to ECG 07/16/2025 11:47:20 Left-axis deviation now present Myocardial infarct finding now present Left anterior fascicular block no longer present Electronically Signed On 08-20-2025 22:10:21 BRICK GRADER by Chandrakant Hinojosa M.D. [email or web address]
[2025-08-19] MEDS: labetalol 5 mg/mL SDV 20mL 10 MG IVP (10:07)
[2025-08-19] MEDS: hyDRALAzine 20 mg/mL INJ 1 mL IVP (10:07)
--- NOTE | 2025-08-19 10:12 | PC.NURSE ---
UNABLE TO OBTAIN TEMPERATURE ORALLY OR AXILLARY. PT REFUSING RECTAL TEMPERATURE AT THIS TIME.
[2025-08-19 10:15] LABS: ABG PCO2 50.6 mmHg (35-45); ABG PH Result 7.29 (7.35-7.45); Alveolar-Arterial Oxygen Gradi 4.9 mmHg (5-10); Arterial Blood Gas Hematocrit 31.3 % (37-47); Blood Gas Allen Test Pos; Blood Gas Operator Identificat gc; Blood Gas Sample Site Radial, right; Carboxyhemoglobin 1.1 %THgb (0.4-20.1); Glucose Level-ABG 338.0 mg/dL (70-115); HCO3 ABG 24.4 mmol/L (22-26); Ionized Calcium Level - ABG 1.3 mmol/L (1.1-1.4); Methemoglobin 0.9 % (0.4-1.5); Oxygen Saturation ABG 82.3; PO2 ABG 52.0 mmHg (80.0-100.0); Potassium Level - ABG 5.5 mmol/L (3.5-5.0); Sodium Level - ABG 140.0 mmol/L (131-143)
[2025-08-19 10:24] LABS: Hematocrit 29.3 % (36-47); Hemoglobin 9.00 g/dL (11.27-16.99); Mean Corpuscular HGB Conc 30.7 g/dL (30-55); Mean Corpuscular Hemoglobin 27.7 pg (27-33); Mean Corpuscular Volume 90.2 fl (85-98); Nucleated Red Blood Cells % 0 %; Platelet Count 354 10^3/cmm (157-399); Red Blood Count 3.25 10^6/uL (3.85-5.65); White Blood Count 17.40 10^3/uL (3.29-11.43)
[2025-08-19] MEDS: nicardipine 20 MG/200 ML PREMIX 50 MG IV (10:24)
--- NOTE | 2025-08-19 10:32 | PC.NURSE ---
Patient refusing bipap. Pt states that she has to be knocked out first. Dr Jovel aware of situation and gave verbal order for 1mg ativan. Pt verbalized understanding about her need for bipap.
[2025-08-19 10:42] LABS: Alanine Aminotransferase 12 U/L (0-33); Albumin Level 4.2 g/dL (3.5-5.2); Alkaline Phosphatase 131 U/L (35-105); Anion Gap 22.4 (5-19); Aspartate Amino Transferase 19 U/L (0-32); Blood Urea Nitrogen 44 mg/dL (6-20); Calcium 9.8 mg/dL (8.5-10.5); Carbon Dioxide 21 mmol/L (22-29); Chloride 98 mmol/L (98-107); Creatinine Clr Calc Pharmacy 15.3745; Globulin 3.0 g/dL (1.3-4.6); Glucose 338 mg/dL (65-115); Osmolality Calculated 306 mOsm/kg (285-295); Potassium 5.4 mmol/L (3.5-5.1); Sodium 136 mmol/L (136-145); Total Protein 7.2 g/dL (6.6-8.7)
[2025-08-19 10:49] LABS: Troponin(5th) Baseline 205 ng/L (0-10)
[2025-08-19] MEDS: LORazepam 2 mg/mL INJ 1 mL 1 MG IVP (10:55)
[2025-08-19] MEDS: FUROsemide 10 mg/mL SDV 10mL 80 MG IVP (10:56)
--- NOTE | 2025-08-19 11:36 | PM.CONSULT ---
Providers/Reason For Consult Consulting Physician/Specialty*: kommana/nephrology Reason for Consult*: esrd Attending Physician: Sean Abdul Primary Care Provider: SEGUN Mulligan History of Present Illness History of Present Illness Lizy Evans is a 54 year old female Patient is a 54-year-old female with past medical history of end-stage renal disease on dialysis, diabetes type 2, anemia, arthritis anxiety depression. Patient was sent to the emergency department after patient developed acute onset hypertension and shortness of breath during blood transfusion as an outpatient. Last hemodialysis was on Tuesday. Lab data reviewed. Patient is admitted to ICU. Review of Systems Narrative: negativ e Medications/Allergies Home Medications ?Medication ?Instructions ?Recorded ?Confirmed ?Last Taken ?Type cetirizine 10 mg tablet 10 mg PO DAILY PRN Allergy Symptoms 05/23/24 08/19/25 08/18/25 History calcitriol 0.25 mcg capsule 0.25 mcg PO DAILY 10/30/24 08/19/25 08/18/25 History sevelamer carbonate 800 mg tablet 800 mg PO TID 12/07/24 08/19/25 08/18/25 History torsemide 100 mg tablet 100 mg PO DAILY 12/07/24 08/19/25 08/18/25 History sodium bicarbonate 650 mg tablet 650 mg PO BID 04/16/25 08/19/25 08/18/25 History diabetic shoes with 3 inserts #1 ea 04/18/25 08/19/25 08/18/25 Rx atorvastatin 40 mg tablet 40 mg PO DAILY 06/26/25 08/19/25 08/18/25 History gentamicin 0.1 % topical cream See Rx Instructions .Route .COMPLEX 06/28/25 08/19/25 08/18/25 History insulin aspart U-100 100 unit/mL See Rx Instructions .Route 07/12/25 08/19/25 08/18/25 Rx (3 mL) subcutaneous pen (Novolog .COMPLEX #15 mL FlexPen U-100 Insulin aspart) pantoprazole 40 mg tablet,delayed 40 mg PO QAM #60 tabs 07/20/25 08/19/25 08/18/25 Rx release (Protonix) sucralfate 1 gram tablet (Carafate) 1 g PO TID 12 weeks #252 tabs 07/20/25 08/19/2508/18/25 Rx blood-glucose sensor (FreeStyle #2 ea 07/31/25 08/19/25 08/18/25 Rx Palak 3 Plus Sensor device) duloxetine 30 mg capsule,delayed 30 mg PO .q am #30 caps 08/12/25 08/19/25 08/18/25 Rx release vit B,C-folic ac 800 mcg-zinc 12.5 See Rx Instructions .Route .COMPLEX 08/19/25 08/19/25 Unknown History mg-selen-D3 2,000 unit-vit E tablet (RenaPlex-D) Allergies Allergy/AdvReac Type Severity Reaction Status Date / Time venom-honey bee Allergy Severe ALGY-Redness Verified 08/16/25 17:30 of Skin marijuana (cannabis) Allergy Intermediate ADR-Nausea Verified 08/16/25 17:30 codeine AdvReac Severe ADR-Vomitin Verified 08/16/25 17:30 g morphine AdvReac Severe ADR-Vomitin Verified 08/16/25 17:30 g propoxyphene (From AdvReac Severe ADR-Vomitin Verified 08/16/25 17:30 Darvocet-N) g latex AdvReac Intermediate ALGY-Rash Verified 08/16/25 17:30 Current Medications Generic Name Dose Route Start Last Admin Trade Name Freq PRN Reason Stop Dose Admin Nicardipine/Sodium Chloride 20 mg in 200 mls @ 0 mls/hr 08/19/25 10:00 08/19/25 10:24 Cardene IV 5 mg/hr .Q0M ALMITA 50 mls/hr Protocol Administration Per Protocol PFSH Acute PFSH: Medical History (Updated 08/19/25 @ 14:45 by Sean Abdul MD) Mediastinal lymphadenopathy Anemia Sepsis Pleural effusion PAD (peripheral artery disease) Essential hypertension Peritoneal dialysis catheter in place Uncontrolled type 2 diabetes mellitus Anemia of chronic disease ESRD (end stage renal disease) Diabetic neuropathy, type II diabetes mellitus Diabetic retinopathy Bereavement Major depressive disorder, recurrent, in partial remission Psychiatric care FH: total knee replacement left HLA B27 (HLA B27 positive) High risk medication use Inflammatory arthritis Seronegative spondyloarthropathy Chronic insomnia See subjective note below. Chronic pain See subjective note below. Chronic post-traumatic stress disorder (PTSD) Generalized anxiety disorder Major depressive disorder, recurrent, moderate Surgical History History of cataract extraction History of hysterectomy for benign disease History of tonsillectomy History of appendectomy History of left knee replacement Family History Mother Hypertension Diabetes Psychiatric illness Thyroid disease Father , in his 50's Family history of premature coronary artery disease Hyperlipidemia Myocardial infarction Brother Hypertension Sister No problems noted. Denies family history of Rheumatoid arthritis Lupus Social History Smoking and tobacco/nicotine status: never used tobacco/nicotine Second hand smoke exposure: No Alcohol intake: never Substance/Drug Use: never Adopted: No Caregiver/support person: No Lives independently: No Household members: family service: No Current occupational status: unemployed and disabled Sexually active: Yes Do you think of yourself as: Straight/Heterosexual Current gender identity: Female Vitals/I&O/Wt Last Vital Signs Temp 96.5 F L 08/19/25 11:04 Pulse 77 08/19/25 11:06 Resp 37 H 08/19/25 10:45 BP 162/64 08/19/25 10:45 Pulse Ox 97 08/19/25 11:06 O2 Del Method Non-Rebreather 08/19/25 10:29 O2 Flow Rate 10 08/19/25 10:29 FiO2 45 08/19/25 11:06 Weight last 48 hrs Weight 80.739 kg Physical Exam Narrative: awake , alert No distress No JVD S1S2 RRR Lungs with decreased BS pete Abd soft , non tender Ext no edema Data 08/20/25 05:14 08/20/25 05:14 A&P Assessment and plan 1. End stage renal disease on dialysis: Plan: 1. End-stage renal disease: On TTS schedule as outpatient, last HD on Tuesday, now presented with flash pulmonary edema, likely TACO. - Plan for emergent dialysis today and HD again tomorrow 2. Malignant hypertension: Resumed home meds and reevaluate after HD, on nicardipine drip currently ARU on today still 3. CHF with pulm edema , HD as above 4.Anemia , s/p transfusion pt evaluated using audiovisual cart. Time spent 40 min PDMP PDMP Reviewed: Not Reviewed Consult Attestations Medical Necessity Statement: per shona Coding Level of Care Code Acute Code for Chg Fwd Diagnoses End stage renal disease on dialysis N18.6; Z99.2
[2025-08-19 12:54] LABS: Glucose Urine UA 2+ (Normal); Nitrate Urine Negative (Negative); Specific Gravity, Urine 1.011 (1.005-1.030)
[2025-08-19 13:00] LABS: Add Urine Microscopic? YES
[2025-08-19 13:02] LABS: Troponin 5 2HR 203.9 ng/L (0-10); Troponin 5 2HR Delta -1.1 ABS# (0-10)
--- NOTE | 2025-08-19 13:13 | PM.HP ---
Providers/Chief Complaint Admitting Physician: Sean Abdul Primary Care Provider: SEGUN Mulligan Chief Complaint: low 02 History of Present Illness Lizy Evans is a 54 year old patient with end-stage renal disease (ESRD) on hemodialysis, diabetes mellitus type 2, anemia, inflammatory arthritis, seronegative spondyloarthropathy, generalized anxiety disorder (FRANCK), and major depressive disorder (MDD), referred for RBC transfusion after an emergency department (ED) visit three days ago. Hemoglobin (Hgb) was reported less than 7 g/dL at the dialysis clinic; in the ED Hgb was 7 g/dL. During transfusion, developed hypertension and shortness of breath requiring supplemental oxygen; transfusion was stopped and the blood was returned to the blood bank for verification. Usual hemodialysis schedule is Tuesday//Tuesday; the most recent session (reported as Tuesday) was stopped early due to tubing clotting (per pt). Denies cough with phlegm, chest pain/pressure, fever, nausea, vomiting, diarrhea, abdominal pain, leg swelling, melena, or hematochezia. Does not use home oxygen. Denies sleep apnea and does not use CPAP. Reports home blood pressures run high, with values reportedly up to the 250s, and does not take extra medication for spikes. Monitors fluid intake at home (details not quantified). Ambulates independently and lives with daughter. Prior hospitalization in early July for hypoxic respiratory failure with pleural effusion; history notable for inadequate peritoneal dialysis at home and possible peritoneal dialysis (PD) peritonitis treated with broad-spectrum antibiotics with PD catheter removal. At that time, antihypertensives were adjusted; anemia was noted; stool hemoccult was positive and aspirin was discontinued. Prior echocardiogram (07/16) showed left ventricular ejection fraction ~55?60%, moderate left ventricular hypertrophy, left atrial dilation, and mild mitral regurgitation. Prior right-sided thoracic procedures in Jun?Jul included thoracoscopy with pleural biopsy, right pleurodesis with PleurX catheter placement (later removed due to low output), and thoracenteses; cytology and biopsy were negative for malignancy. In the current ED/inpatient course, labs included: CBC with WBC 17.4 K/?L, Hgb varied 7.5?9 g/dL, platelets 354 K/?L; ABG pH 7.29, pCO2 50.6 mmHg, pO2 52 mmHg, bicarbonate 24 mEq/L; chemistry: sodium 136 mEq/L, potassium 5.4 mEq/L, chloride 98 mEq/L, bicarbonate 21 mEq/L, anion gap 22.4, BUN 44 mg/dL, creatinine 4.3 mg/dL, glucose 338 mg/dL; liver tests largely normal except alkaline phosphatase mildly elevated at 131 IU/L; troponin baseline 205 ng/L with 2-hour 204 ng/L; urinalysis with 2+ glucose, 3+ protein, nitrite trace; chest X-ray with bilateral pulmonary opacities consistent with pulmonary edema, cardiomegaly, and bilateral pleural effusions; EKG with sinus rhythm and possible Q-waves in V1?V2 (pending official read). Received hydralazine 20 mg IV push, labetalol 10 mg, lorazepam (Ativan) 1 mg, furosemide (Lasix) 80 mg IV push; started on a nicardipine drip for hypertensive emergency. Prior code status noted as Full Code. When asked, patient agreed to intubation/ventilation if needed and chest compressions if cardiac arrest occurred. Review of Systems Const: Denies: fever(s), chills, body aches or malaise ENMT: Denies: throat pain Card: Denies: chest pain, edema, pre-syncope or dyspnea on exertion Resp: Reports: dyspnea; Denies: productive cough, change in phlegm color or hemoptysis GI: Denies: abdominal pain, nausea, vomiting, diarrhea, constipation, hematochezia or melena : Denies: flank pain, urinary frequency or hematuria Musc: Denies: back pain, joint swelling or joint redness Skin/Breast: Denies: rash or new lesions Neuro: Denies: headache(s) or confusion Medications/Allergies Home Medications ?Medication ?Instructions ?Recorded ?Confirmed ?Last Taken ?Type cetirizine 10 mg tablet 10 mg PO DAILY PRN Allergy Symptoms 05/23/24 08/19/25 08/18/25 History calcitriol 0.25 mcg capsule 0.25 mcg PO DAILY 10/30/24 08/19/25 08/18/25 History vit B,C-folic ac 800 mcg-zinc 12.5 1 tab PO DAILY 10/30/24 08/19/25 08/18/25 History mg-selen-D3 2,000 unit-vit E tablet (RenaPlex-D) sevelamer carbonate 800 mg tablet 800 mg PO TID 12/07/24 08/19/25 08/18/25 History torsemide 100 mg tablet 100 mg PO DAILY 12/07/24 08/19/25 08/18/25 History duloxetine 30 mg capsule,delayed 30 mg PO .q am #30 caps 04/16/25 08/19/25 08/18/25 Rx release sodium bicarbonate 650 mg tablet 650 mg PO BID 04/16/25 08/19/25 08/18/25 History diabetic shoes with 3 inserts #1 ea 04/18/25 08/19/25 08/18/25 Rx atorvastatin 40 mg tablet 40 mg PO DAILY 06/26/25 08/19/25 08/18/25 History gentamicin 0.1 % topical cream See Rx Instructions .Route .COMPLEX 06/28/25 08/19/25 08/18/25 History insulin aspart U-100 100 unit/mL See Rx Instructions .Route 07/12/25 08/19/25 08/18/25 Rx (3 mL) subcutaneous pen (Novolog .COMPLEX #15 mL FlexPen U-100 Insulin aspart) pantoprazole 40 mg tablet,delayed 40 mg PO QAM #60 tabs 07/20/25 08/19/25 08/18/25 Rx release (Protonix) sucralfate 1 gram tablet (Carafate) 1 g PO TID 12 weeks #252 tabs 07/20/25 08/19/25 08/18/25 Rx blood-glucose sensor (FreeStyle #2 ea 07/31/25 08/19/25 08/18/25 Rx Palak 3 Plus Sensor device) duloxetine 30 mg capsule,delayed 30 mg PO .q am #30 caps 08/12/25 08/19/25 08/18/25 Rx release Allergies Allergy/AdvReac Type Severity Reaction Status Date / Time venom-honey bee Allergy Severe ALGY-Redness Verified 08/16/25 17:30 of Skin marijuana (cannabis) Allergy Intermediate ADR-Nausea Verified 08/16/25 17:30 codeine AdvReac Severe ADR-Vomitin Verified 08/16/25 17:30 g morphine AdvReac Severe ADR-Vomitin Verified 08/16/25 17:30 g propoxyphene (From AdvReac Severe ADR-Vomitin Verified 08/16/25 17:30 Darvocet-N) g latex AdvReac Intermediate ALGY-Rash Verified 08/16/25 17:30 PFSH Acute PFSH: Medical History Mediastinal lymphadenopathy Anemia Sepsis Pleural effusion PAD (peripheral artery disease) Essential hypertension Peritoneal dialysis catheter in place Uncontrolled type 2 diabetes mellitus Anemia of chronic disease ESRD (end stage renal disease) Diabetic neuropathy, type II diabetes mellitus Diabetic retinopathy Bereavement Major depressive disorder, recurrent, in partial remission Psychiatric care FH: total knee replacement left HLA B27 (HLA B27 positive) High risk medication use Inflammatory arthritis Seronegative spondyloarthropathy Chronic insomnia See subjective note below. Chronic pain See subjective note below. Chronic post-traumatic stress disorder (PTSD) Generalized anxiety disorder Major depressive disorder, recurrent, moderate Surgical History History of cataract extraction History of hysterectomy for benign disease History of tonsillectomy History of appendectomy History of left knee replacement Family History Mother Hypertension Diabetes Psychiatric illness Thyroid disease Father , in his 50's Family history of premature coronary artery disease Hyperlipidemia Myocardial infarction Brother Hypertension Sister No problems noted. Denies family history of Rheumatoid arthritis Lupus Social History Smoking and tobacco/nicotine status: never used tobacco/nicotine Second hand smoke exposure: No Alcohol intake: never Substance/Drug Use: never Adopted: No Caregiver/support person: No Lives independently: No Household members: family service: No Current occupational status: unemployed and disabled Sexually active: Yes Do you think of yourself as: Straight/Heterosexual Current gender identity: Female Vitals/I&O/Wt Last Vital Signs Temp 96.5 F L 08/19/25 11:04 Pulse 66 08/19/25 13:06 Resp 37 H 08/19/25 10:45 BP 154/64 08/19/25 11:40 Pulse Ox 99 08/19/25 13:06 O2 Del Method BiPAP 08/19/25 11:57 O2 Flow Rate 10 08/19/25 10:29 FiO2 35 08/19/25 13:06 08/18/25 08/19/25 08/19/25 22:59 06:59 14:59 Intake Total 76.667 / 76.667 Balance 76.667 / 76.667 Weight last 48 hrs Weight 81 kg Weight 80.739 kg Physical Exam Narrative: Somnolent. Wakes up to voice. BiPAP on. Const: COMMON NORMALS: patient oriented x3 GENERAL APPEARANCE: cooperative HENMT: COMMON NORMALS: oropharynx normal Neck/C-Spine: COMMON NORMALS: no JVD Chest: OTHER: Right chest tunneled HD catheter. Resp: COMMON NORMALS: normal respiratory effort AUSCULTATION: wheezes Cardio: COMMON NORMALS: no JVD, regular rhythm, S1 normal heart sound present, S2 normal heart sound present and No murmurs present (Cardio) RHYTHM: regular rhythm HEART SOUNDS: S1 normal heart sound present and S2 normal heart sound present GI: COMMON NORMALS: Normal to inspection, nondistended, normoactive bowel sounds present, Soft to palpation and non-tender PALPATION: Yes Soft to palpation Extremity: COMMON NORMALS: no joint enlargement and no pedal edema Neuro: COMMON NORMALS: patient oriented x3 and moves all extremities SENSORIUM/ORIENTATION: Yes alert Skin: COMMON NORMALS: no rashes or lesions noted GENERAL SKIN EXAM: no rashes or lesions noted Urinary Catheter Management: Segal: Cath Placed During This Visit: yes Urinary Catheter Date of Insertion: 08/19/25 Urinary Catheter Time of Insertion: 12:28 Quick SOFA Score: Respiratory Rate: 27 Blood Pressure: 152/81 [place] Coma Scale: 14 qSOFA Score: 2 If qSOFA score 2 or greater, continue: Blood Pressure Mean: 104 Bilirubin (mg/dl): 0.6 Platelets (x10?/ml): 354 Creatinine (mg/dl): 4.3 Evaluation: Current stage of sepsis: ruled out/differential diagnosis Noninfectious sepsis mimickers: acute CHF Sepsis stage criteria used: Sepsis-3 Focused Exam: Vital signs: Temp Pulse Resp BP Pulse Ox O2 Del Method O2 Flow Rate 08/19/25 14:00 72 08/19/25 13:30 71 27 H 152/81 97 BiPAP 08/19/25 13:15 65 19 H 131/69 99 08/19/25 13:06 66 99 08/19/25 13:00 65 20 H 131/69 99 08/19/25 12:45 154/64 08/19/25 12:30 68 28 H 142/71 96 08/19/25 12:15 154/64 08/19/25 12:00 65 28 H 128/67 95 08/19/25 11:57 BiPAP 08/19/25 11:56 65 08/19/25 11:45 154/64 08/19/25 11:40 88 154/64 96 08/19/25 11:30 154/64 08/19/25 11:15 154/64 08/19/25 11:06 77 97 08/19/25 11:04 96.5 F L 08/19/25 11:00 68 26 H 148/67 95 08/19/25 10:45 69 37 H 162/64 93 08/19/25 10:30 68 30 H 161/84 91 08/19/25 10:29 68 39 H 161/84 90 Non-Rebreather 10 08/19/25 10:25 69 26 H 174/108 90 08/19/25 09:48 92 35 H 216/154 93 Non-Rebreather 10 FiO2 08/19/25 14:00 08/19/25 13:30 08/19/25 13:15 08/19/25 13:06 35 08/19/25 13:00 08/19/25 12:45 08/19/25 12:30 08/19/25 12:15 08/19/25 12:00 08/19/25 11:57 08/19/25 11:56 08/19/25 11:45 08/19/25 11:40 08/19/25 11:30 08/19/25 11:15 08/19/25 11:06 45 08/19/25 11:04 08/19/25 11:00 08/19/25 10:45 08/19/25 10:30 08/19/25 10:29 08/19/25 10:25 08/19/25 09:48 Date exam was performed: 08/19/25 Time exam was performed: 14:56 Sepsis Screen No Definite Risk Today, 11:04 Respiratory Rate, (12 - 18) 27 breaths/min H Today, 13:30 Blood Pressure 152/81 mmHg Today, 13:30 Pilar Coma Scale Score 14 Today, 12:00 Quick SOFA Score 1 Today, 10:45 SOFA Score: [place] Coma Scale Score 14 Today, 12:00 Blood Pressure Mean 104 mmHg Today, 13:30 Total Bilirubin, (0.15-1.2) 0.6 mg/dL Today, 10:15 Platelet Count, (157-399) 354 10^3/cmm Today, 10:15 Creatinine, (0.5-0.9) 4.3 mg/dL H Today, 10:15 Data 08/19/25 10:15 08/19/25 10:15 A&P Assessment and plan 1. Acute hypoxemic respiratory failure: Acute hypoxic respiratory failure : Shortness of breath during transfusion requiring supplemental oxygen; ABG shows hypoxemia (pO2 52 mmHg) with mild acidemia; CXR shows pulmonary edema and pleural effusions. Acute pulmonary edema in the setting of TACO, possible TRALI, acute CHF with underlying ESRD, less likely pneumonia. Reviewed vitals, CBC, ABG, CMP, UA, EKG, chest x-ray, ED provider note, discussed with ED provider. Discussed with nursing staff. - Continue bilevel positive airway pressure (BiPAP) support -Repeat ABG - Wean to heated high-flow nasal cannula as able with treatment of below conditions. 2. Complication of blood transfusion: Suspected transfusion-associated circulatory overload (TACO) versus transfusion-related acute lung injury (TRALI) : Respiratory compromise and hypertension occurred during transfusion; transfusion stopped and blood returned for verification; TACO favored with concurrent volume overload; TRALI also considered. Discussed with blood bank, will request assessment for other transfusion reaction. Reassess blood counts. - Hemodialysis for treatment of suspected TACO - Send transfusion reaction studies as requested; discussed with blood bank - Reassess blood counts (collect hemoglobin, lactate dehydrogenase [LDH], and reticulocyte count) 3. Pulmonary edema: Pulmonary edema : CXR with bilateral pulmonary opacities consistent with pulmonary edema; volume overload suspected in the setting of transfusion and shortened dialysis. - Hemodialysis for volume removal - Noninvasive ventilatory support (BiPAP) with wean to heated high-flow nasal cannula as able Possible pneumonia : Less likely clinically per assessment, but treated empirically due to leukocytosis and respiratory findings while workup pending. - Empiric antibiotics - Collect blood cultures 4. Malignant hypertension: Hypertensive emergency : Developed severe hypertension during transfusion; imaging shows cardiomegaly/pulmonary edema. Treated with IV agents and started on continuous infusion for blood pressure control. Plan to resume home antihypertensives when possible. - Continue nicardipine drip for hypertensive emergency - Resume usual home antihypertensives when able - HD - Monitor on telemetry - Complete serial EKGs and troponins - Obtain limited transthoracic echocardiogram (TTE) 5. Diastolic heart failure: Acute diastolic heart failure with pulmonary edema secondary to hypertensive emergency and TAC oh as above. Received Lasix push. Discussed with HD RN. HD is being started. Monitor intake and output. Obtain limited TTE. 6. Anemia: History of anemia with recent Hgb values ranging 7?9 g/dL; prior positive stool hemoccult; aspirin previously discontinued. - Reassess blood counts - Collect hemoglobin level - Avoid anticoagulation due to prior history of anemia with positive hemoccult 7. Leukocytosis: WBC 17.4 K/?L; low suspicion for infection but empiric antibiotics initiated pending workup. Suspect more likely reactive. - Empirically cover with antibiotics for possible pneumonia. - Collect blood cultures Plan: Recurrent bilateral pleural effusions with cardiomegaly : CXR shows bilateral pleural effusions and cardiomegaly; prior pleural procedures with negative cytology and biopsy for malignancy. - Reassess pleural effusions - Obtain limited transthoracic echocardiogram (TTE) End-stage renal disease on hemodialysis : ESRD on intermittent hemodialysis (//Tue schedule); last session was stopped early due to clotting. - Continue hemodialysis - Use dialysis as part of management for volume overload/TACO Hyperkalemia: Mild hyperkalemia, potassium 5.4. To undergo dialysis. Repeat chemistries requested. Type 2 diabetes mellitus with hyperglycemia : Glucose 338 mg/dL on chemistry; diabetes mellitus type 2 known history. - Initiate insulin sliding scale - Monitor [id number] (POC) glucose - Monitor for hyperglycemia and hypoglycemia - Start consistent carbohydrate diet when oral intake resumes; may trial clear liquids as tolerated Elevated troponin : Baseline troponin 205 ng/L with 2-hour value 204 ng/L; EKG sinus rhythm with possible Q-waves (pending official read). No chest pain or pressure. As per was recently stopped due to acute anemia, positive Hemoccult. Reassess blood counts. Consider trial of addition of aspirin, however, is at risk of bleeding. - Complete serial EKGs and troponins - Obtain limited transthoracic echocardiogram (TTE) - Monitor on telemetry Hospital care bundle/precautions : General inpatient safety and precautionary measures noted. - Avoid sedating medications - Sequential compression devices (SCDs) for deep vein thrombosis (DVT) prophylaxis - Hold anticoagulation due to prior anemia with positive hemoccult Requesting to confirm home medication list. PDMP PDMP Reviewed: Not Reviewed Attestations Medical Necessity Statement*: Admission of 2 midnights anticipated for assessment management of acute respiratory failure with acute CHF, pulm edema, transfusion associated circulatory overload, transfusion related acute lung injury, possible pneumonia, in a lady with underlying ESRD, acute on chronic anemia, diabetes, additional comorbidities. Coding Level of Care Code Critical Care >/= 30 minutes Critical care time (in minutes): 40 The high probability of a clinically significant, sudden or life threatening deterioration, as referenced in this documentation, required my full and direct attention, intervention and personal management. The critical care time shown is in addition to time spent performing any reported separately billable procedures and includes the following: [x] Data and vital sign review and interpretation [x] Patient assessment, examination and intervention [x] Medication orders and management [x] Patient/Family updates as able [x] Care Coordination and Documentation. Diagnoses Acute hypoxemic respiratory failure J96.01 Complication of blood transfusion T80.92XA Pulmonary edema J81.1 Malignant hypertension I10 Diastolic heart failure I50.30 Anemia D64.9 Leukocytosis D72.829
[2025-08-19 13:35] LABS: UA Slide Review UA Slide Review Perf
[2025-08-19] MEDS: pantoprazole 40 mg SDV IVP (13:38)
[2025-08-19] MEDS: heparin, porcine 1,000 unit/mL INJ 10 mL 1000 UNIT IV (14:04)
--- NOTE | 2025-08-19 14:46 | USCV_ITS ---
Lizy Evans Age: 54 Gender: F : 1970 Exam Date: 08/19/2025 20:01 Ordering Phys: Sean Abdul MD Technologist: JULIÁN Exam Location: [facility] [place] Indication: history of CHF, CKD, Atrial fibrillation, HTN BP: 101 / 71 HR: 84 Rhythm: Sinus Technical Quality: Adequate MEASUREMENTS (Male / Female) Normal Values 2D ECHO LV Diastolic Diameter PLAX 3.4 cm 4.2 - 5.9 / 3.9 - 5.3 cm IVS Diastolic Thickness 1.8 cm 0.6 - 1.0 / 0.6 - 0.9 cm IVS Systolic Thickness 1.8 cm LVPW Diastolic Thickness 1.6 cm 0.6 - 1.0 / 0.6 - 0.9 cm LVPW Systolic Thickness 2.3 cm LVOT Diameter 2.1 cm LV Ejection Fraction 2D Teich 52.4 % LV Ejection Fraction MOD 4C 57.3 % LV Ejection Fraction MOD 2C 42.6 % LV Ejection Fraction 2C AL 42.9 % LA Diameter 4.8 cm Aorta at Sinotubular Diameter 2.7 cm IVC Diameter 2.1 cm M-MODE LA Ao Ratio MM 1.4 AV Cusp Separation MM 1.8 cm DOPPLER AV Peak Velocity 169.0 cm/s LVOT Peak Velocity 98.0 cm/s AV Area Cont Eq vti 2.3 cm squared AV Area Cont Eq pk 1.9 cm squared MV Peak Velocity 156.0 cm/s MV Area PHT 11.4 cm squared Mitral E to A Ratio 1.3 TR Peak Velocity 243.0 cm/s TR Peak Gradient 23.6 mmHg TV Peak E Velocity 56.0 cm/s PV Peak Velocity 86.0 cm/s FINDINGS Left Ventricle Mild diffuse hypokinesis of the left ventricle with ejection fraction of 45 to 50%. (visual). Right Ventricle Normal right ventricular size and systolic function. Right Atrium Normal right atrial size. Left Atrium Mildly increased left atrial size. IA Septum Normal appearance of the interatrial septum. Mitral Valve Trace to mild mitral valve regurgitation. Aortic Valve Thickened aortic valve. Tricuspid Valve Trace tricuspid valve regurgitation. Estimated pulmonary artery peak systolic pressure 27 mmHg Pulmonic Valve Pulmonic valve not well visualized. Pericardium No pericardial effusion. Aorta . Normal aortic annulus size. IVC Normal inferior vena cava. CONCLUSIONS Mild diffuse hypokinesis of the left ventricle with ejection fraction of 45 to 50%. (visual). Mildly increased left atrial size. Trace to mild mitral valve regurgitation. Thickened aortic valve. Trace tricuspid valve regurgitation. Estimated pulmonary artery peak systolic pressure 27 mmHg. There is no pericardial effusion. There are no intracardiac masses. Compared to study from 07/16/2025, the LV ejection fraction patient is slightly decreased Dr Chandarkant Hinojosa MD [facility] (Electronically Signed) Final Date: 20 August 2025 09:16 S
[2025-08-19 14:48] LABS: Hematocrit 24.0 % (36-47); Retic Production Index 0.96
[2025-08-19 15:11] LABS: Hematocrit 23.8 % (36-47); Hemoglobin 7.30 g/dL (11.27-16.99); Mean Corpuscular HGB Conc 30.7 g/dL (30-55); Mean Corpuscular Hemoglobin 27.2 pg (27-33); Mean Corpuscular Volume 88.8 fl (85-98); Nucleated Red Blood Cells % 0 %; Platelet Count 232 10^3/cmm (157-399); Red Blood Count 2.68 10^6/uL (3.85-5.65); White Blood Count 11.29 10^3/uL (3.29-11.43)
[2025-08-19] MEDS: piperacillin-tazobactam 3.375 GM in sodium chloride 0.9% (plus) 50 ML IV (15:42)
--- NOTE | 2025-08-19 15:46 | ECG_ITS ---
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 Measurements Intervals [place] Rate: 74 P: 48 IA: 167 QRS: -32 QRSD: 84 T: 120 QT: 393 QTc: 438 Interpretive Statements SINUS RHYTHM POSSIBLE LEFT ATRIAL ENLARGEMENT [-0.1mV P-WAVE IN V1/V2] LEFT AXIS DEVIATION [QRS AXIS < -30] NONSPECIFIC ST & T-WAVE ABNORMALITY Compared to ECG 08/19/2025 10:01:33 T-wave abnormality now present Myocardial infarct finding no longer present Electronically Signed On 08-20-2025 22:24:26 [facility] OFF[facility] by Chandrakant Hinojosa M.D. [email or web address]
[2025-08-19] MEDS: heparin, porcine 1,000 unit/mL INJ 10 mL 10000 UNIT INTRACATH (16:12)
[2025-08-19 17:33] LABS: Troponin 5 6HR 258.6 ng/L (0-10); Troponin 5 6HR Delta 53.6 ng/L (0-12)
[2025-08-19 19:29] LABS: Hemoglobin 7.60 g/dL (11.27-16.99)
[2025-08-20] VITALS (86 sets, daily range): BP systolic 134–193; BP diastolic 59–97; PULSE 66–95; RESP 0–26; TEMP 37–37.5; O2SAT 82–100
[2025-08-20] MEDS: nicardipine 20 MG/200 ML PREMIX 50 MG IV ×2 (02:57→06:34)
[2025-08-20] MEDS: piperacillin-tazobactam 3.375 GM in sodium chloride 0.9% (plus) 50 ML IV ×2 (03:55→15:53)
[2025-08-20 04:27] LABS: ABG PCO2 39.5 mmHg (35-45); ABG PH Result 7.48 (7.35-7.45); Arterial Blood Gas Hematocrit 22.8 % (37-47); Blood Gas Allen Test Pos; Blood Gas LPM 1.0 %; Blood Gas Operator Identificat BD; Blood Gas Sample Site Brachial, left; Blood Gas Sample Type Arterial; HCO3 ABG 29.5 mmol/L (22-26); PO2 ABG 71.7 mmHg (80.0-100.0); PO2 FiO2 Ratio Arterial Blood 275
[2025-08-20 06:00] LABS: Hematocrit 23.9 % (36-47); Hemoglobin 7.30 g/dL (11.27-16.99); Mean Corpuscular HGB Conc 30.5 g/dL (30-55); Mean Corpuscular Hemoglobin 27.2 pg (27-33); Mean Corpuscular Volume 89.2 fl (85-98); Nucleated Red Blood Cells % 0 %; Platelet Count 251 10^3/cmm (157-399); Red Blood Count 2.68 10^6/uL (3.85-5.65); White Blood Count 9.24 10^3/uL (3.29-11.43)
[2025-08-20 06:18] LABS: Alanine Aminotransferase 12 U/L (0-33); Albumin Level 3.7 g/dL (3.5-5.2); Alkaline Phosphatase 71 U/L (35-105); Anion Gap 16.8 (5-19); Aspartate Amino Transferase 28 U/L (0-32); Blood Urea Nitrogen 25 mg/dL (6-20); Calcium 9.4 mg/dL (8.5-10.5); Carbon Dioxide 26 mmol/L (22-29); Chloride 102 mmol/L (98-107); Creatinine Clr Calc Pharmacy 16.1071; Globulin 3.1 g/dL (1.3-4.6); Glucose 117 mg/dL (65-115); Osmolality Calculated 295 mOsm/kg (285-295); Potassium 4.8 mmol/L (3.5-5.1); Sodium 140 mmol/L (136-145); Total Protein 6.8 g/dL (6.6-8.7)
[2025-08-20] MEDS: LOSARTAN 100 MG TABLET PO (08:11)
--- NOTE | 2025-08-20 09:08 | PM.PN ---
Subjective Subjective: She is doing much better. She is awake and alert. On the phone with Carl to cancel today's outpatient dialysis. Breathing significantly improved. Not normally oxygen, currently on about a liter and a half by nasal cannula. No chest pain or pressure. Vitals/I&O/Wt Last Vital Signs Temp 99.2 F 08/20/25 08:00 Pulse 87 08/20/25 08:10 Resp 17 08/20/25 02:12 BP 134/70 08/20/25 08:10 Pulse Ox 97 08/20/25 08:10 O2 Del Method Nasal Cannula 08/20/25 08:10 O2 Flow Rate 2 08/20/25 08:10 FiO2 30 08/19/25 16:37 08/19/25 08/20/25 08/20/25 22:59 06:59 14:59 Intake Total 790 / 891.667 660.833 / 1552.500 80 / 80 Output Total 3968 / 3968 300 / 4268 Balance -3178 / -3076.333 360.833 / -2715.500 80 / 80 Weight last 48 hrs Weight 52.8 kg Weight 81 kg Weight 80.739 kg Physical Exam Narrative: Somnolent. Wakes up to voice. BiPAP on. Const: COMMON NORMALS: patient oriented x3 and alert GENERAL APPEARANCE: cooperative HENMT: COMMON NORMALS: oropharynx normal Neck/C-Spine: COMMON NORMALS: no JVD Chest: OTHER: Right chest tunneled HD catheter. Resp: COMMON NORMALS: normal respiratory effort AUSCULTATION: wheezes Cardio: COMMON NORMALS: no JVD, regular rhythm, S1 normal heart sound present, S2 normal heart sound present and No murmurs present (Cardio) RHYTHM: regular rhythm HEART SOUNDS: S1 normal heart sound present and S2 normal heart sound present GI: COMMON NORMALS: Normal to inspection, nondistended, normoactive bowel sounds present, Soft to palpation and non-tender PALPATION: Yes Soft to palpation Extremity: COMMON NORMALS: no joint enlargement and no pedal edema Neuro: COMMON NORMALS: patient oriented x3 and moves all extremities SENSORIUM/ORIENTATION: Yes alert Skin: COMMON NORMALS: no rashes or lesions noted GENERAL SKIN EXAM: no rashes or lesions noted Urinary Catheter Management: Segal: Cath Placed During This Visit: yes Reason for Continuing Indwelling Catheter: Accurate Measurement of Urinary Output in Critically Ill Patients Urinary Catheter Date of Insertion: 08/19/25 Urinary Catheter Time of Insertion: 12:28 Data 08/20/25 05:14 08/20/25 05:14 Micro: Microbiology 08/19/25 16:38 Blood Culture - Preliminary Blood SPECIMEN COLLECTED 08/19/25 15:20 Blood Culture - Preliminary Blood SPECIMEN COLLECTED A&P Assessment and plan 1. Acute hypoxemic respiratory failure: Improving/resolving acute hypoxic and hypercapnic respiratory failure. Weaned off BiPAP. Still requiring 1.5 L oxygen by nasal cannula. Not normally on oxygen. Wheezing and crackles for the most part resolved. Minimal wheeze still present in the lungs. Discussed with her empiric antibiotics for now as could not entirely exclude pneumonia, although leukocytosis is resolved today. Low-grade temp today 99.2. Received dialysis yesterday. Today would be her normal dialysis, pending nephrology evaluation. Blood pressure is doing better, is weaned off nicardipine drip this morning. Discussed with her transfer out of ICU. Acute pulmonary edema in the setting of TACO, possible TRALI, acute CHF with underlying ESRD, less likely pneumonia. Reviewed vitals, CBC, CMP, troponin series, EKG, discussed with nursing. Discussed with transplant case manager. - Continue bilevel positive airway pressure (BiPAP) support - Repeat ABG - Wean to heated high-flow nasal cannula as able with treatment of below conditions. 2. Complication of blood transfusion: Suspected transfusion-associated circulatory overload (TACO) versus transfusion-related acute lung injury (TRALI) : Improving/resolving. No discrepancy noted on transfusion reaction study on review. . Respiratory compromise and hypertension occurred during transfusion; transfusion stopped and blood returned for verification; TACO favored with concurrent volume overload; TRALI also considered. Discussed with her persistence of anemia. Reassess blood counts. - Hemodialysis for treatment of suspected TACO - Reassess blood counts (collect hemoglobin, lactate dehydrogenase [LDH], and reticulocyte count) 3. Pulmonary edema: Pulmonary edema : Resolving. On presentation CXR with bilateral pulmonary opacities consistent with pulmonary edema; volume overload suspected in the setting of transfusion and shortened dialysis. - Hemodialysis for volume removal - Noninvasive ventilatory support (BiPAP) with wean to heated high-flow nasal cannula as able Possible pneumonia : Less likely clinically per assessment, but treated empirically due to leukocytosis and respiratory findings while workup pending. - Empiric antibiotics - Follow-up blood cultures 4. Malignant hypertension: Hypertensive emergency : Resolved. Weaned off nicardipine drip this morning. Resume home medications. Per discussion with her she takes carvedilol, clonidine, losartan, nifedipine at home. Requested to resume carvedilol and clonidine, losartan. Monitor for risk of hypotension. Denies taking hydralazine anymore. Developed severe hypertension during transfusion; imaging shows cardiomegaly/pulmonary edema. Treated with IV agents and started on continuous infusion for blood pressure control. Plan to resume home antihypertensives when possible. - Weaned off nicardipine drip for hypertensive emergency. Blood pressures improved. Can transfer out of ICU. - Consider resumption of nifedipine as well depending on blood pressures - Resume usual home antihypertensives when able - HD per nephrology. Today would be her regular day. - Monitor on telemetry - Complete serial EKGs and troponins - Reviewed limited transthoracic echocardiogram (TTE). EF noted down to 45 to 50%. 5. Diastolic heart failure: Acute diastolic heart failure with pulmonary edema secondary to hypertensive emergency and TACO as above. Received Lasix push. Discussed with HD RN. HD is being started. Monitor intake and output. Reviewed limited TTE. Noted decrease in ejection fraction down to 45 to 50% compared to prior 55 to 60%. With noted positive delta troponin. Has not been having chest pain or pressure. Breathing has been improving. Was in respiratory failure on presentation and with underlying ESRD. However, does have underlying coronary disease as well and had an intervention in November with stenting of LAD and balloon angioplasty of first diagonal as well. Aspirin was stopped during last admission and beginning of July due to acute anemia, positive Hemoccult. Was post to continue on Plavix but states that prescription has run out and did not get a refill. Appreciate cardiology consultation. Plavix has been restarted. Cardiology may consider performing a stress test. Discussed with manager community to see if her surgery appointment could be moved to the day after given early appointment and tentative plans for stress testing. 6. Anemia due to chronic kidney disease, on chronic dialysis: Discussed with her some persistent anemia, hemoglobin 7.3 today. Without further drop, but was transiently up to 9 after transfusion yesterday. Will repeat blood counts. History of anemia with recent Hgb values ranging 7?9 g/dL; prior positive stool hemoccult; aspirin previously discontinued. Was supposed to continue on Plavix, resume. Discussed with her monitoring of hemoglobin, and she already has an appointment with surgery to arrange for endoscopy. However, given likely stress testing tomorrow, will see if this can be rescheduled. Alternatively if hemoglobin is does not remain stable may need to consider inpatient endoscopy. - Reassess blood counts - Collect hemoglobin level - Avoid anticoagulation due to prior history of anemia with positive hemoccult 7. Leukocytosis: Reviewed CBC, leukocytosis resolved. On presentation WBC 17.4 K/?L; low suspicion for infection but empiric antibiotics initiated pending workup. Suspect more likely reactive. - Discussed with her, empirically cover with antibiotics for possible pneumonia. - Follow-up blood cultures Plan: Recurrent bilateral pleural effusions with cardiomegaly : CXR shows bilateral pleural effusions and cardiomegaly; prior pleural procedures with negative cytology and biopsy for malignancy. - Reassess pleural effusions - Reviewed limited transthoracic echocardiogram (TTE) End-stage renal disease on hemodialysis : ESRD on intermittent hemodialysis (//Tue schedule); last session was stopped early due to clotting. - Continue hemodialysis - Use dialysis as part of management for volume overload/TACO Hyperkalemia: Mild hyperkalemia, potassium 5.4. Resolved with dialysis. Repeat chemistries requested. Type 2 diabetes mellitus with hyperglycemia : POC glucose, doing better. Continue SSI; diabetes mellitus type 2 known history. - insulin sliding scale - Monitor [id number] (POC) glucose - Monitor for hyperglycemia and hypoglycemia - Start consistent carbohydrate diet when oral intake resumes; may trial clear liquids as tolerated Elevated troponin : Troponin series reviewed, noted positive troponin delta, although in setting of ESRD. But does have underlying known coronary disease with intervention in November. Reviewed limited TTE, noted decrease in ejection fraction down to 45-50% compared to 55-60 previously. Discussed with cardiology, appreciate consultation. Tentatively may plan for stress test tomorrow, but pending assessment. Will request for no caffeine in diet. As per was recently stopped aspirin due to acute anemia, positive Hemoccult. However, states was not aware that she should continue on Plavix as well as her prescription ran out and she did not get a refill. Plavix has been resumed. Reassess blood counts. - Complete serial EKGs and troponins - Reviewed limited transthoracic echocardiogram (TTE) - Monitor on telemetry Hospital care bundle/precautions : General inpatient safety and precautionary measures noted. - Avoid sedating medications - Sequential compression devices (SCDs) for deep vein thrombosis (DVT) prophylaxis - Hold anticoagulation due to prior anemia with positive hemoccult Requested to confirm home medication list. PDMP PDMP Reviewed: Not Reviewed Attestations Medical Necessity Statement*: Continue admission for assessment and management of resolving/improving acute respiratory failure with hypoxia and hypercapnia, circulatory overload, noted troponin elevation, acute decrease in left ventricular function, in a lady with underlying ESRD, anemia, known CAD with recent intervention. and High MDM includes amount and/or complexity of data reviewed/ordered [ resulted lab(s)/test(s), ordered lab(s)/test(s) and other healthcare professional discussion] and described risk of complication, morbidity or mortality of management as documented Diagnoses Acute hypoxemic respiratory failure J96.01 Complication of blood transfusion T80.92XA Pulmonary edema J81.1 Malignant hypertension I10 Diastolic heart failure I50.30 Anemia due to chronic kidney disease, on chronic dialysis N18.6; D63.1; Z99.2 Anemia type: due to chronic kidney disease Chronic kidney disease stage: on chronic dialysis Leukocytosis D72.829
--- NOTE | 2025-08-20 09:28 | P.PN_ITS ---
Subjective 2 Subjective: no new c/o Medications: Reviewed: Yes Vitals/I&O/Wt Last Vital Signs Temp 99.2 F 08/20/25 08:00 Pulse 87 08/20/25 08:10 Resp 17 08/20/25 02:12 BP 134/70 08/20/25 08:10 Pulse Ox 97 08/20/25 08:10 O2 Del Method Nasal Cannula 08/20/25 08:10 O2 Flow Rate 2 08/20/25 08:10 FiO2 30 08/19/25 16:37 08/19/25 08/20/25 08/20/25 22:59 06:59 14:59 Intake Total 790 / 891.667 660.833 / 1552.500 80 / 80 Output Total 3968 / 3968 300 / 4268 Balance -3178 / -3076.333 360.833 / -2715.500 80 / 80 Weight last 48 hrs Weight 52.8 kg Weight 81 kg Weight 80.739 kg Physical Exam 2 Narrative: awake , alert No distress No JVD S1S2 RRR Lungs with decreased BS pete Abd soft , non tender Ext no edema Urinary Catheter Management: Segal: Cath Placed During This Visit: yes Reason for Continuing Indwelling Catheter: Accurate Measurement of Urinary Output in Critically Ill Patients Urinary Catheter Date of Insertion: 08/19/25 Urinary Catheter Time of Insertion: 12:28 Data 08/20/25 05:14 08/20/25 05:14 Micro: Microbiology 08/19/25 16:38 Blood Culture - Preliminary Blood SPECIMEN COLLECTED 08/19/25 15:20 Blood Culture - Preliminary Blood SPECIMEN COLLECTED A&P Assessment and plan 1. End stage renal disease on dialysis: Plan: 1. End-stage renal disease: On TTS schedule as outpatient, last HD on Tuesday, now presented with flash pulmonary edema, likely TACO. - s/p emergent dialysis yesterday and HD again today 2. Malignant hypertension: Resumed home meds and reevaluate after HD, on nicardipine drip currently ARU on today still 3. CHF with pulm edema , HD as above 4.Anemia , s/p transfusion pt evaluated using audiovisual cart. Time spent 40 min PDMP PDMP Reviewed: Not Reviewed Attestations 2 Medical Necessity Statement*: per shona Coding Level of Care Code Acute Code for Chg Fwd Diagnoses End stage renal disease on dialysis N18.6; Z99.2
[2025-08-20] MEDS: epoetin alfa-epbx (ESRD) 1 ML 60 UNIT HE (12:05)
--- NOTE | 2025-08-20 12:30 | P.CONIM_ITS ---
Providers/Reason For Consult 2 Consulting Physician/Specialty*: TED Hinojosa MD/cardiology Reason for Consult*: Patient with acute heart failure/atherosclerotic heart disease Requesting Physician: Dr. Abdul Attending Physician: Sean Abdul Primary Care Provider: SEGUN Mulligan History of Present Illness History of Present Illness Lizy Evans is a 54 year old female with end-stage renal disease, went into acute heart failure following blood transfusion.History of atherosclerotic heart disease and previous PCI. Cardiology consult is requested for further cardiac evaluation recommendations. This patient is known to have uncontrolled blood pressure, diabetes,, dyslipidemia and atherosclerotic heart diseas. She underwent a cardiac catheterization in November of this year for dyspnea on exertion. She was found to have a high-grade lesion in the mid Left anterior descending artery and in the first diagonal artery. Underwent a PCI of these lesions. She has been doing okay since then. Towards the end of June, she was admitted to the hospital with hypoxic respiratory failure. Her echocardiogram revealed ejection fraction around 50 to 55%. She had a Myocardial perfusion imaging at that time which revealed no significant ischemia. She is diagnosed with anemia. Stool occult blood was positive. She is in the process of undergoing GI workup. She had a hemoglobin of 7.3. She received a 1 unit of blood transfusion yesterday. While undergoing the transfusion, she went into heart failure and respiratory distress. For that reason, she was brought to the ICU. The shortness of breath has significantly improved. Patient is diagnosed with end-stage renal disease. She has been on dialysis since last year. She was on peritoneal dialysis up until a month ago. Because of the recurrent pleural effusion and possible peritonitis, the peritoneal dialysis was discontinued. She is on hemodialysis from the beginning of this month. Her father had a myocardial infarction and of the same in his 50s. Mother has a history of hypertension and CVA. Denies any smoking abuse or alcohol abuse. Review of Systems 2 Narrative: CONSTITUTIONAL: No fever or chills. EYES: No blurring of vision or other visual disturbances lately. ENT: No hoarseness of voice, auditory disturbances or sore throat. CARDIOVASCULAR: As mentioned above. RESPIRATORY: No significant cough. GASTROINTESTINAL: Hemoccult positive GENITOURINARY: Incisional disease on dialysis INTEGUMENTARY: No skin rashes or history of skin cancer. NEURO: No transient ischemic attacks or amaurosis. PSYCHIATRIC: No history of psychosis or major depression. HEMATOLOGIC: No bleeding disorders or significant anemia. ENDOCRINE: History of uncontrolled diabetes MUSCULOSKELETAL: No recent joint pain or swelling. ALLERGY/IMMUNOLOGY: As mentioned above. Medications/Allergies Home Medications ?Medication ?Instructions ?Recorded ?Confirmed ?Last Taken ?Type cetirizine 10 mg tablet 10 mg PO DAILY PRN Allergy S ymptoms 05/23/24 08/19/25 08/18/25 History calcitriol 0.25 mcg capsule 0.25 mcg PO DAILY 10/30/24 08/19/25 08/18/25 History sevelamer carbonate 800 mg tablet 800 mg PO TID 08/19/25 08/18/25 History torsemide 100 mg tablet 100 mg PO DAILY 12/07/2401/0808/18/25 History sodium bicarbonate 650 mg tablet 650 mg PO BID 5 08/19/25 08/18/25 History diabetic shoes with 3 inserts #1 ea 04/18/25 08/19/25 08/18/25 Rx atorvastatin 40 mg tablet 40 mg PO DAILY 06/26/2501/0808/18/25 History gentamicin 0.1 % topical cream See Rx Instructions .Ro lavinia .COMPLEX 06/28/25 08/19/25 08/18/25 History insulin aspart U-100 100 unit/mL See Rx Instructions . Route 07/12/25 08/19/25 08/18/25 Rx (3 mL) subcutaneous pen (Novolog .COMPLEX #15 mL FlexPen U-100 Insulin aspart) pantoprazole 40 mg tablet,delayed 40 mg PO QAM #60 tab s 07/20/25 08/19/25 08/18/25 Rx release (Protonix) sucralfate 1 gram tablet (Carafate) 1 g PO TID 12 week s #252 tabs 07/20/25 08/19/25 08/18/25 Rx blood-glucose sensor (FreeStyle #2 ea 07/31/252 5 08/18/25 Rx Palak 3 Plus Sensor device) duloxetine 30 mg capsule,delayed 30 mg PO .q am #30 ca ps 08/12/25 08/19/25 08/18/25 Rx release vit B,C-folic ac 800 mcg-zinc 12.5 See Rx Instructions .Route .COMPLEX 08/19/25 08/19/25 Unknown History mg-selen-D3 2,000 unit-vit E tablet (RenaPlex-D) nifedipine 90 mg tablet,extended 90 mg PO DAILY 08/20/25 Unknown History release Allergies Allergy/AdvReac Type Severity Reaction Status Date / Time venom-honey bee Allergy Severe ALGY-Redness Verified 08/16/25 17:30 of Skin marijuana (cannabis) Allergy Intermediate ADR-Nausea Verified 08/16/25 17:30 codeine AdvReac Severe ADR-Vomitin Verified 08/16/25 17:30 g morphine AdvReac Severe ADR-Vomitin Verified 08/16/25 17:30 g propoxyphene (From AdvReac Severe ADR-Vomitin Verified 08/16/25 17:30 Darvocet-N) g latex AdvReac Intermediate ALGY-Rash Verified 08/16/25 17:30 Current Medications Generic Name Dose Route Start Last Admin Trade Name Freq PRN Reason Stop Dose Admin Carvedilol 18.75 mg 08/20/25 07:50 08/20/25 08:10 Carvedilol 12.5 Mg Tablet PO 18.75 mg BID ALMITA Administration Clonidine HCl 0.1 mg 08/20/25 07:50 08/20/25 08:10 Clonidine 0.1 Mg Tablet PO 0.1 mg TID ALMITA Administration Clopidogrel Bisulfate 75 mg 08/20/25 07:50 08/20/25 08:11 Clopidogrel 75 Mg Tablet PO 75 mg DAILY ALMITA Administration Nicardipine/Sodium Chloride 20 mg in 200 mls @ 0 mls/hr 08/19/25 10:00 08/20/25 08:10 Cardene IV 0 mg/hr .Q0M ALMITA 0 mls/hr Protocol Titration Per Protocol Piperacillin Sod/Tazobactam 50 mls @ 12.5 mls/hr 08/19/25 15:00 08/20/25 03:55 Sod 3.375 gm/ Sodium Chloride IV 12.5 mls/hr Q12H ALMITA Administration Protocol Insulin Human Lispro 0 unit 08/19/25 18:00 08/20/25 11:36 Insulin Lispro 100 Unit/1 Ml SUBCUT 2 unit WM&BEDTIME ALMITA Administration Protocol Losartan Potassium 100 mg 08/20/25 07:50 08/20/25 08:11 Losartan 100 Mg Tablet PO 100 mg DAILY ALMITA Administration Pantoprazole Sodium 40 mg 08/19/25 13:15 08/19/25 13:38 Pantoprazole 40 Mg Sdv IVP 40 mg Q24H ALMITA Administration PFSH Acute 2 PFSH: Medical History Mediastinal lymphadenopathy Anemia Sepsis Pleural effusion PAD (peripheral artery disease) Essential hypertension Peritoneal dialysis catheter in place Uncontrolled type 2 diabetes mellitus Anemia of chronic disease ESRD (end stage renal disease) Diabetic neuropathy, type II diabetes mellitus Diabetic retinopathy Bereavement Major depressive disorder, recurrent, in partial remission Psychiatric care FH: total knee replacement left HLA B27 (HLA B27 positive) High risk medication use Inflammatory arthritis Seronegative spondyloarthropathy Chronic insomnia See subjective note below. Chronic pain See subjective note below. Chronic post-traumatic stress disorder (PTSD) Generalized anxiety disorder Major depressive disorder, recurrent, moderate Surgical History History of cataract extraction History of hysterectomy for benign disease History of tonsillectomy History of appendectomy History of left knee replacement Family History Mother Hypertension Diabetes Psychiatric illness Thyroid disease Father , in his 50's Family history of premature coronary artery disease Hyperlipidemia Myocardial infarction Brother Hypertension Sister No problems noted. Denies family history of Rheumatoid arthritis Lupus Social History Smoking and tobacco/nicotine status: never used tobacco/nicotine Second hand smoke exposure: No Alcohol intake: never Substance/Drug Use: never Adopted: No Caregiver/support person: No Lives independently: No Household members: family service: No Current occupational status: unemployed and disabled Sexually active: Yes Do you think of yourself as: Straight/Heterosexual Current gender identity: Female Vitals/I&O/Wt Last Vital Signs Temp 99.2 F 08/20/25 08:00 Pulse 72 08/20/25 10:15 Resp 17 08/20/25 02:12 BP 139/60 08/20/25 10:15 Pulse Ox 100 08/20/25 10:15 O2 Del Method Nasal Cannula 08/20/25 10:15 O2 Flow Rate 2 08/20/25 10:15 FiO2 30 08/19/25 16:37 08/19/25 08/20/25 08/20/25 22:59 06:59 14:59 Intake Total 790 / 891.667 660.833 / 1552.500 440 / 440 Output Total 3968 / 3968 300 / 4268 Balance -3178 / -3076.333 360.833 / -2715.500 440 / 440 Weight last 48 hrs Weight 116 lb 6.465 oz Weight 178 lb 9.191 oz Weight 178 lb Physical Exam 2 Narrative: GENERAL: The patient is alert and oriented times three. Not in any acute distress. HEENT: No significant pallor, icterus or lymphadenopathy.Oral cavity: There are no mucous membrane lesions. NECK: Trachea appears to be central. No masses noted. No JVD or thyromegaly appreciated. RESPIRATORY: Chest is symmetrical. No intercostals muscle retraction or any accessory muscle activation. There is no chest wall tenderness. Breath sounds are heard bilaterally. No rales or rhonchi heard. No evidence of any consolidation. BREASTS: Deferred. HEART: The heart sounds are normal. No S3 or S4. Short systolic murmur at the base of the heart. No diastolic murmurs. No pericardial rub ABDOMEN: No vessel pulsations or distention. No tenderness. No organomegaly appreciated. Bowel sounds are normally heard. : Deferred. RECTAL: Deferred. LYMPHATIC: No lymphadenopathy noted in the neck. EXTREMITIES: Trace edema with no cyanosis. MUSCULOSKELETAL: No acute joint deformities or swelling SKIN: There are no significant rashes or ecchymosis NEUROPSYCHIATRIC: The patient is alert and oriented x3. Appears to be in a good mood. No tremors or rigidity noted. Urinary Catheter Management: Segal: Cath Placed During This Visit: yes Reason for Continuing Indwelling Catheter: Accurate Measurement of Urinary Output in Critically Ill Patients Urinary Catheter Date of Insertion: 08/19/25 Urinary Catheter Time of Insertion: 12:28 Data 08/20/25 05:14 08/20/25 05:14 Other Labs: Laboratory Last Values WBC 9.24 10^3/uL (3.29-11.43) 08/20/25 05:14 RBC 2.68 10^6/uL (3.85-5.65) L 08/20/25 05:14 Hgb 7.30 g/dL (11.27-16.99) L 08/20/25 05:14 Hct 23.9 % (36-47) L 08/20/25 05:14 MCV 89.2 fl (85-98) 08/20/25 05:14 MCH 27.2 pg (27-33) 08/20/25 05:14 MCHC 30.5 g/dL (30-55) 08/20/25 05:14 RDW 17.7 % (12.1-15.1) H 08/20/25 05:14 Plt Count 251 10^3/cmm (157-399) 08/20/25 05:14 MPV 10.1 fL (7.4-10.4) 08/20/25 05:14 Neut % (Auto) 68.6 % 08/20/25 05:14 Lymph % (Auto) 22.3 % 08/20/25 05:14 Emanuel % (Auto) 6.5 % 08/20/25 05:14 Eos % (Auto) 1.5 % 08/20/25 05:14 Baso % (Auto) 0.5 % 08/20/25 05:14 Reticulocyte % (Auto) 1.6 % (0.5-2.0) 08/19/25 14:18 Neut # (Auto) 6.33 10^3/uL (1.8-7.7) 08/20/25 05:14 Lymph # (Auto) 2.1 10^3/uL (0.8-4.8) 08/20/25 05:14 Emanuel # (Auto) 0.6 10^3/uL (0.2-0.9) 08/20/25 05:14 Eos # (Auto) 0.1 10^3/uL (0.0-0.8) 08/20/25 05:14 Baso # (Auto) 0.1 10^3/uL (0.0-0.1) 08/20/25 05:14 Nucleated RBC % (auto) 0 % 08/20/25 05:14 Nucleated RBCs # 0.0 /100WBC 08/20/25 05:14 Retic Production Index 0.96 08/19/25 14:18 Haptoglobin 181.0 mg/L (30-200) 08/19/25 14:18 Specimen Type Arterial 08/20/25 04:15 Sample Site Brachial, left 08/20/25 04:15 ABG pH 7.48 (7.35-7.45) H 08/20/25 04:15 ABG pCO2 39.5 mmHg (35-45) 08/20/25 04:15 ABG pO2 71.7 mmHg (80.0-100.0) L 08/20/25 04:15 ABG PO2/FiO2 Ratio 275 08/20/25 04:15 ABG HCO3 29.5 mmol/L (22-26) H 08/20/25 04:15 ABG O2 Saturation 82.3 08/19/25 09:50 ABG Base Excess 5.6 mmol/L (-2.0-2.0) H 08/20/25 04:15 Andry Test Pos 08/20/25 04:15 A-a O2 Gradient 4.9 mmHg (5-10) L 08/19/25 09:50 Hematocrit 22.8 % (37-47) L 08/20/25 04:15 Hgb O2 Saturation 80.6 % (95-100) L 08/19/25 09:50 Carboxyhemoglobin 1.1 %THgb (0.4-20.1) 08/19/25 09:50 Methemoglobin 0.9 % (0.4-1.5) 08/19/25 09:50 Total Hemoglobin 10.2 g/dL (12-16) L 08/19/25 09:50 Sodium 140.0 mmol/L (131-143) 08/19/25 09:50 Potassium 5.5 mmol/L (3.5-5.0) H 08/19/25 09:50 Glucose 338.0 mg/dL (70-115) H 08/19/25 09:50 Ionized Calcium 1.3 mmol/L (1.1-1.4) 08/19/25 09:50 O2 Delivery Device Nc 08/20/25 04:15 O2 Liters/Min 1.0 % 08/20/25 04:15 FiO2 26.0 % 08/20/25 04:15 Marketing Communications Leader ID Bd 08/20/25 04:15 Sodium 140 mmol/L (136-145) 08/20/25 05:14 Potassium 4.8 mmol/L (3.5-5.1) 08/20/25 05:14 Chloride 102 mmol/L (98-107) 08/20/25 05:14 Carbon Dioxide 26 mmol/L (22-29) 08/20/25 05:14 Anion Gap 16.8 (5-19) 08/20/25 05:14 BUN 25 mg/dL (6-20) H 08/20/25 05:14 Creatinine 3.4 mg/dL (0.5-0.9) H 08/20/25 05:14 GFR Calculation 14.1 mL/min (90-130) L 08/20/25 05:14 Glucose 117 mg/dL (65-115) H 08/20/25 05:14 POC Glucose 164 mg/dL (70-110) H 08/20/25 11:00 Calculated Osmolality 295 mOsm/kg (285-295) 08/20/25 05:14 Calcium 9.4 mg/dL (8.5-10.5) 08/20/25 05:14 Total Bilirubin 0.9 mg/dL (0.15-1.2) 08/20/25 05:14 AST 28 U/L (0-32) 08/20/25 05:14 ALT 12 U/L (0-33) 08/20/25 05:14 Alkaline Phosphatase 71 U/L (35-105) 08/20/25 05:14 Lactate Dehydrogenase 263 U/L (135-214) H 08/19/25 14:18 Troponin T Baseline 205 ng/L (0-10) H* 08/19/25 10:15 Troponin T 120 Minute 203.9 ng/L (0-10) H 08/19/25 12:26 Delta Troponin T -1.1 ABS# (0-10) L 08/19/25 12:26 Troponin T Hi Sens 6Hr 258.6 ng/L (0-10) H 08/19/25 16:38 Troponin T Hi Sens 6Hr Delta 53.6 ng/L (0-12) H* 08/19/25 16:38 Total Protein 6.8 g/dL (6.6-8.7) 08/20/25 05:14 Albumin 3.7 g/dL (3.5-5.2) 08/20/25 05:14 Globulin 3.1 g/dL (1.3-4.6) 08/20/25 05:14 Urine Color Yellow (Yellow) 08/19/25 12:17 Urine Appearance Clear (CLEAR) 08/19/25 12:17 Urine pH 8.5 (5-7) A 08/19/25 12:17 Ur Specific [place] 1.011 (1.005-1.030) 08/19/25 12:17 Urine Protein 3+ (Negative) A 08/19/25 12:17 Urine Glucose (UA) 2+ (Normal) H 08/19/25 12:17 Urine Ketones Negative (Negative) 08/19/25 12:17 Urine Blood Non-haemolysed trace (Negative) 08/19/25 12:17 Urine Nitrate Negative (Negative) 08/19/25 12:17 Urine Bilirubin Negative (Negative) 08/19/25 12:17 Urine Urobilinogen 0.2 mg/dL (Negative) 08/19/25 12:17 Ur Leukocyte Esterase Negative (Negative) 08/19/25 12:17 Urine RBC 0-2 /hpf (0-2) 08/19/25 12:17 Urine WBC 0-5 /hpf (0-5) 08/19/25 12:17 Ur Squamous Epith Cells 0-5 /hpf (0-5) 08/19/25 12:17 Ur Transition Epith Cell 0-4 /hpf 08/19/25 12:17 Amorphous Sediment Not Reportable 08/19/25 12:17 Urine Bacteria None seen /hpf (NONE) 08/19/25 12:17 Hyaline Casts 0-4 /lpf H 08/19/25 12:17 Reaction Clerical Check No discrepancy 08/19/25 14:18 Pre-Trans Blood Type Op 08/19/25 14:18 Post-Trans Blood Type O Positive 08/19/25 14:18 Post-Tx Visible Hemolys No hemolysis 08/19/25 14:18 Post-Trans ARSLAN Negative 08/19/25 14:18 Micro: Microbiology 08/19/25 16:38 Blood Culture - Preliminary Blood SPECIMEN COLLECTED 08/19/25 15:20 Blood Culture - Preliminary Blood SPECIMEN COLLECTED EKG 1: My Interpretation: Normal sinus rhythm with a diffuse nonspecific T wave changes in the anterolateral leads. Other data: Echocardiogram on 08/19/2024 Mild diffuse hypokinesis of the left ventricle with ejection fraction of 45 to 50%. (visual). Mildly increased left atrial size. Trace to mild mitral valve regurgitation. Thickened aortic valve. Trace tricuspid valve regurgitation. Estimated pulmonary artery peak systolic pressure 27 mmHg. There is no pericardial effusion. There are no intracardiac masses. Compared to study from 07/16/2025, the LV ejection fraction patient is slightly decreased Cardiac catheterization in November 2024 Left Main has no disease. * Circumflex has no disease. * Right Coronary Artery has no disease. * Proximal Left Anterior Descending: moderate 50% stenosis, LUTHER: 3 flow. * Mid Left Anterior Descending: significant 80% stenosis, LUTHER: 3 flow. * 1st Diagonal: obstructive 70% stenosis, LUTHER: 3 flow. * Coronary angiography shows right dominance. * Mid Left Anterior Descendin% stenosis treated with a AB TREK 2.50X15 RX BALLOON, ITZ Prince NITA 3.0X22 VICKI, and MDFaustino VALLEJO EUPHORA RX [id number] BALLOON. 0% residual stenosis, LUTHER: 3 flow. * 1st Diagonal: 70% stenosis treated with a AB MINI TREK 2.00X12 RX BALLOON. 20% residual stenosis, LUTHER: 3 flow. A&P Assessment and plan 1. Acute decompensated heart failure: The etiology of the heart acute heart failure could be multifactorial. Left- ventricular diastolic dysfunction, fluid overload, end-stage renal disease, anemia, etc. are contributing factor. Coronary ischemia cannot be excluded. EKG has some nonspecific ST-T changes. The elevated troponin T, could be related to type II. However because of the end-stage renal disease, the troponin T evaluation could be misleading. 2. Essential hypertension: For better control of the blood pressure, patient may be started on hydralazine 50 mg p.o. every 8 hours. Proper use of the medication were discussed with the patient. 3. Mixed hyperlipidemia: May continue on the current management. 4. Congestive heart failure, unspecified HF chronicity, unspecified heart failure type: May be carefully treated with diuretics and dialysis. 5. Uncontrolled type 2 diabetes mellitus with hyperglycemia: Aggressive manage would be appropriate. Plan: Since the patient has no chest pain or any other specific cardiac symptoms and also in the absence of any objective evidence of ischemia, it may be appropriate to hold off for any further investigation at this time. However if she has recurrent heart failure, repeat cardiac elevation to reevaluate the coronary status would be appropriate. Thank you for the opportunity to evaluate this patient and make these recommendations PDMP PDMP Reviewed: Not Reviewed Coding Level of Care Code 38183 Diagnoses Acute decompensated heart failure I50.9 Essential hypertension I10 Mixed hyperlipidemia E78.2 Hyperlipidemia type: mixed hyperlipidemia Congestive heart failure, unspecified HF chronicity, unspecified heart failure type I50.9 Heart failure type: unspecified Heart failure chronicity: unspecified Uncontrolled type 2 diabetes mellitus with hyperglycemia E11.65 Glycemic state: with hyperglycemia
[2025-08-20] MEDS: heparin, porcine 1,000 unit/mL INJ 10 mL 10000 UNIT INTRACATH (12:36)
[2025-08-20] MEDS: pantoprazole 40 mg SDV IVP (15:53)
[2025-08-21] VITALS (40 sets, daily range): BP systolic 136–196; BP diastolic 62–87; PULSE 63–88; RESP 4–21; TEMP 36.8; O2SAT 93–100
[2025-08-21] MEDS: piperacillin-tazobactam 3.375 GM in sodium chloride 0.9% (plus) 50 ML IV (03:24)
[2025-08-21] MEDS: NIFEdipine ER (24 hr) 30 mg Tablet 90 MG PO (04:39)
[2025-08-21] MEDS: LOSARTAN 100 MG TABLET PO (04:42)
[2025-08-21 05:07] LABS: Hematocrit 24.3 % (36-47); Hemoglobin 7.30 g/dL (11.27-16.99); Mean Corpuscular HGB Conc 30.0 g/dL (30-55); Mean Corpuscular Hemoglobin 27.4 pg (27-33); Mean Corpuscular Volume 91.4 fl (85-98); Nucleated Red Blood Cells % 0 %; Platelet Count 215 10^3/cmm (157-399); Red Blood Count 2.66 10^6/uL (3.85-5.65); White Blood Count 5.80 10^3/uL (3.29-11.43)
[2025-08-21 05:32] LABS: Alanine Aminotransferase 13 U/L (0-33); Albumin Level 3.2 g/dL (3.5-5.2); Alkaline Phosphatase 61 U/L (35-105); Anion Gap 18.1 (5-19); Aspartate Amino Transferase 21 U/L (0-32); Blood Urea Nitrogen 17 mg/dL (6-20); Calcium 8.8 mg/dL (8.5-10.5); Carbon Dioxide 23 mmol/L (22-29); Chloride 99 mmol/L (98-107); Creatinine Clr Calc Pharmacy 21.3953; Globulin 3.2 g/dL (1.3-4.6); Glucose 118 mg/dL (65-115); Osmolality Calculated 285 mOsm/kg (285-295); Potassium 4.1 mmol/L (3.5-5.1); Sodium 136 mmol/L (136-145); Total Protein 6.4 g/dL (6.6-8.7)
--- NOTE | 2025-08-21 08:57 | PM.PN ---
Subjective Subjective: Patient has not had any recurrence of her shortness of breath. She is feeling much better and is back to her baseline status. No fever or chills. No significant arrhythmias on the monitor. Medications: Medication Review Details: Current Medications Acetaminophen (Acetaminophen 325 Mg Tablet) 650 mg PO Q6H PRN PRN Reason: Mild/Mod Pain Or Temp >/= 101 Carvedilol (Carvedilol 12.5 Mg Tablet) 18.75 mg PO BID [facility] Last Admin: 08/21/25 04:40 Dose: 18.75 mg Clonidine HCl (Clonidine 0.1 Mg Tablet) 0.1 mg PO TID [facility] Last Admin: 08/21/25 04:41 Dose: 0.1 mg Clopidogrel Bisulfate (Clopidogrel 75 Mg Tablet) 75 mg PO DAILY [facility] Last Admin: 08/21/25 04:42 Dose: 75 mg Glucagon (Glucagon 1 Mg/Ml Kit 1 Ml) 1 mg IM ONCE PRN; Protocol PRN Reason: Adult Acute Hypoglycemia Nursing Prot. Hydralazine HCl (Hydralazine 50 Mg Tablet) 50 mg PO TID [facility] Last Admin: 08/21/25 04:42 Dose: 50 mg Nicardipine/Sodium Chloride (Cardene) 20 mg in 200 mls @ 0 mls/hr IV .Q0M ALMITA; Protocol Last Titration: 08/20/25 08:10 Dose: 0 mg/hr, 0 mls/hr Sodium Chloride (Sodium Chloride 0.9%) 1,000 mls @ 0 mls/hr IV .Q0M PRN PRN Reason: hypotension or symptomatic Piperacillin Sod/Tazobactam (Sod 3.375 gm/ Sodium Chloride) 50 mls @ 12.5 mls/hr IV Q12H [facility]; Protocol Last Admin: 08/21/25 03:24 Dose: 12.5 mls/hr Dextrose (D5w) 500 mls @ 0 mls/hr IV ONCE PRN; Protocol PRN Reason: Adult Acute Hypoglycemia Prot Dextrose (D10w) 125 mls @ 750 mls/hr IV PRN PRN; Protocol PRN Reason: Adult Acute Hypoglycemia Nursing Protocol Dextrose (D10w) 250 mls @ 1,000 mls/hr IV PRN PRN; Protocol PRN Reason: Adult Acute Hypoglycemia Nursing Protocol Sodium Chloride (Sodium Chloride 0.9%) 1,000 mls @ 0 mls/hr IV .Q0M PRN PRN Reason: hypotension or symptomatic Albumin Human (Albumin) 12.5 gm in 50 mls @ 60 mls/hr IV PRN PRN PRN Reason: Hypotension and/or symptomatic Insulin Human Lispro (Insulin Lispro 100 Unit/1 Ml) 0 unit SUBCUT WM&BEDTIME [facility]; Protocol Last Admin: 08/21/25 08:06 Dose: 2 unit Losartan Potassium (Losartan 100 Mg Tablet) 100 mg PO DAILY [facility] Last Admin: 08/21/25 04:42 Dose: 100 mg Nifedipine (Nifedipine Er (24 Hr) 30 Mg Tablet) 90 mg PO DAILY [facility] Last Admin: 08/21/25 04:39 Dose: 90 mg Ondansetron HCl (Ondansetron 2 Mg/Ml Sdv 2 Ml) 4 mg IVP Q6H PRN PRN Reason: vomiting, or N/V if npo Pantoprazole Sodium (Pantoprazole 40 Mg Sdv) 40 mg IVP Q24H [facility] Last Admin: 08/20/25 15:53 Dose: 40 mg Vitals/I&O/Wt Last Vital Signs Temp 98.3 F 08/21/25 04:30 Pulse 88 08/21/25 08:16 Resp 15 08/21/25 06:00 BP 148/63 08/21/25 06:00 Pulse Ox 96 08/21/25 08:16 O2 Del Method Nasal Cannula 08/21/25 08:16 O2 Flow Rate 1 08/21/25 08:16 FiO2 30 08/19/25 16:37 08/20/25 08/21/25 08/21/25 22:59 06:59 14:59 Intake Total 1290 / 2140 0 / 2140 Output Total 2500 / 2500 Balance -1210 / -360 0 / -360 Weight last 48 hrs Weight 167 lb 8.821 oz Weight 116 lb 6.465 oz Weight 178 lb 9.191 oz Weight 178 lb Physical Exam Narrative: GENERAL: The patient is alert and oriented times three. Not in any acute distress. HEENT: No significant pallor, icterus or lymphadenopathy.Oral cavity: There are no mucous membrane lesions. NECK: Trachea appears to be central. No masses noted. No JVD or thyromegaly appreciated. RESPIRATORY: Chest is symmetrical. No intercostals muscle retraction or any accessory muscle activation. There is no chest wall tenderness. Breath sounds are heard bilaterally. No rales or rhonchi heard. No evidence of any consolidation. BREASTS: Deferred. HEART: The heart sounds are normal. No S3 or S4. Short systolic murmur at the base of the heart. No diastolic murmurs. No pericardial rub ABDOMEN: No vessel pulsations or distention. No tenderness. No organomegaly appreciated. Bowel sounds are normally heard. : Deferred. RECTAL: Deferred. LYMPHATIC: No lymphadenopathy noted in the neck. EXTREMITIES: Trace edema with no cyanosis. MUSCULOSKELETAL: No acute joint deformities or swelling SKIN: There are no significant rashes or ecchymosis NEUROPSYCHIATRIC: The patient is alert and oriented x3. Appears to be in a good mood. No tremors or rigidity noted. Urinary Catheter Management: Segal: Cath Placed During This Visit: yes Reason for Continuing Indwelling Catheter: Accurate Measurement of Urinary Output in Critically Ill Patients Urinary Catheter Date of Insertion: 08/19/25 Urinary Catheter Time of Insertion: 12:28 Data 08/21/25 04:32 08/21/25 04:32 Other Labs: Laboratory Last Values WBC 5.80 10^3/uL (3.29-11.43) 08/21/25 04:32 RBC 2.66 10^6/uL (3.85-5.65) L 08/21/25 04:32 Hgb 7.30 g/dL (11.27-16.99) L 08/21/25 04:32 Hct 24.3 % (36-47) L 08/21/25 04:32 MCV 91.4 fl (85-98) 08/21/25 04:32 MCH 27.4 pg (27-33) 08/21/25 04:32 MCHC 30.0 g/dL (30-55) 08/21/25 04:32 RDW 16.8 % (12.1-15.1) H 08/21/25 04:32 Plt Count 215 10^3/cmm (157-399) 08/21/25 04:32 MPV 10.2 fL (7.4-10.4) 08/21/25 04:32 Neut % (Auto) 47.8 % 08/21/25 04:32 Lymph % (Auto) 33.8 % 08/21/25 04:32 [place] % (Auto) 9.5 % 08/21/25 04:32 Eos % (Auto) 6.6 % 08/21/25 04:32 Baso % (Auto) 0.9 % 08/21/25 04:32 Reticulocyte % (Auto) 1.6 % (0.5-2.0) 08/19/25 14:18 Neut # (Auto) 2.78 10^3/uL (1.8-7.7) 08/21/25 04:32 Lymph # (Auto) 2.0 10^3/uL (0.8-4.8) 08/21/25 04:32 [place] # (Auto) 0.6 10^3/uL (0.2-0.9) 08/21/25 04:32 Eos # (Auto) 0.4 10^3/uL (0.0-0.8) 08/21/25 04:32 Baso # (Auto) 0.1 10^3/uL (0.0-0.1) 08/21/25 04:32 Nucleated RBC % (auto) 0 % 08/21/25 04:32 Nucleated RBCs # 0.0 /100WBC 08/21/25 04:32 Retic Production Index 0.96 08/19/25 14:18 Haptoglobin 181.0 mg/L (30-200) 08/19/25 14:18 Specimen Type Arterial 08/20/25 04:15 Sample Site Brachial, left 08/20/25 04:15 ABG pH 7.48 (7.35-7.45) H 08/20/25 04:15 ABG pCO2 39.5 mmHg (35-45) 08/20/25 04:15 ABG pO2 71.7 mmHg (80.0-100.0) L 08/20/25 04:15 ABG PO2/FiO2 Ratio 275 08/20/25 04:15 ABG HCO3 29.5 mmol/L (22-26) H 08/20/25 04:15 ABG O2 Saturation 82.3 08/19/25 09:50 ABG Base Excess 5.6 mmol/L (-2.0-2.0) H 08/20/25 04:15 Andry Test Pos 08/20/25 04:15 A-a O2 Gradient 4.9 mmHg (5-10) L 08/19/25 09:50 Hematocrit 22.8 % (37-47) L 08/20/25 04:15 Hgb O2 Saturation 80.6 % (95-100) L 08/19/25 09:50 Carboxyhemoglobin 1.1 %THgb (0.4-20.1) 08/19/25 09:50 Methemoglobin 0.9 % (0.4-1.5) 08/19/25 09:50 Total Hemoglobin 10.2 g/dL (12-16) L 08/19/25 09:50 Sodium 140.0 mmol/L (131-143) 08/19/25 09:50 Potassium 5.5 mmol/L (3.5-5.0) H 08/19/25 09:50 Glucose 338.0 mg/dL (70-115) H 08/19/25 09:50 Ionized Calcium 1.3 mmol/L (1.1-1.4) 08/19/25 09:50 O2 Delivery Device Nc 08/20/25 04:15 O2 Liters/Min 1.0 % 08/20/25 04:15 FiO2 26.0 % 08/20/25 04:15 Meter Reading Clerk ID Bd 08/20/25 04:15 Sodium 136 mmol/L (136-145) 08/21/25 04:32 Potassium 4.1 mmol/L (3.5-5.1) 08/21/25 04:32 Chloride 99 mmol/L (98-107) 08/21/25 04:32 Carbon Dioxide 23 mmol/L (22-29) 08/21/25 04:32 Anion Gap 18.1 (5-19) 08/21/25 04:32 BUN 17 mg/dL (6-20) 08/21/25 04:32 Creatinine 3.0 mg/dL (0.5-0.9) H 08/21/25 04:32 GFR Calculation 16.3 mL/min (90-130) L 08/21/25 04:32 Glucose 118 mg/dL (65-115) H 08/21/25 04:32 POC Glucose 159 mg/dL (70-110) H 08/21/25 07:16 Calculated Osmolality 285 mOsm/kg (285-295) 08/21/25 04:32 Calcium 8.8 mg/dL (8.5-10.5) 08/21/25 04:32 Total Bilirubin 0.6 mg/dL (0.15-1.2) 08/21/25 04:32 AST 21 U/L (0-32) 08/21/25 04:32 ALT 13 U/L (0-33) 08/21/25 04:32 Alkaline Phosphatase 61 U/L (35-105) 08/21/25 04:32 Lactate Dehydrogenase 263 U/L (135-214) H 08/19/25 14:18 Troponin T Baseline 205 ng/L (0-10) H* 08/19/25 10:15 Troponin T 120 Minute 203.9 ng/L (0-10) H 08/19/25 12:26 Delta Troponin T -1.1 ABS# (0-10) L 08/19/25 12:26 Troponin T Hi Sens 6Hr 258.6 ng/L (0-10) H 08/19/25 16:38 Troponin T Hi Sens 6Hr Delta 53.6 ng/L (0-12) H* 08/19/25 16:38 Total Protein 6.4 g/dL (6.6-8.7) L 08/21/25 04:32 Albumin 3.2 g/dL (3.5-5.2) L 08/21/25 04:32 Globulin 3.2 g/dL (1.3-4.6) 08/21/25 04:32 Urine Color Yellow (Yellow) 08/19/25 12:17 Urine Appearance Clear (CLEAR) 08/19/25 12:17 Urine pH 8.5 (5-7) A 08/19/25 12:17 Ur Specific Guys 1.011 (1.005-1.030) 08/19/25 12:17 Urine Protein 3+ (Negative) A 08/19/25 12:17 Urine Glucose (UA) 2+ (Normal) H 08/19/25 12:17 Urine Ketones Negative (Negative) 08/19/25 12:17 Urine Blood Non-haemolysed trace (Negative) 08/19/25 12:17 Urine Nitrate Negative (Negative) 08/19/25 12:17 Urine Bilirubin Negative (Negative) 08/19/25 12:17 Urine Urobilinogen 0.2 mg/dL (Negative) 08/19/25 12:17 Ur Leukocyte Esterase Negative (Negative) 08/19/25 12:17 Urine RBC 0-2 /hpf (0-2) 08/19/25 12:17 Urine WBC 0-5 /hpf (0-5) 08/19/25 12:17 Ur Squamous Epith Cells 0-5 /hpf (0-5) 08/19/25 12:17 Ur Transition Epith Cell 0-4 /hpf 08/19/25 12:17 Amorphous Sediment Not Reportable 08/19/25 12:17 Urine Bacteria None seen /hpf (NONE) 08/19/25 12:17 Hyaline Casts 0-4 /lpf H 08/19/25 12:17 Reaction Clerical Check No discrepancy 08/19/25 14:18 Pre-Trans Blood Type Op 08/19/25 14:18 Post-Trans Blood Type O Positive 08/19/25 14:18 Post-Tx Visible Hemolys No hemolysis 08/19/25 14:18 Post-Trans ARSLAN Negative 08/19/25 14:18 Micro: Microbiology 08/19/25 16:38 Blood Culture - Preliminary Blood NEGATIVE TO DATE 08/19/25 15:20 Blood Culture - Preliminary Blood NEGATIVE TO DATE A&P Assessment and plan 1. Acute decompensated heart failure: The heart failure seems to be compensated at this point. Myocardial on the current management. 2. Essential hypertension: The hydralazine seems to be helping the blood pressure. Patient may be continued on the same. 3. Mixed hyperlipidemia: May continue on the current management. 4. Congestive heart failure, unspecified HF chronicity, unspecified heart failure type: Maybe continue on the torsemide and dialysis as scheduled 5. Uncontrolled type 2 diabetes mellitus with hyperglycemia: Management as per the primary Plan: Since the patient's overall status seems to be stable, may continue on the current management. She may not require any further cardiac investigations at this point. Appointment the [facility] in 2 weeks, to be seen by the nurse practitioner. Appointment with Dr. Ramirez and schedule PDMP PDMP Reviewed: Not Reviewed Attestations Medical Necessity Statement*: Deferred to the primary Coding Level of Care Code 03935 Diagnoses Acute decompensated heart failure I50.9 Essential hypertension I10 Mixed hyperlipidemia E78.2 Hyperlipidemia type: mixed hyperlipidemia Congestive heart failure, unspecified HF chronicity, unspecified heart failure type I50.9 Heart failure chronicity: unspecified Heart failure type: unspecified Uncontrolled type 2 diabetes mellitus with hyperglycemia E11.65 Glycemic state: with hyperglycemia
--- NOTE | 2025-08-21 09:14 | P.DS_ITS ---
Discharge Providers Date of Admission: 08/19/25 11:00 Date of Discharge: August 21, 2025 Attending Provider at Admission: Sean Abdul Attending Provider at Discharge: Sean Abdul Primary Care Provider: SEGUN Mulligan Diagnoses at Discharge Discharge Diagnosis 1. Acute decompensated heart failure: 2. Essential hypertension: 3. Mixed hyperlipidemia: 4. Congestive heart failure, unspecified HF chronicity, unspecified heart failure type: 5. Uncontrolled type 2 diabetes mellitus with hyperglycemia: Reason for Visit Reason for Visit: low 02 Brief History: Lizy Evans is a 54 year old patient with end-stage renal disease (ESRD) on hemodialysis, diabetes mellitus type 2, anemia, inflammatory arthritis, seronegative spondyloarthropathy, generalized anxiety disorder (FRANCK), and major depressive disorder (MDD), referred for RBC transfusion after an emergency department (ED) visit three days ago. Hemoglobin (Hgb) was reported less than 7 g/dL at the dialysis clinic; in the ED Hgb was 7 g/dL. During transfusion, developed hypertension and shortness of breath requiring supplemental oxygen; transfusion was stopped and the blood was returned to the blood bank for verification. Usual hemodialysis schedule is Tuesday//Tuesday; the most recent session (reported as Tuesday) was stopped early due to tubing clotting (per pt). Denies cough with phlegm, chest pain/pressure, fever, nausea, vomiting, diarrhea, abdominal pain, leg swelling, melena, or hematochezia. Does not use home oxygen. Denies sleep apnea and does not use CPAP. Reports home blood pressures run high, with values reportedly up to the 250s, and does not take extra medication for spikes. Monitors fluid intake at home (details not quantified). Ambulates independently and lives with daughter. Prior hospitalization in early July for hypoxic respiratory failure with pleural effusion; history notable for inadequate peritoneal dialysis at home and possible peritoneal dialysis (PD) peritonitis treated with broad-spectrum antibiotics with PD catheter removal. At that time, antihypertensives were adjusted; anemia was noted; stool hemoccult was positive and aspirin was discontinued. Prior echocardiogram (07/16) showed left ventricular ejection fraction ~55?60%, moderate left ventricular hypertrophy, left atrial dilation, and mild mitral regurgitation. Prior right-sided thoracic procedures in Jun?Jul included thoracoscopy with pleural biopsy, right pleurodesis with PleurX catheter placement (later removed due to low output), and thoracenteses; cytology and biopsy were negative for malignancy. In the current ED/inpatient course, labs included: CBC with WBC 17.4 K/?L, Hgb varied 7.5?9 g/dL, platelets 354 K/?L; ABG pH 7.29, pCO2 50.6 mmHg, pO2 52 mmHg, bicarbonate 24 mEq/L; chemistry: sodium 136 mEq/L, potassium 5.4 mEq/L, chloride 98 mEq/L, bicarbonate 21 mEq/L, anion gap 22.4, BUN 44 mg/dL, creatinine 4.3 mg/dL, glucose 338 mg/dL; liver tests largely normal except alkaline phosphatase mildly elevated at 131 IU/L; troponin baseline 205 ng/L with 2-hour 204 ng/L; urinalysis with 2+ glucose, 3+ protein, nitrite trace; chest X-ray with bilateral pulmonary opacities consistent with pulmonary edema, cardiomegaly, and bilateral pleural effusions; EKG with sinus rhythm and possible Q-waves in V1?V2 (pending official read). Received hydralazine 20 mg IV push, labetalol 10 mg, lorazepam (Ativan) 1 mg, furosemide (Lasix) 80 mg IV push; started on a nicardipine drip for hyperte nsive emergency. Prior code status noted as Full Code. When asked, patient agreed to intubation/ventilation if needed and chest compressions if cardiac arrest occurred. Hospital Course Hospital Course She was admitted to intensive care unit managed with BiPAP support with acute respiratory failure with hypoxia and hypercapnia, received Lasix and additional dialysis. Hypertensive emergency managed with nicardipine. Transfusion reaction assessment requested with blood bank and came back negative. Troponin noted with positive delta, although remained chest pain-free. TTE with decrease in ejection fraction down to 45 to 50% from previous 55 to 60% cardiology consultation obtained and further evaluation considered. She had just had a stress test in the beginning of July, invasive evaluation considered as an option as well. After consideration of options and discussion by cardiology with patient given no evidence of current ongoing ischemia, and she remains symptom-free, after resolution of symptoms following likely TACO, less likely TRALI, hypertensive emergency, with optimization of blood pressure with addition of hydralazine, and she was resumed on Plavix, continued follow-up was recommended by cardiology and consideration of additional evaluation in case of symptom recurrence. Anemia monitored while in the hospital with resumption of Plavix. Hemoglobin remained stable in the low sevens. She received epoetin. She received iron as well with dialysis. Please follow-up blood counts to reassess anemia. Her appointment with surgery for consideration of endoscopic evaluation with previously positive Hemoccult to find a source of possible slow blood loss was rescheduled due to hospitalization to 08/26. Physical Exam Narrative: She is awake alert, pleasant, conversant, accompanied by male family member. Const: COMMON NORMALS: patient oriented x3 and alert GENERAL APPEARANCE: cooperative ORIENTATION/CONSCIOUSNESS: Yes awake HENMT: COMMON NORMALS: oropharynx normal Neck/C-Spine: COMMON NORMALS: no JVD Resp: COMMON NORMALS: normal respiratory effort and clear to auscultation bilaterally AUSCULTATION: clear to auscultation bilaterally Cardio: COMMON NORMALS: no JVD, regular rhythm, S1 normal heart sound present, S2 normal heart sound present and No murmurs present (Cardio) RHYTHM: regular rhythm HEART SOUNDS: S1 normal heart sound present and S2 normal heart sound present GI: COMMON NORMALS: Normal to inspection, nondistended, normoactive bowel sounds present, Soft to palpation and non-tender PALPATION: Yes Soft to palpation Extremity: COMMON NORMALS: no joint enlargement and no pedal edema Neuro: COMMON NORMALS: patient oriented x3 and moves all extremities SENSORIUM/ORIENTATION: Yes alert Skin: COMMON NORMALS: no rashes or lesions noted GENERAL SKIN EXAM: no rashes or lesions noted Urinary Catheter Management: Segal: Cath Placed During This Visit: yes Reason for Continuing Indwelling Catheter: Accurate Measurement of Urinary Output in Critically Ill Patients Urinary Catheter Date of Insertion: 08/19/25 Urinary Catheter Time of Insertion: 12:28 Discharge Data Studies Completed and Pending Completed Studies During Hospitalization Category Date Time Status XR chest 1V portable [id number] Stat Exams 08/19/25 09:46 Completed CV. echo limited [id number] Routine Ultrasound 08/19/25 14:46 Completed Pending at discharge Category Date Time Status Blood Culture Stat Lab 08/19/25 16:38 Results Complete Blood Count w/Auto AM LABS Lab 08/22/25 04:00 Ordered Comprehensive Metabolic Panel AM LABS Lab 08/22/25 04:00 Ordered Radiology Impressions Chest X-Ray 08/19/25 09:46 Impression: 1. Bilateral pulmonary opacities probably pulmonary edema. 2. Cardiomegaly and bilateral pleural effusions. Laboratory Results WBC 5.80 10^3/uL (3.29-11.43) 08/21/25 04:32 RBC 2.66 10^6/uL (3.85-5.65) L 08/21/25 04:32 Hgb 7.30 g/dL (11.27-16.99) L 08/21/25 04:32 Hct 24.3 % (36-47) L 08/21/25 04:32 MCV 91.4 fl (85-98) 08/21/25 04:32 MCH 27.4 pg (27-33) 08/21/25 04:32 MCHC 30.0 g/dL (30-55) 08/21/25 04:32 RDW 16.8 % (12.1-15.1) H 08/21/25 04:32 Plt Count 215 10^3/cmm (157-399) 08/21/25 04:32 MPV 10.2 fL (7.4-10.4) 08/21/25 04:32 Neut % (Auto) 47.8 % 08/21/25 04:32 Lymph % (Auto) 33.8 % 08/21/25 04:32 Mchenry % (Auto) 9.5 % 08/21/25 04:32 Eos % (Auto) 6.6 % 08/21/25 04:32 Baso % (Auto) 0.9 % 08/21/25 04:32 Reticulocyte % (Auto) 1.6 % (0.5-2.0) 08/19/25 14:18 Neut # (Auto) 2.78 10^3/uL (1.8-7.7) 08/21/25 04:32 Lymph # (Auto) 2.0 10^3/uL (0.8-4.8) 08/21/25 04:32 Mchenry # (Auto) 0.6 10^3/uL (0.2-0.9) 08/21/25 04:32 Eos # (Auto) 0.4 10^3/uL (0.0-0.8) 08/21/25 04:32 Baso # (Auto) 0.1 10^3/uL (0.0-0.1) 08/21/25 04:32 Nucleated RBC % (auto) 0 % 08/21/25 04:32 Nucleated RBCs # 0.0 /100WBC 08/21/25 04:32 Retic Production Index 0.96 08/19/25 14:18 Haptoglobin 181.0 mg/L (30-200) 08/19/25 14:18 Specimen Type Arterial 08/20/25 04:15 Sample Site Brachial, left 08/20/25 04:15 ABG pH 7.48 (7.35-7.45) H 08/20/25 04:15 ABG pCO2 39.5 mmHg (35-45) 08/20/25 04:15 ABG pO2 71.7 mmHg (80.0-100.0) L 08/20/25 04:15 ABG PO2/FiO2 Ratio 275 08/20/25 04:15 ABG HCO3 29.5 mmol/L (22-26) H 08/20/25 04:15 ABG O2 Saturation 82.3 08/19/25 09:50 ABG Base Excess 5.6 mmol/L (-2.0-2.0) H 08/20/25 04:15 Andry Test Pos 08/20/25 04:15 A-a O2 Gradient 4.9 mmHg (5-10) L 08/19/25 09:50 Hematocrit 22.8 % (37-47) L 08/20/25 04:15 Hgb O2 Saturation 80.6 % (95-100) L 08/19/25 09:50 Carboxyhemoglobin 1.1 %THgb (0.4-20.1) 08/19/25 09:50 Methemoglobin 0.9 % (0.4-1.5) 08/19/25 09:50 Total Hemoglobin 10.2 g/dL (12-16) L 08/19/25 09:50 Sodium 140.0 mmol/L (131-143) 08/19/25 09:50 Potassium 5.5 mmol/L (3.5-5.0) H 08/19/25 09:50 Glucose 338.0 mg/dL (70-115) H 08/19/25 09:50 Ionized Calcium 1.3 mmol/L (1.1-1.4) 08/19/25 09:50 O2 Delivery Device Nc 08/20/25 04:15 O2 Liters/Min 1.0 % 08/20/25 04:15 FiO2 26.0 % 08/20/25 04:15 Financial Services Professional ID Bd 08/20/25 04:15 Sodium 136 mmol/L (136-145) 08/21/25 04:32 Potassium 4.1 mmol/L (3.5-5.1) 08/21/25 04:32 Chloride 99 mmol/L (98-107) 08/21/25 04:32 Carbon Dioxide 23 mmol/L (22-29) 08/21/25 04:32 Anion Gap 18.1 (5-19) 08/21/25 04:32 BUN 17 mg/dL (6-20) 08/21/25 04:32 Creatinine 3.0 mg/dL (0.5-0.9) H 08/21/25 04:32 GFR Calculation 16.3 mL/min (90-130) L 08/21/25 04:32 Glucose 118 mg/dL (65-115) H 08/21/25 04:32 POC Glucose 159 mg/dL (70-110) H 08/21/25 07:16 Calculated Osmolality 285 mOsm/kg (285-295) 08/21/25 04:32 Calcium 8.8 mg/dL (8.5-10.5) 08/21/25 04:32 Total Bilirubin 0.6 mg/dL (0.15-1.2) 08/21/25 04:32 AST 21 U/L (0-32) 08/21/25 04:32 ALT 13 U/L (0-33) 08/21/25 04:32 Alkaline Phosphatase 61 U/L (35-105) 08/21/25 04:32 Lactate Dehydrogenase 263 U/L (135-214) H 08/19/25 14:18 Troponin T Baseline 205 ng/L (0-10) H* 08/19/25 10:15 Troponin T 120 Minute 203.9 ng/L (0-10) H 08/19/25 12:26 Delta Troponin T -1.1 ABS# (0-10) L 08/19/25 12:26 Troponin T Hi Sens 6Hr 258.6 ng/L (0-10) H 08/19/25 16:38 Troponin T Hi Sens 6Hr Delta 53.6 ng/L (0-12) H* 08/19/25 16:38 Total Protein 6.4 g/dL (6.6-8.7) L 08/21/25 04:32 Albumin 3.2 g/dL (3.5-5.2) L 08/21/25 04:32 Globulin 3.2 g/dL (1.3-4.6) 08/21/25 04:32 Urine Color Yellow (Yellow) 08/19/25 12:17 Urine Appearance Clear (CLEAR) 08/19/25 12:17 Urine pH 8.5 (5-7) A 08/19/25 12:17 Ur Specific [place] 1.011 (1.005-1.030) 08/19/25 12:17 Urine Protein 3+ (Negative) A 08/19/25 12:17 Urine Glucose (UA) 2+ (Normal) H 08/19/25 12:17 Urine Ketones Negative (Negative) 08/19/25 12:17 Urine Blood Non-haemolysed trace (Negative) 08/19/25 12:17 Urine Nitrate Negative (Negative) 08/19/25 12:17 Urine Bilirubin Negative (Negative) 08/19/25 12:17 Urine Urobilinogen 0.2 mg/dL (Negative) 08/19/25 12:17 Ur Leukocyte Esterase Negative (Negative) 08/19/25 12:17 Urine RBC 0-2 /hpf (0-2) 08/19/25 12:17 Urine WBC 0-5 /hpf (0-5) 08/19/25 12:17 Ur Squamous Epith Cells 0-5 /hpf (0-5) 08/19/25 12:17 Ur Transition Epith Cell 0-4 /hpf 08/19/25 12:17 Amorphous Sediment Not Reportable 08/19/25 12:17 Urine Bacteria None seen /hpf (NONE) 08/19/25 12:17 Hyaline Casts 0-4 /lpf H 08/19/25 12:17 Reaction Clerical Check No discrepancy 08/19/25 14:18 Pre-Trans Blood Type Op 08/19/25 14:18 Post-Trans Blood Type O Positive 08/19/25 14:18 Post-Tx Visible Hemolys No hemolysis 08/19/25 14:18 Post-Trans ARSLAN Negative 08/19/25 14:18 Vitals Last Vital Signs Temp 98.3 F 08/21/25 04:30 Pulse 88 08/21/25 08:16 Resp 15 08/21/25 06:00 BP 148/63 08/21/25 06:00 Pulse Ox 96 08/21/25 08:16 O2 Del Method Nasal Cannula 08/21/25 08:16 O2 Flow Rate 1 08/21/25 08:16 FiO2 30 08/19/25 16:37 Discharge Plan Discharge Patient Disposition: Home Condition: Stable Prescriptions: New clopidogrel 75 mg Tablet 75 mg PO DAILY Qty: 90 0RF hydralazine 50 mg Tablet 50 mg PO TID Qty: 270 0RF Continued (DME) FreeStyle Palak 3 Plus Sensor Device See Rx Instructions .Route Qty: 2 12RF Rx Instructions: As directed (DME) diabetic shoes with 3 inserts See Rx Instructions .Route .MEDSUPPLY Qty: 1 0RF Rx Instructions: As directed to the shoe david calcitriol 0.25 mcg capsule 0.25 mcg PO DAILY sodium bicarbonate 650 mg tablet 650 mg PO BID insulin aspart U-100 [Novolog FlexPen U-100 Insulin] 100 unit/mL (3 mL) insulin pen See Rx Instructions .ROUTE .COMPLEX Qty: 15 0RF Rx Instructions: Inject, subcut, 3 times daily, after meals, based on low-dose sliding scale duloxetine 30 mg capsule,delayed release(DR/EC) 30 mg PO .q am Qty: 30 0RF Rx Instructions: Take one capsule by mouth every morning cetirizine 10 mg Tablet 10 mg PO DAILY PRN (Reason: Allergy Symptoms) torsemide 100 mg tablet 100 mg PO DAILY sevelamer carbonate 800 mg tablet 800 mg PO TID atorvastatin 40 mg tablet 40 mg PO DAILY Rx Instructions: TAKE 1 TABLET BY MOUTH ONCE DAILY AT 5PM gentamicin 0.1 % cream See Rx Instructions .ROUTE .COMPLEX Rx Instructions: APPLY TO PD (PERITONEAL DIALYSIS) SITE ONCE A DAY (APPLY AFTER CLEANING SITE). pantoprazole [Protonix] 40 mg tablet,delayed release (DR/EC) 40 mg PO QAM Qty: 60 0RF Rx Instructions: Twice daily for next 2 weeks followed by once daily sucralfate [Carafate] 1 gram tablet 1 g PO TID 84 Days Qty: 252 0RF Rx Instructions: for 12 weeks RenaPlex-D 800 mcg-12.5 mg -2,000 unit tablet See Rx Instructions .ROUTE .COMPLEX Rx Instructions: TAKE 1 TABLET BY MOUTH EVERY DAY (ON DIALYSIS DAYS, TAKE AFTER DIALYSIS TREATMENT) nifedipine 90 mg Tablet Extended Release 90 mg PO DAILY losartan 50 mg Tablet 100 mg PO DAILY RenaPlex-D 800 mcg-12.5 mg -2,000 unit Tablet 1 tab PO DAILY Rx Instructions: On Dialysis Day Treatmets carvedilol 12.5 mg Tablet 18.75 mg PO BID Rx Instructions: must administer with a meal/food clonidine HCl 0.1 mg Tablet 0.1 mg PO TID Discharge Order = DC NOW: Discharge Order (Routine); Ordered 08/21/25 Ordered By: Sean Abdul Referrals: [facility] - [Outside] Brady Magana MD [Physician, General Surgery] - 08/26/25 10:20 am Winter Ramirez MD [Physician, Cardiology] - 09/19/25 4:00 pm Referral Note: cardiomyopathy, CAD Joellen Hill FNP [Primary Care Provider, [facility]] - 08/28/25 9:20 am Discharge Diet: As Directed Discharge Activity: Increase activity as tolerated and Oxygen as instructed Patient Instructions: Hydralazine (By mouth) (Apresoline), Clopidogrel (By mouth) (Plavix), Heart Failure (DC), Sepsis (DC), Anemia (DC), Hypoxia (GEN), End Stage Kidney Disease (DC), CHF Stoplight, Opioid Safety, Patient Portal & Barak Instructions Activity Restrictions/Additional Instructions: Please follow up with your primary provider and ravisit with surgery for reassessment of anemia and arrangemens for endoscopic evaluation. Follow-up with cardiology in office for reassessment of coronary disease and decrease in ejection fraction, as well as continued optimization of control of resistant hypertension requiring multiple medications. Hydralazine is being added back to her regimen. Continue to monitor blood pressures, long-term target blood pressure 120/80 or less. Continue renal dialysis diet. Follow-up with nephrology and continue hemodialysis as was for reassessment of anemia and hypertension. Discharge Attestations Time Spent in Discharge Care*: greater than 30 min Status at Discharge: Cognitive status at discharge: cognitively intact , Behavioral status at discharge: cooperative , Quality Metrics Clinical Quality Measures [ No reported AMI, CVA or VTE this stay] Coding Level of Care Code 38790 Total time (in minutes) for Discharge: 55 Diagnoses Acute decompensated heart failure I50.9 Essential hypertension I10 Mixed hyperlipidemia E78.2 Hyperlipidemia type: mixed hyperlipidemia Congestive heart failure, unspecified HF chronicity, unspecified heart failure type I50.9 Heart failure chronicity: unspecified Heart failure type: unspecified Uncontrolled type 2 diabetes mellitus with hyperglycemia E11.65 Glycemic state: with hyperglycemia
--- NOTE | 2025-08-21 10:08 | PM.PN ---
Subjective Subjective: Patient seen and examined. Patient remains short of breath but much improved. Per nurse no edema no wheezing on exam. Patient wants to go home. Medications: Reviewed: Yes Medication Review Details: Current Medications Acetaminophen (Acetaminophen 325 Mg Tablet) 650 mg PO Q6H PRN PRN Reason: Mild/Mod Pain Or Temp >/= 101 Carvedilol (Carvedilol 12.5 Mg Tablet) 18.75 mg PO BID [facility] Last Admin: 08/21/25 04:40 Dose: 18.75 mg Clonidine HCl (Clonidine 0.1 Mg Tablet) 0.1 mg PO TID [facility] Last Admin: 08/21/25 04:41 Dose: 0.1 mg Clopidogrel Bisulfate (Clopidogrel 75 Mg Tablet) 75 mg PO DAILY [facility] Last Admin: 08/21/25 04:42 Dose: 75 mg Glucagon (Glucagon 1 Mg/Ml Kit 1 Ml) 1 mg IM ONCE PRN; Protocol PRN Reason: Adult Acute Hypoglycemia Nursing Prot. Hydralazine HCl (Hydralazine 50 Mg Tablet) 50 mg PO TID [facility] Last Admin: 08/21/25 04:42 Dose: 50 mg Nicardipine/Sodium Chloride (Cardene) 20 mg in 200 mls @ 0 mls/hr IV .Q0M ALMITA; Protocol Last Titration: 08/20/25 08:10 Dose: 0 mg/hr, 0 mls/hr Sodium Chloride (Sodium Chloride 0.9%) 1,000 mls @ 0 mls/hr IV .Q0M PRN PRN Reason: hypotension or symptomatic Piperacillin Sod/Tazobactam (Sod 3.375 gm/ Sodium Chloride) 50 mls @ 12.5 mls/hr IV Q12H [facility]; Protocol Last Admin: 08/21/25 03:24 Dose: 12.5 mls/hr Dextrose (D5w) 500 mls @ 0 mls/hr IV ONCE PRN; Protocol PRN Reason: Adult Acute Hypoglycemia Prot Dextrose (D10w) 125 mls @ 750 mls/hr IV PRN PRN; Protocol PRN Reason: Adult Acute Hypoglycemia Nursing Protocol Dextrose (D10w) 250 mls @ 1,000 mls/hr IV PRN PRN; Protocol PRN Reason: Adult Acute Hypoglycemia Nursing Protocol Sodium Chloride (Sodium Chloride 0.9%) 1,000 mls @ 0 mls/hr IV .Q0M PRN PRN Reason: hypotension or symptomatic Albumin Human (Albumin) 12.5 gm in 50 mls @ 60 mls/hr IV PRN PRN PRN Reason: Hypotension and/or symptomatic Insulin Human Lispro (Insulin Lispro 100 Unit/1 Ml) 0 unit SUBCUT WM&BEDTIME [facility]; Protocol Last Admin: 08/21/25 08:06 Dose: 2 unit Losartan Potassium (Losartan 100 Mg Tablet) 100 mg PO DAILY [facility] Last Admin: 08/21/25 04:42 Dose: 100 mg Nifedipine (Nifedipine Er (24 Hr) 30 Mg Tablet) 90 mg PO DAILY [facility] Last Admin: 08/21/25 04:39 Dose: 90 mg Ondansetron HCl (Ondansetron 2 Mg/Ml Sdv 2 Ml) 4 mg IVP Q6H PRN PRN Reason: vomiting, or N/V if npo Pantoprazole Sodium (Pantoprazole 40 Mg Sdv) 40 mg IVP Q24H [facility] Last Admin: 08/20/25 15:53 Dose: 40 mg Vitals/I&O/Wt Last Vital Signs Temp 98.3 F 08/21/25 04:30 Pulse 88 08/21/25 08:16 Resp 15 08/21/25 06:00 BP 148/63 08/21/25 06:00 Pulse Ox 96 08/21/25 10:00 O2 Del Method Nasal Cannula 08/21/25 08:16 O2 Flow Rate 1 08/21/25 08:16 FiO2 30 08/19/25 16:37 08/20/25 08/21/25 08/21/25 22:59 06:59 14:59 Intake Total 1290 / 2140 0 / 2140 Output Total 2500 / 2500 Balance -1210 / -360 0 / -360 Weight last 48 hrs Weight 76 kg Weight 52.8 kg Weight 81 kg Physical Exam Narrative: Patient comfortable in bed. Still using nasal cannula oxygen. Vital signs noted. HEENT normocephalic atraumatic. Neck is supple Lungs examined by nurse without wheezing or crackles. Heart currently regular with systolic murmur. Abdomen soft positive bowel sounds. Extremities no edema. Dialysis access right IJ permacath. Neuro awake alert oriented x 3 Urinary Catheter Management: Segal: Cath Placed During This Visit: yes Reason for Continuing Indwelling Catheter: Accurate Measurement of Urinary Output in Critically Ill Patients Urinary Catheter Date of Insertion: 08/19/25 Urinary Catheter Time of Insertion: 12:28 Data 08/21/25 04:32 08/21/25 04:32 Micro: Microbiology 08/19/25 16:38 Blood Culture - Preliminary Blood NEGATIVE TO DATE 08/19/25 15:20 Blood Culture - Preliminary Blood NEGATIVE TO DATE A&P Assessment and plan 1. End stage renal disease on dialysis: 54-year-old lady ESRD on dialysis patient developed acute heart failure following blood transfusion. Patient has history of CAD, diabetes, hyperlipidemia. Patient has LAD stents. Patient is limited with dialysis 2 days in a row. Will give her day off of dialysis today and plan for repeat dialysis tomorrow. Can use GDMT for her heart failure as per cardiology. Patient's heart failure is mildly reduced EF. Will attempt to remove more fluid on dialysis tomorrow and try to decrease blood pressure medications. Will start weaning off of clonidine. Anemia will give Epogen. Will give furosemide. If okay with medicine will keep overnight to ensure she tolerates dialysis well tomorrow and we adjust blood pressure medications. If patient is insistent on going home please ensure she goes to dialysis tomorrow. Plan: See above treat blood pressure and treat heart failure as per cardiology, PDMP PDMP Reviewed: Not Reviewed Attestations Medical Necessity Statement*: Per medicine and cardiology. Time Spent in Patient Care: 16 - 35 minutes (>than 50% of time spent in counselling and/or direct pt care on unit). Coding Level of Care Code Acute Code for Chg Fwd Diagnoses End stage renal disease on dialysis N18.6; Z99.2
--- NOTE | 2025-08-21 11:53 | PC.SOCIAL ---
IMM Updated Updated pt on IMM. No questions voiced. Provided pt a copy. Initialed, dated, & timed a copy & placed in chart.
--- NOTE | 2025-08-21 12:36 | PC.NURSE ---
Patient was given all discharge instructions and prescriptions. All Ivs were discontinued. Patient was stable during discharge.
== END 2025-08-21 12:36 | disposition home or self-care (01) | DRG 640 ==
LOC: ER 10:24 → ICU 11:00
PROVIDERS: Admitting Provider Internal Medicine; Emergency Provider Family Medicine; PCP Registered Nurse; Visit Provider Internal Medicine
DX: E87.71 Transfusion associated circulatory overload (principal); I21.A1 Myocardial infarction type 2; I50.33 Acute on chronic diastolic (congestive) heart failure; N18.6 End stage renal disease; J96.02 Acute respiratory failure with hypercapnia; J96.01 Acute respiratory failure with hypoxia; J95.84 Transfusion-related acute lung injury (TRALI); I13.2 Hypertensive heart and chronic kidney disease with heart failure and with stage 5 chronic kidney disease, or end stage renal disease; I16.1 Hypertensive emergency; E11.22 Type 2 diabetes mellitus with diabetic chronic kidney disease; E78.2 Mixed hyperlipidemia; E11.65 Type 2 diabetes mellitus with hyperglycemia; E11.319 Type 2 diabetes mellitus with unspecified diabetic retinopathy without macular edema; E11.40 Type 2 diabetes mellitus with diabetic neuropathy, unspecified; D63.1 Anemia in chronic kidney disease; M06.00 Rheumatoid arthritis without rheumatoid factor, unspecified site; F41.1 Generalized anxiety disorder; F33.41 Major depressive disorder, recurrent, in partial remission; G47.00 Insomnia, unspecified; R19.5 Other fecal abnormalities; F43.12 Post-traumatic stress disorder, chronic; G89.29 Other chronic pain; Z96.652 Presence of left artificial knee joint; E11.51 Type 2 diabetes mellitus with diabetic peripheral angiopathy without gangrene; Z99.2 Dependence on renal dialysis; Z79.4 Long term (current) use of insulin
CPT/HCPCS: 36415; 36416; 36430; 36600; 51702; 71045; 80051; 80053; 80503; 81001; 82330; 82803; 82805; 82962; 83010; 83615; 84484; 85014; 85018; 85025; 85045; 86850; 86900; 86920; 87040; 90935; 93005; 93308; 94660; 94664; 94760; 96365; 96372; 96375; 99283; 99291; J0360; J1644; J1815; J1938; J2060; J2404; J2470; J2543; J3490; J9999; P9016; Q5105

== ENCOUNTER → 2025-09-03 08:08 | Outpatient (BNVA) | payer OTHER, MEDICAID, SELFPAY | PROVIDERS: PCP Registered Nurse; Visit Provider Surgery | DX: Z12.11 Encounter for screening for malignant neoplasm of colon (principal); R03.0 Elevated blood-pressure reading, without diagnosis of hypertension | CPT/HCPCS: 99214 ==

== ENCOUNTER 2025-09-25 10:39 | Outpatient (CLI) | payer OTHER, MEDICAID, SELFPAY ==
--- NOTE | 2025-09-25 10:53 | MM_ITS ---
WS: [id number] BILATERAL SCREENING DIGITAL TOMOSYNTHESIS MAMMOGRAM WITH CAD HISTORY: SCREENING MAMMOGRAM COMPARISON: 09/20/2024, 06/03/2022 Bilateral CC and MLO views with tomosynthesis and synthetic mammography submitted. Computer aided detection analyzed. Breast composition: There are scattered areas of fibroglandular density. No suspicious masses, microcalcifications or architectural distortion. Bilateral breast arterial calcifications. Portion of the RIGHT breast is obscured by overlying dialysis catheter. MM/MM scr BI tomosynthesis [id number] IMPRESSION: BI-RADS: 2 - Benign. FOLLOW UP: 1 Year Follow-up
== END 2025-09-25 10:40 | disposition home or self-care (01) ==
LOC: RAD 10:45
PROVIDERS: PCP Registered Nurse; Visit Provider Registered Nurse
DX: Z12.31 Encounter for screening mammogram for malignant neoplasm of breast (principal); R92.323 Mammographic fibroglandular density, bilateral breasts; R92.1 Mammographic calcification found on diagnostic imaging of breast; T82.49XA Other complication of vascular dialysis catheter, initial encounter; X58.XXXA Exposure to other specified factors, initial encounter
CPT/HCPCS: 77063; 77067

== ENCOUNTER 2025-09-26 07:21 | Day surgery (SDC) | payer OTHER, MEDICAID, SELFPAY ==
[2025-09-26 07:15] VITALS: BP 127/60; PULSE 97; RESP 12; TEMP 36.1; O2SAT 100
[2025-09-26 07:34] VITALS: BP 135/62; PULSE 68; RESP 16; TEMP 36.6; O2SAT 100
--- NOTE | 2025-09-26 07:35 | P.HPUD_ITS ---
Surgery/Procedure H&P Update DATE OF PROCEDURE: September 26, 2025 DATE H&P PERFORMED: 09/03/25 H&P UPDATE INFORMATION: I have reviewed H&P completed within last 30 days, I have examined patient prior to procedure, No changes to prior documentation, H&P is in [facility] EMR on date indicated and Risks and benefits of the procedure reviewed PLANNED PROCEDURE: Operation Date: 09/26/25 08:50 Proposed Procedures p EGD EGD with Biopsy [id number] G0105 D50.9(Not Applicable) - Brady Magana MD s Colonoscopy(Not Applicable) - Brady Magana MD
[2025-09-26 08:11] LABS: Hematocrit 30.2 % (36-47); Hemoglobin 9.70 g/dL (11.27-16.99)
[2025-09-26 08:30] LABS: Alanine Aminotransferase 12 U/L (0-33); Albumin Level 4.0 g/dL (3.5-5.2); Alkaline Phosphatase 84 U/L (35-105); Anion Gap 21.9 (5-19); Aspartate Amino Transferase 19 U/L (0-32); Blood Urea Nitrogen 43 mg/dL (6-20); Calcium 9.9 mg/dL (8.5-10.5); Carbon Dioxide 22 mmol/L (22-29); Chloride 96 mmol/L (98-107); Globulin 3.7 g/dL (1.3-4.6); Glucose 147 mg/dL (65-115); Osmolality Calculated 294 mOsm/kg (285-295); Potassium 4.9 mmol/L (3.5-5.1); Sodium 135 mmol/L (136-145); Total Protein 7.7 g/dL (6.6-8.7)
--- NOTE | 2025-09-26 08:34 | ANES.PREANE2 ---
Pre-Anesthetic Assessment Height/Weight: Height 1.64 m Temp Pulse Resp BP Pulse Ox O2 Del Method 97.9 F 68 16 135/62 100 Room Air 09/26/25 07:34 09/26/25 07:34 09/26/25 07:34 09/26/25 07:34 09/26/25 07:34 09/26/25 07:34 Operation Date: 09/26/25 08:50 Proposed Procedures p EGD EGD with Biopsy [id number] G0105 D50.9(Not Applicable) - Brady Magana MD s Colonoscopy(Not Applicable) - Brady Magana MD Was Beta Le taken within 24 hours: N/A Was Clonidine taken within 24 hours: N/A Last intake: Intake Last Liquid Date 09/25/25 Last Liquid Time 22:00 Last Solid Date 09/24/25 Last Solid Time 20:30 Social No alcohol and No tobacco Exam alert, oriented x 3, clear to auscultation bilaterally and regular rate & rhythm Airway Submandibular: within normal limits Cervical ROM: within normal limits Mallampati: Class II Dentition: chipped (left lower molar) History/ROS No significant history except as noted and Other Pulmonary None reported CV/HEM Hypertension LAD stent in nov , on dual therapy cardiac cleanarace states stop plavix 5 days before procedure, no recent chast pain or discomfort ESRD on dialysis, K 4.9 this morning Hepatic None reported GI Gastroesophageal Reflux Disease Metabolic Diabetes Mellitus Anesthetic Plan ASA status: 4 Anesthesia: MAC Risk of > 500 ml blood loss (7ml/kg in children): No Medications/Allergies Home Medications ?Medication ?Instructions ?Recorded ?Confirmed ?Last Taken ?Type cetirizine 10 mg tablet 10 mg PO DAILY PRN Allergy Symptoms 05/23/24 09/23/25 09/24/25 History calcitriol 0.25 mcg capsule 0.25 mcg PO DAILY 10/30/24 09/23/25 09/24/25 History sevelamer carbonate 800 mg tablet 800 mg PO TID 12/07/24 09/23/25 09/24/25 History torsemide 100 mg tablet 100 mg PO DAILY 12/07/24 09/23/25 09/24/25 History sodium bicarbonate 650 mg tablet 650 mg PO BID 04/16/25 09/23/25 09/24/25 History diabetic shoes with 3 inserts #1 ea 04/18/25 09/03/25 08/18/25 Rx insulin aspart U-100 100 unit/mL See Rx Instructions .Route 07/12/25 09/23/25 09/24/25 Rx (3 mL) subcutaneous pen (Novolog .COMPLEX #15 mL FlexPen U-100 Insulin aspart) pantoprazole 40 mg tablet,delayed 40 mg PO QAM #60 tabs 07/20/25 09/23/25 09/24/25 Rx release (Protonix) blood-glucose sensor (FreeStyle #2 ea 07/31/25 09/03/25 08/18/25 Rx Palak 3 Plus Sensor device) duloxetine 30 mg capsule,delayed 30 mg PO .q am #30 caps 08/12/25 09/23/25 08/18/25 Rx release Held on 08/28/25. Instructions: per hospitalist vit B,C-folic ac 800 mcg-zinc 12.5 See Rx Instructions .Route .COMPLEX 08/19/25 09/23/25 09/24/25 History mg-selen-D3 2,000 unit-vit E tablet (RenaPlex-D) hydralazine 50 mg tablet 50 mg PO TID #270 tabs 08/21/25 09/23/25 09/26/25 06:30 Rx losartan 50 mg tablet 100 mg PO DAILY 08/21/25 09/23/25 09/24/25 History vit B,C-folic ac 800 mcg-zinc 12.5 1 tab PO DAILY 08/21/25 09/23/25 09/24/25 History mg-selen-D3 2,000 unit-vit E tablet (RenaPlex-D) bisacodyl 5 mg tablet,delayed 5 mg PO DAILY #4 tabs 09/03/25 09/23/25 09/24/25 Rx release (Dulcolax (bisacodyl)) polyethylene glycol 3350 17 17 g PO ONCE 1 day #238 grams 09/03/25 09/23/25 Unknown Rx gram/dose oral powder (Miralax) atorvastatin 40 mg tablet 40 mg PO DAILY #30 tabs 09/16/25 09/23/25 09/24/25 Rx carvedilol 12.5 mg tablet 18.75 mg (1.5 x 12.5 mg) PO BID 12/12/1109/23/25 09/26/25 06:30 Rx #360 tabs clonidine HCl 0.1 mg tablet 0.1 mg PO TID #270 tabs 09/17/25 09/23/25 09/26/25 06:30 Rx clopidogrel 75 mg tablet 75 mg PO DAILY #90 tabs 09/17/25 09/23/25 09/19/25 Rx nifedipine 90 mg tablet,extended 90 mg PO DAILY #90 tabs 09/17/25 09/23/25 09/24/25 Rx release Allergies Allergy/AdvReac Type Severity Reaction Status Date / Time venom-honey bee Allergy Severe ALGY-Redness Verified 09/26/25 07:41 of Skin marijuana (cannabis) Allergy Intermediate ADR-Nausea Verified 09/26/25 07:41 codeine AdvReac Severe ADR-Vomitin Verified 09/26/25 07:41 g morphine AdvReac Severe ADR-Vomitin Verified 09/26/25 07:41 g propoxyphene (From AdvReac Severe ADR-Vomitin Verified 09/26/25 07:41 Darvocet-N) g latex AdvReac Intermediate ALGY-Rash Verified 09/26/25 07:41 Current Medications Generic Name Dose Route Start Last Admin Trade Name Freq PRN Reason Stop Dose Admin Sodium Chloride 1,000 mls @ 15 mls/hr 09/26/25 07:25 09/26/25 07:54 Sodium Chloride 0.9% IV 09/27/25 07:24 15 mls/hr .Q24H PRN Administration COLONOSCOPY FLUIDS PFSH Anesthesia Medical History Mediastinal lymphadenopathy Anemia Sepsis Pleural effusion PAD (peripheral artery disease) Essential hypertension Peritoneal dialysis catheter in place Uncontrolled type 2 diabetes mellitus with hyperglycemia Anemia of chronic disease ESRD (end stage renal disease) Diabetic neuropathy, type II diabetes mellitus Diabetic retinopathy Bereavement Major depressive disorder, recurrent, in partial remission Psychiatric care FH: total knee replacement left HLA B27 (HLA B27 positive) High risk medication use Inflammatory arthritis Seronegative spondyloarthropathy Chronic insomnia See subjective note below. Chronic pain See subjective note below. Chronic post-traumatic stress disorder (PTSD) Generalized anxiety disorder Major depressive disorder, recurrent, moderate Surgical History (Updated 09/03/25 @ 08:14 by ROZ Ramos) History of cataract extraction History of hysterectomy for benign disease History of tonsillectomy History of appendectomy History of left knee replacement Family History Mother Hypertension Diabetes Psychiatric illness Thyroid disease Father , in his 50's Family history of premature coronary artery disease Hyperlipidemia Myocardial infarction Brother Hypertension Sister No problems noted. Denies family history of Rheumatoid arthritis Lupus Social History Smoking and tobacco/nicotine status: never used tobacco/nicotine Second hand smoke exposure: No Alcohol intake: never Substance/Drug Use: never Adopted: No Caregiver/support person: No Lives independently: No Household members: family service: No Current occupational status: unemployed and disabled Sexually active: Yes Do you think of yourself as: Straight/Heterosexual Current gender identity: Female Data Anesthesia 09/26/25 07:40 09/26/25 07:49 Short CBC 09/26/25 Range/Units 07:40 Hgb 9.70 L (11.27-16.99) g/dL Hct 30.2 L (36-47) % BMP 09/26/25 07:49 Sodium 135 L Potassium 4.9 Chloride 96 L Carbon Dioxide 22 BUN 43 H Creatinine 5.6 H* Glucose 147 H Calcium 9.9 Liver Function 09/26/25 Range/Units 07:49 Total Bilirubin 0.3 (0.15-1.2) mg/dL AST 19 (0-32) U/L ALT 12 (0-33) U/L Alkaline Phosphatase 84 (35-105) U/L Albumin 4.0 (3.5-5.2) g/dL Cardiac Studies: Echocardiogram 07/16/25 Echocardiogram Limited Views 08/19/25 Sestamibi Stress Test (Cardiology) 07/16/25
--- NOTE | 2025-09-26 08:35 | PC.NURSE ---
Received report from lab, Creatinine level 5.6. Informed Keri Harris [employer]
[2025-09-26 09:15] VITALS: BP 127/60; PULSE 97; RESP 12; TEMP 36.1; O2SAT 100
[2025-09-26 09:46] VITALS: BP 146/76; PULSE 74; RESP 16; O2SAT 97
--- NOTE | 2025-09-26 10:09 | ANE.PACU2 ---
Inpatient post-anesthesia follow up: Airway intact: Yes Vital signs: Temperature 97.0 F Pulse Rate 74 Respiratory Rate 16 Blood Pressure 146/76 Pulse Oximetry 97 Oxygen Delivery Me thod Room Air Oxygen Flow Rate Fraction of Inspir ed Oxygen Hydration adequate: Yes Nausea and vomiting: No Pain level: 1 Mental status: Baseline
== END 2025-09-26 10:10 | disposition home or self-care (01) ==
PROVIDERS: Student in an Organized Health Care Education/Training Program; PCP Registered Nurse; Visit Provider Surgery
PROC: 0DJ08ZZ Inspection of Upper Intestinal Tract, Via Natural or Artificial Opening Endoscopic (ICD-10-PCS; principal; 2025-09-26 08:50)
PROC: 0DJD8ZZ Inspection of Lower Intestinal Tract, Via Natural or Artificial Opening Endoscopic (ICD-10-PCS; CPT 45330; 2025-09-26 08:50)
DX: Z12.11 Encounter for screening for malignant neoplasm of colon (principal); K29.80 Duodenitis without bleeding; K29.50 Unspecified chronic gastritis without bleeding; Z79.02 Long term (current) use of antithrombotics/antiplatelets; K21.9 Gastro-esophageal reflux disease without esophagitis; F33.9 Major depressive disorder, recurrent, unspecified; D64.9 Anemia, unspecified; E11.22 Type 2 diabetes mellitus with diabetic chronic kidney disease; I12.0 Hypertensive chronic kidney disease with stage 5 chronic kidney disease or end stage renal disease; N18.6 End stage renal disease; F43.12 Post-traumatic stress disorder, chronic; Z79.4 Long term (current) use of insulin
CPT/HCPCS: 36415; 36416; 43239; 45378; 80053; 82962; 85014; 85018; 88305; 88342; J2704; J7030; J9999